=== PATIENT | male | born 1930 | race African-American/Black ===

== ENCOUNTER 2018-12-23 15:18 | Inpatient (IN) | payer OTHER ==
[2018-12-23] VITALS (30 sets, daily range): BP systolic 79–120; BP diastolic 34–59
[~2018-12-23] VITALS: Ht 170.2 cm; Wt 61.4 kg
[~2018-12-23 15:18] MED LIST: ALBUTEROL SULF8.5 GM INH; ATENOLOL100 MG ORAL; NORVASC10 MG ORAL; TAMSULOSIN HCL0.4 MG PO; TRAVATAN Z5 ML OP; TYLENOL EXTRA500 MG ORAL; UNOBMED
[2018-12-23] MEDS ORDERED: Sodium Chloride 1,400 ML IVLG ONE (15:30)
--- NOTE | 2018-12-23 15:30 | Emergency Room Report ---
History of Present Illness General Chief Complaint: Altered Level of Consciousness Source: Medical Record, EMS Present Illness HPI Disclaimer: Please note that this report is being documented using DRAGON technology. This can lead to erroneous entry secondary to incorrect interpretation by the dictating instrument. HPI: 88-year-old male with reported history of hypertension, hyperlipidemia, CHF , COPD and dementia presents for evaluation of hypotension altered mental status. According to EMS, he was in his usual state of health this morning but was more lethargic and less talkative during lunch. He was checked on approximately 2:30 PM found altered and nonresponsive. His reported baseline is alert and oriented x2 and conversant. He was not responding to verbal stimuli. He was also found hypotensive with systolics in the 80s. He was transported for medical evaluation and remained hypotensive en route. He received probably 250 cc bolus en route. Patient cannot provide any significant history. No reported trauma. Slightly tachypneic. PMH: Reported CHF, COPD, dementia, hypertension PSH: Could not obtain Allergies: Lisinopril, atenolol, tiotropium listed in medical chart Social Hx: Could not obtain from patient Allergies: Coded Allergies: DORZOLAMIDE (Unverified Allergy, Unknown, 12/23/18) LISINOPRIL (Unverified Allergy, Unknown, 12/23/18) TIMOLOL (Unverified Allergy, Unknown, 12/23/18) TIOTROPIUM (Unverified Allergy, Unknown, 12/23/18) Nursing Documentation-PMH Hx Cardiac Problems: Yes Hx Hypertension: Yes - HYPERTENSION Hx COPD: Yes - COPD Hx Cancer: No Hx Gastrointestinal Problems: No - GERD, BPH, Hx Neurological Problems: No Review of Systems All Other Systems: limited - Could not obtain from patient due to clinical condition Physical Exam Vital Signs Date Time Temp Pulse Resp B/P (MAP) Pulse Ox O2 Delivery O2 Flow Rate FiO2 12/23/18 15:13 98.1 59 19 89/41 (57) 93 Nasal Cannula 2.0 General: Awake, nonverbal, tachypneic HEENT: NC/AT. Eyes are open. Pupils are 4 mm bilaterally. EOMI. very dry mucous membranes Cardiovascular: RRR. S1 and S2 normal. No murmur appreciated Resp: Mild tachypnea. Slight increase in work of breathing. No cough. Faint crackles heard bilaterally. Expiratory wheezes present as well. Abdomen: Abdomen is soft, nondistended. Nontender Skin: Intact. No abrasions, laceration or rash over the exposed skin MSK: There is a bandage over the left heel for a pressure ulcer. Neuro: Awake. Moaning, purposeful movements to pain. Nonverbal. GCS 10 Procedures Critical Care Time Critical Care Time Total critical care time: Approximately 75 minutes Due to a high probability of clinically significant, life threatening deterioration, the patient required the highest level of preparedness to intervene emergently and I personally spent this critical care time directly and personally managing the patient. This critical care time included obtaining a history, examining the patient, pulse oximetry, ordering and reviewing studies , ordering treatments, evaluating response to treatment and updating management plan as needed, frequent reassessment and discussion with other providers as well as arranging for ultimate disposition. This critical to care time was performed to assess and manage the high probability of life-threatening deterioration that could result in multiorgan failure. This critical care time is separate from the separately billable procedures and treating other patients. Ultrasound Ultrasound : Consent: Emergent Progress No obvious pericardial effusion. Symmetrical squeeze. Central Line Central Line : Consent: Emergent Central Line Lumen: triple Maximal Sterile Barrier Tech: yes cap, yes mask, yes sterile gown, yes sterile gloves, yes large sterile sheet, yes hand hygiene, yes chlorhexidine prep No Max Barrier Tech Because: emergency insertion Central Line Postion: internal jugular (R) Anesthesia: Lidocaine cc's of anesthesia: 5 Complications: none Central Line Post Position: sutured, good blood return, position confirmed w / CXR Attempts: One Patient Tolerated: Well Complications: None Medical Decision Making Diagnostic Impression: Primary Impression: COPD with acute exacerbation Additional Impressions: Hypercapnic respiratory failure Anemia Sepsis UTI (urinary tract infection) Hypothermia ER Course 88-year-old male found hypotensive and altered at his nursing facility today. Different includes was not limited to sepsis, CHF exacerbation, COPD exacerbation, ACS, UTI, dehydration, acidosis, paracardial effusion, pneumothorax, pneumonia. First oral temperature was within normal limits however his core temperature taken by rectal probe is 92 degrees. We will start rewarming. Patient is tachypneic and after a bedside ultrasound has ruled out pericardial effusion emergent blood gas was taken showing significant CO2 retention and acidosis. We will start continuous DuoNeb's, give prednisone , start on BiPAP and if fails or unable to tolerate will intubate. He is full code. Will start on end-tidal CO2 monitor. Patient will require admission to the intensive care unit. Blood cultures have been sent and the patient is receiving sepsis level fluids at 30 cc/kg as he has no evidence of volume overload clinically. Laboratory Tests Test 12/23/18 15:15 12/23/18 15:25 12/23/18 15:45 12/23/18 16:23 Arterial Blood pH 7.207 (7.350-7.450) 7.215 (7.350-7.450) Arterial Blood Partial Pressure CO2 137.4 mmHg (35.0-45.0) *H 118.6 mmHg (35.0-45.0) *H Arterial Blood Partial Pressure O2 63.5 mmHg (75.0-100.0) L 134.8 mmHg (75.0-100.0) H Arterial Blood HCO3 53.5 mmol/L (22.0-26.0) *H 46.9 mmol/L (22.0-26.0) *H Arterial Blood Oxygen Saturation 90.1 % (95-100) L 98.3 % (95-100) Arterial Blood Base Excess 21.2 (-2-2) *H 15.7 (-2-2) *H Samuel Test Positive Positive White Blood Count 10.8 K/UL (4.8-10.8) Red Blood Count 3.02 M/UL (4.70-6.10) L Hemoglobin 9.0 G/DL (14.2-18.0) L Hematocrit 28.5 % (42.0-52.0) L Mean Corpuscular Volume 94 FL (80-99) Mean Corpuscular Hemoglobin 29.7 PG (27.0-31.0) Mean Corpuscular Hemoglobin Concent 31.5 G/DL (32.0-36.0) L Red Cell Distribution Width 13.7 % (11.6-14.8) Platelet Count 215 K/UL (150-450) Mean Platelet Volume 7.1 FL (6.5-10.1) Neutrophils (%) (Auto) 79.8 % (45.0-75.0) H Lymphocytes (%) (Auto) 9.8 % (20.0-45.0) L Monocytes (%) (Auto) 9.1 % (1.0-10.0) Eosinophils (%) (Auto) 0.5 % (0.0-3.0) Basophils (%) (Auto) 0.9 % (0.0-2.0) Sodium Level 148 MMOL/L (136-145) H Potassium Level 4.3 MMOL/L (3.5-5.1) Chloride Level 105 MMOL/L (98-107) Carbon Dioxide Level > 45 MMOL/L (21-32) *H Blood Urea Nitrogen 18 mg/dL (7-18) Creatinine 0.5 MG/DL (0.55-1.30) L Estimate Glomerular Filtration Rate mL/min (>60) Glucose Level 196 MG/DL (74-106) H Lactic Acid Level 0.80 mmol/L (0.4-2.0) Calcium Level 8.7 MG/DL (8.5-10.1) Phosphorus Level 3.9 MG/DL (2.5-4.9) Magnesium Level 1.9 MG/DL (1.8-2.4) Total Bilirubin 0.3 MG/DL (0.2-1.0) Aspartate Amino Transferase (AST) 15 U/L (15-37) Alanine Aminotransferase (ALT) 20 U/L (12-78) Alkaline Phosphatase 95 U/L (46-116) Total Creatine Kinase 19 U/L (26-308) L Creatine Kinase MB 2.3 NG/ML (0.0-3.6) Creatine Kinase MB Relative Index 12.1 Troponin I 0.000 ng/mL (0.000-0.056) Pro-B-Type Natriuretic Peptide 390 pg/mL (0-125) H Total Protein 6.2 G/DL (6.4-8.2) L Albumin 2.1 G/DL (3.4-5.0) L Globulin 4.1 g/dL Albumin/Globulin Ratio 0.5 (1.0-2.7) L Urine Color Pale yellow Urine Appearance Cloudy Urine pH 5 (4.5-8.0) Urine Specific [place] 1.015 (1.005-1.035) Urine Protein 2+ (NEGATIVE) H Urine Glucose (UA) Negative (NEGATIVE) Urine Ketones Negative (NEGATIVE) Urine Blood 5+ (NEGATIVE) H Urine Nitrite Negative (NEGATIVE) Urine Bilirubin Negative (NEGATIVE) Urine Urobilinogen Normal MG/DL (0.0-1.0) Urine Leukocyte Esterase 3+ (NEGATIVE) H Urine RBC Tntc /HPF (0 - 0) H Urine WBC 30-40 /HPF (0 - 0) H Urine Squamous Epithelial Cells Many /LPF (NONE/OCC) H Urine Bacteria Many /HPF (NONE) H Test 12/23/18 17:37 Arterial Blood pH 7.276 (7.350-7.450) Arterial Blood Partial Pressure CO2 93.2 mmHg (35.0-45.0) *H Arterial Blood Partial Pressure O2 53.9 mmHg (75.0-100.0) L Arterial Blood HCO3 42.4 mmol/L (22.0-26.0) *H Arterial Blood Oxygen Saturation 87.5 % (95-100) *L Arterial Blood Base Excess 13.0 (-2-2) *H Samuel Test Positive EKG Diagnostic Results EKG Time: 15:22 Rate: normal Rhythm: NSR ST Segments: no acute changes Other Impression Sinus rhythm, normal axis, normal intervals, no acute ST segment changes. Slight J-point elevation in V3, V4, V5. Rhythm Strip Diag. Results Rhythm Strip Time: 15:22 EP Interpretation: yes Rate: 60s Rhythm: NSR Chest X-Ray Diagnostic Results Chest X-Ray Diagnostic Results #1: Chest X-Ray Ordered: Yes # of Views/Limited/Complete: 1 View Indication: Shortness of Breath EP Interpretation: Yes Interpretation: no consolidation, no pneumothorax, other - Effusion in the left lower lobe, no obvious infiltrate, hyperinflation consistent with COPD Impression: Other - Hyperinflation consistent with COPD, small effusion in the left lower lobe, no consolidation Electronically Signed by: Electronically signed by Dr. Bradly Schreiber Chest X-Ray Diagnostic Results #2: Chest X-Ray Ordered: Yes # of Views/Limited/Complete: 1 View Indication: Other EP Interpretation: Yes Interpretation: other - Right internal jugular line in place in the right atrium. No pneumothorax. Bilateral atelectasis remains with a left-sided effusion Impression: Other - Satisfactory line placement of right internal jugular central line Electronically Signed by: Electronically signed by Dr. Bradly Schreiber Reevaluation Time: 15:45 Last Vital Signs Date Time Temp Pulse Resp B/P (MAP) Pulse Ox O2 Delivery O2 Flow Rate FiO2 12/23/18 15:13 98.1 59 19 89/41 (57) 93 Nasal Cannula 2.0 Reevaluation Impression EKG shows sinus rhythm and is nonischemic though there is J-point elevation which would correlate with hypothermia. Patient continues rewarming. Started on BiPAP and is tolerating well at this time. Receiving duo nebs and steroids. Antibiotics given empirically for sepsis given his hypotension and hypothermia 1800; Patient is tolerating BiPAP well his blood gas continues to is improved. We will increase the inspiratory pressure to 18. Labs otherwise show evidence of a urinary tract infection though this may be a contamination as there are many squamous cells. He was treated with Vanco mycin and Zosyn on arrival. His pressures are improving and currently 110/54. Lactate is normal. Given his hypothermia, tachycardia, hypotension and respiratory failure he admitted to the ICU for further management on BiPAP. Admitted to Dr. Pena as he is the hospitalist assigned for his nursing facility. 1930: Shortly after the patient was taken to the ICU was called up for hypotension. Reportedly his pressures were again in the 70s. On my arrival they were greater than 100 mmHg systolic however a right internal jugular line was placed in case hypotension should again occur. He remains on BiPAP in stable condition. There were no complications, appropriate placement in the right atrium, no pneumothorax. Please see separate procedure note section of this note for full details. Further care per ICU team. Disposition: ADMITTED INPATIENT Condition: Critical Bradly Schreiber MD Dec 23, 2018 15:30
[2018-12-23 15:42] LABS: BASOPHILS % (AUTO) 0.9 % (0.0-2.0); EOSINOPHILS % (AUTO) 0.5 % (0.0-3.0); HEMATOCRIT 28.5 % (42.0-52.0); LYMPHOCYTES % (AUTO) 9.8 % (20.0-45.0); MEAN CORPUSCULAR VOLUME 94 FL (80-99); MONOCYTES % (AUTO) 9.1 % (1.0-10.0); NEUTROPHILS % (AUTO) 79.8 % (45.0-75.0); PLATELET COUNT 215 K/UL (150-450); RED BLOOD COUNT 3.02 M/UL (4.70-6.10); RED CELL DISTRIBUTION WIDTH 13.7 % (11.6-14.8); WHITE BLOOD COUNT 10.8 K/UL (4.8-10.8)
[2018-12-23] MEDS ORDERED: Solu-MEDROL 125mg Inj IVP ONE (15:45)
[2018-12-23 15:54] LABS: BLOOD UREA NITROGEN 18 mg/dL (7-18); CALCIUM 8.7 MG/DL (8.5-10.1); CHLORIDE 105 MMOL/L (98-107); CREATININE 0.5 MG/DL (0.55-1.30); POTASSIUM 4.3 MMOL/L (3.5-5.1); SODIUM 148 MMOL/L (136-145)
[2018-12-23 16:08] LABS: ALANINE AMINOTRANSFERASE 20 U/L (12-78); ALBUMIN 2.1 G/DL (3.4-5.0); ALBUMIN/GLOBULIN RATIO 0.5 (1.0-2.7); ALKALINE PHOSPHATASE 95 U/L (46-116); ASPARTATE AMINO TRANSFERASE 15 U/L (15-37); BILIRUBIN,TOTAL 0.3 MG/DL (0.2-1.0); CKMB 2.3 NG/ML (0.0-3.6); CREATINE KINASE 19 U/L (26-308); PHOSPHORUS 3.9 MG/DL (2.5-4.9)
--- NOTE | 2018-12-23 16:10 | Diagnostic Imaging Report ---
Indication: Dyspnea Comparison: 02/26/2013 A single view chest radiograph was obtained. Findings: Lungs are hyperexpanded consistent with COPD. The hilar vessels are prominent. Bones are osteopenic. There is slight blunting of the left costophrenic angle which is likely due to pleural thickening as it is unchanged from 2014. IMPRESSION: COPD
[2018-12-23 16:14] LABS: CARBON DIOXIDE > 45 MMOL/L (21-32)
[2018-12-23] MEDS ORDERED: Piperacillin/Tazobactam 3.375 GM in NS 110 ML IVPB ONE (16:15)
[2018-12-23] MEDS ORDERED: Vancomycin 1 GM in NS 275 ML IVPB ONE (16:15)
[2018-12-23] MEDS: Albuterol/Ipratropium 3ml neb HHN SCH ×7 (16:22→17:15)
[2018-12-23 16:34] LABS: APPEARANCE,URINE CLOUDY; BILIRUBIN, URINE NEGATIVE (NEGATIVE); COLOR,URINE PALE YELLOW; GLUCOSE, URINE (UA) NEGATIVE (NEGATIVE); KETONES,URINE NEGATIVE (NEGATIVE); LEUKOCYTE ESTERASE ,URINE 3+ (NEGATIVE); NITRITE,URINE NEGATIVE (NEGATIVE); PH,URINE 5 (4.5-8.0); PROTEIN,URINE 2+ (NEGATIVE); UROBILINOGEN,URINE NORMAL MG/DL (0.0-1.0)
[2018-12-23] MEDS ORDERED: FUROSEMIDE40 MG ORAL (16:51)
[2018-12-23] MEDS ORDERED: FLOMAX0.4 MG ORAL (16:51)
[2018-12-23] MEDS ORDERED: IPRATROPIU0.2 MG/1 M HHN (16:51)
[2018-12-23] MEDS ORDERED: TRUSOPT10 ML BOTH EYES (16:51)
[2018-12-23] MEDS ORDERED: LOSARTAN-HCTZ1 EACH ORAL (16:51)
[2018-12-23] MEDS ORDERED: Lidocaine 1% 10mg/ml/Epi 0.005mg/ml 30ml vial INJ ONE (19:19)
--- NOTE | 2018-12-23 19:30 | History and Physical Report ---
DATE OF ADMISSION: 12/23/2018 CHIEF COMPLAINT: Lethargy. HISTORY OF PRESENT ILLNESS: The patient was brought from [facility] because he was lethargic. He was found to have respiratory failure with pCO2 of 137. He is known to have severe COPD and was hospitalized recently for exacerbation. He was placed on BiPAP and given fluids and antibiotics and improved. PAST MEDICAL HISTORY: End-stage lung disease with recent exacerbation, hypoxic and hypercapnic respiratory failure, recently treated with steroids until November 05. He is on BiPAP at night. 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 ALLERGIES: Dorzolamide, lisinopril, timolol, tiotropium, Spiriva. MEDICATIONS: Albuterol, amlodipine, atenolol, dorzolamide (reported to be allergic), Lasix, Atrovent, losartan, hydrochlorothiazide, tamsulosin, Travatan. CODE STATUS: Full code. According to POLST signed by him two months ago. REVIEW OF SYSTEMS: Cannot be obtained. PHYSICAL EXAMINATION: GENERAL: The patient appears cachectic and lethargic, mumbling. VITAL SIGNS: Bradycardic down to 52, but now up to 62. His temperature was very low at 92.5. Blood pressure was 89/41, but improved. Respirations 17 to 30. Saturation is satisfactory on BiPAP. SKIN: Warm and dry. HEENT: Temporal muscle wasting. NECK: No jugular venous distention. CHEST: Decreased air entry and hyper-resonance. CARDIAC: Regular on the monitor. Heart tones are distant. Difficult to hear. ABDOMEN: Soft. It is soft with mild accessory muscle use. No liver or spleen enlargement. No ascites. EXTREMITIES: Muscle wasting is noted. There is no clubbing, cyanosis, or edema. DIAGNOSTIC DATA: Chest x-ray shows hyperinflation. Blood gas shows initial pH is 7.21, pCO2 137, pO2 63, bicarbonate 53, base excess 21. Subsequent blood gas repeated several times, most recent one shows pH 7.27, pCO2 93, pO2 54, and base excess 13. Saturation was most recently 87.5. IMPRESSION: 1. Acute on chronic respiratory failure. 2. 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 3. Cachexia and malnutrition. 4. Atherosclerotic aortic and cardiac disease. 5. History of hypertension, now hypotensive. 6. Urinary tract infection. 7. Diastolic heart failure. 8. Glaucoma. 9. Prostate hypertrophy. 10. Anemia. PLAN: The patient will be admitted to intensive care unit on BiPAP over night. We will give steroids, antibiotics and respiratory treatments as well as intravenous fluids. His prognosis is guarded. I will contact the family. Eliseo Pena M.D. DR: Garrett JOB#: [id number] CC: Eliseo Pena M.D.; Fax#: [phone]
[2018-12-23] MEDS ORDERED: Lidocaine 1% Plain 30 ml INJ ONE (20:00)
--- NOTE | 2018-12-23 20:23 | Diagnostic Imaging Report ---
EXAM: XR Chest, 1 View CLINICAL HISTORY: LINE TECHNIQUE: Frontal view of the chest. COMPARISON: 12 23 18 at 1551 hrs. FINDINGS: Lungs: No change in appearance the lungs. Interval placement of a right-sided jugular vein catheter with the distal tip in appropriate position at the junction superior vena cava and the right atrium Pleural space: Unremarkable. No pneumothorax. Heart: Unremarkable. No cardiomegaly. Mediastinum: Unremarkable. Bones joints: Unremarkable. IMPRESSION: Right-sided central venous catheter in good position. No change in appearance the lungs compared to prior study. No evidence of pneumothorax.
[2018-12-23] MEDS ORDERED: Lidocaine 1% MPF 10mg/ml 5ml INJ ONE (20:30)
--- NOTE | 2018-12-23 20:51 | Diagnostic Imaging Report ---
EXAM: US Duplex Bilateral Lower Extremities Veins CLINICAL HISTORY: DVT TECHNIQUE: Real-time duplex ultrasound scan of the bilateral lower extremity veins integrating B-mode two-dimensional vascular structure, Doppler spectral analysis, color flow Doppler imaging and compression. COMPARISON: No relevant prior studies available. FINDINGS: Right deep veins: Unremarkable. No DVT in the right common femoral, femoral, proximal deep femoral or popliteal veins. The veins demonstrate normal color flow, are normally compressible, with normal phasic flow and or augmentation response. Right superficial veins: Unremarkable. No thrombus in the visualized right great saphenous vein. Left deep veins: Unremarkable. No DVT in the left common femoral, femoral, proximal deep femoral or popliteal veins. The veins demonstrate normal color flow, are normally compressible, with normal phasic flow and or augmentation response. Left superficial veins: Unremarkable. No thrombus in the visualized left great saphenous vein. Soft tissues: No acute findings. No popliteal cyst. IMPRESSION: Normal bilateral lower extremity duplex venous ultrasound.
[2018-12-23] MEDS ORDERED: D5 1/2NS w/KCl 20mEq 1,000 ML IV SCH (21:00)
[2018-12-23] MEDS: cefTRIAXone 1gm/D5W 55ml IVPB SCH ×2 (21:50)
[2018-12-23] MEDS: Azithromycin 500 MG in D5W 275 ML IV SCH (21:50)
[2018-12-23] MEDS: Solu-MEDROL 40mg Inj IV SCH (22:30)
--- NOTE | 2018-12-23 23:00 | Consultation ---
DATE OF CONSULTATION: 12/23/2018 CARDIOLOGY CONSULTATION CONSULTING PHYSICIAN: Cody Melendez M.D. REQUESTING PHYSICIAN: Eliseo Pena M.D. REASON FOR CONSULTATION: Shock. HISTORY OF PRESENT ILLNESS: The patient is an 88-year-old male, who resides at a [facility] and was noted to be increasingly lethargic today. He was transported to the emergency room and was noted to have acute respiratory failure and respiratory acidosis. He required BiPAP support and became hypotensive despite fluid resuscitation. He is now on IV intravenous pressors. PAST MEDICAL HISTORY: Includes COPD with hypercapnia and hypoxia, chronic diastolic congestive heart failure, hypertension, coronary artery disease, glaucoma, gastroesophageal reflux disease, osteoarthritis, prostatic hypertrophy, decubitus, anemia of chronic disease, and chronic hematuria. ALLERGIES: Include dorzolamide, lisinopril, timolol, tiotropium Spiriva. MEDICATIONS: Prior to admission, reviewed and reconciled and include atenolol, Lasix, amlodipine, dorzolamide despite noted allergy, losartan, hydrochlorothiazide, tamsulosin, Travatan, Atrovent. SOCIAL HISTORY: Not obtainable. FAMILY HISTORY: None known. REVIEW OF SYSTEMS: Otherwise not obtainable. PHYSICAL EXAMINATION: GENERAL: Thin, frail, cachectic. VITAL SIGNS: Temperature 92.5, blood pressure 89/41 initially, now 100/50 on pressors, respiratory rate 18 to 30. SKIN: With decubitus as noted. HEENT: Temporal wasting. LUNGS: On BiPAP support. Diminished breath sounds. No wheezing. HEART: Regular rhythm and rate. Normal S1, S2. ABDOMEN: Soft. No ascites. EXTREMITIES: With no edema. LABORATORY AND DIAGNOSTIC DATA: Chest x-ray with hyperinflation. ABG 7.21, 137, 63. Sodium 148, potassium 4.3, bicarbonate 45, BUN 18, and creatinine 0.5, glucose 196. Pro-natriuretic peptide 390, troponin 0, albumin 2.1. White count is 10.8, hemoglobin 9. IMPRESSION: 1. Acute respiratory failure. 2. Acute on chronic respiratory acidosis. 3. metabolic alkalosis. 4. Hypoxia. 5. Shock. 6. Hypothermia. 7. Hypovolemia. 8. Probable sepsis. 9. Hypernatremia and dehydration. 10. Anemia of chronic disease. 11. Severe protein-calorie malnutrition. 12. COPD. 13. Chronic diastolic congestive heart failure. 14. Relative bradycardia due to beta-yesika therapy. CONDITION: Critical. PROGNOSIS: Guarded. PLAN: 1. Pressor support, taper as able. 2. BiPAP support. 3. Monitor acid-base parameters. 4. Once blood pressure parameters have stabilized, transition from isotonic to hypotonic IV fluids. 5. Hold all cardiac medications. 6. DVT and stress ulcer prophylaxis. 7. Steroids and bronchodilators per patent litigation associate. 8. Empiric antimicrobials. 9. Warming measures with Radha Hugger. 10. Hold the beta-yesika. Cody Melendez M.D. DR: PARVIN JOB#: [id number] CC:
[2018-12-24] VITALS (35 sets, daily range): BP systolic 92–160; BP diastolic 41–98
[2018-12-24] MEDS: Albuterol/Ipratropium 3ml neb HHN SCH ×6 (02:56→23:11)
[2018-12-24 06:20] LABS: HEMATOCRIT 27.4 % (42.0-52.0); HEMOGLOBIN 8.1 G/DL (14.2-18.0); MEAN CORPUSCULAR VOLUME 99 FL (80-99); PLATELET COUNT 206 K/UL (150-450); RED BLOOD COUNT 2.78 M/UL (4.70-6.10); WHITE BLOOD COUNT 11.4 K/UL (4.8-10.8)
[2018-12-24] MEDS: Solu-MEDROL 40mg Inj IV SCH ×3 (06:21→22:01)
[2018-12-24 07:32] LABS: ANION GAP 2 mmol/L (5-15); BLOOD UREA NITROGEN 14 mg/dL (7-18); CALCIUM 7.7 MG/DL (8.5-10.1); CARBON DIOXIDE 36 MMOL/L (21-32); CHLORIDE 108 MMOL/L (98-107); CREATININE 0.5 MG/DL (0.55-1.30); POTASSIUM 4.3 MMOL/L (3.5-5.1); SODIUM 146 MMOL/L (136-145)
--- NOTE | 2018-12-24 09:32 | Pulmonolgy Critical Care Note ---
Critical Care - Asmt/Plan Assessment/Plan: 1. Acute on chronic respiratory failure. 2. 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 3. Cachexia and malnutrition. 4. Atherosclerotic aortic and cardiac disease. 5. History of hypertension, now hypotensive. 6. Urinary tract infection. 7. Diastolic heart failure. 8. Glaucoma. 9. Prostate hypertrophy. 10. Anemia. continue bipap for now no wean nebs and suctrino NPO IVf abx steroids at current dose wound care cxr and labs in am Respiratory: CXR, ABG Cardiac: continue to monitor HR/BP Infectious Disease: check cultures, continue antibiotics Gastrointestinal: hold feedings Neurologic: PRN Morphine Disposition: keep in ICU Time Spent (Minutes): 40 Notes Reviewed: cardio Discussed with: nurses Critical Care - Objective Last 24 Hour Vital Signs Date Time Temp Pulse Resp B/P (MAP) Pulse Ox O2 Delivery O2 Flow Rate FiO2 12/24/18 08:00 97.5 62 15 126/58 (80) 100 12/24/18 08:00 30 12/24/18 08:00 Bi-pap 12/24/18 07:13 74 17 100 Facial 30 70 24 100 Bi-Pap 30 12/24/18 07:00 66 16 144/78 (100) 98 12/24/18 06:00 96.4 73 34 140/71 (94) 96 12/24/18 05:10 66 16 115/58 (77) 98 12/24/18 05:00 61 19 107/64 (78) 99 12/24/18 04:57 67 33 95 Facial 30 12/24/18 04:30 69 20 112/64 (80) 97 12/24/18 04:00 40 12/24/18 04:00 Bi-pap 12/24/18 04:00 77 31 124/74 (91) 94 12/24/18 04:00 72 12/24/18 03:30 69 20 118/59 (78) 99 12/24/18 03:06 72 26 95 Bi-Pap 30 30 12/24/18 03:00 69 20 125/58 (80) 100 12/24/18 02:56 74 25 100 Facial 40 Bi-Pap 40 12/24/18 02:30 74 18 133/63 (86) 96 12/24/18 02:15 72 27 131/61 (84) 98 12/24/18 02:00 72 21 132/65 (87) 97 12/24/18 01:45 73 21 132/63 (86) 97 12/24/18 01:30 72 19 124/61 (82) 98 12/24/18 01:15 72 20 119/52 (74) 100 12/24/18 01:00 96.8 70 19 115/50 (71) 99 12/24/18 00:48 73 20 94 Facial 40 12/24/18 00:46 72 19 111/59 (76) 99 12/24/18 00:30 72 16 113/57 (75) 99 12/24/18 00:15 72 18 111/56 (74) 99 12/24/18 00:00 73 12/24/18 00:00 73 20 107/72 (84) 98 12/24/18 00:00 40 12/24/18 00:00 Bi-pap 12/23/18 23:45 73 17 104/53 (70) 97 12/23/18 23:30 72 23 98/53 (68) 95 12/23/18 23:30 104/53 12/23/18 23:15 75 27 96/48 (64) 95 12/23/18 23:00 81 24 100/50 (67) 90 12/23/18 23:00 96/48 12/23/18 22:47 78 32 96 Facial 30 12/23/18 22:30 92/43 12/23/18 22:30 72 19 82/50 (61) 100 12/23/18 22:25 70 18 88/49 (62) 100 12/23/18 22:15 70 15 89/57 (68) 100 12/23/18 22:15 70 15 89/57 (68) 100 12/23/18 22:00 67 17 95/49 (64) 100 12/23/18 22:00 67 17 95/49 (64) 100 12/23/18 21:45 64 22 98/57 (71) 99 12/23/18 21:45 64 22 98/57 (71) 99 12/23/18 21:30 98/57 12/23/18 21:30 63 25 100 12/23/18 21:30 64 27 107/49 (68) 99 12/23/18 21:15 64 27 107/49 (68) 99 12/23/18 21:00 60 23 120/59 (79) 98 12/23/18 21:00 60 23 120/59 (79) 98 12/23/18 20:47 61 25 99/57 (71) 98 12/23/18 20:45 61 25 99/57 (71) 98 12/23/18 20:45 59 26 99 Facial 40 12/23/18 20:35 87/53 12/23/18 20:30 57 29 103/53 (70) 98 12/23/18 20:30 57 29 103/53 (70) 98 12/23/18 20:23 60 24 101/43 (62) 99 12/23/18 20:23 60 24 101/43 (62) 99 12/23/18 20:15 58 24 87/48 (61) 98 12/23/18 20:15 58 24 87/48 (61) 98 12/23/18 20:00 55 24 101/56 (71) 99 12/23/18 20:00 55 24 101/56 (71) 99 12/23/18 19:50 64 28 97/43 (61) 97 12/23/18 19:50 64 28 97/43 (61) 97 12/23/18 19:45 55 24 87/48 (61) 99 12/23/18 19:40 40 12/23/18 19:30 58 17 96/44 (61) 99 12/23/18 19:30 Bi-pap 12/23/18 19:30 58 17 96/44 (61) 99 12/23/18 19:15 58 24 102/44 (63) 95 12/23/18 19:15 58 24 102/44 (63) 95 12/23/18 19:07 57 22 93/41 (58) 95 12/23/18 19:07 57 22 100/40 (60) 95 12/23/18 19:05 58 21 86/35 (52) 94 12/23/18 19:05 58 21 86/35 (52) 94 12/23/18 19:00 58 12/23/18 19:00 60 15 79/34 (49) 98 12/23/18 19:00 95.0 60 15 93/41 (58) 98 12/23/18 18:39 64 32 99 Facial 40 12/23/18 18:30 93.5 62 18 108/52 100 Nasal Cannula 4.0 12/23/18 17:57 61 26 98 Facial 40 12/23/18 17:44 93.5 61 18 110/54 100 Bi-pap 40 12/23/18 17:14 93.5 58 18 98/34 100 Bi-pap 30 12/23/18 16:54 57 24 100 Facial 30 55 23 100 Bi-Pap 30 12/23/18 16:52 2.0 30 12/23/18 16:44 93.5 57 17 105/48 100 Bi-pap 30 12/23/18 16:44 30 12/23/18 16:14 92.5 52 19 112/51 99 Bi-pap 40 12/23/18 15:50 2.0 40 12/23/18 15:45 56 23 99 Facial 40 12/23/18 15:44 58 28 Nasal Cannula 2.0 12/23/18 15:44 92.5 58 28 98/47 94 Nasal Cannula 2.0 12/23/18 15:40 60 30 92 Nasal Cannula 2.0 28 12/23/18 15:13 59 19 89/41 (57) 93 Nasal Cannula 2.0 Status: somnolent Condition: critical Lungs: rhonchi Heart: HR/BP stable Extremities: no C/C/E Micro: Microbiology Date/Time Source Procedure Growth Status 12/23/18 15:45 Urine,Clean Catch Urine Culture - Preliminary NO GROWTH Resulted Critical Care - Subjective ROS Limited/Unobtainable: Yes FI02: 30 Vent Support Mode: BiLevel Sputum Amount: None I&O: Intake and Output 12/23/18 12/24/18 18:59 06:59 Intake Total 1348.750 ml Output Total 50 ml 475 ml Balance -50 ml 873.750 ml Intake IV Total 1348.750 ml Output Urine Total 50 ml 475 ml Subjective: on bipap 26/06 TV around 350-400 somnoelnt npo on ivf abx steroid adn nebs abg better ua positive CXR: pna Labs: Current Medications Medications (Trade) Dose Ordered Sig/Katie Route PRN Reason Start Time Stop Time Status Last Admin Dose Admin Albuterol/ Ipratropium (Albuterol/ Ipratropium) 3 ml Q4HRT HHN 12/24/18 03:00 12/29/18 02:59 11/16/19 07:16 Azithromycin 500 mg/Dextrose 275 ml @ 275 mls/hr Q24H IV 12/23/18 21:00 12/30/18 20:59 12/23/18 21:50 Ceftriaxone Sodium 1 gm/ Dextrose 55 ml @ 110 mls/hr Q24H IVPB 12/23/18 22:00 12/30/18 21:59 12/23/18 21:50 Chlorhexidine Gluconate (Radhika-Hex 2%) 1 applic DAILY@2000 TOPIC 12/24/18 20:00 01/23/19 19:59 Methylprednisolone Sodium Succinate (Solu-MEDROL) 40 mg EVERY 8 HOURS IV 12/23/18 22:00 01/22/19 21:59 12/24/18 06:21 Norepinephrine Bitartrate 4 mg/ Dextrose 250 ml @ 0 mls/hr Q24H IV 12/23/18 20:00 01/22/19 19:59 12/23/18 20:35 Pantoprazole (Protonix) 40 mg DAILY IVP 12/24/18 09:00 01/23/19 08:59 Sodium Chloride 1,000 ml @ 125 mls/hr Q8H IV 12/23/18 21:45 01/22/19 21:44 12/24/18 06:21 Laboratory Tests Test 12/23/18 15:15 12/23/18 15:25 12/23/18 15:45 12/23/18 16:23 Arterial Blood pH 7.207 (7.350-7.450) 7.215 (7.350-7.450) Arterial Blood Partial Pressure CO2 137.4 mmHg (35.0-45.0) *H 118.6 mmHg (35.0-45.0) *H Arterial Blood Partial Pressure O2 63.5 mmHg (75.0-100.0) L 134.8 mmHg (75.0-100.0) H Arterial Blood HCO3 53.5 mmol/L (22.0-26.0) *H 46.9 mmol/L (22.0-26.0) *H Arterial Blood Oxygen Saturation 90.1 % (95-100) L 98.3 % (95-100) Arterial Blood Base Excess 21.2 (-2-2) *H 15.7 (-2-2) *H Samuel Test Positive Positive White Blood Count 10.8 K/UL (4.8-10.8) Red Blood Count 3.02 M/UL (4.70-6.10) L Hemoglobin 9.0 G/DL (14.2-18.0) L Hematocrit 28.5 % (42.0-52.0) L Mean Corpuscular Volume 94 FL (80-99) Mean Corpuscular Hemoglobin 29.7 PG (27.0-31.0) Mean Corpuscular Hemoglobin Concent 31.5 G/DL (32.0-36.0) L Red Cell Distribution Width 13.7 % (11.6-14.8) Platelet Count 215 K/UL (150-450) Mean Platelet Volume 7.1 FL (6.5-10.1) Neutrophils (%) (Auto) 79.8 % (45.0-75.0) H Lymphocytes (%) (Auto) 9.8 % (20.0-45.0) L Monocytes (%) (Auto) 9.1 % (1.0-10.0) Eosinophils (%) (Auto) 0.5 % (0.0-3.0) Basophils (%) (Auto) 0.9 % (0.0-2.0) Sodium Level 148 MMOL/L (136-145) H Potassium Level 4.3 MMOL/L (3.5-5.1) Chloride Level 105 MMOL/L (98-107) Carbon Dioxide Level > 45 MMOL/L (21-32) *H Blood Urea Nitrogen 18 mg/dL (7-18) Creatinine 0.5 MG/DL (0.55-1.30) L Estimat Glomerular Filtration Rate mL/min (>60) Glucose Level 196 MG/DL (74-106) H Lactic Acid Level 0.80 mmol/L (0.4-2.0) Calcium Level 8.7 MG/DL (8.5-10.1) Phosphorus Level 3.9 MG/DL (2.5-4.9) Magnesium Level 1.9 MG/DL (1.8-2.4) Total Bilirubin 0.3 MG/DL (0.2-1.0) Aspartate Amino Transf (AST/SGOT) 15 U/L (15-37) Alanine Aminotransferase (ALT/SGPT) 20 U/L (12-78) Alkaline Phosphatase 95 U/L (46-116) Total Creatine Kinase 19 U/L (26-308) L Creatine Kinase MB 2.3 NG/ML (0.0-3.6) Creatine Kinase MB Relative Index 12.1 Troponin I 0.000 ng/mL (0.000-0.056) Pro-B-Type Natriuretic Peptide 390 pg/mL (0-125) H Total Protein 6.2 G/DL (6.4-8.2) L Albumin 2.1 G/DL (3.4-5.0) L Globulin 4.1 g/dL Albumin/Globulin Ratio 0.5 (1.0-2.7) L Urine Color Pale yellow Urine Appearance Cloudy Urine pH 5 (4.5-8.0) Urine Specific [place] 1.015 (1.005-1.035) Urine Protein 2+ (NEGATIVE) H Urine Glucose (UA) Negative (NEGATIVE) Urine Ketones Negative (NEGATIVE) Urine Blood 5+ (NEGATIVE) H Urine Nitrite Negative (NEGATIVE) Urine Bilirubin Negative (NEGATIVE) Urine Urobilinogen Normal MG/DL (0.0-1.0) Urine Leukocyte Esterase 3+ (NEGATIVE) H Urine RBC Tntc /HPF (0 - 0) H Urine WBC 30-40 /HPF (0 - 0) H Urine Squamous Epithelial Cells Many /LPF (NONE/OCC) H Urine Bacteria Many /HPF (NONE) H Test 12/23/18 17:37 12/24/18 04:00 12/24/18 04:54 Arterial Blood pH 7.276 (7.350-7.450) 7.401 (7.350-7.450) Arterial Blood Partial Pressure CO2 93.2 mmHg (35.0-45.0) *H 58.9 mmHg (35.0-45.0) *H Arterial Blood Partial Pressure O2 53.9 mmHg (75.0-100.0) L 60.8 mmHg (75.0-100.0) L Arterial Blood HCO3 42.4 mmol/L (22.0-26.0) *H 35.7 mmol/L (22.0-26.0) H Arterial Blood Oxygen Saturation 87.5 % (95-100) *L 92.6 % (95-100) L Arterial Blood Base Excess 13.0 (-2-2) *H 9.5 (-2-2) *H Samuel Test Positive Positive White Blood Count 11.4 K/UL (4.8-10.8) H Red Blood Count 2.78 M/UL (4.70-6.10) L Hemoglobin 8.1 G/DL (14.2-18.0) L Hematocrit 27.4 % (42.0-52.0) L Mean Corpuscular Volume 99 FL (80-99) Mean Corpuscular Hemoglobin 29.0 PG (27.0-31.0) Mean Corpuscular Hemoglobin Concent 29.4 G/DL (32.0-36.0) L Red Cell Distribution Width 15.0 % (11.6-14.8) H Platelet Count 206 K/UL (150-450) Mean Platelet Volume 7.4 FL (6.5-10.1) Neutrophils (%) (Auto) % (45.0-75.0) Lymphocytes (%) (Auto) % (20.0-45.0) Monocytes (%) (Auto) % (1.0-10.0) Eosinophils (%) (Auto) % (0.0-3.0) Basophils (%) (Auto) % (0.0-2.0) Neutrophils % (Manual) Pending Lymphocytes % (Manual) Pending Platelet Estimate Pending Platelet Morphology Pending Sodium Level 146 MMOL/L (136-145) H Potassium Level 4.3 MMOL/L (3.5-5.1) Chloride Level 108 MMOL/L (98-107) H Carbon Dioxide Level 36 MMOL/L (21-32) H Anion Gap 2 mmol/L (5-15) L Blood Urea Nitrogen 14 mg/dL (7-18) Creatinine 0.5 MG/DL (0.55-1.30) L Estimat Glomerular Filtration Rate mL/min (>60) Glucose Level 153 MG/DL (74-106) H Calcium Level 7.7 MG/DL (8.5-10.1) L Troponin I 0.005 ng/mL (0.000-0.056) Pro-B-Type Natriuretic Peptide 525 pg/mL (0-125) H Prostate Specific Antigen 0.26 ng/mL (0.13-4.0) Free Prostate Specific Antigen Pending Percent Free Prostate Specific Ag Pending Prostate Specific Antigen Total Pending Thyroid Stimulating Hormone (TSH) 1.936 uiU/mL (0.358-3.740) Cortisol AM Sample Pending Emma Ramesh DO Dec 24, 2018 09:32
[2018-12-24] MEDS: Pantoprazole Inj IVP SCH (09:36)
--- NOTE | 2018-12-24 10:33 | Diagnostic Imaging Report ---
EXAM: XR Chest, 1 View CLINICAL HISTORY: SOB TECHNIQUE: Frontal view of the chest. COMPARISON: Chest radiograph on 12 23 2018 FINDINGS: Hardware: Stable right internal jugular central venous catheter which terminates in the region of the lower SVC. Lungs pleura: Stable. No focal consolidation. Pleural thickening versus small left pleural effusion, stable. Heart mediastinum: Normal. No cardiomegaly. Soft tissues: Unremarkable. Bones: No acute fracture. Degenerative changes of the visualized right acromioclavicular joint. Degenerative changes of the spine. Upper abdomen: Normal. IMPRESSION: 1. Stable small left pleural effusion versus pleural thickening or artifact. No focal consolidation. 2. Stable right internal jugular central venous catheter.
[2018-12-24] MEDS: Acetaminophen 650 MG SUPP RECTAL PRN ×2 (11:05→17:27)
--- NOTE | 2018-12-24 14:22 | Cardiology Report ---
APPROVED REPORT EXAM: Two-dimensional and M-mode echocardiogram with Doppler and color Doppler. INDICATION OTHER M-Mode DIMENSIONS IVSd0.9 (0.7-1.1cm)Left Atrium (MM)3.3 (1.6-4.0cm) LVDd4.8 (3.5-5.6cm)Aortic Root3.5 (2.0-3.7cm) PWd0.8 (0.7-1.1cm)Aortic Cusp Exc.1.6 (1.5-2.0cm) IVSs1.0 cm LVDs3.3 (2.5-4.0cm) PWs0.9 cm Technically difficult study due to pt's resistance . Normal left ventricular chamber size, systolic function and wall motion to extent visualized. Left ventricular ejection fraction estimated to be 60 %. No evidence of left ventricular hypertrophy. No evidence of pericardial effusion. All other cardiac chamber sizes are within normal limits. Focal aortic valve sclerosis with adequate cusp excursion. Thickened mitral valve leaflets with normal excursion. Mitral annulus and aortic root calcification. Normal pulmonic valve structure. Normal tricuspid valve structure. IVC at normal size without physiologic collapse. A color flow and spectral Doppler study was performed and revealed: No aortic insufficiency. Mild mitral regurgitation. Mitral inflow indicates normal left ventricular diastolic function. Trace tricuspid regurgitation. Tricuspid systolic velocities suggests peak right ventricular systolic pressure of 15 mmHg.
--- NOTE | 2018-12-24 14:40 | Consultation ---
History of Present Illness General Date patient seen: Dec 24, 2018 Chief Complaint: Altered Level of Consciousness Present Illness HPI 88-year-old male with reported history of hypertension, hyperlipidemia, CHF, COPD and dementia presents for evaluation of hypotension altered mental status. According to EMS, he was in his usual state of health but was more lethargic and less talkative day of admission. He was checked and noted to have altered nonresponsive. His reported baseline is alert and oriented x2 and conversant. He was not responding to verbal stimuli. He was also found hypotensive with systolics in the 80s. transferred to [facility] [place] for evaluation and admitted to ICU for care and management. afebrile, tachypnic, leukocytosis, abnormal labs, multiple open wounds. surgery called to evaluate and assist with care. patient seen, chart reviewed, patient examined. Allergies: Coded Allergies: DORZOLAMIDE (Unverified Allergy, Unknown, 12/23/18) LISINOPRIL (Unverified Allergy, Unknown, 12/23/18) TIMOLOL (Unverified Allergy, Unknown, 12/23/18) TIOTROPIUM (Unverified Allergy, Unknown, 12/23/18) Medication History Scheduled Albuterol Sulfate* (Albuterol Sulfate Mdi*), 2 PUFF INH Q4H Amlodipine Besylate (Norvasc), 10 MG ORAL DAILY, (Reported) Atenolol* (Tenormin*), 100 MG ORAL DAILY, (Reported) Dorzolamide Hcl* (Trusopt*), 1 DROP BOTH EYES TID, (Reported) Furosemide* (Lasix*), 40 MG ORAL DAILY, (Reported) Losartan/Hydrochlorothiazide (Losartan-Hctz 100-12.5 Mg Tab), 1 TAB ORAL DAILY, (Reported) Tamsulosin HCl (Flomax), 0.4 MG ORAL DAILY, (Reported) Tamsulosin Hcl (Tamsulosin Hcl*), 0.4 MG PO DAILY, (Reported) Travoprost (Travatan Z), 5 ML OP BID, (Reported) Scheduled PRN Acetaminophen* (Tylenol Extra Strength*), 500 MG ORAL Q8H PRN for Prn Headache/ Temp > 101 Ipratropium Samson 0.5MG/2.5ML (Ipratropium Samson 0.5MG/2.5ML), 0.5 MG HHN Q6H PRN for Shortness of Breath, (Reported) Miscellaneous Medications Unable to Obtain Medications (Unable To Obtain Meds), (Reported) Patient History Limited by: medical condition History Provided By: Medical Record, PMD Healthcare decision maker Anika Lopez Resuscitation status Full Code Advanced Directive on File Yes Past Medical/Surgical History Past Medical/Surgical History: (1) shortness of breath (2) Left elbow contusion (3) Respiratory failure (4) Anemia (5) Hypothermia (6) Sepsis (7) UTI (urinary tract infection) (8) COPD with acute exacerbation (9) Hypercapnic respiratory failure Review of Systems ROS Narrative cannot obtain given medical condition Physical Exam General Appearance: mild distress Lines, tubes and drains: other HEENT: atraumatic, other Neck: normal inspection, other Respiratory/Chest: respiratory distress, decreased breath sounds Cardiovascular/Chest: normal peripheral pulses Abdomen: normal bowel sounds, soft, no organomegaly, no mass Extremities: normal inspection, normal capillary refill, other Skin Exam: warm/dry Neurologic: unresponsiveness Last 24 Hour Vital Signs Date Time Temp Pulse Resp B/P (MAP) Pulse Ox O2 Delivery O2 Flow Rate FiO2 12/24/18 14:00 62 18 109/41 (63) 100 12/24/18 13:16 74 31 100 Facial 30 12/24/18 13:00 65 20 103/41 (61) 100 12/24/18 12:00 97.6 76 30 127/68 (87) 100 12/24/18 12:00 75 12/24/18 12:00 30 12/24/18 12:00 Bi-pap 12/24/18 11:00 74 25 145/75 (98) 100 12/24/18 10:54 65 18 99 Facial 30 72 23 99 Bi-Pap 30 12/24/18 10:00 75 29 150/76 (100) 95 12/24/18 09:31 67 35 97 Facial 30 12/24/18 09:00 76 37 160/83 (108) 93 12/24/18 08:00 97.5 62 15 126/58 (80) 100 12/24/18 08:00 30 12/24/18 08:00 Bi-pap 12/24/18 08:00 74 12/24/18 07:13 74 17 100 Facial 30 70 24 100 Bi-Pap 30 12/24/18 07:00 66 16 144/78 (100) 98 12/24/18 06:00 96.4 73 34 140/71 (94) 96 12/24/18 05:10 66 16 115/58 (77) 98 12/24/18 05:00 61 19 107/64 (78) 99 12/24/18 04:57 67 33 95 Facial 30 12/24/18 04:30 69 20 112/64 (80) 97 12/24/18 04:00 40 12/24/18 04:00 Bi-pap 12/24/18 04:00 77 31 124/74 (91) 94 12/24/18 04:00 72 12/24/18 03:30 69 20 118/59 (78) 99 12/24/18 03:06 72 26 95 Bi-Pap 30 30 12/24/18 03:00 69 20 125/58 (80) 100 12/24/18 02:56 74 25 100 Facial 40 Bi-Pap 40 12/24/18 02:30 74 18 133/63 (86) 96 12/24/18 02:15 72 27 131/61 (84) 98 12/24/18 02:00 72 21 132/65 (87) 97 12/24/18 01:45 73 21 132/63 (86) 97 12/24/18 01:30 72 19 124/61 (82) 98 12/24/18 01:15 72 20 119/52 (74) 100 12/24/18 01:00 96.8 70 19 115/50 (71) 99 12/24/18 00:48 73 20 94 Facial 40 12/24/18 00:46 72 19 111/59 (76) 99 12/24/18 00:30 72 16 113/57 (75) 99 12/24/18 00:15 72 18 111/56 (74) 99 12/24/18 00:00 73 12/24/18 00:00 73 20 107/72 (84) 98 12/24/18 00:00 40 12/24/18 00:00 Bi-pap 12/23/18 23:45 73 17 104/53 (70) 97 12/23/18 23:30 72 23 98/53 (68) 95 12/23/18 23:30 104/53 12/23/18 23:15 75 27 96/48 (64) 95 12/23/18 23:00 81 24 100/50 (67) 90 12/23/18 23:00 96/48 12/23/18 22:47 78 32 96 Facial 30 12/23/18 22:30 92/43 12/23/18 22:30 72 19 82/50 (61) 100 12/23/18 22:25 70 18 88/49 (62) 100 12/23/18 22:15 70 15 89/57 (68) 100 12/23/18 22:15 70 15 89/57 (68) 100 12/23/18 22:00 67 17 95/49 (64) 100 12/23/18 22:00 67 17 95/49 (64) 100 12/23/18 21:45 64 22 98/57 (71) 99 12/23/18 21:45 64 22 98/57 (71) 99 12/23/18 21:30 98/57 12/23/18 21:30 63 25 100 12/23/18 21:30 64 27 107/49 (68) 99 12/23/18 21:15 64 27 107/49 (68) 99 12/23/18 21:00 60 23 120/59 (79) 98 12/23/18 21:00 60 23 120/59 (79) 98 12/23/18 20:47 61 25 99/57 (71) 98 12/23/18 20:45 61 25 99/57 (71) 98 12/23/18 20:45 59 26 99 Facial 40 12/23/18 20:35 87/53 12/23/18 20:30 57 29 103/53 (70) 98 12/23/18 20:30 57 29 103/53 (70) 98 12/23/18 20:23 60 24 101/43 (62) 99 12/23/18 20:23 60 24 101/43 (62) 99 12/23/18 20:15 58 24 87/48 (61) 98 12/23/18 20:15 58 24 87/48 (61) 98 12/23/18 20:00 55 24 101/56 (71) 99 12/23/18 20:00 55 24 101/56 (71) 99 12/23/18 19:50 64 28 97/43 (61) 97 12/23/18 19:50 64 28 97/43 (61) 97 12/23/18 19:45 55 24 87/48 (61) 99 12/23/18 19:40 40 12/23/18 19:30 58 17 96/44 (61) 99 12/23/18 19:30 Bi-pap 12/23/18 19:30 58 17 96/44 (61) 99 12/23/18 19:15 58 24 102/44 (63) 95 12/23/18 19:15 58 24 102/44 (63) 95 12/23/18 19:07 57 22 93/41 (58) 95 12/23/18 19:07 57 22 100/40 (60) 95 12/23/18 19:05 58 21 86/35 (52) 94 12/23/18 19:05 58 21 86/35 (52) 94 12/23/18 19:00 58 12/23/18 19:00 60 15 79/34 (49) 98 12/23/18 19:00 95.0 60 15 93/41 (58) 98 12/23/18 18:39 64 32 99 Facial 40 12/23/18 18:30 93.5 62 18 108/52 100 Nasal Cannula 4.0 12/23/18 17:57 61 26 98 Facial 40 12/23/18 17:44 93.5 61 18 110/54 100 Bi-pap 40 12/23/18 17:14 93.5 58 18 98/34 100 Bi-pap 30 12/23/18 16:54 57 24 100 Facial 30 55 23 100 Bi-Pap 30 12/23/18 16:52 2.0 30 12/23/18 16:44 93.5 57 17 105/48 100 Bi-pap 30 12/23/18 16:44 30 12/23/18 16:14 92.5 52 19 112/51 99 Bi-pap 40 12/23/18 15:50 2.0 40 12/23/18 15:45 56 23 99 Facial 40 12/23/18 15:44 58 28 Nasal Cannula 2.0 12/23/18 15:44 92.5 58 28 98/47 94 Nasal Cannula 2.0 12/23/18 15:40 60 30 92 Nasal Cannula 2.0 28 12/23/18 15:13 59 19 89/41 (57) 93 Nasal Cannula 2.0 Intake and Output 12/23/18 12/24/18 19:00 07:00 Intake Total 1473.750 ml Output Total 75 ml 500 ml Balance -75 ml 973.750 ml Intake IV Total 1473.750 ml Output Urine Total 75 ml 500 ml Laboratory Tests Test 12/23/18 15:15 12/23/18 15:25 12/23/18 15:45 12/23/18 16:23 Arterial Blood pH 7.207 (7.350-7.450) 7.215 (7.350-7.450) Arterial Blood Partial Pressure CO2 137.4 mmHg (35.0-45.0) *H 118.6 mmHg (35.0-45.0) *H Arterial Blood Partial Pressure O2 63.5 mmHg (75.0-100.0) L 134.8 mmHg (75.0-100.0) H Arterial Blood HCO3 53.5 mmol/L (22.0-26.0) *H 46.9 mmol/L (22.0-26.0) *H Arterial Blood Oxygen Saturation 90.1 % (95-100) L 98.3 % (95-100) Arterial Blood Base Excess 21.2 (-2-2) *H 15.7 (-2-2) *H Samuel Test Positive Positive White Blood Count 10.8 K/UL (4.8-10.8) Red Blood Count 3.02 M/UL (4.70-6.10) L Hemoglobin 9.0 G/DL (14.2-18.0) L Hematocrit 28.5 % (42.0-52.0) L Mean Corpuscular Volume 94 FL (80-99) Mean Corpuscular Hemoglobin 29.7 PG (27.0-31.0) Mean Corpuscular Hemoglobin Concent 31.5 G/DL (32.0-36.0) L Red Cell Distribution Width 13.7 % (11.6-14.8) Platelet Count 215 K/UL (150-450) Mean Platelet Volume 7.1 FL (6.5-10.1) Neutrophils (%) (Auto) 79.8 % (45.0-75.0) H Lymphocytes (%) (Auto) 9.8 % (20.0-45.0) L Monocytes (%) (Auto) 9.1 % (1.0-10.0) Eosinophils (%) (Auto) 0.5 % (0.0-3.0) Basophils (%) (Auto) 0.9 % (0.0-2.0) Sodium Level 148 MMOL/L (136-145) H Potassium Level 4.3 MMOL/L (3.5-5.1) Chloride Level 105 MMOL/L (98-107) Carbon Dioxide Level > 45 MMOL/L (21-32) *H Blood Urea Nitrogen 18 mg/dL (7-18) Creatinine 0.5 MG/DL (0.55-1.30) L Estimat Glomerular Filtration Rate mL/min (>60) Glucose Level 196 MG/DL (74-106) H Lactic Acid Level 0.80 mmol/L (0.4-2.0) Calcium Level 8.7 MG/DL (8.5-10.1) Phosphorus Level 3.9 MG/DL (2.5-4.9) Magnesium Level 1.9 MG/DL (1.8-2.4) Total Bilirubin 0.3 MG/DL (0.2-1.0) Aspartate Amino Transf (AST/SGOT) 15 U/L (15-37) Alanine Aminotransferase (ALT/SGPT) 20 U/L (12-78) Alkaline Phosphatase 95 U/L (46-116) Total Creatine Kinase 19 U/L (26-308) L Creatine Kinase MB 2.3 NG/ML (0.0-3.6) Creatine Kinase MB Relative Index 12.1 Troponin I 0.000 ng/mL (0.000-0.056) Pro-B-Type Natriuretic Peptide 390 pg/mL (0-125) H Total Protein 6.2 G/DL (6.4-8.2) L Albumin 2.1 G/DL (3.4-5.0) L Globulin 4.1 g/dL Albumin/Globulin Ratio 0.5 (1.0-2.7) L Urine Color Pale yellow Urine Appearance Cloudy Urine pH 5 (4.5-8.0) Urine Specific [place] 1.015 (1.005-1.035) Urine Protein 2+ (NEGATIVE) H Urine Glucose (UA) Negative (NEGATIVE) Urine Ketones Negative (NEGATIVE) Urine Blood 5+ (NEGATIVE) H Urine Nitrite Negative (NEGATIVE) Urine Bilirubin Negative (NEGATIVE) Urine Urobilinogen Normal MG/DL (0.0-1.0) Urine Leukocyte Esterase 3+ (NEGATIVE) H Urine RBC Tntc /HPF (0 - 0) H Urine WBC 30-40 /HPF (0 - 0) H Urine Squamous Epithelial Cells Many /LPF (NONE/OCC) H Urine Bacteria Many /HPF (NONE) H Test 12/23/18 17:37 12/24/18 04:00 12/24/18 04:54 Arterial Blood pH 7.276 (7.350-7.450) 7.401 (7.350-7.450) Arterial Blood Partial Pressure CO2 93.2 mmHg (35.0-45.0) *H 58.9 mmHg (35.0-45.0) *H Arterial Blood Partial Pressure O2 53.9 mmHg (75.0-100.0) L 60.8 mmHg (75.0-100.0) L Arterial Blood HCO3 42.4 mmol/L (22.0-26.0) *H 35.7 mmol/L (22.0-26.0) H Arterial Blood Oxygen Saturation 87.5 % (95-100) *L 92.6 % (95-100) L Arterial Blood Base Excess 13.0 (-2-2) *H 9.5 (-2-2) *H Samuel Test Positive Positive White Blood Count 11.4 K/UL (4.8-10.8) H Red Blood Count 2.78 M/UL (4.70-6.10) L Hemoglobin 8.1 G/DL (14.2-18.0) L Hematocrit 27.4 % (42.0-52.0) L Mean Corpuscular Volume 99 FL (80-99) Mean Corpuscular Hemoglobin 29.0 PG (27.0-31.0) Mean Corpuscular Hemoglobin Concent 29.4 G/DL (32.0-36.0) L Red Cell Distribution Width 15.0 % (11.6-14.8) H Platelet Count 206 K/UL (150-450) Mean Platelet Volume 7.4 FL (6.5-10.1) Neutrophils (%) (Auto) % (45.0-75.0) Lymphocytes (%) (Auto) % (20.0-45.0) Monocytes (%) (Auto) % (1.0-10.0) Eosinophils (%) (Auto) % (0.0-3.0) Basophils (%) (Auto) % (0.0-2.0) Differential Total Cells Counted 100 Neutrophils % (Manual) 94 % (45-75) H Lymphocytes % (Manual) 5 % (20-45) L Monocytes % (Manual) 1 % (1-10) Eosinophils % (Manual) 0 % (0-3) Basophils % (Manual) 0 % (0-2) Band Neutrophils 0 % (0-8) Platelet Estimate Adequate Platelet Morphology Normal Hypochromasia 1+ Anisocytosis 1+ Macrocytosis 1+ Sodium Level 146 MMOL/L (136-145) H Potassium Level 4.3 MMOL/L (3.5-5.1) Chloride Level 108 MMOL/L (98-107) H Carbon Dioxide Level 36 MMOL/L (21-32) H Anion Gap 2 mmol/L (5-15) L Blood Urea Nitrogen 14 mg/dL (7-18) Creatinine 0.5 MG/DL (0.55-1.30) L Estimat Glomerular Filtration Rate mL/min (>60) Glucose Level 153 MG/DL (74-106) H Calcium Level 7.7 MG/DL (8.5-10.1) L Troponin I 0.005 ng/mL (0.000-0.056) Pro-B-Type Natriuretic Peptide 525 pg/mL (0-125) H Prostate Specific Antigen 0.26 ng/mL (0.13-4.0) Free Prostate Specific Antigen Pending Percent Free Prostate Specific Ag Pending Prostate Specific Antigen Total Pending Thyroid Stimulating Hormone (TSH) 1.936 uiU/mL (0.358-3.740) Cortisol AM Sample Pending Microbiology Date/Time Source Procedure Growth Status 12/23/18 15:45 Urine,Clean Catch Urine Culture - Preliminary NO GROWTH Resulted Height (Feet): 5 Height (Inches): 9.00 Weight (Pounds): 114 Medications Current Medications Medications (Trade) Dose Ordered Sig/Katie Route PRN Reason Start Time Stop Time Status Last Admin Dose Admin Acetaminophen (Tylenol) 650 mg Q6HR PRN RECTAL Mild Pain (Pain Scale 1-3) 12/24/18 11:00 01/23/19 10:59 12/24/18 11:05 Albuterol/ Ipratropium (Albuterol/ Ipratropium) 3 ml Q4HRT HHN 12/24/18 03:00 12/29/18 02:59 12/24/18 10:58 Azithromycin 500 mg/Dextrose 275 ml @ 275 mls/hr Q24H IV 12/23/18 21:00 12/30/18 20:59 12/23/18 21:50 Ceftriaxone Sodium 1 gm/ Dextrose 55 ml @ 110 mls/hr Q24H IVPB 12/23/18 22:00 12/30/18 21:59 12/23/18 21:50 Chlorhexidine Gluconate (Radhika-Hex 2%) 1 applic DAILY@2000 TOPIC 12/24/18 20:00 01/23/19 19:59 Methylprednisolone Sodium Succinate (Solu-MEDROL) 40 mg EVERY 8 HOURS IV 12/23/18 22:00 01/22/19 21:59 12/24/18 14:03 Norepinephrine Bitartrate 4 mg/ Dextrose 250 ml @ 0 mls/hr Q24H IV 12/23/18 20:00 01/22/19 19:59 12/23/18 20:35 Pantoprazole (Protonix) 40 mg DAILY IVP 12/24/18 09:00 01/23/19 08:59 12/24/18 09:36 Sodium Chloride 1,000 ml @ 125 mls/hr Q8H IV 12/23/18 21:45 01/22/19 21:44 12/24/18 14:03 Assessment/Plan Problem List: (1) Failure to thrive in adult Assessment & Plan: DAILY ESTIMATED NEEDS: Needs based on Wound healing, Pulmonary, Underweight/ 49.5kg 30-40 kcals/kg 6818-9516 total kcals 1.25-1.8 g protein/kg 62-89 g total protein 25-30 mL/kg 5602-1383 total fluid mLs NUTRITION DIAGNOSIS: Increased kcal/prot needs R/T underweight status, wound healing, severe COPD per MD as evidenced by pt is 73% IBW w/ BMI of 17.0, admitted w/ advanced sacral and rt elbow wounds, unstageable BL heel wounds, pending eval, currently on BIPAP, NPO. CURRENT DIET:NPO PO DIET RECOMMENDATIONS: WHEN SAFE FOR ORAL DIET AND OFF BIPAP -> regular/ texture per CHOCOLATE FINISHER OPERATOR ENTERAL NUTRITION RECOMMENDATIONS: CONSULT RD FOR TF REC IF INDICATED AND PART OF POC ADDITIONAL RECOMMENDATIONS: * Per SNF: HT=67", DK=831fvr (as of 12/21) -> rec calibrated bedscale wt, weekly wt monitoring * CHOCOLATE FINISHER OPERATOR evaluation prior to oral diet * Ensure Enlive TID w/ meals w/ oral diet * Wound healing: when able for oral meds -> add MVI w/ min x 1, Vit C 500mg BID, ZnSO4 220mg QD x 10 days -> Gaetano 1pkt BID ICD Codes: R62.7 - Adult failure to thrive SNOMED: 653757291 (2) Malnutrition ICD Codes: E46 - Unspecified protein-calorie malnutrition SNOMED: 86496486 (3) Decubitus skin ulcer Assessment & Plan: Pt presented on admission with multiple pressure injuries. 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 Base of wound has 95% slough. 5% viable. Bone is palpable. Edges macerated. Non- blanching erythema periwound. No odor noted. Hyperpigmentation with surrounding darker skin tone without induration. Full thickness stage 4 sacral pressure injury with undermining . Base of wound has 60% slough, 40% oscar. Bone is palpable. Small amt brown exudate. Mild odor noted. Periwound darker skin tone noted. (L)7cm x (W)7.3cm x (D)2.5cm, undermining clockwise 8 -3 by 3.8cm @9o'clock. Necrotic area noted to R ischium.Periwound is intact.(L)0.4cm x (W)1.3cm. Stable dry eschar medial/lateral R foot (L)2.2cm x (W)1.5cm. periwound is intact. Black area without induration or fluctuance noted to distal/lateral R foot. (L) 1.5cm x (W)1.8cm. Stable dry eschar dorso/flexor R foot 0.4cm x (W)2.5cm. Unstageable pressure injury R heel. Base of wound is 100% necrotic . Periwound is boggy but no erythema noted (L)6.5cm x (W)7cm. Unstageable pressure injury L heel. Base of wound is 100% necrotic(L)1.5cm x (W) 2.5cm with surrounding pink epithelial bordered by hyperpigmentation(L)4cm x (W) 4.4cm. Tx.Plan: Cleanse Sacral wound with Dakin's 0.125% mike. Loosely pack with Dakin's moistened kerlix. Apply Moisture Barrier Paste periwound. Cover with Optifoam drsg Twice Daily and prn. Cleanse R elbow with Dakin's 0.125% mike. Loosely pack with dakin's moist Kerlix gauze. Apply Moisture Barrier paste periwound.Cover with Optifoam drsg. Twice Daily and prn. Apply Betadine to R and L heels. Cover with Optifoam drsg. Change every 3 days and prn. Apply Betadine to necrotic areas Lateral R foot and dorso /flexor R foot. Cover each wound with Optifoam drsg every 3 days and prn. Apply Moisture Barrier paste to R ischium. Cover with Optifoam drsg. Change every 3 days and prn. Air Fluidized mattress. Reposition at least every 2hours or as tolerated. Off-load heels with pillow. Elevate R and L elbows with pillow. ICD Codes: L89.90 - Pressure ulcer of unspecified site, unspecified stage SNOMED: 554978379 (4) Sepsis Assessment & Plan: leukocytosis tachypnea CXR noted labs noted requiring BIPAP for support cont abx IV fluids feeds and nutritional support will follow with recs ICD Codes: A41.9 - Sepsis, unspecified organism SNOMED: 77120767 (5) Respiratory failure ICD Codes: J96.90 - Respiratory failure, unspecified, unspecified whether with hypoxia or hypercapnia SNOMED: 376246243 (6) Left elbow contusion ICD Codes: S50.02XA - Contusion of left elbow, initial encounter SNOMED: 52760006 Sher Keene Dec 24, 2018 14:40
[2018-12-24] MEDS: Dyna-Hex 2% Top Sol 2oz TOPIC SCH (19:39)
[2018-12-24] MEDS: Azithromycin 500 MG in D5W 275 ML IV SCH (21:02)
[2018-12-24] MEDS: cefTRIAXone 1gm/D5W 55ml IVPB SCH ×2 (22:02)
[2018-12-25] VITALS (24 sets, daily range): BP systolic 118–163; BP diastolic 49–115
[2018-12-25] MEDS: Albuterol/Ipratropium 3ml neb HHN SCH ×6 (03:34→23:05)
[2018-12-25 04:43] LABS: HEMATOCRIT 29.3 % (42.0-52.0); MEAN CORPUSCULAR VOLUME 95 FL (80-99); PLATELET COUNT 265 K/UL (150-450); RED BLOOD COUNT 3.09 M/UL (4.70-6.10); RED CELL DISTRIBUTION WIDTH 14.9 % (11.6-14.8); WHITE BLOOD COUNT 12.9 K/UL (4.8-10.8)
[2018-12-25 05:20] LABS: ANION GAP 5 mmol/L (5-15); BLOOD UREA NITROGEN 16 mg/dL (7-18); CALCIUM 7.9 MG/DL (8.5-10.1); CARBON DIOXIDE 34 MMOL/L (21-32); CHLORIDE 103 MMOL/L (98-107); CREATININE 0.6 MG/DL (0.55-1.30); POTASSIUM 3.6 MMOL/L (3.5-5.1); SODIUM 142 MMOL/L (136-145)
[2018-12-25] MEDS: Solu-MEDROL 40mg Inj IV SCH ×3 (05:49→22:08)
[2018-12-25] MEDS ORDERED: Dakin's 0.125% Soln (Quarter Strength) 16oz TOPIC SCH (09:00)
[2018-12-25] MEDS: Pantoprazole Inj IVP SCH (09:06)
--- NOTE | 2018-12-25 10:33 | Diagnostic Imaging Report ---
EXAM: XR Chest, 1 View CLINICAL HISTORY: CALC TECHNIQUE: Frontal view of the chest. COMPARISON: Chest radiograph on 12 24 2018 FINDINGS: Hardware: Right internal jugular central venous catheter terminates near the junction of the SVC and right atrium. Lungs pleura: Basilar opacities may represent small bilateral pleural effusions with atelectasis. Heart mediastinum: Normal. No cardiomegaly. Soft tissues: Unremarkable. Bones: No acute fracture. Degenerative changes of visualized right acromioclavicular joint Upper abdomen: Normal. IMPRESSION: 1. Basilar opacities may represent small bilateral pleural effusions with atelectasis. 2. Stable right internal jugular central venous catheter.
[2018-12-25] MEDS ORDERED: 1/2 NS 1000ml IV ONE (11:03)
[2018-12-25] MEDS ORDERED: NS 275ml ONE (11:03)
[2018-12-25] MEDS ORDERED: Tubing IV Secondary IV ONE (11:03)
--- NOTE | 2018-12-25 11:12 | Surgery Progress Note ---
Surgery Progress Note Subjective Additional Comments no acute events labs noted exam unchanged drssing changes going well Objective Last 24 Hour Vital Signs Date Time Temp Pulse Resp B/P (MAP) Pulse Ox O2 Delivery O2 Flow Rate FiO2 12/25/18 11:00 87 28 137/94 (108) 100 12/25/18 10:46 85 29 100 Nasal Cannula 1.0 24 91 27 97 12/25/18 10:36 91 27 97 1.0 24 12/25/18 10:00 79 30 118/77 (91) 99 12/25/18 09:10 93 27 97 1.0 24 12/25/18 09:00 87 31 134/63 (86) 97 12/25/18 08:00 94 12/25/18 08:00 97.7 91 32 147/115 (126) 98 12/25/18 08:00 Nasal Cannula 1.0 12/25/18 08:00 1.0 12/25/18 07:00 95 25 143/75 (97) 100 12/25/18 06:54 78 25 100 12/25/18 06:44 93 23 99 1.0 24 12/25/18 06:44 99 Nasal Cannula 1.0 24 12/25/18 06:00 88 32 163/70 (101) 99 12/25/18 05:08 88 26 98 1.0 25 12/25/18 05:00 92 38 135/60 (85) 96 12/25/18 04:00 Nasal Cannula 1.0 12/25/18 04:00 1.0 12/25/18 04:00 97.7 93 31 121/62 (81) 98 12/25/18 03:32 97 Nasal Cannula 1.0 25 12/25/18 03:30 89 12/25/18 03:27 93 26 97 Room Air 95 24 99 12/25/18 03:00 79 26 133/97 (109) 100 12/25/18 02:00 82 33 124/83 (97) 99 12/25/18 01:13 76 23 99 Facial 25 12/25/18 01:00 82 28 150/49 (82) 99 12/25/18 00:00 97.9 82 28 137/78 (97) 98 12/25/18 00:00 30 12/25/18 00:00 Bi-pap 12/24/18 23:22 75 12/24/18 23:06 70 25 99 Facial 30 77 24 100 Bi-Pap 30 12/24/18 23:00 83 25 133/69 (90) 99 12/24/18 22:00 79 21 108/54 (72) 99 12/24/18 21:11 77 24 99 Facial 30 12/24/18 21:00 78 26 124/81 (95) 98 12/24/18 20:00 97.7 72 21 134/98 (110) 100 12/24/18 20:00 Bi-pap 12/24/18 20:00 124/81 12/24/18 20:00 30 12/24/18 19:14 85 29 100 Facial 30 78 21 100 Bi-Pap 30 12/24/18 19:08 67 12/24/18 19:00 81 21 141/70 (93) 100 12/24/18 18:00 82 32 134/77 (96) 97 12/24/18 17:12 67 17 100 Facial 30 12/24/18 17:00 69 20 92/59 (70) 100 12/24/18 16:00 Bi-pap 12/24/18 16:00 30 12/24/18 16:00 97.6 77 29 135/76 (95) 100 12/24/18 16:00 61 12/24/18 15:12 74 28 100 Facial 30 78 28 99 Bi-Pap 30 12/24/18 15:00 68 26 116/73 (87) 100 12/24/18 14:00 62 18 109/41 (63) 100 12/24/18 13:16 74 31 100 Facial 30 12/24/18 13:00 65 20 103/41 (61) 100 12/24/18 12:00 97.6 76 30 127/68 (87) 100 12/24/18 12:00 75 12/24/18 12:00 30 12/24/18 12:00 Bi-pap I&O Intake and Output 12/24/18 12/25/18 18:59 06:59 Intake Total 1500 ml 1830 ml Output Total 555 ml 540 ml Balance 945 ml 1290 ml Intake IV Total 1500 ml 1830 ml Output Urine Total 555 ml 540 ml Dressing: saturated Wound: other Drains: other Cardiovascular: RSR Respiratory: decreased breath sounds Abdomen: soft, decreased bowel sounds Extremities: no cyanosis, other Laboratory Tests Test 12/25/18 04:30 12/25/18 07:35 White Blood Count 12.9 K/UL (4.8-10.8) H Red Blood Count 3.09 M/UL (4.70-6.10) L Hemoglobin 9.0 G/DL (14.2-18.0) L Hematocrit 29.3 % (42.0-52.0) L Mean Corpuscular Volume 95 FL (80-99) Mean Corpuscular Hemoglobin 29.1 PG (27.0-31.0) Mean Corpuscular Hemoglobin Concent 30.6 G/DL (32.0-36.0) L Red Cell Distribution Width 14.9 % (11.6-14.8) H Platelet Count 265 K/UL (150-450) Mean Platelet Volume 7.5 FL (6.5-10.1) Neutrophils (%) (Auto) % (45.0-75.0) Lymphocytes (%) (Auto) % (20.0-45.0) Monocytes (%) (Auto) % (1.0-10.0) Eosinophils (%) (Auto) % (0.0-3.0) Basophils (%) (Auto) % (0.0-2.0) Differential Total Cells Counted 100 Neutrophils % (Manual) 95 % (45-75) H Lymphocytes % (Manual) 2 % (20-45) L Monocytes % (Manual) 2 % (1-10) Eosinophils % (Manual) 0 % (0-3) Basophils % (Manual) 0 % (0-2) Band Neutrophils 1 % (0-8) Platelet Estimate Adequate Platelet Morphology Normal Hypochromasia 1+ Anisocytosis 1+ Sodium Level 142 MMOL/L (136-145) Potassium Level 3.6 MMOL/L (3.5-5.1) Chloride Level 103 MMOL/L (98-107) Carbon Dioxide Level 34 MMOL/L (21-32) H Anion Gap 5 mmol/L (5-15) Blood Urea Nitrogen 16 mg/dL (7-18) Creatinine 0.6 MG/DL (0.55-1.30) Estimat Glomerular Filtration Rate mL/min (>60) Glucose Level 148 MG/DL (74-106) H Calcium Level 7.9 MG/DL (8.5-10.1) L Magnesium Level 1.6 MG/DL (1.8-2.4) L Pro-B-Type Natriuretic Peptide 504 pg/mL (0-125) H Arterial Blood pH 7.401 (7.350-7.450) Arterial Blood Partial Pressure CO2 51.6 mmHg (35.0-45.0) H Arterial Blood Partial Pressure O2 67.8 mmHg (75.0-100.0) L Arterial Blood HCO3 31.3 mmol/L (22.0-26.0) H Arterial Blood Oxygen Saturation 93.2 % (95-100) L Arterial Blood Base Excess 5.7 (-2-2) H Samuel Test Positive Plan Problems: (1) Failure to thrive in adult Assessment & Plan: DAILY ESTIMATED NEEDS: Needs based on Wound healing, Pulmonary, Underweight/ 49.5kg 30-40 kcals/kg 4912-7729 total kcals 1.25-1.8 g protein/kg 62-89 g total protein 25-30 mL/kg 1833-4988 total fluid mLs NUTRITION DIAGNOSIS: Increased kcal/prot needs R/T underweight status, wound healing, severe COPD per MD as evidenced by pt is 73% IBW w/ BMI of 17.0, admitted w/ advanced sacral and rt elbow wounds, unstageable BL heel wounds, pending eval, currently on BIPAP, NPO. CURRENT DIET:NPO PO DIET RECOMMENDATIONS: WHEN SAFE FOR ORAL DIET AND OFF BIPAP -> regular/ texture per POULTRY EVISCERATOR ENTERAL NUTRITION RECOMMENDATIONS: CONSULT RD FOR TF REC IF INDICATED AND PART OF POC ADDITIONAL RECOMMENDATIONS: * Per SNF: HT=67", JK=[id number] (as of 12/21) -> rec calibrated bedscale wt, weekly wt monitoring * POULTRY EVISCERATOR evaluation prior to oral diet * Ensure Enlive TID w/ meals w/ oral diet * Wound healing: when able for oral meds -> add MVI w/ min x 1, Vit C 500mg BID, ZnSO4 220mg QD x 10 days -> Gaetano 1pkt BID (2) Malnutrition (3) Decubitus skin ulcer Assessment & Plan: Pt presented on admission with multiple pressure injuries. 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 Base of wound has 95% slough. 5% viable. Bone is palpable. Edges macerated. Non- blanching erythema periwound. No odor noted. Hyperpigmentation with surrounding darker skin tone without induration. Full thickness stage 4 sacral pressure injury with undermining . Base of wound has 60% slough, 40% oscar. Bone is palpable. Small amt brown exudate. Mild odor noted. Periwound darker skin tone noted. (L)7cm x (W)7.3cm x (D)2.5cm, undermining clockwise 8 -3 by 3.8cm @9o'clock. Necrotic area noted to R ischium.Periwound is intact.(L)0.4cm x (W)1.3cm. Stable dry eschar medial/lateral R foot (L)2.2cm x (W)1.5cm. periwound is intact. Black area without induration or fluctuance noted to distal/lateral R foot. (L) 1.5cm x (W)1.8cm. Stable dry eschar dorso/flexor R foot 0.4cm x (W)2.5cm. Unstageable pressure injury R heel. Base of wound is 100% necrotic . Periwound is boggy but no erythema noted (L)6.5cm x (W)7cm. Unstageable pressure injury L heel. Base of wound is 100% necrotic(L)1.5cm x (W) 2.5cm with surrounding pink epithelial bordered by hyperpigmentation(L)4cm x (W) 4.4cm. Tx.Plan: Cleanse Sacral wound with Dakin's 0.125% mike. Loosely pack with Dakin's moistened kerlix. Apply Moisture Barrier Paste periwound. Cover with Optifoam drsg Twice Daily and prn. Cleanse R elbow with Dakin's 0.125% mike. Loosely pack with dakin's moist Kerlix gauze. Apply Moisture Barrier paste periwound.Cover with Optifoam drsg. Twice Daily and prn. Apply Betadine to R and L heels. Cover with Optifoam drsg. Change every 3 days and prn. Apply Betadine to necrotic areas Lateral R foot and dorso /flexor R foot. Cover each wound with Optifoam drsg every 3 days and prn. Apply Moisture Barrier paste to R ischium. Cover with Optifoam drsg. Change every 3 days and prn. Air Fluidized mattress. Reposition at least every 2hours or as tolerated. Off-load heels with pillow. Elevate R and L elbows with pillow. (4) Sepsis Assessment & Plan: leukocytosis tachypnea CXR noted labs noted requiring BIPAP for support cont abx IV fluids feeds and nutritional support will follow with recs (5) Respiratory failure (6) Left elbow contusion Sher Keene Dec 25, 2018 11:12
[2018-12-25] MEDS: Dakin's 0.125% Soln (Quarter Strength) 16oz TOPIC SCH (13:34)
--- NOTE | 2018-12-25 15:04 | Pulmonolgy Critical Care Note ---
Critical Care - Asmt/Plan Assessment/Plan: 1. Acute on chronic respiratory failure. 2. 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 3. Cachexia and malnutrition. 4. Atherosclerotic aortic and cardiac disease. 5. History of hypertension, now hypotensive. 6. Urinary tract infection. 7. Diastolic heart failure. 8. Glaucoma. 9. Prostate hypertrophy. 10. Anemia. bipap qhs prn distress bedside swallow pressors if map less than65 wound care nebs and suctrino NPO IVf abx reduce steroids in am labs in am Prophylaxis: Protonix Disposition: keep in ICU Time Spent (Minutes): 40 Notes Reviewed: cardio Discussed with: nurses Critical Care - Objective Last 24 Hour Vital Signs Date Time Temp Pulse Resp B/P (MAP) Pulse Ox O2 Delivery O2 Flow Rate FiO2 12/25/18 14:53 97 20 100 Nasal Cannula 1.0 24 86 26 96 12/25/18 14:00 89 32 153/71 (98) 98 12/25/18 13:00 90 36 137/68 (91) 98 12/25/18 12:30 99 22 98 12/25/18 12:00 Nasal Cannula 1.0 12/25/18 12:00 1.0 12/25/18 12:00 97.7 94 32 141/61 (87) 98 12/25/18 11:27 99 12/25/18 11:00 87 28 137/94 (108) 100 12/25/18 10:46 85 29 100 Nasal Cannula 1.0 24 91 27 97 12/25/18 10:36 91 27 97 1.0 24 12/25/18 10:00 79 30 118/77 (91) 99 12/25/18 09:10 93 27 97 1.0 24 12/25/18 09:00 87 31 134/63 (86) 97 12/25/18 08:00 94 12/25/18 08:00 97.7 91 32 147/115 (126) 98 12/25/18 08:00 Nasal Cannula 1.0 12/25/18 08:00 1.0 12/25/18 07:00 95 25 143/75 (97) 100 12/25/18 06:54 78 25 100 12/25/18 06:44 93 23 99 1.0 24 12/25/18 06:44 99 Nasal Cannula 1.0 24 12/25/18 06:00 88 32 163/70 (101) 99 12/25/18 05:08 88 26 98 1.0 25 12/25/18 05:00 92 38 135/60 (85) 96 12/25/18 04:00 Nasal Cannula 1.0 12/25/18 04:00 1.0 12/25/18 04:00 97.7 93 31 121/62 (81) 98 12/25/18 03:32 97 Nasal Cannula 1.0 25 12/25/18 03:30 89 12/25/18 03:27 93 26 97 Room Air 95 24 99 12/25/18 03:00 79 26 133/97 (109) 100 12/25/18 02:00 82 33 124/83 (97) 99 12/25/18 01:13 76 23 99 Facial 25 12/25/18 01:00 82 28 150/49 (82) 99 12/25/18 00:00 97.9 82 28 137/78 (97) 98 12/25/18 00:00 30 12/25/18 00:00 Bi-pap 12/24/18 23:22 75 12/24/18 23:06 70 25 99 Facial 30 77 24 100 Bi-Pap 30 12/24/18 23:00 83 25 133/69 (90) 99 12/24/18 22:00 79 21 108/54 (72) 99 12/24/18 21:11 77 24 99 Facial 30 12/24/18 21:00 78 26 124/81 (95) 98 12/24/18 20:00 97.7 72 21 134/98 (110) 100 12/24/18 20:00 Bi-pap 12/24/18 20:00 124/81 12/24/18 20:00 30 12/24/18 19:14 85 29 100 Facial 30 78 21 100 Bi-Pap 30 12/24/18 19:08 67 12/24/18 19:00 81 21 141/70 (93) 100 12/24/18 18:00 82 32 134/77 (96) 97 12/24/18 17:12 67 17 100 Facial 30 12/24/18 17:00 69 20 92/59 (70) 100 12/24/18 16:00 Bi-pap 12/24/18 16:00 30 12/24/18 16:00 97.6 77 29 135/76 (95) 100 12/24/18 16:00 61 12/24/18 15:12 74 28 100 Facial 30 78 28 99 Bi-Pap 30 Status: awake Lungs: rales Heart: HR/BP stable Abdomen: soft, non-tender Extremities: edema Micro: Microbiology Date/Time Source Procedure Growth Status 12/23/18 13:25 Blood Blood Culture - Preliminary NO GROWTH AFTER 24 HOURS Resulted 12/23/18 13:10 Blood Blood Culture - Preliminary NO GROWTH AFTER 24 HOURS Resulted 12/23/18 15:45 Urine,Clean Catch Urine Culture - Preliminary NO GROWTH AFTER 24 HOURS Resulted 12/25/18 05:00 Rectum Received Critical Care - Subjective ROS Limited/Unobtainable: Yes Condition: improving EKG Rhythm: Sinus Rhythm FI02: 24 Vent Support Mode: BiLevel Sputum Amount: None I&O: Intake and Output 12/24/18 12/25/18 18:59 06:59 Intake Total 1500 ml 1830 ml Output Total 555 ml 540 ml Balance 945 ml 1290 ml Intake IV Total 1500 ml 1830 ml Output Urine Total 555 ml 540 ml Subjective: off bipap since 3 am pressors stopped yesterday awake npo on ivf abx steroid adn nebs abg better ua positive CXR: IMPRESSION: 1. Basilar opacities may represent small bilateral pleural effusions with atelectasis. 2. Stable right internal jugular central venous catheter. Labs: Microbiology Date/Time Source Procedure Growth Status 12/23/18 13:25 Blood Blood Culture - Preliminary NO GROWTH AFTER 24 HOURS Resulted 12/23/18 13:10 Blood Blood Culture - Preliminary NO GROWTH AFTER 24 HOURS Resulted 12/23/18 15:45 Urine,Clean Catch Urine Culture - Preliminary NO GROWTH AFTER 24 HOURS Resulted 12/25/18 05:00 Rectum Received Current Medications Medications (Trade) Dose Ordered Sig/Katie Route PRN Reason Start Time Stop Time Status Last Admin Dose Admin Acetaminophen (Tylenol) 650 mg Q6HR PRN RECTAL Mild Pain (Pain Scale 1-3) 12/24/18 11:00 01/23/19 10:59 12/24/18 17:27 Albuterol/ Ipratropium (Albuterol/ Ipratropium) 3 ml Q4HRT HHN 12/24/18 03:00 12/29/18 02:59 12/25/18 14:43 Azithromycin 500 mg/Dextrose 275 ml @ 275 mls/hr Q24H IV 12/23/18 21:00 12/30/18 20:59 12/24/18 21:02 Ceftriaxone Sodium 1 gm/ Dextrose 55 ml @ 110 mls/hr Q24H IVPB 12/23/18 22:00 12/30/18 21:59 12/24/18 22:02 Chlorhexidine Gluconate (Radhika-Hex 2%) 1 applic DAILY@2000 TOPIC 12/24/18 20:00 01/23/19 19:59 12/24/18 19:39 Methylprednisolone Sodium Succinate (Solu-MEDROL) 40 mg EVERY 8 HOURS IV 12/23/18 22:00 01/22/19 21:59 12/25/18 14:48 Norepinephrine Bitartrate 4 mg/ Dextrose 250 ml @ 0 mls/hr Q24H IV 12/23/18 20:00 01/22/19 19:59 12/23/18 20:35 Pantoprazole (Protonix) 40 mg DAILY IVP 12/24/18 09:00 01/23/19 08:59 12/25/18 09:06 Sodium Hypochlorite (Dakin's Quarter Strength) 1 applic DAILY TOPIC 12/25/18 11:15 01/24/19 11:14 12/25/18 13:34 Sodium Chloride 1,000 ml @ 125 mls/hr Q8H IV 12/23/18 21:45 01/22/19 21:44 12/25/18 13:34 Laboratory Tests Test 12/25/18 04:30 12/25/18 07:35 White Blood Count 12.9 K/UL (4.8-10.8) H Red Blood Count 3.09 M/UL (4.70-6.10) L Hemoglobin 9.0 G/DL (14.2-18.0) L Hematocrit 29.3 % (42.0-52.0) L Mean Corpuscular Volume 95 FL (80-99) Mean Corpuscular Hemoglobin 29.1 PG (27.0-31.0) Mean Corpuscular Hemoglobin Concent 30.6 G/DL (32.0-36.0) L Red Cell Distribution Width 14.9 % (11.6-14.8) H Platelet Count 265 K/UL (150-450) Mean Platelet Volume 7.5 FL (6.5-10.1) Neutrophils (%) (Auto) % (45.0-75.0) Lymphocytes (%) (Auto) % (20.0-45.0) Monocytes (%) (Auto) % (1.0-10.0) Eosinophils (%) (Auto) % (0.0-3.0) Basophils (%) (Auto) % (0.0-2.0) Differential Total Cells Counted 100 Neutrophils % (Manual) 95 % (45-75) H Lymphocytes % (Manual) 2 % (20-45) L Monocytes % (Manual) 2 % (1-10) Eosinophils % (Manual) 0 % (0-3) Basophils % (Manual) 0 % (0-2) Band Neutrophils 1 % (0-8) Platelet Estimate Adequate Platelet Morphology Normal Hypochromasia 1+ Anisocytosis 1+ Sodium Level 142 MMOL/L (136-145) Potassium Level 3.6 MMOL/L (3.5-5.1) Chloride Level 103 MMOL/L (98-107) Carbon Dioxide Level 34 MMOL/L (21-32) H Anion Gap 5 mmol/L (5-15) Blood Urea Nitrogen 16 mg/dL (7-18) Creatinine 0.6 MG/DL (0.55-1.30) Estimat Glomerular Filtration Rate mL/min (>60) Glucose Level 148 MG/DL (74-106) H Calcium Level 7.9 MG/DL (8.5-10.1) L Magnesium Level 1.6 MG/DL (1.8-2.4) L Pro-B-Type Natriuretic Peptide 504 pg/mL (0-125) H Arterial Blood pH 7.401 (7.350-7.450) Arterial Blood Partial Pressure CO2 51.6 mmHg (35.0-45.0) H Arterial Blood Partial Pressure O2 67.8 mmHg (75.0-100.0) L Arterial Blood HCO3 31.3 mmol/L (22.0-26.0) H Arterial Blood Oxygen Saturation 93.2 % (95-100) L Arterial Blood Base Excess 5.7 (-2-2) H Samuel Test Positive Emma Ramesh DO Dec 25, 2018 15:04
[2018-12-25] MEDS ORDERED: FUROSEMIDE20 M1 ORAL (18:24)
[2018-12-25] MEDS ORDERED: ADVAIR HFA 115-12 GM INH (18:24)
[2018-12-25] MEDS ORDERED: FERROUS SULFAT325 MG ORAL (18:24)
[2018-12-25] MEDS ORDERED: DOCUSATE SODIU100 MG ORAL (18:24)
[2018-12-25] MEDS ORDERED: CATAPRES0.1 MG ORAL (18:24)
[2018-12-25] MEDS ORDERED: AMLODIPINE BESYL5 MG ORAL (18:24)
[2018-12-25] MEDS ORDERED: ACETAMINOPHEN325 M1 ORAL ×2 (18:24)
[2018-12-25] MEDS ORDERED: GUAIFENESIN-DM 15 ML PO (18:24)
[2018-12-25] MEDS ORDERED: ACETAMINOPHEN500 M5 ORAL (18:24)
[2018-12-25] MEDS ORDERED: LOSARTAN POTAS100 MG ORAL (18:24)
[2018-12-25] MEDS ORDERED: FLEET ENEMA133 ML RECTAL (18:24)
[2018-12-25] MEDS ORDERED: MIRTAZAPINE15 M3 ORAL (18:24)
[2018-12-25] MEDS ORDERED: NORCO 5-325 TA1 EACH ORAL (18:24)
[2018-12-25] MEDS ORDERED: DUONEB 0.5-3(2.53 ML HHN (18:24)
[2018-12-25] MEDS ORDERED: MULTIVITAMINS1 EAC2 ORAL (18:24)
[2018-12-25] MEDS: Dyna-Hex 2% Top Sol 2oz TOPIC SCH (20:16)
[2018-12-25] MEDS: Azithromycin 500 MG in D5W 275 ML IV SCH (20:47)
[2018-12-25] MEDS: cefTRIAXone 1gm/D5W 55ml IVPB SCH ×2 (22:09)
[2018-12-26] VITALS (20 sets, daily range): BP systolic 109–164; BP diastolic 41–85
--- NOTE | 2018-12-26 02:15 | Progress Note ---
DATE: 12/24/2018 CARDIOLOGY PROGRESS NOTE SUBJECTIVE: The patient remains on BiPAP support. Monitored rhythm sinus and sinus tachycardia. OBJECTIVE: VITAL SIGNS: Blood pressure 126/58, pulse 62, respiratory rate 15, and afebrile. LUNGS: Some accessory muscle use. Bilateral rhonchi. CARDIAC: Regular rhythm and rate. Normal S1 and S2. ABDOMEN: Soft. EXTREMITIES: Trace edema. LABORATORY DATA: White count 12.9 and hemoglobin 9. Sodium 142, potassium 3.6, bicarb 34, BUN 16, and creatinine 0.6. Magnesium 1.6. Glucose 148. Pro-natriuretic peptide 504. IMPRESSION: 1. Acute on chronic respiratory failure. 2. Chronic obstructive pulmonary disease exacerbation. 3. Hypomagnesemia. 4. Hypertension. 5. Recovered shock. 6. Atherosclerotic aortic and cardiovascular disease. 7. Anemia of chronic disease. PLAN: 1. BiPAP support. 2. Bronchodilators steroids. 3. Monitor volume status and cardiorenal parameters. 4. Diuresis based on clinical parameters. 5. IV magnesium replacement. 6. Consider NG-tube feedings and tapering off IV fluids. 7. Tapering off pressors. Cody Melendez M.D. DR: VERO JOB#: [id number] CC:
--- NOTE | 2018-12-26 02:45 | Progress Note ---
DATE: 12/25/2018 CARDIOLOGY PROGRESS NOTE SUBJECTIVE: The patient remains on BiPAP support at night. Pressors have been tapered off. He remains on steroids and bronchodilators. OBJECTIVE: VITAL SIGNS: Blood pressure 137/68, heart rate , respiratory rate 22 to 36, and afebrile. LUNGS: Diminished breath sounds. Few rhonchi. HEART: Regular rhythm and rate. Normal S1 and S2 with a fourth heart sound. ABDOMEN: Soft. EXTREMITIES: No edema. LABORATORY DATA: Reviewed. IMPRESSION: 1. Acute on chronic respiratory failure. 2. Chronic obstructive pulmonary disease exacerbation. 3. Recovered shock. 4. Rehydrated aspiration risk. 5. Chronic diastolic congestive heart failure. 6. Acute myocardial ischemia. PLAN: 1. Respiratory hygiene. 2. Bronchodilator. 3. Tapered steroids. 4. Empiric antimicrobials. 5. Nutrition by feeding tube. Pending swallow evaluation. 6. Vent taper off IV fluids. 7. Presently off pressors. Cody Melendez M.D. DR: STAN JOB#: [id number] CC:
[2018-12-26] MEDS: Albuterol/Ipratropium 3ml neb HHN SCH ×6 (03:46→23:47)
[2018-12-26 05:14] LABS: HEMATOCRIT 27.6 % (42.0-52.0); HEMOGLOBIN 8.9 G/DL (14.2-18.0); MEAN CORPUSCULAR VOLUME 91 FL (80-99); PLATELET COUNT 211 K/UL (150-450); RED BLOOD COUNT 3.03 M/UL (4.70-6.10); RED CELL DISTRIBUTION WIDTH 13.3 % (11.6-14.8); WHITE BLOOD COUNT 8.9 K/UL (4.8-10.8)
[2018-12-26] MEDS: Solu-MEDROL 40mg Inj IV SCH ×2 (06:04→18:15)
[2018-12-26] MEDS: Dakin's 0.125% Soln (Quarter Strength) 16oz TOPIC SCH (08:48)
[2018-12-26] MEDS: Pantoprazole Inj IVP SCH (08:48)
[2018-12-26 10:09] LABS: ALANINE AMINOTRANSFERASE 22 U/L (12-78); ALBUMIN 2.4 G/DL (3.4-5.0); ALBUMIN/GLOBULIN RATIO 0.6 (1.0-2.7); ALKALINE PHOSPHATASE 80 U/L (46-116); ANION GAP 3 mmol/L (5-15); ASPARTATE AMINO TRANSFERASE 22 U/L (15-37); BILIRUBIN,TOTAL 0.3 MG/DL (0.2-1.0); BLOOD UREA NITROGEN 14 mg/dL (7-18); CALCIUM 8.3 MG/DL (8.5-10.1); CARBON DIOXIDE 36 MMOL/L (21-32); CHLORIDE 103 MMOL/L (98-107); CREATININE 0.5 MG/DL (0.55-1.30); POTASSIUM 3.5 MMOL/L (3.5-5.1); SODIUM 142 MMOL/L (136-145)
--- NOTE | 2018-12-26 10:37 | Surgery Progress Note ---
Surgery Progress Note Subjective Additional Comments no acute events labs improved comfortable left inguinal hernia reducible on NC comfortable Objective Last 24 Hour Vital Signs Date Time Temp Pulse Resp B/P (MAP) Pulse Ox O2 Delivery O2 Flow Rate FiO2 12/26/18 10:00 90 27 148/78 (101) 98 12/26/18 09:00 94 30 163/74 (103) 99 12/26/18 08:00 97 12/26/18 08:00 Nasal Cannula 1.0 12/26/18 08:00 1.0 12/26/18 08:00 97.8 97 30 146/63 (90) 98 12/26/18 07:17 89 24 100 Nasal Cannula 1.0 24 90 28 100 12/26/18 07:17 100 Nasal Cannula 1.0 24 12/26/18 07:00 89 22 162/67 (98) 99 12/26/18 06:00 90 22 154/82 (106) 99 12/26/18 05:00 89 24 153/82 (105) 99 12/26/18 04:00 90 12/26/18 04:00 30 12/26/18 04:00 Nasal Cannula 1.0 12/26/18 04:00 30 12/26/18 04:00 97.8 90 24 153/82 (105) 99 12/26/18 03:46 92 20 100 88 20 98 12/26/18 03:30 90 33 99 Facial 25 12/26/18 03:00 90 23 138/82 (100) 99 12/26/18 02:00 87 23 130/85 (100) 99 12/26/18 01:30 89 32 99 Facial 25 12/26/18 01:00 89 22 140/85 (103) 99 12/26/18 00:00 30 12/26/18 00:00 98.0 93 22 149/85 (106) 99 12/26/18 00:00 Nasal Cannula 1.0 12/25/18 23:05 89 20 100 86 20 99 12/25/18 23:00 93 22 149/85 (106) 99 12/25/18 22:30 84 30 100 Facial 25 12/25/18 22:00 92 27 134/66 (88) 99 12/25/18 21:00 88 28 137/68 (91) 99 12/25/18 20:00 98.0 91 28 148/82 (104) 99 12/25/18 20:00 Nasal Cannula 1.0 12/25/18 20:00 91 12/25/18 20:00 148/82 12/25/18 20:00 30 12/25/18 19:56 97 Nasal Cannula 1.0 24 12/25/18 19:45 98 25 100 Nasal Cannula 1.0 24 102 27 99 12/25/18 19:00 98 30 145/64 (91) 96 12/25/18 18:00 97.5 94 31 156/67 (96) 95 12/25/18 17:00 95 34 141/67 (91) 96 12/25/18 16:00 Nasal Cannula 1.0 12/25/18 16:00 97.9 94 38 137/92 (107) 97 12/25/18 16:00 1.0 12/25/18 16:00 95 12/25/18 15:00 93 24 143/74 (97) 99 12/25/18 14:53 97 20 100 Nasal Cannula 1.0 24 86 26 96 12/25/18 14:00 89 32 153/71 (98) 98 12/25/18 13:00 90 36 137/68 (91) 98 12/25/18 12:30 99 22 98 12/25/18 12:00 Nasal Cannula 1.0 12/25/18 12:00 1.0 12/25/18 12:00 97.7 94 32 141/61 (87) 98 12/25/18 11:27 99 12/25/18 11:00 87 28 137/94 (108) 100 12/25/18 10:46 85 29 100 Nasal Cannula 1.0 24 91 27 97 I&O Intake and Output 12/25/18 12/26/18 19:00 07:00 Intake Total 922.91 ml 1230 ml Output Total 1000 ml 350 ml Balance -77.09 ml 880 ml Intake IV Total 922.91 ml 1230 ml Output Urine Total 1000 ml 350 ml Dressing: other Wound: other Cardiovascular: RSR Respiratory: clear Abdomen: soft, non-tender, present bowel sounds Extremities: no tenderness, no cyanosis, other Laboratory Tests Test 12/26/18 04:30 White Blood Count 8.9 K/UL (4.8-10.8) Red Blood Count 3.03 M/UL (4.70-6.10) L Hemoglobin 8.9 G/DL (14.2-18.0) L Hematocrit 27.6 % (42.0-52.0) L Mean Corpuscular Volume 91 FL (80-99) Mean Corpuscular Hemoglobin 29.5 PG (27.0-31.0) Mean Corpuscular Hemoglobin Concent 32.3 G/DL (32.0-36.0) Red Cell Distribution Width 13.3 % (11.6-14.8) Platelet Count 211 K/UL (150-450) Mean Platelet Volume 7.2 FL (6.5-10.1) Neutrophils (%) (Auto) % (45.0-75.0) Lymphocytes (%) (Auto) % (20.0-45.0) Monocytes (%) (Auto) % (1.0-10.0) Eosinophils (%) (Auto) % (0.0-3.0) Basophils (%) (Auto) % (0.0-2.0) Sodium Level Pending Potassium Level Pending Chloride Level Pending Carbon Dioxide Level Pending Blood Urea Nitrogen Pending Creatinine Pending Estimat Glomerular Filtration Rate Pending Glucose Level Pending Calcium Level Pending Total Bilirubin Pending Aspartate Amino Transf (AST/SGOT) Pending Alanine Aminotransferase (ALT/SGPT) Pending Alkaline Phosphatase Pending Pro-B-Type Natriuretic Peptide 1331 pg/mL (0-125) H Total Protein Pending Albumin Pending Globulin Pending Plan Problems: (1) Failure to thrive in adult Assessment & Plan: DAILY ESTIMATED NEEDS: Needs based on Wound healing, Pulmonary, Underweight/ 49.5kg 30-40 kcals/kg 0333-8043 total kcals 1.25-1.8 g protein/kg 62-89 g total protein 25-30 mL/kg 3830-7263 total fluid mLs NUTRITION DIAGNOSIS: Increased kcal/prot needs R/T underweight status, wound healing, severe COPD per MD as evidenced by pt is 73% IBW w/ BMI of 17.0, admitted w/ advanced sacral and rt elbow wounds, unstageable BL heel wounds, pending eval, currently on BIPAP, NPO. CURRENT DIET:NPO PO DIET RECOMMENDATIONS: WHEN SAFE FOR ORAL DIET AND OFF BIPAP -> regular/ texture per MANAGER SPECIALTY ENTERAL NUTRITION RECOMMENDATIONS: CONSULT RD FOR TF REC IF INDICATED AND PART OF POC ADDITIONAL RECOMMENDATIONS: * Per SNF: HT=67", GX=360taj (as of 12/21) -> rec calibrated bedscale wt, weekly wt monitoring * MANAGER SPECIALTY evaluation prior to oral diet * Ensure Enlive TID w/ meals w/ oral diet * Wound healing: when able for oral meds -> add MVI w/ min x 1, Vit C 500mg BID, ZnSO4 220mg QD x 10 days -> Gaetano 1pkt BID (2) Malnutrition (3) Decubitus skin ulcer Assessment & Plan: Pt presented on admission with multiple pressure injuries. 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 Base of wound has 95% slough. 5% viable. Bone is palpable. Edges macerated. Non- blanching erythema periwound. No odor noted. Hyperpigmentation with surrounding darker skin tone without induration. Full thickness stage 4 sacral pressure injury with undermining . Base of wound has 60% slough, 40% oscar. Bone is palpable. Small amt brown exudate. Mild odor noted. Periwound darker skin tone noted. (L)7cm x (W)7.3cm x (D)2.5cm, undermining clockwise 8 -3 by 3.8cm @9o'clock. Necrotic area noted to R ischium.Periwound is intact.(L)0.4cm x (W)1.3cm. Stable dry eschar medial/lateral R foot (L)2.2cm x (W)1.5cm. periwound is intact. Black area without induration or fluctuance noted to distal/lateral R foot. (L) 1.5cm x (W)1.8cm. Stable dry eschar dorso/flexor R foot 0.4cm x (W)2.5cm. Unstageable pressure injury R heel. Base of wound is 100% necrotic . Periwound is boggy but no erythema noted (L)6.5cm x (W)7cm. Unstageable pressure injury L heel. Base of wound is 100% necrotic(L)1.5cm x (W) 2.5cm with surrounding pink epithelial bordered by hyperpigmentation(L)4cm x (W) 4.4cm. Reducible LIH Tx.Plan: Cleanse Sacral wound with Dakin's 0.125% mike. Loosely pack with Dakin's moistened kerlix. Apply Moisture Barrier Paste periwound. Cover with Optifoam drsg Twice Daily and prn. Cleanse R elbow with Dakin's 0.125% mike. Loosely pack with dakin's moist Kerlix gauze. Apply Moisture Barrier paste periwound.Cover with Optifoam drsg. Twice Daily and prn. Apply Betadine to R and L heels. Cover with Optifoam drsg. Change every 3 days and prn. Apply Betadine to necrotic areas Lateral R foot and dorso /flexor R foot. Cover each wound with Optifoam drsg every 3 days and prn. Apply Moisture Barrier paste to R ischium. Cover with Optifoam drsg. Change every 3 days and prn. Air Fluidized mattress. Reposition at least every 2hours or as tolerated. Off-load heels with pillow. Elevate R and L elbows with pillow. (4) Sepsis Assessment & Plan: leukocytosis resolved tachypnea improved CXR noted labs noted on NS cont abx IV fluids feeds and nutritional support Downgrade will monitor LIH will follow with recs (5) Respiratory failure (6) Left elbow contusion Sher Keene Dec 26, 2018 10:37
--- NOTE | 2018-12-26 12:35 | Pulmonology Progress Note ---
Assessment/Plan Assessment/Plan 1. Acute on chronic respiratory failure. 2. 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 3. Cachexia and malnutrition. 4. Atherosclerotic aortic and cardiac disease. 5. History of hypertension, now hypotensive. 6. Urinary tract infection. 7. Diastolic heart failure. 8. Glaucoma. 9. Prostate hypertrophy. 10. Anemia. much improved ABG baseline start POs taper steroids out of ICU dc plan 2 d Subjective ROS Limited/Unobtainable: Yes Constitutional: Reports: no symptoms Allergies: Coded Allergies: DORZOLAMIDE (Unverified Allergy, Unknown, 12/23/18) LISINOPRIL (Unverified Allergy, Unknown, 12/23/18) TIMOLOL (Unverified Allergy, Unknown, 12/23/18) TIOTROPIUM (Unverified Allergy, Unknown, 12/23/18) Objective Last 24 Hour Vital Signs Date Time Temp Pulse Resp B/P (MAP) Pulse Ox O2 Delivery O2 Flow Rate FiO2 12/26/18 12:00 1.0 12/26/18 12:00 Nasal Cannula 1.0 12/26/18 12:00 93.8 95 28 164/83 (110) 100 12/26/18 11:16 84 21 100 Nasal Cannula 1.0 24 90 28 100 12/26/18 11:00 84 25 146/64 (91) 100 12/26/18 10:00 90 27 148/78 (101) 98 12/26/18 09:00 94 30 163/74 (103) 99 12/26/18 08:00 97 12/26/18 08:00 Nasal Cannula 1.0 12/26/18 08:00 1.0 12/26/18 08:00 97.8 97 30 146/63 (90) 98 12/26/18 07:17 89 24 100 Nasal Cannula 1.0 24 90 28 100 12/26/18 07:17 100 Nasal Cannula 1.0 24 12/26/18 07:00 89 22 162/67 (98) 99 12/26/18 06:00 90 22 154/82 (106) 99 12/26/18 05:00 89 24 153/82 (105) 99 12/26/18 04:00 90 12/26/18 04:00 30 12/26/18 04:00 Nasal Cannula 1.0 12/26/18 04:00 30 12/26/18 04:00 97.8 90 24 153/82 (105) 99 12/26/18 03:46 92 20 100 88 20 98 12/26/18 03:30 90 33 99 Facial 25 12/26/18 03:00 90 23 138/82 (100) 99 12/26/18 02:00 87 23 130/85 (100) 99 12/26/18 01:30 89 32 99 Facial 25 12/26/18 01:00 89 22 140/85 (103) 99 12/26/18 00:00 30 12/26/18 00:00 98.0 93 22 149/85 (106) 99 12/26/18 00:00 Nasal Cannula 1.0 12/25/18 23:05 89 20 100 86 20 99 12/25/18 23:00 93 22 149/85 (106) 99 12/25/18 22:30 84 30 100 Facial 25 12/25/18 22:00 92 27 134/66 (88) 99 12/25/18 21:00 88 28 137/68 (91) 99 12/25/18 20:00 98.0 91 28 148/82 (104) 99 12/25/18 20:00 Nasal Cannula 1.0 12/25/18 20:00 91 12/25/18 20:00 148/82 12/25/18 20:00 30 12/25/18 19:56 97 Nasal Cannula 1.0 24 12/25/18 19:45 98 25 100 Nasal Cannula 1.0 24 102 27 99 12/25/18 19:00 98 30 145/64 (91) 96 12/25/18 18:00 97.5 94 31 156/67 (96) 95 12/25/18 17:00 95 34 141/67 (91) 96 12/25/18 16:00 Nasal Cannula 1.0 12/25/18 16:00 97.9 94 38 137/92 (107) 97 12/25/18 16:00 1.0 12/25/18 16:00 95 12/25/18 15:00 93 24 143/74 (97) 99 12/25/18 14:53 97 20 100 Nasal Cannula 1.0 24 86 26 96 12/25/18 14:00 89 32 153/71 (98) 98 12/25/18 13:00 90 36 137/68 (91) 98 Intake and Output 12/25/18 12/26/18 19:00 07:00 Intake Total 922.91 ml 1230 ml Output Total 1000 ml 350 ml Balance -77.09 ml 880 ml Intake IV Total 922.91 ml 1230 ml Output Urine Total 1000 ml 350 ml General Appearance: no acute distress HEENT: normocephalic Respiratory/Chest: decreased breath sounds Cardiovascular: normal rate Abdomen: soft, non tender Microbiology Date/Time Source Procedure Growth Status 12/23/18 13:25 Blood Blood Culture - Preliminary NO GROWTH AFTER 48 HOURS Resulted 12/23/18 13:10 Blood Blood Culture - Preliminary NO GROWTH AFTER 48 HOURS Resulted 12/23/18 15:45 Urine,Clean Catch Urine Culture - Final NO GROWTH AFTER 48 HOURS Complete 12/25/18 05:00 Rectum Received Laboratory Tests 12/26/18 04:30: White Blood Count 8.9, Red Blood Count 3.03L, Hemoglobin 8.9L, Hematocrit 27.6L , Mean Corpuscular Volume 91, Mean Corpuscular Hemoglobin 29.5, Mean Corpuscular Hemoglobin Concent 32.3, Red Cell Distribution Width 13.3, Platelet Count 211, Mean Platelet Volume 7.2, Neutrophils (%) (Auto) , Lymphocytes (%) ( Auto) , Monocytes (%) (Auto) , Eosinophils (%) (Auto) , Basophils (%) (Auto) , Sodium Level 142, Potassium Level 3.5, Chloride Level 103, Carbon Dioxide Level 36H, Anion Gap 3L, Blood Urea Nitrogen 14, Creatinine 0.5L, Estimat Glomerular Filtration Rate , Glucose Level 131H, Calcium Level 8.3L, Total Bilirubin 0.3, Aspartate Amino Transf (AST/SGOT) 22, Alanine Aminotransferase (ALT/SGPT) 22, Alkaline Phosphatase 80, Pro-B-Type Natriuretic Peptide 1331H, Total Protein 6.5 , Albumin 2.4L, Globulin 4.1, Albumin/Globulin Ratio 0.6L Current Medications Medications (Trade) Dose Ordered Sig/Katie Route PRN Reason Start Time Stop Time Status Last Admin Dose Admin Acetaminophen (Tylenol) 650 mg Q6HR PRN RECTAL Mild Pain (Pain Scale 1-3) 12/24/18 11:00 01/23/19 10:59 12/24/18 17:27 Albuterol/ Ipratropium (Albuterol/ Ipratropium) 3 ml Q4HRT HHN 12/24/18 03:00 12/29/18 02:59 12/26/18 11:16 Azithromycin 500 mg/Dextrose 275 ml @ 275 mls/hr Q24H IV 12/23/18 21:00 12/30/18 20:59 12/25/18 20:47 Ceftriaxone Sodium 1 gm/ Dextrose 55 ml @ 110 mls/hr Q24H IVPB 12/23/18 22:00 12/30/18 21:59 12/25/18 22:09 Chlorhexidine Gluconate (Radhika-Hex 2%) 1 applic DAILY@2000 TOPIC 12/24/18 20:00 01/23/19 19:59 12/25/18 20:16 Methylprednisolone Sodium Succinate (Solu-MEDROL) 40 mg EVERY 8 HOURS IV 12/23/18 22:00 01/22/19 21:59 12/26/18 06:04 Pantoprazole (Protonix) 40 mg DAILY IVP 12/24/18 09:00 01/23/19 08:59 12/26/18 08:48 Potassium Chloride 20 meq/ Sodium Chloride 1,010 ml @ 50 mls/hr [id number] IV 12/26/18 13:00 01/25/19 12:59 Sodium Hypochlorite (Dakin's Quarter Strength) 1 applic DAILY TOPIC 12/25/18 11:15 01/24/19 11:14 12/26/18 08:48 Eliseo Pena MD Dec 26, 2018 12:35
[2018-12-26] MEDS ORDERED: Potassium Chloride 20 MEQ in 1/2 NS 1000ml 1,000 ML IV SCH (13:00)
--- NOTE | 2018-12-26 15:15 | Progress Note ---
DATE: 12/26/2018 CARDIOLOGY PROGRESS NOTE SUBJECTIVE: The patient was evaluated with nursing staff at bedside. The patient is off BiPAP and very confused but in no respiratory distress. Monitored rhythm remained sinus arrhythmia. The patient's swallow function is poor on liquids and puree due to his level of alertness. PHYSICAL EXAMINATION: VITAL SIGNS: Blood pressure 148/78, pulse 90, respiratory rate 27, afebrile. LUNGS: Coarse breath sounds. Few rhonchi. HEART: Regular rate and rhythm. Normal S1 and S2. A 1/6 systolic murmur at base. ABDOMEN: Soft and nontender. EXTREMITIES: No edema. IMPRESSION: 1. Sepsis with shock, recovered. 2. Hypertensive heart disease. 3. Degenerative mitral valve disease with regurgitation. 4. Toxic and metabolic encephalopathy, resolving. 5. Inguinal hernia, reduced. 6. Aspiration risk. 7. Anemia of chronic disease. 8. Hypokalemia and hypomagnesemia. 9. COPD exacerbation. 10. Acute diastolic congestive heart failure. PLAN: 1. Aspiration precautions. 2. Decrease intravenous fluids. 3. Respiratory hygiene. 4. DVT and stress ulcer prophylaxis. 5. Antihypertensives will be added in the near future. 6. Steroid taper per primary care physician. Cody Melendez M.D. DR: Olamide JOB#: [id number] CC:
[2018-12-26] MEDS ORDERED: Acetaminophen 650 MG SUPP RECTAL PRN (18:00)
[2018-12-26] MEDS ORDERED: Solu-MEDROL 40mg Inj IV SCH (18:00)
[2018-12-26] MEDS: Potassium Chloride 20 MEQ in 1/2 NS 1000ml 1,000 ML IV SCH (18:26)
[2018-12-26] MEDS: Dyna-Hex 2% Top Sol 2oz TOPIC SCH (20:05)
[2018-12-26] MEDS: Azithromycin 500 MG in D5W 275 ML IV SCH (20:06)
[2018-12-26] MEDS: cefTRIAXone 1 GM in D5W 55 ML IVPB SCH (22:22)
[2018-12-27] VITALS: BP 148/75
[2018-12-27] MEDS: Albuterol/Ipratropium 3ml neb HHN SCH ×2 (03:05→08:16)
[2018-12-27 04:00] VITALS: BP 159/93
[2018-12-27 04:39] LABS: HEMATOCRIT 27.8 % (42.0-52.0); MEAN CORPUSCULAR VOLUME 92 FL (80-99); PLATELET COUNT 181 K/UL (150-450); RED BLOOD COUNT 3.02 M/UL (4.70-6.10); RED CELL DISTRIBUTION WIDTH 13.3 % (11.6-14.8); WHITE BLOOD COUNT 8.9 K/UL (4.8-10.8)
[2018-12-27] MEDS: Solu-MEDROL 40mg Inj IV SCH ×3 (05:10→17:51)
[2018-12-27 05:18] LABS: ALANINE AMINOTRANSFERASE 23 U/L (12-78); ALBUMIN 2.4 G/DL (3.4-5.0); ALBUMIN/GLOBULIN RATIO 0.6 (1.0-2.7); ALKALINE PHOSPHATASE 85 U/L (46-116); ANION GAP 7 mmol/L (5-15); ASPARTATE AMINO TRANSFERASE 21 U/L (15-37); BILIRUBIN,TOTAL 0.3 MG/DL (0.2-1.0); BLOOD UREA NITROGEN 12 mg/dL (7-18); CALCIUM 8.2 MG/DL (8.5-10.1); CARBON DIOXIDE 31 MMOL/L (21-32); CHLORIDE 106 MMOL/L (98-107); CREATININE 0.5 MG/DL (0.55-1.30); POTASSIUM 3.7 MMOL/L (3.5-5.1); SODIUM 144 MMOL/L (136-145)
[2018-12-27 08:00] VITALS: BP 106/62
[2018-12-27] MEDS: Pantoprazole Inj IVP SCH (08:41)
[2018-12-27] MEDS ORDERED: Dakin's 0.125% Soln (Quarter Strength) 16oz TOPIC SCH (09:00)
[2018-12-27] MEDS: Levalbuterol Inh UD 1.25mg/0.5ml HHN SCH ×4 (11:14→22:47)
[2018-12-27 12:00] VITALS: BP 169/87
--- NOTE | 2018-12-27 12:26 | Surgery Progress Note ---
Surgery Progress Note Subjective Additional Comments respiratory insufficiency back on bipap no n/v/f/c comfortable otherwise labsnoted Objective Last 24 Hour Vital Signs Date Time Temp Pulse Resp B/P (MAP) Pulse Ox O2 Delivery O2 Flow Rate FiO2 12/27/18 11:51 50 12/27/18 11:12 107 40 100 Facial 30 104 38 100 Bi-Pap 30 12/27/18 09:41 97 22 97 Facial 30 12/27/18 08:00 98.5 93 25 106/62 (77) 91 12/27/18 08:00 Bi-pap 12/27/18 08:00 30 12/27/18 07:59 106 12/27/18 07:41 95 Bi-Pap 12/27/18 07:41 30 12/27/18 07:37 98 33 95 Facial 30 99 30 96 Bi-Pap 30 12/27/18 06:00 2.0 12/27/18 04:00 97.4 94 24 159/93 (115) 95 12/27/18 04:00 Bi-pap 12/27/18 04:00 30 12/27/18 03:48 102 12/27/18 03:07 103 39 93 Facial 25 12/27/18 03:05 102 31 100 Bi-Pap 30 104 35 95 12/27/18 01:27 105 35 95 Facial 30 12/27/18 00:00 Nasal Cannula 2.0 12/27/18 00:00 97.9 115 32 148/75 (99) 100 12/26/18 23:48 108 28 95 Facial 30 12/26/18 23:47 101 25 100 Bi-Pap 30 104 28 97 12/26/18 23:24 101 12/26/18 21:47 78 16 94 Facial 30 12/26/18 20:14 96 Bi-Pap 25 12/26/18 20:11 103 21 100 Bi-Pap 25 100 18 95 12/26/18 20:06 30 12/26/18 20:00 Nasal Cannula 2.0 12/26/18 20:00 98.0 97 17 131/67 (88) 94 12/26/18 20:00 2.0 12/26/18 19:37 96 35 96 Facial 30 12/26/18 19:07 107 12/26/18 17:30 97.7 110 30 137/68 (91) 100 12/26/18 17:00 107 30 124/79 (94) 100 12/26/18 16:00 1.0 12/26/18 16:00 Nasal Cannula 1.0 12/26/18 16:00 100 12/26/18 16:00 96.7 100 30 122/41 (68) 100 12/26/18 15:33 110 34 100 Nasal Cannula 1.0 24 112 31 100 12/26/18 15:00 84 29 132/72 (92) 100 12/26/18 14:00 84 20 123/46 (71) 100 12/26/18 13:00 58 19 109/77 (88) 100 I&O Intake and Output 12/26/18 12/27/18 19:00 07:00 Intake Total 429.996 ml 930 ml Output Total 580 ml 350 ml Balance -150.004 ml 580 ml Intake IV Total 429.996 ml 930 ml Output Urine Total 580 ml 350 ml Dressing: other Wound: other Drains: other Cardiovascular: RSR Respiratory: decreased breath sounds, other Abdomen: non-tender, present bowel sounds Extremities: no cyanosis Laboratory Tests Test 12/27/18 03:45 12/27/18 09:00 White Blood Count 8.9 K/UL (4.8-10.8) Red Blood Count 3.02 M/UL (4.70-6.10) L Hemoglobin 9.0 G/DL (14.2-18.0) L Hematocrit 27.8 % (42.0-52.0) L Mean Corpuscular Volume 92 FL (80-99) Mean Corpuscular Hemoglobin 29.8 PG (27.0-31.0) Mean Corpuscular Hemoglobin Concent 32.4 G/DL (32.0-36.0) Red Cell Distribution Width 13.3 % (11.6-14.8) Platelet Count 181 K/UL (150-450) Mean Platelet Volume 7.3 FL (6.5-10.1) Neutrophils (%) (Auto) % (45.0-75.0) Lymphocytes (%) (Auto) % (20.0-45.0) Monocytes (%) (Auto) % (1.0-10.0) Eosinophils (%) (Auto) % (0.0-3.0) Basophils (%) (Auto) % (0.0-2.0) Sodium Level 144 MMOL/L (136-145) Potassium Level 3.7 MMOL/L (3.5-5.1) Chloride Level 106 MMOL/L (98-107) Carbon Dioxide Level 31 MMOL/L (21-32) Anion Gap 7 mmol/L (5-15) Blood Urea Nitrogen 12 mg/dL (7-18) Creatinine 0.5 MG/DL (0.55-1.30) L Estimat Glomerular Filtration Rate mL/min (>60) Glucose Level 121 MG/DL (74-106) H Calcium Level 8.2 MG/DL (8.5-10.1) L Magnesium Level 1.9 MG/DL (1.8-2.4) Total Bilirubin 0.3 MG/DL (0.2-1.0) Aspartate Amino Transf (AST/SGOT) 21 U/L (15-37) Alanine Aminotransferase (ALT/SGPT) 23 U/L (12-78) Alkaline Phosphatase 85 U/L (46-116) Pro-B-Type Natriuretic Peptide 2320 pg/mL (0-125) H Total Protein 6.4 G/DL (6.4-8.2) Albumin 2.4 G/DL (3.4-5.0) L Globulin 4.0 g/dL Albumin/Globulin Ratio 0.6 (1.0-2.7) L Arterial Blood pH 7.374 (7.350-7.450) Arterial Blood Partial Pressure CO2 51.8 mmHg (35.0-45.0) H Arterial Blood Partial Pressure O2 62.3 mmHg (75.0-100.0) L Arterial Blood HCO3 29.5 mmol/L (22.0-26.0) H Arterial Blood Oxygen Saturation 91.3 % (95-100) L Arterial Blood Base Excess 3.6 (-2-2) H Samuel Test Positive Plan Problems: (1) Failure to thrive in adult Assessment & Plan: DAILY ESTIMATED NEEDS: Needs based on Wound healing, Pulmonary, Underweight/ 49.5kg 30-40 kcals/kg 2386-5834 total kcals 1.25-1.8 g protein/kg 62-89 g total protein 25-30 mL/kg 2588-0865 total fluid mLs NUTRITION DIAGNOSIS: Increased kcal/prot needs R/T underweight status, wound healing, severe COPD per MD as evidenced by pt is 73% IBW w/ BMI of 17.0, admitted w/ advanced sacral and rt elbow wounds, unstageable BL heel wounds, pending eval, currently on BIPAP, NPO. CURRENT DIET:NPO PO DIET RECOMMENDATIONS: WHEN SAFE FOR ORAL DIET AND OFF BIPAP -> regular/ texture per BASE MANAGER ENTERAL NUTRITION RECOMMENDATIONS: CONSULT RD FOR TF REC IF INDICATED AND PART OF POC ADDITIONAL RECOMMENDATIONS: * Per SNF: HT=67", DC=363uha (as of 12/21) -> rec calibrated bedscale wt, weekly wt monitoring * BASE MANAGER evaluation prior to oral diet * Ensure Enlive TID w/ meals w/ oral diet * Wound healing: when able for oral meds -> add MVI w/ min x 1, Vit C 500mg BID, ZnSO4 220mg QD x 10 days -> Gaetano 1pkt BID (2) Malnutrition (3) Decubitus skin ulcer Assessment & Plan: Pt presented on admission with multiple pressure injuries. 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 Base of wound has 95% slough. 5% viable. Bone is palpable. Edges macerated. Non- blanching erythema periwound. No odor noted. Hyperpigmentation with surrounding darker skin tone without induration. Full thickness stage 4 sacral pressure injury with undermining . Base of wound has 60% slough, 40% oscar. Bone is palpable. Small amt brown exudate. Mild odor noted. Periwound darker skin tone noted. (L)7cm x (W)7.3cm x (D)2.5cm, undermining clockwise 8 -3 by 3.8cm @9o'clock. Necrotic area noted to R ischium.Periwound is intact.(L)0.4cm x (W)1.3cm. Stable dry eschar medial/lateral R foot (L)2.2cm x (W)1.5cm. periwound is intact. Black area without induration or fluctuance noted to distal/lateral R foot. (L) 1.5cm x (W)1.8cm. Stable dry eschar dorso/flexor R foot 0.4cm x (W)2.5cm. Unstageable pressure injury R heel. Base of wound is 100% necrotic . Periwound is boggy but no erythema noted (L)6.5cm x (W)7cm. Unstageable pressure injury L heel. Base of wound is 100% necrotic(L)1.5cm x (W) 2.5cm with surrounding pink epithelial bordered by hyperpigmentation(L)4cm x (W) 4.4cm. Reducible LIH Tx.Plan: Cleanse Sacral wound with Dakin's 0.125% mike. Loosely pack with Dakin's moistened kerlix. Apply Moisture Barrier Paste periwound. Cover with Optifoam drsg Twice Daily and prn. Cleanse R elbow with Dakin's 0.125% mike. Loosely pack with dakin's moist Kerlix gauze. Apply Moisture Barrier paste periwound.Cover with Optifoam drsg. Twice Daily and prn. Apply Betadine to R and L heels. Cover with Optifoam drsg. Change every 3 days and prn. Apply Betadine to necrotic areas Lateral R foot and dorso /flexor R foot. Cover each wound with Optifoam drsg every 3 days and prn. Apply Moisture Barrier paste to R ischium. Cover with Optifoam drsg. Change every 3 days and prn. Air Fluidized mattress. Reposition at least every 2hours or as tolerated. Off-load heels with pillow. Elevate R and L elbows with pillow. (4) Sepsis Assessment & Plan: leukocytosis resolved tachypnea improved CXR noted labs noted on NS cont abx IV fluids feeds and nutritional support Downgrade will monitor LIH will follow with recs (5) Respiratory failure (6) Left elbow contusion Sher Keene Dec 27, 2018 12:26
--- NOTE | 2018-12-27 12:35 | Pulmonology Progress Note ---
Assessment/Plan Assessment/Plan 1. Acute on chronic respiratory failure. 2. 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 3. Cachexia and malnutrition. 4. Atherosclerotic aortic and cardiac disease. 5. History of hypertension, now hypotensive. 6. Urinary tract infection. 7. Diastolic heart failure. 8. Glaucoma. 9. Prostate hypertrophy. 10. Anemia. worse with resp distress and sat in 70s placed back on BiPAP and better ABG baseline today continue steroids cont EM dc plan deferred full code Subjective ROS Limited/Unobtainable: Yes Respiratory: Reports: shortness of breath Allergies: Coded Allergies: DORZOLAMIDE (Unverified Allergy, Unknown, 12/23/18) LISINOPRIL (Unverified Allergy, Unknown, 12/23/18) TIMOLOL (Unverified Allergy, Unknown, 12/23/18) TIOTROPIUM (Unverified Allergy, Unknown, 12/23/18) Objective Last 24 Hour Vital Signs Date Time Temp Pulse Resp B/P (MAP) Pulse Ox O2 Delivery O2 Flow Rate FiO2 12/27/18 11:51 50 12/27/18 11:12 107 40 100 Facial 30 104 38 100 Bi-Pap 30 12/27/18 09:41 97 22 97 Facial 30 12/27/18 08:00 98.5 93 25 106/62 (77) 91 12/27/18 08:00 Bi-pap 12/27/18 08:00 30 12/27/18 07:59 106 12/27/18 07:41 95 Bi-Pap 12/27/18 07:41 30 12/27/18 07:37 98 33 95 Facial 30 99 30 96 Bi-Pap 30 12/27/18 06:00 2.0 12/27/18 04:00 97.4 94 24 159/93 (115) 95 12/27/18 04:00 Bi-pap 12/27/18 04:00 30 12/27/18 03:48 102 12/27/18 03:07 103 39 93 Facial 25 12/27/18 03:05 102 31 100 Bi-Pap 30 104 35 95 12/27/18 01:27 105 35 95 Facial 30 12/27/18 00:00 Nasal Cannula 2.0 12/27/18 00:00 97.9 115 32 148/75 (99) 100 12/26/18 23:48 108 28 95 Facial 30 12/26/18 23:47 101 25 100 Bi-Pap 30 104 28 97 12/26/18 23:24 101 12/26/18 21:47 78 16 94 Facial 30 12/26/18 20:14 96 Bi-Pap 25 12/26/18 20:11 103 21 100 Bi-Pap 25 100 18 95 12/26/18 20:06 30 12/26/18 20:00 Nasal Cannula 2.0 12/26/18 20:00 98.0 97 17 131/67 (88) 94 12/26/18 20:00 2.0 12/26/18 19:37 96 35 96 Facial 30 12/26/18 19:07 107 12/26/18 17:30 97.7 110 30 137/68 (91) 100 12/26/18 17:00 107 30 124/79 (94) 100 12/26/18 16:00 1.0 12/26/18 16:00 Nasal Cannula 1.0 12/26/18 16:00 100 12/26/18 16:00 96.7 100 30 122/41 (68) 100 12/26/18 15:33 110 34 100 Nasal Cannula 1.0 24 112 31 100 12/26/18 15:00 84 29 132/72 (92) 100 12/26/18 14:00 84 20 123/46 (71) 100 12/26/18 13:00 58 19 109/77 (88) 100 Intake and Output 12/26/18 12/27/18 19:00 07:00 Intake Total 429.996 ml 930 ml Output Total 580 ml 350 ml Balance -150.004 ml 580 ml Intake IV Total 429.996 ml 930 ml Output Urine Total 580 ml 350 ml General Appearance: no acute distress, cachetic HEENT: atraumatic Respiratory/Chest: decreased breath sounds Cardiovascular: normal rate Abdomen: soft, non tender Microbiology Date/Time Source Procedure Growth Status 12/25/18 05:00 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 Complete 12/25/18 05:00 Rectum - Final NO CARBAPENEM-RESISTANT ENTEROBACTERI... Complete Laboratory Tests 12/27/18 03:45: White Blood Count 8.9, Red Blood Count 3.02L, Hemoglobin 9.0L, Hematocrit 27.8L , Mean Corpuscular Volume 92, Mean Corpuscular Hemoglobin 29.8, Mean Corpuscular Hemoglobin Concent 32.4, Red Cell Distribution Width 13.3, Platelet Count 181, Mean Platelet Volume 7.3, Neutrophils (%) (Auto) , Lymphocytes (%) ( Auto) , Monocytes (%) (Auto) , Eosinophils (%) (Auto) , Basophils (%) (Auto) , Sodium Level 144, Potassium Level 3.7, Chloride Level 106, Carbon Dioxide Level 31, Anion Gap 7, Blood Urea Nitrogen 12, Creatinine 0.5L, Estimat Glomerular Filtration Rate , Glucose Level 121H, Calcium Level 8.2L, Magnesium Level 1.9, Total Bilirubin 0.3, Aspartate Amino Transf (AST/SGOT) 21, Alanine Aminotransferase (ALT/SGPT) 23, Alkaline Phosphatase 85, Pro-B-Type Natriuretic Peptide 2320H, Total Protein 6.4, Albumin 2.4L, Globulin 4.0, Albumin/Globulin Ratio 0.6L 12/27/18 09:00: Arterial Blood pH 7.374, Arterial Blood Partial Pressure CO2 51.8H, Arterial Blood Partial Pressure O2 62.3L, Arterial Blood HCO3 29.5H, Arterial Blood Oxygen Saturation 91.3L, Arterial Blood Base Excess 3.6H, Samuel Test Positive Current Medications Medications (Trade) Dose Ordered Sig/Katie Route PRN Reason Start Time Stop Time Status Last Admin Dose Admin Acetaminophen (Tylenol) 650 mg Q6H PRN RECTAL Mild Pain (Pain Scale 1-3) 12/26/18 18:00 01/25/19 17:59 Azithromycin 500 mg/Dextrose 275 ml @ 275 mls/hr Q24H IV 12/26/18 21:00 12/30/18 20:59 12/26/18 20:06 Ceftriaxone Sodium 1 gm/ Dextrose 55 ml @ 110 mls/hr Q24H IVPB 12/26/18 22:00 12/30/18 21:59 12/26/18 22:22 Chlorhexidine Gluconate (Radhika-Hex 2%) 1 applic DAILY@2000 TOPIC 12/26/18 20:00 01/23/19 19:59 12/26/18 20:05 Levalbuterol HCl (Xopenex) 1.25 mg Q4HRT HHN 12/27/18 11:00 01/01/19 10:59 12/27/18 11:14 Methylprednisolone Sodium Succinate (Solu-MEDROL) 20 mg Q12H IV 12/26/18 18:00 01/22/19 21:59 12/27/18 05:10 Pantoprazole (Protonix) 40 mg DAILY IVP 12/27/18 09:00 01/23/19 08:59 12/27/18 08:41 Potassium Chloride 20 meq/ Sodium Chloride 1,010 ml @ 50 mls/hr [id number] IV 12/26/18 17:45 01/25/19 12:59 12/26/18 18:26 Sodium Hypochlorite (Dakin's Quarter Strength) 1 applic EVERY 12 HOURS TOPIC 12/27/18 21:00 01/24/19 11:14 Eliseo Pena MD Dec 27, 2018 12:35
[2018-12-27] MEDS: Potassium Chloride 20 MEQ in 1/2 NS 1000ml 1,000 ML IV SCH (13:49)
[2018-12-27 16:00] VITALS: BP 110/80
[2018-12-27 20:00] VITALS: BP 127/79
[2018-12-27] MEDS: Dakin's 0.125% Soln (Quarter Strength) 16oz TOPIC SCH (21:32)
[2018-12-27] MEDS: Azithromycin 500 MG in D5W 275 ML IV SCH (21:32)
[2018-12-27] MEDS: Dyna-Hex 2% Top Sol 2oz TOPIC SCH (21:33)
--- NOTE | 2018-12-27 22:15 | Progress Note ---
DATE: 12/27/2018 CARDIOLOGY PROGRESS NOTE SUBJECTIVE: The patient remains in the intensive care unit. He remains on BiPAP support, still with respiratory distress and episodes of hypoxia. Remains on IV steroids, inhaled bronchodilators. OBJECTIVE: VITAL SIGNS: Blood pressure 106/62, pulse 93, respirations 25, monitor sinus and sinus tachycardia. LUNGS: Diminished breath sounds. Scattered rhonchi. CHEST: Right chest wall central venous catheter in place. HEART: Regular rhythm and rate. Normal S1, S2. ABDOMEN: Soft, nontender. EXTREMITIES: No edema. LABORATORY DATA: White count 8.9, hemoglobin 9.0. ABG 7.37, 51, 62. Sodium 144, potassium 3.7, bicarbonate 31, BUN 12, creatinine 0.5. Pro-natriuretic peptide increased to 2300. IMPRESSION: 1. Respiratory failure. 2. Sepsis with shock. 3. Degenerative mitral valve disease with regurgitation. 4. Acute on chronic diastolic congestive heart failure. 5. History of hypertension with hypertensive heart disease. 6. COPD exacerbation. PLAN: 1. Respiratory hygiene. 2. Now off pressors. 3. Replace magnesium and potassium. 4. Empiric antimicrobials. 5. Reassess for diuresis. Cody Melendez M.D. DR: PARVIN JOB#: [id number] CC:
[2018-12-27] MEDS: cefTRIAXone 1 GM in D5W 55 ML IVPB SCH (22:57)
[2018-12-28] VITALS: BP 101/56
[2018-12-28] MEDS: Levalbuterol Inh UD 1.25mg/0.5ml HHN SCH ×6 (02:43→23:20)
[2018-12-28 04:00] VITALS: BP 105/59
[2018-12-28 05:34] LABS: HEMATOCRIT 29.6 % (42.0-52.0); HEMOGLOBIN 8.7 G/DL (14.2-18.0); MEAN CORPUSCULAR VOLUME 98 FL (80-99); PLATELET COUNT 146 K/UL (150-450); RED BLOOD COUNT 3.03 M/UL (4.70-6.10); RED CELL DISTRIBUTION WIDTH 14.8 % (11.6-14.8); WHITE BLOOD COUNT 8.4 K/UL (4.8-10.8)
[2018-12-28 05:42] LABS: ALANINE AMINOTRANSFERASE 18 U/L (12-78); ALBUMIN 2.1 G/DL (3.4-5.0); ALBUMIN/GLOBULIN RATIO 0.6 (1.0-2.7); ALKALINE PHOSPHATASE 71 U/L (46-116); ANION GAP -3 mmol/L (5-15); ASPARTATE AMINO TRANSFERASE 23 U/L (15-37); BILIRUBIN,TOTAL 0.3 MG/DL (0.2-1.0); BLOOD UREA NITROGEN 12 mg/dL (7-18); CALCIUM 7.9 MG/DL (8.5-10.1); CARBON DIOXIDE 39 MMOL/L (21-32); CHLORIDE 106 MMOL/L (98-107); CREATININE 0.4 MG/DL (0.55-1.30); POTASSIUM 3.9 MMOL/L (3.5-5.1); SODIUM 142 MMOL/L (136-145)
[2018-12-28] MEDS: Solu-MEDROL 40mg Inj IV SCH ×2 (05:58→17:38)
[2018-12-28 08:00] VITALS: BP 100/59
[2018-12-28] MEDS: Dakin's 0.125% Soln (Quarter Strength) 16oz TOPIC SCH ×2 (09:19→20:44)
[2018-12-28] MEDS: Pantoprazole Inj IVP SCH (09:19)
[2018-12-28 12:00] VITALS: BP 127/49
--- NOTE | 2018-12-28 14:43 | Pulmonology Progress Note ---
Assessment/Plan Assessment/Plan 1. Acute on chronic respiratory failure. 2. 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 3. Cachexia and malnutrition. 4. Atherosclerotic aortic and cardiac disease. 5. History of hypertension, now hypotensive. 6. Urinary tract infection. 7. Diastolic heart failure. 8. Glaucoma. 9. Prostate hypertrophy. 10. Anemia. better, off BiPAP lethargic sat 100%; O2 decreased continue steroids cont EM full code; called DPOA and left msg Subjective ROS Limited/Unobtainable: Yes Allergies: Coded Allergies: DORZOLAMIDE (Unverified Allergy, Unknown, 12/23/18) LISINOPRIL (Unverified Allergy, Unknown, 12/23/18) TIMOLOL (Unverified Allergy, Unknown, 12/23/18) TIOTROPIUM (Unverified Allergy, Unknown, 12/23/18) Objective Last 24 Hour Vital Signs Date Time Temp Pulse Resp B/P (MAP) Pulse Ox O2 Delivery O2 Flow Rate FiO2 12/28/18 12:00 2.0 12/28/18 11:43 75 20 100 3.0 32 72 22 100 12/28/18 11:43 58 12/28/18 08:00 97.2 67 15 100/59 (73) 99 12/28/18 08:00 Bi-pap 12/28/18 08:00 30 12/28/18 07:36 71 12/28/18 07:02 61 12 100 Facial 30 61 12 100 Bi-Pap 30 12/28/18 07:01 100 Bi-Pap 35 12/28/18 05:01 62 14 100 Facial 30 12/28/18 04:00 Bi-pap 12/28/18 04:00 97.9 69 21 105/59 (74) 99 12/28/18 04:00 53 12/28/18 04:00 50 12/28/18 02:43 51 12 100 Facial 30 51 12 100 Bi-Pap 30 12/28/18 00:43 59 12 100 Facial 30 12/28/18 00:00 50 12/28/18 00:00 97.8 67 19 101/56 (71) 99 12/28/18 00:00 57 12/28/18 00:00 Bi-pap 12/27/18 22:47 54 13 100 Facial 30 60 14 100 Bi-Pap 30 12/27/18 21:05 56 14 100 Facial 30 12/27/18 20:04 100 Bi-Pap 12/27/18 20:02 72 12 100 Facial 30 73 12 100 Bi-Pap 30 12/27/18 20:00 73 12/27/18 20:00 Bi-pap 12/27/18 20:00 50 12/27/18 20:00 97.6 85 20 127/79 (95) 99 12/27/18 17:24 84 13 100 Facial 30 12/27/18 16:00 Bi-pap 12/27/18 16:00 98.2 59 17 110/80 (90) 100 12/27/18 16:00 50 12/27/18 15:36 62 12/27/18 14:59 64 12 100 Facial 30 68 12 100 Bi-Pap 30 Intake and Output 12/27/18 12/28/18 19:00 07:00 Intake Total 509.2 ml 930 ml Output Total 400 ml 400 ml Balance 109.2 ml 530 ml Intake Oral 0 ml IV Total 509.2 ml 930 ml Output Urine Total 400 ml 400 ml General Appearance: no acute distress HEENT: atraumatic Respiratory/Chest: decreased breath sounds Cardiovascular: normal rate Laboratory Tests 12/28/18 04:00: White Blood Count 8.4, Red Blood Count 3.03L, Hemoglobin 8.7L, Hematocrit 29.6L , Mean Corpuscular Volume 98, Mean Corpuscular Hemoglobin 28.9, Mean Corpuscular Hemoglobin Concent 29.6L, Red Cell Distribution Width 14.8, Platelet Count 146L, Mean Platelet Volume 7.3, Neutrophils (%) (Auto) , Lymphocytes (%) (Auto) , Monocytes (%) (Auto) , Eosinophils (%) (Auto) , Basophils (%) (Auto) , Sodium Level 142, Potassium Level 3.9, Chloride Level 106 , Carbon Dioxide Level 39H, Anion Gap -3L, Blood Urea Nitrogen 12, Creatinine 0.4L, Estimat Glomerular Filtration Rate , Glucose Level 86, Calcium Level 7.9L , Total Bilirubin 0.3, Aspartate Amino Transf (AST/SGOT) 23, Alanine Aminotransferase (ALT/SGPT) 18, Alkaline Phosphatase 71, Total Protein 5.6L, Albumin 2.1L, Globulin 3.5, Albumin/Globulin Ratio 0.6L Current Medications Medications (Trade) Dose Ordered Sig/Katie Route PRN Reason Start Time Stop Time Status Last Admin Dose Admin Acetaminophen (Tylenol) 650 mg Q6H PRN RECTAL Mild Pain (Pain Scale 1-3) 12/26/18 18:00 01/25/19 17:59 Azithromycin 500 mg/Dextrose 275 ml @ 275 mls/hr Q24H IV 12/26/18 21:00 12/30/18 20:59 12/27/18 21:32 Ceftriaxone Sodium 1 gm/ Dextrose 55 ml @ 110 mls/hr Q24H IVPB 12/26/18 22:00 12/30/18 21:59 12/27/18 22:57 Chlorhexidine Gluconate (Radhika-Hex 2%) 1 applic DAILY@1999 TOPIC 12/26/18 20:00 01/23/19 19:59 12/27/18 21:33 Levalbuterol HCl (Xopenex) 1.25 mg Q4HRT HHN 12/27/18 11:00 01/01/19 10:59 12/28/18 11:42 Methylprednisolone Sodium Succinate (Solu-MEDROL) 20 mg Q12H IV 12/26/18 18:00 01/22/19 21:59 12/28/18 05:58 Pantoprazole (Protonix) 40 mg DAILY IVP 12/27/18 09:00 01/23/19 08:59 12/28/18 09:19 Sodium Hypochlorite (Dakin's Quarter Strength) 1 applic EVERY 12 HOURS TOPIC 12/27/18 21:00 01/24/19 11:14 12/28/18 09:19 Eliseo Pena MD Dec 28, 2018 14:43
[2018-12-28 16:00] VITALS: BP 126/50
--- NOTE | 2018-12-28 17:02 | Surgery Progress Note ---
Surgery Progress Note Subjective Additional Comments on bipap labs stable awake and states comfortable moving around no n/v/f/c Objective Last 24 Hour Vital Signs Date Time Temp Pulse Resp B/P (MAP) Pulse Ox O2 Delivery O2 Flow Rate FiO2 12/28/18 16:33 50 22 100 12/28/18 16:18 61 12 100 Facial 30 61 12 100 Bi-Pap 30 12/28/18 16:00 97.9 83 17 126/50 (75) 100 12/28/18 16:00 Room Air 12/28/18 16:00 77 12/28/18 12:00 97.4 80 17 127/49 (75) 100 12/28/18 12:00 Nasal Cannula 2.0 12/28/18 12:00 2.0 12/28/18 11:43 75 20 100 3.0 32 72 22 100 12/28/18 11:43 58 12/28/18 08:00 97.2 67 15 100/59 (73) 99 12/28/18 08:00 Bi-pap 12/28/18 08:00 30 12/28/18 07:36 71 12/28/18 07:02 61 12 100 Facial 30 61 12 100 Bi-Pap 30 12/28/18 07:01 100 Bi-Pap 35 12/28/18 05:01 62 14 100 Facial 30 12/28/18 04:00 Bi-pap 12/28/18 04:00 97.9 69 21 105/59 (74) 99 12/28/18 04:00 53 12/28/18 04:00 50 12/28/18 02:43 51 12 100 Facial 30 51 12 100 Bi-Pap 30 12/28/18 00:43 59 12 100 Facial 30 12/28/18 00:00 50 12/28/18 00:00 97.8 67 19 101/56 (71) 99 12/28/18 00:00 57 12/28/18 00:00 Bi-pap 12/27/18 22:47 54 13 100 Facial 30 60 14 100 Bi-Pap 30 12/27/18 21:05 56 14 100 Facial 30 12/27/18 20:04 100 Bi-Pap 12/27/18 20:02 72 12 100 Facial 30 73 12 100 Bi-Pap 30 12/27/18 20:00 73 12/27/18 20:00 Bi-pap 12/27/18 20:00 50 12/27/18 20:00 97.6 85 20 127/79 (95) 99 12/27/18 17:24 84 13 100 Facial 30 I&O Intake and Output 12/27/18 12/28/18 19:00 07:00 Intake Total 509.2 ml 930 ml Output Total 400 ml 400 ml Balance 109.2 ml 530 ml Intake Oral 0 ml IV Total 509.2 ml 930 ml Output Urine Total 400 ml 400 ml Dressing: saturated Wound: clean Cardiovascular: RSR Respiratory: decreased breath sounds Abdomen: soft, present bowel sounds Extremities: no cyanosis, other Laboratory Tests Test 12/28/18 04:00 White Blood Count 8.4 K/UL (4.8-10.8) Red Blood Count 3.03 M/UL (4.70-6.10) L Hemoglobin 8.7 G/DL (14.2-18.0) L Hematocrit 29.6 % (42.0-52.0) L Mean Corpuscular Volume 98 FL (80-99) Mean Corpuscular Hemoglobin 28.9 PG (27.0-31.0) Mean Corpuscular Hemoglobin Concent 29.6 G/DL (32.0-36.0) L Red Cell Distribution Width 14.8 % (11.6-14.8) Platelet Count 146 K/UL (150-450) L Mean Platelet Volume 7.3 FL (6.5-10.1) Neutrophils (%) (Auto) % (45.0-75.0) Lymphocytes (%) (Auto) % (20.0-45.0) Monocytes (%) (Auto) % (1.0-10.0) Eosinophils (%) (Auto) % (0.0-3.0) Basophils (%) (Auto) % (0.0-2.0) Sodium Level 142 MMOL/L (136-145) Potassium Level 3.9 MMOL/L (3.5-5.1) Chloride Level 106 MMOL/L (98-107) Carbon Dioxide Level 39 MMOL/L (21-32) H Anion Gap -3 mmol/L (5-15) L Blood Urea Nitrogen 12 mg/dL (7-18) Creatinine 0.4 MG/DL (0.55-1.30) L Estimat Glomerular Filtration Rate mL/min (>60) Glucose Level 86 MG/DL (74-106) Calcium Level 7.9 MG/DL (8.5-10.1) L Total Bilirubin 0.3 MG/DL (0.2-1.0) Aspartate Amino Transf (AST/SGOT) 23 U/L (15-37) Alanine Aminotransferase (ALT/SGPT) 18 U/L (12-78) Alkaline Phosphatase 71 U/L (46-116) Total Protein 5.6 G/DL (6.4-8.2) L Albumin 2.1 G/DL (3.4-5.0) L Globulin 3.5 g/dL Albumin/Globulin Ratio 0.6 (1.0-2.7) L Plan Problems: (1) Failure to thrive in adult Assessment & Plan: DAILY ESTIMATED NEEDS: Needs based on Wound healing, Pulmonary, Underweight/ 49.5kg 30-40 kcals/kg 2966-3236 total kcals 1.25-1.8 g protein/kg 62-89 g total protein 25-30 mL/kg 4973-8658 total fluid mLs NUTRITION DIAGNOSIS: Increased kcal/prot needs R/T underweight status, wound healing, severe COPD per MD as evidenced by pt is 73% IBW w/ BMI of 17.0, admitted w/ advanced sacral and rt elbow wounds, unstageable BL heel wounds, pending eval, currently on BIPAP, NPO. CURRENT DIET:NPO PO DIET RECOMMENDATIONS: WHEN SAFE FOR ORAL DIET AND OFF BIPAP -> regular/ texture per [employer] ENTERAL NUTRITION RECOMMENDATIONS: CONSULT RD FOR TF REC IF INDICATED AND PART OF POC ADDITIONAL RECOMMENDATIONS: * Per SNF: HT=67", AH=248odf (as of 12/21) -> rec calibrated bedscale wt, weekly wt monitoring * [employer] evaluation prior to oral diet * Ensure Enlive TID w/ meals w/ oral diet * Wound healing: when able for oral meds -> add MVI w/ min x 1, Vit C 500mg BID, ZnSO4 220mg QD x 10 days -> Gaetano 1pkt BID (2) Malnutrition (3) Decubitus skin ulcer Assessment & Plan: Pt presented on admission with multiple pressure injuries. 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 Base of wound has 95% slough. 5% viable. Bone is palpable. Edges macerated. Non- blanching erythema periwound. No odor noted. Hyperpigmentation with surrounding darker skin tone without induration. Full thickness stage 4 sacral pressure injury with undermining . Base of wound has 60% slough, 40% oscar. Bone is palpable. Small amt brown exudate. Mild odor noted. Periwound darker skin tone noted. (L)7cm x (W)7.3cm x (D)2.5cm, undermining clockwise 8 -3 by 3.8cm @9o'clock. Necrotic area noted to R ischium.Periwound is intact.(L)0.4cm x (W)1.3cm. Stable dry eschar medial/lateral R foot (L)2.2cm x (W)1.5cm. periwound is intact. Black area without induration or fluctuance noted to distal/lateral R foot. (L) 1.5cm x (W)1.8cm. Stable dry eschar dorso/flexor R foot 0.4cm x (W)2.5cm. Unstageable pressure injury R heel. Base of wound is 100% necrotic . Periwound is boggy but no erythema noted (L)6.5cm x (W)7cm. Unstageable pressure injury L heel. Base of wound is 100% necrotic(L)1.5cm x (W) 2.5cm with surrounding pink epithelial bordered by hyperpigmentation(L)4cm x (W) 4.4cm. Reducible LIH Tx.Plan: Cleanse Sacral wound with Dakin's 0.125% mike. Loosely pack with Dakin's moistened kerlix. Apply Moisture Barrier Paste periwound. Cover with Optifoam drsg Twice Daily and prn. Cleanse R elbow with Dakin's 0.125% mike. Loosely pack with dakin's moist Kerlix gauze. Apply Moisture Barrier paste periwound.Cover with Optifoam drsg. Twice Daily and prn. Apply Betadine to R and L heels. Cover with Optifoam drsg. Change every 3 days and prn. Apply Betadine to necrotic areas Lateral R foot and dorso /flexor R foot. Cover each wound with Optifoam drsg every 3 days and prn. Apply Moisture Barrier paste to R ischium. Cover with Optifoam drsg. Change every 3 days and prn. Air Fluidized mattress. Reposition at least every 2hours or as tolerated. Off-load heels with pillow. Elevate R and L elbows with pillow. (4) Sepsis Assessment & Plan: leukocytosis resolved tachypnea improved CXR noted labs noted on NS cont abx IV fluids feeds and nutritional support Downgrade will monitor LIH will follow with recs (5) Respiratory failure (6) Left elbow contusion Sher Keene Dec 28, 2018 17:02
[2018-12-28 20:00] VITALS: BP 147/59
[2018-12-28] MEDS: Dyna-Hex 2% Top Sol 2oz TOPIC SCH (20:41)
[2018-12-28] MEDS: Azithromycin 500 MG in D5W 275 ML IV SCH (20:41)
[2018-12-28] MEDS: Heparin 5000 units/ml inj SUBQ SCH (20:43)
[2018-12-28] MEDS: cefTRIAXone 1 GM in D5W 55 ML IVPB SCH (21:51)
[2018-12-29] VITALS: BP 136/56
--- NOTE | 2018-12-29 00:15 | Progress Note ---
CARDIOLOGY PROGRESS NOTE SUBJECTIVE: The patient has less congestion and shortness of breath. He is off BiPAP support. Monitored rhythm, sinus. He remains off pressors. He continues with steroid tapering and bronchodilators. OBJECTIVE: VITAL SIGNS: Blood pressure 126/50, pulse 77, respirations 17, and afebrile. LUNGS: Coarse breath sounds bilaterally. No wheezes. HEART: Regular rhythm and rate. Normal S1, S2. ABDOMEN: Soft. EXTREMITIES: No edema. LABORATORY DATA: White count 8.4 and hemoglobin 8.7. Potassium 3.9, BUN 12, and creatinine 0.4. Albumin 2.1. IMPRESSION: 1. Respiratory failure. 2. Sepsis with shock. 3. Acute on chronic diastolic congestive heart failure. 4. Healthcare-acquired pneumonia. PLAN: 1. Antimicrobials. 2. Respiratory hygiene. 3. Diuresis added. 4. Off IV fluids. 5. Inhaled bronchodilators. 6. DVT and stress ulcer prophylaxis. Cody Melendez M.D. DR: STACI JOB#: [id number] CC:
[2018-12-29] MEDS: Levalbuterol Inh UD 1.25mg/0.5ml HHN SCH ×5 (03:37→22:27)
[2018-12-29 04:00] VITALS: BP 149/68
[2018-12-29] MEDS: Solu-MEDROL 40mg Inj IV SCH ×2 (06:08→17:32)
[2018-12-29 08:00] VITALS: BP 166/77
[2018-12-29] MEDS: Pantoprazole Inj IVP SCH (08:56)
[2018-12-29] MEDS: Heparin 5000 units/ml inj SUBQ SCH ×2 (09:00→20:40)
[2018-12-29] MEDS: Dakin's 0.125% Soln (Quarter Strength) 16oz TOPIC SCH ×2 (09:18→20:40)
[2018-12-29 12:00] VITALS: BP 160/76
[2018-12-29] MEDS ORDERED: Azithromycin 250mg tab ORAL SCH (15:00)
--- NOTE | 2018-12-29 15:51 | Pulmonology Progress Note ---
Assessment/Plan Assessment/Plan 1. Acute on chronic respiratory failure. 2. 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 3. Cachexia and malnutrition. 4. Atherosclerotic aortic and cardiac disease. 5. History of hypertension, now hypotensive. 6. Urinary tract infection. 7. Diastolic heart failure with edema 8. Glaucoma. 9. Prostate hypertrophy. 10. Anemia. off BiPAP awake, weak refuses all POs continue steroids cont EM spoke to DPOA; advised DNR she will poll family cardiology added lasix Subjective ROS Limited/Unobtainable: Yes Allergies: Coded Allergies: DORZOLAMIDE (Unverified Allergy, Unknown, 12/23/18) LISINOPRIL (Unverified Allergy, Unknown, 12/23/18) TIMOLOL (Unverified Allergy, Unknown, 12/23/18) TIOTROPIUM (Unverified Allergy, Unknown, 12/23/18) Objective Last 24 Hour Vital Signs Date Time Temp Pulse Resp B/P (MAP) Pulse Ox O2 Delivery O2 Flow Rate FiO2 12/29/18 15:10 83 20 90 83 20 91 12/29/18 14:43 84 160/76 12/29/18 12:00 Nasal Cannula 2.0 12/29/18 12:00 98.7 78 18 160/76 (104) 93 12/29/18 12:00 84 12/29/18 11:00 82 20 98 79 20 96 12/29/18 08:00 Room Air 12/29/18 08:00 97.0 78 20 166/77 (106) 100 12/29/18 08:00 81 12/29/18 07:47 78 20 98 80 20 96 12/29/18 07:45 96 Nasal Cannula 2.0 28 12/29/18 06:00 63 12/29/18 05:23 71 30 93 Full Face 25 12/29/18 04:00 Room Air 12/29/18 04:00 97.8 70 19 149/68 (95) 98 12/29/18 04:00 63 12/29/18 03:37 70 20 95 67 20 93 12/29/18 03:00 69 24 94 Full Face 25 12/29/18 01:30 50 12 98 Full Face 25 12/29/18 00:00 97.6 66 19 136/56 (82) 100 12/29/18 00:00 Room Air 12/29/18 00:00 60 12/28/18 23:20 55 13 98 Facial 25 58 14 99 Bi-Pap 25 12/28/18 21:30 54 12 98 Facial 25 12/28/18 20:00 Room Air 12/28/18 20:00 46 12/28/18 20:00 97.9 49 18 147/59 (88) 100 12/28/18 20:00 100 Bi-Pap 25 12/28/18 19:30 46 12 100 Facial 25 56 12 100 Bi-Pap 25 12/28/18 16:33 50 22 100 12/28/18 16:18 61 12 100 Facial 30 61 12 100 Bi-Pap 30 12/28/18 16:00 97.9 83 17 126/50 (75) 100 12/28/18 16:00 Room Air 12/28/18 16:00 77 Intake and Output 12/28/18 12/29/18 19:00 07:00 Intake Total 390.8 ml 330 ml Output Total 625 ml Balance -234.2 ml 330 ml Intake Oral 240 ml IV Total 150.8 ml 330 ml Output Urine Total 625 ml General Appearance: cachetic, other - mild SOB HEENT: atraumatic Respiratory/Chest: decreased breath sounds Cardiovascular: normal rate Abdomen: soft, non tender Extremities: other - 2+ edema Current Medications Medications (Trade) Dose Ordered Sig/Katie Route PRN Reason Start Time Stop Time Status Last Admin Dose Admin Acetaminophen (Tylenol) 650 mg Q6H PRN RECTAL Mild Pain (Pain Scale 1-3) 12/26/18 18:00 01/25/19 17:59 Amlodipine Besylate (Norvasc) 5 mg DAILY ORAL 12/29/18 14:00 01/28/19 13:59 12/29/18 14:43 Azithromycin (Zithromax) 500 mg DAILY ORAL 12/29/18 15:00 01/01/19 09:01 Ceftriaxone Sodium 1 gm/ Dextrose 55 ml @ 110 mls/hr Q24H IVPB 12/26/18 22:00 01/01/19 23:59 12/28/18 21:51 Chlorhexidine Gluconate (Radhika-Hex 2%) 1 applic DAILY@2000 TOPIC 12/26/18 20:00 01/23/19 19:59 12/28/18 20:41 Heparin Sodium (Porcine) (Heparin 5000 units/ml) 5,000 units EVERY 12 HOURS SUBQ 12/28/18 21:00 01/27/19 20:59 12/28/18 20:43 Levalbuterol HCl (Xopenex) 1.25 mg Q4HRT HHN 12/27/18 11:00 01/01/19 10:59 12/29/18 15:12 Methylprednisolone Sodium Succinate (Solu-MEDROL) 20 mg Q12H IV 12/26/18 18:00 01/22/19 21:59 12/29/18 06:08 Pantoprazole (Protonix) 40 mg DAILY IVP 12/27/18 09:00 01/23/19 08:59 12/29/18 08:56 Sodium Hypochlorite (Dakin's Quarter Strength) 1 applic EVERY 12 HOURS TOPIC 12/27/18 21:00 01/24/19 11:14 12/29/18 09:18 Tamsulosin HCl (Flomax) 0.4 mg BEDTIME ORAL 12/29/18 21:00 01/28/19 20:59 Eliseo Pena MD Dec 29, 2018 15:51
[2018-12-29 16:00] VITALS: BP 154/56
--- NOTE | 2018-12-29 16:56 | Cardiology Report ---
APPROVED REPORT EKG Measurement Heart [id number] Sinus rhythm with premature supraventricular complexes Otherwise normal ECG
--- NOTE | 2018-12-29 17:21 | Cardiology Report ---
APPROVED REPORT EKG Measurement Heart [id number] [id number] Sinus tachycardia with premature atrial complexes Otherwise normal ECG
--- NOTE | 2018-12-29 17:31 | Surgery Progress Note ---
Surgery Progress Note Subjective Additional Comments no acute events comfortable no complaints Objective Last 24 Hour Vital Signs Date Time Temp Pulse Resp B/P (MAP) Pulse Ox O2 Delivery O2 Flow Rate FiO2 12/29/18 16:00 Nasal Cannula 2.0 12/29/18 16:00 90 12/29/18 16:00 2.0 12/29/18 16:00 97.4 88 20 154/56 (88) 100 12/29/18 15:10 83 20 90 83 20 91 12/29/18 14:43 84 160/76 12/29/18 12:00 Nasal Cannula 2.0 12/29/18 12:00 2.0 12/29/18 12:00 98.7 78 18 160/76 (104) 93 12/29/18 12:00 84 12/29/18 11:00 82 20 98 79 20 96 12/29/18 08:00 Room Air 12/29/18 08:00 97.0 78 20 166/77 (106) 100 12/29/18 08:00 81 12/29/18 07:47 78 20 98 80 20 96 12/29/18 07:45 96 Nasal Cannula 2.0 28 12/29/18 06:00 63 12/29/18 05:23 71 30 93 Full Face 25 12/29/18 04:00 Room Air 12/29/18 04:00 97.8 70 19 149/68 (95) 98 12/29/18 04:00 63 12/29/18 03:37 70 20 95 67 20 93 12/29/18 03:00 69 24 94 Full Face 25 12/29/18 01:30 50 12 98 Full Face 25 12/29/18 00:00 97.6 66 19 136/56 (82) 100 12/29/18 00:00 Room Air 12/29/18 00:00 60 12/28/18 23:20 55 13 98 Facial 25 58 14 99 Bi-Pap 25 12/28/18 21:30 54 12 98 Facial 25 12/28/18 20:00 Room Air 12/28/18 20:00 46 12/28/18 20:00 97.9 49 18 147/59 (88) 100 12/28/18 20:00 100 Bi-Pap 25 12/28/18 19:30 46 12 100 Facial 25 56 12 100 Bi-Pap 25 I&O Intake and Output 12/28/18 12/29/18 19:00 07:00 Intake Total 390.8 ml 330 ml Output Total 625 ml Balance -234.2 ml 330 ml Intake Oral 240 ml IV Total 150.8 ml 330 ml Output Urine Total 625 ml Dressing: other Wound: other Drains: other Cardiovascular: RSR Respiratory: decreased breath sounds Abdomen: soft, present bowel sounds, non-distended Extremities: no cyanosis, other Plan Problems: (1) Failure to thrive in adult Assessment & Plan: DAILY ESTIMATED NEEDS: Needs based on Wound healing, Pulmonary, Underweight/ 49.5kg 30-40 kcals/kg 3986-2309 total kcals 1.25-1.8 g protein/kg 62-89 g total protein 25-30 mL/kg 5614-0973 total fluid mLs NUTRITION DIAGNOSIS: Increased kcal/prot needs R/T underweight status, wound healing, severe COPD per MD as evidenced by pt is 73% IBW w/ BMI of 17.0, admitted w/ advanced sacral and rt elbow wounds, unstageable BL heel wounds, pending eval, currently on BIPAP, NPO. 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 Base of wound has 95% slough. 5% viable. Bone is palpable. Edges macerated. Non- blanching erythema periwound. No odor noted. Hyperpigmentation with surrounding darker skin tone without induration. Full thickness stage 4 sacral pressure injury with undermining . Base of wound has 60% slough, 40% oscar. Bone is palpable. Small amt brown exudate. Mild odor noted. Periwound darker skin tone noted. (L)7cm x (W)7.3cm x (D)2.5cm, undermining clockwise 8 -3 by 3.8cm @9o'clock. Necrotic area noted to R ischium.Periwound is intact.(L)0.4cm x (W)1.3cm. Stable dry eschar medial/lateral R foot (L)2.2cm x (W)1.5cm. periwound is intact. Black area without induration or fluctuance noted to distal/lateral R foot. (L) 1.5cm x (W)1.8cm. Stable dry eschar dorso/flexor R foot 0.4cm x (W)2.5cm. Unstageable pressure injury R heel. Base of wound is 100% necrotic . Periwound is boggy but no erythema noted (L)6.5cm x (W)7cm. Unstageable pressure injury L heel. Base of wound is 100% necrotic(L)1.5cm x (W) 2.5cm with surrounding pink epithelial bordered by hyperpigmentation(L)4cm x (W) 4.4cm. Reducible LIH Tx.Plan: Cleanse Sacral wound with Dakin's 0.125% mike. Loosely pack with Dakin's moistened kerlix. Apply Moisture Barrier Paste periwound. Cover with Optifoam drsg Twice Daily and prn. Cleanse R elbow with Dakin's 0.125% mike. Loosely pack with dakin's moist Kerlix gauze. Apply Moisture Barrier paste periwound.Cover with Optifoam drsg. Twice Daily and prn. Apply Betadine to R and L heels. Cover with Optifoam drsg. Change every 3 days and prn. Apply Betadine to necrotic areas Lateral R foot and dorso /flexor R foot. Cover each wound with Optifoam drsg every 3 days and prn. Apply Moisture Barrier paste to R ischium. Cover with Optifoam drsg. Change every 3 days and prn. Air Fluidized mattress. Reposition at least every 2hours or as tolerated. Off-load heels with pillow. Elevate R and L elbows with pillow. (4) Sepsis Assessment & Plan: leukocytosis resolved tachypnea improved CXR noted labs noted on NS cont abx IV fluids feeds and nutritional support Downgrade will monitor LIH will follow with recs (5) Respiratory failure (6) Left elbow contusion Sher Keene Dec 29, 2018 17:31
[2018-12-29 20:00] VITALS: BP 134/62
[2018-12-29] MEDS: Dyna-Hex 2% Top Sol 2oz TOPIC SCH (20:38)
[2018-12-29] MEDS: Tamsulosin 0.4mg cap ORAL SCH (20:38)
[2018-12-29] MEDS: Azithromycin 500 MG in D5W 275 ML IV SCH (20:39)
[2018-12-29] MEDS: cefTRIAXone 1 GM in D5W 55 ML IVPB SCH (21:48)
[2018-12-30] VITALS: BP 107/55
[2018-12-30] MEDS: Levalbuterol Inh UD 1.25mg/0.5ml HHN SCH ×7 (03:05→22:40)
[2018-12-30 04:00] VITALS: BP 118/64
[2018-12-30 05:00] LABS: HEMATOCRIT 29.9 % (42.0-52.0); HEMOGLOBIN 9.2 G/DL (14.2-18.0); MEAN CORPUSCULAR VOLUME 95 FL (80-99); PLATELET COUNT 134 K/UL (150-450); RED BLOOD COUNT 3.15 M/UL (4.70-6.10); RED CELL DISTRIBUTION WIDTH 14.6 % (11.6-14.8); WHITE BLOOD COUNT 11.6 K/UL (4.8-10.8)
--- NOTE | 2018-12-30 05:00 | Progress Note ---
DATE: 12/29/2018 CARDIOLOGY PROGRESS NOTE SUBJECTIVE: The patient's blood pressure parameters have increased. He is not eating well. He has been on IV fluids. He continues to have signs of increasing pulmonary venous congestion and edema. OBJECTIVE: VITAL SIGNS: Blood pressure 160/76, heart rate 78, respirations 18, diminished breath sounds. LUNGS: Few rales. HEART: Regular rhythm and rate. Normal S1, S2 with a fourth heart sound. ABDOMEN: Soft. EXTREMITIES: Trace edema. IMPRESSION: 1. Hypertensive heart disease. Rising blood pressure trend. 2. Acute on chronic diastolic congestive heart failure. 3. Sepsis with shock, recovered. 4. Degenerative valve disease with regurgitation. 5. Toxic and metabolic encephalopathies, improving. 6. Failure to thrive with anorexia. 7. Electrolyte abnormalities, corrected. PLAN: 1. Diuresis x1. 2. Reassess on a daily basis. 3. Advance and titrate antihypertensive regimen. 4. Antimicrobials. 5. Respiratory hygiene. 6. Off IV fluids. 7. DVT and stress ulcer prophylaxis. 8. Steroid taper. Cody Melendez M.D. DR: KUSHAL JOB#: [id number] CC:
[2018-12-30] MEDS ORDERED: dilTIAZem HCl 25mg/5ml Inj IVP SCH (05:30)
[2018-12-30 05:53] LABS: ALANINE AMINOTRANSFERASE 25 U/L (12-78); ALBUMIN 2.2 G/DL (3.4-5.0); ALBUMIN/GLOBULIN RATIO 0.7 (1.0-2.7); ALKALINE PHOSPHATASE 72 U/L (46-116); ANION GAP -1 mmol/L (5-15); ASPARTATE AMINO TRANSFERASE 26 U/L (15-37); BILIRUBIN,TOTAL 0.4 MG/DL (0.2-1.0); BLOOD UREA NITROGEN 15 mg/dL (7-18); CALCIUM 7.3 MG/DL (8.5-10.1); CARBON DIOXIDE 39 MMOL/L (21-32); CHLORIDE 104 MMOL/L (98-107); CREATININE 0.5 MG/DL (0.55-1.30); POTASSIUM 3.5 MMOL/L (3.5-5.1); SODIUM 144 MMOL/L (136-145)
[2018-12-30] MEDS: Solu-MEDROL 40mg Inj IV SCH ×2 (06:01→17:45)
[2018-12-30 08:00] VITALS: BP 125/55
[2018-12-30] MEDS: Pantoprazole Inj IVP SCH (08:19)
[2018-12-30] MEDS: Heparin 5000 units/ml inj SUBQ SCH ×2 (08:20→20:39)
[2018-12-30] MEDS: Dakin's 0.125% Soln (Quarter Strength) 16oz TOPIC SCH ×2 (08:24→20:39)
--- NOTE | 2018-12-30 09:43 | Diagnostic Imaging Report ---
Indication: Shortness of Technique: One view of the chest Comparison: 12/25/2018 Findings: Again demonstrated is a right jugular central venous catheter. The lungs remain hyperinflated. There is increased hazy opacity at the right lung base. Again demonstrated is bilateral costophrenic angle blunting. The upper lungs are clear. The heart size is normal. There is central pulmonary arterial prominence Impression: Increased hazy opacity at the right lung base, may reflect new or increasing infiltrate Bilateral costophrenic angle blunting. This may be on the basis of scarring/COPD changes, versus small bilateral pleural effusions. This is unchanged Central pulmonary arterial prominence, may indicate pulmonary hypertension
--- NOTE | 2018-12-30 10:41 | Cardiology Report ---
APPROVED REPORT EKG Measurement Heart [id number] Atrial fibrillation with rapid ventricular response with premature ventricular or aberrantly conducted complexes Abnormal ECG
[2018-12-30 12:00] VITALS: BP 164/73
--- NOTE | 2018-12-30 15:23 | Surgery Progress Note ---
Surgery Progress Note Subjective Symptoms: other Objective Last 24 Hour Vital Signs Date Time Temp Pulse Resp B/P (MAP) Pulse Ox O2 Delivery O2 Flow Rate FiO2 12/30/18 14:39 71 24 93 Full Face 30 69 Bi-Pap 30 12/30/18 12:43 83 33 100 Full Face 30 12/30/18 12:00 2.0 12/30/18 12:00 Bi-pap 12/30/18 12:00 73 12/30/18 12:00 95.9 75 20 164/73 (103) 96 12/30/18 11:19 85 30 97 Bi-Pap 45 88 22 90 12/30/18 11:08 85 30 97 Full Face 45 12/30/18 08:15 96 Nasal Cannula 2.0 28 12/30/18 08:00 Bi-pap 12/30/18 08:00 78 12/30/18 08:00 2.0 12/30/18 08:00 97.7 75 22 125/55 (78) 100 12/30/18 07:38 104 22 100 101 20 97 12/30/18 05:30 99 116/60 12/30/18 04:00 Bi-pap 12/30/18 04:00 2.0 12/30/18 04:00 122 12/30/18 04:00 97.5 130 20 118/64 (82) 98 12/30/18 03:09 116 20 98 118 22 96 12/30/18 00:36 87 17 100 Full Face 30 12/30/18 00:00 Bi-pap 12/30/18 00:00 97.5 95 20 107/55 (72) 98 12/30/18 00:00 100 12/30/18 00:00 30 12/29/18 22:42 40 12/29/18 22:28 96 23 96 Full Face 40 97 25 99 Bi-Pap 40 12/29/18 21:30 50 12/29/18 21:15 90 29 91 Full Face 40 12/29/18 20:00 2.0 12/29/18 20:00 96.2 95 20 134/62 (86) 95 12/29/18 20:00 94 12/29/18 20:00 Nasal Cannula 2.0 12/29/18 19:24 97 20 93 94 22 91 12/29/18 19:23 94 Nasal Cannula 2.0 28 12/29/18 16:00 Nasal Cannula 2.0 12/29/18 16:00 90 12/29/18 16:00 2.0 12/29/18 16:00 95.1 88 20 154/56 (88) 100 I&O Intake and Output 12/29/18 12/30/18 19:00 07:00 Intake Total 330 ml Output Total 1100 ml 750 ml Balance -1100 ml -420 ml IV Total 330 ml Output Urine Total 1100 ml 750 ml Cardiovascular: RSR Respiratory: decreased breath sounds Abdomen: soft, present bowel sounds Extremities: no cyanosis, other Laboratory Tests Test 12/30/18 04:30 White Blood Count 11.6 K/UL (4.8-10.8) H Red Blood Count 3.15 M/UL (4.70-6.10) L Hemoglobin 9.2 G/DL (14.2-18.0) L Hematocrit 29.9 % (42.0-52.0) L Mean Corpuscular Volume 95 FL (80-99) Mean Corpuscular Hemoglobin 29.2 PG (27.0-31.0) Mean Corpuscular Hemoglobin Concent 30.8 G/DL (32.0-36.0) L Red Cell Distribution Width 14.6 % (11.6-14.8) Platelet Count 134 K/UL (150-450) L Mean Platelet Volume 8.6 FL (6.5-10.1) Neutrophils (%) (Auto) % (45.0-75.0) Lymphocytes (%) (Auto) % (20.0-45.0) Monocytes (%) (Auto) % (1.0-10.0) Eosinophils (%) (Auto) % (0.0-3.0) Basophils (%) (Auto) % (0.0-2.0) Sodium Level 144 MMOL/L (136-145) Potassium Level 3.5 MMOL/L (3.5-5.1) Chloride Level 104 MMOL/L (98-107) Carbon Dioxide Level 39 MMOL/L (21-32) H Anion Gap -1 mmol/L (5-15) L Blood Urea Nitrogen 15 mg/dL (7-18) Creatinine 0.5 MG/DL (0.55-1.30) L Estimat Glomerular Filtration Rate mL/min (>60) Glucose Level 78 MG/DL (74-106) Calcium Level 7.3 MG/DL (8.5-10.1) L Total Bilirubin 0.4 MG/DL (0.2-1.0) Aspartate Amino Transf (AST/SGOT) 26 U/L (15-37) Alanine Aminotransferase (ALT/SGPT) 25 U/L (12-78) Alkaline Phosphatase 72 U/L (46-116) Total Protein 5.5 G/DL (6.4-8.2) L Albumin 2.2 G/DL (3.4-5.0) L Globulin 3.3 g/dL Albumin/Globulin Ratio 0.7 (1.0-2.7) L Plan Problems: (1) Failure to thrive in adult Assessment & Plan: DAILY ESTIMATED NEEDS: Needs based on Wound healing, Pulmonary, Underweight/ 49.5kg 30-40 kcals/kg 5017-0082 total kcals 1.25-1.8 g protein/kg 62-89 g total protein 25-30 mL/kg 5978-4404 total fluid mLs NUTRITION DIAGNOSIS: Increased kcal/prot needs R/T underweight status, wound healing, severe COPD per MD as evidenced by pt is 73% IBW w/ BMI of 17.0, admitted w/ advanced sacral and rt elbow wounds, unstageable BL heel wounds, pending eval, currently on BIPAP, NPO. 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 Base of wound has 95% slough. 5% viable. Bone is palpable. Edges macerated. Non- blanching erythema periwound. No odor noted. Hyperpigmentation with surrounding darker skin tone without induration. Full thickness stage 4 sacral pressure injury with undermining . Base of wound has 60% slough, 40% oscar. Bone is palpable. Small amt brown exudate. Mild odor noted. Periwound darker skin tone noted. (L)7cm x (W)7.3cm x (D)2.5cm, undermining clockwise 8 -3 by 3.8cm @9o'clock. Necrotic area noted to R ischium.Periwound is intact.(L)0.4cm x (W)1.3cm. Stable dry eschar medial/lateral R foot (L)2.2cm x (W)1.5cm. periwound is intact. Black area without induration or fluctuance noted to distal/lateral R foot. (L) 1.5cm x (W)1.8cm. Stable dry eschar dorso/flexor R foot 0.4cm x (W)2.5cm. Unstageable pressure injury R heel. Base of wound is 100% necrotic . Periwound is boggy but no erythema noted (L)6.5cm x (W)7cm. Unstageable pressure injury L heel. Base of wound is 100% necrotic(L)1.5cm x (W) 2.5cm with surrounding pink epithelial bordered by hyperpigmentation(L)4cm x (W) 4.4cm. Reducible LIH Tx.Plan: Cleanse Sacral wound with Dakin's 0.125% mike. Loosely pack with Dakin's moistened kerlix. Apply Moisture Barrier Paste periwound. Cover with Optifoam drsg Twice Daily and prn. Cleanse R elbow with Dakin's 0.125% mike. Loosely pack with dakin's moist Kerlix gauze. Apply Moisture Barrier paste periwound.Cover with Optifoam drsg. Twice Daily and prn. Apply Betadine to R and L heels. Cover with Optifoam drsg. Change every 3 days and prn. Apply Betadine to necrotic areas Lateral R foot and dorso /flexor R foot. Cover each wound with Optifoam drsg every 3 days and prn. Apply Moisture Barrier paste to R ischium. Cover with Optifoam drsg. Change every 3 days and prn. Air Fluidized mattress. Reposition at least every 2hours or as tolerated. Off-load heels with pillow. Elevate R and L elbows with pillow. (4) Sepsis Assessment & Plan: leukocytosis resolved tachypnea improved CXR noted labs noted on NS cont abx IV fluids feeds and nutritional support Downgrade will monitor LIH will follow with recs (5) Respiratory failure (6) Left elbow contusion Sher Keene Dec 30, 2018 15:23
--- NOTE | 2018-12-30 15:45 | Pulmonology Progress Note ---
Assessment/Plan Assessment/Plan 1. Acute on chronic respiratory failure. 2. 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 3. Cachexia and malnutrition. 4. Atherosclerotic aortic and cardiac disease. 5. History of hypertension, now hypotensive. 6. Urinary tract infection. 7. Diastolic heart failure with edema 8. Glaucoma. 9. Prostate hypertrophy. 10. Anemia. on/off BiPAP awake, weak refuses all POs; no intake continue steroids cont EM await DPOA response re code status may need GT place NGT for now Subjective ROS Limited/Unobtainable: Yes Allergies: Coded Allergies: DORZOLAMIDE (Unverified Allergy, Unknown, 12/23/18) LISINOPRIL (Unverified Allergy, Unknown, 12/23/18) TIMOLOL (Unverified Allergy, Unknown, 12/23/18) TIOTROPIUM (Unverified Allergy, Unknown, 12/23/18) Objective Last 24 Hour Vital Signs Date Time Temp Pulse Resp B/P (MAP) Pulse Ox O2 Delivery O2 Flow Rate FiO2 12/30/18 14:39 71 24 93 Full Face 30 69 Bi-Pap 30 12/30/18 12:43 83 33 100 Full Face 30 12/30/18 12:00 2.0 12/30/18 12:00 Bi-pap 12/30/18 12:00 73 12/30/18 12:00 95.9 75 20 164/73 (103) 96 12/30/18 11:19 85 30 97 Bi-Pap 45 88 22 90 12/30/18 11:08 85 30 97 Full Face 45 12/30/18 08:15 96 Nasal Cannula 2.0 28 12/30/18 08:00 Bi-pap 12/30/18 08:00 78 12/30/18 08:00 2.0 12/30/18 08:00 97.7 75 22 125/55 (78) 100 12/30/18 07:38 104 22 100 101 20 97 12/30/18 05:30 99 116/60 12/30/18 04:00 Bi-pap 12/30/18 04:00 2.0 12/30/18 04:00 122 12/30/18 04:00 97.5 130 20 118/64 (82) 98 12/30/18 03:09 116 20 98 118 22 96 12/30/18 00:36 87 17 100 Full Face 30 12/30/18 00:00 Bi-pap 12/30/18 00:00 97.5 95 20 107/55 (72) 98 12/30/18 00:00 100 12/30/18 00:00 30 12/29/18 22:42 40 12/29/18 22:28 96 23 96 Full Face 40 97 25 99 Bi-Pap 40 12/29/18 21:30 50 12/29/18 21:15 90 29 91 Full Face 40 12/29/18 20:00 2.0 12/29/18 20:00 96.2 95 20 134/62 (86) 95 12/29/18 20:00 94 12/29/18 20:00 Nasal Cannula 2.0 12/29/18 19:24 97 20 93 94 22 91 12/29/18 19:23 94 Nasal Cannula 2.0 28 12/29/18 16:00 Nasal Cannula 2.0 12/29/18 16:00 90 12/29/18 16:00 2.0 12/29/18 16:00 95.1 88 20 154/56 (88) 100 Intake and Output 12/29/18 12/30/18 19:00 07:00 Intake Total 330 ml Output Total 1100 ml 750 ml Balance -1100 ml -420 ml IV Total 330 ml Output Urine Total 1100 ml 750 ml General Appearance: cachetic Respiratory/Chest: decreased breath sounds Cardiovascular: normal rate Abdomen: soft, non tender Laboratory Tests 12/30/18 04:30: White Blood Count 11.6H, Red Blood Count 3.15L, Hemoglobin 9.2L, Hematocrit 29.9L, Mean Corpuscular Volume 95, Mean Corpuscular Hemoglobin 29.2, Mean Corpuscular Hemoglobin Concent 30.8L, Red Cell Distribution Width 14.6, Platelet Count 134L, Mean Platelet Volume 8.6, Neutrophils (%) (Auto) , Lymphocytes (%) (Auto) , Monocytes (%) (Auto) , Eosinophils (%) (Auto) , Basophils (%) (Auto) , Sodium Level 144, Potassium Level 3.5, Chloride Level 104 , Carbon Dioxide Level 39H, Anion Gap -1L, Blood Urea Nitrogen 15, Creatinine 0.5L, Estimat Glomerular Filtration Rate , Glucose Level 78, Calcium Level 7.3L , Total Bilirubin 0.4, Aspartate Amino Transf (AST/SGOT) 26, Alanine Aminotransferase (ALT/SGPT) 25, Alkaline Phosphatase 72, Total Protein 5.5L, Albumin 2.2L, Globulin 3.3, Albumin/Globulin Ratio 0.7L Current Medications Medications (Trade) Dose Ordered Sig/Katie Route PRN Reason Start Time Stop Time Status Last Admin Dose Admin Acetaminophen (Tylenol) 650 mg Q6H PRN RECTAL Mild Pain (Pain Scale 1-3) 12/26/18 18:00 01/25/19 17:59 Amlodipine Besylate (Norvasc) 5 mg DAILY ORAL 12/29/18 14:00 01/28/19 13:59 12/29/18 14:43 Azithromycin 500 mg/Dextrose 275 ml @ 275 mls/hr Q24HRS IV 12/29/18 21:00 01/01/19 21:59 12/29/18 20:39 Bisacodyl (Dulcolax) 10 mg DAILYPRN PRN RECTAL Constipation 12/29/18 16:00 01/28/19 15:59 Ceftriaxone Sodium 1 gm/ Dextrose 55 ml @ 110 mls/hr Q24H IVPB 12/26/18 22:00 01/01/19 23:59 12/29/18 21:48 Chlorhexidine Gluconate (Radhika-Hex 2%) 1 applic DAILY@2000 TOPIC 12/26/18 20:00 01/23/19 19:59 12/29/18 20:38 Heparin Sodium (Porcine) (Heparin 5000 units/ml) 5,000 units EVERY 12 HOURS SUBQ 12/28/18 21:00 01/27/19 20:59 12/30/18 08:20 Levalbuterol HCl (Xopenex) 1.25 mg Q4HRT HHN 12/27/18 11:00 01/01/19 10:59 12/30/18 14:38 Methylprednisolone Sodium Succinate (Solu-MEDROL) 20 mg Q12H IV 12/26/18 18:00 01/22/19 21:59 12/30/18 06:01 Pantoprazole (Protonix) 40 mg DAILY IVP 12/27/18 09:00 01/23/19 08:59 12/30/18 08:19 Sodium Hypochlorite (Dakin's Quarter Strength) 1 applic EVERY 12 HOURS TOPIC 12/27/18 21:00 01/24/19 11:14 12/30/18 08:24 Tamsulosin HCl (Flomax) 0.4 mg BEDTIME ORAL 12/29/18 21:00 01/28/19 20:59 12/29/18 20:38 Eliseo Pena MD Dec 30, 2018 15:45
[2018-12-30 16:00] VITALS: BP 134/64
--- NOTE | 2018-12-30 17:24 | Diagnostic Imaging Report ---
EXAM: XR Abdomen, 2 Views CLINICAL HISTORY: NGT TECHNIQUE: Frontal view of the abdomen/pelvis with upright view of the abdomen. COMPARISON: 07/21/2006 FINDINGS: Lower thorax: Hyperinflation, otherwise unremarkable limited views of the lungs. Intraperitoneal space: No free air. Gastrointestinal tract: Unremarkable. No dilation. Bones/joints: Mild degenerative age related spine findings. Soft tissues: Right abdominal surgical clips. Tubes, lines and devices: NG tube tip and proximal side port below the gastroesophageal junction in the gastric body. Other findings: Incompletely visualized abdominal structures. If there is concern for abdominal pathology, consider additional imaging. IMPRESSION: 1. NG tube tip and proximal side port below the gastroesophageal junction in the gastric body. 2. Hyperinflation, otherwise unremarkable limited views of the lungs. 3. Incompletely visualized abdominal structures. If there is concern for abdominal pathology, consider additional imaging.
[2018-12-30 20:00] VITALS: BP 136/64
[2018-12-30] MEDS: Tamsulosin 0.4mg cap ORAL SCH (20:39)
[2018-12-30] MEDS: Dyna-Hex 2% Top Sol 2oz TOPIC SCH (20:39)
[2018-12-30] MEDS: Azithromycin 500 MG in D5W 275 ML IV SCH (20:41)
[2018-12-30] MEDS: cefTRIAXone 1 GM in D5W 55 ML IVPB SCH (22:32)
[2018-12-30] MEDS: dilTIAZem HCl 60mg tab GT SCH (23:26)
[2018-12-31] VITALS: BP 120/62
--- NOTE | 2018-12-31 00:01 | Progress Note ---
DATE: 12/30/2018 CARDIOLOGY PROGRESS NOTE SUBJECTIVE: The patient developed rapid atrial fibrillation this morning. Subsequently, he converted to sinus rhythm. OBJECTIVE: VITAL SIGNS: Blood pressure 125/55 to 164/73, heart rate 75, respiratory rate 20, and afebrile. Periodically on BiPAP. LUNGS: Diminished breath sounds. HEART: Regular rhythm and rate. Normal S1 and S2. A 1/6 systolic murmur at apex. ABDOMEN: Soft. EXTREMITIES: No edema. LABORATORY DATA: White count 11.6 and hemoglobin 9.2. Potassium 3.5, BUN 15, and creatinine 0.5. IMPRESSION: 1. Paroxysmal atrial fibrillation. 2. Recovered shock due to sepsis. 3. Acute on chronic diastolic congestive heart failure. 4. Dysphagia. 5. Respiratory failure. PLAN: 1. Cardiac monitoring. 2. Additional diltiazem. 3. Should recurring atrial fibrillation be noted and rapid ventricular rate seen, replace amlodipine with diltiazem for suppression of atrial arrhythmias and continued blood pressure control. 4. Additional potassium replacement. 5. Antibiotics. 6. Respiratory hygiene. 7. Cautious use of beta agonist. Cody Melendez M.D. DR: Dee JOB#: [id number] CC:
[2018-12-31] MEDS: Levalbuterol Inh UD 1.25mg/0.5ml HHN SCH ×6 (02:45→23:17)
[2018-12-31 04:00] VITALS: BP 140/56
[2018-12-31] MEDS: dilTIAZem HCl 60mg tab GT SCH ×3 (05:17→17:02)
[2018-12-31] MEDS: Solu-MEDROL 40mg Inj IV SCH ×2 (05:17→17:03)
[2018-12-31 05:52] LABS: HEMATOCRIT 42.9 % (42.0-52.0); HEMOGLOBIN 13.2 G/DL (14.2-18.0); MEAN CORPUSCULAR VOLUME 95 FL (80-99); PLATELET COUNT 78 K/UL (150-450); RED BLOOD COUNT 4.51 M/UL (4.70-6.10); RED CELL DISTRIBUTION WIDTH 15.2 % (11.6-14.8); WHITE BLOOD COUNT 5.8 K/UL (4.8-10.8)
[2018-12-31 06:20] LABS: ALANINE AMINOTRANSFERASE 26 U/L (12-78); ALBUMIN 2.1 G/DL (3.4-5.0); ALBUMIN/GLOBULIN RATIO 0.7 (1.0-2.7); ALKALINE PHOSPHATASE 72 U/L (46-116); ANION GAP 1 mmol/L (5-15); ASPARTATE AMINO TRANSFERASE 24 U/L (15-37); BILIRUBIN,TOTAL 0.4 MG/DL (0.2-1.0); BLOOD UREA NITROGEN 13 mg/dL (7-18); CALCIUM 7.6 MG/DL (8.5-10.1); CHLORIDE 102 MMOL/L (98-107); CREATININE 0.5 MG/DL (0.55-1.30); POTASSIUM 3.7 MMOL/L (3.5-5.1); SODIUM 145 MMOL/L (136-145)
[2018-12-31 06:37] LABS: CARBON DIOXIDE 42 MMOL/L (21-32)
[2018-12-31 08:00] VITALS: BP 135/54
[2018-12-31] MEDS: Pantoprazole Inj IVP SCH (08:35)
[2018-12-31] MEDS: Dakin's 0.125% Soln (Quarter Strength) 16oz TOPIC SCH ×2 (08:35→21:17)
[2018-12-31] MEDS: Heparin 5000 units/ml inj SUBQ SCH ×2 (08:35→21:00)
[2018-12-31] MEDS ORDERED: NS 275ml ONE (10:07)
[2018-12-31] MEDS ORDERED: Tubing IV Secondary IV ONE (10:07)
[2018-12-31 12:00] VITALS: BP 121/88
--- NOTE | 2018-12-31 12:40 | Surgery Progress Note ---
Surgery Progress Note Subjective Additional Comments labs noted. ng tube in place. respiratory not doing so well. awaiting family for code status ill appearing and prognosis guarded Objective Last 24 Hour Vital Signs Date Time Temp Pulse Resp B/P (MAP) Pulse Ox O2 Delivery O2 Flow Rate FiO2 12/31/18 11:03 72 18 100 Nasal Cannula 3.0 32 70 16 98 12/31/18 08:00 97.8 70 16 135/54 (81) 100 12/31/18 08:00 2.0 12/31/18 08:00 64 12/31/18 08:00 Bi-pap 12/31/18 07:51 69 18 100 Nasal Cannula 3.0 32 66 20 98 12/31/18 07:50 100 Nasal Cannula 2.0 28 12/31/18 05:17 73 137/57 12/31/18 04:00 65 12/31/18 04:00 2.0 12/31/18 04:00 97.8 67 16 140/56 (84) 97 12/31/18 04:00 Bi-pap 12/31/18 02:46 70 16 100 Bi-Pap 30 65 16 96 12/31/18 02:45 65 16 96 Facial 30 12/31/18 00:34 59 13 95 Facial 30 12/31/18 00:00 Bi-pap 12/31/18 00:00 35 12/31/18 00:00 72 12/31/18 00:00 97.4 68 15 120/62 (81) 95 12/30/18 23:26 70 128/63 12/30/18 22:41 69 12 100 Bi-Pap 30 75 12 100 12/30/18 22:40 72 12 99 Facial 30 12/30/18 21:11 70 22 96 Facial 30 12/30/18 21:00 40 12/30/18 20:00 76 12/30/18 20:00 2.0 12/30/18 20:00 Bi-pap 12/30/18 20:00 96.3 81 22 136/64 (88) 100 12/30/18 19:08 80 22 100 Nasal Cannula 3.0 32 77 22 100 12/30/18 19:01 100 Nasal Cannula 2.0 28 12/30/18 16:13 68 12/30/18 16:00 Bi-pap 12/30/18 16:00 95.5 76 24 134/64 (87) 100 12/30/18 16:00 2.0 12/30/18 14:39 71 24 93 Full Face 30 69 Bi-Pap 30 12/30/18 12:43 83 33 100 Full Face 30 I&O Intake and Output 12/30/18 12/31/18 19:00 07:00 Intake Total 530 ml Output Total 420 ml 200 ml Balance -420 ml 330 ml Free Water 180 ml IV Total 330 ml Tube Feeding 20 ml Output Urine Total 420 ml 200 ml Dressing: other Wound: other Drains: other Cardiovascular: RSR Respiratory: decreased breath sounds Abdomen: soft, present bowel sounds, non-distended Extremities: no cyanosis, other Laboratory Tests Test 12/31/18 04:00 White Blood Count 5.8 K/UL (4.8-10.8) Red Blood Count 4.51 M/UL (4.70-6.10) L Hemoglobin 13.2 G/DL (14.2-18.0) #L Hematocrit 42.9 % (42.0-52.0) # Mean Corpuscular Volume 95 FL (80-99) Mean Corpuscular Hemoglobin 29.4 PG (27.0-31.0) Mean Corpuscular Hemoglobin Concent 30.9 G/DL (32.0-36.0) L Red Cell Distribution Width 15.2 % (11.6-14.8) H Platelet Count 78 K/UL (150-450) L Mean Platelet Volume 8.0 FL (6.5-10.1) Neutrophils (%) (Auto) % (45.0-75.0) Lymphocytes (%) (Auto) % (20.0-45.0) Monocytes (%) (Auto) % (1.0-10.0) Eosinophils (%) (Auto) % (0.0-3.0) Basophils (%) (Auto) % (0.0-2.0) Differential Total Cells Counted 100 Neutrophils % (Manual) 92 % (45-75) H Lymphocytes % (Manual) 4 % (20-45) L Monocytes % (Manual) 4 % (1-10) Eosinophils % (Manual) 0 % (0-3) Basophils % (Manual) 0 % (0-2) Band Neutrophils 0 % (0-8) Platelet Estimate Decreased L Platelet Morphology Normal Red Blood Cell Morphology Normal Sodium Level 145 MMOL/L (136-145) Potassium Level 3.7 MMOL/L (3.5-5.1) Chloride Level 102 MMOL/L (98-107) Carbon Dioxide Level 42 MMOL/L (21-32) *H Anion Gap 1 mmol/L (5-15) L Blood Urea Nitrogen 13 mg/dL (7-18) Creatinine 0.5 MG/DL (0.55-1.30) L Estimat Glomerular Filtration Rate mL/min (>60) Glucose Level 75 MG/DL (74-106) Calcium Level 7.6 MG/DL (8.5-10.1) L Magnesium Level 1.9 MG/DL (1.8-2.4) Total Bilirubin 0.4 MG/DL (0.2-1.0) Aspartate Amino Transf (AST/SGOT) 24 U/L (15-37) Alanine Aminotransferase (ALT/SGPT) 26 U/L (12-78) Alkaline Phosphatase 72 U/L (46-116) Pro-B-Type Natriuretic Peptide 1112 pg/mL (0-125) H Total Protein 5.3 G/DL (6.4-8.2) L Albumin 2.1 G/DL (3.4-5.0) L Globulin 3.2 g/dL Albumin/Globulin Ratio 0.7 (1.0-2.7) L Plan Problems: (1) Failure to thrive in adult Assessment & Plan: DAILY ESTIMATED NEEDS: Needs based on Wound healing, Pulmonary, Underweight/ 49.5kg 30-40 kcals/kg 3590-3538 total kcals 1.25-1.8 g protein/kg 62-89 g total protein 25-30 mL/kg 5301-7034 total fluid mLs NUTRITION DIAGNOSIS: Increased kcal/prot needs R/T underweight status, wound healing, severe COPD per MD as evidenced by pt is 73% IBW w/ BMI of 17.0, admitted w/ advanced sacral and rt elbow wounds, unstageable BL heel wounds, pending eval, currently on BIPAP, NPO. CURRENT DIET:NPO PO DIET RECOMMENDATIONS: WHEN SAFE FOR ORAL DIET AND OFF BIPAP -> regular/ texture per WILDLIFE BIOLOGY TECHNICIAN ENTERAL NUTRITION RECOMMENDATIONS: CONSULT RD FOR TF REC IF INDICATED AND PART OF POC ADDITIONAL RECOMMENDATIONS: * Per SNF: HT=67", SF=964ppy (as of 12/21) -> rec calibrated bedscale wt, weekly wt monitoring * WILDLIFE BIOLOGY TECHNICIAN evaluation prior to oral diet * Ensure Enlive TID w/ meals w/ oral diet * Wound healing: when able for oral meds -> add MVI w/ min x 1, Vit C 500mg BID, ZnSO4 220mg QD x 10 days -> Gaetano 1pkt BID (2) Malnutrition (3) Decubitus skin ulcer Assessment & Plan: Pt presented on admission with multiple pressure injuries. 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 Base of wound has 95% slough. 5% viable. Bone is palpable. Edges macerated. Non- blanching erythema periwound. No odor noted. Hyperpigmentation with surrounding darker skin tone without induration. Full thickness stage 4 sacral pressure injury with undermining . Base of wound has 60% slough, 40% oscar. Bone is palpable. Small amt brown exudate. Mild odor noted. Periwound darker skin tone noted. (L)7cm x (W)7.3cm x (D)2.5cm, undermining clockwise 8 -3 by 3.8cm @9o'clock. Necrotic area noted to R ischium.Periwound is intact.(L)0.4cm x (W)1.3cm. Stable dry eschar medial/lateral R foot (L)2.2cm x (W)1.5cm. periwound is intact. Black area without induration or fluctuance noted to distal/lateral R foot. (L) 1.5cm x (W)1.8cm. Stable dry eschar dorso/flexor R foot 0.4cm x (W)2.5cm. Unstageable pressure injury R heel. Base of wound is 100% necrotic . Periwound is boggy but no erythema noted (L)6.5cm x (W)7cm. Unstageable pressure injury L heel. Base of wound is 100% necrotic(L)1.5cm x (W) 2.5cm with surrounding pink epithelial bordered by hyperpigmentation(L)4cm x (W) 4.4cm. Reducible LIH Tx.Plan: Cleanse Sacral wound with Dakin's 0.125% mike. Loosely pack with Dakin's moistened kerlix. Apply Moisture Barrier Paste periwound. Cover with Optifoam drsg Twice Daily and prn. Cleanse R elbow with Dakin's 0.125% mike. Loosely pack with dakin's moist Kerlix gauze. Apply Moisture Barrier paste periwound.Cover with Optifoam drsg. Twice Daily and prn. Apply Betadine to R and L heels. Cover with Optifoam drsg. Change every 3 days and prn. Apply Betadine to necrotic areas Lateral R foot and dorso /flexor R foot. Cover each wound with Optifoam drsg every 3 days and prn. Apply Moisture Barrier paste to R ischium. Cover with Optifoam drsg. Change every 3 days and prn. Air Fluidized mattress. Reposition at least every 2hours or as tolerated. Off-load heels with pillow. Elevate R and L elbows with pillow. (4) Sepsis Assessment & Plan: leukocytosis resolved tachypnea improved CXR noted labs noted respiratory may not do well cont abx IV fluids feeds and nutritional support will monitor LIH will follow with recs (5) Respiratory failure (6) Left elbow contusion Sher Keene Dec 31, 2018 12:40
[2018-12-31 15:53] VITALS: BP_SYST 127; BP_SYST 169; BP_DIAS 64; BP_DIAS 66
--- NOTE | 2018-12-31 19:28 | Pulmonology Progress Note ---
Assessment/Plan Assessment/Plan 1. Acute on chronic respiratory failure. 2. 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 3. Cachexia and malnutrition. 4. Atherosclerotic aortic and cardiac disease. 5. History of hypertension, now hypotensive. 6. Urinary tract infection. 7. Diastolic heart failure with edema 8. Glaucoma. 9. Prostate hypertrophy. 10. Anemia. on/off BiPAP more confused refuses all POs; tolerating NGT feeds, may need GT continue steroids cont EM await DPOA response re code status Subjective ROS Limited/Unobtainable: Yes Allergies: Coded Allergies: DORZOLAMIDE (Unverified Allergy, Unknown, 12/23/18) LISINOPRIL (Unverified Allergy, Unknown, 12/23/18) TIMOLOL (Unverified Allergy, Unknown, 12/23/18) TIOTROPIUM (Unverified Allergy, Unknown, 12/23/18) Subjective obtunded on o2 toelrating ngt feeds no fmaily at bedside no reports of cp nv or bleeding Objective Last 24 Hour Vital Signs Date Time Temp Pulse Resp B/P (MAP) Pulse Ox O2 Delivery O2 Flow Rate FiO2 12/31/18 17:02 76 127/64 12/31/18 16:00 Bi-pap 12/31/18 16:00 76 12/31/18 16:00 2.0 12/31/18 15:53 97.3 98 22 127/64 (85) 100 12/31/18 15:28 94 22 95 Nasal Cannula 3.0 32 69 20 97 12/31/18 13:05 72 135/54 12/31/18 12:00 Bi-pap 12/31/18 12:00 60 12/31/18 12:00 2.0 12/31/18 12:00 97.9 77 16 121/88 (99) 100 12/31/18 11:03 72 18 100 Nasal Cannula 3.0 32 70 16 98 12/31/18 08:00 97.8 70 16 135/54 (81) 100 12/31/18 08:00 2.0 12/31/18 08:00 64 12/31/18 08:00 Bi-pap 12/31/18 07:51 69 18 100 Nasal Cannula 3.0 32 66 20 98 12/31/18 07:50 100 Nasal Cannula 2.0 28 12/31/18 05:17 73 137/57 12/31/18 04:00 65 12/31/18 04:00 2.0 12/31/18 04:00 97.8 67 16 140/56 (84) 97 12/31/18 04:00 Bi-pap 12/31/18 02:46 70 16 100 Bi-Pap 30 65 16 96 12/31/18 02:45 65 16 96 Facial 30 12/31/18 00:34 59 13 95 Facial 30 12/31/18 00:00 Bi-pap 12/31/18 00:00 35 12/31/18 00:00 72 12/31/18 00:00 97.4 68 15 120/62 (81) 95 12/30/18 23:26 70 128/63 12/30/18 22:41 69 12 100 Bi-Pap 30 75 12 100 12/30/18 22:40 72 12 99 Facial 30 12/30/18 21:11 70 22 96 Facial 30 12/30/18 21:00 40 12/30/18 20:00 76 12/30/18 20:00 2.0 12/30/18 20:00 Bi-pap 12/30/18 20:00 96.3 81 22 136/64 (88) 100 Intake and Output 12/30/18 12/31/18 19:00 07:00 Intake Total 530 ml Output Total 420 ml 200 ml Balance -420 ml 330 ml Free Water 180 ml IV Total 330 ml Tube Feeding 20 ml Output Urine Total 420 ml 200 ml General Appearance: cachetic Respiratory/Chest: rhonchi Cardiovascular: normal rate, regular rhythm, murmur systolic Abdomen: soft, non tender, no organomegaly Neurologic/Psychiatric: disoriented Laboratory Tests 12/31/18 04:00: White Blood Count 5.8, Red Blood Count 4.51L, Hemoglobin 13.2#L, Hematocrit 42.9 #, Mean Corpuscular Volume 95, Mean Corpuscular Hemoglobin 29.4, Mean Corpuscular Hemoglobin Concent 30.9L, Red Cell Distribution Width 15.2H, Platelet Count 78L, Mean Platelet Volume 8.0, Neutrophils (%) (Auto) , Lymphocytes (%) (Auto) , Monocytes (%) (Auto) , Eosinophils (%) (Auto) , Basophils (%) (Auto) , Differential Total Cells Counted 100, Neutrophils % ( Manual) 92H, Lymphocytes % (Manual) 4L, Monocytes % (Manual) 4, Eosinophils % ( Manual) 0, Basophils % (Manual) 0, Band Neutrophils 0, Platelet Estimate DecreasedL, Platelet Morphology Normal, Red Blood Cell Morphology Normal, Sodium Level 145, Potassium Level 3.7, Chloride Level 102, Carbon Dioxide Level 42*H, Anion Gap 1L, Blood Urea Nitrogen 13, Creatinine 0.5L, Estimat Glomerular Filtration Rate , Glucose Level 75, Calcium Level 7.6L, Magnesium Level 1.9, Total Bilirubin 0.4, Aspartate Amino Transf (AST/SGOT) 24, Alanine Aminotransferase (ALT/SGPT) 26, Alkaline Phosphatase 72, Pro-B-Type Natriuretic Peptide 1112H, Total Protein 5.3L, Albumin 2.1L, Globulin 3.2, Albumin/Globulin Ratio 0.7L Current Medications Medications (Trade) Dose Ordered Sig/Katie Route PRN Reason Start Time Stop Time Status Last Admin Dose Admin Acetaminophen (Tylenol) 650 mg Q6H PRN RECTAL Mild Pain (Pain Scale 1-3) 12/26/18 18:00 01/25/19 17:59 Azithromycin 500 mg/Dextrose 275 ml @ 275 mls/hr Q24HRS IV 12/29/18 21:00 01/01/19 21:59 12/30/18 20:41 Bisacodyl (Dulcolax) 10 mg DAILYPRN PRN RECTAL Constipation 12/29/18 16:00 01/28/19 15:59 Ceftriaxone Sodium 1 gm/ Dextrose 55 ml @ 110 mls/hr Q24H IVPB 12/26/18 22:00 01/01/19 23:59 12/30/18 22:32 Chlorhexidine Gluconate (Radhika-Hex 2%) 1 applic DAILY@2000 TOPIC 12/26/18 20:00 01/23/19 19:59 12/30/18 20:39 Diltiazem HCl (Cardizem) 60 mg EVERY 6 HOURS GT 12/31/18 00:00 01/30/19 00:00 12/31/18 17:02 Heparin Sodium (Porcine) (Heparin 5000 units/ml) 5,000 units EVERY 12 HOURS SUBQ 12/28/18 21:00 01/27/19 20:59 12/30/18 08:20 Levalbuterol HCl (Xopenex) 1.25 mg Q4HRT HHN 12/27/18 11:00 01/01/19 10:59 12/31/18 19:23 Methylprednisolone Sodium Succinate (Solu-MEDROL) 20 mg Q12H IV 12/26/18 18:00 01/22/19 21:59 12/31/18 17:03 Pantoprazole (Protonix) 40 mg DAILY IVP 12/27/18 09:00 01/23/19 08:59 12/31/18 08:35 Sodium Hypochlorite (Dakin's Quarter Strength) 1 applic EVERY 12 HOURS TOPIC 12/27/18 21:00 01/24/19 11:14 12/31/18 08:35 Tamsulosin HCl (Flomax) 0.4 mg BEDTIME ORAL 12/29/18 21:00 01/28/19 20:59 12/30/18 20:39 Emma Ramesh DO Dec 31, 2018 19:28
[2018-12-31 20:00] VITALS: BP 124/43
[2018-12-31] MEDS: Dyna-Hex 2% Top Sol 2oz TOPIC SCH (20:00)
[2018-12-31] MEDS: Azithromycin 500 MG in D5W 275 ML IV SCH (21:13)
[2018-12-31] MEDS: Tamsulosin 0.4mg cap ORAL SCH (21:14)
[2018-12-31] MEDS: cefTRIAXone 1 GM in D5W 55 ML IVPB SCH (22:50)
[2019-01-01] VITALS (15 sets, daily range): BP systolic 84–134; BP diastolic 43–69
[2019-01-01] MEDS: Levalbuterol Inh UD 1.25mg/0.5ml HHN SCH ×2 (03:16→07:03)
[2019-01-01] MEDS: dilTIAZem HCl 60mg tab GT SCH ×4 (06:00→22:00)
[2019-01-01] MEDS: Solu-MEDROL 40mg Inj IV SCH ×2 (06:36→17:54)
--- NOTE | 2019-01-01 07:55 | Pulmonology Progress Note ---
Assessment/Plan Assessment/Plan 1. Acute on chronic respiratory failure. 2. 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 3. Cachexia and malnutrition. 4. Atherosclerotic aortic and cardiac disease. 5. History of hypertension, now hypotensive. 6. Urinary tract infection. 7. Diastolic heart failure with edema 8. Glaucoma. 9. Prostate hypertrophy. 10. Anemia. 11. ? RLL PNA Plan More agonal this am stat abg and cxr orders along with labs TF on hold will attempt to reach family again refuses all POs; tolerating NGT feeds, may need GT continue steroids continue abx no new cultures to report last cxr 12/30 reviewed may need intubation today Subjective ROS Limited/Unobtainable: Yes Allergies: Coded Allergies: DORZOLAMIDE (Unverified Allergy, Unknown, 12/23/18) LISINOPRIL (Unverified Allergy, Unknown, 12/23/18) TIMOLOL (Unverified Allergy, Unknown, 12/23/18) TIOTROPIUM (Unverified Allergy, Unknown, 12/23/18) Subjective obtunded onbipap over night now on NC somewhat agonal abg cxr ordered on o2 tf on hold no fmaily at bedside no reports of cp nv or bleeding family called back last night and states pt is full code Objective Last 24 Hour Vital Signs Date Time Temp Pulse Resp B/P (MAP) Pulse Ox O2 Delivery O2 Flow Rate FiO2 01/01/19 07:07 100 Nasal Cannula 3.0 32 01/01/19 07:07 65 18 100 Nasal Cannula 3.0 32 61 16 100 01/01/19 06:00 56 113/44 01/01/19 05:00 53 12 98 Facial 100 01/01/19 04:00 40 01/01/19 04:00 Bi-pap 01/01/19 04:00 98.0 76 12 113/44 (67) 100 01/01/19 03:50 63 01/01/19 03:16 56 16 100 Facial 30 67 18 100 Bi-Pap 30 01/01/19 01:03 55 12 98 Facial 30 01/01/19 00:00 53 117/43 01/01/19 00:00 97.0 53 18 117/45 (69) 99 01/01/19 00:00 Bi-pap 12/31/18 23:42 85 12/31/18 23:30 89 16 98 Facial 30 12/31/18 23:18 81 18 100 Nasal Cannula 3.0 32 79 18 99 12/31/18 20:06 59 12/31/18 20:00 98.9 75 20 124/43 (70) 99 12/31/18 20:00 2.0 12/31/18 20:00 Bi-pap 12/31/18 19:27 100 Nasal Cannula 3.0 32 12/31/18 19:23 75 22 100 Nasal Cannula 3.0 32 75 29 100 12/31/18 17:02 76 127/64 12/31/18 16:00 Bi-pap 12/31/18 16:00 76 12/31/18 16:00 2.0 12/31/18 15:53 97.3 98 22 127/64 (85) 100 12/31/18 15:28 94 22 95 Nasal Cannula 3.0 32 69 20 97 12/31/18 13:05 72 135/54 12/31/18 12:00 Bi-pap 12/31/18 12:00 60 12/31/18 12:00 2.0 12/31/18 12:00 97.9 77 16 121/88 (99) 100 12/31/18 11:03 72 18 100 Nasal Cannula 3.0 32 70 16 98 12/31/18 08:00 97.8 70 16 135/54 (81) 100 12/31/18 08:00 2.0 12/31/18 08:00 64 12/31/18 08:00 Bi-pap 12/31/18 07:51 69 18 100 Nasal Cannula 3.0 32 66 20 98 12/31/18 07:50 100 Nasal Cannula 2.0 28 Intake and Output 12/31/18 01/01/19 18:59 06:59 Intake Total 285 ml 530 ml Output Total 420 ml 200 ml Balance -135 ml 330 ml Free Water 75 ml IV Total 330 ml Tube Feeding 210 ml 200 ml Output Urine Total 420 ml 200 ml General Appearance: cachetic Respiratory/Chest: rhonchi Cardiovascular: normal rate Abdomen: non distended Neurologic/Psychiatric: disoriented Technically difficult study due to pt's resistance . Normal left ventricular chamber size, systolic function and wall motion to extent visualized. Left ventricular ejection fraction estimated to be 60 %. No evidence of left ventricular hypertrophy. No evidence of pericardial effusion. All other cardiac chamber sizes are within normal limits. Focal aortic valve sclerosis with adequate cusp excursion. Thickened mitral valve leaflets with normal excursion. Mitral annulus and aortic root calcification. Normal pulmonic valve structure. Normal tricuspid valve structure. IVC at normal size without physiologic collapse. Current Medications Medications (Trade) Dose Ordered Sig/Katie Route PRN Reason Start Time Stop Time Status Last Admin Dose Admin Acetaminophen (Tylenol) 650 mg Q6H PRN RECTAL Mild Pain (Pain Scale 1-3) 12/26/18 18:00 01/25/19 17:59 Azithromycin 500 mg/Dextrose 275 ml @ 275 mls/hr Q24HRS IV 12/29/18 21:00 01/01/19 21:59 12/31/18 21:13 Bisacodyl (Dulcolax) 10 mg DAILYPRN PRN RECTAL Constipation 12/29/18 16:00 01/28/19 15:59 Ceftriaxone Sodium 1 gm/ Dextrose 55 ml @ 110 mls/hr Q24H IVPB 12/26/18 22:00 01/01/19 23:59 12/31/18 22:50 Chlorhexidine Gluconate (Radhika-Hex 2%) 1 applic DAILY@2000 TOPIC 12/26/18 20:00 01/23/19 19:59 12/31/18 20:00 Diltiazem HCl (Cardizem) 60 mg EVERY 6 HOURS GT 12/31/18 00:00 01/30/19 00:00 12/31/18 17:02 Heparin Sodium (Porcine) (Heparin 5000 units/ml) 5,000 units EVERY 12 HOURS SUBQ 12/28/18 21:00 01/27/19 20:59 12/30/18 08:20 Levalbuterol HCl (Xopenex) 1.25 mg Q4HRT HHN 12/27/18 11:00 01/01/19 10:59 01/01/19 07:03 Methylprednisolone Sodium Succinate (Solu-MEDROL) 20 mg Q12H IV 12/26/18 18:00 01/22/19 21:59 01/01/19 06:36 Pantoprazole (Protonix) 40 mg DAILY IVP 12/27/18 09:00 01/23/19 08:59 12/31/18 08:35 Sodium Hypochlorite (Dakin's Quarter Strength) 1 applic EVERY 12 HOURS TOPIC 12/27/18 21:00 01/24/19 11:14 12/31/18 21:17 Tamsulosin HCl (Flomax) 0.4 mg BEDTIME ORAL 12/29/18 21:00 01/28/19 20:59 12/31/18 21:14 Emma Ramesh DO Jan 01, 2019 07:55
--- NOTE | 2019-01-01 09:03 | Diagnostic Imaging Report ---
EXAM: XR Chest, 1 View CLINICAL HISTORY: Shortness of breath TECHNIQUE: Frontal view of the chest. COMPARISON: Chest x-rays dated 12/30/18, 12/25/18 FINDINGS: Lungs: Subsegmental atelectasis versus infiltrates in bilateral lung bases. No new consolidation seen. Pleural space: Persistent mild blunting of bilateral costophrenic angles, suggesting small bilateral effusions versus pleural thickening. Heart: Unremarkable. No cardiomegaly. Mediastinum: Unremarkable. Bones/joints: Unremarkable. Vasculature: Atherosclerotic calcifications are noted within the aortic arch. Tubes, lines and devices: Stable appearance of a right IJ-approach central venous catheter with the tip at the SVC/right atrial junction. Telemetry leads overlie the thorax. IMPRESSION: No send thickening or change from the prior exam. Persistent atelectasis versus infiltrate in the right lung base, and possible small bilateral pleural effusions.
[2019-01-01 09:12] LABS: HEMOGLOBIN 9.4 G/DL (14.2-18.0); MEAN CORPUSCULAR VOLUME 98 FL (80-99); PLATELET COUNT 113 K/UL (150-450); RED BLOOD COUNT 3.26 M/UL (4.70-6.10); WHITE BLOOD COUNT 17.4 K/UL (4.8-10.8)
[2019-01-01] MEDS: Pantoprazole Inj IVP SCH (09:38)
[2019-01-01] MEDS: Dakin's 0.125% Soln (Quarter Strength) 16oz TOPIC SCH ×2 (09:39→20:55)
[2019-01-01] MEDS: Heparin 5000 units/ml inj SUBQ SCH ×2 (09:42→21:00)
[2019-01-01 09:53] LABS: ALANINE AMINOTRANSFERASE 25 U/L (12-78); ALBUMIN 2.2 G/DL (3.4-5.0); ALBUMIN/GLOBULIN RATIO 0.7 (1.0-2.7); ALKALINE PHOSPHATASE 78 U/L (46-116); ASPARTATE AMINO TRANSFERASE 16 U/L (15-37); BILIRUBIN,TOTAL 0.3 MG/DL (0.2-1.0); BLOOD UREA NITROGEN 13 mg/dL (7-18); CALCIUM 7.9 MG/DL (8.5-10.1); CHLORIDE 103 MMOL/L (98-107); CREATININE 0.5 MG/DL (0.55-1.30); POTASSIUM 4.2 MMOL/L (3.5-5.1); SODIUM 147 MMOL/L (136-145)
[2019-01-01 09:58] LABS: CARBON DIOXIDE > 45 MMOL/L (21-32)
--- NOTE | 2019-01-01 11:46 | Surgery Progress Note ---
Surgery Progress Note Subjective Additional Comments respiratory declining acidosis leukocytosis cxr noted on bipap per report family wants full code and intubation if necessary likely will need intubation soon TF on hold Objective Last 24 Hour Vital Signs Date Time Temp Pulse Resp B/P (MAP) Pulse Ox O2 Delivery O2 Flow Rate FiO2 01/01/19 11:03 46 12 100 Facial 50 01/01/19 08:52 55 12 100 Facial 50 01/01/19 08:13 57 13 98 Facial 70 01/01/19 08:00 96.3 75 24 134/45 (74) 100 01/01/19 08:00 50 01/01/19 08:00 64 01/01/19 07:07 100 Nasal Cannula 3.0 32 01/01/19 07:07 65 18 100 Nasal Cannula 3.0 32 61 16 100 01/01/19 06:00 56 113/44 01/01/19 05:00 53 12 98 Facial 100 01/01/19 04:00 40 01/01/19 04:00 Bi-pap 01/01/19 04:00 98.0 76 12 113/44 (67) 100 01/01/19 03:50 63 01/01/19 03:16 56 16 100 Facial 30 67 18 100 Bi-Pap 30 01/01/19 01:03 55 12 98 Facial 30 01/01/19 00:00 53 117/43 01/01/19 00:00 97.0 53 18 117/45 (69) 99 01/01/19 00:00 Bi-pap 12/31/18 23:42 85 12/31/18 23:30 89 16 98 Facial 30 12/31/18 23:18 81 18 100 Nasal Cannula 3.0 32 79 18 99 12/31/18 20:06 59 12/31/18 20:00 98.9 75 20 124/43 (70) 99 12/31/18 20:00 2.0 12/31/18 20:00 Bi-pap 12/31/18 19:27 100 Nasal Cannula 3.0 32 12/31/18 19:23 75 22 100 Nasal Cannula 3.0 32 75 29 100 12/31/18 17:02 76 127/64 12/31/18 16:00 Bi-pap 12/31/18 16:00 76 12/31/18 16:00 2.0 12/31/18 15:53 97.3 98 22 127/64 (85) 100 12/31/18 15:28 94 22 95 Nasal Cannula 3.0 32 69 20 97 12/31/18 13:05 72 135/54 12/31/18 12:00 Bi-pap 12/31/18 12:00 60 12/31/18 12:00 2.0 12/31/18 12:00 97.9 77 16 121/88 (99) 100 I&O Intake and Output 12/31/18 01/01/19 18:59 06:59 Intake Total 285 ml 530 ml Output Total 420 ml 200 ml Balance -135 ml 330 ml Free Water 75 ml IV Total 330 ml Tube Feeding 210 ml 200 ml Output Urine Total 420 ml 200 ml Dressing: other Wound: other Drains: other Cardiovascular: RSR Respiratory: decreased breath sounds Abdomen: soft, present bowel sounds, non-distended Extremities: no cyanosis, other Laboratory Tests Test 01/01/19 07:55 01/01/19 08:50 01/01/19 10:35 Arterial Blood pH 7.282 (7.350-7.450) 7.304 (7.350-7.450) Arterial Blood Partial Pressure CO2 96.8 mmHg (35.0-45.0) *H 99.1 mmHg (35.0-45.0) *H Arterial Blood Partial Pressure O2 < 45.3 mmHg (75.0-100.0) 84.7 mmHg (75.0-100.0) Arterial Blood HCO3 44.7 mmol/L (22.0-26.0) *H 48.1 mmol/L (22.0-26.0) *H Arterial Blood Oxygen Saturation 76.8 % (95-100) *L 96.0 % (95-100) Arterial Blood Base Excess 14.5 (-2-2) *H 18.3 (-2-2) *H Samuel Test Positive Positive White Blood Count 17.4 K/UL (4.8-10.8) #H Red Blood Count 3.26 M/UL (4.70-6.10) L Hemoglobin 9.4 G/DL (14.2-18.0) L Hematocrit 32.0 % (42.0-52.0) L Mean Corpuscular Volume 98 FL (80-99) Mean Corpuscular Hemoglobin 29.0 PG (27.0-31.0) Mean Corpuscular Hemoglobin Concent 29.5 G/DL (32.0-36.0) L Red Cell Distribution Width 15.0 % (11.6-14.8) H Platelet Count 113 K/UL (150-450) L Mean Platelet Volume 8.6 FL (6.5-10.1) Neutrophils (%) (Auto) % (45.0-75.0) Lymphocytes (%) (Auto) % (20.0-45.0) Monocytes (%) (Auto) % (1.0-10.0) Eosinophils (%) (Auto) % (0.0-3.0) Basophils (%) (Auto) % (0.0-2.0) Differential Total Cells Counted 100 Neutrophils % (Manual) 92 % (45-75) H Lymphocytes % (Manual) 3 % (20-45) L Monocytes % (Manual) 5 % (1-10) Eosinophils % (Manual) 0 % (0-3) Basophils % (Manual) 0 % (0-2) Band Neutrophils 0 % (0-8) Platelet Estimate Decreased L Platelet Morphology Normal Anisocytosis 1+ Sodium Level 147 MMOL/L (136-145) H Potassium Level 4.2 MMOL/L (3.5-5.1) Chloride Level 103 MMOL/L (98-107) Carbon Dioxide Level > 45 MMOL/L (21-32) *H Blood Urea Nitrogen 13 mg/dL (7-18) Creatinine 0.5 MG/DL (0.55-1.30) L Estimat Glomerular Filtration Rate mL/min (>60) Glucose Level 223 MG/DL (74-106) #H Calcium Level 7.9 MG/DL (8.5-10.1) L Total Bilirubin 0.3 MG/DL (0.2-1.0) Aspartate Amino Transf (AST/SGOT) 16 U/L (15-37) Alanine Aminotransferase (ALT/SGPT) 25 U/L (12-78) Alkaline Phosphatase 78 U/L (46-116) Total Protein 5.5 G/DL (6.4-8.2) L Albumin 2.2 G/DL (3.4-5.0) L Globulin 3.3 g/dL Albumin/Globulin Ratio 0.7 (1.0-2.7) L Plan Problems: (1) Failure to thrive in adult Assessment & Plan: DAILY ESTIMATED NEEDS: Needs based on Wound healing, Pulmonary, Underweight/ 49.5kg 30-40 kcals/kg [id number] total kcals 1.25-1.8 g protein/kg 62-89 g total protein 25-30 mL/kg 1511-7202 total fluid mLs NUTRITION DIAGNOSIS: Increased kcal/prot needs R/T underweight status, wound healing, severe COPD per MD as evidenced by pt is 73% IBW w/ BMI of 17.0, admitted w/ advanced sacral and rt elbow wounds, unstageable BL heel wounds, pending eval, currently on BIPAP, NPO. CURRENT DIET:NPO PO DIET RECOMMENDATIONS: WHEN SAFE FOR ORAL DIET AND OFF BIPAP -> regular/ texture per [employer] ENTERAL NUTRITION RECOMMENDATIONS: CONSULT RD FOR TF REC IF INDICATED AND PART OF POC ADDITIONAL RECOMMENDATIONS: * Per SNF: HT=67", RR=627wyd (as of 12/21) -> rec calibrated bedscale wt, weekly wt monitoring * [employer] evaluation prior to oral diet * Ensure Enlive TID w/ meals w/ oral diet * Wound healing: when able for oral meds -> add MVI w/ min x 1, Vit C 500mg BID, ZnSO4 220mg QD x 10 days -> Gaetano 1pkt BID (2) Malnutrition (3) Decubitus skin ulcer Assessment & Plan: Pt presented on admission with multiple pressure injuries. 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 Base of wound has 95% slough. 5% viable. Bone is palpable. Edges macerated. Non- blanching erythema periwound. No odor noted. Hyperpigmentation with surrounding darker skin tone without induration. Full thickness stage 4 sacral pressure injury with undermining . Base of wound has 60% slough, 40% oscar. Bone is palpable. Small amt brown exudate. Mild odor noted. Periwound darker skin tone noted. (L)7cm x (W)7.3cm x (D)2.5cm, undermining clockwise 8 -3 by 3.8cm @9o'clock. Necrotic area noted to R ischium.Periwound is intact.(L)0.4cm x (W)1.3cm. Stable dry eschar medial/lateral R foot (L)2.2cm x (W)1.5cm. periwound is intact. Black area without induration or fluctuance noted to distal/lateral R foot. (L) 1.5cm x (W)1.8cm. Stable dry eschar dorso/flexor R foot 0.4cm x (W)2.5cm. Unstageable pressure injury R heel. Base of wound is 100% necrotic . Periwound is boggy but no erythema noted (L)6.5cm x (W)7cm. Unstageable pressure injury L heel. Base of wound is 100% necrotic(L)1.5cm x (W) 2.5cm with surrounding pink epithelial bordered by hyperpigmentation(L)4cm x (W) 4.4cm. Reducible LIH Tx.Plan: Cleanse Sacral wound with Dakin's 0.125% mike. Loosely pack with Dakin's moistened kerlix. Apply Moisture Barrier Paste periwound. Cover with Optifoam drsg Twice Daily and prn. Cleanse R elbow with Dakin's 0.125% mike. Loosely pack with dakin's moist Kerlix gauze. Apply Moisture Barrier paste periwound.Cover with Optifoam drsg. Twice Daily and prn. Apply Betadine to R and L heels. Cover with Optifoam drsg. Change every 3 days and prn. Apply Betadine to necrotic areas Lateral R foot and dorso /flexor R foot. Cover each wound with Optifoam drsg every 3 days and prn. Apply Moisture Barrier paste to R ischium. Cover with Optifoam drsg. Change every 3 days and prn. Air Fluidized mattress. Reposition at least every 2hours or as tolerated. Off-load heels with pillow. Elevate R and L elbows with pillow. (4) Sepsis Assessment & Plan: leukocytosis tachypnea improved CXR noted labs noted respiratory decline intubate? candidate for early trach cont abx IV fluids feeds and nutritional support will monitor LIH will follow with recs (5) Respiratory failure (6) Left elbow contusion Sher Keene Jan 01, 2019 11:46
[2019-01-01] MEDS ORDERED: Acetaminophen 650 MG SUPP RECTAL PRN (13:51)
[2019-01-01] MEDS ORDERED: dilTIAZem HCl 60mg tab GT SCH (18:00)
[2019-01-01] MEDS: Dyna-Hex 2% Top Sol 2oz TOPIC SCH (20:07)
[2019-01-01] MEDS ORDERED: Azithromycin 500 MG in D5W 275 ML IV SCH (21:00)
[2019-01-01] MEDS: Tamsulosin 0.4mg cap ORAL SCH (21:00)
--- NOTE | 2019-01-01 21:03 | Progress Note ---
DATE: 01/01/2019 CARDIOLOGY PROGRESS NOTE SUBJECTIVE: The patient has not had any recurring atrial fibrillation. There were some episodes of sinus bradycardia. Continues to require BiPAP intermittently and has had episodes of agonal breathing. OBJECTIVE: VITAL SIGNS: Blood pressure 113/44, pulse 56, respirations 18. CHEST: Diminished breath sounds. CARDIAC: Regular rhythm and rate. Normal S1, S2. ABDOMEN: Soft. EXTREMITIES: Trace edema. LABORATORY DATA: Sodium 147, potassium 4.2, bicarb 45, BUN 13, creatinine 0.5. Albumin 3.2. ABG 7.36, 77, 104. White count 17, hemoglobin 9.4. IMPRESSION: 1. Respiratory failure. 2. Acute on chronic respiratory acidosis. 3. Anemia. 4. Sepsis. 5. Paroxysmal atrial fibrillation. 6. Contraction and compensatory alkalosis. 7. Dehydration. 8. Hypernatremia. 9. Metabolic encephalopathy. PLAN: 1. Decrease diltiazem dose. 2. Hypotonic IV fluid hydration. 3. Antimicrobials. 4. Respiratory hygiene. 5. BiPAP support. 6. Very high risk for decompensation. 7. Monitor metabolic parameters closely. Cody Melendez M.D. DR: TONJA JOB#: [id number] CC:
[2019-01-01] MEDS ORDERED: cefTRIAXone 1 GM in D5W 55 ML IVPB SCH (22:00)
--- NOTE | 2019-01-01 22:00 | Progress Note ---
DATE: 12/31/2018 CARDIOLOGY PROGRESS NOTE SUBJECTIVE: The patient has no distress. No complaints. He is somewhat obtunded. He has not had any recurring atrial fibrillation, remaining now in sinus rhythm. PHYSICAL EXAMINATION: VITAL SIGNS: Blood pressure 127/64, pulse 98, respirations 22. There were some episodes of sinus bradycardia. LUNGS: Diminished breath sounds. Scattered rhonchi. HEART: Regular rhythm and rate. Normal S1, S2. ABDOMEN: Soft. EXTREMITIES: No edema. IMPRESSION: 1. Metabolic and toxic encephalopathies. 2. Respiratory failure. 3. Acute on chronic respiratory acidosis. 4. Paroxysmal atrial fibrillation. 5. COPD. 6. Acute cardiovascular disease. 7. Sepsis. 8. Metabolic alkalosis due to compensation. PLAN: 1. Respiratory support. 2. Bronchodilators. 3. Antimicrobials. 4. NG-tube feedings. 5. Hold diuresis. 6. Volume support. 7. DVT prophylaxis. 8. Dose adjusted diltiazem. Cody Melendez M.D. DR: TONJA JOB#: [id number] CC:
[2019-01-02] VITALS (24 sets, daily range): BP systolic 110–148; BP diastolic 43–78
[2019-01-02 04:55] LABS: HEMATOCRIT 30.5 % (42.0-52.0); HEMOGLOBIN 9.4 G/DL (14.2-18.0); MEAN CORPUSCULAR VOLUME 95 FL (80-99); PLATELET COUNT 115 K/UL (150-450); RED BLOOD COUNT 3.21 M/UL (4.70-6.10); RED CELL DISTRIBUTION WIDTH 14.5 % (11.6-14.8); WHITE BLOOD COUNT 16.7 K/UL (4.8-10.8)
[2019-01-02 05:18] LABS: ALANINE AMINOTRANSFERASE 22 U/L (12-78); ALBUMIN 2.2 G/DL (3.4-5.0); ALBUMIN/GLOBULIN RATIO 0.7 (1.0-2.7); ALKALINE PHOSPHATASE 71 U/L (46-116); ANION GAP -2 mmol/L (5-15); ASPARTATE AMINO TRANSFERASE 16 U/L (15-37); BILIRUBIN,TOTAL 0.4 MG/DL (0.2-1.0); BLOOD UREA NITROGEN 13 mg/dL (7-18); CALCIUM 8.2 MG/DL (8.5-10.1); CHLORIDE 103 MMOL/L (98-107); CREATININE 0.4 MG/DL (0.55-1.30); POTASSIUM 4.2 MMOL/L (3.5-5.1); SODIUM 146 MMOL/L (136-145)
[2019-01-02 05:19] LABS: INR 1.2 (0.9-1.1)
[2019-01-02 05:22] LABS: CARBON DIOXIDE 45 MMOL/L (21-32)
[2019-01-02] MEDS: dilTIAZem HCl 60mg tab GT SCH ×3 (06:00→22:00)
[2019-01-02] MEDS: Solu-MEDROL 40mg Inj IV SCH ×2 (06:06→18:17)
[2019-01-02] MEDS: Heparin 5000 units/ml inj SUBQ SCH ×2 (08:23→21:00)
[2019-01-02] MEDS: Pantoprazole Inj IVP SCH (08:24)
[2019-01-02] MEDS: Dakin's 0.125% Soln (Quarter Strength) 16oz TOPIC SCH ×2 (08:24→21:12)
--- NOTE | 2019-01-02 11:19 | Diagnostic Imaging Report ---
Indication: Dyspnea Comparison: 01/01/2019 A single view chest radiograph was obtained. Findings: Lungs are hyperexpanded. There is no pleural thickening or small effusions bilaterally obscuring portions of the diaphragm. Heart size is normal. There is a right jugular line in good position. IMPRESSION: No significant change from the prior day
--- NOTE | 2019-01-02 16:52 | Pulmonology Progress Note ---
Assessment/Plan Assessment/Plan 1. Acute on chronic respiratory failure. 2. 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 3. Cachexia and malnutrition. 4. Atherosclerotic aortic and cardiac disease. 5. History of hypertension, now hypotensive. 6. Urinary tract infection. 7. Diastolic heart failure with edema 8. Glaucoma. 9. Prostate hypertrophy. 10. Anemia. He cannot survive without ventilatory support PCO2 >90 before resuming BiPAP; now 75 on BiPAP awake, weak called DPOA to clarify code status and paln will need intubation and trach or comfort measures NGT Subjective ROS Limited/Unobtainable: Yes Allergies: Coded Allergies: DORZOLAMIDE (Unverified Allergy, Unknown, 12/23/18) LISINOPRIL (Unverified Allergy, Unknown, 12/23/18) TIMOLOL (Unverified Allergy, Unknown, 12/23/18) TIOTROPIUM (Unverified Allergy, Unknown, 12/23/18) Objective Last 24 Hour Vital Signs Date Time Temp Pulse Resp B/P (MAP) Pulse Ox O2 Delivery O2 Flow Rate FiO2 01/02/19 16:47 70 28 96 Full Face 40 01/02/19 16:46 69 24 97 Bi-Pap 40 01/02/19 16:00 55 01/02/19 16:00 Bi-pap 01/02/19 16:00 97.6 66 18 114/61 (78) 87 01/02/19 15:30 78 25 99 Full Face 50 01/02/19 15:00 68 17 126/49 (74) 100 01/02/19 14:00 59 34 119/48 (71) 100 01/02/19 14:00 56 119/48 01/02/19 13:02 50 01/02/19 13:01 75 13 93 Facial 50 01/02/19 13:00 57 23 141/55 (83) 95 01/02/19 12:00 61 23 119/50 (73) 98 01/02/19 12:00 40 01/02/19 12:00 Bi-pap 01/02/19 11:48 59 01/02/19 11:09 78 19 98 Facial 40 01/02/19 11:00 67 27 148/78 (101) 98 01/02/19 10:00 58 25 124/55 (78) 100 01/02/19 09:05 60 14 100 Facial 40 01/02/19 09:00 66 21 110/49 (69) 100 01/02/19 08:00 Bi-pap 01/02/19 08:00 40 01/02/19 08:00 96.9 67 15 128/49 (75) 100 01/02/19 08:00 73 01/02/19 07:20 72 15 96 Facial 40 01/02/19 07:19 96 Bi-Pap 40 01/02/19 07:00 57 14 121/47 (71) 100 01/02/19 06:00 58 27 117/52 (73) 100 01/02/19 06:00 62 117/52 01/02/19 05:07 60 13 100 Facial 40 01/02/19 05:00 56 17 111/54 (73) 100 01/02/19 05:00 40 01/02/19 04:00 71 01/02/19 04:00 97.8 60 18 120/50 (73) 99 01/02/19 04:00 Bi-pap 01/02/19 04:00 50 01/02/19 03:00 59 21 133/60 (84) 98 01/02/19 02:50 63 12 100 Facial 40 01/02/19 02:00 61 18 124/50 (74) 100 01/02/19 01:00 65 29 112/53 (72) 100 01/02/19 00:57 61 12 99 Facial 45 01/02/19 00:00 50 01/02/19 00:00 71 01/02/19 00:00 Bi-pap 01/02/19 00:00 98.3 64 25 112/53 (72) 100 01/01/19 23:00 60 23 94/43 (60) 100 01/01/19 22:58 63 12 100 Facial 45 01/01/19 22:00 62 20 96/43 (60) 100 01/01/19 22:00 57 96/43 01/01/19 21:00 63 18 95/45 (62) 100 01/01/19 20:40 60 12 100 Facial 50 01/01/19 20:00 57 01/01/19 20:00 97.8 58 26 91/56 (68) 100 01/01/19 20:00 Bi-pap 01/01/19 20:00 50 01/01/19 19:00 100 Bi-Pap 50 01/01/19 19:00 59 12 100 Facial 50 01/01/19 19:00 97.8 59 21 110/50 (70) 100 01/01/19 18:00 57 19 112/65 (81) 100 01/01/19 17:44 57 102/68 01/01/19 17:00 65 25 102/68 (79) 100 Intake and Output 01/01/19 01/02/19 19:00 07:00 Intake Total 133.75 ml 1222 ml Output Total 20 ml 300 ml Balance 113.75 ml 922 ml IV Total 133.75 ml 1222 ml Output Urine Total 20 ml 300 ml # Bowel Movements 2 Objective BiPAP General Appearance: no acute distress, cachetic Respiratory/Chest: lungs clear, decreased breath sounds Cardiovascular: normal rate Abdomen: soft, non tender Laboratory Tests 01/02/19 04:00: White Blood Count 16.7H, Red Blood Count 3.21L, Hemoglobin 9.4L, Hematocrit 30.5L, Mean Corpuscular Volume 95, Mean Corpuscular Hemoglobin 29.2, Mean Corpuscular Hemoglobin Concent 30.6L, Red Cell Distribution Width 14.5, Platelet Count 115L, Mean Platelet Volume 9.3, Neutrophils (%) (Auto) , Lymphocytes (%) (Auto) , Monocytes (%) (Auto) , Eosinophils (%) (Auto) , Basophils (%) (Auto) , Differential Total Cells Counted 100, Neutrophils % ( Manual) 95H, Lymphocytes % (Manual) 2L, Monocytes % (Manual) 3, Eosinophils % ( Manual) 0, Basophils % (Manual) 0, Band Neutrophils 0, Platelet Estimate DecreasedL, Platelet Morphology Normal, Anisocytosis 1+, Prothrombin Time 12.4H , Prothromb Time International Ratio 1.2H, Activated Partial Thromboplast Time 27, Sodium Level 146H, Potassium Level 4.2, Chloride Level 103, Carbon Dioxide Level 45*H, Anion Gap -2L, Blood Urea Nitrogen 13, Creatinine 0.4L, Estimat Glomerular Filtration Rate , Glucose Level 146H, Calcium Level 8.2L, Total Bilirubin 0.4, Aspartate Amino Transf (AST/SGOT) 16, Alanine Aminotransferase ( ALT/SGPT) 22, Alkaline Phosphatase 71, Pro-B-Type Natriuretic Peptide 525H, Total Protein 5.2L, Albumin 2.2L, Globulin 3.0, Albumin/Globulin Ratio 0.7L 01/02/19 08:00: Arterial Blood pH 7.374, Arterial Blood Partial Pressure CO2 74.0*H, Arterial Blood Partial Pressure O2 62.7L, Arterial Blood HCO3 42.2*H, Arterial Blood Oxygen Saturation 91.4L, Arterial Blood Base Excess 14.4*H, Samuel Test Positive Current Medications Medications (Trade) Dose Ordered Sig/Katie Route PRN Reason Start Time Stop Time Status Last Admin Dose Admin Acetaminophen (Tylenol) 650 mg Q6H PRN RECTAL Mild Pain (Pain Scale 1-3) 01/01/19 13:51 01/31/19 13:50 Bisacodyl (Dulcolax) 10 mg DAILYPRN PRN RECTAL Constipation 01/01/19 13:51 01/31/19 13:50 Chlorhexidine Gluconate (Radhika-Hex 2%) 1 applic DAILY@2000 TOPIC 01/01/19 20:00 01/23/19 19:59 01/01/19 20:07 Diltiazem HCl (Cardizem) 60 mg EVERY 8 HOURS GT 01/01/19 22:00 01/31/19 21:59 Heparin Sodium (Porcine) (Heparin 5000 units/ml) 5,000 units EVERY 12 HOURS SUBQ 01/01/19 21:00 01/27/19 20:59 Methylprednisolone Sodium Succinate (Solu-MEDROL) 20 mg Q12H IV 01/01/19 18:00 01/22/19 21:59 01/02/19 06:06 Pantoprazole (Protonix) 40 mg DAILY IVP 01/02/19 09:00 01/23/19 08:59 01/02/19 08:24 Sodium Hypochlorite (Dakin's Quarter Strength) 1 applic EVERY 12 HOURS TOPIC 01/01/19 21:00 01/24/19 11:14 01/02/19 08:24 Sodium Chloride 1,000 ml @ 75 mls/hr [id number] IV 01/01/19 17:15 01/31/19 17:14 01/02/19 06:06 Tamsulosin HCl (Flomax) 0.4 mg BEDTIME ORAL 01/01/19 21:00 01/28/19 20:59 Eliseo Pena MD Jan 02, 2019 16:52
--- NOTE | 2019-01-02 17:00 | Progress Note ---
DATE: 01/02/2019 CARDIOLOGY PROGRESS NOTE SUBJECTIVE: No recurring atrial fibrillation. Remaining in sinus rhythm and sinus bradycardia. Chest x-ray today revealed hyperinflation with no acute process. OBJECTIVE: VITAL SIGNS: Blood pressure 148/78, pulse 67, and respirations 27. NECK: Supple. Right IJ line site clean and dry. LUNGS: With few rhonchi. CARDIAC: Regular rhythm and rate. Normal S1, S2 with no new murmur. ABDOMEN: Soft and nontender. EXTREMITIES: No edema. LABORATORY DATA: White count 16.7 and hemoglobin 9.4. Sodium 146, potassium 4.2, bicarb 45, BUN 18, and creatinine 0.4. Albumin 2.2. ABG, pH 7.37, pCO2 74, and pO2 62. IMPRESSION: 1. Acute on chronic respiratory acidosis. 2. Respiratory failure. 3. Compensatory metabolic alkalosis. 4. Leukocytosis. 5. Anemia. 6. Dehydration. 7. Hypernatremia. 8. Severe protein-calorie malnutrition. 9. Acute on chronic diastolic congestive heart failure, improved. PLAN: 1. No additional diuresis at this time. 2. Free water replacement. 3. Respiratory hygiene. 4. Antimicrobials. 5. Nutrition by feeding tube. 6. DVT prophylaxis. 7. Continue diltiazem for suppression of atrial tachyarrhythmias. Cody Melendez M.D. DR: STACI JOB#: [id number] CC:
--- NOTE | 2019-01-02 18:52 | Surgery Progress Note ---
Surgery Progress Note Subjective Additional Comments ill appearing labs noted abg noted plan intubate, improve, optimize, trach Objective Last 24 Hour Vital Signs Date Time Temp Pulse Resp B/P (MAP) Pulse Ox O2 Delivery O2 Flow Rate FiO2 01/02/19 18:00 65 18 116/43 (67) 98 01/02/19 17:00 57 17 116/49 (71) 98 01/02/19 16:47 70 28 96 Full Face 40 01/02/19 16:46 69 24 97 Bi-Pap 40 01/02/19 16:00 55 01/02/19 16:00 Bi-pap 01/02/19 16:00 97.6 66 18 114/61 (78) 87 01/02/19 15:30 78 25 99 Full Face 50 01/02/19 15:00 68 17 126/49 (74) 100 01/02/19 14:00 59 34 119/48 (71) 100 01/02/19 14:00 56 119/48 01/02/19 13:02 50 01/02/19 13:01 75 13 93 Facial 50 01/02/19 13:00 57 23 141/55 (83) 95 01/02/19 12:00 61 23 119/50 (73) 98 01/02/19 12:00 40 01/02/19 12:00 Bi-pap 01/02/19 11:48 59 01/02/19 11:09 78 19 98 Facial 40 01/02/19 11:00 67 27 148/78 (101) 98 01/02/19 10:00 58 25 124/55 (78) 100 01/02/19 09:05 60 14 100 Facial 40 01/02/19 09:00 66 21 110/49 (69) 100 01/02/19 08:00 Bi-pap 01/02/19 08:00 40 01/02/19 08:00 96.9 67 15 128/49 (75) 100 01/02/19 08:00 73 01/02/19 07:20 72 15 96 Facial 40 01/02/19 07:19 96 Bi-Pap 40 01/02/19 07:00 57 14 121/47 (71) 100 01/02/19 06:00 58 27 117/52 (73) 100 01/02/19 06:00 62 117/52 01/02/19 05:07 60 13 100 Facial 40 01/02/19 05:00 56 17 111/54 (73) 100 01/02/19 05:00 40 01/02/19 04:00 71 01/02/19 04:00 97.8 60 18 120/50 (73) 99 01/02/19 04:00 Bi-pap 01/02/19 04:00 50 01/02/19 03:00 59 21 133/60 (84) 98 01/02/19 02:50 63 12 100 Facial 40 01/02/19 02:00 61 18 124/50 (74) 100 01/02/19 01:00 65 29 112/53 (72) 100 01/02/19 00:57 61 12 99 Facial 45 01/02/19 00:00 50 01/02/19 00:00 71 01/02/19 00:00 Bi-pap 01/02/19 00:00 98.3 64 25 112/53 (72) 100 01/01/19 23:00 60 23 94/43 (60) 100 01/01/19 22:58 63 12 100 Facial 45 01/01/19 22:00 62 20 96/43 (60) 100 01/01/19 22:00 57 96/43 01/01/19 21:00 63 18 95/45 (62) 100 01/01/19 20:40 60 12 100 Facial 50 01/01/19 20:00 57 01/01/19 20:00 97.8 58 26 91/56 (68) 100 01/01/19 20:00 Bi-pap 01/01/19 20:00 50 01/01/19 19:00 100 Bi-Pap 50 01/01/19 19:00 59 12 100 Facial 50 01/01/19 19:00 97.8 59 21 110/50 (70) 100 I&O Intake and Output 01/01/19 01/02/19 19:00 07:00 Intake Total 133.75 ml 1222 ml Output Total 20 ml 300 ml Balance 113.75 ml 922 ml IV Total 133.75 ml 1222 ml Output Urine Total 20 ml 300 ml # Bowel Movements 2 Dressing: other Wound: other Drains: other Cardiovascular: RSR Respiratory: decreased breath sounds Abdomen: soft, present bowel sounds Extremities: no cyanosis Laboratory Tests Test 01/02/19 04:00 01/02/19 08:00 White Blood Count 16.7 K/UL (4.8-10.8) H Red Blood Count 3.21 M/UL (4.70-6.10) L Hemoglobin 9.4 G/DL (14.2-18.0) L Hematocrit 30.5 % (42.0-52.0) L Mean Corpuscular Volume 95 FL (80-99) Mean Corpuscular Hemoglobin 29.2 PG (27.0-31.0) Mean Corpuscular Hemoglobin Concent 30.6 G/DL (32.0-36.0) L Red Cell Distribution Width 14.5 % (11.6-14.8) Platelet Count 115 K/UL (150-450) L Mean Platelet Volume 9.3 FL (6.5-10.1) Neutrophils (%) (Auto) % (45.0-75.0) Lymphocytes (%) (Auto) % (20.0-45.0) Monocytes (%) (Auto) % (1.0-10.0) Eosinophils (%) (Auto) % (0.0-3.0) Basophils (%) (Auto) % (0.0-2.0) Differential Total Cells Counted 100 Neutrophils % (Manual) 95 % (45-75) H Lymphocytes % (Manual) 2 % (20-45) L Monocytes % (Manual) 3 % (1-10) Eosinophils % (Manual) 0 % (0-3) Basophils % (Manual) 0 % (0-2) Band Neutrophils 0 % (0-8) Platelet Estimate Decreased L Platelet Morphology Normal Anisocytosis 1+ Prothrombin Time 12.4 SEC (9.30-11.50) H Prothromb Time International Ratio 1.2 (0.9-1.1) H Activated Partial Thromboplast Time 27 SEC (23-33) Sodium Level 146 MMOL/L (136-145) H Potassium Level 4.2 MMOL/L (3.5-5.1) Chloride Level 103 MMOL/L (98-107) Carbon Dioxide Level 45 MMOL/L (21-32) *H Anion Gap -2 mmol/L (5-15) L Blood Urea Nitrogen 13 mg/dL (7-18) Creatinine 0.4 MG/DL (0.55-1.30) L Estimat Glomerular Filtration Rate mL/min (>60) Glucose Level 146 MG/DL (74-106) H Calcium Level 8.2 MG/DL (8.5-10.1) L Total Bilirubin 0.4 MG/DL (0.2-1.0) Aspartate Amino Transf (AST/SGOT) 16 U/L (15-37) Alanine Aminotransferase (ALT/SGPT) 22 U/L (12-78) Alkaline Phosphatase 71 U/L (46-116) Pro-B-Type Natriuretic Peptide 525 pg/mL (0-125) H Total Protein 5.2 G/DL (6.4-8.2) L Albumin 2.2 G/DL (3.4-5.0) L Globulin 3.0 g/dL Albumin/Globulin Ratio 0.7 (1.0-2.7) L Arterial Blood pH 7.374 (7.350-7.450) Arterial Blood Partial Pressure CO2 74.0 mmHg (35.0-45.0) *H Arterial Blood Partial Pressure O2 62.7 mmHg (75.0-100.0) L Arterial Blood HCO3 42.2 mmol/L (22.0-26.0) *H Arterial Blood Oxygen Saturation 91.4 % (95-100) L Arterial Blood Base Excess 14.4 (-2-2) *H Samuel Test Positive Plan Problems: (1) Failure to thrive in adult Assessment & Plan: DAILY ESTIMATED NEEDS: Needs based on Wound healing, Pulmonary, Underweight/ 49.5kg 30-40 kcals/kg 6442-0531 total kcals 1.25-1.8 g protein/kg 62-89 g total protein 25-30 mL/kg 2532-8037 total fluid mLs NUTRITION DIAGNOSIS: Increased kcal/prot needs R/T underweight status, wound healing, severe COPD per MD as evidenced by pt is 73% IBW w/ BMI of 17.0, admitted w/ advanced sacral and rt elbow wounds, unstageable BL heel wounds, pending eval, currently on BIPAP, NPO. CURRENT DIET:NPO PO DIET RECOMMENDATIONS: WHEN SAFE FOR ORAL DIET AND OFF BIPAP -> regular/ texture per BARGE WORKER ENTERAL NUTRITION RECOMMENDATIONS: CONSULT RD FOR TF REC IF INDICATED AND PART OF POC ADDITIONAL RECOMMENDATIONS: * Per SNF: HT=67", GE=397mvv (as of 12/21) -> rec calibrated bedscale wt, weekly wt monitoring * BARGE WORKER evaluation prior to oral diet * Ensure Enlive TID w/ meals w/ oral diet * Wound healing: when able for oral meds -> add MVI w/ min x 1, Vit C 500mg BID, ZnSO4 220mg QD x 10 days -> Gaetano 1pkt BID (2) Malnutrition (3) Decubitus skin ulcer Assessment & Plan: Pt presented on admission with multiple pressure injuries. 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 Base of wound has 95% slough. 5% viable. Bone is palpable. Edges macerated. Non- blanching erythema periwound. No odor noted. Hyperpigmentation with surrounding darker skin tone without induration. Full thickness stage 4 sacral pressure injury with undermining . Base of wound has 60% slough, 40% oscar. Bone is palpable. Small amt brown exudate. Mild odor noted. Periwound darker skin tone noted. (L)7cm x (W)7.3cm x (D)2.5cm, undermining clockwise 8 -3 by 3.8cm @9o'clock. Necrotic area noted to R ischium.Periwound is intact.(L)0.4cm x (W)1.3cm. Stable dry eschar medial/lateral R foot (L)2.2cm x (W)1.5cm. periwound is intact. Black area without induration or fluctuance noted to distal/lateral R foot. (L) 1.5cm x (W)1.8cm. Stable dry eschar dorso/flexor R foot 0.4cm x (W)2.5cm. Unstageable pressure injury R heel. Base of wound is 100% necrotic . Periwound is boggy but no erythema noted (L)6.5cm x (W)7cm. Unstageable pressure injury L heel. Base of wound is 100% necrotic(L)1.5cm x (W) 2.5cm with surrounding pink epithelial bordered by hyperpigmentation(L)4cm x (W) 4.4cm. Reducible LIH Tx.Plan: Cleanse Sacral wound with Dakin's 0.125% mike. Loosely pack with Dakin's moistened kerlix. Apply Moisture Barrier Paste periwound. Cover with Optifoam drsg Twice Daily and prn. Cleanse R elbow with Dakin's 0.125% mike. Loosely pack with dakin's moist Kerlix gauze. Apply Moisture Barrier paste periwound.Cover with Optifoam drsg. Twice Daily and prn. Apply Betadine to R and L heels. Cover with Optifoam drsg. Change every 3 days and prn. Apply Betadine to necrotic areas Lateral R foot and dorso /flexor R foot. Cover each wound with Optifoam drsg every 3 days and prn. Apply Moisture Barrier paste to R ischium. Cover with Optifoam drsg. Change every 3 days and prn. Air Fluidized mattress. Reposition at least every 2hours or as tolerated. Off-load heels with pillow. Elevate R and L elbows with pillow. (4) Sepsis Assessment & Plan: leukocytosis tachypnea improved CXR noted labs noted respiratory decline intubate? candidate for early trach cont abx IV fluids feeds and nutritional support will monitor LI[facility] will follow with recs (5) Respiratory failure (6) Left elbow contusion Sher Keene Jan 02, 2019 18:52
[2019-01-02] MEDS: Dyna-Hex 2% Top Sol 2oz TOPIC SCH (20:11)
[2019-01-02] MEDS: Tamsulosin 0.4mg cap ORAL SCH (21:00)
--- NOTE | 2019-01-02 23:15 | Consultation ---
DATE OF CONSULTATION: 01/02/2019 CONSULTING PHYSICIAN: Bubba Felix M.D. REFERRING PHYSICIAN: Eliseo Pena M.D. REASON FOR CONSULTATION: For evaluation of enlarged scrotum. HISTORY OF PRESENT ILLNESS: This is an 88-year-old gentleman. He was originally admitted to the hospital because of lethargy. He has had a long hospital course. He has respiratory failure. He is in the intensive care unit. He is on BiPAP. He has a Mcpherson catheter indwelling. He has a history of BPH, urinary retention. There was low urine output noted. The nursing staff noticed that his scrotum was enlarging. Urology evaluation was requested. Most of the history was obtained from the chart. PAST MEDICAL HISTORY: Significant for end-stage lung disease, history of edema, depression, coronary artery disease, hypertension, acid reflux, BPH, osteoarthritis. PAST SURGICAL HISTORY: Unknown. MEDICATIONS: Current medication list was reviewed. ALLERGIES: Per chart. REVIEW OF SYSTEMS: Unable to obtain. PHYSICAL EXAMINATION: GENERAL: An elderly male, nonverbal. VITAL SIGNS: Temperature is 97.6. He is on BiPAP. ABDOMEN: Soft. Mcpherson is in place, 16-Yi. There is enlarged scrotum mostly on the left side. Urine is grossly yellow. LABORATORY DATA: BUN is 15, creatinine 0.4. White count 16.7, hemoglobin 9.4. UA on admit showed 2+ protein, too numerous to count rbc's, 30 to 40 wbc's, many bacteria. Urine culture was negative. DIAGNOSTIC IMAGING STUDIES: Reviewed. There is no renal imaging. IMPRESSION: 1. Urinary retention. 2. Benign prostatic hypertrophy. 3. Rule out neurogenic bladder. 4. Scrotal enlargement, probable inguinal hernia versus hydrocele. 5. Hematuria. 6. Pyuria. 7. Proteinuria. PLAN AND DISCUSSION: Again the patient has enlarged scrotum. There is no erythema or redness. There is no acute process, although it appears that he may have either hydrocele or an inguinal hernia that is protruding into the scrotum. The Mcpherson catheter is indwelling. I did hand irrigate the Mcpherson and it is in good position. The patient will be monitored clinically. We will consider renal imaging study. Bubba Felix M.D. DR: Prince JOB#: [id number] CC:
[2019-01-03] VITALS (23 sets, daily range): BP systolic 93–193; BP diastolic 39–75
[2019-01-03 04:52] LABS: HEMATOCRIT 30.1 % (42.0-52.0); HEMOGLOBIN 9.1 G/DL (14.2-18.0); MEAN CORPUSCULAR VOLUME 96 FL (80-99); PLATELET COUNT 129 K/UL (150-450); RED BLOOD COUNT 3.15 M/UL (4.70-6.10); RED CELL DISTRIBUTION WIDTH 14.6 % (11.6-14.8); WHITE BLOOD COUNT 14.7 K/UL (4.8-10.8)
[2019-01-03 05:06] LABS: ALANINE AMINOTRANSFERASE 22 U/L (12-78); ALBUMIN 2.1 G/DL (3.4-5.0); ALBUMIN/GLOBULIN RATIO 0.7 (1.0-2.7); ALKALINE PHOSPHATASE 70 U/L (46-116); ANION GAP -1 mmol/L (5-15); ASPARTATE AMINO TRANSFERASE 17 U/L (15-37); BILIRUBIN,TOTAL 0.5 MG/DL (0.2-1.0); BLOOD UREA NITROGEN 13 mg/dL (7-18); CHLORIDE 103 MMOL/L (98-107); CREATININE 0.3 MG/DL (0.55-1.30); POTASSIUM 4.1 MMOL/L (3.5-5.1); SODIUM 145 MMOL/L (136-145)
[2019-01-03 05:08] LABS: CARBON DIOXIDE 42 MMOL/L (21-32)
[2019-01-03 05:14] LABS: BILIRUBIN, URINE NEGATIVE (NEGATIVE); GLUCOSE, URINE (UA) NEGATIVE (NEGATIVE); KETONES,URINE 3+ (NEGATIVE); LEUKOCYTE ESTERASE ,URINE 2+ (NEGATIVE); NITRITE,URINE NEGATIVE (NEGATIVE); PH,URINE 6 (4.5-8.0); PROTEIN,URINE 3+ (NEGATIVE); UROBILINOGEN,URINE 1 MG/DL (0.0-1.0)
[2019-01-03] MEDS: dilTIAZem HCl 60mg tab GT SCH ×3 (06:00→21:46)
[2019-01-03 06:04] LABS: APPEARANCE,URINE SLIGHTLY CLOUDY; COLOR,URINE YELLOW
[2019-01-03] MEDS: Solu-MEDROL 40mg Inj IV SCH ×2 (06:10→18:06)
[2019-01-03] MEDS: Dakin's 0.125% Soln (Quarter Strength) 16oz TOPIC SCH (08:15)
[2019-01-03] MEDS: Pantoprazole Inj IVP SCH (08:15)
[2019-01-03] MEDS: Heparin 5000 units/ml inj SUBQ SCH ×2 (08:16→21:00)
--- NOTE | 2019-01-03 11:37 | Surgery Progress Note ---
Surgery Progress Note Subjective Additional Comments Patient seen and examined bedside. He looks very uncomfortable. He is still on BiPAP. I spoke to the patient's power of ip technology transactions attorney Ms. Lopez today on the phone and I explained to her his current condition and goals for care plan. I explained to her the indications of intubation and tracheostomy given his respiratory insufficiency at this time. I explained to her the potential for possible feeding tube I explained to her the potential for considerations of changing CODE STATUS and goals of care plans. Ms. Lopez states that she is currently undecided but will come later this afternoon to evaluate him and give update on goals of care given the above information she was given in detail today. Objective Last 24 Hour Vital Signs Date Time Temp Pulse Resp B/P (MAP) Pulse Ox O2 Delivery O2 Flow Rate FiO2 01/03/19 11:00 61 18 123/57 (79) 100 01/03/19 10:36 64 12 100 Facial 40 01/03/19 10:00 60 17 93/39 (57) 100 01/03/19 09:00 79 23 147/66 (93) 100 01/03/19 08:45 62 12 100 Facial 40 01/03/19 08:00 99.3 82 15 132/59 (83) 98 01/03/19 08:00 Bi-pap 01/03/19 07:52 80 01/03/19 07:05 83 16 94 Facial 40 01/03/19 07:05 94 Bi-Pap 40 01/03/19 07:00 71 20 122/47 (72) 98 01/03/19 06:00 70 120/47 01/03/19 06:00 71 27 120/47 (71) 100 01/03/19 05:30 40 01/03/19 05:20 67 12 100 Full Face 40 01/03/19 05:00 77 23 128/52 (77) 100 01/03/19 04:17 50 01/03/19 04:00 98.0 66 24 137/74 (95) 100 01/03/19 04:00 70 01/03/19 04:00 40 01/03/19 04:00 Bi-pap 01/03/19 03:16 64 14 100 Full Face 40 01/03/19 03:00 68 20 121/49 (73) 100 01/03/19 02:00 69 19 129/55 (79) 99 01/03/19 01:46 66 30 99 Full Face 40 01/03/19 01:00 65 23 109/46 (67) 99 01/03/19 00:00 40 01/03/19 00:00 97.7 78 22 126/49 (74) 99 01/03/19 00:00 66 01/03/19 00:00 Bi-pap 01/02/19 23:00 73 23 126/48 (74) 98 01/02/19 22:51 64 26 100 Full Face 40 01/02/19 22:00 40 01/02/19 22:00 69 20 115/50 (71) 97 01/02/19 22:00 67 115/50 01/02/19 21:28 81 18 94 Full Face 40 01/02/19 21:00 64 19 143/50 (81) 100 01/02/19 20:00 Bi-pap 01/02/19 20:00 65 01/02/19 20:00 98.0 67 22 123/50 (74) 100 01/02/19 20:00 50 01/02/19 19:24 66 14 100 Full Face 40 01/02/19 19:23 100 Bi-Pap 40 01/02/19 19:00 68 19 119/46 (70) 100 01/02/19 18:00 65 18 116/43 (67) 98 01/02/19 17:00 57 17 116/49 (71) 98 01/02/19 16:47 70 28 96 Full Face 40 01/02/19 16:46 69 24 97 Bi-Pap 40 01/02/19 16:00 55 01/02/19 16:00 Bi-pap 01/02/19 16:00 97.6 66 18 114/61 (78) 87 01/02/19 15:30 78 25 99 Full Face 50 01/02/19 15:00 68 17 126/49 (74) 100 01/02/19 14:00 59 34 119/48 (71) 100 01/02/19 14:00 56 119/48 01/02/19 13:02 50 01/02/19 13:01 75 13 93 Facial 50 01/02/19 13:00 57 23 141/55 (83) 95 01/02/19 12:00 61 23 119/50 (73) 98 01/02/19 12:00 40 01/02/19 12:00 Bi-pap 01/02/19 11:48 59 I&O Intake and Output 01/02/19 01/03/19 18:59 06:59 Intake Total 517 ml 837 ml Output Total 98 ml 255 ml Balance 419 ml 582 ml IV Total 517 ml 837 ml Output Urine Total 98 ml 255 ml Dressing: other Wound: other Drains: other Cardiovascular: RSR Respiratory: decreased breath sounds Abdomen: soft, present bowel sounds, non-distended Extremities: no cyanosis, other Laboratory Tests Test 01/03/19 03:30 White Blood Count 14.7 K/UL (4.8-10.8) H Red Blood Count 3.15 M/UL (4.70-6.10) L Hemoglobin 9.1 G/DL (14.2-18.0) L Hematocrit 30.1 % (42.0-52.0) L Mean Corpuscular Volume 96 FL (80-99) Mean Corpuscular Hemoglobin 28.8 PG (27.0-31.0) Mean Corpuscular Hemoglobin Concent 30.1 G/DL (32.0-36.0) L Red Cell Distribution Width 14.6 % (11.6-14.8) Platelet Count 129 K/UL (150-450) L Mean Platelet Volume 8.8 FL (6.5-10.1) Neutrophils (%) (Auto) % (45.0-75.0) Lymphocytes (%) (Auto) % (20.0-45.0) Monocytes (%) (Auto) % (1.0-10.0) Eosinophils (%) (Auto) % (0.0-3.0) Basophils (%) (Auto) % (0.0-2.0) Differential Total Cells Counted 100 Neutrophils % (Manual) 90 % (45-75) H Lymphocytes % (Manual) 2 % (20-45) L Monocytes % (Manual) 8 % (1-10) Eosinophils % (Manual) 0 % (0-3) Basophils % (Manual) 0 % (0-2) Band Neutrophils 0 % (0-8) Platelet Estimate Decreased L Platelet Morphology Normal Urine Color Yellow Urine Appearance Slightly cloudy Urine pH 6 (4.5-8.0) Urine Specific [place] 1.015 (1.005-1.035) Urine Protein 3+ (NEGATIVE) H Urine Glucose (UA) Negative (NEGATIVE) Urine Ketones 3+ (NEGATIVE) H Urine Blood 5+ (NEGATIVE) H Urine Nitrite Negative (NEGATIVE) Urine Bilirubin Negative (NEGATIVE) Urine Urobilinogen 1 MG/DL (0.0-1.0) H Urine Leukocyte Esterase 2+ (NEGATIVE) H Urine RBC Tntc /HPF (0 - 0) H Urine WBC 10-15 /HPF (0 - 0) H Urine Squamous Epithelial Cells None /LPF (NONE/OCC) Urine Bacteria Few /HPF (NONE) Sodium Level 145 MMOL/L (136-145) Potassium Level 4.1 MMOL/L (3.5-5.1) Chloride Level 103 MMOL/L (98-107) Carbon Dioxide Level 42 MMOL/L (21-32) *H Anion Gap -1 mmol/L (5-15) L Blood Urea Nitrogen 13 mg/dL (7-18) Creatinine 0.3 MG/DL (0.55-1.30) L Estimat Glomerular Filtration Rate mL/min (>60) Glucose Level 72 MG/DL (74-106) L Calcium Level 8.0 MG/DL (8.5-10.1) L Total Bilirubin 0.5 MG/DL (0.2-1.0) Aspartate Amino Transf (AST/SGOT) 17 U/L (15-37) Alanine Aminotransferase (ALT/SGPT) 22 U/L (12-78) Alkaline Phosphatase 70 U/L (46-116) Total Protein 5.2 G/DL (6.4-8.2) L Albumin 2.1 G/DL (3.4-5.0) L Globulin 3.1 g/dL Albumin/Globulin Ratio 0.7 (1.0-2.7) L Plan Problems: (1) Failure to thrive in adult Assessment & Plan: DAILY ESTIMATED NEEDS: Needs based on Wound healing, Pulmonary, Underweight/ 49.5kg 30-40 kcals/kg 7402-3799 total kcals 1.25-1.8 g protein/kg 62-89 g total protein 25-30 mL/kg 2162-9483 total fluid mLs NUTRITION DIAGNOSIS: Increased kcal/prot needs R/T underweight status, wound healing, severe COPD per MD as evidenced by pt is 73% IBW w/ BMI of 17.0, admitted w/ advanced sacral and rt elbow wounds, unstageable BL heel wounds, pending eval, currently on BIPAP, NPO. CURRENT DIET:NPO PO DIET RECOMMENDATIONS: WHEN SAFE FOR ORAL DIET AND OFF BIPAP -> regular/ texture per ORIENTATION & MOBILITY SPECIALIST ENTERAL NUTRITION RECOMMENDATIONS: CONSULT RD FOR TF REC IF INDICATED AND PART OF POC ADDITIONAL RECOMMENDATIONS: * Per SNF: HT=67", NN=281poa (as of 12/21) -> rec calibrated bedscale wt, weekly wt monitoring * ORIENTATION & MOBILITY SPECIALIST evaluation prior to oral diet * Ensure Enlive TID w/ meals w/ oral diet * Wound healing: when able for oral meds -> add MVI w/ min x 1, Vit C 500mg BID, ZnSO4 220mg QD x 10 days -> Gaetano 1pkt BID (2) Malnutrition (3) Decubitus skin ulcer Assessment & Plan: Pt presented on admission with multiple pressure injuries. 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 Base of wound has 95% slough. 5% viable. Bone is palpable. Edges macerated. Non- blanching erythema periwound. No odor noted. Hyperpigmentation with surrounding darker skin tone without induration. Full thickness stage 4 sacral pressure injury with undermining . Base of wound has 60% slough, 40% oscar. Bone is palpable. Small amt brown exudate. Mild odor noted. Periwound darker skin tone noted. (L)7cm x (W)7.3cm x (D)2.5cm, undermining clockwise 8 -3 by 3.8cm @9o'clock. Necrotic area noted to R ischium.Periwound is intact.(L)0.4cm x (W)1.3cm. Stable dry eschar medial/lateral R foot (L)2.2cm x (W)1.5cm. periwound is intact. Black area without induration or fluctuance noted to distal/lateral R foot. (L) 1.5cm x (W)1.8cm. Stable dry eschar dorso/flexor R foot 0.4cm x (W)2.5cm. Unstageable pressure injury R heel. Base of wound is 100% necrotic . Periwound is boggy but no erythema noted (L)6.5cm x (W)7cm. Unstageable pressure injury L heel. Base of wound is 100% necrotic(L)1.5cm x (W) 2.5cm with surrounding pink epithelial bordered by hyperpigmentation(L)4cm x (W) 4.4cm. Reducible LIH Tx.Plan: Cleanse Sacral wound with Dakin's 0.125% mike. Loosely pack with Dakin's moistened kerlix. Apply Moisture Barrier Paste periwound. Cover with Optifoam drsg Twice Daily and prn. Cleanse R elbow with Dakin's 0.125% mike. Loosely pack with dakin's moist Kerlix gauze. Apply Moisture Barrier paste periwound.Cover with Optifoam drsg. Twice Daily and prn. Apply Betadine to R and L heels. Cover with Optifoam drsg. Change every 3 days and prn. Apply Betadine to necrotic areas Lateral R foot and dorso /flexor R foot. Cover each wound with Optifoam drsg every 3 days and prn. Apply Moisture Barrier paste to R ischium. Cover with Optifoam drsg. Change every 3 days and prn. Air Fluidized mattress. Reposition at least every 2hours or as tolerated. Off-load heels with pillow. Elevate R and L elbows with pillow. (4) Sepsis Assessment & Plan: leukocytosis tachypnea improved CXR noted labs noted respiratory decline intubate? candidate for early trach awaiting decision from POA for care plan trach and peg or comfort care? needs nutrition cont abx IV fluids feeds and nutritional support will monitor LI[facility] will follow with recs (5) Respiratory failure (6) Left elbow contusion Sher Keene Jan 03, 2019 11:37
--- NOTE | 2019-01-03 11:39 | Pulmonology Progress Note ---
Assessment/Plan Assessment/Plan 1. Acute on chronic respiratory failure. 2. 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 3. Cachexia and malnutrition. 4. Atherosclerotic aortic and cardiac disease. 5. History of hypertension, now hypotensive. 6. Urinary tract infection. 7. Diastolic heart failure with edema 8. Glaucoma. 9. Prostate hypertrophy. 10. Anemia. low u/o; bladder scan 20 cc scrotum with hernia add lasix He cannot survive without ventilatory support on BiPAP awake, weak spoke w BITA to clarify code status and plan she is speaking w and will call me after will need intubation and trach vs comfort measures (advised) disc w surgeon Subjective ROS Limited/Unobtainable: Yes Allergies: Coded Allergies: DORZOLAMIDE (Unverified Allergy, Unknown, 12/23/18) LISINOPRIL (Unverified Allergy, Unknown, 12/23/18) TIMOLOL (Unverified Allergy, Unknown, 12/23/18) TIOTROPIUM (Unverified Allergy, Unknown, 12/23/18) Objective Last 24 Hour Vital Signs Date Time Temp Pulse Resp B/P (MAP) Pulse Ox O2 Delivery O2 Flow Rate FiO2 01/03/19 11:00 61 18 123/57 (79) 100 01/03/19 10:36 64 12 100 Facial 40 01/03/19 10:00 60 17 93/39 (57) 100 01/03/19 09:00 79 23 147/66 (93) 100 01/03/19 08:45 62 12 100 Facial 40 01/03/19 08:00 99.3 82 15 132/59 (83) 98 01/03/19 08:00 Bi-pap 01/03/19 07:52 80 01/03/19 07:05 83 16 94 Facial 40 01/03/19 07:05 94 Bi-Pap 40 01/03/19 07:00 71 20 122/47 (72) 98 01/03/19 06:00 70 120/47 01/03/19 06:00 71 27 120/47 (71) 100 01/03/19 05:30 40 01/03/19 05:20 67 12 100 Full Face 40 01/03/19 05:00 77 23 128/52 (77) 100 01/03/19 04:17 50 01/03/19 04:00 98.0 66 24 137/74 (95) 100 01/03/19 04:00 70 01/03/19 04:00 40 01/03/19 04:00 Bi-pap 01/03/19 03:16 64 14 100 Full Face 40 01/03/19 03:00 68 20 121/49 (73) 100 01/03/19 02:00 69 19 129/55 (79) 99 01/03/19 01:46 66 30 99 Full Face 40 01/03/19 01:00 65 23 109/46 (67) 99 01/03/19 00:00 40 01/03/19 00:00 97.7 78 22 126/49 (74) 99 01/03/19 00:00 66 01/03/19 00:00 Bi-pap 01/02/19 23:00 73 23 126/48 (74) 98 01/02/19 22:51 64 26 100 Full Face 40 01/02/19 22:00 40 01/02/19 22:00 69 20 115/50 (71) 97 01/02/19 22:00 67 115/50 01/02/19 21:28 81 18 94 Full Face 40 01/02/19 21:00 64 19 143/50 (81) 100 01/02/19 20:00 Bi-pap 01/02/19 20:00 65 01/02/19 20:00 98.0 67 22 123/50 (74) 100 01/02/19 20:00 50 01/02/19 19:24 66 14 100 Full Face 40 01/02/19 19:23 100 Bi-Pap 40 01/02/19 19:00 68 19 119/46 (70) 100 01/02/19 18:00 65 18 116/43 (67) 98 01/02/19 17:00 57 17 116/49 (71) 98 01/02/19 16:47 70 28 96 Full Face 40 01/02/19 16:46 69 24 97 Bi-Pap 40 01/02/19 16:00 55 01/02/19 16:00 Bi-pap 01/02/19 16:00 97.6 66 18 114/61 (78) 87 01/02/19 15:30 78 25 99 Full Face 50 01/02/19 15:00 68 17 126/49 (74) 100 01/02/19 14:00 59 34 119/48 (71) 100 01/02/19 14:00 56 119/48 01/02/19 13:02 50 01/02/19 13:01 75 13 93 Facial 50 01/02/19 13:00 57 23 141/55 (83) 95 01/02/19 12:00 61 23 119/50 (73) 98 01/02/19 12:00 40 01/02/19 12:00 Bi-pap 01/02/19 11:48 59 Intake and Output 01/02/19 01/03/19 19:00 07:00 Intake Total 525 ml 837 ml Output Total 88 ml 260 ml Balance 437 ml 577 ml IV Total 525 ml 837 ml Output Urine Total 88 ml 260 ml Objective BiPAP General Appearance: no acute distress, cachetic HEENT: atraumatic Respiratory/Chest: lungs clear, decreased breath sounds Cardiovascular: normal rate Abdomen: soft, non tender, hernia Extremities: other - 2+ UE edema Laboratory Tests 01/03/19 03:30: White Blood Count 14.7H, Red Blood Count 3.15L, Hemoglobin 9.1L, Hematocrit 30.1L, Mean Corpuscular Volume 96, Mean Corpuscular Hemoglobin 28.8, Mean Corpuscular Hemoglobin Concent 30.1L, Red Cell Distribution Width 14.6, Platelet Count 129L, Mean Platelet Volume 8.8, Neutrophils (%) (Auto) , Lymphocytes (%) (Auto) , Monocytes (%) (Auto) , Eosinophils (%) (Auto) , Basophils (%) (Auto) , Differential Total Cells Counted 100, Neutrophils % ( Manual) 90H, Lymphocytes % (Manual) 2L, Monocytes % (Manual) 8, Eosinophils % ( Manual) 0, Basophils % (Manual) 0, Band Neutrophils 0, Platelet Estimate DecreasedL, Platelet Morphology Normal, Urine Color Yellow, Urine Appearance Slightly cloudy, Urine pH 6, Urine Specific [place] 1.015, Urine Protein 3+H, Urine Glucose (UA) Negative, Urine Ketones 3+H, Urine Blood 5+H, Urine Nitrite Negative, Urine Bilirubin Negative, Urine Urobilinogen 1H, Urine Leukocyte Esterase 2+H, Urine RBC TntcH, Urine WBC 10-15H, Urine Squamous Epithelial Cells None, Urine Bacteria Few, Sodium Level 145, Potassium Level 4.1, Chloride Level 103, Carbon Dioxide Level 42*H, Anion Gap -1L, Blood Urea Nitrogen 13, Creatinine 0.3L, Estimat Glomerular Filtration Rate , Glucose Level 72L, Calcium Level 8.0L, Total Bilirubin 0.5, Aspartate Amino Transf (AST/SGOT) 17, Alanine Aminotransferase (ALT/SGPT) 22, Alkaline Phosphatase 70, Total Protein 5.2L, Albumin 2.1L, Globulin 3.1, Albumin/Globulin Ratio 0.7L Current Medications Medications (Trade) Dose Ordered Sig/Katie Route PRN Reason Start Time Stop Time Status Last Admin Dose Admin Acetaminophen (Tylenol) 650 mg Q6H PRN RECTAL Mild Pain (Pain Scale 1-3) 01/01/19 13:51 01/31/19 13:50 Bisacodyl (Dulcolax) 10 mg DAILYPRN PRN RECTAL Constipation 01/01/19 13:51 01/31/19 13:50 Chlorhexidine Gluconate (Radhika-Hex 2%) 1 applic DAILY@2000 TOPIC 01/01/19 20:00 01/23/19 19:59 01/02/19 20:11 Diltiazem HCl (Cardizem) 60 mg EVERY 8 HOURS GT 01/01/19 22:00 01/31/19 21:59 Furosemide (Lasix) 20 mg DAILY IV 01/03/19 11:45 02/02/19 11:44 Heparin Sodium (Porcine) (Heparin 5000 units/ml) 5,000 units EVERY 12 HOURS SUBQ 01/01/19 21:00 01/27/19 20:59 01/03/19 08:16 Methylprednisolone Sodium Succinate (Solu-MEDROL) 20 mg Q12H IV 01/01/19 18:00 01/22/19 21:59 01/03/19 06:10 Pantoprazole (Protonix) 40 mg DAILY IVP 01/02/19 09:00 01/23/19 08:59 01/03/19 08:15 Sodium Hypochlorite (Dakin's Quarter Strength) 1 applic EVERY 12 HOURS TOPIC 01/01/19 21:00 01/24/19 11:14 01/03/19 08:15 Sodium Chloride 1,000 ml @ 75 mls/hr [id number] IV 01/01/19 17:15 01/31/19 17:14 01/03/19 08:15 Tamsulosin HCl (Flomax) 0.4 mg BEDTIME ORAL 01/01/19 21:00 01/28/19 20:59 Eliseo Pena MD Jan 03, 2019 11:39
[2019-01-03] MEDS ORDERED: Lidocaine 1% 10mg/ml/EPI 0.01mg/ml 50ml INJ ONE (13:48)
[2019-01-03] MEDS ORDERED: fentaNYL 100 mcg/2 mL IV ONE (14:10)
[2019-01-03] MEDS ORDERED: Rocuronium Bromide 50mg/5ml Inj IV ONE (14:17)
--- NOTE | 2019-01-03 14:29 | Pre-Procedure Note/Attestation ---
Pre-Procedure Note/Attestation Complete Prior to Procedure Procedure Narrative: tracheostomy Indications for Procedure Pre-Operative Diagnosis: respiratory insufficiency Attestation I attest that I discussed the nature of the procedure; its benefits; risks and complications; and alternatives (and the risks and benefits of such alternatives ), prior to the procedure, with the patient (or the patient's legal sales utility representative). I attest that, if there was a reasonable possibility of needing a blood transfusion, the patient (or the patient's legal sales utility representative) was given the [facility] standardized written summary, pursuant to the Jaspreet Sher Blood Safety Act ([place] Health and Safety Code # 1645, as amended). I attest that I re-evaluated the patient just prior to the surgery and that there has been no change in the patient's H&P, except as documented below: Sher Keene Jan 03, 2019 14:29
--- NOTE | 2019-01-03 15:31 | Brief Operative Note ---
Immediate Post Operative Note Operative Note Pre-op Diagnosis: respiratory insufficiency Procedure: Tracheostomy Post-op Diagnosis: same as pre-op Surgeon: Sher Keene MD Anesthesiologist: Eliseo Whitfield MD Anesthesia: general, local Specimen: none Complications: none Condition: stable Fluids: see notes Estimated Blood Loss: minimal Drains: none Implant(s) used?: Sher Ortiz Jan 03, 2019 15:31
--- NOTE | 2019-01-03 15:34 | Operative Note - PDOC ---
Operative Note Operative Note Pre-op Diagnosis: respiratory insufficiency Procedure: Tracheostomy Post-op Diagnosis: same as pre-op Surgeon: Sher Keene MD Anesthesiologist: Eliseo Whitfield MD Anesthesia: general, local Specimen: none Complications: none Condition: stable Fluids: see notes Estimated Blood Loss: minimal Drains: none Implant(s) used?: No Indications for Procedure This is a pleasant 88-year-old male with multi-medical comorbidities currently admitted to [facility] for care and management identified to have respiratory insufficiency prior placed on positive pressure mask improved to nasal cannula stabilized began to have deterioration and worsening respiratory sufficiency. Worsening ABG and requiring positive pressure and will require ventilator support for significant period of time. He is fairly deconditioned and decompensated. Patient on positive pressure ventilation through mask currently very uncomfortable and will require vent support. Tracheostomy was indicated and recommended early given these findings. Discussed with pulmonology horseback riding instructor medical team. Long discussion had with the patient and family at bedside including his power of staff attorney Mrs. Lopez. Risk-benefit alternatives discussed in detail and consent was obtained. Care plan and goals clearly identified giving patient's wishes. Description of Procedure The patient was taken to the operating room and placed on the operating table in the supine position. Prior to entering the operating patient ready had positive pressure ventilation and is on antibiotics. General anesthesia was induced patient was intubated and patient was intubated. shoulder roll was placed. Neck was extended.. The neck and anterior chest were prepped and draped in the standard surgical fashion. Preoperative time-out was taken identifying the patient, procedure and operative staff. The patient was already on preoperative antibiotics, and given as scheduled. The patient already had a Mcpherson in place prior to coming to the operating room. The thyroid and cricoid cartilage were palpated and the skin and subcutaneous tissue in this area was anesthetized with 1% lidocaine with epinephrine. An incision was made 2 fingerbreadths above the sternal notch. Subcu tissue and platysma were divided using with cautery. A hemostat was used to bluntly dissect down to the cricoid membrane. Electrocautery was used where necessary to obtain hemostasis. The strap muscles were identified and the median raphae was incised and the muscles were retracted laterally, and the thyroid isthmus was retracted superiorly. The first and second tracheal rings were clearly identified and exposure adequate. A tracheostomy hook was placed trachea was retracted superiorly. With the assistance of anesthesiologist, the endotracheal tube was withdrawn to the level of the cords. The second tracheal ring was identified. A transverse incision was made between the second and third rings with a fresh #11 scalpel blade. Under direct visualization A #8 Shiley tracheostomy tube was inserted and advanced. The tracheal hook was removed and the balloon was insufflated. Patient was placed to ventilatory support from the newly placed tracheostomy. The position was confirmed by end tidal CO2. Hemostasis was achieved in the incision with electrocautery as necessary. The tracheostomy tube was sutured in place and tracheostomy ties were placed and tied around the neck. The patient tolerated the procedure well, was taken back to the Surgical Intensive Care Unit in stable condition. Sher Keene Jan 03, 2019 15:34
--- NOTE | 2019-01-03 15:40 | Immediate Post-Op Evaluation ---
Immediate Post-Op Evalulation Immediate Post-Op Evalulation Procedure: Tracheostomy Date of Evaluation: Jan 03, 2019 Time of Evaluation: 15:39 IV Fluids: 200 Blood Products: none Estimated Blood Loss: min Urinary Output: none Blood Pressure Systolic: 102 Blood Pressure Diastolic: 56 Pulse Rate: 78 Respiratory Rate: 16 O2 Sat by Pulse Oximetry: 98 Temperature (Fahrenheit): 97.6 Pain Score (1-10): 1 Nausea: No Vomiting: No Complications none Patient Status: no response, ventilated, none Hydration Status: adequate Eliseo Kerr MD Jan 03, 2019 15:40
--- NOTE | 2019-01-03 15:40 | Urology Progress Note ---
Assessment/Plan Assessment/Plan: 1. Urinary retention. 2. Benign prostatic hypertrophy. 3. Rule out neurogenic bladder. 4. Scrotal enlargement, probable inguinal hernia versus hydrocele. 5. Hematuria. 6. Pyuria. 7. Proteinuria. maintain kline hand irrigated and do PRN on flomax voiding trial later Subjective Allergies: Coded Allergies: DORZOLAMIDE (Unverified Allergy, Unknown, 12/23/18) LISINOPRIL (Unverified Allergy, Unknown, 12/23/18) TIMOLOL (Unverified Allergy, Unknown, 12/23/18) TIOTROPIUM (Unverified Allergy, Unknown, 12/23/18) Subjective all noted, non-verbal, for trach Objective Last 24 Hour Vital Signs Date Time Temp Pulse Resp B/P (MAP) Pulse Ox O2 Delivery O2 Flow Rate FiO2 01/03/19 14:00 78 21 151/62 (91) 98 01/03/19 13:00 82 21 193/74 (113) 98 01/03/19 12:41 72 29 100 Facial 40 01/03/19 12:00 40 01/03/19 12:00 99.5 65 15 145/51 (82) 99 01/03/19 12:00 Bi-pap 01/03/19 11:31 67 01/03/19 11:00 61 18 123/57 (79) 100 01/03/19 10:36 64 12 100 Facial 40 01/03/19 10:00 60 17 93/39 (57) 100 01/03/19 09:00 79 23 147/66 (93) 100 01/03/19 08:45 62 12 100 Facial 40 01/03/19 08:00 99.3 82 15 132/59 (83) 98 01/03/19 08:00 40 01/03/19 08:00 Bi-pap 01/03/19 07:52 80 01/03/19 07:05 83 16 94 Facial 40 01/03/19 07:05 94 Bi-Pap 40 01/03/19 07:00 71 20 122/47 (72) 98 01/03/19 06:00 70 120/47 01/03/19 06:00 71 27 120/47 (71) 100 01/03/19 05:30 40 01/03/19 05:20 67 12 100 Full Face 40 01/03/19 05:00 77 23 128/52 (77) 100 01/03/19 04:17 50 01/03/19 04:00 98.0 66 24 137/74 (95) 100 01/03/19 04:00 70 01/03/19 04:00 40 01/03/19 04:00 Bi-pap 01/03/19 03:16 64 14 100 Full Face 40 01/03/19 03:00 68 20 121/49 (73) 100 01/03/19 02:00 69 19 129/55 (79) 99 01/03/19 01:46 66 30 99 Full Face 40 01/03/19 01:00 65 23 109/46 (67) 99 01/03/19 00:00 40 01/03/19 00:00 97.7 78 22 126/49 (74) 99 01/03/19 00:00 66 01/03/19 00:00 Bi-pap 01/02/19 23:00 73 23 126/48 (74) 98 01/02/19 22:51 64 26 100 Full Face 40 01/02/19 22:00 40 01/02/19 22:00 69 20 115/50 (71) 97 01/02/19 22:00 67 115/50 01/02/19 21:28 81 18 94 Full Face 40 01/02/19 21:00 64 19 143/50 (81) 100 01/02/19 20:00 Bi-pap 01/02/19 20:00 65 01/02/19 20:00 98.0 67 22 123/50 (74) 100 01/02/19 20:00 50 01/02/19 19:24 66 14 100 Full Face 40 01/02/19 19:23 100 Bi-Pap 40 01/02/19 19:00 68 19 119/46 (70) 100 01/02/19 18:00 65 18 116/43 (67) 98 01/02/19 17:00 57 17 116/49 (71) 98 01/02/19 16:47 70 28 96 Full Face 40 01/02/19 16:46 69 24 97 Bi-Pap 40 01/02/19 16:00 55 01/02/19 16:00 Bi-pap 01/02/19 16:00 97.6 66 18 114/61 (78) 87 Intake and Output 01/02/19 01/03/19 18:59 06:59 Intake Total 517 ml 837 ml Output Total 98 ml 255 ml Balance 419 ml 582 ml IV Total 517 ml 837 ml Output Urine Total 98 ml 255 ml Microbiology Date/Time Source Procedure Growth Status 12/23/18 13:25 Blood Blood Culture - Final NO GROWTH AFTER 5 DAYS Complete 12/23/18 15:45 Urine,Clean Catch Urine Culture - Final NO GROWTH AFTER 48 HOURS Complete 12/25/18 05:00 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 Complete Current Medications Medications (Trade) Dose Ordered Sig/Katie Route PRN Reason Start Time Stop Time Status Last Admin Dose Admin Acetaminophen (Tylenol) 650 mg Q6H PRN RECTAL Mild Pain (Pain Scale 1-3) 01/01/19 13:51 01/31/19 13:50 Bisacodyl (Dulcolax) 10 mg DAILYPRN PRN RECTAL Constipation 01/01/19 13:51 01/31/19 13:50 Chlorhexidine Gluconate (Radhika-Hex 2%) 1 applic DAILY@2000 TOPIC 01/01/19 20:00 01/23/19 19:59 01/02/19 20:11 Diltiazem HCl (Cardizem) 60 mg EVERY 8 HOURS GT 01/01/19 22:00 01/31/19 21:59 Furosemide (Lasix) 20 mg DAILY IV 01/03/19 11:45 02/02/19 11:44 01/03/19 12:00 Heparin Sodium (Porcine) (Heparin 5000 units/ml) 5,000 units EVERY 12 HOURS SUBQ 01/01/19 21:00 01/27/19 20:59 01/03/19 08:16 Methylprednisolone Sodium Succinate (Solu-MEDROL) 20 mg Q12H IV 01/01/19 18:00 01/22/19 21:59 01/03/19 06:10 Pantoprazole (Protonix) 40 mg DAILY IVP 01/02/19 09:00 01/23/19 08:59 01/03/19 08:15 Sodium Hypochlorite (Dakin's Quarter Strength) 1 applic DAILY TOPIC 01/04/19 09:00 02/03/19 08:59 Sodium Chloride 1,000 ml @ 75 mls/hr [id number] IV 01/01/19 17:15 01/31/19 17:14 01/03/19 08:15 Tamsulosin HCl (Flomax) 0.4 mg BEDTIME ORAL 01/01/19 21:00 01/28/19 20:59 Laboratory Tests 01/03/19 03:30: White Blood Count 14.7H, Red Blood Count 3.15L, Hemoglobin 9.1L, Hematocrit 30.1L, Mean Corpuscular Volume 96, Mean Corpuscular Hemoglobin 28.8, Mean Corpuscular Hemoglobin Concent 30.1L, Red Cell Distribution Width 14.6, Platelet Count 129L, Mean Platelet Volume 8.8, Neutrophils (%) (Auto) , Lymphocytes (%) (Auto) , Monocytes (%) (Auto) , Eosinophils (%) (Auto) , Basophils (%) (Auto) , Differential Total Cells Counted 100, Neutrophils % ( Manual) 90H, Lymphocytes % (Manual) 2L, Monocytes % (Manual) 8, Eosinophils % ( Manual) 0, Basophils % (Manual) 0, Band Neutrophils 0, Platelet Estimate DecreasedL, Platelet Morphology Normal, Urine Color Yellow, Urine Appearance Slightly cloudy, Urine pH 6, Urine Specific [place] 1.015, Urine Protein 3+H, Urine Glucose (UA) Negative, Urine Ketones 3+H, Urine Blood 5+H, Urine Nitrite Negative, Urine Bilirubin Negative, Urine Urobilinogen 1H, Urine Leukocyte Esterase 2+H, Urine RBC TntcH, Urine WBC 10-15H, Urine Squamous Epithelial Cells None, Urine Bacteria Few, Sodium Level 145, Potassium Level 4.1, Chloride Level 103, Carbon Dioxide Level 42*H, Anion Gap -1L, Blood Urea Nitrogen 13, Creatinine 0.3L, Estimat Glomerular Filtration Rate , Glucose Level 72L, Calcium Level 8.0L, Total Bilirubin 0.5, Aspartate Amino Transf (AST/SGOT) 17, Alanine Aminotransferase (ALT/SGPT) 22, Alkaline Phosphatase 70, Total Protein 5.2L, Albumin 2.1L, Globulin 3.1, Albumin/Globulin Ratio 0.7L Height (Feet): 5 Height (Inches): 7.00 Weight (Pounds): 119 Objective exam stable scrotum appears smaller Bubba Felix MD Jan 03, 2019 15:40
--- NOTE | 2019-01-03 16:18 | Anethesia Preoperative Eval ---
Anesthesia Pre-op PMH/ROS General Date of Evaluation: Jan 03, 2019 Time of Evaluation: 14:25 Anesthesiologist: Cirilo ASA Score: ASA 4 Mallampati Score Class I : Soft palate, uvula, fauces, pillars visible Class II: Soft palate, uvula, fauces visible Class III: Soft palate, base of uvula visible Class IV: Only hard plate visible Mallampati Classification: Class III Surgeon: Jayson Diagnosis: Respiratory failure Surgical Procedure: Tracheostomy Anesthesia History: none Social History: smoking - h/o Family History: no anesthesia problems Allergies: Coded Allergies: DORZOLAMIDE (Unverified Allergy, Unknown, 12/23/18) LISINOPRIL (Unverified Allergy, Unknown, 12/23/18) TIMOLOL (Unverified Allergy, Unknown, 12/23/18) TIOTROPIUM (Unverified Allergy, Unknown, 12/23/18) Medications: see eMAR Patient NPO?: Yes NPO Date: Dec 23, 2018 NPO Time: 0000 Past Medical History Cardiovascular: Reports: HTN; Denies: CAD, [place], valve dz, arrhythmia, other Pulmonary: Reports: COPD; Denies: asthma, KIP, other Gastrointestinal/Genitourinary: Reports: GERD; Denies: CRI, ESRD, other Neurologic/Psychiatric: Reports: dementia - mild; Denies: CVA, depression/anxiety, TIA, other Endocrine: Reports: hypothyroidism; Denies: DM, steroids, other HEENT: Reports: cataract (L), cataract (R) Hematology/Immune: Reports: anemia; Denies: DVT, bleeding disorder, other Musculoskeletal/Integumentary: Reports: DJD; Denies: OA, RA, DDD, edema, other Other: other - malnourished PMH Narrative: as above PSxH Narrative: see H&P Anesthesia Pre-op Phys. Exam Physician Exam Last Vital Signs Date Time Temp Pulse Resp B/P (MAP) Pulse Ox O2 Delivery O2 Flow Rate FiO2 01/03/19 15:40 78 16 98 01/03/19 15:35 50 01/03/19 14:00 151/62 (91) 01/03/19 12:41 Facial 01/03/19 12:00 99.5 01/01/19 07:07 3.0 Constitutional: NAD Neurologic: other - unable to obtaine Cardiovascular: RRR Respiratory: other - diffuse wheezing Airway Exam Mallampati Score: Class III MO: limited Neck: stiff ROM: limited Teeth: missing Dentures: no upper, no lower Anesthesia Pre-op A/P Labs Hematology Test 01/03/19 03:30 White Blood Count 14.7 K/UL (4.8-10.8) H Red Blood Count 3.15 M/UL (4.70-6.10) L Hemoglobin 9.1 G/DL (14.2-18.0) L Hematocrit 30.1 % (42.0-52.0) L Mean Corpuscular Volume 96 FL (80-99) Mean Corpuscular Hemoglobin 28.8 PG (27.0-31.0) Mean Corpuscular Hemoglobin Concent 30.1 G/DL (32.0-36.0) L Red Cell Distribution Width 14.6 % (11.6-14.8) Platelet Count 129 K/UL (150-450) L Mean Platelet Volume 8.8 FL (6.5-10.1) Neutrophils (%) (Auto) % (45.0-75.0) Lymphocytes (%) (Auto) % (20.0-45.0) Monocytes (%) (Auto) % (1.0-10.0) Eosinophils (%) (Auto) % (0.0-3.0) Basophils (%) (Auto) % (0.0-2.0) Differential Total Cells Counted 100 Neutrophils % (Manual) 90 % (45-75) H Lymphocytes % (Manual) 2 % (20-45) L Monocytes % (Manual) 8 % (1-10) Eosinophils % (Manual) 0 % (0-3) Basophils % (Manual) 0 % (0-2) Band Neutrophils 0 % (0-8) Platelet Estimate Decreased L Platelet Morphology Normal Chemistry Test 01/03/19 03:30 Sodium Level 145 MMOL/L (136-145) Potassium Level 4.1 MMOL/L (3.5-5.1) Chloride Level 103 MMOL/L (98-107) Carbon Dioxide Level 42 MMOL/L (21-32) *H Anion Gap -1 mmol/L (5-15) L Blood Urea Nitrogen 13 mg/dL (7-18) Creatinine 0.3 MG/DL (0.55-1.30) L Estimat Glomerular Filtration Rate mL/min (>60) Glucose Level 72 MG/DL (74-106) L Calcium Level 8.0 MG/DL (8.5-10.1) L Total Bilirubin 0.5 MG/DL (0.2-1.0) Aspartate Amino Transf (AST/SGOT) 17 U/L (15-37) Alanine Aminotransferase (ALT/SGPT) 22 U/L (12-78) Alkaline Phosphatase 70 U/L (46-116) Total Protein 5.2 G/DL (6.4-8.2) L Albumin 2.1 G/DL (3.4-5.0) L Globulin 3.1 g/dL Albumin/Globulin Ratio 0.7 (1.0-2.7) L Risk Assessment & Plan Assessment: ASA 4 Plan: GA Status Change Before Surgery: No Pre-Antibiotics Drug: Ancef 1gr. Given Within 1 Hr of Incision: Yes Time Given: 15:13 Eliseo Kerr MD Jan 03, 2019 16:18
[2019-01-03] MEDS: Dyna-Hex 2% Top Sol 2oz TOPIC SCH (19:55)
[2019-01-03] MEDS: Tamsulosin 0.4mg cap ORAL SCH (21:35)
[2019-01-03] MEDS: D5 1/2NS 1,000 ML IV SCH (22:43)
[2019-01-04] VITALS (25 sets, daily range): BP systolic 106–154; BP diastolic 42–106
--- NOTE | 2019-01-04 04:30 | Progress Note ---
DATE: 01/03/2019 CARDIOLOGY PROGRESS NOTE SUBJECTIVE: The patient is status post tracheostomy today. No complications noted perioperatively. The patient remains on ventilator support. OBJECTIVE: VITAL SIGNS: Blood pressure 123/57, pulse 61, respirations 18. LUNGS: Bilateral breath sounds. No bleeding at trach site. Scattered rhonchi. HEART: Regular rhythm and rate. Normal S1, S2. ABDOMEN: Soft. EXTREMITIES: Trace edema. LABORATORY DATA: White count 14.7, hemoglobin 9.1. Potassium 4.1, bicarb 42, BUN 13, and creatinine 0.3. IMPRESSION: 1. Respiratory failure, status post trach. 2. Sepsis with shock, recovered. 3. Secondary sinus tachycardia. 4. Insulin requiring diabetes mellitus. 5. Chronic obstructive pulmonary disease. 6. Pulmonary hypertension. PLAN: 1. Ventilator support. 2. Respiratory hygiene. 3. Antimicrobials. 4. DVT and stress ulcer prophylaxes. 5. Nutritional support by feeding tube. Cody Melendez M.D. DR: BRYSON JOB#: [id number] CC:
[2019-01-04 04:31] LABS: HEMATOCRIT 29.6 % (42.0-52.0); HEMOGLOBIN 9.2 G/DL (14.2-18.0); MEAN CORPUSCULAR VOLUME 94 FL (80-99); PLATELET COUNT 148 K/UL (150-450); RED BLOOD COUNT 3.16 M/UL (4.70-6.10); RED CELL DISTRIBUTION WIDTH 14.4 % (11.6-14.8); WHITE BLOOD COUNT 14.9 K/UL (4.8-10.8)
[2019-01-04 04:55] LABS: INR 1.3 (0.9-1.1)
[2019-01-04] MEDS: dilTIAZem HCl 60mg tab GT SCH ×3 (06:00→22:00)
[2019-01-04] MEDS: Solu-MEDROL 40mg Inj IV SCH ×2 (06:07→17:44)
[2019-01-04] MEDS: NovoLOG Insulin Flexpen SUBQ SCH ×4 (06:07→21:14)
[2019-01-04 06:33] LABS: ALANINE AMINOTRANSFERASE 22 U/L (12-78); ALBUMIN 2.1 G/DL (3.4-5.0); ALBUMIN/GLOBULIN RATIO 0.7 (1.0-2.7); ALKALINE PHOSPHATASE 68 U/L (46-116); ANION GAP 5 mmol/L (5-15); ASPARTATE AMINO TRANSFERASE 25 U/L (15-37); BILIRUBIN,TOTAL 0.7 MG/DL (0.2-1.0); BLOOD UREA NITROGEN 13 mg/dL (7-18); CALCIUM 7.7 MG/DL (8.5-10.1); CARBON DIOXIDE 38 MMOL/L (21-32); CHLORIDE 99 MMOL/L (98-107); CREATININE 0.4 MG/DL (0.55-1.30); POTASSIUM 3.9 MMOL/L (3.5-5.1); SODIUM 142 MMOL/L (136-145)
--- NOTE | 2019-01-04 07:42 | 48 Hour Post Anesthesia Eval ---
Post Anesthesia Evaluation Procedure: Tracheostomy Date of Evaluation: Jan 04, 2019 Time of Evaluation: 06:34 Blood Pressure Systolic: 125 0: 56 Pulse Rate: 87 Respiratory Rate: 10 Temperature (Fahrenheit): 97.9 O2 Sat by Pulse Oximetry: 100 Airway: patent Nausea: No Vomiting: No Pain Intensity: 0 Hydration Status: adequate Cardiopulmonary Status: 0 Mental Status/LOC: other - ICU Follow-up Care/Observations: 0 Post-Anesthesia Complications: 0 Follow-up care needed: N/A Demetrio Grewal MD Jan 04, 2019 07:42
[2019-01-04] MEDS: Pantoprazole Inj IVP SCH (08:40)
[2019-01-04] MEDS: Heparin 5000 units/ml inj SUBQ SCH ×2 (08:42→21:15)
[2019-01-04] MEDS: Dakin's 0.125% Soln (Quarter Strength) 16oz TOPIC SCH (08:43)
--- NOTE | 2019-01-04 10:20 | Diagnostic Imaging Report ---
Indication: Post nasogastric tube placement Technique: Supine view of the upper abdomen Comparison: 12/30/2018 Findings: There is a nasogastric tube in place, tip of which projects at the level gastric fundus, proximal port projecting above the expected level of the gastroesophageal junction Surgical clips are seen in the right upper quadrant and right pelvis. The bowel gas is grossly unremarkable Impression: Somewhat high position of nasogastric tube, further advancement recommended. Other findings as noted Findings discussed by phone with nurse Ross in the ICU at the time of interpretation
--- NOTE | 2019-01-04 11:51 | Diagnostic Imaging Report ---
Indication: Status post nasogastric tube repositioning Technique: Supine view of the abdomen Comparison: One hour earlier Findings: Interim advancement of nasogastric tube, tip of which now projects in good position at the level gastric antrum, proximal sidehole beyond the gastroesophageal junction. Bowel gas pattern is unchanged Impression: Improved and now satisfactory position of nasogastric tube. ICU nurse notified
[2019-01-04] MEDS: D5 1/2NS 1,000 ML IV SCH (11:52)
--- NOTE | 2019-01-04 14:23 | Urology Progress Note ---
Assessment/Plan Assessment/Plan: 1. Urinary retention. 2. Benign prostatic hypertrophy. 3. Rule out neurogenic bladder. 4. Scrotal enlargement, probable inguinal hernia versus hydrocele. 5. Hematuria. 6. Pyuria. 7. Proteinuria. maintain kline hand irrigated and do PRN on flomax voiding trial later f/u on urine cx abx PRN Subjective Allergies: Coded Allergies: DORZOLAMIDE (Unverified Allergy, Unknown, 12/23/18) LISINOPRIL (Unverified Allergy, Unknown, 12/23/18) TIMOLOL (Unverified Allergy, Unknown, 12/23/18) TIOTROPIUM (Unverified Allergy, Unknown, 12/23/18) Subjective all noted, non-verbal, for trach Objective Last 24 Hour Vital Signs Date Time Temp Pulse Resp B/P (MAP) Pulse Ox O2 Delivery O2 Flow Rate FiO2 01/04/19 13:12 65 10 35 01/04/19 13:00 58 9 125/55 (78) 100 01/04/19 12:00 Mechanical Ventilator 01/04/19 12:00 35 01/04/19 12:00 57 01/04/19 12:00 97.7 59 9 137/56 (83) 100 01/04/19 11:00 83 12 35 01/04/19 11:00 79 16 154/65 (94) 100 01/04/19 10:00 60 7 123/58 (79) 100 01/04/19 09:00 35 01/04/19 09:00 57 0 137/53 (81) 100 01/04/19 08:45 57 10 35 01/04/19 08:00 64 01/04/19 08:00 98.1 55 12 125/56 (79) 100 01/04/19 08:00 Mechanical Ventilator 01/04/19 08:00 50 01/04/19 07:42 87 10 100 01/04/19 07:08 87 10 50 01/04/19 07:00 55 10 125/56 (79) 100 01/04/19 06:00 60 137/56 01/04/19 06:00 61 10 137/56 (83) 100 01/04/19 05:00 60 10 119/55 (76) 100 01/04/19 04:00 97.9 69 11 148/66 (93) 100 01/04/19 04:00 Mechanical Ventilator 01/04/19 04:00 50 01/04/19 04:00 57 01/04/19 03:50 55 10 50 01/04/19 03:00 62 10 141/79 (99) 100 01/04/19 02:00 62 11 130/53 (78) 100 01/04/19 01:11 65 10 50 01/04/19 01:00 62 8 113/56 (75) 100 01/04/19 00:00 Mechanical Ventilator 01/04/19 00:00 63 01/04/19 00:00 97.8 63 6 112/51 (71) 100 01/04/19 00:00 50 01/03/19 23:00 65 10 128/52 (77) 100 01/03/19 22:52 66 10 50 01/03/19 22:00 64 0 135/59 (84) 100 01/03/19 21:46 64 105/50 01/03/19 21:11 65 10 50 01/03/19 21:00 66 4 105/50 (68) 100 01/03/19 20:00 50 01/03/19 20:00 63 01/03/19 20:00 Mechanical Ventilator 01/03/19 20:00 98.1 85 12 129/48 (75) 100 01/03/19 19:27 62 10 50 01/03/19 19:00 65 10 111/52 (71) 100 01/03/19 18:00 71 14 156/73 (100) 100 01/03/19 17:00 66 12 138/75 (96) 100 01/03/19 16:40 71 10 50 01/03/19 16:07 74 01/03/19 16:00 50 01/03/19 16:00 97.9 75 13 129/68 (88) 100 01/03/19 16:00 Mechanical Ventilator 01/03/19 15:40 78 16 98 01/03/19 15:35 79 10 50 Intake and Output 01/03/19 01/04/19 19:00 07:00 Intake Total 825 ml 750 ml Output Total 1160 ml 505 ml Balance -335 ml 245 ml IV Total 825 ml 750 ml Output Urine Total 1160 ml 505 ml # Bowel Movements 1 Microbiology Date/Time Source Procedure Growth Status 12/23/18 13:25 Blood Blood Culture - Final NO GROWTH AFTER 5 DAYS Complete 01/03/19 03:30 Indwelling Cath Urine Culture - Preliminary NO GROWTH AFTER 24 HOURS Resulted 12/25/18 05:00 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 Complete Current Medications Medications (Trade) Dose Ordered Sig/Katie Route PRN Reason Start Time Stop Time Status Last Admin Dose Admin Acetaminophen (Tylenol) 650 mg Q6H PRN RECTAL Mild Pain (Pain Scale 1-3) 01/01/19 13:51 01/31/19 13:50 Bisacodyl (Dulcolax) 10 mg DAILYPRN PRN RECTAL Constipation 01/01/19 13:51 01/31/19 13:50 Chlorhexidine Gluconate (Radhika-Hex 2%) 1 applic DAILY@2000 TOPIC 01/01/19 20:00 01/23/19 19:59 01/03/19 19:55 Dextrose (Dextrose 50%) 25 ml Q30M PRN IV Hypoglycemia 01/03/19 23:00 02/02/19 22:59 Dextrose (Dextrose 50%) 50 ml Q30M PRN IV Hypoglycemia 01/03/19 23:00 02/02/19 22:59 01/03/19 23:02 Dextrose/Sodium Chloride 1,000 ml @ 75 mls/hr [id number] IV 01/03/19 22:45 02/02/19 22:44 01/04/19 11:52 Diltiazem HCl (Cardizem) 60 mg EVERY 8 HOURS GT 01/01/19 22:00 01/31/19 21:59 Furosemide (Lasix) 20 mg DAILY IV 01/03/19 11:45 02/02/19 11:44 01/04/19 08:40 Heparin Sodium (Porcine) (Heparin 5000 units/ml) 5,000 units EVERY 12 HOURS SUBQ 01/01/19 21:00 01/27/19 20:59 01/04/19 08:42 Insulin Aspart (NovoLOG) BEFORE MEALS AND HS SUBQ 01/04/19 06:30 02/03/19 06:29 Methylprednisolone Sodium Succinate (Solu-MEDROL) 20 mg Q12H IV 01/01/19 18:00 01/22/19 21:59 01/04/19 06:07 Pantoprazole (Protonix) 40 mg DAILY IVP 01/02/19 09:00 01/23/19 08:59 01/04/19 08:40 Sodium Hypochlorite (Dakin's Quarter Strength) 1 applic DAILY TOPIC 01/04/19 09:00 02/03/19 08:59 01/04/19 08:43 Tamsulosin HCl (Flomax) 0.4 mg BEDTIME ORAL 01/01/19 21:00 01/28/19 20:59 Laboratory Tests 01/04/19 03:40: White Blood Count 14.9H, Red Blood Count 3.16L, Hemoglobin 9.2L, Hematocrit 29.6L, Mean Corpuscular Volume 94, Mean Corpuscular Hemoglobin 29.1, Mean Corpuscular Hemoglobin Concent 31.0L, Red Cell Distribution Width 14.4, Platelet Count 148L, Mean Platelet Volume 9.4, Neutrophils (%) (Auto) , Lymphocytes (%) (Auto) , Monocytes (%) (Auto) , Eosinophils (%) (Auto) , Basophils (%) (Auto) , Differential Total Cells Counted 100, Neutrophils % ( Manual) 87H, Lymphocytes % (Manual) 5L, Monocytes % (Manual) 8, Eosinophils % ( Manual) 0, Basophils % (Manual) 0, Band Neutrophils 0, Platelet Estimate DecreasedL, Platelet Morphology Normal, Hypochromasia 2+, Anisocytosis 1+, Prothrombin Time 13.2H, Prothromb Time International Ratio 1.3H, Activated Partial Thromboplast Time 28, Sodium Level 142, Potassium Level 3.9, Chloride Level 99, Carbon Dioxide Level 38H, Anion Gap 5, Blood Urea Nitrogen 13, Creatinine 0.4L, Estimat Glomerular Filtration Rate , Glucose Level 101, Calcium Level 7.7L, Total Bilirubin 0.7, Aspartate Amino Transf (AST/SGOT) 25, Alanine Aminotransferase (ALT/SGPT) 22, Alkaline Phosphatase 68, Total Protein 5.0L, Albumin 2.1L, Globulin 2.9, Albumin/Globulin Ratio 0.7L Height (Feet): 5 Height (Inches): 7.00 Weight (Pounds): 124 Objective exam stable scrotum appears smaller Bubba Felix MD Jan 04, 2019 14:23
--- NOTE | 2019-01-04 16:49 | Pulmonology Progress Note ---
Assessment/Plan Assessment/Plan 1. Acute on chronic respiratory failure. 2. 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 3. Cachexia and malnutrition. 4. Atherosclerotic aortic and cardiac disease. 5. History of hypertension, now hypotensive. 6. Urinary tract infection. 7. Diastolic heart failure with edema 8. Glaucoma. 9. Prostate hypertrophy. 10. Anemia. family agreed to trach - done last night on vent, awake, weak will need PEG NGT for feeds adjust vent disc w surgeon Subjective ROS Limited/Unobtainable: Yes Allergies: Coded Allergies: DORZOLAMIDE (Unverified Allergy, Unknown, 12/23/18) LISINOPRIL (Unverified Allergy, Unknown, 12/23/18) TIMOLOL (Unverified Allergy, Unknown, 12/23/18) TIOTROPIUM (Unverified Allergy, Unknown, 12/23/18) Objective Last 24 Hour Vital Signs Date Time Temp Pulse Resp B/P (MAP) Pulse Ox O2 Delivery O2 Flow Rate FiO2 01/04/19 16:00 Mechanical Ventilator 01/04/19 16:00 35 01/04/19 16:00 58 01/04/19 15:47 55 10 134/53 (80) 100 01/04/19 15:04 77 10 35 01/04/19 15:00 75 16 141/106 (118) 100 01/04/19 14:00 54 124/52 01/04/19 14:00 60 12 124/52 (76) 100 01/04/19 13:12 65 10 35 01/04/19 13:00 58 10 125/55 (78) 100 01/04/19 12:00 Mechanical Ventilator 01/04/19 12:00 35 01/04/19 12:00 57 01/04/19 12:00 97.7 59 10 137/56 (83) 100 01/04/19 11:00 83 12 35 01/04/19 11:00 79 16 154/65 (94) 100 01/04/19 10:00 60 10 123/58 (79) 100 01/04/19 09:00 35 01/04/19 09:00 57 10 137/53 (81) 100 01/04/19 08:45 57 10 35 01/04/19 08:00 64 01/04/19 08:00 98.1 55 12 125/56 (79) 100 01/04/19 08:00 Mechanical Ventilator 01/04/19 08:00 50 01/04/19 07:42 87 10 100 01/04/19 07:08 87 10 50 01/04/19 07:00 55 10 125/56 (79) 100 01/04/19 06:00 60 137/56 01/04/19 06:00 61 10 137/56 (83) 100 01/04/19 05:00 60 10 119/55 (76) 100 01/04/19 04:00 97.9 69 11 148/66 (93) 100 01/04/19 04:00 Mechanical Ventilator 01/04/19 04:00 50 01/04/19 04:00 57 01/04/19 03:50 55 10 50 01/04/19 03:00 62 10 141/79 (99) 100 01/04/19 02:00 62 11 130/53 (78) 100 01/04/19 01:11 65 10 50 01/04/19 01:00 62 8 113/56 (75) 100 01/04/19 00:00 Mechanical Ventilator 01/04/19 00:00 63 01/04/19 00:00 97.8 63 6 112/51 (71) 100 01/04/19 00:00 50 01/03/19 23:00 65 10 128/52 (77) 100 01/03/19 22:52 66 10 50 01/03/19 22:00 64 0 135/59 (84) 100 01/03/19 21:46 64 105/50 01/03/19 21:11 65 10 50 01/03/19 21:00 66 4 105/50 (68) 100 01/03/19 20:00 50 01/03/19 20:00 63 01/03/19 20:00 Mechanical Ventilator 01/03/19 20:00 98.1 85 12 129/48 (75) 100 01/03/19 19:27 62 10 50 01/03/19 19:00 65 10 111/52 (71) 100 01/03/19 18:00 71 14 156/73 (100) 100 01/03/19 17:00 66 12 138/75 (96) 100 Intake and Output 01/03/19 01/04/19 18:59 06:59 Intake Total 825 ml 750 ml Output Total 1055 ml 590 ml Balance -230 ml 160 ml IV Total 825 ml 750 ml Output Urine Total 1055 ml 590 ml # Bowel Movements 1 Objective trach/vent General Appearance: no acute distress, cachetic HEENT: atraumatic Respiratory/Chest: lungs clear, decreased breath sounds Cardiovascular: normal rate Abdomen: soft, non tender, hernia - scrotal Extremities: other - ++ edema Microbiology Date/Time Source Procedure Growth Status 01/03/19 03:30 Indwelling Cath Urine Culture - Preliminary NO GROWTH AFTER 24 HOURS Resulted Laboratory Tests 01/04/19 03:40: White Blood Count 14.9H, Red Blood Count 3.16L, Hemoglobin 9.2L, Hematocrit 29.6L, Mean Corpuscular Volume 94, Mean Corpuscular Hemoglobin 29.1, Mean Corpuscular Hemoglobin Concent 31.0L, Red Cell Distribution Width 14.4, Platelet Count 148L, Mean Platelet Volume 9.4, Neutrophils (%) (Auto) , Lymphocytes (%) (Auto) , Monocytes (%) (Auto) , Eosinophils (%) (Auto) , Basophils (%) (Auto) , Differential Total Cells Counted 100, Neutrophils % ( Manual) 87H, Lymphocytes % (Manual) 5L, Monocytes % (Manual) 8, Eosinophils % ( Manual) 0, Basophils % (Manual) 0, Band Neutrophils 0, Platelet Estimate DecreasedL, Platelet Morphology Normal, Hypochromasia 2+, Anisocytosis 1+, Prothrombin Time 13.2H, Prothromb Time International Ratio 1.3H, Activated Partial Thromboplast Time 28, Sodium Level 142, Potassium Level 3.9, Chloride Level 99, Carbon Dioxide Level 38H, Anion Gap 5, Blood Urea Nitrogen 13, Creatinine 0.4L, Estimat Glomerular Filtration Rate , Glucose Level 101, Calcium Level 7.7L, Total Bilirubin 0.7, Aspartate Amino Transf (AST/SGOT) 25, Alanine Aminotransferase (ALT/SGPT) 22, Alkaline Phosphatase 68, Total Protein 5.0L, Albumin 2.1L, Globulin 2.9, Albumin/Globulin Ratio 0.7L Current Medications Medications (Trade) Dose Ordered Sig/Katie Route PRN Reason Start Time Stop Time Status Last Admin Dose Admin Acetaminophen (Tylenol) 650 mg Q6H PRN RECTAL Mild Pain (Pain Scale 1-3) 01/01/19 13:51 01/31/19 13:50 Bisacodyl (Dulcolax) 10 mg DAILYPRN PRN RECTAL Constipation 01/01/19 13:51 01/31/19 13:50 Chlorhexidine Gluconate (Radhika-Hex 2%) 1 applic DAILY@2000 TOPIC 01/01/19 20:00 01/23/19 19:59 01/03/19 19:55 Dextrose (Dextrose 50%) 25 ml Q30M PRN IV Hypoglycemia 01/03/19 23:00 02/02/19 22:59 Dextrose (Dextrose 50%) 50 ml Q30M PRN IV Hypoglycemia 01/03/19 23:00 02/02/19 22:59 01/03/19 23:02 Dextrose/Sodium Chloride 1,000 ml @ 75 mls/hr [id number] IV 01/03/19 22:45 02/02/19 22:44 01/04/19 11:52 Diltiazem HCl (Cardizem) 60 mg EVERY 8 HOURS GT 01/01/19 22:00 01/31/19 21:59 Furosemide (Lasix) 20 mg DAILY IV 01/03/19 11:45 02/02/19 11:44 01/04/19 08:40 Heparin Sodium (Porcine) (Heparin 5000 units/ml) 5,000 units EVERY 12 HOURS SUBQ 01/01/19 21:00 01/27/19 20:59 01/04/19 08:42 Insulin Aspart (NovoLOG) BEFORE MEALS AND HS SUBQ 01/04/19 06:30 02/03/19 06:29 01/04/19 16:35 Methylprednisolone Sodium Succinate (Solu-MEDROL) 20 mg Q12H IV 01/01/19 18:00 01/22/19 21:59 01/04/19 06:07 Pantoprazole (Protonix) 40 mg DAILY IVP 01/02/19 09:00 01/23/19 08:59 01/04/19 08:40 Sodium Hypochlorite (Dakin's Quarter Strength) 1 applic DAILY TOPIC 01/04/19 09:00 02/03/19 08:59 01/04/19 08:43 Tamsulosin HCl (Flomax) 0.4 mg BEDTIME ORAL 01/01/19 21:00 01/28/19 20:59 Eliseo Pena MD Jan 04, 2019 16:49
--- NOTE | 2019-01-04 19:21 | Surgery Progress Note ---
Surgery Progress Note Subjective Procedure Performed Tracheostomy Additional Comments Status post trach. Comfortable appearing. Dressing clean dry intact Continue with current care Wean as tolerated Objective Last 24 Hour Vital Signs Date Time Temp Pulse Resp B/P (MAP) Pulse Ox O2 Delivery O2 Flow Rate FiO2 01/04/19 19:00 58 11 120/47 (71) 100 01/04/19 18:44 60 10 35 01/04/19 18:00 57 11 120/47 (71) 100 01/04/19 17:03 54 10 35 01/04/19 17:00 55 10 125/47 (73) 100 01/04/19 16:00 98.1 52 14 138/51 (80) 100 01/04/19 16:00 Mechanical Ventilator 01/04/19 16:00 35 01/04/19 16:00 58 01/04/19 15:47 55 10 134/53 (80) 100 01/04/19 15:04 77 10 35 01/04/19 15:00 75 16 141/106 (118) 100 01/04/19 14:00 54 124/52 01/04/19 14:00 60 12 124/52 (76) 100 01/04/19 13:12 65 10 35 01/04/19 13:00 58 10 125/55 (78) 100 01/04/19 12:00 Mechanical Ventilator 01/04/19 12:00 35 01/04/19 12:00 57 01/04/19 12:00 97.7 59 10 137/56 (83) 100 01/04/19 11:00 83 12 35 01/04/19 11:00 79 16 154/65 (94) 100 01/04/19 10:00 60 10 123/58 (79) 100 01/04/19 09:00 35 01/04/19 09:00 57 10 137/53 (81) 100 01/04/19 08:45 57 10 35 01/04/19 08:00 64 01/04/19 08:00 98.1 55 12 125/56 (79) 100 01/04/19 08:00 Mechanical Ventilator 01/04/19 08:00 50 01/04/19 07:42 87 10 100 01/04/19 07:08 87 10 50 01/04/19 07:00 55 10 125/56 (79) 100 01/04/19 06:00 60 137/56 01/04/19 06:00 61 10 137/56 (83) 100 01/04/19 05:00 60 10 119/55 (76) 100 01/04/19 04:00 97.9 69 11 148/66 (93) 100 01/04/19 04:00 Mechanical Ventilator 01/04/19 04:00 50 01/04/19 04:00 57 01/04/19 03:50 55 10 50 01/04/19 03:00 62 10 141/79 (99) 100 01/04/19 02:00 62 11 130/53 (78) 100 01/04/19 01:11 65 10 50 01/04/19 01:00 62 8 113/56 (75) 100 01/04/19 00:00 Mechanical Ventilator 01/04/19 00:00 63 01/04/19 00:00 97.8 63 6 112/51 (71) 100 01/04/19 00:00 50 01/03/19 23:00 65 10 128/52 (77) 100 01/03/19 22:52 66 10 50 01/03/19 22:00 64 0 135/59 (84) 100 01/03/19 21:46 64 105/50 01/03/19 21:11 65 10 50 01/03/19 21:00 66 4 105/50 (68) 100 01/03/19 20:00 50 01/03/19 20:00 63 01/03/19 20:00 Mechanical Ventilator 01/03/19 20:00 98.1 85 12 129/48 (75) 100 01/03/19 19:27 62 10 50 I&O Intake and Output 01/03/19 01/04/19 18:59 06:59 Intake Total 825 ml 750 ml Output Total 1055 ml 590 ml Balance -230 ml 160 ml IV Total 825 ml 750 ml Output Urine Total 1055 ml 590 ml # Bowel Movements 1 Laboratory Tests Test 01/04/19 03:40 White Blood Count 14.9 K/UL (4.8-10.8) H Red Blood Count 3.16 M/UL (4.70-6.10) L Hemoglobin 9.2 G/DL (14.2-18.0) L Hematocrit 29.6 % (42.0-52.0) L Mean Corpuscular Volume 94 FL (80-99) Mean Corpuscular Hemoglobin 29.1 PG (27.0-31.0) Mean Corpuscular Hemoglobin Concent 31.0 G/DL (32.0-36.0) L Red Cell Distribution Width 14.4 % (11.6-14.8) Platelet Count 148 K/UL (150-450) L Mean Platelet Volume 9.4 FL (6.5-10.1) Neutrophils (%) (Auto) % (45.0-75.0) Lymphocytes (%) (Auto) % (20.0-45.0) Monocytes (%) (Auto) % (1.0-10.0) Eosinophils (%) (Auto) % (0.0-3.0) Basophils (%) (Auto) % (0.0-2.0) Differential Total Cells Counted 100 Neutrophils % (Manual) 87 % (45-75) H Lymphocytes % (Manual) 5 % (20-45) L Monocytes % (Manual) 8 % (1-10) Eosinophils % (Manual) 0 % (0-3) Basophils % (Manual) 0 % (0-2) Band Neutrophils 0 % (0-8) Platelet Estimate Decreased L Platelet Morphology Normal Hypochromasia 2+ Anisocytosis 1+ Prothrombin Time 13.2 SEC (9.30-11.50) H Prothromb Time International Ratio 1.3 (0.9-1.1) H Activated Partial Thromboplast Time 28 SEC (23-33) Sodium Level 142 MMOL/L (136-145) Potassium Level 3.9 MMOL/L (3.5-5.1) Chloride Level 99 MMOL/L (98-107) Carbon Dioxide Level 38 MMOL/L (21-32) H Anion Gap 5 mmol/L (5-15) Blood Urea Nitrogen 13 mg/dL (7-18) Creatinine 0.4 MG/DL (0.55-1.30) L Estimat Glomerular Filtration Rate mL/min (>60) Glucose Level 101 MG/DL (74-106) Calcium Level 7.7 MG/DL (8.5-10.1) L Total Bilirubin 0.7 MG/DL (0.2-1.0) Aspartate Amino Transf (AST/SGOT) 25 U/L (15-37) Alanine Aminotransferase (ALT/SGPT) 22 U/L (12-78) Alkaline Phosphatase 68 U/L (46-116) Total Protein 5.0 G/DL (6.4-8.2) L Albumin 2.1 G/DL (3.4-5.0) L Globulin 2.9 g/dL Albumin/Globulin Ratio 0.7 (1.0-2.7) L Plan Problems: (1) Failure to thrive in adult Assessment & Plan: DAILY ESTIMATED NEEDS: Needs based on Wound healing, Pulmonary, Underweight/ 49.5kg 30-40 kcals/kg 0134-0347 total kcals 1.25-1.8 g protein/kg 62-89 g total protein 25-30 mL/kg 7338-3090 total fluid mLs NUTRITION DIAGNOSIS: Increased kcal/prot needs R/T underweight status, wound healing, severe COPD per MD as evidenced by pt is 73% IBW w/ BMI of 17.0, admitted w/ advanced sacral and rt elbow wounds, unstageable BL heel wounds, pending eval, currently on BIPAP, NPO. CURRENT DIET:NPO PO DIET RECOMMENDATIONS: WHEN SAFE FOR ORAL DIET AND OFF BIPAP -> regular/ texture per VIAL GAUGER ENTERAL NUTRITION RECOMMENDATIONS: CONSULT RD FOR TF REC IF INDICATED AND PART OF POC ADDITIONAL RECOMMENDATIONS: * Per SNF: HT=67", TM=[id number] (as of 12/21) -> rec calibrated bedscale wt, weekly wt monitoring * VIAL GAUGER evaluation prior to oral diet * Ensure Enlive TID w/ meals w/ oral diet * Wound healing: when able for oral meds -> add MVI w/ min x 1, Vit C 500mg BID, ZnSO4 220mg QD x 10 days -> Gaetano 1pkt BID (2) Malnutrition (3) Decubitus skin ulcer Assessment & Plan: Pt presented on admission with multiple pressure injuries. 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 Base of wound has 95% slough. 5% viable. Bone is palpable. Edges macerated. Non- blanching erythema periwound. No odor noted. Hyperpigmentation with surrounding darker skin tone without induration. Full thickness stage 4 sacral pressure injury with undermining . Base of wound has 60% slough, 40% oscar. Bone is palpable. Small amt brown exudate. Mild odor noted. Periwound darker skin tone noted. (L)7cm x (W)7.3cm x (D)2.5cm, undermining clockwise 8 -3 by 3.8cm @9o'clock. Necrotic area noted to R ischium.Periwound is intact.(L)0.4cm x (W)1.3cm. Stable dry eschar medial/lateral R foot (L)2.2cm x (W)1.5cm. periwound is intact. Black area without induration or fluctuance noted to distal/lateral R foot. (L) 1.5cm x (W)1.8cm. Stable dry eschar dorso/flexor R foot 0.4cm x (W)2.5cm. Unstageable pressure injury R heel. Base of wound is 100% necrotic . Periwound is boggy but no erythema noted (L)6.5cm x (W)7cm. Unstageable pressure injury L heel. Base of wound is 100% necrotic(L)1.5cm x (W) 2.5cm with surrounding pink epithelial bordered by hyperpigmentation(L)4cm x (W) 4.4cm. Reducible LIH Tx.Plan: Cleanse Sacral wound with Dakin's 0.125% mike. Loosely pack with Dakin's moistened kerlix. Apply Moisture Barrier Paste periwound. Cover with Optifoam drsg Twice Daily and prn. Cleanse R elbow with Dakin's 0.125% mike. Loosely pack with dakin's moist Kerlix gauze. Apply Moisture Barrier paste periwound.Cover with Optifoam drsg. Twice Daily and prn. Apply Betadine to R and L heels. Cover with Optifoam drsg. Change every 3 days and prn. Apply Betadine to necrotic areas Lateral R foot and dorso /flexor R foot. Cover each wound with Optifoam drsg every 3 days and prn. Apply Moisture Barrier paste to R ischium. Cover with Optifoam drsg. Change every 3 days and prn. Air Fluidized mattress. Reposition at least every 2hours or as tolerated. Off-load heels with pillow. Elevate R and L elbows with pillow. (4) Sepsis Assessment & Plan: leukocytosis tachypnea improved CXR noted labs noted respiratory decline intubate? candidate for early trach awaiting decision from POA for care plan trach and peg or comfort care? needs nutrition cont abx IV fluids feeds and nutritional support will monitor LIH will follow with recs (5) Respiratory failure (6) Left elbow contusion Sher Keene Jan 04, 2019 19:21
[2019-01-04] MEDS: Dyna-Hex 2% Top Sol 2oz TOPIC SCH (20:08)
[2019-01-04] MEDS: Tamsulosin 0.4mg cap ORAL SCH (21:11)
[2019-01-05] VITALS (24 sets, daily range): BP systolic 89–146; BP diastolic 39–76
--- NOTE | 2019-01-05 03:45 | Progress Note ---
DATE: 01/04/2019 CARDIOLOGY PROGRESS NOTE SUBJECTIVE: The patient is status post tracheostomy without complications. He remains on ventilator support. He has NG tube for nutrition, but a G-tube is planned. OBJECTIVE: VITAL SIGNS: Blood pressure 134/53, pulse 55, and respiratory rate 10. Monitor sinus and sinus bradycardia. LUNGS: Coarse breath sounds. Few rhonchi. HEART: Regular rhythm and rate. Normal S1 and S2. ABDOMEN: Soft. EXTREMITIES: No edema. LABORATORY DATA: White count 14.9 and hemoglobin 9.2. BUN 13, creatinine 0.4, bicarb 38, sodium 142, and potassium 3.9. IMPRESSION: 1. Acute on chronic respiratory acidosis. 2. Contraction alkalosis. 3. Compensatory metabolic alkalosis. 4. Severe protein-calorie malnutrition. 5. Anemia. 6. History of sepsis with recovered shock. 7. Sinus bradycardia. 8. Chronic diastolic congestive heart failure. PLAN: 1. Await G-tube. 2. Continue respiratory therapy and ventilator support. 3. Hold diuresis. 4. Monitor acid-base parameters. 5. We will follow. Cody Melendez M.D. DR: MARITO JOB#: [id number] CC:
[2019-01-05 05:15] LABS: HEMATOCRIT 29.6 % (42.0-52.0); HEMOGLOBIN 9.2 G/DL (14.2-18.0); MEAN CORPUSCULAR VOLUME 93 FL (80-99); PLATELET COUNT 160 K/UL (150-450); RED BLOOD COUNT 3.16 M/UL (4.70-6.10); RED CELL DISTRIBUTION WIDTH 14.9 % (11.6-14.8); WHITE BLOOD COUNT 18.4 K/UL (4.8-10.8)
[2019-01-05 05:30] LABS: ALANINE AMINOTRANSFERASE 19 U/L (12-78); ALBUMIN/GLOBULIN RATIO 0.7 (1.0-2.7); ALKALINE PHOSPHATASE 98 U/L (46-116); ANION GAP 1 mmol/L (5-15); ASPARTATE AMINO TRANSFERASE 20 U/L (15-37); BILIRUBIN,TOTAL 0.6 MG/DL (0.2-1.0); BLOOD UREA NITROGEN 15 mg/dL (7-18); CALCIUM 7.5 MG/DL (8.5-10.1); CARBON DIOXIDE 40 MMOL/L (21-32); CHLORIDE 96 MMOL/L (98-107); CREATININE 0.4 MG/DL (0.55-1.30); POTASSIUM 3.9 MMOL/L (3.5-5.1); SODIUM 138 MMOL/L (136-145)
[2019-01-05] MEDS: Solu-MEDROL 40mg Inj IV SCH ×2 (06:25→17:45)
[2019-01-05] MEDS: dilTIAZem HCl 60mg tab GT SCH ×3 (06:28→22:45)
[2019-01-05] MEDS: NovoLOG Insulin Flexpen SUBQ SCH ×4 (06:31→23:49)
--- NOTE | 2019-01-05 08:46 | Diagnostic Imaging Report ---
EXAM: XR Chest, 1 View CLINICAL HISTORY: SOB TECHNIQUE: Frontal view of the chest. COMPARISON: Chest x-ray 01/02/19 FINDINGS: Lungs: Hyperinflated lungs of COPD. Worsening right lower lobe airspace disease. Pleural space: Worsening small right pleural effusion. Query tiny left pleural effusion. No pneumothorax. Heart: Unremarkable. No cardiomegaly. Mediastinum: Unremarkable. Bones/joints: Unremarkable. Tubes, lines and devices: Interval placement of tracheostomy tube, tip 4.5 cm above the jostin. Interval placement of NG tube traverses diaphragm to the stomach, tip is not seen. Right IJ catheter to the cavoatrial junction in good position, stable. IMPRESSION: 1. Hyperinflated lungs of COPD. 2. Worsening right lower lobe airspace disease. 3. Worsening small right pleural effusion. Query tiny left pleural effusion. 4. Interval placement of tracheostomy tube and NG tube traverses diaphragm in good position. Right IJ catheter in good position, stable.
--- NOTE | 2019-01-05 08:52 | Urology Progress Note ---
Assessment/Plan Assessment/Plan: 1. Urinary retention. 2. Benign prostatic hypertrophy. 3. Rule out neurogenic bladder. 4. Scrotal enlargement, probable inguinal hernia versus hydrocele. 5. Hematuria. 6. Pyuria. 7. Proteinuria. maintain kline hand irrigated and do PRN on flomax voiding trial later abx PRN Subjective Allergies: Coded Allergies: DORZOLAMIDE (Unverified Allergy, Unknown, 12/23/18) LISINOPRIL (Unverified Allergy, Unknown, 12/23/18) TIMOLOL (Unverified Allergy, Unknown, 12/23/18) TIOTROPIUM (Unverified Allergy, Unknown, 12/23/18) Subjective all noted, non-verbal, for trach Objective Last 24 Hour Vital Signs Date Time Temp Pulse Resp B/P (MAP) Pulse Ox O2 Delivery O2 Flow Rate FiO2 01/05/19 08:00 Mechanical Ventilator 01/05/19 08:00 98.2 67 20 103/45 (64) 100 01/05/19 08:00 21 01/05/19 07:11 99 15 21 01/05/19 07:00 94 15 110/41 (64) 97 01/05/19 06:28 91 115/59 01/05/19 06:00 96 18 115/59 (77) 100 01/05/19 05:15 83 10 35 01/05/19 05:00 95 20 120/49 (72) 97 01/05/19 04:00 73 01/05/19 04:00 Mechanical Ventilator 01/05/19 04:00 21 01/05/19 04:00 98.2 73 20 109/51 (70) 97 01/05/19 03:00 72 20 116/51 (72) 99 01/05/19 03:00 67 10 35 01/05/19 02:00 70 16 89/47 (61) 100 01/05/19 01:16 61 10 35 01/05/19 01:00 62 9 91/39 (56) 100 01/05/19 00:00 98.0 59 10 107/68 (81) 100 01/05/19 00:00 21 01/05/19 00:00 Mechanical Ventilator 01/05/19 00:00 54 01/04/19 23:10 59 10 35 01/04/19 23:00 57 11 106/45 (65) 100 01/04/19 22:00 57 120/47 01/04/19 22:00 64 16 129/42 (71) 99 01/04/19 21:25 57 10 35 01/04/19 21:00 59 12 141/44 (76) 100 01/04/19 20:00 98.0 57 11 113/42 (65) 100 01/04/19 20:00 Mechanical Ventilator 01/04/19 20:00 35 01/04/19 20:00 58 01/04/19 19:00 58 11 120/47 (71) 100 01/04/19 18:44 60 10 35 01/04/19 18:00 57 11 120/47 (71) 100 01/04/19 17:03 54 10 35 01/04/19 17:00 55 10 125/47 (73) 100 01/04/19 16:00 98.1 52 14 138/51 (80) 100 01/04/19 16:00 Mechanical Ventilator 01/04/19 16:00 35 01/04/19 16:00 58 01/04/19 15:47 55 10 134/53 (80) 100 01/04/19 15:04 77 10 35 01/04/19 15:00 75 16 141/106 (118) 100 01/04/19 14:00 54 124/52 01/04/19 14:00 60 12 124/52 (76) 100 01/04/19 13:12 65 10 35 01/04/19 13:00 58 10 125/55 (78) 100 01/04/19 12:00 Mechanical Ventilator 01/04/19 12:00 35 01/04/19 12:00 57 01/04/19 12:00 97.7 59 10 137/56 (83) 100 01/04/19 11:00 83 12 35 01/04/19 11:00 79 16 154/65 (94) 100 01/04/19 10:00 60 10 123/58 (79) 100 01/04/19 09:00 35 01/04/19 09:00 57 10 137/53 (81) 100 Intake and Output 01/04/19 01/05/19 19:00 07:00 Intake Total 1060.00 ml 878.75 ml Output Total 1180 ml 400 ml Balance -120.00 ml 478.75 ml IV Total 900.00 ml 323.75 ml Tube Feeding 160 ml 555 ml Output Urine Total 1180 ml 400 ml # Bowel Movements 1 2 Microbiology Date/Time Source Procedure Growth Status 12/23/18 13:25 Blood Blood Culture - Final NO GROWTH AFTER 5 DAYS Complete 01/03/19 16:22 Sputum Expectorated Gram Stain - Final Resulted 01/03/19 16:22 Sputum Expectorated Sputum Culture Pending Resulted 01/03/19 03:30 Indwelling Cath Urine Culture - Final NO GROWTH AFTER 48 HOURS Complete 12/25/18 05:00 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 Complete Current Medications Medications (Trade) Dose Ordered Sig/Katie Route PRN Reason Start Time Stop Time Status Last Admin Dose Admin Acetaminophen (Tylenol) 650 mg Q6H PRN RECTAL Mild Pain (Pain Scale 1-3) 01/01/19 13:51 01/31/19 13:50 Bisacodyl (Dulcolax) 10 mg DAILYPRN PRN RECTAL Constipation 01/01/19 13:51 01/31/19 13:50 Chlorhexidine Gluconate (Radhika-Hex 2%) 1 applic DAILY@1999 TOPIC 01/01/19 20:00 01/23/19 19:59 01/04/19 20:08 Dextrose (Dextrose 50%) 25 ml Q30M PRN IV Hypoglycemia 01/03/19 23:00 02/02/19 22:59 Dextrose (Dextrose 50%) 50 ml Q30M PRN IV Hypoglycemia 01/03/19 23:00 02/02/19 22:59 01/03/19 23:02 Diltiazem HCl (Cardizem) 60 mg EVERY 8 HOURS GT 01/01/19 22:00 01/31/19 21:59 01/05/19 06:28 Furosemide (Lasix) 20 mg DAILY IV 01/03/19 11:45 02/02/19 11:44 01/04/19 08:40 Heparin Sodium (Porcine) (Heparin 5000 units/ml) 5,000 units EVERY 12 HOURS SUBQ 01/01/19 21:00 01/27/19 20:59 01/04/19 21:15 Insulin Aspart (NovoLOG) BEFORE MEALS AND HS SUBQ 01/04/19 06:30 02/03/19 06:29 01/05/19 06:31 Methylprednisolone Sodium Succinate (Solu-MEDROL) 20 mg Q12H IV 01/01/19 18:00 01/22/19 21:59 01/05/19 06:25 Pantoprazole (Protonix) 40 mg DAILY IVP 01/02/19 09:00 01/23/19 08:59 01/04/19 08:40 Sodium Hypochlorite (Dakin's Quarter Strength) 1 applic DAILY TOPIC 01/04/19 09:00 02/03/19 08:59 01/04/19 08:43 Tamsulosin HCl (Flomax) 0.4 mg BEDTIME ORAL 01/01/19 21:00 01/28/19 20:59 01/04/19 21:11 Laboratory Tests 01/05/19 04:00: White Blood Count 18.4H, Red Blood Count 3.16L, Hemoglobin 9.2L, Hematocrit 29.6L, Mean Corpuscular Volume 93, Mean Corpuscular Hemoglobin 29.2, Mean Corpuscular Hemoglobin Concent 31.2L, Red Cell Distribution Width 14.9H, Platelet Count 160, Mean Platelet Volume 8.7, Neutrophils (%) (Auto) , Lymphocytes (%) (Auto) , Monocytes (%) (Auto) , Eosinophils (%) (Auto) , Basophils (%) (Auto) , Differential Total Cells Counted 100, Neutrophils % ( Manual) 88H, Lymphocytes % (Manual) 4L, Monocytes % (Manual) 8, Eosinophils % ( Manual) 0, Basophils % (Manual) 0, Band Neutrophils 0, Platelet Estimate Adequate, Platelet Morphology Normal, Hypochromasia 2+, Sodium Level 138, Potassium Level 3.9, Chloride Level 96L, Carbon Dioxide Level 40H, Anion Gap 1L , Blood Urea Nitrogen 15, Creatinine 0.4L, Estimat Glomerular Filtration Rate , Glucose Level 192H, Calcium Level 7.5L, Total Bilirubin 0.6, Aspartate Amino Transf (AST/SGOT) 20, Alanine Aminotransferase (ALT/SGPT) 19, Alkaline Phosphatase 98, Total Protein 5.0L, Albumin 2.0L, Globulin 3.0, Albumin/ Globulin Ratio 0.7L Height (Feet): 5 Height (Inches): 7.00 Weight (Pounds): 116 Objective exam stable scrotum appears smaller Bubba Felix MD Jan 05, 2019 08:52
[2019-01-05] MEDS: Dakin's 0.125% Soln (Quarter Strength) 16oz TOPIC SCH ×2 (09:00→09:27)
--- NOTE | 2019-01-05 09:15 | Pulmonology Progress Note ---
Assessment/Plan Assessment/Plan 1. Acute on chronic respiratory failure. 2. 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 3. Cachexia and malnutrition. 4. Atherosclerotic aortic and cardiac disease. 5. History of hypertension, now hypotensive. 6. Urinary tract infection. 7. Diastolic heart failure with edema 8. Glaucoma. 9. Prostate hypertrophy. 10. Anemia. sat 98% on 21% FiO2 will need PEG NGT for feeds ABG disc w GI Subjective ROS Limited/Unobtainable: Yes Allergies: Coded Allergies: DORZOLAMIDE (Unverified Allergy, Unknown, 12/23/18) LISINOPRIL (Unverified Allergy, Unknown, 12/23/18) TIMOLOL (Unverified Allergy, Unknown, 12/23/18) TIOTROPIUM (Unverified Allergy, Unknown, 12/23/18) Objective Last 24 Hour Vital Signs Date Time Temp Pulse Resp B/P (MAP) Pulse Ox O2 Delivery O2 Flow Rate FiO2 01/05/19 08:00 Mechanical Ventilator 01/05/19 08:00 98.2 67 20 103/45 (64) 100 01/05/19 08:00 21 01/05/19 07:11 99 15 21 01/05/19 07:00 94 15 110/41 (64) 97 01/05/19 06:28 91 115/59 01/05/19 06:00 96 18 115/59 (77) 100 01/05/19 05:15 83 10 35 01/05/19 05:00 95 20 120/49 (72) 97 01/05/19 04:00 73 01/05/19 04:00 Mechanical Ventilator 01/05/19 04:00 21 01/05/19 04:00 98.2 73 20 109/51 (70) 97 01/05/19 03:00 72 20 116/51 (72) 99 01/05/19 03:00 67 10 35 01/05/19 02:00 70 16 89/47 (61) 100 01/05/19 01:16 61 10 35 01/05/19 01:00 62 9 91/39 (56) 100 01/05/19 00:00 98.0 59 10 107/68 (81) 100 01/05/19 00:00 21 01/05/19 00:00 Mechanical Ventilator 01/05/19 00:00 54 01/04/19 23:10 59 10 35 01/04/19 23:00 57 11 106/45 (65) 100 01/04/19 22:00 57 120/47 01/04/19 22:00 64 16 129/42 (71) 99 01/04/19 21:25 57 10 35 01/04/19 21:00 59 12 141/44 (76) 100 01/04/19 20:00 98.0 57 11 113/42 (65) 100 01/04/19 20:00 Mechanical Ventilator 01/04/19 20:00 35 01/04/19 20:00 58 01/04/19 19:00 58 11 120/47 (71) 100 01/04/19 18:44 60 10 35 01/04/19 18:00 57 11 120/47 (71) 100 01/04/19 17:03 54 10 35 01/04/19 17:00 55 10 125/47 (73) 100 01/04/19 16:00 98.1 52 14 138/51 (80) 100 01/04/19 16:00 Mechanical Ventilator 01/04/19 16:00 35 01/04/19 16:00 58 01/04/19 15:47 55 10 134/53 (80) 100 01/04/19 15:04 77 10 35 01/04/19 15:00 75 16 141/106 (118) 100 01/04/19 14:00 54 124/52 01/04/19 14:00 60 12 124/52 (76) 100 01/04/19 13:12 65 10 35 01/04/19 13:00 58 10 125/55 (78) 100 01/04/19 12:00 Mechanical Ventilator 01/04/19 12:00 35 01/04/19 12:00 57 01/04/19 12:00 97.7 59 10 137/56 (83) 100 01/04/19 11:00 83 12 35 01/04/19 11:00 79 16 154/65 (94) 100 01/04/19 10:00 60 10 123/58 (79) 100 Intake and Output 01/04/19 01/05/19 19:00 07:00 Intake Total 1060.00 ml 878.75 ml Output Total 1180 ml 400 ml Balance -120.00 ml 478.75 ml IV Total 900.00 ml 323.75 ml Tube Feeding 160 ml 555 ml Output Urine Total 1180 ml 400 ml # Bowel Movements 1 2 Objective trach/vent General Appearance: no acute distress, cachetic HEENT: atraumatic Respiratory/Chest: lungs clear, decreased breath sounds Cardiovascular: normal rate Microbiology Date/Time Source Procedure Growth Status 01/03/19 16:22 Sputum Expectorated Gram Stain - Final Resulted 01/03/19 16:22 Sputum Expectorated Sputum Culture Pending Resulted 01/03/19 03:30 Indwelling Cath Urine Culture - Final NO GROWTH AFTER 48 HOURS Complete Laboratory Tests 01/05/19 04:00: White Blood Count 18.4H, Red Blood Count 3.16L, Hemoglobin 9.2L, Hematocrit 29.6L, Mean Corpuscular Volume 93, Mean Corpuscular Hemoglobin 29.2, Mean Corpuscular Hemoglobin Concent 31.2L, Red Cell Distribution Width 14.9H, Platelet Count 160, Mean Platelet Volume 8.7, Neutrophils (%) (Auto) , Lymphocytes (%) (Auto) , Monocytes (%) (Auto) , Eosinophils (%) (Auto) , Basophils (%) (Auto) , Differential Total Cells Counted 100, Neutrophils % ( Manual) 88H, Lymphocytes % (Manual) 4L, Monocytes % (Manual) 8, Eosinophils % ( Manual) 0, Basophils % (Manual) 0, Band Neutrophils 0, Platelet Estimate Adequate, Platelet Morphology Normal, Hypochromasia 2+, Sodium Level 138, Potassium Level 3.9, Chloride Level 96L, Carbon Dioxide Level 40H, Anion Gap 1L , Blood Urea Nitrogen 15, Creatinine 0.4L, Estimat Glomerular Filtration Rate , Glucose Level 192H, Calcium Level 7.5L, Total Bilirubin 0.6, Aspartate Amino Transf (AST/SGOT) 20, Alanine Aminotransferase (ALT/SGPT) 19, Alkaline Phosphatase 98, Total Protein 5.0L, Albumin 2.0L, Globulin 3.0, Albumin/ Globulin Ratio 0.7L Current Medications Medications (Trade) Dose Ordered Sig/Katie Route PRN Reason Start Time Stop Time Status Last Admin Dose Admin Acetaminophen (Tylenol) 650 mg Q6H PRN RECTAL Mild Pain (Pain Scale 1-3) 01/01/19 13:51 01/31/19 13:50 Bisacodyl (Dulcolax) 10 mg DAILYPRN PRN RECTAL Constipation 01/01/19 13:51 01/31/19 13:50 Chlorhexidine Gluconate (Radhika-Hex 2%) 1 applic DAILY@2000 TOPIC 01/01/19 20:00 01/23/19 19:59 01/04/19 20:08 Dextrose (Dextrose 50%) 25 ml Q30M PRN IV Hypoglycemia 01/03/19 23:00 02/02/19 22:59 Dextrose (Dextrose 50%) 50 ml Q30M PRN IV Hypoglycemia 01/03/19 23:00 02/02/19 22:59 01/03/19 23:02 Diltiazem HCl (Cardizem) 60 mg EVERY 8 HOURS GT 01/01/19 22:00 01/31/19 21:59 01/05/19 06:28 Furosemide (Lasix) 20 mg DAILY IV 01/03/19 11:45 02/02/19 11:44 01/04/19 08:40 Heparin Sodium (Porcine) (Heparin 5000 units/ml) 5,000 units EVERY 12 HOURS SUBQ 01/01/19 21:00 01/27/19 20:59 01/04/19 21:15 Insulin Aspart (NovoLOG) BEFORE MEALS AND HS SUBQ 01/04/19 06:30 02/03/19 06:29 01/05/19 06:31 Methylprednisolone Sodium Succinate (Solu-MEDROL) 20 mg Q12H IV 01/01/19 18:00 01/22/19 21:59 01/05/19 06:25 Pantoprazole (Protonix) 40 mg DAILY IVP 01/02/19 09:00 01/23/19 08:59 01/04/19 08:40 Sodium Hypochlorite (Dakin's Quarter Strength) 1 applic DAILY TOPIC 01/04/19 09:00 02/03/19 08:59 01/04/19 08:43 Tamsulosin HCl (Flomax) 0.4 mg BEDTIME ORAL 01/01/19 21:00 01/28/19 20:59 01/04/19 21:11 Eliseo Pena MD Jan 05, 2019 09:15
[2019-01-05] MEDS: Pantoprazole Inj IVP SCH (09:27)
[2019-01-05] MEDS: Heparin 5000 units/ml inj SUBQ SCH ×2 (09:28→21:00)
[2019-01-05] MEDS: Levalbuterol Inh UD 1.25mg/0.5ml HHN SCH ×3 (11:49→19:30)
--- NOTE | 2019-01-05 13:15 | General Progress Note ---
Assessment/Plan Assessment/Plan: GI CONSULT D/W family Will place PEG in am Thank you Barry Bermeo MD Subjective Allergies: Coded Allergies: DORZOLAMIDE (Unverified Allergy, Unknown, 12/23/18) LISINOPRIL (Unverified Allergy, Unknown, 12/23/18) TIMOLOL (Unverified Allergy, Unknown, 12/23/18) TIOTROPIUM (Unverified Allergy, Unknown, 12/23/18) Objective Last 24 Hour Vital Signs Date Time Temp Pulse Resp B/P (MAP) Pulse Ox O2 Delivery O2 Flow Rate FiO2 01/05/19 13:00 96 21 109/60 (76) 99 01/05/19 12:16 90 01/05/19 12:00 21 01/05/19 12:00 Mechanical Ventilator 01/05/19 12:00 98.0 79 20 96/55 (69) 100 01/05/19 11:29 83 13 100 Mechanical Ventilator 21 90 10 21 01/05/19 11:00 86 21 105/51 (69) 96 01/05/19 10:00 100 21 112/58 (76) 97 01/05/19 09:22 88 12 21 01/05/19 09:00 99 26 141/51 (81) 99 01/05/19 08:00 Mechanical Ventilator 01/05/19 08:00 98.2 67 20 103/45 (64) 100 01/05/19 08:00 21 01/05/19 07:59 84 01/05/19 07:11 99 15 21 01/05/19 07:00 94 15 110/41 (64) 97 01/05/19 06:28 91 115/59 01/05/19 06:00 96 18 115/59 (77) 100 01/05/19 05:15 83 10 35 01/05/19 05:00 95 20 120/49 (72) 97 01/05/19 04:00 73 01/05/19 04:00 Mechanical Ventilator 01/05/19 04:00 21 01/05/19 04:00 98.2 73 20 109/51 (70) 97 01/05/19 03:00 72 20 116/51 (72) 99 01/05/19 03:00 67 10 35 01/05/19 02:00 70 16 89/47 (61) 100 01/05/19 01:16 61 10 35 11/28/19 01:00 62 9 91/39 (56) 100 01/05/19 00:00 98.0 59 10 107/68 (81) 100 01/05/19 00:00 21 01/05/19 00:00 Mechanical Ventilator 01/05/19 00:00 54 01/04/19 23:10 59 10 35 01/04/19 23:00 57 11 106/45 (65) 100 01/04/19 22:00 57 120/47 01/04/19 22:00 64 16 129/42 (71) 99 01/04/19 21:25 57 10 35 01/04/19 21:00 59 12 141/44 (76) 100 01/04/19 20:00 98.0 57 11 113/42 (65) 100 01/04/19 20:00 Mechanical Ventilator 01/04/19 20:00 35 01/04/19 20:00 58 01/04/19 19:00 58 11 120/47 (71) 100 01/04/19 18:44 60 10 35 01/04/19 18:00 57 11 120/47 (71) 100 01/04/19 17:03 54 10 35 01/04/19 17:00 55 10 125/47 (73) 100 01/04/19 16:00 98.1 52 14 138/51 (80) 100 01/04/19 16:00 Mechanical Ventilator 01/04/19 16:00 35 01/04/19 16:00 58 01/04/19 15:47 55 10 134/53 (80) 100 01/04/19 15:04 77 10 35 01/04/19 15:00 75 16 141/106 (118) 100 01/04/19 14:00 54 124/52 01/04/19 14:00 60 12 124/52 (76) 100 Intake and Output 01/04/19 01/05/19 19:00 07:00 Intake Total 1060.00 ml 878.75 ml Output Total 1180 ml 400 ml Balance -120.00 ml 478.75 ml IV Total 900.00 ml 323.75 ml Tube Feeding 160 ml 555 ml Output Urine Total 1180 ml 400 ml # Bowel Movements 1 2 Laboratory Tests 01/05/19 04:00: White Blood Count 18.4H, Red Blood Count 3.16L, Hemoglobin 9.2L, Hematocrit 29.6L, Mean Corpuscular Volume 93, Mean Corpuscular Hemoglobin 29.2, Mean Corpuscular Hemoglobin Concent 31.2L, Red Cell Distribution Width 14.9H, Platelet Count 160, Mean Platelet Volume 8.7, Neutrophils (%) (Auto) , Lymphocytes (%) (Auto) , Monocytes (%) (Auto) , Eosinophils (%) (Auto) , Basophils (%) (Auto) , Differential Total Cells Counted 100, Neutrophils % ( Manual) 88H, Lymphocytes % (Manual) 4L, Monocytes % (Manual) 8, Eosinophils % ( Manual) 0, Basophils % (Manual) 0, Band Neutrophils 0, Platelet Estimate Adequate, Platelet Morphology Normal, Hypochromasia 2+, Sodium Level 138, Potassium Level 3.9, Chloride Level 96L, Carbon Dioxide Level 40H, Anion Gap 1L , Blood Urea Nitrogen 15, Creatinine 0.4L, Estimat Glomerular Filtration Rate , Glucose Level 192H, Calcium Level 7.5L, Total Bilirubin 0.6, Aspartate Amino Transf (AST/SGOT) 20, Alanine Aminotransferase (ALT/SGPT) 19, Alkaline Phosphatase 98, Total Protein 5.0L, Albumin 2.0L, Globulin 3.0, Albumin/ Globulin Ratio 0.7L Height (Feet): 5 Height (Inches): 7.00 Weight (Pounds): 116 Barry Bermeo MD Jan 05, 2019 13:15
--- NOTE | 2019-01-05 13:20 | Surgery Progress Note ---
Surgery Progress Note Subjective Procedure Performed Tracheostomy Symptoms: improved Objective Last 24 Hour Vital Signs Date Time Temp Pulse Resp B/P (MAP) Pulse Ox O2 Delivery O2 Flow Rate FiO2 01/05/19 13:00 96 21 109/60 (76) 99 01/05/19 12:16 90 01/05/19 12:00 21 01/05/19 12:00 Mechanical Ventilator 01/05/19 12:00 98.0 79 20 96/55 (69) 100 01/05/19 11:29 83 13 100 Mechanical Ventilator 21 90 10 21 01/05/19 11:00 86 21 105/51 (69) 96 01/05/19 10:00 100 21 112/58 (76) 97 01/05/19 09:22 88 12 21 01/05/19 09:00 99 26 141/51 (81) 99 01/05/19 08:00 Mechanical Ventilator 01/05/19 08:00 98.2 67 20 103/45 (64) 100 01/05/19 08:00 21 01/05/19 07:59 84 01/05/19 07:11 99 15 21 01/05/19 07:00 94 15 110/41 (64) 97 01/05/19 06:28 91 115/59 01/05/19 06:00 96 18 115/59 (77) 100 01/05/19 05:15 83 10 35 01/05/19 05:00 95 20 120/49 (72) 97 01/05/19 04:00 73 01/05/19 04:00 Mechanical Ventilator 01/05/19 04:00 21 01/05/19 04:00 98.2 73 20 109/51 (70) 97 01/05/19 03:00 72 20 116/51 (72) 99 01/05/19 03:00 67 10 35 01/05/19 02:00 70 16 89/47 (61) 100 01/05/19 01:16 61 10 35 01/05/19 01:00 62 9 91/39 (56) 100 01/05/19 00:00 98.0 59 10 107/68 (81) 100 01/05/19 00:00 21 01/05/19 00:00 Mechanical Ventilator 01/05/19 00:00 54 01/04/19 23:10 59 10 35 01/04/19 23:00 57 11 106/45 (65) 100 01/04/19 22:00 57 120/47 01/04/19 22:00 64 16 129/42 (71) 99 01/04/19 21:25 57 10 35 01/04/19 21:00 59 12 141/44 (76) 100 01/04/19 20:00 98.0 57 11 113/42 (65) 100 01/04/19 20:00 Mechanical Ventilator 01/04/19 20:00 35 01/04/19 20:00 58 01/04/19 19:00 58 11 120/47 (71) 100 01/04/19 18:44 60 10 35 01/04/19 18:00 57 11 120/47 (71) 100 01/04/19 17:03 54 10 35 01/04/19 17:00 55 10 125/47 (73) 100 01/04/19 16:00 98.1 52 14 138/51 (80) 100 01/04/19 16:00 Mechanical Ventilator 01/04/19 16:00 35 01/04/19 16:00 58 01/04/19 15:47 55 10 134/53 (80) 100 01/04/19 15:04 77 10 35 01/04/19 15:00 75 16 141/106 (118) 100 01/04/19 14:00 54 124/52 01/04/19 14:00 60 12 124/52 (76) 100 I&O Intake and Output 01/04/19 01/05/19 19:00 07:00 Intake Total 1060.00 ml 878.75 ml Output Total 1180 ml 400 ml Balance -120.00 ml 478.75 ml IV Total 900.00 ml 323.75 ml Tube Feeding 160 ml 555 ml Output Urine Total 1180 ml 400 ml # Bowel Movements 1 2 Dressing: other Wound: other Drains: other Cardiovascular: RSR Respiratory: decreased breath sounds Abdomen: soft, present bowel sounds Extremities: no cyanosis Laboratory Tests Test 01/05/19 04:00 White Blood Count 18.4 K/UL (4.8-10.8) H Red Blood Count 3.16 M/UL (4.70-6.10) L Hemoglobin 9.2 G/DL (14.2-18.0) L Hematocrit 29.6 % (42.0-52.0) L Mean Corpuscular Volume 93 FL (80-99) Mean Corpuscular Hemoglobin 29.2 PG (27.0-31.0) Mean Corpuscular Hemoglobin Concent 31.2 G/DL (32.0-36.0) L Red Cell Distribution Width 14.9 % (11.6-14.8) H Platelet Count 160 K/UL (150-450) Mean Platelet Volume 8.7 FL (6.5-10.1) Neutrophils (%) (Auto) % (45.0-75.0) Lymphocytes (%) (Auto) % (20.0-45.0) Monocytes (%) (Auto) % (1.0-10.0) Eosinophils (%) (Auto) % (0.0-3.0) Basophils (%) (Auto) % (0.0-2.0) Differential Total Cells Counted 100 Neutrophils % (Manual) 88 % (45-75) H Lymphocytes % (Manual) 4 % (20-45) L Monocytes % (Manual) 8 % (1-10) Eosinophils % (Manual) 0 % (0-3) Basophils % (Manual) 0 % (0-2) Band Neutrophils 0 % (0-8) Platelet Estimate Adequate Platelet Morphology Normal Hypochromasia 2+ Sodium Level 138 MMOL/L (136-145) Potassium Level 3.9 MMOL/L (3.5-5.1) Chloride Level 96 MMOL/L (98-107) L Carbon Dioxide Level 40 MMOL/L (21-32) H Anion Gap 1 mmol/L (5-15) L Blood Urea Nitrogen 15 mg/dL (7-18) Creatinine 0.4 MG/DL (0.55-1.30) L Estimat Glomerular Filtration Rate mL/min (>60) Glucose Level 192 MG/DL (74-106) H Calcium Level 7.5 MG/DL (8.5-10.1) L Total Bilirubin 0.6 MG/DL (0.2-1.0) Aspartate Amino Transf (AST/SGOT) 20 U/L (15-37) Alanine Aminotransferase (ALT/SGPT) 19 U/L (12-78) Alkaline Phosphatase 98 U/L (46-116) Total Protein 5.0 G/DL (6.4-8.2) L Albumin 2.0 G/DL (3.4-5.0) L Globulin 3.0 g/dL Albumin/Globulin Ratio 0.7 (1.0-2.7) L Plan Problems: (1) Failure to thrive in adult Assessment & Plan: DAILY ESTIMATED NEEDS: Needs based on Wound healing, Pulmonary, Underweight/ 49.5kg 30-40 kcals/kg 3244-0751 total kcals 1.25-1.8 g protein/kg 62-89 g total protein 25-30 mL/kg [id number] total fluid mLs NUTRITION DIAGNOSIS: Increased kcal/prot needs R/T underweight status, wound healing, severe COPD per MD as evidenced by pt is 73% IBW w/ BMI of 17.0, admitted w/ advanced sacral and rt elbow wounds, unstageable BL heel wounds, pending eval, currently on BIPAP, NPO. CURRENT DIET:NPO PO DIET RECOMMENDATIONS: WHEN SAFE FOR ORAL DIET AND OFF BIPAP -> regular/ texture per [employer] ENTERAL NUTRITION RECOMMENDATIONS: CONSULT RD FOR TF REC IF INDICATED AND PART OF POC ADDITIONAL RECOMMENDATIONS: * Per SNF: HT=67", GH=855ujy (as of 12/21) -> rec calibrated bedscale wt, weekly wt monitoring * H[employer] evaluation prior to oral diet * Ensure Enlive TID w/ meals w/ oral diet * Wound healing: when able for oral meds -> add MVI w/ min x 1, Vit C 500mg BID, ZnSO4 220mg QD x 10 days -> Gaetano 1pkt BID (2) Malnutrition (3) Decubitus skin ulcer Assessment & Plan: Pt presented on admission with multiple pressure injuries. 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 Base of wound has 95% slough. 5% viable. Bone is palpable. Edges macerated. Non- blanching erythema periwound. No odor noted. Hyperpigmentation with surrounding darker skin tone without induration. Full thickness stage 4 sacral pressure injury with undermining . Base of wound has 60% slough, 40% oscar. Bone is palpable. Small amt brown exudate. Mild odor noted. Periwound darker skin tone noted. (L)7cm x (W)7.3cm x (D)2.5cm, undermining clockwise 8 -3 by 3.8cm @9o'clock. Necrotic area noted to R ischium.Periwound is intact.(L)0.4cm x (W)1.3cm. Stable dry eschar medial/lateral R foot (L)2.2cm x (W)1.5cm. periwound is intact. Black area without induration or fluctuance noted to distal/lateral R foot. (L) 1.5cm x (W)1.8cm. Stable dry eschar dorso/flexor R foot 0.4cm x (W)2.5cm. Unstageable pressure injury R heel. Base of wound is 100% necrotic . Periwound is boggy but no erythema noted (L)6.5cm x (W)7cm. Unstageable pressure injury L heel. Base of wound is 100% necrotic(L)1.5cm x (W) 2.5cm with surrounding pink epithelial bordered by hyperpigmentation(L)4cm x (W) 4.4cm. Reducible LIH Tx.Plan: Cleanse Sacral wound with Dakin's 0.125% mike. Loosely pack with Dakin's moistened kerlix. Apply Moisture Barrier Paste periwound. Cover with Optifoam drsg Twice Daily and prn. Cleanse R elbow with Dakin's 0.125% mike. Loosely pack with dakin's moist Kerlix gauze. Apply Moisture Barrier paste periwound.Cover with Optifoam drsg. Twice Daily and prn. Apply Betadine to R and L heels. Cover with Optifoam drsg. Change every 3 days and prn. Apply Betadine to necrotic areas Lateral R foot and dorso /flexor R foot. Cover each wound with Optifoam drsg every 3 days and prn. Apply Moisture Barrier paste to R ischium. Cover with Optifoam drsg. Change every 3 days and prn. Air Fluidized mattress. Reposition at least every 2hours or as tolerated. Off-load heels with pillow. Elevate R and L elbows with pillow. (4) Sepsis Assessment & Plan: leukocytosis tachypnea improved CXR noted labs noted respiratory decline intubate? candidate for early trach awaiting decision from POA for care plan trach and peg or comfort care? needs nutrition cont abx IV fluids feeds and nutritional support will monitor LIH will follow with recs (5) Respiratory failure (6) Left elbow contusion Sher Keene Jan 05, 2019 13:20
[2019-01-05] MEDS ORDERED: D5 1/2NS 1000ml IV ONE (13:27)
[2019-01-05] MEDS: Dyna-Hex 2% Top Sol 2oz TOPIC SCH (20:03)
--- NOTE | 2019-01-05 20:45 | Consultation ---
DATE OF CONSULTATION: 01/05/2019 GASTROENTEROLOGY CONSULTATION CONSULTING PHYSICIAN: Barry Bermeo M.D. REFERRING PHYSICIAN: Eliseo Pena M.D. CHIEF COMPLAINT: I was asked to see this patient by Dr. Eliseo Pena for evaluation of gastrostomy tube placement. HISTORY OF PRESENT ILLNESS: The patient is a debilitated unfortunate 88-year-old man with multiple medical problems who was admitted to the emergency room with a state of shock. He has had respiratory failure, which has now required tracheostomy, which was placed two days ago. This consultation was obtained for placement of gastrostomy tube. The patient himself was unable to provide any history and most of the information is only available from the chart. PAST MEDICAL HISTORY: History of COPD, respiratory failure, congestive heart failure, hypertension, coronary artery disease, glaucoma, gastroesophageal reflux disease, osteoarthritis, prostatic hypertrophy, anemia of chronic disease, hematuria. PAST SURGICAL HISTORY: The patient had abdominal scar ALLERGIES: Dorzolamide, lisinopril, timolol, tiotropium, Spiriva. MEDICATIONS: See chart list for details. FAMILY HISTORY: Noncontributory. SOCIAL HISTORY: The patient is from a retirement. The indications and risks of the procedure were explained the patient's niece and daughter, who manages the patient's affairs, and informed consent was obtained. PHYSICAL EXAMINATION: GENERAL: A debilitated, thin, man, seen in the ICU. HEENT: Normocephalic and atraumatic. NECK: Showed a tracheostomy. CHEST: Showed coarse breath sounds. CARDIOVASCULAR: Revealed regular rate. ABDOMEN: Soft and flat. EXTREMITIES: Revealed no edema. LABORATORY DATA: Noted. ASSESSMENT: This patient has undergone tracheostomy tube placement and therefore required a gastrostomy tube placement for long-term enteral access and feeding. The indications, risks, alternatives, and possible complications of procedure were explained to the patient's durable power of prosecuting attorney and therefore consent was obtained. RECOMMENDATIONS: 1. Keep the patient NPO after midnight. 2. Endoscopy with gastrostomy tube placement tomorrow. Thank you for asking me to participate in the care of this patient. Barry Bermeo M.D. DR: EVON JOB#: [id number] CC: KRYSTLE
[2019-01-05] MEDS: Tamsulosin 0.4mg cap ORAL SCH (20:48)
[2019-01-06] VITALS (24 sets, daily range): BP systolic 89–132; BP diastolic 19–84
[2019-01-06] MEDS: Levalbuterol Inh UD 1.25mg/0.5ml HHN SCH ×7 (00:22→23:04)
[2019-01-06] MEDS: Solu-MEDROL 40mg Inj IV SCH ×2 (05:22→17:25)
[2019-01-06] MEDS: dilTIAZem HCl 60mg tab GT SCH ×3 (05:23→22:00)
[2019-01-06 05:28] LABS: HEMATOCRIT 25.3 % (42.0-52.0); HEMOGLOBIN 8.1 G/DL (14.2-18.0); MEAN CORPUSCULAR VOLUME 93 FL (80-99); PLATELET COUNT 156 K/UL (150-450); RED BLOOD COUNT 2.72 M/UL (4.70-6.10); RED CELL DISTRIBUTION WIDTH 14.6 % (11.6-14.8); WHITE BLOOD COUNT 18.5 K/UL (4.8-10.8)
[2019-01-06] MEDS: NovoLOG Insulin Flexpen SUBQ SCH ×3 (06:00→17:28)
[2019-01-06 06:05] LABS: ALANINE AMINOTRANSFERASE 20 U/L (12-78); ALBUMIN 1.9 G/DL (3.4-5.0); ALBUMIN/GLOBULIN RATIO 0.7 (1.0-2.7); ALKALINE PHOSPHATASE 104 U/L (46-116); ANION GAP 1 mmol/L (5-15); ASPARTATE AMINO TRANSFERASE 17 U/L (15-37); BILIRUBIN,TOTAL 0.5 MG/DL (0.2-1.0); BLOOD UREA NITROGEN 17 mg/dL (7-18); CALCIUM 7.7 MG/DL (8.5-10.1); CHLORIDE 101 MMOL/L (98-107); CREATININE 0.4 MG/DL (0.55-1.30); POTASSIUM 3.8 MMOL/L (3.5-5.1); SODIUM 143 MMOL/L (136-145)
[2019-01-06 06:07] LABS: CARBON DIOXIDE 40 MMOL/L (21-32)
[2019-01-06] MEDS: Heparin 5000 units/ml inj SUBQ SCH ×2 (07:51→21:03)
[2019-01-06] MEDS: Pantoprazole Inj IVP SCH (08:08)
[2019-01-06] MEDS: Dakin's 0.125% Soln (Quarter Strength) 16oz TOPIC SCH (08:09)
[2019-01-06] MEDS ORDERED: ceFAZolin sod 1 GM in D5W 55 ML IVPB SCH (08:30)
[2019-01-06] MEDS ORDERED: Propofol 200mg/20ml IV ONE (10:00)
[2019-01-06] MEDS ORDERED: fentaNYL 100 mcg/2 mL IV ONE (10:00)
--- NOTE | 2019-01-06 10:15 | Urology Progress Note ---
Assessment/Plan Assessment/Plan: 1. Urinary retention. 2. Benign prostatic hypertrophy. 3. Rule out neurogenic bladder. 4. Scrotal enlargement, probable inguinal hernia versus hydrocele. 5. Hematuria. 6. Pyuria. 7. Proteinuria. maintain kline hand irrigated and do PRN on flomax voiding trial later abx PRN Subjective Allergies: Coded Allergies: DORZOLAMIDE (Unverified Allergy, Unknown, 12/23/18) LISINOPRIL (Unverified Allergy, Unknown, 12/23/18) TIMOLOL (Unverified Allergy, Unknown, 12/23/18) TIOTROPIUM (Unverified Allergy, Unknown, 12/23/18) Subjective all noted, non-verbal, for trach Objective Last 24 Hour Vital Signs Date Time Temp Pulse Resp B/P (MAP) Pulse Ox O2 Delivery O2 Flow Rate FiO2 01/06/19 10:00 63 13 110/40 (63) 100 01/06/19 09:00 65 11 92/36 (54) 97 01/06/19 08:50 85 12 21 01/06/19 08:00 21 01/06/19 08:00 Mechanical Ventilator 01/06/19 08:00 98.1 80 26 116/46 (69) 95 01/06/19 07:40 76 10 100 Mechanical Ventilator 21 90 11 21 01/06/19 07:00 79 15 107/34 (58) 94 01/06/19 06:00 83 26 103/38 (59) 94 01/06/19 05:30 90 14 21 01/06/19 05:23 98 122/51 01/06/19 05:00 78 13 122/51 (74) 100 01/06/19 04:00 21 01/06/19 04:00 77 01/06/19 04:00 Mechanical Ventilator 01/06/19 04:00 98.2 79 18 102/58 (73) 96 01/06/19 03:30 89 11 100 Mechanical Ventilator 21 90 11 21 01/06/19 03:00 85 17 89/61 (70) 95 01/06/19 02:00 91 24 128/37 (67) 95 01/06/19 01:00 93 18 106/56 (73) 100 01/06/19 00:22 84 14 99 Mechanical Ventilator 21 86 10 21 01/06/19 00:00 21 01/06/19 00:00 Mechanical Ventilator 01/06/19 00:00 98.0 76 8 110/50 (70) 97 01/06/19 00:00 87 01/05/19 23:00 91 15 146/49 (81) 95 01/05/19 22:45 87 127/57 01/05/19 22:00 85 16 112/44 (66) 99 01/05/19 21:32 85 15 21 01/05/19 21:15 88 11 21 01/05/19 21:00 82 16 90/39 (56) 100 01/05/19 20:00 104 01/05/19 20:00 Mechanical Ventilator 01/05/19 20:00 21 01/05/19 20:00 97.8 91 16 112/76 (88) 100 01/05/19 19:30 86 10 100 Mechanical Ventilator 21 86 10 21 01/05/19 19:00 100 21 125/52 (76) 99 01/05/19 18:00 99 22 125/47 (73) 99 01/05/19 17:29 81 13 21 01/05/19 17:00 85 22 117/47 (70) 96 01/05/19 16:08 101 01/05/19 16:00 Mechanical Ventilator 01/05/19 16:00 21 01/05/19 16:00 98.4 76 20 95/47 (63) 100 01/05/19 15:25 78 11 100 Mechanical Ventilator 21 90 10 21 01/05/19 15:00 85 22 114/52 (72) 99 01/05/19 14:09 100 112/59 01/05/19 14:00 100 22 112/59 (76) 98 01/05/19 13:29 95 16 21 01/05/19 13:00 96 21 109/60 (76) 99 01/05/19 12:16 90 01/05/19 12:00 21 01/05/19 12:00 Mechanical Ventilator 01/05/19 12:00 98.0 79 20 96/55 (69) 100 01/05/19 11:29 83 13 100 Mechanical Ventilator 21 90 10 21 01/05/19 11:00 86 21 105/51 (69) 96 Intake and Output 01/05/19 01/06/19 19:00 07:00 Intake Total 1010 ml 410 ml Output Total 570 ml 760 ml Balance 440 ml -350 ml Free Water 300 ml 150 ml Tube Feeding 650 ml 200 ml Other 60 ml 60 ml Output Urine Total 570 ml 760 ml # Bowel Movements 1 1 Microbiology Date/Time Source Procedure Growth Status 12/23/18 13:25 Blood Blood Culture - Final NO GROWTH AFTER 5 DAYS Complete 01/03/19 16:22 Sputum Expectorated Gram Stain - Final Resulted 01/03/19 16:22 Sputum Culture - Preliminary YEAST Usual Respiratory Jeniffer Resulted 01/03/19 03:30 Indwelling Cath Urine Culture - Final NO GROWTH AFTER 48 HOURS Complete 12/25/18 05:00 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 Complete Current Medications Medications (Trade) Dose Ordered Sig/Katie Route PRN Reason Start Time Stop Time Status Last Admin Dose Admin Acetaminophen (Tylenol) 650 mg Q6H PRN RECTAL Mild Pain (Pain Scale 1-3) 01/01/19 13:51 01/31/19 13:50 Bisacodyl (Dulcolax) 10 mg DAILYPRN PRN RECTAL Constipation 01/01/19 13:51 01/31/19 13:50 Chlorhexidine Gluconate (Radhika-Hex 2%) 1 applic DAILY@1999 TOPIC 01/01/19 20:00 01/23/19 19:59 01/05/19 20:03 Dextrose (Dextrose 50%) 25 ml Q30M PRN IV Hypoglycemia 01/03/19 23:00 02/02/19 22:59 Dextrose (Dextrose 50%) 50 ml Q30M PRN IV Hypoglycemia 01/03/19 23:00 02/02/19 22:59 01/03/19 23:02 Diltiazem HCl (Cardizem) 60 mg EVERY 8 HOURS GT 01/01/19 22:00 01/31/19 21:59 01/06/19 05:23 Furosemide (Lasix) 20 mg DAILY IV 01/03/19 11:45 02/02/19 11:44 01/06/19 08:09 Heparin Sodium (Porcine) (Heparin 5000 units/ml) 5,000 units EVERY 12 HOURS SUBQ 01/01/19 21:00 01/27/19 20:59 01/05/19 09:28 Insulin Aspart (NovoLOG) EVERY 6 HOURS SUBQ 01/05/19 18:00 02/03/19 06:29 11/28/19 23:49 Levalbuterol HCl (Xopenex) 1.25 mg Q4HRT HHN 01/05/19 11:00 01/10/19 10:59 01/06/19 07:40 Methylprednisolone Sodium Succinate (Solu-MEDROL) 20 mg Q12H IV 01/01/19 18:00 01/22/19 21:59 01/06/19 05:22 Pantoprazole (Protonix) 40 mg DAILY IVP 01/02/19 09:00 01/23/19 08:59 01/06/19 08:08 Sodium Hypochlorite (Dakin's Quarter Strength) 1 applic DAILY TOPIC 01/04/19 09:00 02/03/19 08:59 01/06/19 08:09 Tamsulosin HCl (Flomax) 0.4 mg BEDTIME ORAL 01/01/19 21:00 01/28/19 20:59 01/05/19 20:48 Laboratory Tests 01/06/19 03:45: White Blood Count 18.5H, Red Blood Count 2.72L, Hemoglobin 8.1L, Hematocrit 25.3L, Mean Corpuscular Volume 93, Mean Corpuscular Hemoglobin 29.9, Mean Corpuscular Hemoglobin Concent 32.1, Red Cell Distribution Width 14.6, Platelet Count 156, Mean Platelet Volume 9.5, Neutrophils (%) (Auto) , Lymphocytes (%) ( Auto) , Monocytes (%) (Auto) , Eosinophils (%) (Auto) , Basophils (%) (Auto) , Differential Total Cells Counted 100, Neutrophils % (Manual) 93H, Lymphocytes % (Manual) 4L, Monocytes % (Manual) 3, Eosinophils % (Manual) 0, Basophils % ( Manual) 0, Band Neutrophils 0, Platelet Estimate Adequate, Platelet Morphology Normal, Anisocytosis 1+, Sodium Level 143, Potassium Level 3.8, Chloride Level 101, Carbon Dioxide Level 40H, Anion Gap 1L, Blood Urea Nitrogen 17, Creatinine 0.4L, Estimat Glomerular Filtration Rate , Glucose Level 128H, Calcium Level 7.7L, Total Bilirubin 0.5, Aspartate Amino Transf (AST/SGOT) 17, Alanine Aminotransferase (ALT/SGPT) 20, Alkaline Phosphatase 104, Total Protein 4.7L, Albumin 1.9L, Globulin 2.8, Albumin/Globulin Ratio 0.7L Height (Feet): 5 Height (Inches): 7.00 Weight (Pounds): 110 Objective exam stable scrotum appears smaller Bubba Felix MD Jan 06, 2019 10:15
--- NOTE | 2019-01-06 10:29 | Anethesia Preoperative Eval ---
Anesthesia Pre-op PMH/ROS General Date of Evaluation: Jan 06, 2019 Time of Evaluation: 10:24 Anesthesiologist: Cirilo ASA Score: ASA 4 Mallampati Score Class I : Soft palate, uvula, fauces, pillars visible Class II: Soft palate, uvula, fauces visible Class III: Soft palate, base of uvula visible Class IV: Only hard plate visible Mallampati Classification: Class III Surgeon: Glory Diagnosis: Dysphagia Surgical Procedure: EGD Peg tube placement Anesthesia History: none Social History: smoking - h/o Family History: no anesthesia problems Allergies: Coded Allergies: DORZOLAMIDE (Unverified Allergy, Unknown, 12/23/18) LISINOPRIL (Unverified Allergy, Unknown, 12/23/18) TIMOLOL (Unverified Allergy, Unknown, 12/23/18) TIOTROPIUM (Unverified Allergy, Unknown, 12/23/18) Medications: see eMAR Patient NPO?: Yes NPO Date: Dec 23, 2018 NPO Time: 0000 Past Medical History Cardiovascular: Reports: HTN; Denies: CAD, ME, valve dz, arrhythmia, other Pulmonary: Reports: COPD; Denies: asthma, KIP, other Gastrointestinal/Genitourinary: 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 Exam Physician Exam Last Vital Signs Date Time Temp Pulse Resp B/P (MAP) Pulse Ox O2 Delivery O2 Flow Rate FiO2 01/06/19 10:00 63 13 110/40 (63) 100 01/06/19 08:50 21 01/06/19 08:00 Mechanical Ventilator 01/06/19 08:00 98.1 01/01/19 07:07 3.0 Constitutional: NAD Neurologic: other - unable Cardiovascular: RRR Respiratory: other - diffuse wheezing Gastrointestinal: S/NT/ND Airway Exam Mallampati Score: Class III - tracheostomy in place MO: limited Neck: stiff ROM: limited Teeth: missing Dentures: no upper, no lower Anesthesia Pre-op A/P Labs Hematology Test 01/06/19 03:45 White Blood Count 18.5 K/UL (4.8-10.8) H Red Blood Count 2.72 M/UL (4.70-6.10) L Hemoglobin 8.1 G/DL (14.2-18.0) L Hematocrit 25.3 % (42.0-52.0) L Mean Corpuscular Volume 93 FL (80-99) Mean Corpuscular Hemoglobin 29.9 PG (27.0-31.0) Mean Corpuscular Hemoglobin Concent 32.1 G/DL (32.0-36.0) Red Cell Distribution Width 14.6 % (11.6-14.8) Platelet Count 156 K/UL (150-450) Mean Platelet Volume 9.5 FL (6.5-10.1) Neutrophils (%) (Auto) % (45.0-75.0) Lymphocytes (%) (Auto) % (20.0-45.0) Monocytes (%) (Auto) % (1.0-10.0) Eosinophils (%) (Auto) % (0.0-3.0) Basophils (%) (Auto) % (0.0-2.0) Differential Total Cells Counted 100 Neutrophils % (Manual) 93 % (45-75) H Lymphocytes % (Manual) 4 % (20-45) L Monocytes % (Manual) 3 % (1-10) Eosinophils % (Manual) 0 % (0-3) Basophils % (Manual) 0 % (0-2) Band Neutrophils 0 % (0-8) Platelet Estimate Adequate Platelet Morphology Normal Anisocytosis 1+ Chemistry Test 01/06/19 03:45 Sodium Level 143 MMOL/L (136-145) Potassium Level 3.8 MMOL/L (3.5-5.1) Chloride Level 101 MMOL/L (98-107) Carbon Dioxide Level 40 MMOL/L (21-32) H Anion Gap 1 mmol/L (5-15) L Blood Urea Nitrogen 17 mg/dL (7-18) Creatinine 0.4 MG/DL (0.55-1.30) L Estimat Glomerular Filtration Rate mL/min (>60) Glucose Level 128 MG/DL (74-106) H Calcium Level 7.7 MG/DL (8.5-10.1) L Total Bilirubin 0.5 MG/DL (0.2-1.0) Aspartate Amino Transf (AST/SGOT) 17 U/L (15-37) Alanine Aminotransferase (ALT/SGPT) 20 U/L (12-78) Alkaline Phosphatase 104 U/L (46-116) Total Protein 4.7 G/DL (6.4-8.2) L Albumin 1.9 G/DL (3.4-5.0) L Globulin 2.8 g/dL Albumin/Globulin Ratio 0.7 (1.0-2.7) L Risk Assessment & Plan Assessment: ASA 4 Plan: MAC Status Change Before Surgery: Eliseo Oseguera MD Jan 06, 2019 10:29
--- NOTE | 2019-01-06 10:36 | General Progress Note ---
Assessment/Plan Assessment/Plan: Assessment - Resp failure, s/p trach - dysphagia - COPD - CHF - CAD - GERD - BPH - Anemia - multifactorial Recommendations - pulmonary toilet - NPO - EGD with GT placement today - follow CBC - check Fe panel - replace if low Subjective Allergies: Coded Allergies: DORZOLAMIDE (Unverified Allergy, Unknown, 12/23/18) LISINOPRIL (Unverified Allergy, Unknown, 12/23/18) TIMOLOL (Unverified Allergy, Unknown, 12/23/18) TIOTROPIUM (Unverified Allergy, Unknown, 12/23/18) Subjective above noted no events overnight NPO for PEG placement Objective Last 24 Hour Vital Signs Date Time Temp Pulse Resp B/P (MAP) Pulse Ox O2 Delivery O2 Flow Rate FiO2 01/06/19 10:00 63 13 110/40 (63) 100 01/06/19 09:00 65 11 92/36 (54) 97 01/06/19 08:50 85 12 21 01/06/19 08:00 21 01/06/19 08:00 65 01/06/19 08:00 Mechanical Ventilator 01/06/19 08:00 98.1 80 26 116/46 (69) 95 01/06/19 07:40 76 10 100 Mechanical Ventilator 21 90 11 21 01/06/19 07:00 79 15 107/34 (58) 94 01/06/19 06:00 83 26 103/38 (59) 94 01/06/19 05:30 90 14 21 01/06/19 05:23 98 122/51 01/06/19 05:00 78 13 122/51 (74) 100 01/06/19 04:00 21 01/06/19 04:00 77 01/06/19 04:00 Mechanical Ventilator 01/06/19 04:00 98.2 79 18 102/58 (73) 96 01/06/19 03:30 89 11 100 Mechanical Ventilator 21 90 11 21 01/06/19 03:00 85 17 89/61 (70) 95 01/06/19 02:00 91 24 128/37 (67) 95 01/06/19 01:00 93 18 106/56 (73) 100 01/06/19 00:22 84 14 99 Mechanical Ventilator 21 86 10 21 01/06/19 00:00 21 01/06/19 00:00 Mechanical Ventilator 01/06/19 00:00 98.0 76 8 110/50 (70) 97 01/06/19 00:00 87 01/05/19 23:00 91 15 146/49 (81) 95 01/05/19 22:45 87 127/57 01/05/19 22:00 85 16 112/44 (66) 99 01/05/19 21:32 85 15 21 01/05/19 21:15 88 11 21 01/05/19 21:00 82 16 90/39 (56) 100 01/05/19 20:00 104 01/05/19 20:00 Mechanical Ventilator 01/05/19 20:00 21 01/05/19 20:00 97.8 91 16 112/76 (88) 100 01/05/19 19:30 86 10 100 Mechanical Ventilator 21 86 10 21 01/05/19 19:00 100 21 125/52 (76) 99 01/05/19 18:00 99 22 125/47 (73) 99 01/05/19 17:29 81 13 21 01/05/19 17:00 85 22 117/47 (70) 96 01/05/19 16:08 101 01/05/19 16:00 Mechanical Ventilator 01/05/19 16:00 21 01/05/19 16:00 98.4 76 20 95/47 (63) 100 01/05/19 15:25 78 11 100 Mechanical Ventilator 21 90 10 21 01/05/19 15:00 85 22 114/52 (72) 99 01/05/19 14:09 100 112/59 01/05/19 14:00 100 22 112/59 (76) 98 01/05/19 13:29 95 16 21 01/05/19 13:00 96 21 109/60 (76) 99 01/05/19 12:16 90 01/05/19 12:00 21 01/05/19 12:00 Mechanical Ventilator 01/05/19 12:00 98.0 79 20 96/55 (69) 100 01/05/19 11:29 83 13 100 Mechanical Ventilator 21 90 10 21 01/05/19 11:00 86 21 105/51 (69) 96 Intake and Output 01/05/19 01/06/19 19:00 07:00 Intake Total 1010 ml 410 ml Output Total 570 ml 760 ml Balance 440 ml -350 ml Free Water 300 ml 150 ml Tube Feeding 650 ml 200 ml Other 60 ml 60 ml Output Urine Total 570 ml 760 ml # Bowel Movements 1 1 Laboratory Tests 01/06/19 03:45: White Blood Count 18.5H, Red Blood Count 2.72L, Hemoglobin 8.1L, Hematocrit 25.3L, Mean Corpuscular Volume 93, Mean Corpuscular Hemoglobin 29.9, Mean Corpuscular Hemoglobin Concent 32.1, Red Cell Distribution Width 14.6, Platelet Count 156, Mean Platelet Volume 9.5, Neutrophils (%) (Auto) , Lymphocytes (%) ( Auto) , Monocytes (%) (Auto) , Eosinophils (%) (Auto) , Basophils (%) (Auto) , Differential Total Cells Counted 100, Neutrophils % (Manual) 93H, Lymphocytes % (Manual) 4L, Monocytes % (Manual) 3, Eosinophils % (Manual) 0, Basophils % ( Manual) 0, Band Neutrophils 0, Platelet Estimate Adequate, Platelet Morphology Normal, Anisocytosis 1+, Sodium Level 143, Potassium Level 3.8, Chloride Level 101, Carbon Dioxide Level 40H, Anion Gap 1L, Blood Urea Nitrogen 17, Creatinine 0.4L, Estimat Glomerular Filtration Rate , Glucose Level 128H, Calcium Level 7.7L, Total Bilirubin 0.5, Aspartate Amino Transf (AST/SGOT) 17, Alanine Aminotransferase (ALT/SGPT) 20, Alkaline Phosphatase 104, Total Protein 4.7L, Albumin 1.9L, Globulin 2.8, Albumin/Globulin Ratio 0.7L Height (Feet): 5 Height (Inches): 7.00 Weight (Pounds): 110 Objective Thin AA man NCAT Neck (+) trach Chest: Coarse BS CV: RR abd: Soft no edema Barry Bermeo MD Jan 06, 2019 10:36
--- NOTE | 2019-01-06 10:37 | Pre-Procedure Note/Attestation ---
Pre-Procedure Note/Attestation Complete Prior to Procedure Planned Procedure: not applicable Procedure Narrative: EGD PEG Indications for Procedure Pre-Operative Diagnosis: dysphagia Attestation I attest that I discussed the nature of the procedure; its benefits; risks and complications; and alternatives (and the risks and benefits of such alternatives ), prior to the procedure, with the patient (or the patient's legal group sales representative). I attest that, if there was a reasonable possibility of needing a blood transfusion, the patient (or the patient's legal group sales representative) was given the [facility] standardized written summary, pursuant to the Jaspreet Sher Blood Safety Act ([place] Health and Safety Code # 1645, as amended). I attest that I re-evaluated the patient just prior to the surgery and that there has been no change in the patient's H&P, except as documented below: Barry Bermeo MD Jan 06, 2019 10:37
[2019-01-06] MEDS ORDERED: NS 275ml ONE (10:47)
[2019-01-06] MEDS ORDERED: Tubing IV Secondary IV ONE (10:47)
--- NOTE | 2019-01-06 10:58 | Pulmonology Progress Note ---
Assessment/Plan Assessment/Plan 1. Acute on chronic respiratory failure. 2. 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 3. Cachexia and malnutrition. 4. Atherosclerotic aortic and cardiac disease. 5. History of hypertension, now hypotensive. 6. Urinary tract infection. 7. Diastolic heart failure with edema 8. Glaucoma. 9. Prostate hypertrophy. 10. Anemia. sat 98% on 21% FiO2 placed PEG start feeds per GI disc w GI dc plan Wednesday to Subjective ROS Limited/Unobtainable: Yes Allergies: Coded Allergies: DORZOLAMIDE (Unverified Allergy, Unknown, 12/23/18) LISINOPRIL (Unverified Allergy, Unknown, 12/23/18) TIMOLOL (Unverified Allergy, Unknown, 12/23/18) TIOTROPIUM (Unverified Allergy, Unknown, 12/23/18) Objective Last 24 Hour Vital Signs Date Time Temp Pulse Resp B/P (MAP) Pulse Ox O2 Delivery O2 Flow Rate FiO2 01/06/19 10:31 89 11 Mechanical Ventilator 21 01/06/19 10:00 63 13 110/40 (63) 100 01/06/19 09:00 65 11 92/36 (54) 97 01/06/19 08:50 85 12 21 01/06/19 08:00 21 01/06/19 08:00 65 01/06/19 08:00 Mechanical Ventilator 01/06/19 08:00 98.1 80 26 116/46 (69) 95 01/06/19 07:40 76 10 100 Mechanical Ventilator 21 90 11 21 01/06/19 07:00 79 15 107/34 (58) 94 01/06/19 06:00 83 26 103/38 (59) 94 01/06/19 05:30 90 14 21 01/06/19 05:23 98 122/51 01/06/19 05:00 78 13 122/51 (74) 100 01/06/19 04:00 21 01/06/19 04:00 77 01/06/19 04:00 Mechanical Ventilator 01/06/19 04:00 98.2 79 18 102/58 (73) 96 01/06/19 03:30 89 11 100 Mechanical Ventilator 21 90 11 21 01/06/19 03:00 85 17 89/61 (70) 95 01/06/19 02:00 91 24 128/37 (67) 95 01/06/19 01:00 93 18 106/56 (73) 100 01/06/19 00:22 84 14 99 Mechanical Ventilator 21 86 10 21 01/06/19 00:00 21 01/06/19 00:00 Mechanical Ventilator 01/06/19 00:00 98.0 76 8 110/50 (70) 97 01/06/19 00:00 87 01/05/19 23:00 91 15 146/49 (81) 95 01/05/19 22:45 87 127/57 01/05/19 22:00 85 16 112/44 (66) 99 01/05/19 21:32 85 15 21 01/05/19 21:15 88 11 21 01/05/19 21:00 82 16 90/39 (56) 100 01/05/19 20:00 104 01/05/19 20:00 Mechanical Ventilator 01/05/19 20:00 21 01/05/19 20:00 97.8 91 16 112/76 (88) 100 01/05/19 19:30 86 10 100 Mechanical Ventilator 21 86 10 21 01/05/19 19:00 100 21 125/52 (76) 99 01/05/19 18:00 99 22 125/47 (73) 99 01/05/19 17:29 81 13 21 01/05/19 17:00 85 22 117/47 (70) 96 01/05/19 16:08 101 01/05/19 16:00 Mechanical Ventilator 01/05/19 16:00 21 01/05/19 16:00 98.4 76 20 95/47 (63) 100 01/05/19 15:25 78 11 100 Mechanical Ventilator 21 90 10 21 01/05/19 15:00 85 22 114/52 (72) 99 01/05/19 14:09 100 112/59 01/05/19 14:00 100 22 112/59 (76) 98 01/05/19 13:29 95 16 21 01/05/19 13:00 96 21 109/60 (76) 99 01/05/19 12:16 90 01/05/19 12:00 21 01/05/19 12:00 Mechanical Ventilator 01/05/19 12:00 98.0 79 20 96/55 (69) 100 01/05/19 11:29 83 13 100 Mechanical Ventilator 21 90 10 21 01/05/19 11:00 86 21 105/51 (69) 96 Intake and Output 01/05/19 01/06/19 19:00 07:00 Intake Total 1010 ml 410 ml Output Total 570 ml 760 ml Balance 440 ml -350 ml Free Water 300 ml 150 ml Tube Feeding 650 ml 200 ml Other 60 ml 60 ml Output Urine Total 570 ml 760 ml # Bowel Movements 1 1 Objective trach/vent General Appearance: no acute distress Respiratory/Chest: lungs clear, decreased breath sounds Cardiovascular: normal rate, regular rhythm Microbiology Date/Time Source Procedure Growth Status 01/03/19 16:22 Sputum Expectorated Gram Stain - Final Resulted 01/03/19 16:22 Sputum Culture - Preliminary YEAST Usual Respiratory Jeniffer Resulted Laboratory Tests 01/06/19 03:45: White Blood Count 18.5H, Red Blood Count 2.72L, Hemoglobin 8.1L, Hematocrit 25.3L, Mean Corpuscular Volume 93, Mean Corpuscular Hemoglobin 29.9, Mean Corpuscular Hemoglobin Concent 32.1, Red Cell Distribution Width 14.6, Platelet Count 156, Mean Platelet Volume 9.5, Neutrophils (%) (Auto) , Lymphocytes (%) ( Auto) , Monocytes (%) (Auto) , Eosinophils (%) (Auto) , Basophils (%) (Auto) , Differential Total Cells Counted 100, Neutrophils % (Manual) 93H, Lymphocytes % (Manual) 4L, Monocytes % (Manual) 3, Eosinophils % (Manual) 0, Basophils % ( Manual) 0, Band Neutrophils 0, Platelet Estimate Adequate, Platelet Morphology Normal, Anisocytosis 1+, Sodium Level 143, Potassium Level 3.8, Chloride Level 101, Carbon Dioxide Level 40H, Anion Gap 1L, Blood Urea Nitrogen 17, Creatinine 0.4L, Estimat Glomerular Filtration Rate , Glucose Level 128H, Calcium Level 7.7L, Total Bilirubin 0.5, Aspartate Amino Transf (AST/SGOT) 17, Alanine Aminotransferase (ALT/SGPT) 20, Alkaline Phosphatase 104, Total Protein 4.7L, Albumin 1.9L, Globulin 2.8, Albumin/Globulin Ratio 0.7L Current Medications Medications (Trade) Dose Ordered Sig/Katie Route PRN Reason Start Time Stop Time Status Last Admin Dose Admin Acetaminophen (Tylenol) 650 mg Q6H PRN RECTAL Mild Pain (Pain Scale 1-3) 01/01/19 13:51 01/31/19 13:50 Bisacodyl (Dulcolax) 10 mg DAILYPRN PRN RECTAL Constipation 01/01/19 13:51 01/31/19 13:50 Chlorhexidine Gluconate (Radhika-Hex 2%) 1 applic DAILY@2000 TOPIC 01/01/19 20:00 01/23/19 19:59 01/05/19 20:03 Dextrose (Dextrose 50%) 25 ml Q30M PRN IV Hypoglycemia 01/03/19 23:00 02/02/19 22:59 Dextrose (Dextrose 50%) 50 ml Q30M PRN IV Hypoglycemia 01/03/19 23:00 02/02/19 22:59 01/03/19 23:02 Diltiazem HCl (Cardizem) 60 mg EVERY 8 HOURS GT 01/01/19 22:00 01/31/19 21:59 01/06/19 05:23 Furosemide (Lasix) 20 mg DAILY IV 01/03/19 11:45 02/02/19 11:44 01/06/19 08:09 Heparin Sodium (Porcine) (Heparin 5000 units/ml) 5,000 units EVERY 12 HOURS SUBQ 01/01/19 21:00 01/27/19 20:59 01/05/19 09:28 Insulin Aspart (NovoLOG) EVERY 6 HOURS SUBQ 01/05/19 18:00 02/03/19 06:29 01/05/19 23:49 Levalbuterol HCl (Xopenex) 1.25 mg Q4HRT HHN 01/05/19 11:00 01/10/19 10:59 01/06/19 07:40 Methylprednisolone Sodium Succinate (Solu-MEDROL) 20 mg Q12H IV 01/01/19 18:00 01/22/19 21:59 01/06/19 05:22 Pantoprazole (Protonix) 40 mg DAILY IVP 01/02/19 09:00 01/23/19 08:59 01/06/19 08:08 Sodium Hypochlorite (Dakin's Quarter Strength) 1 applic DAILY TOPIC 01/04/19 09:00 02/03/19 08:59 01/06/19 08:09 Tamsulosin HCl (Flomax) 0.4 mg BEDTIME ORAL 01/01/19 21:00 01/28/19 20:59 01/05/19 20:48 Eliseo Pena MD Jan 06, 2019 10:58
[2019-01-06] MEDS: D5 1/2NS 1,000 ML IV SCH (11:29)
--- NOTE | 2019-01-06 15:33 | Immediate Post-Op Evaluation ---
Immediate Post-Op Evalulation Immediate Post-Op Evalulation Procedure: EGD PEG tube placement Date of Evaluation: Jan 06, 2019 Time of Evaluation: 11:10 IV Fluids: 100 Blood Products: none Estimated Blood Loss: min Urinary Output: none Blood Pressure Systolic: 104 Blood Pressure Diastolic: 56 Pulse Rate: 86 Respiratory Rate: 20 O2 Sat by Pulse Oximetry: 99 Temperature (Fahrenheit): 97.6 Pain Score (1-10): 1 Nausea: No Vomiting: No Complications none Patient Status: reacts, ventilated, none Hydration Status: adequate Eliseo Kerr MD Jan 06, 2019 15:33
--- NOTE | 2019-01-06 17:17 | Surgery Progress Note ---
Surgery Progress Note Subjective Procedure Performed Tracheostomy Additional Comments wbc 18k exam stable on support Objective Last 24 Hour Vital Signs Date Time Temp Pulse Resp B/P (MAP) Pulse Ox O2 Delivery O2 Flow Rate FiO2 01/06/19 17:00 66 11 119/44 (69) 100 01/06/19 16:51 85 12 21 01/06/19 16:00 98.0 64 10 115/38 (63) 100 01/06/19 16:00 21 01/06/19 16:00 67 01/06/19 16:00 Mechanical Ventilator 01/06/19 15:33 86 20 99 01/06/19 15:00 81 18 132/47 (75) 100 01/06/19 14:52 82 10 100 Mechanical Ventilator 21 90 11 21 01/06/19 14:00 62 10 118/52 (74) 100 01/06/19 14:00 73 115/66 01/06/19 13:00 63 10 98/40 (59) 100 01/06/19 12:54 87 13 21 01/06/19 12:00 21 01/06/19 12:00 98.2 68 11 122/50 (74) 100 01/06/19 12:00 Mechanical Ventilator 01/06/19 12:00 65 01/06/19 11:00 60 10 106/19 (48) 100 01/06/19 10:31 89 11 Mechanical Ventilator 21 01/06/19 10:00 63 13 110/40 (63) 100 01/06/19 09:00 65 11 92/36 (54) 97 01/06/19 08:50 85 12 21 01/06/19 08:00 21 01/06/19 08:00 65 01/06/19 08:00 Mechanical Ventilator 01/06/19 08:00 98.1 80 26 116/46 (69) 95 01/06/19 07:40 76 10 100 Mechanical Ventilator 21 90 11 21 01/06/19 07:00 79 15 107/34 (58) 94 01/06/19 06:00 83 26 103/38 (59) 94 01/06/19 05:30 90 14 21 01/06/19 05:23 98 122/51 01/06/19 05:00 78 13 122/51 (74) 100 01/06/19 04:00 21 01/06/19 04:00 77 01/06/19 04:00 Mechanical Ventilator 01/06/19 04:00 98.2 79 18 102/58 (73) 96 01/06/19 03:30 89 11 100 Mechanical Ventilator 21 90 11 21 01/06/19 03:00 85 17 89/61 (70) 95 01/06/19 02:00 91 24 128/37 (67) 95 01/06/19 01:00 93 18 106/56 (73) 100 01/06/19 00:22 84 14 99 Mechanical Ventilator 21 86 10 21 01/06/19 00:00 21 01/06/19 00:00 Mechanical Ventilator 01/06/19 00:00 98.0 76 8 110/50 (70) 97 01/06/19 00:00 87 01/05/19 23:00 91 15 146/49 (81) 95 01/05/19 22:45 87 127/57 01/05/19 22:00 85 16 112/44 (66) 99 01/05/19 21:32 85 15 21 01/05/19 21:15 88 11 21 01/05/19 21:00 82 16 90/39 (56) 100 01/05/19 20:00 104 01/05/19 20:00 Mechanical Ventilator 01/05/19 20:00 21 01/05/19 20:00 97.8 91 16 112/76 (88) 100 01/05/19 19:30 86 10 100 Mechanical Ventilator 21 86 10 21 01/05/19 19:00 100 21 125/52 (76) 99 01/05/19 18:00 99 22 125/47 (73) 99 01/05/19 17:29 81 13 21 I&O Intake and Output 01/05/19 01/06/19 19:00 07:00 Intake Total 1010 ml 410 ml Output Total 570 ml 760 ml Balance 440 ml -350 ml Free Water 300 ml 150 ml Tube Feeding 650 ml 200 ml Other 60 ml 60 ml Output Urine Total 570 ml 760 ml # Bowel Movements 1 1 Dressing: other Wound: other Drains: other Cardiovascular: RSR Respiratory: decreased breath sounds Abdomen: soft, present bowel sounds Extremities: no cyanosis, other Laboratory Tests Test 01/06/19 03:45 White Blood Count 18.5 K/UL (4.8-10.8) H Red Blood Count 2.72 M/UL (4.70-6.10) L Hemoglobin 8.1 G/DL (14.2-18.0) L Hematocrit 25.3 % (42.0-52.0) L Mean Corpuscular Volume 93 FL (80-99) Mean Corpuscular Hemoglobin 29.9 PG (27.0-31.0) Mean Corpuscular Hemoglobin Concent 32.1 G/DL (32.0-36.0) Red Cell Distribution Width 14.6 % (11.6-14.8) Platelet Count 156 K/UL (150-450) Mean Platelet Volume 9.5 FL (6.5-10.1) Neutrophils (%) (Auto) % (45.0-75.0) Lymphocytes (%) (Auto) % (20.0-45.0) Monocytes (%) (Auto) % (1.0-10.0) Eosinophils (%) (Auto) % (0.0-3.0) Basophils (%) (Auto) % (0.0-2.0) Differential Total Cells Counted 100 Neutrophils % (Manual) 93 % (45-75) H Lymphocytes % (Manual) 4 % (20-45) L Monocytes % (Manual) 3 % (1-10) Eosinophils % (Manual) 0 % (0-3) Basophils % (Manual) 0 % (0-2) Band Neutrophils 0 % (0-8) Platelet Estimate Adequate Platelet Morphology Normal Anisocytosis 1+ Sodium Level 143 MMOL/L (136-145) Potassium Level 3.8 MMOL/L (3.5-5.1) Chloride Level 101 MMOL/L (98-107) Carbon Dioxide Level 40 MMOL/L (21-32) H Anion Gap 1 mmol/L (5-15) L Blood Urea Nitrogen 17 mg/dL (7-18) Creatinine 0.4 MG/DL (0.55-1.30) L Estimat Glomerular Filtration Rate mL/min (>60) Glucose Level 128 MG/DL (74-106) H Calcium Level 7.7 MG/DL (8.5-10.1) L Total Bilirubin 0.5 MG/DL (0.2-1.0) Aspartate Amino Transf (AST/SGOT) 17 U/L (15-37) Alanine Aminotransferase (ALT/SGPT) 20 U/L (12-78) Alkaline Phosphatase 104 U/L (46-116) Total Protein 4.7 G/DL (6.4-8.2) L Albumin 1.9 G/DL (3.4-5.0) L Globulin 2.8 g/dL Albumin/Globulin Ratio 0.7 (1.0-2.7) L Plan Problems: (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 CURRENT DIET:NPO PO DIET RECOMMENDATIONS: WHEN SAFE FOR ORAL DIET AND OFF BIPAP -> regular/ texture per GRANTS AND CONTRACTS ASSISTANT ENTERAL NUTRITION RECOMMENDATIONS: CONSULT RD FOR TF REC IF INDICATED AND PART OF POC ADDITIONAL RECOMMENDATIONS: * Per SNF: HT=67", RF=326pzl (as of 12/21) -> rec calibrated bedscale wt, weekly wt monitoring * [employer] AND [employer]S ASSISTANT evaluation prior to oral diet * Ensure Enlive TID w/ meals w/ oral diet * Wound healing: when able for oral meds -> add MVI w/ min x 1, Vit C 500mg BID, ZnSO4 220mg QD x 10 days -> Gaetano 1pkt BID (2) Malnutrition (3) Decubitus skin ulcer Assessment & Plan: Pt presented on admission with multiple pressure injuries. 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 Base of wound has 95% slough. 5% viable. Bone is palpable. Edges macerated. Non- blanching erythema periwound. No odor noted. Hyperpigmentation with surrounding darker skin tone without induration. Full thickness stage 4 sacral pressure injury with undermining . Base of wound has 60% slough, 40% oscar. Bone is palpable. Small amt brown exudate. Mild odor noted. Periwound darker skin tone noted. (L)7cm x (W)7.3cm x (D)2.5cm, undermining clockwise 8 -3 by 3.8cm @9o'clock. Necrotic area noted to R ischium.Periwound is intact.(L)0.4cm x (W)1.3cm. Stable dry eschar medial/lateral R foot (L)2.2cm x (W)1.5cm. periwound is intact. Black area without induration or fluctuance noted to distal/lateral R foot. (L) 1.5cm x (W)1.8cm. Stable dry eschar dorso/flexor R foot 0.4cm x (W)2.5cm. Unstageable pressure injury R heel. Base of wound is 100% necrotic . Periwound is boggy but no erythema noted (L)6.5cm x (W)7cm. Unstageable pressure injury L heel. Base of wound is 100% necrotic(L)1.5cm x (W) 2.5cm with surrounding pink epithelial bordered by hyperpigmentation(L)4cm x (W) 4.4cm. Reducible LIH Tx.Plan: Cleanse Sacral wound with Dakin's 0.125% mike. Loosely pack with Dakin's moistened kerlix. Apply Moisture Barrier Paste periwound. Cover with Optifoam drsg Twice Daily and prn. Cleanse R elbow with Dakin's 0.125% mike. Loosely pack with dakin's moist Kerlix gauze. Apply Moisture Barrier paste periwound.Cover with Optifoam drsg. Twice Daily and prn. Apply Betadine to R and L heels. Cover with Optifoam drsg. Change every 3 days and prn. Apply Betadine to necrotic areas Lateral R foot and dorso /flexor R foot. Cover each wound with Optifoam drsg every 3 days and prn. Apply Moisture Barrier paste to R ischium. Cover with Optifoam drsg. Change every 3 days and prn. Air Fluidized mattress. Reposition at least every 2hours or as tolerated. Off-load heels with pillow. Elevate R and L elbows with pillow. (4) Sepsis Assessment & Plan: leukocytosis tachypnea improved CXR noted labs noted respiratory decline trach needs nutrition LIH reducible cont abx IV fluids feeds and nutritional support will monitor LIH will follow with recs (5) Respiratory failure (6) Left elbow contusion Sher Keene Jan 06, 2019 17:17
--- NOTE | 2019-01-06 20:45 | Operative Note - Dictated ---
DATE OF OPERATION: 01/06/2019 GASTROENTEROLOGY PROCEDURE REPORT PROCEDURE: Upper gastrointestinal endoscopy with biopsy as well as gastrostomy tube placement. SURGEON: Barry Bermeo M.D. ANESTHESIA: Please see the separate anesthesiologist notes for details. PRE-ENDOSCOPIC DIAGNOSIS: Dysphagia. POST-ENDOSCOPIC DIAGNOSIS: Status post gastrostomy tube placement. DESCRIPTION OF PROCEDURE: The procedure, its risks, indications, alternatives, and possible complications were explained to the patient's family and informed consent was obtained. The patient was then sedated in the supine position. A diagnostic upper endoscope was introduced through the oropharynx and advanced to the duodenum. The endoscope was then gradually withdrawn and the mucosa examined carefully. Examination of the upper gastrointestinal mucosa did not reveal any abnormalities. The location for placement of the gastrostomy tube was identified by palpation and transillumination techniques. The outside skin was sterilely prepared, anesthetized, incised, and the trocar needle was placed using the standard pull technique. The patient tolerated the procedure well. RECOMMENDATIONS: 1. Observe overnight. 2. Begin tube feedings tomorrow. 3. Gastrostomy tube care. Barry Bermeo M.D. DR: Osman JOB#: [id number] CC:
[2019-01-06] MEDS: Dyna-Hex 2% Top Sol 2oz TOPIC SCH (20:59)
[2019-01-06] MEDS: Tamsulosin 0.4mg cap ORAL SCH (21:00)
[2019-01-07] VITALS (24 sets, daily range): BP systolic 92–138; BP diastolic 28–56
[2019-01-07] MEDS: NovoLOG Insulin Flexpen SUBQ SCH ×4 (00:10→17:31)
[2019-01-07] MEDS: Levalbuterol Inh UD 1.25mg/0.5ml HHN SCH ×5 (02:41→23:00)
[2019-01-07 05:58] LABS: HEMATOCRIT 26.3 % (42.0-52.0); HEMOGLOBIN 8.4 G/DL (14.2-18.0); MEAN CORPUSCULAR VOLUME 92 FL (80-99); PLATELET COUNT 169 K/UL (150-450); RED BLOOD COUNT 2.85 M/UL (4.70-6.10); RED CELL DISTRIBUTION WIDTH 14.7 % (11.6-14.8); WHITE BLOOD COUNT 14.6 K/UL (4.8-10.8)
[2019-01-07 06:14] LABS: ANION GAP 0 mmol/L (5-15); BLOOD UREA NITROGEN 14 mg/dL (7-18); CALCIUM 7.5 MG/DL (8.5-10.1); CARBON DIOXIDE 40 MMOL/L (21-32); CHLORIDE 101 MMOL/L (98-107); CREATININE 0.4 MG/DL (0.55-1.30); POTASSIUM 3.2 MMOL/L (3.5-5.1); SODIUM 141 MMOL/L (136-145)
[2019-01-07 06:23] LABS: % IRON SATURATION 31 % (15-50); IRON 33 ug/dL (50-175); TOTAL IRON BINDING CAPACITY 107 ug/dL (250-450)
[2019-01-07 06:31] LABS: FERRITIN 1875 NG/ML (8-388)
[2019-01-07] MEDS: dilTIAZem HCl 60mg tab GT SCH ×3 (06:34→22:00)
[2019-01-07] MEDS: Solu-MEDROL 40mg Inj IV SCH ×2 (06:34→17:30)
[2019-01-07] MEDS: D5 1/2NS 1,000 ML IV SCH (07:00)
[2019-01-07] MEDS: Pantoprazole Inj IVP SCH (08:24)
[2019-01-07] MEDS: Heparin 5000 units/ml inj SUBQ SCH ×2 (08:25→21:24)
[2019-01-07] MEDS: Dakin's 0.125% Soln (Quarter Strength) 16oz TOPIC SCH (09:05)
--- NOTE | 2019-01-07 09:32 | Urology Progress Note ---
Assessment/Plan Assessment/Plan: 1. Urinary retention. 2. Benign prostatic hypertrophy. 3. Rule out neurogenic bladder. 4. Scrotal enlargement, probable inguinal hernia versus hydrocele. 5. Hematuria. 6. Pyuria. 7. Proteinuria. maintain kline hand irrigated and do PRN on flomax voiding trial later abx PRN Subjective Allergies: Coded Allergies: DORZOLAMIDE (Unverified Allergy, Unknown, 12/23/18) LISINOPRIL (Unverified Allergy, Unknown, 12/23/18) TIMOLOL (Unverified Allergy, Unknown, 12/23/18) TIOTROPIUM (Unverified Allergy, Unknown, 12/23/18) Subjective all noted, non-verbal, for trach Objective Last 24 Hour Vital Signs Date Time Temp Pulse Resp B/P (MAP) Pulse Ox O2 Delivery O2 Flow Rate FiO2 01/07/19 08:53 57 10 21 01/07/19 08:00 21 01/07/19 08:00 Mechanical Ventilator 01/07/19 07:11 54 10 100 Mechanical Ventilator 21 46 10 21 01/07/19 07:00 54 10 106/42 (63) 100 01/07/19 06:34 60 112/37 01/07/19 06:00 54 12 112/37 (62) 100 01/07/19 05:29 66 10 21 01/07/19 05:00 98.4 56 11 115/42 (66) 100 01/07/19 04:00 60 01/07/19 04:00 Mechanical Ventilator 01/07/19 04:00 62 11 108/40 (62) 100 01/07/19 04:00 21 01/07/19 03:00 63 10 103/37 (59) 100 01/07/19 02:41 65 10 100 Mechanical Ventilator 21 65 10 21 01/07/19 02:00 65 12 107/34 (58) 100 01/07/19 01:00 59 10 95/36 (55) 100 01/07/19 00:47 58 10 21 01/07/19 00:00 Mechanical Ventilator 01/07/19 00:00 98.2 56 10 92/28 (49) 100 01/06/19 23:04 66 10 100 Mechanical Ventilator 21 66 10 21 01/06/19 23:00 58 10 108/38 (61) 95 01/06/19 22:00 66 94/36 01/06/19 22:00 56 10 108/37 (60) 95 01/06/19 21:02 56 10 21 01/06/19 21:00 65 10 94/36 (55) 95 01/06/19 20:00 21 01/06/19 20:00 71 01/06/19 20:00 62 10 104/33 (56) 100 01/06/19 20:00 Mechanical Ventilator 01/06/19 19:00 58 10 111/84 (93) 100 01/06/19 18:45 65 10 100 Mechanical Ventilator 21 65 10 21 01/06/19 18:00 67 12 103/44 (63) 100 01/06/19 17:00 66 11 119/44 (69) 100 01/06/19 16:51 85 12 21 01/06/19 16:00 98.0 64 10 115/38 (63) 100 01/06/19 16:00 21 01/06/19 16:00 67 01/06/19 16:00 Mechanical Ventilator 01/06/19 15:33 86 20 99 01/06/19 15:00 81 18 132/47 (75) 100 01/06/19 14:52 82 10 100 Mechanical Ventilator 21 90 11 21 01/06/19 14:00 62 10 118/52 (74) 100 01/06/19 14:00 73 115/66 01/06/19 13:00 63 10 98/40 (59) 100 01/06/19 12:54 87 13 21 01/06/19 12:00 21 01/06/19 12:00 98.2 68 11 122/50 (74) 100 01/06/19 12:00 Mechanical Ventilator 01/06/19 12:00 65 01/06/19 11:00 60 10 106/19 (48) 100 01/06/19 10:31 89 11 Mechanical Ventilator 21 01/06/19 10:00 63 13 110/40 (63) 100 Intake and Output 01/06/19 01/07/19 19:00 07:00 Intake Total 430 ml 600 ml Output Total 1248 ml 555 ml Balance -818 ml 45 ml IV Total 430 ml 600 ml Output Urine Total 1248 ml 555 ml Microbiology Date/Time Source Procedure Growth Status 12/23/18 13:25 Blood Blood Culture - Final NO GROWTH AFTER 5 DAYS Complete 01/03/19 16:22 Sputum Expectorated Gram Stain - Final Complete 01/03/19 16:22 Sputum Culture - Final Aruna Tropicalis Usual Respiratory Jeniffer Complete 01/03/19 03:30 Indwelling Cath Urine Culture - Final NO GROWTH AFTER 48 HOURS Complete 12/25/18 05:00 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 Complete Current Medications Medications (Trade) Dose Ordered Sig/Katie Route PRN Reason Start Time Stop Time Status Last Admin Dose Admin Acetaminophen (Tylenol) 650 mg Q6H PRN RECTAL Mild Pain (Pain Scale 1-3) 01/01/19 13:51 01/31/19 13:50 Bisacodyl (Dulcolax) 10 mg DAILYPRN PRN RECTAL Constipation 01/01/19 13:51 01/31/19 13:50 Chlorhexidine Gluconate (Radhika-Hex 2%) 1 applic DAILY@2000 TOPIC 01/01/19 20:00 01/23/19 19:59 01/06/19 20:59 Dextrose (Dextrose 50%) 25 ml Q30M PRN IV Hypoglycemia 01/03/19 23:00 02/02/19 22:59 Dextrose (Dextrose 50%) 50 ml Q30M PRN IV Hypoglycemia 01/03/19 23:00 02/02/19 22:59 01/03/19 23:02 Dextrose/Sodium Chloride 1,000 ml @ 50 mls/hr Q20H IV 01/06/19 11:00 01/07/19 11:00 01/06/19 11:29 Diltiazem HCl (Cardizem) 60 mg EVERY 8 HOURS GT 01/01/19 22:00 01/31/19 21:59 01/07/19 06:34 Furosemide (Lasix) 20 mg DAILY IV 01/03/19 11:45 02/02/19 11:44 01/06/19 08:09 Heparin Sodium (Porcine) (Heparin 5000 units/ml) 5,000 units EVERY 12 HOURS SUBQ 01/01/19 21:00 01/27/19 20:59 01/07/19 08:25 Insulin Aspart (NovoLOG) EVERY 6 HOURS SUBQ 01/05/19 18:00 02/03/19 06:29 01/07/19 06:35 Levalbuterol HCl (Xopenex) 1.25 mg Q4HRT HHN 01/05/19 11:00 01/10/19 10:59 01/07/19 07:11 Methylprednisolone Sodium Succinate (Solu-MEDROL) 20 mg Q12H IV 01/01/19 18:00 01/22/19 21:59 01/07/19 06:34 Pantoprazole (Protonix) 40 mg DAILY IVP 01/02/19 09:00 01/23/19 08:59 01/07/19 08:24 Sodium Hypochlorite (Dakin's Quarter Strength) 1 applic DAILY TOPIC 01/04/19 09:00 02/03/19 08:59 01/07/19 09:05 Tamsulosin HCl (Flomax) 0.4 mg BEDTIME ORAL 01/01/19 21:00 01/28/19 20:59 01/06/19 21:00 Laboratory Tests 01/07/19 04:40: White Blood Count 14.6H, Red Blood Count 2.85L, Hemoglobin 8.4L, Hematocrit 26.3L, Mean Corpuscular Volume 92, Mean Corpuscular Hemoglobin 29.3, Mean Corpuscular Hemoglobin Concent 31.8L, Red Cell Distribution Width 14.7, Platelet Count 169, Mean Platelet Volume 9.2, Neutrophils (%) (Auto) , Lymphocytes (%) (Auto) , Monocytes (%) (Auto) , Eosinophils (%) (Auto) , Basophils (%) (Auto) , Differential Total Cells Counted 100, Neutrophils % ( Manual) 94H, Lymphocytes % (Manual) 1L, Monocytes % (Manual) 5, Eosinophils % ( Manual) 0, Basophils % (Manual) 0, Band Neutrophils 0, Platelet Estimate Adequate, Platelet Morphology Normal, Anisocytosis 1+, Sodium Level 141, Potassium Level 3.2L, Chloride Level 101, Carbon Dioxide Level 40H, Anion Gap 0L , Blood Urea Nitrogen 14, Creatinine 0.4L, Estimat Glomerular Filtration Rate , Glucose Level 153H, Calcium Level 7.5L, Iron Level 33L, Total Iron Binding Capacity 107L, Percent Iron Saturation 31, Unsaturated Iron Binding 74L, Ferritin 1875H Height (Feet): 5 Height (Inches): 7.00 Weight (Pounds): 111 Objective exam stable scrotum appears smaller Bubba Felix MD Jan 07, 2019 09:32
[2019-01-07] MEDS ORDERED: D5 1/2NS 1000ml IV ONE (09:38)
--- NOTE | 2019-01-07 14:45 | Surgery Progress Note ---
Surgery Progress Note Subjective Procedure Performed Tracheostomy Additional Comments peg placed comfortable appearing exam stable labs noted trach okay Objective Last 24 Hour Vital Signs Date Time Temp Pulse Resp B/P (MAP) Pulse Ox O2 Delivery O2 Flow Rate FiO2 01/07/19 14:00 55 10 110/43 (65) 100 01/07/19 13:33 55 117/41 01/07/19 13:00 55 10 117/41 (66) 100 01/07/19 12:45 49 10 21 01/07/19 12:00 48 01/07/19 12:00 96.5 53 10 103/40 (61) 100 01/07/19 12:00 21 01/07/19 12:00 Mechanical Ventilator 01/07/19 11:02 47 10 100 Mechanical Ventilator 21 52 10 21 01/07/19 11:00 50 10 99/39 (59) 100 01/07/19 10:00 56 10 101/39 (59) 100 01/07/19 09:00 59 10 109/38 (61) 100 01/07/19 08:53 57 10 21 01/07/19 08:00 56 01/07/19 08:00 21 01/07/19 08:00 97.3 55 10 99/36 (57) 100 01/07/19 08:00 Mechanical Ventilator 01/07/19 07:11 54 10 100 Mechanical Ventilator 21 46 10 21 01/07/19 07:00 54 10 106/42 (63) 100 01/07/19 06:34 60 112/37 01/07/19 06:00 54 12 112/37 (62) 100 01/07/19 05:29 66 10 21 01/07/19 05:00 98.4 56 11 115/42 (66) 100 01/07/19 04:00 60 01/07/19 04:00 Mechanical Ventilator 01/07/19 04:00 62 11 108/40 (62) 100 01/07/19 04:00 21 01/07/19 03:00 63 10 103/37 (59) 100 01/07/19 02:41 65 10 100 Mechanical Ventilator 21 65 10 21 01/07/19 02:00 65 12 107/34 (58) 100 01/07/19 01:00 59 10 95/36 (55) 100 01/07/19 00:47 58 10 21 01/07/19 00:00 Mechanical Ventilator 01/07/19 00:00 98.2 56 10 92/28 (49) 100 01/06/19 23:04 66 10 100 Mechanical Ventilator 21 66 10 21 01/06/19 23:00 58 10 108/38 (61) 95 01/06/19 22:00 66 94/36 01/06/19 22:00 56 10 108/37 (60) 95 01/06/19 21:02 56 10 21 01/06/19 21:00 65 10 94/36 (55) 95 01/06/19 20:00 21 01/06/19 20:00 71 01/06/19 20:00 62 10 104/33 (56) 100 01/06/19 20:00 Mechanical Ventilator 01/06/19 19:00 58 10 111/84 (93) 100 01/06/19 18:45 65 10 100 Mechanical Ventilator 21 65 10 21 01/06/19 18:00 67 12 103/44 (63) 100 01/06/19 17:00 66 11 119/44 (69) 100 01/06/19 16:51 85 12 21 01/06/19 16:00 98.0 64 10 115/38 (63) 100 01/06/19 16:00 21 01/06/19 16:00 67 01/06/19 16:00 Mechanical Ventilator 01/06/19 15:33 86 20 99 01/06/19 15:00 81 18 132/47 (75) 100 01/06/19 14:52 82 10 100 Mechanical Ventilator 21 90 11 21 I&O Intake and Output 01/06/19 01/07/19 19:00 07:00 Intake Total 430 ml 600 ml Output Total 1248 ml 555 ml Balance -818 ml 45 ml IV Total 430 ml 600 ml Output Urine Total 1248 ml 555 ml Dressing: other Wound: other Drains: other Cardiovascular: RSR Respiratory: decreased breath sounds Abdomen: soft, present bowel sounds, non-distended Extremities: no cyanosis, other Laboratory Tests Test 01/07/19 04:40 01/07/19 09:35 White Blood Count 14.6 K/UL (4.8-10.8) H Red Blood Count 2.85 M/UL (4.70-6.10) L Hemoglobin 8.4 G/DL (14.2-18.0) L Hematocrit 26.3 % (42.0-52.0) L Mean Corpuscular Volume 92 FL (80-99) Mean Corpuscular Hemoglobin 29.3 PG (27.0-31.0) Mean Corpuscular Hemoglobin Concent 31.8 G/DL (32.0-36.0) L Red Cell Distribution Width 14.7 % (11.6-14.8) Platelet Count 169 K/UL (150-450) Mean Platelet Volume 9.2 FL (6.5-10.1) Neutrophils (%) (Auto) % (45.0-75.0) Lymphocytes (%) (Auto) % (20.0-45.0) Monocytes (%) (Auto) % (1.0-10.0) Eosinophils (%) (Auto) % (0.0-3.0) Basophils (%) (Auto) % (0.0-2.0) Differential Total Cells Counted 100 Neutrophils % (Manual) 94 % (45-75) H Lymphocytes % (Manual) 1 % (20-45) L Monocytes % (Manual) 5 % (1-10) Eosinophils % (Manual) 0 % (0-3) Basophils % (Manual) 0 % (0-2) Band Neutrophils 0 % (0-8) Platelet Estimate Adequate Platelet Morphology Normal Anisocytosis 1+ Sodium Level 141 MMOL/L (136-145) Potassium Level 3.2 MMOL/L (3.5-5.1) L Chloride Level 101 MMOL/L (98-107) Carbon Dioxide Level 40 MMOL/L (21-32) H Anion Gap 0 mmol/L (5-15) L Blood Urea Nitrogen 14 mg/dL (7-18) Creatinine 0.4 MG/DL (0.55-1.30) L Estimat Glomerular Filtration Rate mL/min (>60) Glucose Level 153 MG/DL (74-106) H Calcium Level 7.5 MG/DL (8.5-10.1) L Iron Level 33 ug/dL (50-175) L Total Iron Binding Capacity 107 ug/dL (250-450) L Percent Iron Saturation 31 % (15-50) Unsaturated Iron Binding 74 ug/dL (112-346) L Ferritin 1875 NG/ML (8-388) H Arterial Blood pH 7.518 (7.350-7.450) Arterial Blood Partial Pressure CO2 47.3 mmHg (35.0-45.0) H Arterial Blood Partial Pressure O2 65.9 mmHg (75.0-100.0) L Arterial Blood HCO3 37.6 mmol/L (22.0-26.0) H Arterial Blood Oxygen Saturation 93.0 % (95-100) L Arterial Blood Base Excess 13.3 (-2-2) *H Samuel Test Positive Plan Problems: (1) Failure to thrive in adult Assessment & Plan: DAILY ESTIMATED NEEDS: Needs based on Wound healing, Pulmonary, Underweight/ 49.5kg 30-40 kcals/kg 2592-3348 total kcals 1.25-1.8 g protein/kg 62-89 g total protein 25-30 mL/kg 3782-2431 total fluid mLs NUTRITION DIAGNOSIS: Increased kcal/prot needs R/T underweight status, wound healing, severe COPD per MD as evidenced by pt is 73% IBW w/ BMI of 17.0, admitted w/ advanced sacral and rt elbow wounds, unstageable BL heel wounds, pending eval, currently on BIPAP, NPO. CURRENT DIET:NPO PO DIET RECOMMENDATIONS: WHEN SAFE FOR ORAL DIET AND OFF BIPAP -> regular/ texture per ADULT LIVE IN CAREGIVER ENTERAL NUTRITION RECOMMENDATIONS: CONSULT RD FOR TF REC IF INDICATED AND PART OF POC ADDITIONAL RECOMMENDATIONS: * Per SNF: HT=67", MQ=448hay (as of 12/21) -> rec calibrated bedscale wt, weekly wt monitoring * ADULT LIVE IN CAREGIVER evaluation prior to oral diet * Ensure Enlive TID w/ meals w/ oral diet * Wound healing: when able for oral meds -> add MVI w/ min x 1, Vit C 500mg BID, ZnSO4 220mg QD x 10 days -> Gaetano 1pkt BID (2) Malnutrition (3) Decubitus skin ulcer Assessment & Plan: Pt presented on admission with multiple pressure injuries. 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 Base of wound has 95% slough. 5% viable. Bone is palpable. Edges macerated. Non- blanching erythema periwound. No odor noted. Hyperpigmentation with surrounding darker skin tone without induration. Full thickness stage 4 sacral pressure injury with undermining . Base of wound has 60% slough, 40% oscar. Bone is palpable. Small amt brown exudate. Mild odor noted. Periwound darker skin tone noted. (L)7cm x (W)7.3cm x (D)2.5cm, undermining clockwise 8 -3 by 3.8cm @9o'clock. Necrotic area noted to R ischium.Periwound is intact.(L)0.4cm x (W)1.3cm. Stable dry eschar medial/lateral R foot (L)2.2cm x (W)1.5cm. periwound is intact. Black area without induration or fluctuance noted to distal/lateral R foot. (L) 1.5cm x (W)1.8cm. Stable dry eschar dorso/flexor R foot 0.4cm x (W)2.5cm. Unstageable pressure injury R heel. Base of wound is 100% necrotic . Periwound is boggy but no erythema noted (L)6.5cm x (W)7cm. Unstageable pressure injury L heel. Base of wound is 100% necrotic(L)1.5cm x (W) 2.5cm with surrounding pink epithelial bordered by hyperpigmentation(L)4cm x (W) 4.4cm. Reducible LIH Tx.Plan: Cleanse Sacral wound with Dakin's 0.125% mike. Loosely pack with Dakin's moistened kerlix. Apply Moisture Barrier Paste periwound. Cover with Optifoam drsg Twice Daily and prn. Cleanse R elbow with Dakin's 0.125% mike. Loosely pack with dakin's moist Kerlix gauze. Apply Moisture Barrier paste periwound.Cover with Optifoam drsg. Twice Daily and prn. Apply Betadine to R and L heels. Cover with Optifoam drsg. Change every 3 days and prn. Apply Betadine to necrotic areas Lateral R foot and dorso /flexor R foot. Cover each wound with Optifoam drsg every 3 days and prn. Apply Moisture Barrier paste to R ischium. Cover with Optifoam drsg. Change every 3 days and prn. Air Fluidized mattress. Reposition at least every 2hours or as tolerated. Off-load heels with pillow. Elevate R and L elbows with pillow. (4) Sepsis Assessment & Plan: leukocytosis tachypnea improved CXR noted labs noted respiratory decline trach needs nutrition LIH reducible cont abx IV fluids feeds and nutritional support will monitor LIH will follow with recs (5) Respiratory failure (6) Left elbow contusion Sher Keene Jan 07, 2019 14:45
--- NOTE | 2019-01-07 17:16 | General Progress Note ---
Assessment/Plan Assessment/Plan: Assessment - Resp failure, s/p trach - dysphagia, s/p PEG - COPD - CHF - CAD - GERD - BPH - Anemia - multifactorial Recommendations - pulmonary toilet - Begin TF - follow CBC - elevate HOB Subjective Allergies: Coded Allergies: DORZOLAMIDE (Unverified Allergy, Unknown, 12/23/18) LISINOPRIL (Unverified Allergy, Unknown, 12/23/18) TIMOLOL (Unverified Allergy, Unknown, 12/23/18) TIOTROPIUM (Unverified Allergy, Unknown, 12/23/18) Subjective above noted no events overnight s/p PEG placement Objective Last 24 Hour Vital Signs Date Time Temp Pulse Resp B/P (MAP) Pulse Ox O2 Delivery O2 Flow Rate FiO2 01/07/19 17:00 65 13 119/50 (73) 100 01/07/19 16:59 68 12 21 01/07/19 16:00 Mechanical Ventilator 01/07/19 16:00 97.8 58 11 114/37 (62) 100 01/07/19 16:00 21 01/07/19 15:52 64 10 100 Mechanical Ventilator 21 01/07/19 15:00 80 21 138/56 (83) 100 01/07/19 14:50 57 16 100 Mechanical Ventilator 21 56 17 21 01/07/19 14:00 55 10 110/43 (65) 100 01/07/19 13:33 55 117/41 01/07/19 13:00 55 10 117/41 (66) 100 01/07/19 12:45 49 10 21 01/07/19 12:00 48 01/07/19 12:00 96.5 53 10 103/40 (61) 100 01/07/19 12:00 21 01/07/19 12:00 Mechanical Ventilator 01/07/19 11:02 47 10 100 Mechanical Ventilator 21 52 10 21 01/07/19 11:00 50 10 99/39 (59) 100 01/07/19 10:00 56 10 101/39 (59) 100 01/07/19 09:00 59 10 109/38 (61) 100 01/07/19 08:53 57 10 21 01/07/19 08:00 56 01/07/19 08:00 21 01/07/19 08:00 97.3 55 10 99/36 (57) 100 01/07/19 08:00 Mechanical Ventilator 01/07/19 07:11 54 10 100 Mechanical Ventilator 21 46 10 21 01/07/19 07:00 54 10 106/42 (63) 100 01/07/19 06:34 60 112/37 01/07/19 06:00 54 12 112/37 (62) 100 01/07/19 05:29 66 10 21 01/07/19 05:00 98.4 56 11 115/42 (66) 100 01/07/19 04:00 60 01/07/19 04:00 Mechanical Ventilator 01/07/19 04:00 62 11 108/40 (62) 100 01/07/19 04:00 21 01/07/19 03:00 63 10 103/37 (59) 100 01/07/19 02:41 65 10 100 Mechanical Ventilator 21 65 10 21 01/07/19 02:00 65 12 107/34 (58) 100 01/07/19 01:00 59 10 95/36 (55) 100 01/07/19 00:47 58 10 21 01/07/19 00:00 Mechanical Ventilator 01/07/19 00:00 98.2 56 10 92/28 (49) 100 01/06/19 23:04 66 10 100 Mechanical Ventilator 21 66 10 21 01/06/19 23:00 58 10 108/38 (61) 95 01/06/19 22:00 66 94/36 01/06/19 22:00 56 10 108/37 (60) 95 01/06/19 21:02 56 10 21 01/06/19 21:00 65 10 94/36 (55) 95 01/06/19 20:00 21 01/06/19 20:00 71 01/06/19 20:00 62 10 104/33 (56) 100 01/06/19 20:00 Mechanical Ventilator 01/06/19 19:00 58 10 111/84 (93) 100 01/06/19 18:45 65 10 100 Mechanical Ventilator 21 65 10 21 01/06/19 18:00 67 12 103/44 (63) 100 Intake and Output 01/06/19 01/07/19 19:00 07:00 Intake Total 430 ml 600 ml Output Total 1248 ml 555 ml Balance -818 ml 45 ml IV Total 430 ml 600 ml Output Urine Total 1248 ml 555 ml Laboratory Tests 01/07/19 04:40: White Blood Count 14.6H, Red Blood Count 2.85L, Hemoglobin 8.4L, Hematocrit 26.3L, Mean Corpuscular Volume 92, Mean Corpuscular Hemoglobin 29.3, Mean Corpuscular Hemoglobin Concent 31.8L, Red Cell Distribution Width 14.7, Platelet Count 169, Mean Platelet Volume 9.2, Neutrophils (%) (Auto) , Lymphocytes (%) (Auto) , Monocytes (%) (Auto) , Eosinophils (%) (Auto) , Basophils (%) (Auto) , Differential Total Cells Counted 100, Neutrophils % ( Manual) 94H, Lymphocytes % (Manual) 1L, Monocytes % (Manual) 5, Eosinophils % ( Manual) 0, Basophils % (Manual) 0, Band Neutrophils 0, Platelet Estimate Adequate, Platelet Morphology Normal, Anisocytosis 1+, Sodium Level 141, Potassium Level 3.2L, Chloride Level 101, Carbon Dioxide Level 40H, Anion Gap 0L , Blood Urea Nitrogen 14, Creatinine 0.4L, Estimat Glomerular Filtration Rate , Glucose Level 153H, Calcium Level 7.5L, Iron Level 33L, Total Iron Binding Capacity 107L, Percent Iron Saturation 31, Unsaturated Iron Binding 74L, Ferritin 1875H 01/07/19 09:35: Arterial Blood pH 7.518H, Arterial Blood Partial Pressure CO2 47.3H, Arterial Blood Partial Pressure O2 65.9L, Arterial Blood HCO3 37.6H, Arterial Blood Oxygen Saturation 93.0L, Arterial Blood Base Excess 13.3*H, Samuel Test Positive Height (Feet): 5 Height (Inches): 7.00 Weight (Pounds): 111 Objective Thin AA man NCAT Neck (+) trach Chest: Coarse BS CV: RR abd: Soft, (+) PEG no edema Barry Bermeo MD Jan 07, 2019 17:16
--- NOTE | 2019-01-07 19:42 | Pulmonolgy Critical Care Note ---
Critical Care - Asmt/Plan Assessment/Plan: 1. Acute on chronic respiratory failure. 2. 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 3. Cachexia and malnutrition. 4. Atherosclerotic aortic and cardiac disease. 5. History of hypertension, now hypotensive. 6. Urinary tract infection. 7. Diastolic heart failure with edema 8. Glaucoma. 9. Prostate hypertrophy. 10. Anemia. weaning as toelrated nebs adn suction wound care monitor uop abx start feeds per GI disc w GI dc plan Wednesday to Respiratory: CXR, ABG, weaning trial Cardiac: continue to monitor HR/BP Infectious Disease: continue antibiotics Prophylaxis: Protonix Disposition: keep in ICU Time Spent (Minutes): 50 Critical Care - Objective Last 24 Hour Vital Signs Date Time Temp Pulse Resp B/P (MAP) Pulse Ox O2 Delivery O2 Flow Rate FiO2 01/07/19 19:00 69 10 119/53 (75) 100 01/07/19 18:47 63 12 100 Mechanical Ventilator 21 68 10 21 21 01/07/19 18:00 63 9 116/47 (70) 100 01/07/19 17:00 65 13 119/50 (73) 100 01/07/19 16:59 68 12 21 01/07/19 16:00 61 01/07/19 16:00 Mechanical Ventilator 01/07/19 16:00 97.8 58 11 114/37 (62) 100 01/07/19 16:00 21 01/07/19 15:52 64 10 100 Mechanical Ventilator 21 01/07/19 15:00 80 21 138/56 (83) 100 01/07/19 14:50 57 16 100 Mechanical Ventilator 21 56 17 21 01/07/19 14:00 55 10 110/43 (65) 100 01/07/19 13:33 55 117/41 01/07/19 13:00 55 10 117/41 (66) 100 01/07/19 12:45 49 10 21 01/07/19 12:00 48 01/07/19 12:00 96.5 53 10 103/40 (61) 100 01/07/19 12:00 21 01/07/19 12:00 Mechanical Ventilator 01/07/19 11:02 47 10 100 Mechanical Ventilator 21 52 10 21 01/07/19 11:00 50 10 99/39 (59) 100 01/07/19 10:00 56 10 101/39 (59) 100 01/07/19 09:00 59 10 109/38 (61) 100 01/07/19 08:53 57 10 21 01/07/19 08:00 56 01/07/19 08:00 21 01/07/19 08:00 97.3 55 10 99/36 (57) 100 01/07/19 08:00 Mechanical Ventilator 01/07/19 07:11 54 10 100 Mechanical Ventilator 21 46 10 21 01/07/19 07:00 54 10 106/42 (63) 100 01/07/19 06:34 60 112/37 01/07/19 06:00 54 12 112/37 (62) 100 01/07/19 05:29 66 10 21 01/07/19 05:00 98.4 56 11 115/42 (66) 100 01/07/19 04:00 60 01/07/19 04:00 Mechanical Ventilator 01/07/19 04:00 62 11 108/40 (62) 100 01/07/19 04:00 21 01/07/19 03:00 63 10 103/37 (59) 100 01/07/19 02:41 65 10 100 Mechanical Ventilator 21 65 10 21 01/07/19 02:00 65 12 107/34 (58) 100 01/07/19 01:00 59 10 95/36 (55) 100 01/07/19 00:47 58 10 21 01/07/19 00:00 Mechanical Ventilator 01/07/19 00:00 98.2 56 10 92/28 (49) 100 01/06/19 23:04 66 10 100 Mechanical Ventilator 21 66 10 21 01/06/19 23:00 58 10 108/38 (61) 95 01/06/19 22:00 66 94/36 01/06/19 22:00 56 10 108/37 (60) 95 01/06/19 21:02 56 10 21 01/06/19 21:00 65 10 94/36 (55) 95 01/06/19 20:00 21 01/06/19 20:00 71 01/06/19 20:00 62 10 104/33 (56) 100 01/06/19 20:00 Mechanical Ventilator Status: awake Neck: trach Lungs: rhonchi Heart: HR/BP stable Abdomen: soft, non-tender Extremities: edema Accucheck: 152 Critical Care - Subjective ROS Limited/Unobtainable: Yes Condition: improving FI02: 21 Vent Support Breath Rate: 10 Vent Support Mode: AC Vent Tidal Volume: 500 Sputum Amount: Small PEEP: 0.0 PIP: 15 Tube Feeding Amount: 25 I&O: Intake and Output 01/06/19 01/07/19 19:00 07:00 Intake Total 430 ml 600 ml Output Total 1248 ml 555 ml Balance -818 ml 45 ml IV Total 430 ml 600 ml Output Urine Total 1248 ml 555 ml Subjective: emains on the vent sp trach adn peg awak on ivf no cp nv or bleeding positive uop CXR: reviewed 01/05 Labs: Current Medications Medications (Trade) Dose Ordered Sig/Katie Route PRN Reason Start Time Stop Time Status Last Admin Dose Admin Acetaminophen (Tylenol) 650 mg Q6H PRN RECTAL Mild Pain (Pain Scale 1-3) 01/01/19 13:51 01/31/19 13:50 Bisacodyl (Dulcolax) 10 mg DAILYPRN PRN RECTAL Constipation 01/01/19 13:51 01/31/19 13:50 Chlorhexidine Gluconate (Radhika-Hex 2%) 1 applic DAILY@2000 TOPIC 01/01/19 20:00 01/23/19 19:59 01/06/19 20:59 Dextrose (Dextrose 50%) 25 ml Q30M PRN IV Hypoglycemia 01/03/19 23:00 02/02/19 22:59 Dextrose (Dextrose 50%) 50 ml Q30M PRN IV Hypoglycemia 01/03/19 23:00 02/02/19 22:59 01/03/19 23:02 Diltiazem HCl (Cardizem) 60 mg EVERY 8 HOURS GT 01/01/19 22:00 01/31/19 21:59 01/07/19 06:34 Furosemide (Lasix) 20 mg DAILY IV 01/03/19 11:45 02/02/19 11:44 01/06/19 08:09 Heparin Sodium (Porcine) (Heparin 5000 units/ml) 5,000 units EVERY 12 HOURS SUBQ 01/01/19 21:00 01/27/19 20:59 01/07/19 08:25 Insulin Aspart (NovoLOG) EVERY 6 HOURS SUBQ 01/05/19 18:00 02/03/19 06:29 01/07/19 17:31 Levalbuterol HCl (Xopenex) 1.25 mg Q4HRT HHN 01/05/19 11:00 01/10/19 10:59 01/07/19 18:49 Methylprednisolone Sodium Succinate (Solu-MEDROL) 20 mg Q12H IV 01/01/19 18:00 01/22/19 21:59 01/07/19 17:30 Pantoprazole (Protonix) 40 mg DAILY IVP 01/02/19 09:00 01/23/19 08:59 01/07/19 08:24 Sodium Hypochlorite (Dakin's Quarter Strength) 1 applic DAILY TOPIC 01/04/19 09:00 02/03/19 08:59 01/07/19 09:05 Tamsulosin HCl (Flomax) 0.4 mg BEDTIME ORAL 01/01/19 21:00 01/28/19 20:59 01/06/19 21:00 Laboratory Tests Test 01/07/19 04:40 01/07/19 09:35 White Blood Count 14.6 K/UL (4.8-10.8) H Red Blood Count 2.85 M/UL (4.70-6.10) L Hemoglobin 8.4 G/DL (14.2-18.0) L Hematocrit 26.3 % (42.0-52.0) L Mean Corpuscular Volume 92 FL (80-99) Mean Corpuscular Hemoglobin 29.3 PG (27.0-31.0) Mean Corpuscular Hemoglobin Concent 31.8 G/DL (32.0-36.0) L Red Cell Distribution Width 14.7 % (11.6-14.8) Platelet Count 169 K/UL (150-450) Mean Platelet Volume 9.2 FL (6.5-10.1) Neutrophils (%) (Auto) % (45.0-75.0) Lymphocytes (%) (Auto) % (20.0-45.0) Monocytes (%) (Auto) % (1.0-10.0) Eosinophils (%) (Auto) % (0.0-3.0) Basophils (%) (Auto) % (0.0-2.0) Differential Total Cells Counted 100 Neutrophils % (Manual) 94 % (45-75) H Lymphocytes % (Manual) 1 % (20-45) L Monocytes % (Manual) 5 % (1-10) Eosinophils % (Manual) 0 % (0-3) Basophils % (Manual) 0 % (0-2) Band Neutrophils 0 % (0-8) Platelet Estimate Adequate Platelet Morphology Normal Anisocytosis 1+ Sodium Level 141 MMOL/L (136-145) Potassium Level 3.2 MMOL/L (3.5-5.1) L Chloride Level 101 MMOL/L (98-107) Carbon Dioxide Level 40 MMOL/L (21-32) H Anion Gap 0 mmol/L (5-15) L Blood Urea Nitrogen 14 mg/dL (7-18) Creatinine 0.4 MG/DL (0.55-1.30) L Estimat Glomerular Filtration Rate mL/min (>60) Glucose Level 153 MG/DL (74-106) H Calcium Level 7.5 MG/DL (8.5-10.1) L Iron Level 33 ug/dL (50-175) L Total Iron Binding Capacity 107 ug/dL (250-450) L Percent Iron Saturation 31 % (15-50) Unsaturated Iron Binding 74 ug/dL (112-346) L Ferritin 1875 NG/ML (8-388) H Arterial Blood pH 7.518 (7.350-7.450) Arterial Blood Partial Pressure CO2 47.3 mmHg (35.0-45.0) H Arterial Blood Partial Pressure O2 65.9 mmHg (75.0-100.0) L Arterial Blood HCO3 37.6 mmol/L (22.0-26.0) H Arterial Blood Oxygen Saturation 93.0 % (95-100) L Arterial Blood Base Excess 13.3 (-2-2) *H Samuel Test Positive Emma Ramesh DO Jan 07, 2019 19:42
[2019-01-07] MEDS: Dyna-Hex 2% Top Sol 2oz TOPIC SCH (21:23)
[2019-01-07] MEDS: Tamsulosin 0.4mg cap ORAL SCH (21:23)
[2019-01-08] VITALS (18 sets, daily range): BP systolic 93–143; BP diastolic 38–64
[2019-01-08] MEDS: NovoLOG Insulin Flexpen SUBQ SCH ×4 (00:52→17:56)
[2019-01-08] MEDS: Levalbuterol Inh UD 1.25mg/0.5ml HHN SCH ×6 (03:15→23:41)
[2019-01-08] MEDS: dilTIAZem HCl 60mg tab GT SCH ×3 (06:00→21:52)
[2019-01-08] MEDS: Solu-MEDROL 40mg Inj IV SCH ×2 (06:55→17:52)
[2019-01-08] MEDS: Heparin 5000 units/ml inj SUBQ SCH ×2 (09:00→20:20)
[2019-01-08] MEDS: Pantoprazole Inj IVP SCH (09:03)
[2019-01-08] MEDS: Dakin's 0.125% Soln (Quarter Strength) 16oz TOPIC SCH (09:05)
--- NOTE | 2019-01-08 09:19 | General Progress Note ---
Assessment/Plan Assessment/Plan: Assessment - Resp failure, s/p trach - dysphagia, s/p PEG - COPD - CHF - CAD - GERD - BPH - Anemia - multifactorial Recommendations - pulmonary toilet - Continue TF - follow CBC - elevate HOB Subjective Allergies: Coded Allergies: DORZOLAMIDE (Unverified Allergy, Unknown, 12/23/18) LISINOPRIL (Unverified Allergy, Unknown, 12/23/18) TIMOLOL (Unverified Allergy, Unknown, 12/23/18) TIOTROPIUM (Unverified Allergy, Unknown, 12/23/18) Subjective above noted no events overnight s/p PEG placement started on TF Objective Last 24 Hour Vital Signs Date Time Temp Pulse Resp B/P (MAP) Pulse Ox O2 Delivery O2 Flow Rate FiO2 01/08/19 07:20 63 13 100 Mechanical Ventilator 21 63 13 21 21 01/08/19 07:00 98.8 67 13 108/42 (64) 100 01/08/19 06:00 59 116/48 01/08/19 06:00 67 13 116/48 (70) 100 01/08/19 05:00 61 0 104/64 (77) 100 01/08/19 04:43 62 11 21 21 01/08/19 04:00 65 01/08/19 04:00 Mechanical Ventilator 01/08/19 04:00 21 01/08/19 04:00 74 15 107/47 (67) 100 01/08/19 03:12 66 12 100 Mechanical Ventilator 21 64 10 21 21 01/08/19 03:00 61 0 104/64 (77) 100 01/08/19 02:00 70 10 98/42 (60) 100 01/08/19 01:22 63 11 21 21 01/08/19 01:00 71 10 115/45 (68) 100 01/08/19 00:00 Mechanical Ventilator 01/08/19 00:00 97.9 64 11 118/55 (76) 100 01/07/19 23:00 69 11 128/54 (78) 100 01/07/19 22:42 67 12 100 Mechanical Ventilator 21 62 10 21 21 01/07/19 22:00 64 11 117/47 (70) 100 01/07/19 22:00 56 117/47 01/07/19 21:00 66 12 126/46 (72) 100 01/07/19 20:58 62 11 21 21 01/07/19 20:00 66 10 113/47 (69) 100 01/07/19 20:00 Mechanical Ventilator 01/07/19 20:00 63 01/07/19 20:00 21 01/07/19 19:00 69 10 119/53 (75) 100 01/07/19 18:47 63 12 100 Mechanical Ventilator 21 68 10 21 21 01/07/19 18:00 63 9 116/47 (70) 100 01/07/19 17:00 65 13 119/50 (73) 100 01/07/19 16:59 68 12 21 01/07/19 16:00 61 01/07/19 16:00 Mechanical Ventilator 01/07/19 16:00 97.8 58 11 114/37 (62) 100 01/07/19 16:00 21 01/07/19 15:52 64 10 100 Mechanical Ventilator 21 01/07/19 15:00 80 21 138/56 (83) 100 01/07/19 14:50 57 16 100 Mechanical Ventilator 21 56 17 21 01/07/19 14:00 55 10 110/43 (65) 100 01/07/19 13:33 55 117/41 01/07/19 13:00 55 10 117/41 (66) 100 01/07/19 12:45 49 10 21 01/07/19 12:00 48 01/07/19 12:00 96.5 53 10 103/40 (61) 100 01/07/19 12:00 21 01/07/19 12:00 Mechanical Ventilator 01/07/19 11:02 47 10 100 Mechanical Ventilator 21 52 10 21 01/07/19 11:00 50 10 99/39 (59) 100 01/07/19 10:00 56 10 101/39 (59) 100 Intake and Output 01/07/19 01/08/19 19:00 07:00 Intake Total 265 ml 350 ml Output Total 280 ml 140 ml Balance -15 ml 210 ml Free Water 100 ml Tube Feeding 165 ml 350 ml Output Urine Total 280 ml 140 ml Laboratory Tests 01/07/19 09:35: Arterial Blood pH 7.518H, Arterial Blood Partial Pressure CO2 47.3H, Arterial Blood Partial Pressure O2 65.9L, Arterial Blood HCO3 37.6H, Arterial Blood Oxygen Saturation 93.0L, Arterial Blood Base Excess 13.3*H, Samuel Test Positive Height (Feet): 5 Height (Inches): 7.00 Weight (Pounds): 115 Objective Thin AA man NCAT Neck (+) trach Chest: Coarse BS CV: RR abd: Soft, (+) PEG no edema Barry Bermeo MD Jan 08, 2019 09:19
--- NOTE | 2019-01-08 11:15 | Urology Progress Note ---
Assessment/Plan Assessment/Plan: 1. Urinary retention. 2. Benign prostatic hypertrophy. 3. Rule out neurogenic bladder. 4. Scrotal enlargement, probable inguinal hernia versus hydrocele. 5. Hematuria. 6. Pyuria. 7. Proteinuria. maintain kline hand irrigated and do PRN on flomax voiding trial later abx PRN Subjective Allergies: Coded Allergies: DORZOLAMIDE (Unverified Allergy, Unknown, 12/23/18) LISINOPRIL (Unverified Allergy, Unknown, 12/23/18) TIMOLOL (Unverified Allergy, Unknown, 12/23/18) TIOTROPIUM (Unverified Allergy, Unknown, 12/23/18) Subjective all noted, non-verbal, for trach Objective Last 24 Hour Vital Signs Date Time Temp Pulse Resp B/P (MAP) Pulse Ox O2 Delivery O2 Flow Rate FiO2 01/08/19 11:11 87 12 100 Mechanical Ventilator 21 86 15 21 01/08/19 09:41 89 15 21 01/08/19 09:00 85 15 109/40 (63) 100 01/08/19 08:00 21 01/08/19 08:00 78 17 93/38 (56) 100 01/08/19 07:20 63 13 100 Mechanical Ventilator 21 63 13 21 21 01/08/19 07:00 98.8 67 13 108/42 (64) 100 01/08/19 06:00 59 116/48 01/08/19 06:00 67 13 116/48 (70) 100 01/08/19 05:00 61 0 104/64 (77) 100 01/08/19 04:43 62 11 21 21 01/08/19 04:00 65 01/08/19 04:00 Mechanical Ventilator 01/08/19 04:00 21 01/08/19 04:00 74 15 107/47 (67) 100 01/08/19 03:12 66 12 100 Mechanical Ventilator 21 64 10 21 21 01/08/19 03:00 61 0 104/64 (77) 100 01/08/19 02:00 70 10 98/42 (60) 100 01/08/19 01:22 63 11 21 21 01/08/19 01:00 71 10 115/45 (68) 100 01/08/19 00:00 Mechanical Ventilator 01/08/19 00:00 97.9 64 11 118/55 (76) 100 01/07/19 23:00 69 11 128/54 (78) 100 01/07/19 22:42 67 12 100 Mechanical Ventilator 21 62 10 21 21 01/07/19 22:00 64 11 117/47 (70) 100 01/07/19 22:00 56 117/47 01/07/19 21:00 66 12 126/46 (72) 100 01/07/19 20:58 62 11 21 21 01/07/19 20:00 66 10 113/47 (69) 100 01/07/19 20:00 Mechanical Ventilator 01/07/19 20:00 63 01/07/19 20:00 21 01/07/19 19:00 69 10 119/53 (75) 100 01/07/19 18:47 63 12 100 Mechanical Ventilator 21 68 10 21 21 01/07/19 18:00 63 9 116/47 (70) 100 01/07/19 17:00 65 13 119/50 (73) 100 01/07/19 16:59 68 12 21 01/07/19 16:00 61 01/07/19 16:00 Mechanical Ventilator 01/07/19 16:00 97.8 58 11 114/37 (62) 100 01/07/19 16:00 21 01/07/19 15:52 64 10 100 Mechanical Ventilator 21 01/07/19 15:00 80 21 138/56 (83) 100 01/07/19 14:50 57 16 100 Mechanical Ventilator 21 56 17 21 01/07/19 14:00 55 10 110/43 (65) 100 01/07/19 13:33 55 117/41 01/07/19 13:00 55 10 117/41 (66) 100 01/07/19 12:45 49 10 21 01/07/19 12:00 48 01/07/19 12:00 96.5 53 10 103/40 (61) 100 01/07/19 12:00 21 01/07/19 12:00 Mechanical Ventilator Intake and Output 01/07/19 01/08/19 19:00 07:00 Intake Total 265 ml 350 ml Output Total 280 ml 140 ml Balance -15 ml 210 ml Free Water 100 ml Tube Feeding 165 ml 350 ml Output Urine Total 280 ml 140 ml Microbiology Date/Time Source Procedure Growth Status 12/23/18 13:25 Blood Blood Culture - Final NO GROWTH AFTER 5 DAYS Complete 01/03/19 16:22 Sputum Expectorated Gram Stain - Final Complete 01/03/19 16:22 Sputum Culture - Final Aruna Tropicalis Usual Respiratory Jeniffer Complete 01/03/19 03:30 Indwelling Cath Urine Culture - Final NO GROWTH AFTER 48 HOURS Complete 12/25/18 05:00 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 Complete Current Medications Medications (Trade) Dose Ordered Sig/Katie Route PRN Reason Start Time Stop Time Status Last Admin Dose Admin Acetaminophen (Tylenol) 650 mg Q6H PRN RECTAL Mild Pain (Pain Scale 1-3) 01/01/19 13:51 01/31/19 13:50 Bisacodyl (Dulcolax) 10 mg DAILYPRN PRN RECTAL Constipation 01/01/19 13:51 01/31/19 13:50 Chlorhexidine Gluconate (Radhika-Hex 2%) 1 applic DAILY@2000 TOPIC 01/01/19 20:00 01/23/19 19:59 01/07/19 21:23 Dextrose (Dextrose 50%) 25 ml Q30M PRN IV Hypoglycemia 01/03/19 23:00 02/02/19 22:59 Dextrose (Dextrose 50%) 50 ml Q30M PRN IV Hypoglycemia 01/03/19 23:00 02/02/19 22:59 01/03/19 23:02 Diltiazem HCl (Cardizem) 60 mg EVERY 8 HOURS GT 01/01/19 22:00 01/31/19 21:59 01/07/19 06:34 Furosemide (Lasix) 20 mg DAILY IV 01/03/19 11:45 02/02/19 11:44 01/06/19 08:09 Heparin Sodium (Porcine) (Heparin 5000 units/ml) 5,000 units EVERY 12 HOURS SUBQ 01/01/19 21:00 01/27/19 20:59 01/07/19 21:24 Insulin Aspart (NovoLOG) EVERY 6 HOURS SUBQ 01/05/19 18:00 02/03/19 06:29 01/08/19 06:55 Levalbuterol HCl (Xopenex) 1.25 mg Q4HRT HHN 01/05/19 11:00 01/10/19 10:59 01/08/19 11:14 Methylprednisolone Sodium Succinate (Solu-MEDROL) 20 mg Q12H IV 01/01/19 18:00 01/22/19 21:59 01/08/19 06:55 Pantoprazole (Protonix) 40 mg DAILY IVP 01/02/19 09:00 01/23/19 08:59 01/08/19 09:03 Sodium Hypochlorite (Dakin's Quarter Strength) 1 applic DAILY TOPIC 01/04/19 09:00 02/03/19 08:59 01/08/19 09:05 Tamsulosin HCl (Flomax) 0.4 mg BEDTIME ORAL 01/01/19 21:00 01/28/19 20:59 01/07/19 21:23 Height (Feet): 5 Height (Inches): 7.00 Weight (Pounds): 115 Objective exam stable scrotum appears smaller Bubba Felix MD Jan 08, 2019 11:15
--- NOTE | 2019-01-08 13:51 | Surgery Progress Note ---
Surgery Progress Note Subjective Procedure Performed Tracheostomy Additional Comments Comfortable appearing. Labs noted. Exam stable. Tolerating feeds with PEG. Objective Last 24 Hour Vital Signs Date Time Temp Pulse Resp B/P (MAP) Pulse Ox O2 Delivery O2 Flow Rate FiO2 01/08/19 13:24 96 24 21 21 01/08/19 13:00 83 12 120/44 (69) 100 01/08/19 12:00 Mechanical Ventilator 01/08/19 12:00 98.8 97 14 125/55 (78) 100 01/08/19 12:00 21 01/08/19 11:11 87 12 100 Mechanical Ventilator 21 86 15 21 01/08/19 11:00 83 14 120/53 (75) 100 01/08/19 10:00 77 0 115/47 (69) 100 01/08/19 09:41 89 15 21 01/08/19 09:00 85 15 109/40 (63) 100 01/08/19 08:00 84 01/08/19 08:00 21 01/08/19 08:00 Mechanical Ventilator 01/08/19 08:00 78 17 93/38 (56) 100 01/08/19 07:20 63 13 100 Mechanical Ventilator 21 63 13 21 21 01/08/19 07:00 98.8 67 13 108/42 (64) 100 01/08/19 06:00 59 116/48 01/08/19 06:00 67 13 116/48 (70) 100 01/08/19 05:00 61 0 104/64 (77) 100 01/08/19 04:43 62 11 21 21 01/08/19 04:00 65 01/08/19 04:00 Mechanical Ventilator 01/08/19 04:00 21 01/08/19 04:00 74 15 107/47 (67) 100 01/08/19 03:12 66 12 100 Mechanical Ventilator 21 64 10 21 21 01/08/19 03:00 61 0 104/64 (77) 100 01/08/19 02:00 70 10 98/42 (60) 100 01/08/19 01:22 63 11 21 21 01/08/19 01:00 71 10 115/45 (68) 100 01/08/19 00:00 Mechanical Ventilator 01/08/19 00:00 97.9 64 11 118/55 (76) 100 01/07/19 23:00 69 11 128/54 (78) 100 01/07/19 22:42 67 12 100 Mechanical Ventilator 21 62 10 21 21 01/07/19 22:00 64 11 117/47 (70) 100 01/07/19 22:00 56 117/47 01/07/19 21:00 66 12 126/46 (72) 100 01/07/19 20:58 62 11 21 21 01/07/19 20:00 66 10 113/47 (69) 100 01/07/19 20:00 Mechanical Ventilator 01/07/19 20:00 63 01/07/19 20:00 21 01/07/19 19:00 69 10 119/53 (75) 100 01/07/19 18:47 63 12 100 Mechanical Ventilator 21 68 10 21 21 01/07/19 18:00 63 9 116/47 (70) 100 01/07/19 17:00 65 13 119/50 (73) 100 01/07/19 16:59 68 12 21 01/07/19 16:00 61 01/07/19 16:00 Mechanical Ventilator 01/07/19 16:00 97.8 58 11 114/37 (62) 100 01/07/19 16:00 21 01/07/19 15:52 64 10 100 Mechanical Ventilator 21 01/07/19 15:00 80 21 138/56 (83) 100 01/07/19 14:50 57 16 100 Mechanical Ventilator 21 56 17 21 01/07/19 14:00 55 10 110/43 (65) 100 I&O Intake and Output 01/07/19 01/08/19 19:00 07:00 Intake Total 265 ml 350 ml Output Total 280 ml 140 ml Balance -15 ml 210 ml Free Water 100 ml Tube Feeding 165 ml 350 ml Output Urine Total 280 ml 140 ml Dressing: other Wound: other Drains: other Cardiovascular: RSR Respiratory: decreased breath sounds Abdomen: soft, present bowel sounds Extremities: no cyanosis, other Plan Problems: (1) Failure to thrive in adult Assessment & Plan: DAILY ESTIMATED NEEDS: Needs based on Wound healing, Pulmonary, Underweight/ 49.5kg 30-40 kcals/kg 2595-7323 total kcals 1.25-1.8 g protein/kg 62-89 g total protein 25-30 mL/kg 7954-1595 total fluid mLs NUTRITION DIAGNOSIS: Increased kcal/prot needs R/T underweight status, wound healing, severe COPD per MD as evidenced by pt is 73% IBW w/ BMI of 17.0, admitted w/ advanced sacral and rt elbow wounds, unstageable BL heel wounds, pending eval, currently on BIPAP, NPO. 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 Base of wound has 95% slough. 5% viable. Bone is palpable. Edges macerated. Non- blanching erythema periwound. No odor noted. Hyperpigmentation with surrounding darker skin tone without induration. Full thickness stage 4 sacral pressure injury with undermining . Base of wound has 60% slough, 40% oscar. Bone is palpable. Small amt brown exudate. Mild odor noted. Periwound darker skin tone noted. (L)7cm x (W)7.3cm x (D)2.5cm, undermining clockwise 8 -3 by 3.8cm @9o'clock. Necrotic area noted to R ischium.Periwound is intact.(L)0.4cm x (W)1.3cm. Stable dry eschar medial/lateral R foot (L)2.2cm x (W)1.5cm. periwound is intact. Black area without induration or fluctuance noted to distal/lateral R foot. (L) 1.5cm x (W)1.8cm. Stable dry eschar dorso/flexor R foot 0.4cm x (W)2.5cm. Unstageable pressure injury R heel. Base of wound is 100% necrotic . Periwound is boggy but no erythema noted (L)6.5cm x (W)7cm. Unstageable pressure injury L heel. Base of wound is 100% necrotic(L)1.5cm x (W) 2.5cm with surrounding pink epithelial bordered by hyperpigmentation(L)4cm x (W) 4.4cm. Reducible LIH Tx.Plan: Cleanse Sacral wound with Dakin's 0.125% mike. Loosely pack with Dakin's moistened kerlix. Apply Moisture Barrier Paste periwound. Cover with Optifoam drsg Twice Daily and prn. Cleanse R elbow with Dakin's 0.125% mike. Loosely pack with dakin's moist Kerlix gauze. Apply Moisture Barrier paste periwound.Cover with Optifoam drsg. Twice Daily and prn. Apply Betadine to R and L heels. Cover with Optifoam drsg. Change every 3 days and prn. Apply Betadine to necrotic areas Lateral R foot and dorso /flexor R foot. Cover each wound with Optifoam drsg every 3 days and prn. Apply Moisture Barrier paste to R ischium. Cover with Optifoam drsg. Change every 3 days and prn. Air Fluidized mattress. Reposition at least every 2hours or as tolerated. Off-load heels with pillow. Elevate R and L elbows with pillow. (4) Sepsis Assessment & Plan: leukocytosis tachypnea improved CXR noted labs noted respiratory decline trach needs nutrition LIH reducible cont abx IV fluids feeds and nutritional support will monitor LIH will follow with recs (5) Respiratory failure (6) Left elbow contusion Sher Keene Jan 08, 2019 13:51
[2019-01-08] MEDS ORDERED: Acetaminophen 650 MG SUPP RECTAL PRN (16:30)
--- NOTE | 2019-01-08 20:12 | Pulmonolgy Critical Care Note ---
Critical Care - Asmt/Plan Assessment/Plan: 1. Acute on chronic respiratory failure. 2. 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 3. Cachexia and malnutrition. 4. Atherosclerotic aortic and cardiac disease. 5. History of hypertension, now hypotensive. 6. Urinary tract infection. 7. Diastolic heart failure with edema 8. Glaucoma. 9. Prostate hypertrophy. 10. Anemia. weaning as toelrated nebs adn suction wound care monitor uop abx start feeds per GI disc w GI dc plan Wednesday to Respiratory: weaning trial Cardiac: stop pressors Infectious Disease: continue antibiotics Gastrointestinal: continue feedings/current rate Endocrine: monitor blood sugar Neurologic: PRN Ativan Time Spent (Minutes): 40 Notes Reviewed: front tender, cardio, renal Discussed with: consultants Critical Care - Objective Last 24 Hour Vital Signs Date Time Temp Pulse Resp B/P (MAP) Pulse Ox O2 Delivery O2 Flow Rate FiO2 01/08/19 19:51 88 15 100 Mechanical Ventilator 21 91 15 21 01/08/19 17:15 91 15 21 01/08/19 16:13 92 11 99 Mechanical Ventilator 21 92 11 21 01/08/19 16:00 97.9 76 16 103/54 (70) 100 01/08/19 16:00 111 01/08/19 16:00 100 01/08/19 16:00 21 01/08/19 16:00 Mechanical Ventilator 01/08/19 15:00 106 16 129/58 (81) 100 01/08/19 14:58 119 143/51 01/08/19 14:00 95 17 143/51 (81) 100 01/08/19 13:24 96 24 21 21 01/08/19 13:00 83 12 120/44 (69) 100 01/08/19 12:00 Mechanical Ventilator 01/08/19 12:00 99 01/08/19 12:00 98.8 97 14 125/55 (78) 100 01/08/19 12:00 21 01/08/19 11:11 87 12 100 Mechanical Ventilator 21 86 15 21 01/08/19 11:00 83 14 120/53 (75) 100 01/08/19 10:00 77 0 115/47 (69) 100 01/08/19 09:41 89 15 21 01/08/19 09:00 85 15 109/40 (63) 100 01/08/19 08:00 84 01/08/19 08:00 21 01/08/19 08:00 Mechanical Ventilator 01/08/19 08:00 78 17 93/38 (56) 100 01/08/19 07:20 63 13 100 Mechanical Ventilator 21 63 13 21 21 01/08/19 07:00 98.8 67 13 108/42 (64) 100 01/08/19 06:00 59 116/48 01/08/19 06:00 67 13 116/48 (70) 100 01/08/19 05:00 61 0 104/64 (77) 100 01/08/19 04:43 62 11 21 21 01/08/19 04:00 65 01/08/19 04:00 Mechanical Ventilator 01/08/19 04:00 21 01/08/19 04:00 74 15 107/47 (67) 100 01/08/19 03:12 66 12 100 Mechanical Ventilator 21 64 10 21 21 01/08/19 03:00 61 0 104/64 (77) 100 01/08/19 02:00 70 10 98/42 (60) 100 01/08/19 01:22 63 11 21 21 01/08/19 01:00 71 10 115/45 (68) 100 01/08/19 00:00 Mechanical Ventilator 01/08/19 00:00 97.9 64 11 118/55 (76) 100 01/07/19 23:00 69 11 128/54 (78) 100 01/07/19 22:42 67 12 100 Mechanical Ventilator 21 62 10 21 21 01/07/19 22:00 64 11 117/47 (70) 100 01/07/19 22:00 56 117/47 01/07/19 21:00 66 12 126/46 (72) 100 01/07/19 20:58 62 11 21 21 Status: awake Condition: improving Lungs: rhonchi Heart: HR/BP stable Abdomen: soft, non-tender Extremities: edema Accucheck: 272 Critical Care - Subjective ROS Limited/Unobtainable: Yes FI02: 21 Vent Support Breath Rate: 10 Vent Support Mode: AC Vent Tidal Volume: 500 Sputum Amount: Small PEEP: 0.0 PIP: 17 Tube Feeding Amount: 45 I&O: Intake and Output 01/07/19 01/08/19 19:00 07:00 Intake Total 265 ml 350 ml Output Total 280 ml 140 ml Balance -15 ml 210 ml Free Water 100 ml Tube Feeding 165 ml 350 ml Output Urine Total 280 ml 140 ml Subjective: remains on the vent sp trach adn peg awake no weaning today on ivf no cp nv or bleeding positive uop CXR: no new cxr Labs: Current Medications Medications (Trade) Dose Ordered Sig/Katie Route PRN Reason Start Time Stop Time Status Last Admin Dose Admin Acetaminophen (Tylenol) 650 mg Q6H PRN RECTAL Mild Pain (Pain Scale 1-3) 01/08/19 16:30 01/31/19 16:29 Bisacodyl (Dulcolax) 10 mg DAILYPRN PRN RECTAL Constipation 01/08/19 16:30 02/07/19 16:29 Chlorhexidine Gluconate (Radhika-Hex 2%) 1 applic DAILY@1999 TOPIC 01/08/19 20:00 01/23/19 19:59 Dextrose (Dextrose 50%) 25 ml Q30M PRN IV Hypoglycemia 01/08/19 16:30 02/02/19 22:59 Dextrose (Dextrose 50%) 50 ml Q30M PRN IV Hypoglycemia 01/08/19 16:30 02/02/19 22:59 Diltiazem HCl (Cardizem) 60 mg EVERY 8 HOURS GT 01/08/19 22:00 01/31/19 21:59 Furosemide (Lasix) 20 mg DAILY IV 01/09/19 09:00 02/02/19 11:44 Heparin Sodium (Porcine) (Heparin 5000 units/ml) 5,000 units EVERY 12 HOURS SUBQ 01/08/19 21:00 01/27/19 20:59 Insulin Aspart (NovoLOG) EVERY 6 HOURS SUBQ 01/08/19 18:00 02/03/19 06:29 01/08/19 17:56 Levalbuterol HCl (Xopenex) 1.25 mg Q4HRT HHN 01/08/19 19:00 01/10/19 10:59 01/08/19 19:50 Methylprednisolone Sodium Succinate (Solu-MEDROL) 20 mg Q12H IV 01/08/19 18:00 01/22/19 21:59 01/08/19 17:52 Pantoprazole (Protonix) 40 mg DAILY IVP 01/09/19 09:00 01/23/19 08:59 Sodium Hypochlorite (Dakin's Quarter Strength) 1 applic DAILY TOPIC 01/09/19 09:00 02/03/19 08:59 Tamsulosin HCl (Flomax) 0.4 mg BEDTIME ORAL 01/08/19 21:00 01/28/19 20:59 Emma Ramesh DO Jan 08, 2019 20:12
[2019-01-08] MEDS: Dyna-Hex 2% Top Sol 2oz TOPIC SCH (20:17)
[2019-01-08] MEDS: Tamsulosin 0.4mg cap ORAL SCH (20:17)
[2019-01-09] VITALS: BP 111/47
--- NOTE | 2019-01-09 | Diagnostic Imaging Report ---
APPROVED REPORT CPT Code: 35892 Present Symptoms Right Comments: RIGHT ARM PAIN AND EDEMA. RIGHT UPPER EXTREMITY: Venous imaging reveals patency of the subclavian, axillary and brachial veins. The cephalic and basilic veins are also patent. Doppler indicates normal spontaneous flow within these venous segments. The right internal jugular vein was not imaged, due to a central line.
[2019-01-09] MEDS: NovoLOG Insulin Flexpen SUBQ SCH ×5 (00:22→23:46)
[2019-01-09] MEDS: Levalbuterol Inh UD 1.25mg/0.5ml HHN SCH ×6 (02:49→23:36)
[2019-01-09 04:00] VITALS: BP 147/66
[2019-01-09] MEDS: dilTIAZem HCl 60mg tab GT SCH ×3 (05:24→22:00)
[2019-01-09] MEDS: Solu-MEDROL 40mg Inj IV SCH (06:07)
[2019-01-09 06:24] LABS: HEMATOCRIT 25.6 % (42.0-52.0); MEAN CORPUSCULAR VOLUME 93 FL (80-99); PLATELET COUNT 205 K/UL (150-450); RED BLOOD COUNT 2.75 M/UL (4.70-6.10); RED CELL DISTRIBUTION WIDTH 14.8 % (11.6-14.8); WHITE BLOOD COUNT 20.1 K/UL (4.8-10.8)
[2019-01-09 06:29] LABS: ANION GAP -1 mmol/L (5-15); BLOOD UREA NITROGEN 23 mg/dL (7-18); CALCIUM 7.6 MG/DL (8.5-10.1); CARBON DIOXIDE 37 MMOL/L (21-32); CHLORIDE 104 MMOL/L (98-107); CREATININE 0.4 MG/DL (0.55-1.30); POTASSIUM 3.9 MMOL/L (3.5-5.1); SODIUM 140 MMOL/L (136-145)
[2019-01-09 08:00] VITALS: BP 125/54
--- NOTE | 2019-01-09 08:49 | Urology Progress Note ---
Assessment/Plan Assessment/Plan: 1. Urinary retention. 2. Benign prostatic hypertrophy. 3. Rule out neurogenic bladder. 4. Scrotal enlargement, probable inguinal hernia versus hydrocele. 5. Hematuria. 6. Pyuria. 7. Proteinuria. maintain kline hand irrigate PRN on flomax voiding trial later abx PRN Subjective Allergies: Coded Allergies: DORZOLAMIDE (Unverified Allergy, Unknown, 12/23/18) LISINOPRIL (Unverified Allergy, Unknown, 12/23/18) TIMOLOL (Unverified Allergy, Unknown, 12/23/18) TIOTROPIUM (Unverified Allergy, Unknown, 12/23/18) Subjective all noted, non-verbal Objective Last 24 Hour Vital Signs Date Time Temp Pulse Resp B/P (MAP) Pulse Ox O2 Delivery O2 Flow Rate FiO2 01/09/19 08:00 Mechanical Ventilator 01/09/19 08:00 21 01/09/19 07:28 57 11 96 Mechanical Ventilator 40.0 21 62 12 21 01/09/19 05:24 79 104/51 01/09/19 05:19 62 11 21 01/09/19 04:00 21 01/09/19 04:00 97.8 74 25 147/66 (93) 98 01/09/19 04:00 93 01/09/19 04:00 Mechanical Ventilator 01/09/19 02:47 102 12 100 Mechanical Ventilator 21 99 12 21 01/09/19 01:03 98 14 21 01/09/19 00:00 Mechanical Ventilator 01/09/19 00:00 99 01/09/19 00:00 97.5 95 22 111/47 (68) 100 01/08/19 23:41 92 13 100 Mechanical Ventilator 21 92 11 21 01/08/19 21:52 93 113/47 01/08/19 21:42 104 10 21 01/08/19 20:00 97.7 93 20 113/47 (69) 100 01/08/19 20:00 21 01/08/19 20:00 Mechanical Ventilator 01/08/19 20:00 104 01/08/19 19:51 88 15 100 Mechanical Ventilator 21 91 15 21 01/08/19 17:15 91 15 21 01/08/19 16:13 92 11 99 Mechanical Ventilator 21 92 11 21 01/08/19 16:00 97.9 76 16 103/54 (70) 100 01/08/19 16:00 111 01/08/19 16:00 100 01/08/19 16:00 21 01/08/19 16:00 Mechanical Ventilator 01/08/19 15:00 106 16 129/58 (81) 100 01/08/19 14:58 119 143/51 01/08/19 14:00 95 17 143/51 (81) 100 01/08/19 13:24 96 24 21 21 01/08/19 13:00 83 12 120/44 (69) 100 01/08/19 12:00 Mechanical Ventilator 01/08/19 12:00 99 01/08/19 12:00 98.8 97 14 125/55 (78) 100 01/08/19 12:00 21 01/08/19 11:11 87 12 100 Mechanical Ventilator 21 86 15 21 01/08/19 11:00 83 14 120/53 (75) 100 01/08/19 10:00 77 0 115/47 (69) 100 01/08/19 09:41 89 15 21 01/08/19 09:00 85 15 109/40 (63) 100 Intake and Output 01/08/19 01/09/19 18:59 06:59 Intake Total 540 ml 640 ml Output Total 215 ml Balance 325 ml 640 ml Free Water 100 ml Tube Feeding 540 ml 540 ml Output Urine Total 215 ml Microbiology Date/Time Source Procedure Growth Status 12/23/18 13:25 Blood Blood Culture - Final NO GROWTH AFTER 5 DAYS Complete 01/03/19 16:22 Sputum Expectorated Gram Stain - Final Complete 01/03/19 16:22 Sputum Culture - Final Aruna Tropicalis Usual Respiratory Jeniffer Complete 01/03/19 03:30 Indwelling Cath Urine Culture - Final NO GROWTH AFTER 48 HOURS Complete 12/25/18 05:00 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 Complete Current Medications Medications (Trade) Dose Ordered Sig/Katie Route PRN Reason Start Time Stop Time Status Last Admin Dose Admin Acetaminophen (Tylenol) 650 mg Q6H PRN RECTAL Mild Pain (Pain Scale 1-3) 01/08/19 16:30 01/31/19 16:29 Bisacodyl (Dulcolax) 10 mg DAILYPRN PRN RECTAL Constipation 01/08/19 16:30 02/07/19 16:29 Chlorhexidine Gluconate (Radhika-Hex 2%) 1 applic DAILY@1999 TOPIC 01/08/19 20:00 01/23/19 19:59 01/08/19 20:17 Dextrose (Dextrose 50%) 25 ml Q30M PRN IV Hypoglycemia 01/08/19 16:30 02/02/19 22:59 Dextrose (Dextrose 50%) 50 ml Q30M PRN IV Hypoglycemia 01/08/19 16:30 02/02/19 22:59 Diltiazem HCl (Cardizem) 60 mg EVERY 8 HOURS GT 01/08/19 22:00 01/31/19 21:59 01/09/19 05:24 Furosemide (Lasix) 20 mg DAILY IV 01/09/19 09:00 02/02/19 11:44 Heparin Sodium (Porcine) (Heparin 5000 units/ml) 5,000 units EVERY 12 HOURS SUBQ 01/08/19 21:00 01/27/19 20:59 01/08/19 20:20 Insulin Aspart (NovoLOG) EVERY 6 HOURS SUBQ 01/08/19 18:00 02/03/19 06:29 01/09/19 05:27 Levalbuterol HCl (Xopenex) 1.25 mg Q4HRT HHN 01/08/19 19:00 01/10/19 10:59 01/09/19 07:22 Methylprednisolone Sodium Succinate (Solu-MEDROL) 20 mg Q12H IV 01/08/19 18:00 01/22/19 21:59 01/09/19 06:07 Pantoprazole (Protonix) 40 mg DAILY IVP 01/09/19 09:00 01/23/19 08:59 Sodium Hypochlorite (Dakin's Quarter Strength) 1 applic DAILY TOPIC 01/09/19 09:00 02/03/19 08:59 Tamsulosin HCl (Flomax) 0.4 mg BEDTIME ORAL 01/08/19 21:00 01/28/19 20:59 01/08/19 20:17 Laboratory Tests 01/09/19 05:45: White Blood Count 20.1H, Red Blood Count 2.75L, Hemoglobin 8.0L, Hematocrit 25.6L, Mean Corpuscular Volume 93, Mean Corpuscular Hemoglobin 29.1, Mean Corpuscular Hemoglobin Concent 31.3L, Red Cell Distribution Width 14.8, Platelet Count 205, Mean Platelet Volume 8.9, Neutrophils (%) (Auto) , Lymphocytes (%) (Auto) , Monocytes (%) (Auto) , Eosinophils (%) (Auto) , Basophils (%) (Auto) , Differential Total Cells Counted 100, Neutrophils % ( Manual) 96H, Lymphocytes % (Manual) 1L, Monocytes % (Manual) 3, Eosinophils % ( Manual) 0, Basophils % (Manual) 0, Band Neutrophils 0, Platelet Estimate Adequate, Platelet Morphology Normal, Hypochromasia 2+, Anisocytosis 1+, Sodium Level 140, Potassium Level 3.9, Chloride Level 104, Carbon Dioxide Level 37H, Anion Gap -1L, Blood Urea Nitrogen 23H, Creatinine 0.4L, Estimat Glomerular Filtration Rate , Glucose Level 159H, Calcium Level 7.6L Height (Feet): 5 Height (Inches): 7.00 Weight (Pounds): 135 Objective exam stable scrotum appears smaller Bubba Felix MD Jan 09, 2019 08:49
[2019-01-09] MEDS ORDERED: Pantoprazole Inj IVP SCH (09:00)
--- NOTE | 2019-01-09 09:05 | General Progress Note ---
Assessment/Plan Assessment/Plan: Assessment - Resp failure, s/p trach - dysphagia, s/p PEG - COPD - CHF - CAD - GERD - BPH - Anemia - multifactorial Recommendations - pulmonary toilet - Continue TF - follow CBC - elevate HOB Subjective Allergies: Coded Allergies: DORZOLAMIDE (Unverified Allergy, Unknown, 12/23/18) LISINOPRIL (Unverified Allergy, Unknown, 12/23/18) TIMOLOL (Unverified Allergy, Unknown, 12/23/18) TIOTROPIUM (Unverified Allergy, Unknown, 12/23/18) Subjective above noted tolerating TF Objective Last 24 Hour Vital Signs Date Time Temp Pulse Resp B/P (MAP) Pulse Ox O2 Delivery O2 Flow Rate FiO2 01/09/19 08:00 Mechanical Ventilator 01/09/19 08:00 21 01/09/19 07:28 57 11 96 Mechanical Ventilator 40.0 21 62 12 21 01/09/19 05:24 79 104/51 01/09/19 05:19 62 11 21 01/09/19 04:00 21 01/09/19 04:00 97.8 74 25 147/66 (93) 98 01/09/19 04:00 93 01/09/19 04:00 Mechanical Ventilator 01/09/19 02:47 102 12 100 Mechanical Ventilator 21 99 12 21 01/09/19 01:03 98 14 21 01/09/19 00:00 Mechanical Ventilator 01/09/19 00:00 99 01/09/19 00:00 97.5 95 22 111/47 (68) 100 01/08/19 23:41 92 13 100 Mechanical Ventilator 21 92 11 21 01/08/19 21:52 93 113/47 01/08/19 21:42 104 10 21 01/08/19 20:00 97.7 93 20 113/47 (69) 100 01/08/19 20:00 21 01/08/19 20:00 Mechanical Ventilator 01/08/19 20:00 104 01/08/19 19:51 88 15 100 Mechanical Ventilator 21 91 15 21 01/08/19 17:15 91 15 21 01/08/19 16:13 92 11 99 Mechanical Ventilator 21 92 11 21 01/08/19 16:00 97.9 76 16 103/54 (70) 100 01/08/19 16:00 111 01/08/19 16:00 100 01/08/19 16:00 21 01/08/19 16:00 Mechanical Ventilator 01/08/19 15:00 106 16 129/58 (81) 100 01/08/19 14:58 119 143/51 01/08/19 14:00 95 17 143/51 (81) 100 01/08/19 13:24 96 24 21 21 01/08/19 13:00 83 12 120/44 (69) 100 01/08/19 12:00 Mechanical Ventilator 01/08/19 12:00 99 01/08/19 12:00 98.8 97 14 125/55 (78) 100 01/08/19 12:00 21 01/08/19 11:11 87 12 100 Mechanical Ventilator 21 86 15 21 01/08/19 11:00 83 14 120/53 (75) 100 01/08/19 10:00 77 0 115/47 (69) 100 01/08/19 09:41 89 15 21 Intake and Output 01/08/19 01/09/19 18:59 06:59 Intake Total 540 ml 640 ml Output Total 215 ml Balance 325 ml 640 ml Free Water 100 ml Tube Feeding 540 ml 540 ml Output Urine Total 215 ml Laboratory Tests 01/09/19 05:45: White Blood Count 20.1H, Red Blood Count 2.75L, Hemoglobin 8.0L, Hematocrit 25.6L, Mean Corpuscular Volume 93, Mean Corpuscular Hemoglobin 29.1, Mean Corpuscular Hemoglobin Concent 31.3L, Red Cell Distribution Width 14.8, Platelet Count 205, Mean Platelet Volume 8.9, Neutrophils (%) (Auto) , Lymphocytes (%) (Auto) , Monocytes (%) (Auto) , Eosinophils (%) (Auto) , Basophils (%) (Auto) , Differential Total Cells Counted 100, Neutrophils % ( Manual) 96H, Lymphocytes % (Manual) 1L, Monocytes % (Manual) 3, Eosinophils % ( Manual) 0, Basophils % (Manual) 0, Band Neutrophils 0, Platelet Estimate Adequate, Platelet Morphology Normal, Hypochromasia 2+, Anisocytosis 1+, Sodium Level 140, Potassium Level 3.9, Chloride Level 104, Carbon Dioxide Level 37H, Anion Gap -1L, Blood Urea Nitrogen 23H, Creatinine 0.4L, Estimat Glomerular Filtration Rate , Glucose Level 159H, Calcium Level 7.6L Height (Feet): 5 Height (Inches): 7.00 Weight (Pounds): 135 Objective Thin AA man NCAT Neck (+) trach Chest: Coarse BS CV: RR abd: Soft, (+) PEG no edema Barry Bermeo MD Jan 09, 2019 09:05
[2019-01-09] MEDS: Dakin's 0.125% Soln (Quarter Strength) 16oz TOPIC SCH (09:39)
[2019-01-09] MEDS: Heparin 5000 units/ml inj SUBQ SCH ×2 (09:49→20:38)
[2019-01-09 12:00] VITALS: BP 117/49
--- NOTE | 2019-01-09 12:40 | Pulmonology Progress Note ---
Assessment/Plan Assessment/Plan 1. Acute on chronic respiratory failure. 2. 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 3. Cachexia and malnutrition. 4. Atherosclerotic aortic and cardiac disease. 5. History of hypertension, now hypotensive. 6. Urinary tract infection. 7. Diastolic heart failure with edema 8. Glaucoma. 9. Prostate hypertrophy. 10. Anemia. sat ok on 21% FiO2 change IV meds to PEG disc w RN dc plan to subacute when bed available Subjective ROS Limited/Unobtainable: Yes Allergies: Coded Allergies: DORZOLAMIDE (Unverified Allergy, Unknown, 12/23/18) LISINOPRIL (Unverified Allergy, Unknown, 12/23/18) TIMOLOL (Unverified Allergy, Unknown, 12/23/18) TIOTROPIUM (Unverified Allergy, Unknown, 12/23/18) Objective Last 24 Hour Vital Signs Date Time Temp Pulse Resp B/P (MAP) Pulse Ox O2 Delivery O2 Flow Rate FiO2 01/09/19 10:51 62 01/09/19 10:41 64 10 21 01/09/19 09:27 60 10 21 01/09/19 08:00 Mechanical Ventilator 01/09/19 08:00 21 01/09/19 08:00 98.2 74 14 125/54 (77) 95 01/09/19 07:28 57 11 96 Mechanical Ventilator 40.0 21 62 12 21 01/09/19 05:24 79 104/51 01/09/19 05:19 62 11 21 01/09/19 04:00 21 01/09/19 04:00 97.8 74 25 147/66 (93) 98 01/09/19 04:00 93 01/09/19 04:00 Mechanical Ventilator 01/09/19 02:47 102 12 100 Mechanical Ventilator 21 99 12 21 01/09/19 01:03 98 14 21 01/09/19 00:00 Mechanical Ventilator 01/09/19 00:00 99 01/09/19 00:00 97.5 95 22 111/47 (68) 100 01/08/19 23:41 92 13 100 Mechanical Ventilator 21 92 11 21 01/08/19 21:52 93 113/47 01/08/19 21:42 104 10 21 01/08/19 20:00 97.7 93 20 113/47 (69) 100 01/08/19 20:00 21 01/08/19 20:00 Mechanical Ventilator 01/08/19 20:00 104 01/08/19 19:51 88 15 100 Mechanical Ventilator 21 91 15 21 01/08/19 17:15 91 15 21 01/08/19 16:13 92 11 99 Mechanical Ventilator 21 92 11 21 01/08/19 16:00 97.9 76 16 103/54 (70) 100 01/08/19 16:00 111 01/08/19 16:00 100 01/08/19 16:00 21 01/08/19 16:00 Mechanical Ventilator 01/08/19 15:00 106 16 129/58 (81) 100 01/08/19 14:58 119 143/51 01/08/19 14:00 95 17 143/51 (81) 100 01/08/19 13:24 96 24 21 21 01/08/19 13:00 83 12 120/44 (69) 100 Intake and Output 01/08/19 01/09/19 19:00 07:00 Intake Total 540 ml 740 ml Output Total 205 ml 600 ml Balance 335 ml 140 ml Free Water 200 ml Tube Feeding 540 ml 540 ml Output Urine Total 205 ml 600 ml Objective trach/vent General Appearance: WD/WN, cachetic HEENT: atraumatic Respiratory/Chest: lungs clear, decreased breath sounds Cardiovascular: normal rate Laboratory Tests 01/09/19 05:45: White Blood Count 20.1H, Red Blood Count 2.75L, Hemoglobin 8.0L, Hematocrit 25.6L, Mean Corpuscular Volume 93, Mean Corpuscular Hemoglobin 29.1, Mean Corpuscular Hemoglobin Concent 31.3L, Red Cell Distribution Width 14.8, Platelet Count 205, Mean Platelet Volume 8.9, Neutrophils (%) (Auto) , Lymphocytes (%) (Auto) , Monocytes (%) (Auto) , Eosinophils (%) (Auto) , Basophils (%) (Auto) , Differential Total Cells Counted 100, Neutrophils % ( Manual) 96H, Lymphocytes % (Manual) 1L, Monocytes % (Manual) 3, Eosinophils % ( Manual) 0, Basophils % (Manual) 0, Band Neutrophils 0, Platelet Estimate Adequate, Platelet Morphology Normal, Hypochromasia 2+, Anisocytosis 1+, Sodium Level 140, Potassium Level 3.9, Chloride Level 104, Carbon Dioxide Level 37H, Anion Gap -1L, Blood Urea Nitrogen 23H, Creatinine 0.4L, Estimat Glomerular Filtration Rate , Glucose Level 159H, Calcium Level 7.6L Current Medications Medications (Trade) Dose Ordered Sig/Katie Route PRN Reason Start Time Stop Time Status Last Admin Dose Admin Acetaminophen (Tylenol) 650 mg Q6H PRN RECTAL Mild Pain (Pain Scale 1-3) 01/08/19 16:30 01/31/19 16:29 Bisacodyl (Dulcolax) 10 mg DAILYPRN PRN RECTAL Constipation 01/08/19 16:30 02/07/19 16:29 Chlorhexidine Gluconate (Radhika-Hex 2%) 1 applic DAILY@1999 TOPIC 01/08/19 20:00 01/23/19 19:59 01/08/19 20:17 Dextrose (Dextrose 50%) 25 ml Q30M PRN IV Hypoglycemia 01/08/19 16:30 02/02/19 22:59 Dextrose (Dextrose 50%) 50 ml Q30M PRN IV Hypoglycemia 01/08/19 16:30 02/02/19 22:59 Diltiazem HCl (Cardizem) 60 mg EVERY 8 HOURS GT 01/08/19 22:00 01/31/19 21:59 01/09/19 05:24 Furosemide (Lasix) 20 mg DAILY GT 01/10/19 09:00 02/09/19 08:59 Heparin Sodium (Porcine) (Heparin 5000 units/ml) 5,000 units EVERY 12 HOURS SUBQ 01/08/19 21:00 01/27/19 20:59 01/09/19 09:49 Insulin Aspart (NovoLOG) EVERY 6 HOURS SUBQ 01/08/19 18:00 02/03/19 06:29 01/09/19 05:27 Lansoprazole (Prevacid) 30 mg DAILY GT 01/10/19 09:00 02/09/19 08:59 Levalbuterol HCl (Xopenex) 1.25 mg Q4HRT HHN 01/08/19 19:00 01/10/19 10:59 01/09/19 07:22 Prednisone (predniSONE) 20 mg Q24H GT 01/09/19 18:00 02/08/19 17:59 Sodium Hypochlorite (Dakin's Quarter Strength) 1 applic DAILY TOPIC 01/09/19 09:00 02/03/19 08:59 01/09/19 09:39 Tamsulosin HCl (Flomax) 0.4 mg BEDTIME ORAL 01/08/19 21:00 01/28/19 20:59 01/08/19 20:17 Eliseo Pena MD Jan 09, 2019 12:40
[2019-01-09 16:00] VITALS: BP 122/48
--- NOTE | 2019-01-09 18:13 | Surgery Progress Note ---
Surgery Progress Note Subjective Procedure Performed Tracheostomy Symptoms: improved, pain absent Objective Last 24 Hour Vital Signs Date Time Temp Pulse Resp B/P (MAP) Pulse Ox O2 Delivery O2 Flow Rate FiO2 01/09/19 17:20 64 10 21 01/09/19 16:00 Mechanical Ventilator 01/09/19 16:00 59 01/09/19 16:00 98.8 67 14 122/48 (72) 100 01/09/19 16:00 21 01/09/19 15:12 62 10 100 Mechanical Ventilator 40.0 21 64 10 21 01/09/19 13:24 59 10 21 01/09/19 12:00 98.0 61 12 117/49 (71) 95 01/09/19 12:00 21 01/09/19 12:00 Mechanical Ventilator 01/09/19 12:00 59 01/09/19 10:51 62 01/09/19 10:41 64 10 21 01/09/19 09:27 60 10 21 01/09/19 08:00 Mechanical Ventilator 01/09/19 08:00 21 01/09/19 08:00 98.2 74 14 125/54 (77) 95 01/09/19 07:28 57 11 96 Mechanical Ventilator 40.0 21 62 12 21 01/09/19 05:24 79 104/51 01/09/19 05:19 62 11 21 01/09/19 04:00 21 01/09/19 04:00 97.8 74 25 147/66 (93) 98 01/09/19 04:00 93 01/09/19 04:00 Mechanical Ventilator 01/09/19 02:47 102 12 100 Mechanical Ventilator 21 99 12 21 01/09/19 01:03 98 14 21 01/09/19 00:00 Mechanical Ventilator 01/09/19 00:00 99 01/09/19 00:00 97.5 95 22 111/47 (68) 100 01/08/19 23:41 92 13 100 Mechanical Ventilator 21 92 11 21 01/08/19 21:52 93 113/47 01/08/19 21:42 104 10 21 01/08/19 20:00 97.7 93 20 113/47 (69) 100 01/08/19 20:00 21 01/08/19 20:00 Mechanical Ventilator 01/08/19 20:00 104 01/08/19 19:51 88 15 100 Mechanical Ventilator 21 91 15 21 I&O Intake and Output 01/08/19 01/09/19 19:00 07:00 Intake Total 540 ml 740 ml Output Total 205 ml 600 ml Balance 335 ml 140 ml Free Water 200 ml Tube Feeding 540 ml 540 ml Output Urine Total 205 ml 600 ml Dressing: other Wound: other Drains: other Cardiovascular: RSR Respiratory: decreased breath sounds Abdomen: soft, present bowel sounds Extremities: no cyanosis, other Laboratory Tests Test 01/09/19 05:45 White Blood Count 20.1 K/UL (4.8-10.8) H Red Blood Count 2.75 M/UL (4.70-6.10) L Hemoglobin 8.0 G/DL (14.2-18.0) L Hematocrit 25.6 % (42.0-52.0) L Mean Corpuscular Volume 93 FL (80-99) Mean Corpuscular Hemoglobin 29.1 PG (27.0-31.0) Mean Corpuscular Hemoglobin Concent 31.3 G/DL (32.0-36.0) L Red Cell Distribution Width 14.8 % (11.6-14.8) Platelet Count 205 K/UL (150-450) Mean Platelet Volume 8.9 FL (6.5-10.1) Neutrophils (%) (Auto) % (45.0-75.0) Lymphocytes (%) (Auto) % (20.0-45.0) Monocytes (%) (Auto) % (1.0-10.0) Eosinophils (%) (Auto) % (0.0-3.0) Basophils (%) (Auto) % (0.0-2.0) Differential Total Cells Counted 100 Neutrophils % (Manual) 96 % (45-75) H Lymphocytes % (Manual) 1 % (20-45) L Monocytes % (Manual) 3 % (1-10) Eosinophils % (Manual) 0 % (0-3) Basophils % (Manual) 0 % (0-2) Band Neutrophils 0 % (0-8) Platelet Estimate Adequate Platelet Morphology Normal Hypochromasia 2+ Anisocytosis 1+ Sodium Level 140 MMOL/L (136-145) Potassium Level 3.9 MMOL/L (3.5-5.1) Chloride Level 104 MMOL/L (98-107) Carbon Dioxide Level 37 MMOL/L (21-32) H Anion Gap -1 mmol/L (5-15) L Blood Urea Nitrogen 23 mg/dL (7-18) H Creatinine 0.4 MG/DL (0.55-1.30) L Estimat Glomerular Filtration Rate mL/min (>60) Glucose Level 159 MG/DL (74-106) H Calcium Level 7.6 MG/DL (8.5-10.1) L Plan Problems: (1) Failure to thrive in adult Assessment & Plan: DAILY ESTIMATED NEEDS: Needs based on Wound healing, Pulmonary, Underweight/ 49.5kg 30-40 kcals/kg 9553-1764 total kcals 1.25-1.8 g protein/kg 62-89 g total protein 25-30 mL/kg 8125-7061 total fluid mLs NUTRITION DIAGNOSIS: Increased kcal/prot needs R/T underweight status, wound healing, severe COPD per MD as evidenced by pt is 73% IBW w/ BMI of 17.0, admitted w/ advanced sacral and rt elbow wounds, unstageable BL heel wounds, pending eval, currently on BIPAP, NPO. CURRENT DIET:NPO PO DIET RECOMMENDATIONS: WHEN SAFE FOR ORAL DIET AND OFF BIPAP -> regular/ texture per ROAD EQUIPMENT OPERATOR ENTERAL NUTRITION RECOMMENDATIONS: CONSULT RD FOR TF REC IF INDICATED AND PART OF POC ADDITIONAL RECOMMENDATIONS: * Per SNF: HT=67", CP=141swn (as of 12/21) -> rec calibrated bedscale wt, weekly wt monitoring * ROAD EQUIPMENT OPERATOR evaluation prior to oral diet * Ensure Enlive TID w/ meals w/ oral diet * Wound healing: when able for oral meds -> add MVI w/ min x 1, Vit C 500mg BID, ZnSO4 220mg QD x 10 days -> Gaetano 1pkt BID (2) Malnutrition (3) Decubitus skin ulcer Assessment & Plan: Pt presented on admission with multiple pressure injuries. 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 Base of wound has 95% slough. 5% viable. Bone is palpable. Edges macerated. Non- blanching erythema periwound. No odor noted. Hyperpigmentation with surrounding darker skin tone without induration. Full thickness stage 4 sacral pressure injury with undermining . Base of wound has 60% slough, 40% oscar. Bone is palpable. Small amt brown exudate. Mild odor noted. Periwound darker skin tone noted. (L)7cm x (W)7.3cm x (D)2.5cm, undermining clockwise 8 -3 by 3.8cm @9o'clock. Necrotic area noted to R ischium.Periwound is intact.(L)0.4cm x (W)1.3cm. Stable dry eschar medial/lateral R foot (L)2.2cm x (W)1.5cm. periwound is intact. Black area without induration or fluctuance noted to distal/lateral R foot. (L) 1.5cm x (W)1.8cm. Stable dry eschar dorso/flexor R foot 0.4cm x (W)2.5cm. Unstageable pressure injury R heel. Base of wound is 100% necrotic . Periwound is boggy but no erythema noted (L)6.5cm x (W)7cm. Unstageable pressure injury L heel. Base of wound is 100% necrotic(L)1.5cm x (W) 2.5cm with surrounding pink epithelial bordered by hyperpigmentation(L)4cm x (W) 4.4cm. Reducible LIH Tx.Plan: Cleanse Sacral wound with Dakin's 0.125% mike. Loosely pack with Dakin's moistened kerlix. Apply Moisture Barrier Paste periwound. Cover with Optifoam drsg Twice Daily and prn. Cleanse R elbow with Dakin's 0.125% mike. Loosely pack with dakin's moist Kerlix gauze. Apply Moisture Barrier paste periwound.Cover with Optifoam drsg. Twice Daily and prn. Apply Betadine to R and L heels. Cover with Optifoam drsg. Change every 3 days and prn. Apply Betadine to necrotic areas Lateral R foot and dorso /flexor R foot. Cover each wound with Optifoam drsg every 3 days and prn. Apply Moisture Barrier paste to R ischium. Cover with Optifoam drsg. Change every 3 days and prn. Air Fluidized mattress. Reposition at least every 2hours or as tolerated. Off-load heels with pillow. Elevate R and L elbows with pillow. (4) Sepsis Assessment & Plan: leukocytosis tachypnea improved CXR noted labs noted respiratory decline trach needs nutrition LIH reducible cont abx IV fluids feeds and nutritional support will monitor LIH will follow with recs (5) Respiratory failure (6) Left elbow contusion Additional Comments d/c planning okay to d/c from surgical standpoint Sher Keene Jan 09, 2019 18:13
[2019-01-09 20:00] VITALS: BP 110/47
[2019-01-09] MEDS: Dyna-Hex 2% Top Sol 2oz TOPIC SCH (20:36)
[2019-01-09] MEDS: Tamsulosin 0.4mg cap ORAL SCH (20:36)
[2019-01-10] VITALS: BP 108/51
--- NOTE | 2019-01-10 02:00 | Progress Note ---
DATE: 01/08/2019 CARDIOLOGY PROGRESS NOTE SUBJECTIVE: The patient is status post PEG, uncomplicated. OBJECTIVE: VITAL SIGNS: Blood pressure 108/42, pulse 67, respirations 16. Monitored sinus. NECK: Thin secretions. Trach site clean. Right IJ line without bleeding. LUNGS: Few rhonchi. CARDIAC: Regular rhythm and rate. Normal S1, S2 with no new murmur. ABDOMEN: Slightly distended, but soft. EXTREMITIES: Trace edema. IMPRESSION: 1. Healthcare-acquired pneumonia. 2. Pleural effusion. 3. Respiratory failure, status post trach. 4. Chronic diastolic congestive heart failure. 5. Recovered shock due to sepsis. 6. Acute on chronic respiratory acidosis. 7. Compensatory metabolic alkalosis. PLAN: 1. No diuresis. 2. Respiratory hygiene. 3. Ventilator support. 4. No plans for weaning. 5. Nutrition by feeding tube. 6. Trend natriuretic peptide assay. Cody Melendez M.D. DR: CARISA JOB#: [id number] CC:
--- NOTE | 2019-01-10 02:00 | Progress Note ---
DATE: 01/05/2019 CARDIOLOGY PROGRESS NOTE Late entry, 01/05/2019 SUBJECTIVE: The patient is seen and evaluated. Status post trach, on ventilator support. Right IJ catheter without signs of bleeding at the entry site. OBJECTIVE: VITAL SIGNS: Blood pressure 103/45, pulse 67, respirations 20. Sinus rhythm. LUNGS: Thin secretions. Bilateral breath sounds. NG tube. CARDIAC: Regular rhythm and rate. Normal S1, S2. EXTREMITIES: Trace dependent edema. LABORATORY DATA: White count 18, hemoglobin 9.2. Sodium 138, potassium 3.9, bicarb 40, BUN 15, creatinine 0.4. Albumin 2. IMPRESSION: 1. Acute on chronic respiratory acidosis. 2. Compensatory metabolic alkalosis. 3. Status post sepsis with shock. 4. Respiratory failure. 5. Severe protein-calorie malnutrition. PLAN: 1. Chest x-ray. 2. G-tube planned. 3. Weaning as able. 4. status for diuresis based on clinical parameters. Cody Melendez M.D. DR: CARISA JOB#: [id number] CC:
--- NOTE | 2019-01-10 02:15 | Progress Note ---
DATE: 01/09/2019 CARDIOLOGY PROGRESS NOTE SUBJECTIVE: Status post trach and G-tube. Remains on ventilator support. Awaiting transfer to subacute facility on low-dose oxygen. OBJECTIVE: VITAL SIGNS: Blood pressure 125/54, pulse 74, and respirations 14. LUNGS: Diminished breath sounds. Few rhonchi. HEART: Regular rhythm and rate. Normal S1, S2. No third heart sound. ABDOMEN: Soft. G-tube intact. EXTREMITIES: No edema. Right IJ line clean and dry. IMPRESSION: 1. Chronic obstructive pulmonary disease. 2. Diastolic dysfunction with chronic congestive heart failure. 3. Respiratory failure with trach. 4. Sepsis with shock, recovered. 5. Healthcare acquired pneumonia with pleural effusion. 6. Long-term prognosis is poor. PLAN: 1. Cardiovascular regimen reviewed. 2. Trend natriuretic peptide assay. 3. No current role for diuresis. 4. Follow up arterial blood gases and adjust vent accordingly. Cody Melendez M.D. DR: CARISA JOB#: [id number] CC:
[2019-01-10] MEDS: Levalbuterol Inh UD 1.25mg/0.5ml HHN SCH ×2 (03:22→07:26)
[2019-01-10 04:00] VITALS: BP 111/62
[2019-01-10] MEDS: NovoLOG Insulin Flexpen SUBQ SCH ×4 (05:33→23:13)
[2019-01-10] MEDS: dilTIAZem HCl 60mg tab GT SCH ×3 (05:34→22:00)
[2019-01-10 08:00] VITALS: BP 114/53
[2019-01-10 09:40] LABS: HEMATOCRIT 26.5 % (42.0-52.0); HEMOGLOBIN 8.3 G/DL (14.2-18.0); MEAN CORPUSCULAR VOLUME 93 FL (80-99); PLATELET COUNT 194 K/UL (150-450); RED BLOOD COUNT 2.83 M/UL (4.70-6.10); RED CELL DISTRIBUTION WIDTH 15.1 % (11.6-14.8); WHITE BLOOD COUNT 17.4 K/UL (4.8-10.8)
[2019-01-10] MEDS: Heparin 5000 units/ml inj SUBQ SCH ×2 (09:48→20:32)
[2019-01-10] MEDS: Dakin's 0.125% Soln (Quarter Strength) 16oz TOPIC SCH (09:49)
--- NOTE | 2019-01-10 11:22 | Urology Progress Note ---
Assessment/Plan Assessment/Plan: 1. Urinary retention. 2. Benign prostatic hypertrophy. 3. Rule out neurogenic bladder. 4. Scrotal enlargement, probable inguinal hernia versus hydrocele. 5. Hematuria. 6. Pyuria. 7. Proteinuria. maintain kline hand irrigate PRN on flomax voiding trial later abx PRN Subjective Allergies: Coded Allergies: DORZOLAMIDE (Unverified Allergy, Unknown, 12/23/18) LISINOPRIL (Unverified Allergy, Unknown, 12/23/18) TIMOLOL (Unverified Allergy, Unknown, 12/23/18) TIOTROPIUM (Unverified Allergy, Unknown, 12/23/18) Subjective all noted, non-verbal Objective Last 24 Hour Vital Signs Date Time Temp Pulse Resp B/P (MAP) Pulse Ox O2 Delivery O2 Flow Rate FiO2 01/10/19 09:30 71 11 21 01/10/19 08:00 98.0 68 16 114/53 (73) 98 01/10/19 08:00 21 01/10/19 08:00 Mechanical Ventilator 01/10/19 08:00 69 01/10/19 07:26 71 11 100 Mechanical Ventilator 21 85 10 21 01/10/19 05:27 72 11 21 01/10/19 04:00 98.4 73 13 111/62 (78) 95 01/10/19 04:00 21 01/10/19 04:00 Mechanical Ventilator 01/10/19 03:25 66 01/10/19 03:22 71 10 100 Mechanical Ventilator 21 72 10 21 01/10/19 01:04 64 10 21 01/10/19 00:00 Mechanical Ventilator 01/10/19 00:00 21 01/10/19 00:00 98.5 59 10 108/51 (70) 96 01/09/19 23:36 68 10 100 Mechanical Ventilator 21 68 10 21 01/09/19 23:32 62 01/09/19 20:49 62 10 21 01/09/19 20:00 Mechanical Ventilator 01/09/19 20:00 21 01/09/19 20:00 98.4 62 12 110/47 (68) 98 01/09/19 19:04 61 01/09/19 19:01 65 10 100 Mechanical Ventilator 21 62 10 21 01/09/19 17:20 64 10 21 01/09/19 16:00 Mechanical Ventilator 01/09/19 16:00 59 01/09/19 16:00 98.8 67 14 122/48 (72) 100 01/09/19 16:00 21 01/09/19 15:12 62 10 100 Mechanical Ventilator 40.0 21 64 10 21 01/09/19 13:24 59 10 21 01/09/19 12:00 98.0 61 12 117/49 (71) 95 01/09/19 12:00 21 01/09/19 12:00 Mechanical Ventilator 01/09/19 12:00 59 Intake and Output 01/09/19 01/10/19 18:59 06:59 Intake Total 940 ml 690 ml Output Total 1300 ml 400 ml Balance -360 ml 290 ml Free Water 400 ml 150 ml Tube Feeding 540 ml 540 ml Output Urine Total 1300 ml 400 ml # Bowel Movements 1 Microbiology Date/Time Source Procedure Growth Status 12/23/18 13:25 Blood Blood Culture - Final NO GROWTH AFTER 5 DAYS Complete 01/03/19 16:22 Sputum Expectorated Gram Stain - Final Complete 01/03/19 16:22 Sputum Culture - Final Aruna Tropicalis Usual Respiratory Jeniffer Complete 01/03/19 03:30 Indwelling Cath Urine Culture - Final NO GROWTH AFTER 48 HOURS Complete 12/25/18 05:00 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 Complete Current Medications Medications (Trade) Dose Ordered Sig/Katie Route PRN Reason Start Time Stop Time Status Last Admin Dose Admin Acetaminophen (Tylenol) 650 mg Q6H PRN RECTAL Mild Pain (Pain Scale 1-3) 01/08/19 16:30 01/31/19 16:29 Bisacodyl (Dulcolax) 10 mg DAILYPRN PRN RECTAL Constipation 01/08/19 16:30 02/07/19 16:29 Dextrose (Dextrose 50%) 25 ml Q30M PRN IV Hypoglycemia 01/08/19 16:30 02/02/19 22:59 Dextrose (Dextrose 50%) 50 ml Q30M PRN IV Hypoglycemia 01/08/19 16:30 02/02/19 22:59 Diltiazem HCl (Cardizem) 60 mg EVERY 8 HOURS GT 01/08/19 22:00 01/31/19 21:59 01/09/19 05:24 Furosemide (Lasix) 20 mg DAILY GT 01/10/19 09:00 02/09/19 08:59 12/3/19 09:46 Heparin Sodium (Porcine) (Heparin 5000 units/ml) 5,000 units EVERY 12 HOURS SUBQ 01/08/19 21:00 01/27/19 20:59 01/10/19 09:48 Insulin Aspart (NovoLOG) EVERY 6 HOURS SUBQ 01/08/19 18:00 02/03/19 06:29 01/10/19 05:33 Lansoprazole (Prevacid) 30 mg DAILY GT 01/10/19 09:00 02/09/19 08:59 01/10/19 09:46 Prednisone (predniSONE) 20 mg Q24H GT 01/09/19 18:00 02/08/19 17:59 01/09/19 17:42 Sodium Hypochlorite (Dakin's Quarter Strength) 1 applic DAILY TOPIC 01/09/19 09:00 02/03/19 08:59 01/10/19 09:49 Tamsulosin HCl (Flomax) 0.4 mg BEDTIME ORAL 01/08/19 21:00 01/28/19 20:59 01/09/19 20:36 Laboratory Tests 01/10/19 09:15: White Blood Count 17.4H, Red Blood Count 2.83L, Hemoglobin 8.3L, Hematocrit 26.5L, Mean Corpuscular Volume 93, Mean Corpuscular Hemoglobin 29.2, Mean Corpuscular Hemoglobin Concent 31.2L, Red Cell Distribution Width 15.1H, Platelet Count 194, Mean Platelet Volume 8.8, Neutrophils (%) (Auto) , Lymphocytes (%) (Auto) , Monocytes (%) (Auto) , Eosinophils (%) (Auto) , Basophils (%) (Auto) , Differential Total Cells Counted 100, Neutrophils % ( Manual) 88H, Lymphocytes % (Manual) 6L, Monocytes % (Manual) 6, Eosinophils % ( Manual) 0, Basophils % (Manual) 0, Band Neutrophils 0, Platelet Estimate Adequate, Platelet Morphology Normal, Anisocytosis 1+ Height (Feet): 5 Height (Inches): 7.00 Weight (Pounds): 137 Objective exam stable scrotum appears smaller Bubba Felix MD Jan 10, 2019 11:22
[2019-01-10 12:00] VITALS: BP 115/75
--- NOTE | 2019-01-10 14:26 | Surgery Progress Note ---
Surgery Progress Note Subjective Procedure Performed Tracheostomy Symptoms: improved Objective Last 24 Hour Vital Signs Date Time Temp Pulse Resp B/P (MAP) Pulse Ox O2 Delivery O2 Flow Rate FiO2 01/10/19 14:15 65 115/75 01/10/19 12:00 98.8 73 16 115/75 (88) 97 01/10/19 12:00 21 01/10/19 12:00 Mechanical Ventilator 01/10/19 12:00 65 01/10/19 09:30 71 11 21 01/10/19 08:00 98.0 68 16 114/53 (73) 98 01/10/19 08:00 21 01/10/19 08:00 Mechanical Ventilator 01/10/19 08:00 69 01/10/19 07:26 71 11 100 Mechanical Ventilator 21 85 10 21 01/10/19 05:27 72 11 21 01/10/19 04:00 98.4 73 13 111/62 (78) 95 01/10/19 04:00 21 01/10/19 04:00 Mechanical Ventilator 01/10/19 03:25 66 01/10/19 03:22 71 10 100 Mechanical Ventilator 21 72 10 21 01/10/19 01:04 64 10 21 01/10/19 00:00 Mechanical Ventilator 01/10/19 00:00 21 01/10/19 00:00 98.5 59 10 108/51 (70) 96 01/09/19 23:36 68 10 100 Mechanical Ventilator 21 68 10 21 01/09/19 23:32 62 01/09/19 20:49 62 10 21 01/09/19 20:00 Mechanical Ventilator 01/09/19 20:00 21 01/09/19 20:00 98.4 62 12 110/47 (68) 98 01/09/19 19:04 61 01/09/19 19:01 65 10 100 Mechanical Ventilator 21 62 10 21 01/09/19 17:20 64 10 21 01/09/19 16:00 Mechanical Ventilator 01/09/19 16:00 59 01/09/19 16:00 98.8 67 14 122/48 (72) 100 01/09/19 16:00 21 01/09/19 15:12 62 10 100 Mechanical Ventilator 40.0 21 64 10 21 I&O Intake and Output 01/09/19 01/10/19 18:59 06:59 Intake Total 940 ml 690 ml Output Total 1300 ml 400 ml Balance -360 ml 290 ml Free Water 400 ml 150 ml Tube Feeding 540 ml 540 ml Output Urine Total 1300 ml 400 ml # Bowel Movements 1 Dressing: other Wound: other Drains: other Cardiovascular: RSR Respiratory: decreased breath sounds Abdomen: soft, present bowel sounds Extremities: no cyanosis Laboratory Tests Test 01/10/19 09:15 White Blood Count 17.4 K/UL (4.8-10.8) H Red Blood Count 2.83 M/UL (4.70-6.10) L Hemoglobin 8.3 G/DL (14.2-18.0) L Hematocrit 26.5 % (42.0-52.0) L Mean Corpuscular Volume 93 FL (80-99) Mean Corpuscular Hemoglobin 29.2 PG (27.0-31.0) Mean Corpuscular Hemoglobin Concent 31.2 G/DL (32.0-36.0) L Red Cell Distribution Width 15.1 % (11.6-14.8) H Platelet Count 194 K/UL (150-450) Mean Platelet Volume 8.8 FL (6.5-10.1) Neutrophils (%) (Auto) % (45.0-75.0) Lymphocytes (%) (Auto) % (20.0-45.0) Monocytes (%) (Auto) % (1.0-10.0) Eosinophils (%) (Auto) % (0.0-3.0) Basophils (%) (Auto) % (0.0-2.0) Differential Total Cells Counted 100 Neutrophils % (Manual) 88 % (45-75) H Lymphocytes % (Manual) 6 % (20-45) L Monocytes % (Manual) 6 % (1-10) Eosinophils % (Manual) 0 % (0-3) Basophils % (Manual) 0 % (0-2) Band Neutrophils 0 % (0-8) Platelet Estimate Adequate Platelet Morphology Normal Anisocytosis 1+ Plan Problems: (1) Failure to thrive in adult Assessment & Plan: DAILY ESTIMATED NEEDS: Needs based on Wound healing, Pulmonary, Underweight/ 49.5kg 30-40 kcals/kg 6271-4581 total kcals 1.25-1.8 g protein/kg 62-89 g total protein 25-30 mL/kg 8555-5003 total fluid mLs NUTRITION DIAGNOSIS: Increased kcal/prot needs R/T underweight status, wound healing, severe COPD per MD as evidenced by pt is 73% IBW w/ BMI of 17.0, admitted w/ advanced sacral and rt elbow wounds, unstageable BL heel wounds, pending eval, currently on BIPAP, NPO. CURRENT DIET:NPO PO DIET RECOMMENDATIONS: WHEN SAFE FOR ORAL DIET AND OFF BIPAP -> regular/ texture per WEIGHT REDUCING TECHNICIAN ENTERAL NUTRITION RECOMMENDATIONS: CONSULT RD FOR TF REC IF INDICATED AND PART OF POC ADDITIONAL RECOMMENDATIONS: * Per SNF: HT=67", XA=987sho (as of 12/21) -> rec calibrated bedscale wt, weekly wt monitoring * WEIGHT REDUCING TECHNICIAN evaluation prior to oral diet * Ensure Enlive TID w/ meals w/ oral diet * Wound healing: when able for oral meds -> add MVI w/ min x 1, Vit C 500mg BID, ZnSO4 220mg QD x 10 days -> Gaetano 1pkt BID (2) Malnutrition (3) Decubitus skin ulcer Assessment & Plan: Pt presented on admission with multiple pressure injuries. 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 Base of wound has 95% slough. 5% viable. Bone is palpable. Edges macerated. Non- blanching erythema periwound. No odor noted. Hyperpigmentation with surrounding darker skin tone without induration. Full thickness stage 4 sacral pressure injury with undermining . Base of wound has 60% slough, 40% oscar. Bone is palpable. Small amt brown exudate. Mild odor noted. Periwound darker skin tone noted. (L)7cm x (W)7.3cm x (D)2.5cm, undermining clockwise 8 -3 by 3.8cm @9o'clock. Necrotic area noted to R ischium.Periwound is intact.(L)0.4cm x (W)1.3cm. Stable dry eschar medial/lateral R foot (L)2.2cm x (W)1.5cm. periwound is intact. Black area without induration or fluctuance noted to distal/lateral R foot. (L) 1.5cm x (W)1.8cm. Stable dry eschar dorso/flexor R foot 0.4cm x (W)2.5cm. Unstageable pressure injury R heel. Base of wound is 100% necrotic . Periwound is boggy but no erythema noted (L)6.5cm x (W)7cm. Unstageable pressure injury L heel. Base of wound is 100% necrotic(L)1.5cm x (W) 2.5cm with surrounding pink epithelial bordered by hyperpigmentation(L)4cm x (W) 4.4cm. Reducible LIH Tx.Plan: Cleanse Sacral wound with Dakin's 0.125% mike. Loosely pack with Dakin's moistened kerlix. Apply Moisture Barrier Paste periwound. Cover with Optifoam drsg Twice Daily and prn. Cleanse R elbow with Dakin's 0.125% mike. Loosely pack with dakin's moist Kerlix gauze. Apply Moisture Barrier paste periwound.Cover with Optifoam drsg. Twice Daily and prn. Apply Betadine to R and L heels. Cover with Optifoam drsg. Change every 3 days and prn. Apply Betadine to necrotic areas Lateral R foot and dorso /flexor R foot. Cover each wound with Optifoam drsg every 3 days and prn. Apply Moisture Barrier paste to R ischium. Cover with Optifoam drsg. Change every 3 days and prn. Air Fluidized mattress. Reposition at least every 2hours or as tolerated. Off-load heels with pillow. Elevate R and L elbows with pillow. (4) Sepsis Assessment & Plan: leukocytosis tachypnea improved CXR noted labs noted respiratory decline trach needs nutrition LIH reducible cont abx IV fluids feeds and nutritional support will monitor LIH will follow with recs (5) Respiratory failure (6) Left elbow contusion Sher Keene Jan 10, 2019 14:26
--- NOTE | 2019-01-10 15:05 | Pulmonology Progress Note ---
Assessment/Plan Assessment/Plan 1. Acute on chronic respiratory failure. 2. 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 3. Cachexia and malnutrition. 4. Atherosclerotic aortic and cardiac disease. 5. History of hypertension, now hypotensive. 6. Urinary tract infection. 7. Diastolic heart failure with edema 8. Glaucoma. 9. Prostate hypertrophy. 10. Anemia. sat ok disc w RN WBC 17k; no signs of infection dc plan to subacute when bed available Subjective ROS Limited/Unobtainable: Yes Allergies: Coded Allergies: DORZOLAMIDE (Unverified Allergy, Unknown, 12/23/18) LISINOPRIL (Unverified Allergy, Unknown, 12/23/18) TIMOLOL (Unverified Allergy, Unknown, 12/23/18) TIOTROPIUM (Unverified Allergy, Unknown, 12/23/18) Objective Last 24 Hour Vital Signs Date Time Temp Pulse Resp B/P (MAP) Pulse Ox O2 Delivery O2 Flow Rate FiO2 01/10/19 14:15 65 115/75 01/10/19 13:22 72 12 21 01/10/19 12:00 98.8 73 16 115/75 (88) 97 01/10/19 12:00 21 01/10/19 12:00 Mechanical Ventilator 01/10/19 12:00 65 01/10/19 09:30 71 11 21 01/10/19 08:00 98.0 68 16 114/53 (73) 98 01/10/19 08:00 21 01/10/19 08:00 Mechanical Ventilator 01/10/19 08:00 69 01/10/19 07:26 71 11 100 Mechanical Ventilator 21 85 10 21 01/10/19 05:27 72 11 21 01/10/19 04:00 98.4 73 13 111/62 (78) 95 01/10/19 04:00 21 01/10/19 04:00 Mechanical Ventilator 01/10/19 03:25 66 01/10/19 03:22 71 10 100 Mechanical Ventilator 21 72 10 21 01/10/19 01:04 64 10 21 01/10/19 00:00 Mechanical Ventilator 01/10/19 00:00 21 01/10/19 00:00 98.5 59 10 108/51 (70) 96 01/09/19 23:36 68 10 100 Mechanical Ventilator 21 68 10 21 01/09/19 23:32 62 01/09/19 20:49 62 10 21 01/09/19 20:00 Mechanical Ventilator 01/09/19 20:00 21 01/09/19 20:00 98.4 62 12 110/47 (68) 98 01/09/19 19:04 61 01/09/19 19:01 65 10 100 Mechanical Ventilator 21 62 10 21 01/09/19 17:20 64 10 21 01/09/19 16:00 Mechanical Ventilator 01/09/19 16:00 59 01/09/19 16:00 98.8 67 14 122/48 (72) 100 01/09/19 16:00 21 01/09/19 15:12 62 10 100 Mechanical Ventilator 40.0 21 64 10 21 Intake and Output 01/09/19 01/10/19 18:59 06:59 Intake Total 940 ml 690 ml Output Total 1300 ml 400 ml Balance -360 ml 290 ml Free Water 400 ml 150 ml Tube Feeding 540 ml 540 ml Output Urine Total 1300 ml 400 ml # Bowel Movements 1 Objective trach/vent General Appearance: no acute distress HEENT: atraumatic Respiratory/Chest: lungs clear, decreased breath sounds Cardiovascular: normal rate Laboratory Tests 01/10/19 09:15: White Blood Count 17.4H, Red Blood Count 2.83L, Hemoglobin 8.3L, Hematocrit 26.5L, Mean Corpuscular Volume 93, Mean Corpuscular Hemoglobin 29.2, Mean Corpuscular Hemoglobin Concent 31.2L, Red Cell Distribution Width 15.1H, Platelet Count 194, Mean Platelet Volume 8.8, Neutrophils (%) (Auto) , Lymphocytes (%) (Auto) , Monocytes (%) (Auto) , Eosinophils (%) (Auto) , Basophils (%) (Auto) , Differential Total Cells Counted 100, Neutrophils % ( Manual) 88H, Lymphocytes % (Manual) 6L, Monocytes % (Manual) 6, Eosinophils % ( Manual) 0, Basophils % (Manual) 0, Band Neutrophils 0, Platelet Estimate Adequate, Platelet Morphology Normal, Anisocytosis 1+ Current Medications Medications (Trade) Dose Ordered Sig/Aktie Route PRN Reason Start Time Stop Time Status Last Admin Dose Admin Acetaminophen (Tylenol) 650 mg Q6H PRN RECTAL Mild Pain (Pain Scale 1-3) 01/08/19 16:30 01/31/19 16:29 Bisacodyl (Dulcolax) 10 mg DAILYPRN PRN RECTAL Constipation 01/08/19 16:30 02/07/19 16:29 Dextrose (Dextrose 50%) 25 ml Q30M PRN IV Hypoglycemia 01/08/19 16:30 02/02/19 22:59 Dextrose (Dextrose 50%) 50 ml Q30M PRN IV Hypoglycemia 01/08/19 16:30 02/02/19 22:59 Diltiazem HCl (Cardizem) 60 mg EVERY 8 HOURS GT 01/08/19 22:00 01/31/19 21:59 01/10/19 14:15 Furosemide (Lasix) 20 mg DAILY GT 01/10/19 09:00 02/09/19 08:59 01/10/19 09:46 Heparin Sodium (Porcine) (Heparin 5000 units/ml) 5,000 units EVERY 12 HOURS SUBQ 01/08/19 21:00 01/27/19 20:59 01/10/19 09:48 Insulin Aspart (NovoLOG) EVERY 6 HOURS SUBQ 01/08/19 18:00 02/03/19 06:29 01/10/19 12:08 Lansoprazole (Prevacid) 30 mg DAILY GT 01/10/19 09:00 02/09/19 08:59 01/10/19 09:46 Prednisone (predniSONE) 20 mg Q24H GT 01/09/19 18:00 02/08/19 17:59 01/09/19 17:42 Sodium Hypochlorite (Dakin's Quarter Strength) 1 applic DAILY TOPIC 01/09/19 09:00 02/03/19 08:59 01/10/19 09:49 Tamsulosin HCl (Flomax) 0.4 mg BEDTIME ORAL 01/08/19 21:00 01/28/19 20:59 01/09/19 20:36 Eliseo Pena MD Jan 10, 2019 15:05
[2019-01-10 16:00] VITALS: BP 119/58
[2019-01-10 20:00] VITALS: BP 131/58
[2019-01-10] MEDS: Tamsulosin 0.4mg cap ORAL SCH (20:31)
--- NOTE | 2019-01-10 23:10 | General Progress Note ---
Assessment/Plan Assessment/Plan: Assessment - Resp failure, s/p trach - dysphagia, s/p PEG - COPD - CHF - CAD - GERD - BPH - Anemia - multifactorial Recommendations - pulmonary toilet - Continue TF - follow CBC - elevate HOB Subjective Allergies: Coded Allergies: DORZOLAMIDE (Unverified Allergy, Unknown, 12/23/18) LISINOPRIL (Unverified Allergy, Unknown, 12/23/18) TIMOLOL (Unverified Allergy, Unknown, 12/23/18) TIOTROPIUM (Unverified Allergy, Unknown, 12/23/18) Subjective above noted tolerating TF Objective Last 24 Hour Vital Signs Date Time Temp Pulse Resp B/P (MAP) Pulse Ox O2 Delivery O2 Flow Rate FiO2 01/10/19 21:14 72 10 21 01/10/19 20:02 63 01/10/19 20:00 Mechanical Ventilator 01/10/19 20:00 97.9 73 12 131/58 (82) 96 01/10/19 20:00 21 01/10/19 18:58 69 11 21 01/10/19 17:51 75 10 21 01/10/19 17:02 75 10 21 01/10/19 16:00 98.3 73 12 119/58 (78) 99 01/10/19 16:00 21 01/10/19 16:00 69 01/10/19 16:00 Mechanical Ventilator 01/10/19 15:00 75 12 21 01/10/19 14:15 65 115/75 01/10/19 13:22 72 12 21 01/10/19 12:00 98.8 73 16 115/75 (88) 97 01/10/19 12:00 21 01/10/19 12:00 Mechanical Ventilator 01/10/19 12:00 65 01/10/19 09:30 71 11 21 01/10/19 08:00 98.0 68 16 114/53 (73) 98 01/10/19 08:00 21 01/10/19 08:00 Mechanical Ventilator 01/10/19 08:00 69 01/10/19 07:26 71 11 100 Mechanical Ventilator 21 85 10 21 01/10/19 05:27 72 11 21 01/10/19 04:00 98.4 73 13 111/62 (78) 95 01/10/19 04:00 21 01/10/19 04:00 Mechanical Ventilator 01/10/19 03:25 66 01/10/19 03:22 71 10 100 Mechanical Ventilator 21 72 10 21 01/10/19 01:04 64 10 21 01/10/19 00:00 Mechanical Ventilator 01/10/19 00:00 21 01/10/19 00:00 98.5 59 10 108/51 (70) 96 01/09/19 23:36 68 10 100 Mechanical Ventilator 21 68 10 21 01/09/19 23:32 62 Intake and Output 01/09/19 01/10/19 19:00 07:00 Intake Total 840 ml 690 ml Output Total 700 ml 400 ml Balance 140 ml 290 ml Free Water 300 ml 150 ml Tube Feeding 540 ml 540 ml Output Urine Total 700 ml 400 ml # Bowel Movements 1 Laboratory Tests 01/10/19 09:15: White Blood Count 17.4H, Red Blood Count 2.83L, Hemoglobin 8.3L, Hematocrit 26.5L, Mean Corpuscular Volume 93, Mean Corpuscular Hemoglobin 29.2, Mean Corpuscular Hemoglobin Concent 31.2L, Red Cell Distribution Width 15.1H, Platelet Count 194, Mean Platelet Volume 8.8, Neutrophils (%) (Auto) , Lymphocytes (%) (Auto) , Monocytes (%) (Auto) , Eosinophils (%) (Auto) , Basophils (%) (Auto) , Differential Total Cells Counted 100, Neutrophils % ( Manual) 88H, Lymphocytes % (Manual) 6L, Monocytes % (Manual) 6, Eosinophils % ( Manual) 0, Basophils % (Manual) 0, Band Neutrophils 0, Platelet Estimate Adequate, Platelet Morphology Normal, Anisocytosis 1+ Height (Feet): 5 Height (Inches): 7.00 Weight (Pounds): 137 Objective Thin AA man NCAT Neck (+) trach Chest: Coarse BS CV: RR abd: Soft, (+) PEG no edema Barry Bermeo MD Jan 10, 2019 23:10
[2019-01-11] VITALS: BP 125/58
--- NOTE | 2019-01-11 00:30 | Progress Note ---
DATE: 01/10/2019 CARDIOLOGY PROGRESS NOTE SUBJECTIVE: The patient remains on ventilator support via trach. OBJECTIVE: VITAL SIGNS: Blood pressure 115/75, heart rate 73, respirations 16. Monitor sinus. LUNGS: Bilateral breath sounds. Few rhonchi. HEART: Regular rhythm and rate. Normal S1, S2 with no new murmur. ABDOMEN: Soft. EXTREMITIES: Trace edema. LABORATORY DATA: White count 17, hemoglobin 8.3. IMPRESSION: 1. Recovered shock. 2. Respiratory failure, status post trach. 3. Moderate protein-calorie malnutrition. 4. Acute on chronic respiratory acidosis. 5. Secondary metabolic alkalosis. 6. Chronic diastolic congestive heart failure. PLAN: 1. Maintain current cardiovascular regimen. 2. Monitor volume status and cardiorenal parameters. 3. Diuresis as needed. 4. DVT prophylaxis. Cody Melendez M.D. DR: KUSHAL JOB#: [id number] CC:
[2019-01-11 04:00] VITALS: BP 107/52
[2019-01-11] MEDS: dilTIAZem HCl 60mg tab GT SCH (05:34)
[2019-01-11] MEDS: NovoLOG Insulin Flexpen SUBQ SCH ×2 (05:35→12:09)
[2019-01-11 08:00] VITALS: BP 146/53
[2019-01-11] MEDS: Heparin 5000 units/ml inj SUBQ SCH (08:30)
[2019-01-11] MEDS: Dakin's 0.125% Soln (Quarter Strength) 16oz TOPIC SCH (08:30)
[2019-01-11 12:00] VITALS: BP 117/64
--- NOTE | 2019-01-11 12:49 | Pulmonology Progress Note ---
Assessment/Plan Assessment/Plan 1. Acute on chronic respiratory failure. 2. 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 3. Cachexia and malnutrition. 4. Atherosclerotic aortic and cardiac disease. 5. History of hypertension, now hypotensive. 6. Urinary tract infection. 7. Diastolic heart failure with edema 8. Glaucoma. 9. Prostate hypertrophy. 10. Anemia. DC to [facility] today disc w RN Subjective ROS Limited/Unobtainable: Yes Allergies: Coded Allergies: DORZOLAMIDE (Unverified Allergy, Unknown, 12/23/18) LISINOPRIL (Unverified Allergy, Unknown, 12/23/18) TIMOLOL (Unverified Allergy, Unknown, 12/23/18) TIOTROPIUM (Unverified Allergy, Unknown, 12/23/18) Objective Last 24 Hour Vital Signs Date Time Temp Pulse Resp B/P (MAP) Pulse Ox O2 Delivery O2 Flow Rate FiO2 01/11/19 12:00 97.6 69 15 117/64 (81) 98 01/11/19 12:00 21 01/11/19 12:00 Mechanical Ventilator 01/11/19 11:26 75 01/11/19 11:20 78 16 21 01/11/19 11:08 78 21 21 21 01/11/19 09:11 58 10 21 01/11/19 08:00 97.9 65 14 146/53 (84) 100 01/11/19 08:00 Mechanical Ventilator 01/11/19 08:00 21 01/11/19 07:48 67 01/11/19 07:41 58 10 21 01/11/19 05:34 74 114/62 01/11/19 04:35 56 10 21 01/11/19 04:00 21 01/11/19 04:00 97.2 83 12 107/52 (70) 99 01/11/19 04:00 Mechanical Ventilator 01/11/19 03:24 69 01/11/19 03:10 55 10 21 01/11/19 01:15 87 11 21 01/11/19 00:00 21 01/11/19 00:00 Mechanical Ventilator 01/11/19 00:00 98.8 60 10 125/58 (80) 100 01/10/19 23:45 57 01/10/19 23:05 81 11 21 01/10/19 21:14 72 10 21 01/10/19 20:02 63 01/10/19 20:00 Mechanical Ventilator 01/10/19 20:00 97.9 73 12 131/58 (82) 96 01/10/19 20:00 21 01/10/19 18:58 69 11 21 01/10/19 17:51 75 10 21 01/10/19 17:02 75 10 21 01/10/19 16:00 98.3 73 12 119/58 (78) 99 01/10/19 16:00 21 01/10/19 16:00 69 01/10/19 16:00 Mechanical Ventilator 01/10/19 15:00 75 12 21 01/10/19 14:15 65 115/75 01/10/19 13:22 72 12 21 Intake and Output 01/10/19 01/11/19 18:59 06:59 Intake Total 840 ml 740 ml Output Total 500 ml 500 ml Balance 340 ml 240 ml Free Water 300 ml 200 ml Tube Feeding 540 ml 540 ml Output Urine Total 500 ml 500 ml # Bowel Movements 1 2 Objective trach/vent General Appearance: no acute distress HEENT: atraumatic Respiratory/Chest: lungs clear, decreased breath sounds Cardiovascular: normal rate Current Medications Medications (Trade) Dose Ordered Sig/Katie Route PRN Reason Start Time Stop Time Status Last Admin Dose Admin Acetaminophen (Tylenol) 650 mg Q6H PRN RECTAL Mild Pain (Pain Scale 1-3) 01/08/19 16:30 01/31/19 16:29 Bisacodyl (Dulcolax) 10 mg DAILYPRN PRN RECTAL Constipation 01/08/19 16:30 02/07/19 16:29 Dextrose (Dextrose 50%) 25 ml Q30M PRN IV Hypoglycemia 01/08/19 16:30 02/02/19 22:59 Dextrose (Dextrose 50%) 50 ml Q30M PRN IV Hypoglycemia 01/08/19 16:30 02/02/19 22:59 Diltiazem HCl (Cardizem) 60 mg EVERY 8 HOURS GT 01/08/19 22:00 01/31/19 21:59 01/11/19 05:34 Furosemide (Lasix) 20 mg DAILY GT 01/10/19 09:00 02/09/19 08:59 01/11/19 08:30 Heparin Sodium (Porcine) (Heparin 5000 units/ml) 5,000 units EVERY 12 HOURS SUBQ 12/1/19 21:00 01/27/19 20:59 01/11/19 08:30 Insulin Aspart (NovoLOG) EVERY 6 HOURS SUBQ 01/08/19 18:00 02/03/19 06:29 01/11/19 12:09 Lansoprazole (Prevacid) 30 mg DAILY GT 01/10/19 09:00 02/09/19 08:59 01/11/19 08:30 Prednisone (predniSONE) 20 mg Q24H GT 01/09/19 18:00 02/08/19 17:59 01/10/19 17:28 Sodium Hypochlorite (Dakin's Quarter Strength) 1 applic DAILY TOPIC 01/09/19 09:00 02/03/19 08:59 01/11/19 08:30 Tamsulosin HCl (Flomax) 0.4 mg BEDTIME ORAL 01/08/19 21:00 01/28/19 20:59 01/10/19 20:31 Eliseo Pena MD Jan 11, 2019 12:49
[2019-01-11] MEDS ORDERED: NS 275ml ONE (13:43)
--- NOTE | 2019-01-11 15:23 | Urology Progress Note ---
Assessment/Plan Assessment/Plan: 1. Urinary retention. 2. Benign prostatic hypertrophy. 3. Rule out neurogenic bladder. 4. Scrotal enlargement, probable inguinal hernia versus hydrocele. 5. Hematuria. 6. Pyuria. 7. Proteinuria. maintain kline hand irrigate PRN on flomax voiding trial later abx PRN cysto at some point, likely as outpt Subjective Allergies: Coded Allergies: DORZOLAMIDE (Unverified Allergy, Unknown, 12/23/18) LISINOPRIL (Unverified Allergy, Unknown, 12/23/18) TIMOLOL (Unverified Allergy, Unknown, 12/23/18) TIOTROPIUM (Unverified Allergy, Unknown, 12/23/18) Subjective all noted, non-verbal, seen earlier, going to SNF Objective Last 24 Hour Vital Signs Date Time Temp Pulse Resp B/P (MAP) Pulse Ox O2 Delivery O2 Flow Rate FiO2 01/11/19 13:16 75 10 21 01/11/19 12:00 97.6 69 15 117/64 (81) 98 01/11/19 12:00 21 01/11/19 12:00 Mechanical Ventilator 01/11/19 11:26 75 01/11/19 11:20 78 16 21 01/11/19 11:08 78 21 21 21 01/11/19 09:11 58 10 21 01/11/19 08:00 97.9 65 14 146/53 (84) 100 01/11/19 08:00 Mechanical Ventilator 01/11/19 08:00 21 01/11/19 07:48 67 01/11/19 07:41 58 10 21 01/11/19 05:34 74 114/62 01/11/19 04:35 56 10 21 01/11/19 04:00 21 01/11/19 04:00 97.2 83 12 107/52 (70) 99 01/11/19 04:00 Mechanical Ventilator 01/11/19 03:24 69 01/11/19 03:10 55 10 21 01/11/19 01:15 87 11 21 01/11/19 00:00 21 01/11/19 00:00 Mechanical Ventilator 01/11/19 00:00 98.8 60 10 125/58 (80) 100 01/10/19 23:45 57 01/10/19 23:05 81 11 21 01/10/19 21:14 72 10 21 12/3/19 20:02 63 01/10/19 20:00 Mechanical Ventilator 01/10/19 20:00 97.9 73 12 131/58 (82) 96 01/10/19 20:00 21 01/10/19 18:58 69 11 21 01/10/19 17:51 75 10 21 01/10/19 17:02 75 10 21 01/10/19 16:00 98.3 73 12 119/58 (78) 99 01/10/19 16:00 21 01/10/19 16:00 69 01/10/19 16:00 Mechanical Ventilator Intake and Output 01/10/19 01/11/19 18:59 06:59 Intake Total 840 ml 740 ml Output Total 500 ml 500 ml Balance 340 ml 240 ml Free Water 300 ml 200 ml Tube Feeding 540 ml 540 ml Output Urine Total 500 ml 500 ml # Bowel Movements 1 2 Microbiology Date/Time Source Procedure Growth Status 12/23/18 13:25 Blood Blood Culture - Final NO GROWTH AFTER 5 DAYS Complete 01/03/19 16:22 Sputum Expectorated Gram Stain - Final Complete 01/03/19 16:22 Sputum Culture - Final Aruna Tropicalis Usual Respiratory Jeniffer Complete 01/03/19 03:30 Indwelling Cath Urine Culture - Final NO GROWTH AFTER 48 HOURS Complete 12/25/18 05:00 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 Complete Height (Feet): 5 Height (Inches): 7.00 Weight (Pounds): 135 Objective exam stable scrotum appears smaller Bubba Felix MD Jan 11, 2019 15:23
--- NOTE | 2019-01-11 18:17 | Surgery Progress Note ---
Surgery Progress Note Subjective Procedure Performed Tracheostomy Additional Comments late entry as patient seen earlier doing well comfortable d/c planning for today okay to d/c Objective Last 24 Hour Vital Signs Date Time Temp Pulse Resp B/P (MAP) Pulse Ox O2 Delivery O2 Flow Rate FiO2 01/11/19 13:16 75 10 21 01/11/19 12:00 97.6 69 15 117/64 (81) 98 01/11/19 12:00 21 01/11/19 12:00 Mechanical Ventilator 01/11/19 11:26 75 01/11/19 11:20 78 16 21 01/11/19 11:08 78 21 21 21 01/11/19 09:11 58 10 21 01/11/19 08:00 97.9 65 14 146/53 (84) 100 01/11/19 08:00 Mechanical Ventilator 01/11/19 08:00 21 01/11/19 07:48 67 01/11/19 07:41 58 10 21 01/11/19 05:34 74 114/62 01/11/19 04:35 56 10 21 01/11/19 04:00 21 01/11/19 04:00 97.2 83 12 107/52 (70) 99 01/11/19 04:00 Mechanical Ventilator 01/11/19 03:24 69 01/11/19 03:10 55 10 21 01/11/19 01:15 87 11 21 01/11/19 00:00 21 01/11/19 00:00 Mechanical Ventilator 01/11/19 00:00 98.8 60 10 125/58 (80) 100 01/10/19 23:45 57 01/10/19 23:05 81 11 21 01/10/19 21:14 72 10 21 01/10/19 20:02 63 01/10/19 20:00 Mechanical Ventilator 01/10/19 20:00 97.9 73 12 131/58 (82) 96 01/10/19 20:00 21 01/10/19 18:58 69 11 21 I&O Intake and Output 01/10/19 01/11/19 18:59 06:59 Intake Total 840 ml 740 ml Output Total 500 ml 500 ml Balance 340 ml 240 ml Free Water 300 ml 200 ml Tube Feeding 540 ml 540 ml Output Urine Total 500 ml 500 ml # Bowel Movements 1 2 Plan Problems: (1) Failure to thrive in adult Assessment & Plan: DAILY ESTIMATED NEEDS: Needs based on Wound healing, Pulmonary, Underweight/ 49.5kg 30-40 kcals/kg 0328-9933 total kcals 1.25-1.8 g protein/kg 62-89 g total protein 25-30 mL/kg 7261-5464 total fluid mLs NUTRITION DIAGNOSIS: Increased kcal/prot needs R/T underweight status, wound healing, severe COPD per MD as evidenced by pt is 73% IBW w/ BMI of 17.0, admitted w/ advanced sacral and rt elbow wounds, unstageable BL heel wounds, pending eval, currently on BIPAP, NPO. CURRENT DIET:NPO PO DIET RECOMMENDATIONS: WHEN SAFE FOR ORAL DIET AND OFF BIPAP -> regular/ texture per LEGISLATIVE ASSISTANT ENTERAL NUTRITION RECOMMENDATIONS: CONSULT RD FOR TF REC IF INDICATED AND PART OF POC ADDITIONAL RECOMMENDATIONS: * Per SNF: HT=67", UI=760ipn (as of 12/21) -> rec calibrated bedscale wt, weekly wt monitoring * LEGISLATIVE ASSISTANT evaluation prior to oral diet * Ensure Enlive TID w/ meals w/ oral diet * Wound healing: when able for oral meds -> add MVI w/ min x 1, Vit C 500mg BID, ZnSO4 220mg QD x 10 days -> Gaetano 1pkt BID (2) Malnutrition (3) Decubitus skin ulcer Assessment & Plan: Pt presented on admission with multiple pressure injuries. 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 Base of wound has 95% slough. 5% viable. Bone is palpable. Edges macerated. Non- blanching erythema periwound. No odor noted. Hyperpigmentation with surrounding darker skin tone without induration. Full thickness stage 4 sacral pressure injury with undermining . Base of wound has 60% slough, 40% oscar. Bone is palpable. Small amt brown exudate. Mild odor noted. Periwound darker skin tone noted. (L)7cm x (W)7.3cm x (D)2.5cm, undermining clockwise 8 -3 by 3.8cm @9o'clock. Necrotic area noted to R ischium.Periwound is intact.(L)0.4cm x (W)1.3cm. Stable dry eschar medial/lateral R foot (L)2.2cm x (W)1.5cm. periwound is intact. Black area without induration or fluctuance noted to distal/lateral R foot. (L) 1.5cm x (W)1.8cm. Stable dry eschar dorso/flexor R foot 0.4cm x (W)2.5cm. Unstageable pressure injury R heel. Base of wound is 100% necrotic . Periwound is boggy but no erythema noted (L)6.5cm x (W)7cm. Unstageable pressure injury L heel. Base of wound is 100% necrotic(L)1.5cm x (W) 2.5cm with surrounding pink epithelial bordered by hyperpigmentation(L)4cm x (W) 4.4cm. Reducible LIH Tx.Plan: Cleanse Sacral wound with Dakin's 0.125% mike. Loosely pack with Dakin's moistened kerlix. Apply Moisture Barrier Paste periwound. Cover with Optifoam drsg Twice Daily and prn. Cleanse R elbow with Dakin's 0.125% mike. Loosely pack with dakin's moist Kerlix gauze. Apply Moisture Barrier paste periwound.Cover with Optifoam drsg. Twice Daily and prn. Apply Betadine to R and L heels. Cover with Optifoam drsg. Change every 3 days and prn. Apply Betadine to necrotic areas Lateral R foot and dorso /flexor R foot. Cover each wound with Optifoam drsg every 3 days and prn. Apply Moisture Barrier paste to R ischium. Cover with Optifoam drsg. Change every 3 days and prn. Air Fluidized mattress. Reposition at least every 2hours or as tolerated. Off-load heels with pillow. Elevate R and L elbows with pillow. (4) Sepsis Assessment & Plan: leukocytosis tachypnea improved CXR noted labs noted respiratory decline trach needs nutrition LIH reducible cont abx IV fluids feeds and nutritional support will monitor LIH will follow with recs (5) Respiratory failure (6) Left elbow contusion Sher Keene Jan 11, 2019 18:17
--- NOTE | 2019-01-11 23:10 | General Progress Note ---
Assessment/Plan Assessment/Plan: Assessment - Resp failure, s/p trach - dysphagia, s/p PEG - COPD - CHF - CAD - GERD - BPH - Anemia - multifactorial Recommendations - pulmonary toilet - Continue TF - follow CBC - elevate HOB - d/c planning Subjective Allergies: Coded Allergies: DORZOLAMIDE (Unverified Allergy, Unknown, 12/23/18) LISINOPRIL (Unverified Allergy, Unknown, 12/23/18) TIMOLOL (Unverified Allergy, Unknown, 12/23/18) TIOTROPIUM (Unverified Allergy, Unknown, 12/23/18) Subjective above noted tolerating TF no events overnight Objective Last 24 Hour Vital Signs Date Time Temp Pulse Resp B/P (MAP) Pulse Ox O2 Delivery O2 Flow Rate FiO2 01/11/19 13:16 75 10 21 01/11/19 12:00 97.6 69 15 117/64 (81) 98 01/11/19 12:00 21 01/11/19 12:00 Mechanical Ventilator 01/11/19 11:26 75 01/11/19 11:20 78 16 21 01/11/19 11:08 78 21 21 21 01/11/19 09:11 58 10 21 01/11/19 08:00 97.9 65 14 146/53 (84) 100 01/11/19 08:00 Mechanical Ventilator 01/11/19 08:00 21 01/11/19 07:48 67 01/11/19 07:41 58 10 21 01/11/19 05:34 74 114/62 01/11/19 04:35 56 10 21 01/11/19 04:00 21 01/11/19 04:00 97.2 83 12 107/52 (70) 99 01/11/19 04:00 Mechanical Ventilator 01/11/19 03:24 69 01/11/19 03:10 55 10 21 01/11/19 01:15 87 11 21 01/11/19 00:00 21 01/11/19 00:00 Mechanical Ventilator 01/11/19 00:00 98.8 60 10 125/58 (80) 100 01/10/19 23:45 57 Intake and Output 01/10/19 01/11/19 19:00 07:00 Intake Total 840 ml 740 ml Output Total 500 ml 500 ml Balance 340 ml 240 ml Free Water 300 ml 200 ml Tube Feeding 540 ml 540 ml Output Urine Total 500 ml 500 ml # Bowel Movements 1 2 Height (Feet): 5 Height (Inches): 7.00 Weight (Pounds): 135 Objective Thin AA man NCAT Neck (+) trach Chest: Coarse BS CV: RR abd: Soft, (+) PEG no edema Barry Bermeo MD Jan 11, 2019 23:10
--- NOTE | 2019-01-12 02:15 | Progress Note ---
DATE: 01/11/2019 CARDIOLOGY PROGRESS NOTE SUBJECTIVE: Status post trach. No respiratory distress. OBJECTIVE: VITAL SIGNS: Blood pressure 117/64, pulse 69, and respirations 15. Sinus rhythm. Decreased secretions. LUNGS: Bilateral breath sounds. Few rhonchi. No wheezing. HEART: Regular rhythm and rate. Normal S1, S2. No new murmur. ABDOMEN: Soft. EXTREMITIES: No edema. LABORATORY DATA: Labs from 01/10/2019 reviewed. IMPRESSION AND PLAN: 1. Stable cardiovascular parameters at subacute facility. 2. Discharge cardiovascular regimen reviewed and reconciled for discharge. 3. On low-dose diuretic and will likely need adjustment of that in the future based on clinical parameters. Cody Melendez M.D. DR: STACI JOB#: [id number] CC:
--- NOTE | 2019-01-12 02:31 | Progress Note ---
DATE: 01/06/2019 CARDIOLOGY PROGRESS NOTE Late entry for 01/06/2019. SUBJECTIVE: The patient is scheduled for PEG today. His trach was placed several days ago with no complications. OBJECTIVE: VITAL SIGNS: Blood pressure parameters off pressors 92 to 110 systolic. Monitor, sinus rhythm. HEENT: Thin secretions. LUNGS: Bilateral breath sounds. HEART: Regular rhythm and rate. Normal S1, S2. ABDOMEN: Soft. EXTREMITIES: No edema. LABORATORY DATA: White count 18 and hemoglobin 8.1. Albumin 1.9. Potassium 3.8, bicarb 40, BUN 17, and creatinine 0.4. IMPRESSION: 1. Respiratory failure with trach. 2. Recovering shock due to sepsis and hypovolemia. 3. Dysphagia requiring G-tube. 4. Anemia, multifactorial. 5. Severe protein-calorie malnutrition. PLAN: 1. Proceed with percutaneous endoscopic gastrostomy. 2. Minimally increased perioperative cardiovascular risk. 3. Monitor hemoglobin and transfuse for further drop. 4. Continue iron replacement. 5. Volume support as needed. 6. Avoid pressors. 7. Respiratory hygiene. Cody Melendez M.D. DR: STACI JOB#: [id number] CC:
--- NOTE | 2019-01-12 02:32 | Progress Note ---
DATE: 01/07/2019 Late entry for 01/07/2019. SUBJECTIVE: The patient is status post endoscopy and gastrostomy tube placement yesterday. No complications noted. The patient remains on ventilator support via trach. Blood pressure parameters have improved. OBJECTIVE: VITAL SIGNS: Blood pressure now 114/37, pulse 58, and respirations 11. Monitored rhythm sinus. LUNGS: Clear with few rhonchi. Trach site, no bleeding. CARDIAC: Regular. No new murmur. ABDOMEN: Soft. G-tube site intact. Slight distention. EXTREMITIES: No edema. LABORATORY DATA: White count 14.6 and hemoglobin 8.4. Potassium 3.2, BUN 14, and creatinine 0.4 . IMPRESSION: Improved and stabilizing to subacute transfer. PLAN: 1. Replace potassium. 2. Initiate feedings per gastrointestinal attending. 3. Maintain adequate volume support. 4. Respiratory hygiene. 5. DVT prophylaxis. 6. No additional cardiovascular intervention planned. 7. Need to monitor acid-base parameters closely and adjust ventilator accordingly in view of the respiratory acidosis and metabolic alkalosis. Cody Melendez M.D. DR: STACI JOB#: [id number] CC:
--- NOTE | 2019-01-12 09:24 | Discharge Summary ---
Discharge Summary Discharge Summary _ DATE OF ADMISSION: 2018 DATE OF DISCHARGE: 01/11/2019 DISCHARGED BY: Dr. Pena REASON FOR ADMISSION: 88 years old male, resident of correction facility, with past medical history of end-stage lung disease with recent exacerbation, hypoxic and hypercapnic respiratory failure, recently treated with steroids, on BiPAP at night, diastolic heart failure, coronary artery disease, hypertension, lower GI bleeding, osteoarthritis, benign prostatic hypertrophy, GERD, depression, malnutrition, stage IV sacral decubitus ulcer, chronic anemia, was transferred for evaluation due to altered mental status. Patient was hypoxic, hypothermic, and hypotensive, with systolic blood pressure being in the 80s. ABG revealed PCO2 of 137. No leukocytosis : WBC 10.8 , hemoglobin 9 ,hematocrit 28.5 ,stable platelet count . CO2 more than 45 . BUN 18 , creatinine 0.5, stable electrolytes. Lactic acid 0.8. Glucose 196. Troponin negative. pro BNP 390. EKG revealed sinus rhythm , no acute ischemic changes. Albumin 2.1. Urinalysis revealed +3 leukocyte esterase , pyuria and many bacteria , +2 protein. Chest x-ray demonstrated evidence of COPD In emergency department patient was placed on the BiPAP . ABG was repeated and showed minimal improvement. Central line was placed in anticipation for pressors. Patient started on warming measures. Patient received steroid and nebulizing treatment with bronchodilator. Septic work-up initiated . Patient received a fluid bolus , pancultured and started on empiric antibiotics Patient subsequently was admitted to ICU for further management. CONSULTANTS: restaurant management internship GI specialist Dr. Elvie Keene urologist [facility] COURSE: Patient admitted to ICU on the BiPAP. Patient was continued on warming measures with Radha Hugger. Patient started on pressor to keep mean arterial blood pressure above 65. Patient started on the IV fluids, steroids and empiric antibiotics. Respiratory treatment with bronchodilator provided via N. Patient was able shortly to be weaned from pressor. Overall prognosis remained guarded. DVT and GI prophylaxis provided. Echocardiogram revealed preserved ejection fraction of 60% with no evidence of left ventricular hypertrophy. No evidence of pericardial effusion. No evidence of wall motion abnormality. Right ventricular systolic pressure of 15. Right upper extremity venous duplex revealed no evidence of DVT. Patient was followed-up with chest x-ray. Steroids were gradually tapered. Patient initially was on a BiPAP . Hop Grower followed . Hemodynamic status was closely monitored, and as patient clinically improved, blood pressure stabilized. Acid-base parameters were closely monitored. All cardiac medications initially were on hold. Blood cultures were negative. Urine culture, initial and repeated, were negative, despite positive urinalysis. Sputum culture revealed Aruna. Patient had leukocytosis, likely due to steroids . No fevers. Patient with end-stage COPD and was unable to be weaned from the BiPAP. DPOA was contacted regarding further goals of care; patient required intubation or tracheostomy versus comfort measures .. Family decided to go ahead with G-tube and tracheostomy placement. Patient subsequently undergone tracheostomy placement on 01/03. Tracheostomy care provided. Bronchodilator therapy with Xopenex continued. Patient tolerated e tracheostomy tube well . Pulse oximetry remained stable. Patient failed bedside swallow evaluation . Speech therapist recommended to keep patient n.p.o. and initiate nonoral feeding. NG tube was inserted and patient started on the tube feeding with aspiration precautions. Per nutritional assessment, patient was at high risk for malnutrition. Patient subsequently undergone EGD with biopsy and gastrostomy tube placement on . Patient tolerated procedure well. Patient started on tube feeding with feeding formula , goal rate and protein supplements as recommended by registered dental assistant rda. Strict aspiration/reflux precaution maintained. Gastrostomy tube site care provided. GI prophylaxis provided. Magnesium was replaced. Patient had episodes of atrial fibrillation. Heart rate was controlled with diltiazem and low dose of beta yesika. Hemodynamic status was closely monitored . Blood pressure remained stable. Patient started on maintenance dose of Lasix. Volumes and cardiorenal paramerts were closely monitored. Flomax continued. Blood sugar was managed with sliding scale of insulin. Bowel regimen instituted. Supportive care provided. Hemoglobin and hematocrit were closely monitored with goal to keep hemoglobin above 7. Hemoglobin and hematocrit remained at the baseline . Prior to discharge hemoglobin 8.3 , hematocrit 26.5. Patient presented with multiply pressure injuries on admission, including sacral stage IV pressure ulcer. Wound care provided per surgeon recommendation . Continue wound care at the facility. FINAL DIAGNOSES: Sepsis with shock-resolved Possible UTI Acute on chronic hypercapnic hypoxemic respiratory failure Severe COPD with end-stage lung disease exacerbation Status post tracheostomy placement 01/03 Anemia of chronic disease, multifactorial Hypothermia Metabolic and toxic encephalopathy Acute on chronic diastolic heart failure Paroxysmal atrial fibrillation Degenerated mitral valve disease with regurgitation Acute myocardial ischemia Atherosclerotic aortic and cardiac disease Dysphagia Status post PEG placement 01/06 History of hypertension , currently hypotensive. Shock -recovered Failure to thrive Protein calorie malnutrition Cachexia Sacral decubitus ulcer stage IV , present on admission BPH Glaucoma DISCHARGE MEDICATIONS: List of medication was sent to accepting facility DISCHARGE INSTRUCTIONS: Patient was discharged to the correction facility. Follow up with medical doctor at the facility. I have been assigned to dictate discharge summary for this account. I was not involved in the patient's management. Simi Mcneal NP Jan 12, 2019 09:24
== END 2019-01-11 13:44 | DRG 4 ==
LOC: EDBD 15:18 → EMR 15:39 → EDBEDREQ 15:50 → ICU 16:50 → EDBEDREQ 18:00 → 2W 12-26 17:50 → ICU 01-01 11:28 → 2W 01-08 16:12
PROC: 05HM33Z Insertion of Infusion Device into Right Internal Jugular Vein, Percutaneous Approach (ICD-10-PCS; principal; 2018-12-23)
PROC: 5A1955Z Respiratory Ventilation, Greater than 96 Consecutive Hours (ICD-10-PCS; 2019-01-03)
PROC: 0B110F4 Bypass Trachea to Cutaneous with Tracheostomy Device, Open Approach (ICD-10-PCS; 2019-01-03)
PROC: 0DH63UZ Insertion of Feeding Device into Stomach, Percutaneous Approach (ICD-10-PCS; 2019-01-06)
PROC: 0DD78ZX Extraction of Stomach, Pylorus, Via Natural or Artificial Opening Endoscopic, Diagnostic (ICD-10-PCS; 2019-01-06)
DX: A41.9 Sepsis, unspecified organism (principal); L89.154 Pressure ulcer of sacral region, stage 4; L89.014 Pressure ulcer of right elbow, stage 4; R65.21 Severe sepsis with septic shock; J96.22 Acute and chronic respiratory failure with hypercapnia; J96.21 Acute and chronic respiratory failure with hypoxia; E43 Unspecified severe protein-calorie malnutrition; G92 Toxic encephalopathy; J18.9 Pneumonia, unspecified organism; J44.1 Chronic obstructive pulmonary disease with (acute) exacerbation; N39.0 Urinary tract infection, site not specified; R64 Cachexia; E87.0 Hyperosmolality and hypernatremia; E87.3 Alkalosis; J44.0 Chronic obstructive pulmonary disease with (acute) lower respiratory infection; F03.90 Unspecified dementia, unspecified severity, without behavioral disturbance, psychotic disturbance, mood disturbance, and anxiety; R68.0 Hypothermia, not associated with low environmental temperature; I25.10 Atherosclerotic heart disease of native coronary artery without angina pectoris; N40.1 Benign prostatic hyperplasia with lower urinary tract symptoms; R33.8 Other retention of urine; Z68.21 Body mass index [BMI] 21.0-21.9, adult; H40.9 Unspecified glaucoma; E86.0 Dehydration; R00.1 Bradycardia, unspecified; R62.7 Adult failure to thrive; R13.10 Dysphagia, unspecified; R31.9 Hematuria, unspecified; K40.90 Unilateral inguinal hernia, without obstruction or gangrene, not specified as recurrent; N43.3 Hydrocele, unspecified; I48.0 Paroxysmal atrial fibrillation; Y95 Nosocomial condition; I34.0 Nonrheumatic mitral (valve) insufficiency; I51.3 Intracardiac thrombosis, not elsewhere classified; L89.620 Pressure ulcer of left heel, unstageable; L89.610 Pressure ulcer of right heel, unstageable
CPT/HCPCS: 36415; 36600; 71045; 74018; 80048; 80053; 81001; 81003; 82533; 82550; 82553; 82728; 82803; 82962; 83540; 83550; 83605; 83735; 83880; 84100; 84153; 84154; 84443; 84484; 85007; 85025; 85610; 85730; 87040; 87070; 87081; 87086; 87205; 93005; 93306; 93931; 93970; 94002; 94003; 94150; 94640; 94660; 94664; 96361; 96365; 96367; 96375; 99291; 99292; J1815; J7030; J7620; J8499

== ENCOUNTER 2019-03-01 02:02 | Inpatient (IN) | payer OTHER ==
[~2019-03-01] VITALS: Ht 170.2 cm; Wt 69.5 kg
[2019-03-01] VITALS (11 sets, daily range): BP systolic 55–100; BP diastolic 25–64
[~2019-03-01 02:02] MED LIST changes: +ACETAMINOPHEN325 M1 ORAL; +ACETAMINOPHEN500 M5 ORAL; +ADVAIR HFA 115-12 GM INH; +AMLODIPINE BESYL5 MG ORAL; +CARDIZEM30 M1 GT; +CATAPRES0.1 MG ORAL; +DOCUSATE SODIU100 MG GT; +DOCUSATE SODIU100 MG ORAL; +DULCOLAX10 MG RC; +DUONEB 0.5-3(2.53 ML HHN; +FERROUS SULFAT325 MG GT; +FERROUS SULFAT325 MG ORAL; +FLEET ENEMA133 ML RECTAL; +FLOMAX0.4 MG GT; +FLOMAX0.4 MG ORAL; +FUROSEMIDE20 M1 ORAL; +FUROSEMIDE40 MG GT; +FUROSEMIDE40 MG ORAL; +GUAIFENESIN-DM 15 ML PO; +IPRATROPIU0.2 MG/1 M HHN; +LANSOPRAZOLE15 MG GT; +LOSARTAN POTAS100 MG ORAL; +LOSARTAN-HCTZ1 EACH ORAL; +MIRTAZAPINE15 M3 ORAL; +MULTIVITAMINS1 EAC2 GT; +NORCO 5-325 TA1 EACH ORAL; +TRUSOPT10 ML BOTH EYES; +VANCOMYCIN750 MG IVPB; +VITAMIN C500 M1 GT; +ZOSYN 3.373.375 GM/1 IVPB
[2019-03-01] MEDS ORDERED: Vancomycin 1 GM in NS 275 ML IV ONE (02:30)
--- NOTE | 2019-03-01 02:30 | NUR ---
ED Nurse Note: Patient brought in by ambulance d/t ALOC per [facility] staff patient is usually AAO x 2. Patient not alert or oriented and unable to response to verbal or painful stimuli. Patient placed on hall monitor, RT at bedside. Mcpherson cath in place prior to arrival 16F patent and draining. Unable to establish intravenous line, ERMD notified and aware.
--- NOTE | 2019-03-01 03:10 | NUR ---
ED Nurse Note: Unable to establish IV line x 3 nurses d/t patient edematous, ERMD aware.
--- NOTE | 2019-03-01 03:36 | Emergency Room Report ---
History of Present Illness General Chief Complaint: Altered Level of Consciousness Present Illness HPI 88-year-old male with history of tracheostomy to vent found to be less alert and weak at [facility]. Patient's history taken from [facility] paperwork and nurse at transfer bedside. Patient has a history of type 2 diabetes acute on chronic respiratory failure COPD, pressure ulcers, PEG tube, neuromuscular dysfunctional bladder, heart failure, hypertension, glaucoma , BPH, localized swelling of right upper limb, anemia, failure to thrive, cachexia. Patient was recently admitted to [facility] and found to have pneumonitis intestinalis and stage IV decubitus ulcer with recent empty MRSA bacteremia where he was treated with IV antibiotics and PICC line. Earlier this afternoon patient became alert oriented x0, less responsive with his eyes. He usually is able to, as per nurse, follow with his eyes and make some purposeful movements.. Allergies: Coded Allergies: DORZOLAMIDE (Unverified Allergy, Unknown, 12/23/18) LISINOPRIL (Unverified Allergy, Unknown, 12/23/18) TIMOLOL (Unverified Allergy, Unknown, 12/23/18) TIOTROPIUM (Unverified Allergy, Unknown, 12/23/18) Nursing Documentation-PMH Hx Cardiac Problems: Yes Hx Hypertension: Yes Hx Asthma: Yes Hx COPD: Yes Hx Diabetes: Yes Hx Cancer: No Hx Gastrointestinal Problems: Yes - PEG Hx Neurological Problems: No Hx Weakness: Yes Review of Systems All Other Systems: limited - Unable to fully assess due to trach to vent, nonverbal status Physical Exam Vital Signs Date Time Temp Pulse Resp B/P (MAP) Pulse Ox O2 Delivery O2 Flow Rate FiO2 03/01/19 02:03 99.0 89 21 100/53 (69) 97 Mechanical Ventilator 03/01/19 02:23 28 Sp02 EP Interpretation: reviewed General Appearance: other - Cachectic however noted gross edema to bilateral upper and lower extremities, and groin Head: normocephalic, atraumatic Eyes: bilateral eye other - Pale conjunctive a ENT: uvula midline, dry mucus membranes Neck: limited range of motion - Likely at baseline Respiratory: no retraction, no wheezing, other - Trach to vent, bilateral rhonchi present Cardiovascular #1: regular rate, rhythm, edema - Bilateral upper extremity 4+ pitting edema, Procedures Critical Care Time Critical Care Time Patient required critical care time of 90 minutes not including procedural time or teachable time. Patient had difficult IV access. Patient care required to be discussed with family members, primary care doctor to make a treatment plan as per family member wishes. Time required to review testing and reevaluate based on testing. Patient reevaluated ER stay Medical Decision Making Diagnostic Impression: Primary Impression: Altered level of consciousness Additional Impressions: Ventilator dependent Weakness Sepsis Laboratory Tests Test 03/01/19 03:45 03/01/19 04:25 03/01/19 05:03 03/01/19 05:38 Urine Color Yellow Urine Appearance Cloudy Urine pH 5 (4.5-8.0) Urine Specific Ransom 1.010 (1.005-1.035) Urine Protein 2+ (NEGATIVE) H Urine Glucose (UA) Negative (NEGATIVE) Urine Ketones Negative (NEGATIVE) Urine Blood 2+ (NEGATIVE) H Urine Nitrite Negative (NEGATIVE) Urine Bilirubin Negative (NEGATIVE) Urine Urobilinogen Normal MG/DL (0.0-1.0) Urine Leukocyte Esterase 3+ (NEGATIVE) H Urine RBC 0-2 /HPF (0 - 0) H Urine WBC Tntc /HPF (0 - 0) H Urine Squamous Epithelial Cells Few /LPF (NONE/OCC) Urine Bacteria Many /HPF (NONE) H White Blood Count 21.3 K/UL (4.8-10.8) H Red Blood Count 3.22 M/UL (4.70-6.10) L Hemoglobin 8.6 G/DL (14.2-18.0) L Hematocrit 27.4 % (42.0-52.0) L Mean Corpuscular Volume 85 FL (80-99) Mean Corpuscular Hemoglobin 26.8 PG (27.0-31.0) L Mean Corpuscular Hemoglobin Concent 31.5 G/DL (32.0-36.0) L Red Cell Distribution Width 17.8 % (11.6-14.8) H Platelet Count 330 K/UL (150-450) Mean Platelet Volume 9.2 FL (6.5-10.1) Neutrophils (%) (Auto) % (45.0-75.0) Lymphocytes (%) (Auto) % (20.0-45.0) Monocytes (%) (Auto) % (1.0-10.0) Eosinophils (%) (Auto) % (0.0-3.0) Basophils (%) (Auto) % (0.0-2.0) Differential Total Cells Counted 100 Neutrophils % (Manual) 85 % (45-75) H Lymphocytes % (Manual) 9 % (20-45) L Monocytes % (Manual) 6 % (1-10) Eosinophils % (Manual) 0 % (0-3) Basophils % (Manual) 0 % (0-2) Band Neutrophils 0 % (0-8) Platelet Estimate Decreased L Platelet Morphology Normal Sodium Level 145 MMOL/L (136-145) Potassium Level 4.7 MMOL/L (3.5-5.1) Chloride Level 111 MMOL/L (98-107) H Carbon Dioxide Level 30 MMOL/L (21-32) Anion Gap 4 mmol/L (5-15) L Blood Urea Nitrogen 35 mg/dL (7-18) H Creatinine 0.5 MG/DL (0.55-1.30) L Estimate Glomerular Filtration Rate mL/min (>60) Glucose Level 84 MG/DL (74-106) Lactic Acid Level 2.90 mmol/L (0.4-2.0) H Pending Calcium Level 8.2 MG/DL (8.5-10.1) L Phosphorus Level 2.3 MG/DL (2.5-4.9) L Magnesium Level 2.6 MG/DL (1.8-2.4) H Total Bilirubin 0.2 MG/DL (0.2-1.0) Aspartate Amino Transferase (AST) 25 U/L (15-37) Alanine Aminotransferase (ALT) 34 U/L (12-78) Alkaline Phosphatase 251 U/L (46-116) H Total Creatine Kinase 42 U/L (26-308) Creatine Kinase MB 4.4 NG/ML (0.0-3.6) H Creatine Kinase MB Relative Index 10.4 Troponin I 0.054 ng/mL (0.000-0.056) Pro-B-Type Natriuretic Peptide Pending Total Protein 4.8 G/DL (6.4-8.2) L Albumin 0.9 G/DL (3.4-5.0) L Globulin 3.9 g/dL Albumin/Globulin Ratio 0.2 (1.0-2.7) L Lipase 85 U/L (73-393) Arterial Blood pH 7.426 (7.350-7.450) Arterial Blood Partial Pressure CO2 42.6 mmHg (35.0-45.0) Arterial Blood Partial Pressure O2 118.1 mmHg (75.0-100.0) H Arterial Blood HCO3 27.4 mmol/L (22.0-26.0) H Arterial Blood Oxygen Saturation 97.8 % (95-100) Arterial Blood Base Excess 2.7 (-2-2) H Samuel Test Positive Microbiology Date/Time Source Procedure Growth Status 03/01/19 03:45 Nasal Nares - Final Complete 03/01/19 03:45 Nasal Nares - Final Complete Lab Results Impression Patient's WBC count noted to be elevated at 21. Patient's hemoglobin decreased at 8.6. Patient's chemistry noted elevated chloride, elevated lactic acid, elevated BUN to creatinine ratio. Also noted elevated alk phos, and decreased protein., Urinalysis noted to have leukocyte esterase, RBCs, WBCs. EKG Diagnostic Results EKG Time: 02:30 EP Interpretation: Normal sinus rhythm, T wave flattening laterally. Rate: normal Rhythm: NSR ST Segments: no acute changes Reevaluation Time: 03:35 Last Vital Signs Date Time Temp Pulse Resp B/P (MAP) Pulse Ox O2 Delivery O2 Flow Rate FiO2 03/01/19 02:23 88 21 28 03/01/19 02:03 99.0 100/53 (69) 97 Mechanical Ventilator Reevaluation Impression Patient with difficult access. Discussed with patient's family Anika Lopez, niece who agreed for patient to have line placed in neck even though patient is comfort focused. She would like patient to have selective treatments such as IV fluids and antibiotics. She does not want invasive treatments if they are not necessary. She still does not want patient to have CPR. 0405 Left EJ was obtained. Patient's lab testing wasDrawn and sent to lab. Patient was started on IV fluids and antibiotics. Patient's care discussed with Dr. Fuornier [id number]. Patient admitted to stepdown unit for further treatment., Family notified. Disposition: ADMITTED INPATIENT Referrals: [facility],REFERRING (PCP) Sepsis Event Note Evaluation Current Stage of Sepsis: Sepsis Focused Exam Allergies: Coded Allergies: DORZOLAMIDE (Unverified Allergy, Unknown, 12/23/18) LISINOPRIL (Unverified Allergy, Unknown, 12/23/18) TIMOLOL (Unverified Allergy, Unknown, 12/23/18) TIOTROPIUM (Unverified Allergy, Unknown, 12/23/18) Date Exam Occurred: Mar 01, 2019 Time Exam Occurred: 05:00 Laboratory Studies Laboratory Tests Test 03/01/19 03:45 03/01/19 04:25 03/01/19 05:03 03/01/19 05:38 Urine Color Yellow Urine Appearance Cloudy Urine pH 5 (4.5-8.0) Urine Specific Ransom 1.010 (1.005-1.035) Urine Protein 2+ (NEGATIVE) H Urine Glucose (UA) Negative (NEGATIVE) Urine Ketones Negative (NEGATIVE) Urine Blood 2+ (NEGATIVE) H Urine Nitrite Negative (NEGATIVE) Urine Bilirubin Negative (NEGATIVE) Urine Urobilinogen Normal MG/DL (0.0-1.0) Urine Leukocyte Esterase 3+ (NEGATIVE) H Urine RBC 0-2 /HPF (0 - 0) H Urine WBC Tntc /HPF (0 - 0) H Urine Squamous Epithelial Cells Few /LPF (NONE/OCC) Urine Bacteria Many /HPF (NONE) H White Blood Count 21.3 K/UL (4.8-10.8) H Red Blood Count 3.22 M/UL (4.70-6.10) L Hemoglobin 8.6 G/DL (14.2-18.0) L Hematocrit 27.4 % (42.0-52.0) L Mean Corpuscular Volume 85 FL (80-99) Mean Corpuscular Hemoglobin 26.8 PG (27.0-31.0) L Mean Corpuscular Hemoglobin Concent 31.5 G/DL (32.0-36.0) L Red Cell Distribution Width 17.8 % (11.6-14.8) H Platelet Count 330 K/UL (150-450) Mean Platelet Volume 9.2 FL (6.5-10.1) Neutrophils (%) (Auto) % (45.0-75.0) Lymphocytes (%) (Auto) % (20.0-45.0) Monocytes (%) (Auto) % (1.0-10.0) Eosinophils (%) (Auto) % (0.0-3.0) Basophils (%) (Auto) % (0.0-2.0) Differential Total Cells Counted 100 Neutrophils % (Manual) 85 % (45-75) H Lymphocytes % (Manual) 9 % (20-45) L Monocytes % (Manual) 6 % (1-10) Eosinophils % (Manual) 0 % (0-3) Basophils % (Manual) 0 % (0-2) Band Neutrophils 0 % (0-8) Platelet Estimate Decreased L Platelet Morphology Normal Sodium Level 145 MMOL/L (136-145) Potassium Level 4.7 MMOL/L (3.5-5.1) Chloride Level 111 MMOL/L (98-107) H Carbon Dioxide Level 30 MMOL/L (21-32) Anion Gap 4 mmol/L (5-15) L Blood Urea Nitrogen 35 mg/dL (7-18) H Creatinine 0.5 MG/DL (0.55-1.30) L Estimat Glomerular Filtration Rate mL/min (>60) Glucose Level 84 MG/DL (74-106) Lactic Acid Level 2.90 mmol/L (0.4-2.0) H Pending Calcium Level 8.2 MG/DL (8.5-10.1) L Phosphorus Level 2.3 MG/DL (2.5-4.9) L Magnesium Level 2.6 MG/DL (1.8-2.4) H Total Bilirubin 0.2 MG/DL (0.2-1.0) Aspartate Amino Transf (AST/SGOT) 25 U/L (15-37) Alanine Aminotransferase (ALT/SGPT) 34 U/L (12-78) Alkaline Phosphatase 251 U/L (46-116) H Total Creatine Kinase 42 U/L (26-308) Creatine Kinase MB 4.4 NG/ML (0.0-3.6) H Creatine Kinase MB Relative Index 10.4 Troponin I 0.054 ng/mL (0.000-0.056) Pro-B-Type Natriuretic Peptide Pending Total Protein 4.8 G/DL (6.4-8.2) L Albumin 0.9 G/DL (3.4-5.0) L Globulin 3.9 g/dL Albumin/Globulin Ratio 0.2 (1.0-2.7) L Lipase 85 U/L (73-393) Arterial Blood pH 7.426 (7.350-7.450) Arterial Blood Partial Pressure CO2 42.6 mmHg (35.0-45.0) Arterial Blood Partial Pressure O2 118.1 mmHg (75.0-100.0) H Arterial Blood HCO3 27.4 mmol/L (22.0-26.0) H Arterial Blood Oxygen Saturation 97.8 % (95-100) Arterial Blood Base Excess 2.7 (-2-2) H Samuel Test Positive Vital Signs Last 24 Hour Vital Signs Date Time Temp Pulse Resp B/P (MAP) Pulse Ox O2 Delivery O2 Flow Rate FiO2 03/01/19 05:56 81 18 28 03/01/19 02:30 99.0 86 21 100/53 100 Mechanical Ventilator 03/01/19 02:30 88 21 Mechanical Ventilator 03/01/19 02:23 88 21 28 03/01/19 02:03 99.0 89 21 100/53 (69) 97 Mechanical Ventilator Respiratory Exam: Rhonchi Cardiovascular Exam: RRR, S1, S2 Capillary Refill: Less Than 2 Seconds Peripheral Pulse: Strong Pulse Location: Radial Skin Exam: Pallor Tulio Duffy M.D. Mar 01, 2019 03:36
[2019-03-01 04:48] LABS: BILIRUBIN, URINE NEGATIVE (NEGATIVE); GLUCOSE, URINE (UA) NEGATIVE (NEGATIVE); KETONES,URINE NEGATIVE (NEGATIVE); LEUKOCYTE ESTERASE ,URINE 3+ (NEGATIVE); NITRITE,URINE NEGATIVE (NEGATIVE); PH,URINE 5 (4.5-8.0); PROTEIN,URINE 2+ (NEGATIVE); UROBILINOGEN,URINE NORMAL MG/DL (0.0-1.0)
[2019-03-01 04:50] LABS: HEMATOCRIT 27.4 % (42.0-52.0); HEMOGLOBIN 8.6 G/DL (14.2-18.0); MEAN CORPUSCULAR VOLUME 85 FL (80-99); PLATELET COUNT 330 K/UL (150-450); RED BLOOD COUNT 3.22 M/UL (4.70-6.10); RED CELL DISTRIBUTION WIDTH 17.8 % (11.6-14.8); WHITE BLOOD COUNT 21.3 K/UL (4.8-10.8)
[2019-03-01 04:59] LABS: APPEARANCE,URINE CLOUDY; COLOR,URINE YELLOW
[2019-03-01 05:01] LABS: ANION GAP 4 mmol/L (5-15); BLOOD UREA NITROGEN 35 mg/dL (7-18); CALCIUM 8.2 MG/DL (8.5-10.1); CARBON DIOXIDE 30 MMOL/L (21-32); CHLORIDE 111 MMOL/L (98-107); CREATININE 0.5 MG/DL (0.55-1.30); POTASSIUM 4.7 MMOL/L (3.5-5.1); SODIUM 145 MMOL/L (136-145)
[2019-03-01 05:18] LABS: ALANINE AMINOTRANSFERASE 34 U/L (12-78); ALBUMIN 0.9 G/DL (3.4-5.0); ALBUMIN/GLOBULIN RATIO 0.2 (1.0-2.7); ALKALINE PHOSPHATASE 251 U/L (46-116); ASPARTATE AMINO TRANSFERASE 25 U/L (15-37); BILIRUBIN,TOTAL 0.2 MG/DL (0.2-1.0); CKMB 4.4 NG/ML (0.0-3.6); CREATINE KINASE 42 U/L (26-308); PHOSPHORUS 2.3 MG/DL (2.5-4.9)
--- NOTE | 2019-03-01 06:17 | NUR ---
ED Nurse Note: Blood pressure at 55/25 ERMD aware.
--- NOTE | 2019-03-01 06:21 | NUR ---
ED Nurse Note: Rechecked blood pressure at 74/47.
--- NOTE | 2019-03-01 06:30 | NUR ---
ED Nurse Note: Rechecked blood pressure 80/44 with 1L NS running.
--- NOTE | 2019-03-01 07:13 | NUR ---
ED Nurse Note: Pt report received; pt resting in bed aao x 0, BP 77/33, HR 72. ERMD aware.
--- NOTE | 2019-03-01 07:13 | NUR ---
HAND-OFF: Report given to NADINE Aguilar.
--- NOTE | 2019-03-01 08:30 | NUR ---
ED Nurse Note: Attempted to give report to Diane STRICKLAND RN. Pending transfer.
--- NOTE | 2019-03-01 09:21 | NUR ---
ED Nurse Note: RT informed of PT transfer. PT being transferred upstairs to SDU, report given to Diane MCCOY. Pt VS RR14 SPO2 95. AROLDO aware. Addendum: 03/01/19 at 0927 by MAURICE ED Nurse Note: RT informed of PT transfer. PT being transferred upstairs to SDU with RN, filler wiper and RT, report given to Diane MCCOY. Pt VS HR 91 RR14 SPO2 95. AROLDO aware.
--- NOTE | 2019-03-01 10:00 | NUR ---
NURSE NOTES: received pt from ER with dx AMS, obtunded, BP low 92/52, multiple decub, picture taken, GT clump, no co pain, no SOB, vent dependent, bed in low position, AFIB, HOB elevated.
--- NOTE | 2019-03-01 11:44 | NUR ---
CASE MANAGEMENT:INITIAL REVIEW 88 YR OLD MALE BIBA FROM [facility] CC;ALOC SI;ALOC. VENT DEPENDENT. SEPSIS. 99.0 91 14 78/49 100% MECH VENT WBC 21.3 RBC 3.22 H/H 8.6/27.4 BUN 35 CREAT 1.5 LAC ACID 2.90 MAG 2.6 IS;VANCOMYCIN IV X1 IVF NS X1 ADMITTED TO STEP DOWN SDU STATUS DCP;FROM [facility]
--- NOTE | 2019-03-01 11:45 | NUR ---
*-* NO INSURANCE INFORMATION IN THE BAR UNABLE TO SEND CLINICALS OR REVIEEWS *-*
[2019-03-01] MEDS ORDERED: ZINC SULFATE220 M1 GT (11:57)
[2019-03-01] MEDS ORDERED: Albuterol/Ipratropium 3ml neb HHN PRN (12:15)
--- NOTE | 2019-03-01 12:15 | Consultation ---
Consult Note Assessment/Plan H&P dictated # [id number] Josemanuel Lopes MD Mar 01, 2019 12:15
[2019-03-01] MEDS ORDERED: Cefepime HCl 1 GM in D5W 55 ML IVPB SCH (13:00)
--- NOTE | 2019-03-01 13:00 | NUR ---
NURSE NOTES: wound nurse saw pt, dressing changed, picture taken, bed bath given, repositioned.
[2019-03-01] MEDS: Albuterol/Ipratropium 3ml neb HHN SCH ×2 (13:10→18:47)
--- NOTE | 2019-03-01 13:24 | Diagnostic Imaging Report ---
Indication: Dyspnea Comparison: 02/13/2019 A single view chest radiograph was obtained. Findings: Pulmonary vascular prominence appears to be present. The lungs are hyperexpanded. There is pleural thickening at both lung bases. Tracheostomy noted. IMPRESSION: Suspected mild pulmonary vascular congestion. COPD
--- NOTE | 2019-03-01 13:30 | History and Physical Report ---
DATE OF ADMISSION: 03/01/2019 REASON FOR ADMISSION: Sepsis. HISTORY OF PRESENT ILLNESS: The patient is an 88-year-old male, trach and G-tube dependent, facility resident, recently admitted with sepsis and sent back to the facility with plan for comfort measures only. His niece recognize his mental status to be altered and requested that the patient to be sent back to the hospital. The patient thus was sent in. Upon arrival in the hospital, his T-max has been 99. He has been stable on the ventilator, but his blood pressure has been low. He had a lactic acidosis, which has since resolved with IV fluids and a marked leukocytosis. No history is obtainable from the patient. He has multiple wounds. PAST MEDICAL HISTORY: 1. G-tube dependence. 2. Tracheostomy and mechanical ventilator dependence. 3. Underlying dementia/CVA. 4. Multiple wounds. 5. Protein-calorie malnutrition and failure to thrive. 6. History of pneumatosis intestinalis. 7. Multiple decubitus ulcer. 8. MRSA bacteremia. 9. Glaucoma. 10. CAD. 11. CHF with diastolic dysfunction. ALLERGIES: Dorzolamide, lisinopril, timolol, and tiotropium. MEDICATIONS: Prior to admission medications reviewed. Current medications reviewed. SOCIAL HISTORY: retirement resident. Prior tobacco. No drug or alcohol. FAMILY HISTORY: Noncontributory. REVIEW OF SYSTEMS: Unobtainable. PHYSICAL EXAMINATION: VITAL SIGNS: Temperature 99, pulse 91, blood pressure 76/38, respiratory rate 14, saturating 100% on a ventilator. GENERAL: He is minimally interactive, status post PEG and trach. HEENT: Normocephalic and atraumatic. NECK: Supple. Trach intact. CHEST: Scattered rhonchi. HEART: Regular rate and rhythm. ABDOMEN: Soft, nontender, and nondistended. EXTREMITIES: No cyanosis, clubbing, or edema. Multiple wounds are noted including a stage IV decubitus ulcer. He has a left EJ catheter. ASSESSMENT: 1. Sepsis. 2. Lactic acidosis. 3. Tracheostomy status. 4. Dysphagia, status post G-tube. 5. Encephalopathy. 6. Multiple decubitus ulcer. 7. Glaucoma. 8. Hypertension, CAD, CHF with diastolic dysfunction. 9. DNAR. TREATMENT PLAN: 1. Ventilatory support, settings reviewed. 2. Titrate O2. 3. DuoNebs. 4. Start cefepime and vancomycin, follow up cultures. 5. Infectious Disease consultation obtained. 6. Follow up chest x-ray. 7. Monitor volumes and renal function, IV fluid hydration. 8. Heparin subcutaneous for DVT prophylaxis. 9. Wound care. 10. DNAR, continue to discuss goals of care, consider transition back to SNF with sepsis. 11. Case discussed extensively with the patient's niece, John. Josemanuel Lopes M.D. DR: FIDEL JOB#: [id number] CC:
--- NOTE | 2019-03-01 15:13 | NUR ---
NURSE NOTES:WOUND CARE NOTES:Pt presented with multiple pressure injuries and generalized edemae. Full thickness pressure injury R elbow with undermined borders(L)2.5cm x (W)2.5cm x (D)0.3cm. Base of wound has 100% blount slough. Periwound fluctuant unable to fully assess undermined borders secondary to edema Full thickness Sacral pressure injury. Base of wound has mixed necrosis and slough,sacral bone is palpable. (L)9.5cm x (W)10.3cm x(D)4cm,undermining clockwise 9-4 by 3.9cm @12o'clock.Mild odor noted. Unstageable pressure injury R ischium. Base of wound 95% soft necrosis with marginal slough/erythema along borders. Periwound skin tone is darker without induration. Second pressure injury noted to outer R ischium (L)1cm x (W)1cm . Base of wound has 90% blount slough. Unstageable pressure injury L ischium(L)5.4cm x (W)5cm. Base of wound 95% necrotic with surround beefy red margins.Periwound has darker skin tone and is fluctuant. Mild odor noted. Unstageable pressure injury medial R tibia. Base of wound is 80% necrotic with scattered slough. Surrounding pink epithelial. No odor or exudate noted.(L)14cm x (W)4cm. Unstageable pressure injury medial L tibia(L)5cm x (W)1.5cm. Base of wound is 90% slough,10% beefy red, with macerated borders. No odor noted. Unstageable Pressure Injury R heel.R heel necrotic and dry (L)6.7cm x (W)7cm. Edges adherent to base of wound. Periwound heel is boggy but pale in colour. Unstageable pressure injury L heel. Base of wound is necrotic and dry .Edges adherent to base of wound .Periwound is boggy but pale in colour.(L)5.5cm x (W)6.2cm. Toes are dusky in colour and cold both feet. Tx.Plan:Cleanse Sacral wound with Saline. Loosely pack wound with Therahoney impregnated Kerlix. Apply Moisture Barrier periwound. Cover with Optifoam drsg every 3 days and prn. Cleanse R and L ischial wound with Saline. Apply Therahoney. Apply MOisture Barrier periwound. Cover each wound with Optifoam drsg.every 3 days and prn. Apply Betadine to R and L tibia and both heel wounds . Cover each wound with ABD pads and wrap with Kerlix every 3 days and prn. APM/MATT Mattress. Reposition at least every 2hours or as tolerated. Off-load heels with pillow.
--- NOTE | 2019-03-01 16:02 | Diagnostic Imaging Report ---
Indication: Dyspnea Comparison: 03/01/2019 at 02:53 A single view chest radiograph was obtained. Findings: 15:20 Lungs are hyperexpanded. 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 This is probably chronic and due to pleural thickening as the configuration has not changed over several days. Heart size appears stable. Tracheostomy is again noted. Pulmonary vascularity appears mildly prominent as it did previously. IMPRESSION: No significant change from the earlier film
[2019-03-01] MEDS: NovoLOG Insulin Flexpen SUBQ SCH ×2 (16:30→21:00)
--- NOTE | 2019-03-01 18:22 | Infectious Diseases Prog Note ---
Assessment/Plan Assessment/Plan ASSESSMENT/PLAN; 1. sepsis, uti, hypothermia, leukocytosis, sirs, wounds - vancomycin, cefepime, flagyl, amikacin - f/u on cultures and labs - wound care per protocol 2. trach, vent and respiratory failure. 3. Dysphagia, G-tube. 4. Wound care protocol. 5. History of decubitus. 6. hypercapnia 7. Blood pressure treatment per primary care team. 8. Depression. 9. Diastolic heart failure. 10. Coronary artery disease. 11. GERD. 12. Glaucoma. 13. GI bleed. 14. Osteoarthritis. 15. BPH. 16. Malnutrition. 17. Allergies to dorzolamide, lisinopril, timolol, tiotropium, Spiriva. 18. Family history is noncontributory. 19. Social history is negative. 20. MAR was noted. 21. Case was discussed with RN. 22. ICU care. 23. Continue treatment per primary consultants. 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 Subjective Constitutional: Reports: other - + trach and vent ; Denies: fever HEENT: Reports: congestion Respiratory: Reports: shortness of breath Cardiovascular: Reports: other - no pressors Gastrointestinal/Abdominal: Denies: nausea, vomiting, diarrhea Genitourinary: Reports: other - + kline Neurologic: Reports: weakness, other - lethargic, opens eyes Psychiatric: Reports: other - NA Skin: Reports: other - + wounds/ulcers; Denies: rash Hematologic: Denies: bleeding Musculoskeletal: Reports: other - NA Allergies: Coded Allergies: DORZOLAMIDE (Unverified Allergy, Unknown, 12/23/18) LISINOPRIL (Unverified Allergy, Unknown, 12/23/18) TIMOLOL (Unverified Allergy, Unknown, 12/23/18) TIOTROPIUM (Unverified Allergy, Unknown, 12/23/18) Objective Vital Signs Last 24 Hour Vital Signs Date Time Temp Pulse Resp B/P (MAP) Pulse Ox O2 Delivery O2 Flow Rate FiO2 03/01/19 16:51 96 22 28 03/01/19 15:10 88 23 28 03/01/19 13:29 81 13 28 03/01/19 13:24 Mechanical Ventilator 03/01/19 12:00 28 03/01/19 12:00 90.5 84 17 97/57 (70) 99 03/01/19 11:15 79 16 28 03/01/19 09:50 91.4 105 20 92/52 (65) 98 03/01/19 09:44 97 03/01/19 09:29 96 13 28 03/01/19 09:21 99.0 91 14 76/38 100 Mechanical Ventilator 28 03/01/19 09:21 99.0 91 14 76/38 100 Mechanical Ventilator 28 03/01/19 08:13 99.0 91 14 78/49 100 Mechanical Ventilator 28 03/01/19 07:13 99.0 72 19 77/33 100 Mechanical Ventilator 28 03/01/19 06:50 94 18 28 03/01/19 06:50 96 13 100 Mechanical Ventilator 28 03/01/19 06:30 78 19 80/44 100 Mechanical Ventilator 28 03/01/19 06:21 76 21 74/47 100 Mechanical Ventilator 28 03/01/19 06:17 79 21 55/25 100 Mechanical Ventilator 28 03/01/19 05:56 81 18 28 03/01/19 02:30 99.0 86 21 100/53 100 Mechanical Ventilator 28 03/01/19 02:30 88 21 Mechanical Ventilator 28 03/01/19 02:23 88 21 28 03/01/19 02:03 99.0 89 21 100/53 (69) 97 Mechanical Ventilator Height (Feet): 5 Height (Inches): 7.00 Weight (Pounds): 154 General Appearance: other - on vent, trach, no pressors HEENT: normocephalic, atraumatic, anicteric, no JVD, status post trach Respiratory/Chest: crackles/rales, rhonchi - bilaterally Cardiovascular: normal rate, regularly irregular, no gallop/murmur, no JVD Abdomen: normal bowel sounds, soft, non tender, no organomegaly, non distended Genitourinary: other - + kline - urine cloudy Extremities: no cyanosis Skin: no rash, ulcers - wounds - reviewed Neurologic/Psychiatric: motor weakness, other - weak, opens eyes Lymphatic: no neck adenopathy Musculoskeletal: no effusion Objective 03/01/19 - chest x-ray - Procedure: XRAY Chest 1v Indication: Dyspnea Comparison: 03/01/2019 at 02:53 A single view chest radiograph was obtained. Findings: 15:20 Lungs are hyperexpanded. 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 This is probably chronic and due to pleural thickening as the configuration has not changed over several days. Heart size appears stable. Tracheostomy is again noted. Pulmonary vascularity appears mildly prominent as it did previously. IMPRESSION: No significant change from the earlier film Microbiology Date/Time Source Procedure Growth Status 03/01/19 03:45 Nasal Nares - Final Complete 03/01/19 03:45 Nasal Nares - Final Complete Laboratory Tests Test 03/01/19 03:45 03/01/19 04:25 03/01/19 05:03 03/01/19 05:38 Urine Color Yellow Urine Appearance Cloudy Urine pH 5 (4.5-8.0) Urine Specific [place] 1.010 (1.005-1.035) Urine Protein 2+ (NEGATIVE) H Urine Glucose (UA) Negative (NEGATIVE) Urine Ketones Negative (NEGATIVE) Urine Blood 2+ (NEGATIVE) H Urine Nitrite Negative (NEGATIVE) Urine Bilirubin Negative (NEGATIVE) Urine Urobilinogen Normal MG/DL (0.0-1.0) Urine Leukocyte Esterase 3+ (NEGATIVE) H Urine RBC 0-2 /HPF (0 - 0) H Urine WBC Tntc /HPF (0 - 0) H Urine Squamous Epithelial Cells Few /LPF (NONE/OCC) Urine Bacteria Many /HPF (NONE) H White Blood Count 21.3 K/UL (4.8-10.8) H Red Blood Count 3.22 M/UL (4.70-6.10) L Hemoglobin 8.6 G/DL (14.2-18.0) L Hematocrit 27.4 % (42.0-52.0) L Mean Corpuscular Volume 85 FL (80-99) Mean Corpuscular Hemoglobin 26.8 PG (27.0-31.0) L Mean Corpuscular Hemoglobin Concent 31.5 G/DL (32.0-36.0) L Red Cell Distribution Width 17.8 % (11.6-14.8) H Platelet Count 330 K/UL (150-450) Mean Platelet Volume 9.2 FL (6.5-10.1) Neutrophils (%) (Auto) % (45.0-75.0) Lymphocytes (%) (Auto) % (20.0-45.0) Monocytes (%) (Auto) % (1.0-10.0) Eosinophils (%) (Auto) % (0.0-3.0) Basophils (%) (Auto) % (0.0-2.0) Differential Total Cells Counted 100 Neutrophils % (Manual) 85 % (45-75) H Lymphocytes % (Manual) 9 % (20-45) L Monocytes % (Manual) 6 % (1-10) Eosinophils % (Manual) 0 % (0-3) Basophils % (Manual) 0 % (0-2) Band Neutrophils 0 % (0-8) Platelet Estimate Decreased L Platelet Morphology Normal Sodium Level 145 MMOL/L (136-145) Potassium Level 4.7 MMOL/L (3.5-5.1) Chloride Level 111 MMOL/L (98-107) H Carbon Dioxide Level 30 MMOL/L (21-32) Anion Gap 4 mmol/L (5-15) L Blood Urea Nitrogen 35 mg/dL (7-18) H Creatinine 0.5 MG/DL (0.55-1.30) L Estimat Glomerular Filtration Rate mL/min (>60) Glucose Level 84 MG/DL (74-106) Lactic Acid Level 2.90 mmol/L (0.4-2.0) H 2.10 mmol/L (0.66-2.22) Calcium Level 8.2 MG/DL (8.5-10.1) L Phosphorus Level 2.3 MG/DL (2.5-4.9) L Magnesium Level 2.6 MG/DL (1.8-2.4) H Total Bilirubin 0.2 MG/DL (0.2-1.0) Aspartate Amino Transf (AST/SGOT) 25 U/L (15-37) Alanine Aminotransferase (ALT/SGPT) 34 U/L (12-78) Alkaline Phosphatase 251 U/L (46-116) H Total Creatine Kinase 42 U/L (26-308) Creatine Kinase MB 4.4 NG/ML (0.0-3.6) H Creatine Kinase MB Relative Index 10.4 Troponin I 0.054 ng/mL (0.000-0.056) Pro-B-Type Natriuretic Peptide Pending Total Protein 4.8 G/DL (6.4-8.2) L Albumin 0.9 G/DL (3.4-5.0) L Globulin 3.9 g/dL Albumin/Globulin Ratio 0.2 (1.0-2.7) L Lipase 85 U/L (73-393) Arterial Blood pH 7.426 (7.350-7.450) Arterial Blood Partial Pressure CO2 42.6 mmHg (35.0-45.0) Arterial Blood Partial Pressure O2 118.1 mmHg (75.0-100.0) H Arterial Blood HCO3 27.4 mmol/L (22.0-26.0) H Arterial Blood Oxygen Saturation 97.8 % (95-100) Arterial Blood Base Excess 2.7 (-2-2) H Samuel Test Positive Current Medications Medications (Trade) Dose Ordered Sig/Katie Route PRN Reason Start Time Stop Time Status Last Admin Dose Admin Albuterol/ Ipratropium (Albuterol/ Ipratropium) 3 ml Q4H PRN HHN Shortness of Breath 03/01/19 12:15 03/06/19 12:14 Albuterol/ Ipratropium (Albuterol/ Ipratropium) 3 ml Q6HRT HHN 03/01/19 13:00 03/06/19 12:59 03/01/19 13:10 Cefepime HCl 1 gm/ Dextrose 50 ml @ 100 mls/hr Q12H IVPB 03/01/19 23:00 03/08/19 22:59 Dextrose (Dextrose 50%) 25 ml Q30M PRN IV Hypoglycemia 03/01/19 12:30 03/31/19 12:29 Dextrose (Dextrose 50%) 50 ml Q30M PRN IV Hypoglycemia 03/01/19 12:30 03/31/19 12:29 Heparin Sodium (Porcine) (Heparin 5000 units/ml) 5,000 units EVERY 12 HOURS SUBQ 03/01/19 21:00 03/31/19 20:59 Insulin Aspart (NovoLOG) BEFORE MEALS AND HS SUBQ 03/01/19 16:30 03/31/19 16:29 Metronidazole 100 ml @ 100 mls/hr Q8HR IVPB 03/01/19 22:00 03/08/19 21:59 Sodium Chloride 1,000 ml @ 75 mls/hr [id number] IV 03/01/19 12:30 03/31/19 12:29 03/01/19 13:41 Vancomycin HCl (Vanco rx to dose) 1 ea DAILY PRN MISC Per rx protocol 03/01/19 12:15 03/31/19 12:14 Vancomycin HCl 1 gm/Sodium Chloride 275 ml @ 183.708 mls/hr Q24H IVPB 03/02/19 05:00 03/07/19 04:59 Randal Pool MD Mar 01, 2019 18:22
[2019-03-01] MEDS ORDERED: Amikacin Rx to dose MISC PRN (18:30)
--- NOTE | 2019-03-01 19:00 | NUR ---
NURSE NOTES: BS was 67, orange juice give, recheck 103.
--- NOTE | 2019-03-01 19:15 | NUR ---
HAND-OFF: Report given to AC MCCOY.
--- NOTE | 2019-03-01 19:20 | NUR ---
NURSE NOTES: Received patient from Nupur Mosley RN. patient is observed in bed, obtunded, nonverbal, unable to make needs known. no s/sx of pain noted at this time. trach to vent settings are as follows: Shiley: 8, AC: 12, TV: 500, FiO2: 28%, PEEP: 5. tolerating well, saturating at 100%, no s/sx of respiratory distress noted at this time. cardiac catheterization technologist shows ST with HR of 108. no acute cardiac distress noted at this time. G-tube site is patent and intact, running Glucerna 1.5 at 50 cc/hr. HOB elevated to 45 degrees, no residual noted. F/C is patent and intact, draining well to gravity. skin alterations noted. LEJ 18 g IV site is patent and intact, running NS at 75 cc/hr. bed in lowest position and locked, siderails up X3, call light within reach. will continue to monitor.
[2019-03-01] MEDS: Amikacin 1,000 MG in NS 110 ML IV SCH (20:17)
[2019-03-01] MEDS: Heparin 5000 units/ml inj SUBQ SCH (21:13)
[2019-03-02] VITALS (7 sets, daily range): BP systolic 88–125; BP diastolic 42–78
[2019-03-02] MEDS: Albuterol/Ipratropium 3ml neb HHN SCH ×4 (01:25→19:15)
[2019-03-02] MEDS: Vancomycin 1 GM in NS 275 ML IVPB SCH (05:12)
[2019-03-02] MEDS: NovoLOG Insulin Flexpen SUBQ SCH ×4 (06:30→21:00)
--- NOTE | 2019-03-02 07:21 | Consultation ---
DATE OF CONSULTATION: 03/01/2019 CONSULTING PHYSICIAN: Estevan Fournier M.D. REFERRING PHYSICIAN: Josemanuel Lopes M.D. REASON FOR CONSULTATION: Electrolyte imbalance. HISTORY OF PRESENT ILLNESS: The patient is an 88-year-old male who has ventilator-dependent respiratory failure. He recently had a long hospitalization, treatment of sepsis, and multiple medical problems. On his last admission, he had hyponatremia, acute kidney injury, and some hypophosphatemia. The patient also had a serum albumin of less than or equal to 1.2 and severe anasarca. He apparently developed increasing lethargy at the [facility] and the family wished him to be sent to the hospital. PAST MEDICAL HISTORY: He has decubitus ulcer with history of CVA, history of glaucoma, coronary artery disease, CHF with diastolic dysfunction. ALLERGIES: Dorzolamide, lisinopril, timolol, and tiotropium. PRIOR TO ADMISSION MEDICATIONS: . SYSTEM REVIEW: The patient is unable. Major problems as above. PHYSICAL EXAMINATION: GENERAL: The patient is seen lying in bed on a ventilator. VITAL SIGNS: Temperature 95.9, pulse 87, respirations 17, and blood pressure 94/64. HEAD, EYES, EARS, NOSE, AND THROAT: He is not following with his eyes. Oral mucosa dry. There is frontal wasting. NECK: Tracheostomy. LUNGS: Few rhonchi. HEART: Regular rhythm. I hear no murmur. ABDOMEN: Soft. There is a gastrostomy. I do not feel liver or spleen. EXTREMITIES: Show 2 to 3+ edema. There are wounds with dressings on both legs. SKIN: Otherwise, decubiti are not reviewed at this time. NEUROLOGIC: The patient is obtunded and not moving. PERTINENT LABORATORY DATA: Sodium 145, potassium 4.7, chloride 111, CO2 of 30, BUN 35, creatinine 0.5, glucose 84, lactic acid 2.9 and 2.10. Phosphorus is 2.3. Troponin 0.054. Albumin is 0.9. IMPRESSION: 1. Failure to thrive. 2. Severe protein-calorie malnutrition with an albumin less than 1. 3. Acute kidney injury, likely prerenal. 4. Anasarca secondary to severe malnutrition. 5. Hypophosphatemia. 6. Pyuria, likely UTI. 7. Obtundation, likely multifactorial due to sepsis, old CVA, and debility. PLAN: At this time, I agree with the provision of comfort measures. His blood pressure is below normal, which is his baseline. I would hydrate him cautiously with known history of CHF and try to minimize labs. We will try to take him to labs for monitoring of fluid administration. Thank you so much. Estevan Fournier M.D. DR: GLADIS JOB#: [id number] CC:
--- NOTE | 2019-03-02 07:44 | NUR ---
HAND-OFF: Report given to Nupur Mosley RN. pt is in stable condition.
--- NOTE | 2019-03-02 08:10 | NUR ---
NURSE NOTES: received pt in the bed, obtunded, vent dependent, vital signs stable, no SOB, multiple wounds, dressing dry and intact, Mcpherson catheter with yellow urine, tolerate GT feeding well, both UE swollen, bed in low position, HOB elevated.
[2019-03-02] MEDS: Phospha 250 Neutral tab GT SCH ×3 (08:26→18:00)
[2019-03-02] MEDS: Heparin 5000 units/ml inj SUBQ SCH ×2 (08:31→21:48)
--- NOTE | 2019-03-02 13:49 | NUR ---
NURSE NOTES: vital signs stable, no SOB, repositioned, tolerate feeding well, continue monitoring.
--- NOTE | 2019-03-02 15:06 | Nephrology Progress Note ---
Assessment/Plan Problem List: (1) Failure to thrive in adult (2) Hyponatremia (3) Hypernatremia (4) Altered level of consciousness (5) Ventilator dependent (6) Malnutrition Plan comfort measures appropriate, mild iv hydration to support bp Subjective ROS Limited/Unobtainable: Yes Objective Objective Last 24 Hour Vital Signs Date Time Temp Pulse Resp B/P (MAP) Pulse Ox O2 Delivery O2 Flow Rate FiO2 03/02/19 12:55 125/78 (94) 03/02/19 12:46 102 19 Mechanical Ventilator 28 28 03/02/19 12:01 Mechanical Ventilator 03/02/19 12:01 28 03/02/19 12:00 95 03/02/19 12:00 97.2 105 16 88/42 (57) 100 03/02/19 11:08 101 20 28 03/02/19 09:09 100 20 28 03/02/19 08:15 109 21 100 Mechanical Ventilator 28 100 20 28 03/02/19 08:00 108 03/02/19 08:00 28 03/02/19 08:00 Mechanical Ventilator 03/02/19 08:00 97.5 108 18 92/50 (64) 100 03/02/19 04:57 103 18 28 03/02/19 04:00 96.8 105 23 104/56 (72) 100 03/02/19 04:00 28 03/02/19 04:00 Mechanical Ventilator 03/02/19 04:00 104 03/02/19 02:45 107 19 28 03/02/19 01:26 105 21 100 Mechanical Ventilator 28 107 12 28 03/02/19 00:00 99 03/02/19 00:00 Mechanical Ventilator 03/02/19 00:00 97.3 102 21 100/73 (82) 99 03/02/19 00:00 28 03/01/19 22:46 98 23 28 03/01/19 21:15 99 21 28 03/01/19 20:00 Mechanical Ventilator 03/01/19 20:00 28 03/01/19 20:00 96.8 103 23 100/50 (67) 100 03/01/19 20:00 108 03/01/19 18:32 102 22 99 Mechanical Ventilator 28 108 12 28 03/01/19 16:51 96 22 28 03/01/19 16:00 87 1/22/20 16:00 28 03/01/19 16:00 Mechanical Ventilator 03/01/19 16:00 95.9 89 17 94/64 (74) 100 03/01/19 15:10 88 23 28 Intake and Output 03/01/19 03/02/19 19:00 07:00 Intake Total 750 ml 1189 ml Output Total 250 ml 200 ml Balance 500 ml 989 ml Free Water 100 ml 100 ml IV Total 300 ml 539 ml Tube Feeding 350 ml 550 ml Output Urine Total 250 ml 200 ml # Bowel Movements 1 Laboratory Tests 03/02/19 08:00: Random Amikacin Level 15.0 Height (Feet): 5 Height (Inches): 7.00 Weight (Pounds): 154 General Appearance: lethargic, cachetic Neck: other - trach Cardiovascular: regular rhythm Respiratory/Chest: rhonchi - bilaterally Abdomen: non tender Extremities: severe edema Neurologic: unresponsive Estevan Fournier MD Mar 02, 2019 15:06
--- NOTE | 2019-03-02 15:08 | Consultation ---
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 Patient has a history of type 2 diabetes acute on chronic respiratory failure COPD, pressure ulcers, PEG tube, neuromuscular dysfunctional bladder, heart failure, hypertension, glaucoma, BPH, localized swelling of right upper limb, anemia, failure to thrive, cachexia. Patient was recently admitted to [facility] and found to have pneumonitis intestinalis and stage IV decubitus ulcer with recent empty MRSA bacteremia where he was treated with IV antibiotics and PICC line. He was improved and discharged in stable condition but overall prognosis guarded. Code states was changed during last admission. on day of admission became less alert as he usually is able to, as per nurse, follow with his eyes and make some purposeful movements. still with large wounds and malnutrition. surgery called to evaluate and assist with care Allergies: Coded Allergies: DORZOLAMIDE (Unverified Allergy, Unknown, 12/23/18) LISINOPRIL (Unverified Allergy, Unknown, 12/23/18) TIMOLOL (Unverified Allergy, Unknown, 12/23/18) TIOTROPIUM (Unverified Allergy, Unknown, 12/23/18) Medication History Scheduled Ascorbic Acid* (Vitamin C*), 500 MG GT DAILY, (Reported) Ferrous Sulfate* (Ferrous Sulfate*), 325 MG GT DAILY, (Reported) Ipratropium/Albuterol Sulfate (DuoNeb 0.5-3(2.5)mg/3ml), 3 ML HHN Q6HR, ( Reported) Lansoprazole* (Lansoprazole*), 15 MG GT DAILY, (Reported) Multivitamins* (Multivitamins*), 1 TAB ORAL DAILY, (Reported) Zinc Sulfate (Zinc Sulfate*), 220 MG GT DAILY, (Reported) Scheduled PRN Acetaminophen* (Acetaminophen 325MG Tablet*), 650 MG ORAL Q6H PRN for PAIN 5-7 OR TEMP>100F, (Reported) Na Phos,M-B/Na Phos,Di-Ba* (Fleet Enema*), 133 ML RECTAL DAILY PRN for Constipation, (Reported) Miscellaneous Medications Bisacodyl (Dulcolax), 10 MG RC, (Reported) Discontinued Medications Acetaminophen (Acetaminophen), 500 MG ORAL Q6HR PRN for PAIN (PAIN SCALE 1 - 4), (Reported) Discontinued Reason: Pt stopped taking med Acetaminophen* (Acetaminophen 325MG Tablet*), 650 MG ORAL DAILY, (Reported) Discontinued Reason: Pt stopped taking med Acetaminophen* (Acetaminophen 325MG Tablet*), 650 MG ORAL Q4H PRN for Pain Scale (3-5), (Reported) Discontinued Reason: MD discontinued med Amlodipine Besylate* (Amlodipine Besylate*), 5 MG ORAL DAILY, (Reported) Discontinued Reason: Pt stopped taking med Atenolol* (Tenormin*), 100 MG ORAL DAILY, (Reported) Discontinued Reason: Pt stopped taking med Clonidine Hcl* (Catapres*), 0.1 MG ORAL EVERY 6 HOURS PRN for SBP>160 OR DBP>90, (Reported) Discontinued Reason: Pt stopped taking med Diltiazem Hcl* (Cardizem*), 60 MG GT QID, (Reported) Discontinued Reason: Pt stopped taking med Docusate Sodium* (Docusate Sodium*), 100 MG ORAL TWICE A DAY PRN for Constipation, (Reported) Discontinued Reason: MD discontinued med Docusate Sodium* (Docusate Sodium*), 100 MG GT DAILY, (Reported) Discontinued Reason: Pt stopped taking med Dorzolamide Hcl* (Trusopt*), 1 DROP BOTH EYES BID, (Reported) Discontinued Reason: Pt stopped taking med Ferrous Sulfate* (Ferrous Sulfate*), 325 MG ORAL QOD, (Reported) Discontinued Reason: MD discontinued med Fluticasone/Salmeterol (Advair Hfa 115-21 Mcg Inhaler), 2 PUFFS INH BID, ( Reported) Discontinued Reason: Pt stopped taking med Furosemide* (Lasix*), 20 MG ORAL DAILY, (Reported) Discontinued Reason: Pt stopped taking med Furosemide* (Lasix*), 40 MG GT DAILY, (Reported) Discontinued Reason: Pt stopped taking med Guaifenesin/Dextromethorphan (Guaifenesin-Dm 100-10 mg/5 ml), 10 ML PO Q4HR PRN for For Cough, (Reported) Discontinued Reason: Pt stopped taking med Hydrocodone Bit/Acetaminophen 5-325* ([place] 5-325*), 1 TAB ORAL Q6H PRN for SEVERE PAIN (PAIN SCALE 8-10), (Reported) Discontinued Reason: Pt stopped taking med Losartan Potassium (Losartan Potassium), 100 MG ORAL DAILY, (Reported) Discontinued Reason: Pt stopped taking med Mirtazapine* (Mirtazapine*), 15 MG ORAL BEDTIME, (Reported) Discontinued Reason: Pt stopped taking med Tfskxekelzwy-Zpnx-Dcrjawgg,Iso (Zosyn 3.375 Gm Pre Mix-Bag), 2.25 GM IVPB EVERY 6 HOURS, (Reported) Discontinued Reason: Pt stopped taking med Tamsulosin HCl (Flomax), 0.4 MG ORAL DAILY, (Reported) Discontinued Reason: Pt stopped taking med Tamsulosin HCl (Flomax), 0.4 MG GT DAILY, (Reported) Discontinued Reason: Pt stopped taking med Vancomycin Hcl (Vancomycin), 750 MG IVPB BID, (Reported) Discontinued Reason: Pt stopped taking med Patient History Limited by: medical condition History Provided By: Medical Record, PMD Healthcare decision maker Resuscitation status Do Not Resuscitate Advanced Directive on File No Past Medical/Surgical History Past Medical/Surgical History: (1) Decubitus skin ulcer (2) Retention of fluid (3) Encounter for PEG (percutaneous endoscopic gastrostomy) (4) Left elbow contusion (5) Hypokalemia (6) Weakness (7) Altered level of consciousness (8) Sepsis (9) Shortness of breath with (10) Hypernatremia (11) Hyponatremia (12) Malnutrition (13) Ventilator dependent (14) Failure to thrive in adult Review of Systems ROS Narrative unable to obtain given medical condition Physical Exam General Appearance: no apparent distress Lines, tubes and drains: PICC HEENT: mucous membranes moist Neck: trach Respiratory/Chest: no respiratory distress, no accessory muscle use, decreased breath sounds, on vent Cardiovascular/Chest: normal rate, other Abdomen: normal bowel sounds, soft, no organomegaly, no mass, feeding tube, other Extremities: slow capillary refill, other Skin Exam: warm/dry Neurologic: unresponsiveness Last 24 Hour Vital Signs Date Time Temp Pulse Resp B/P (MAP) Pulse Ox O2 Delivery O2 Flow Rate FiO2 03/02/19 12:55 125/78 (94) 03/02/19 12:46 102 19 Mechanical Ventilator 28 28 03/02/19 12:01 Mechanical Ventilator 03/02/19 12:01 28 03/02/19 12:00 95 03/02/19 12:00 97.2 105 16 88/42 (57) 100 03/02/19 11:08 101 20 28 03/02/19 09:09 100 20 28 03/02/19 08:15 109 21 100 Mechanical Ventilator 28 100 20 28 03/02/19 08:00 108 03/02/19 08:00 28 03/02/19 08:00 Mechanical Ventilator 03/02/19 08:00 97.5 108 18 92/50 (64) 100 03/02/19 04:57 103 18 28 03/02/19 04:00 96.8 105 23 104/56 (72) 100 03/02/19 04:00 28 03/02/19 04:00 Mechanical Ventilator 03/02/19 04:00 104 03/02/19 02:45 107 19 28 03/02/19 01:26 105 21 100 Mechanical Ventilator 28 107 12 28 03/02/19 00:00 99 03/02/19 00:00 Mechanical Ventilator 03/02/19 00:00 97.3 102 21 100/73 (82) 99 03/02/19 00:00 28 03/01/19 22:46 98 23 28 03/01/19 21:15 99 21 28 03/01/19 20:00 Mechanical Ventilator 03/01/19 20:00 28 03/01/19 20:00 96.8 103 23 100/50 (67) 100 03/01/19 20:00 108 03/01/19 18:32 102 22 99 Mechanical Ventilator 28 108 12 28 03/01/19 16:51 96 22 28 03/01/19 16:00 87 03/01/19 16:00 28 03/01/19 16:00 Mechanical Ventilator 03/01/19 16:00 95.9 89 17 94/64 (74) 100 03/01/19 15:10 88 23 28 Intake and Output 03/01/19 03/02/19 19:00 07:00 Intake Total 750 ml 1189 ml Output Total 250 ml 200 ml Balance 500 ml 989 ml Free Water 100 ml 100 ml IV Total 300 ml 539 ml Tube Feeding 350 ml 550 ml Output Urine Total 250 ml 200 ml # Bowel Movements 1 Laboratory Tests Test 03/02/19 08:00 Random Amikacin Level 15.0 MG/L Height (Feet): 5 Height (Inches): 7.00 Weight (Pounds): 154 Medications Current Medications Medications (Trade) Dose Ordered Sig/Katie Route PRN Reason Start Time Stop Time Status Last Admin Dose Admin Albuterol/ Ipratropium (Albuterol/ Ipratropium) 3 ml Q4H PRN HHN Shortness of Breath 03/01/19 12:15 03/06/19 12:14 Albuterol/ Ipratropium (Albuterol/ Ipratropium) 3 ml Q6HRT HHN 03/01/19 13:00 03/06/19 12:59 03/02/19 12:46 Amikacin Protocol (Amikacin pharmacy to dose) 1 ea DAILY PRN MISC Per rx protocol 03/01/19 18:30 03/31/19 18:29 Amikacin Sulfate 1000 mg/Sodium Chloride 114 ml @ 114 mls/hr Q36H IV 03/01/19 20:00 03/08/19 19:59 03/01/19 20:17 Cefepime HCl 1 gm/ Dextrose 50 ml @ 100 mls/hr Q12H IVPB 03/01/19 23:00 03/08/19 22:59 03/02/19 11:20 Dextrose (Dextrose 50%) 25 ml Q30M PRN IV Hypoglycemia 03/01/19 12:30 03/31/19 12:29 Dextrose (Dextrose 50%) 50 ml Q30M PRN IV Hypoglycemia 03/01/19 12:30 03/31/19 12:29 Heparin Sodium (Porcine) (Heparin 5000 units/ml) 5,000 units EVERY 12 HOURS SUBQ 03/01/19 21:00 03/31/19 20:59 03/02/19 08:31 Insulin Aspart (NovoLOG) BEFORE MEALS AND HS SUBQ 03/01/19 16:30 03/31/19 16:29 Metronidazole 100 ml @ 100 mls/hr Q8HR IVPB 03/01/19 22:00 03/08/19 21:59 03/02/19 13:57 Phosphorus (Phospha 250 Neutral) 250 mg THREE TIMES A DAY GT 03/02/19 09:00 04/01/19 08:59 03/02/19 12:49 Sodium Chloride 1,000 ml @ 30 mls/hr Q24H IV 03/02/19 12:30 04/01/19 12:29 03/02/19 12:50 Vancomycin HCl (Vanco rx to dose) 1 ea DAILY PRN MISC Per rx protocol 03/01/19 12:15 03/31/19 12:14 Vancomycin HCl 1 gm/Sodium Chloride 275 ml @ 183.708 mls/hr Q24H IVPB 03/02/19 05:00 03/07/19 04:59 03/02/19 05:12 Assessment/Plan Problem List: (1) Malnutrition ICD Codes: E46 - Unspecified protein-calorie malnutrition SNOMED: 47457351 (2) Failure to thrive in adult ICD Codes: R62.7 - Adult failure to thrive SNOMED: 162772919 (3) Decubitus skin ulcer ICD Codes: L89.90 - Pressure ulcer of unspecified site, unspecified stage SNOMED: 188013367 (4) Sepsis Assessment & Plan: Patient presents with leukocytosis, lactic acidosis, abnormal labs. Altered mental status Continued malnutrition failure to thrive in adult Decubitus skin ulcers Patient evaluated full physical examination completed wounds unlikely etiology of patient's sepsis Micro noted Chest x-ray reviewed Trach in place on support Care plan initiated Discussed with PCP and consultants Thank you for let me participation's care will continue to follow with recommendations ICD Codes: A41.9 - Sepsis, unspecified organism SNOMED: 54243705 Sher Keene Mar 02, 2019 15:08
--- NOTE | 2019-03-02 15:12 | Pulmonology Progress Note ---
Assessment/Plan Problems: (1) Sepsis (2) Failure to thrive in adult (3) Ventilator dependent (4) Malnutrition (5) Altered level of consciousness (6) Decubitus skin ulcer Assessment/Plan SSESSMENT: 1. SEPSIS: GNB UTI, GNR BSI 2. Lactic acidosis - RESOLVED 3. Tracheostomy status. 4. Dysphagia, status post G-tube. 5. Encephalopathy. 6. Multiple decubitus ulcer. 7. Glaucoma. 8. Hypertension, CAD, CHF with diastolic dysfunction. 9. DNAR. TREATMENT PLAN: 1. Ventilatory support, settings reviewed. 2. Titrate O2. 3. DuoNebs. 4. Abx per ID, follow up cultures. 5. Monitor volumes and renal function, IV fluid hydration. 6. Wound care 7. TF's 8. Heparin subcutaneous for DVT prophylaxis. 9. Computer Security Specialist recs 10. DNAR, continue to discuss goals of care, consider transition back to SNF with hospice Subjective Allergies: Coded Allergies: DORZOLAMIDE (Unverified Allergy, Unknown, 12/23/18) LISINOPRIL (Unverified Allergy, Unknown, 12/23/18) TIMOLOL (Unverified Allergy, Unknown, 12/23/18) TIOTROPIUM (Unverified Allergy, Unknown, 12/23/18) Subjective AFVSS Stable on vent GNB in urine 12 GNR in blood No sig secretions Labs pending Objective Last 24 Hour Vital Signs Date Time Temp Pulse Resp B/P (MAP) Pulse Ox O2 Delivery O2 Flow Rate FiO2 03/02/19 12:55 125/78 (94) 03/02/19 12:46 102 19 Mechanical Ventilator 28 28 03/02/19 12:01 Mechanical Ventilator 03/02/19 12:01 28 03/02/19 12:00 95 03/02/19 12:00 97.2 105 16 88/42 (57) 100 03/02/19 11:08 101 20 28 03/02/19 09:09 100 20 28 03/02/19 08:15 109 21 100 Mechanical Ventilator 28 100 20 28 03/02/19 08:00 108 03/02/19 08:00 28 03/02/19 08:00 Mechanical Ventilator 03/02/19 08:00 97.5 108 18 92/50 (64) 100 03/02/19 04:57 103 18 28 03/02/19 04:00 96.8 105 23 104/56 (72) 100 03/02/19 04:00 28 03/02/19 04:00 Mechanical Ventilator 03/02/19 04:00 104 03/02/19 02:45 107 19 28 03/02/19 01:26 105 21 100 Mechanical Ventilator 28 107 12 28 03/02/19 00:00 99 03/02/19 00:00 Mechanical Ventilator 03/02/19 00:00 97.3 102 21 100/73 (82) 99 03/02/19 00:00 28 03/01/19 22:46 98 23 28 03/01/19 21:15 99 21 28 03/01/19 20:00 Mechanical Ventilator 03/01/19 20:00 28 03/01/19 20:00 96.8 103 23 100/50 (67) 100 03/01/19 20:00 108 03/01/19 18:32 102 22 99 Mechanical Ventilator 28 108 12 28 03/01/19 16:51 96 22 28 03/01/19 16:00 87 03/01/19 16:00 28 03/01/19 16:00 Mechanical Ventilator 03/01/19 16:00 95.9 89 17 94/64 (74) 100 03/01/19 15:10 88 23 28 Intake and Output 03/01/19 03/02/19 19:00 07:00 Intake Total 750 ml 1189 ml Output Total 250 ml 200 ml Balance 500 ml 989 ml Free Water 100 ml 100 ml IV Total 300 ml 539 ml Tube Feeding 350 ml 550 ml Output Urine Total 250 ml 200 ml # Bowel Movements 1 General Appearance: other - non-verbal HEENT: status post trach Respiratory/Chest: rhonchi Cardiovascular: normal peripheral pulses, normal rate, regular rhythm Abdomen: normal bowel sounds, soft, non tender, no organomegaly, non distended , no mass, other - GT CDI Extremities: no cyanosis, no clubbing, no edema Microbiology Date/Time Source Procedure Growth Status 03/01/19 04:10 Blood Blood Culture - Preliminary Resulted 03/01/19 03:55 Blood Blood Culture - Preliminary NO GROWTH AFTER 24 HOURS Resulted 03/01/19 07:33 Sputum Gram Stain - Final Resulted 03/01/19 07:33 Sputum Culture - Preliminary Gram Negative Bacillus 1 Resulted 03/01/19 03:45 Nasal Nares - Final Complete 03/01/19 03:45 Nasal Nares - Final Complete 03/01/19 03:45 Urine,Clean Catch Urine Culture - Preliminary Gram Negative Bacillus 1 Resulted Laboratory Tests 03/02/19 08:00: Random Amikacin Level 15.0 Current Medications Medications (Trade) Dose Ordered Sig/Katie Route PRN Reason Start Time Stop Time Status Last Admin Dose Admin Albuterol/ Ipratropium (Albuterol/ Ipratropium) 3 ml Q4H PRN HHN Shortness of Breath 03/01/19 12:15 03/06/19 12:14 Albuterol/ Ipratropium (Albuterol/ Ipratropium) 3 ml Q6HRT HHN 03/01/19 13:00 03/06/19 12:59 03/02/19 12:46 Amikacin Protocol (Amikacin pharmacy to dose) 1 ea DAILY PRN MISC Per rx protocol 03/01/19 18:30 03/31/19 18:29 Amikacin Sulfate 1000 mg/Sodium Chloride 114 ml @ 114 mls/hr Q36H IV 03/01/19 20:00 03/08/19 19:59 03/01/19 20:17 Cefepime HCl 1 gm/ Dextrose 50 ml @ 100 mls/hr Q12H IVPB 03/01/19 23:00 03/08/19 22:59 03/02/19 11:20 Dextrose (Dextrose 50%) 25 ml Q30M PRN IV Hypoglycemia 03/01/19 12:30 03/31/19 12:29 Dextrose (Dextrose 50%) 50 ml Q30M PRN IV Hypoglycemia 03/01/19 12:30 03/31/19 12:29 Heparin Sodium (Porcine) (Heparin 5000 units/ml) 5,000 units EVERY 12 HOURS SUBQ 03/01/19 21:00 03/31/19 20:59 03/02/19 08:31 Insulin Aspart (NovoLOG) BEFORE MEALS AND HS SUBQ 03/01/19 16:30 03/31/19 16:29 Metronidazole 100 ml @ 100 mls/hr Q8HR IVPB 03/01/19 22:00 03/08/19 21:59 03/02/19 13:57 Phosphorus (Phospha 250 Neutral) 250 mg THREE TIMES A DAY GT 1/23/20 09:00 04/01/19 08:59 03/02/19 12:49 Sodium Chloride 1,000 ml @ 30 mls/hr Q24H IV 03/02/19 12:30 04/01/19 12:29 03/02/19 12:50 Vancomycin HCl (Vanco rx to dose) 1 ea DAILY PRN MISC Per rx protocol 03/01/19 12:15 03/31/19 12:14 Vancomycin HCl 1 gm/Sodium Chloride 275 ml @ 183.708 mls/hr Q24H IVPB 03/02/19 05:00 03/07/19 04:59 03/02/19 05:12 Josemanuel Lopes MD Mar 02, 2019 15:12
[2019-03-02 17:18] LABS: BASOPHILS % (AUTO) 1.4 % (0.0-2.0); EOSINOPHILS % (AUTO) 0.2 % (0.0-3.0); HEMATOCRIT 24.9 % (42.0-52.0); LYMPHOCYTES % (AUTO) 7.8 % (20.0-45.0); MEAN CORPUSCULAR VOLUME 85 FL (80-99); MONOCYTES % (AUTO) 6.9 % (1.0-10.0); NEUTROPHILS % (AUTO) 83.6 % (45.0-75.0); PLATELET COUNT 319 K/UL (150-450); RED BLOOD COUNT 2.93 M/UL (4.70-6.10); RED CELL DISTRIBUTION WIDTH 17.7 % (11.6-14.8); WHITE BLOOD COUNT 17.9 K/UL (4.8-10.8)
[2019-03-02 17:37] LABS: ALANINE AMINOTRANSFERASE 30 U/L (12-78); ALBUMIN 0.7 G/DL (3.4-5.0); ALBUMIN/GLOBULIN RATIO 0.2 (1.0-2.7); ALKALINE PHOSPHATASE 265 U/L (46-116); ANION GAP 6 mmol/L (5-15); ASPARTATE AMINO TRANSFERASE 31 U/L (15-37); BILIRUBIN,TOTAL 0.3 MG/DL (0.2-1.0); BLOOD UREA NITROGEN 35 mg/dL (7-18); CALCIUM 7.3 MG/DL (8.5-10.1); CARBON DIOXIDE 27 MMOL/L (21-32); CHLORIDE 114 MMOL/L (98-107); CREATININE 0.4 MG/DL (0.55-1.30); POTASSIUM 4.9 MMOL/L (3.5-5.1); SODIUM 147 MMOL/L (136-145)
--- NOTE | 2019-03-02 19:26 | NUR ---
HAND-OFF: Report given to NIKI MCCOY, NO DISTRESS NOTED.
--- NOTE | 2019-03-02 19:27 | NUR ---
NURSE NOTES: Received patient from Diane Emmanuel RN . Patient is obtunded, vss, with no acute distress. 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 Skin issues are bilateral arms weep, sacral stage 4, bilateral ischial unstageable, right elbow unstageable, unstageable miranda and bilateral heel DTI. Bed at its lowest position; call light in reach and x3 bed rails are up.
[2019-03-03] VITALS: BP 112/61
[2019-03-03] MEDS: Albuterol/Ipratropium 3ml neb HHN SCH ×4 (00:54→18:52)
[2019-03-03 04:00] VITALS: BP 106/63
[2019-03-03 05:02] LABS: BASOPHILS % (AUTO) 1.2 % (0.0-2.0); EOSINOPHILS % (AUTO) 0.4 % (0.0-3.0); HEMATOCRIT 25.7 % (42.0-52.0); HEMOGLOBIN 8.1 G/DL (14.2-18.0); LYMPHOCYTES % (AUTO) 10.1 % (20.0-45.0); MEAN CORPUSCULAR VOLUME 85 FL (80-99); MONOCYTES % (AUTO) 8.2 % (1.0-10.0); NEUTROPHILS % (AUTO) 80.1 % (45.0-75.0); PLATELET COUNT 307 K/UL (150-450); RED BLOOD COUNT 3.03 M/UL (4.70-6.10); RED CELL DISTRIBUTION WIDTH 17.5 % (11.6-14.8); WHITE BLOOD COUNT 15.2 K/UL (4.8-10.8)
[2019-03-03 05:27] LABS: ALANINE AMINOTRANSFERASE 27 U/L (12-78); ALBUMIN 0.7 G/DL (3.4-5.0); ALBUMIN/GLOBULIN RATIO 0.2 (1.0-2.7); ALKALINE PHOSPHATASE 276 U/L (46-116); ANION GAP 6 mmol/L (5-15); ASPARTATE AMINO TRANSFERASE 27 U/L (15-37); BILIRUBIN,TOTAL 0.3 MG/DL (0.2-1.0); BLOOD UREA NITROGEN 36 mg/dL (7-18); CALCIUM 7.5 MG/DL (8.5-10.1); CARBON DIOXIDE 26 MMOL/L (21-32); CHLORIDE 115 MMOL/L (98-107); CREATININE 0.6 MG/DL (0.55-1.30); POTASSIUM 4.7 MMOL/L (3.5-5.1); SODIUM 147 MMOL/L (136-145)
[2019-03-03] MEDS: Vancomycin 1 GM in NS 275 ML IVPB SCH (05:45)
[2019-03-03] MEDS: NovoLOG Insulin Flexpen SUBQ SCH ×4 (06:30→21:00)
--- NOTE | 2019-03-03 07:15 | NUR ---
NURSE NOTES: Received report from NADINE Gomes. Observed patient in bed, obtunded. Trach-vent with settings AC 12, TV 500, FiO2 28%, PEEP 5. No respiratory distress noted at this time. Left EJ intact and patent with IV fluids infusing at prescribed rate. GT intact and patent, HOB elevated. Mcpherson catheter noted, draining well to gravity. No s/s of pain/discomfort at this time. Will continue to monitor patient.
[2019-03-03 08:00] VITALS: BP 112/62
[2019-03-03] MEDS: Phospha 250 Neutral tab GT SCH ×3 (08:22→17:09)
[2019-03-03] MEDS: Heparin 5000 units/ml inj SUBQ SCH ×2 (08:25→20:30)
[2019-03-03] MEDS: Amikacin 1,000 MG in NS 110 ML IV SCH (09:15)
--- NOTE | 2019-03-03 10:00 | NUR ---
RD ASSESSMENT & RECOMMENDATIONS SEE CARE ACTIVITY FOR COMPLETE ASSESSMENT DAILY ESTIMATED NEEDS: Needs based on Advanced wounds, Underweight, CRITICAL CARE/ 49.5kg 25-35 kcals/kg 0760-0336 total kcals 1.5-2.0 g protein/kg 74-99 g total protein 25-30 mL/kg 8766-8460 total fluid mLs NUTRITION DIAGNOSIS: (1) Increased kcal/prot needs R/T wound healing, sepsis as evidenced by pt w/ advanced wounds, 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 (2) Swallowing difficulty R/T respiratory status as evidenced trach/vent dep and PEG dep (3) Altered GI function R/T pneumatosis, GIB as evidenced by admitted w/ c/o coffee ground emesis, TF initiated at low rate, now @ goal. CURRENT TF:Glucerna 1.5 @50ml/hr x20 hrs ENTERAL NUTRITION RECOMMENDATIONS: Glucerna 1.5 @ 50ml/hr x 20 hrs to provide 1000ml, 1500 kcal, 82.3g pro, 759ml free H2O -> Maintain current TF to meet 100% est needs -> HOB over 30 degrees/ water flush per MD ADDITIONAL RECOMMENDATIONS: * Per SNF: HT=67", [id number] (as of 12/21) Per Dec SNF record -> [id number], pt edematous, wt trending up Rec to RECALIBRATE bed scale for accurate CBW . * Rec to increase water flushes for elev NA (147) * Wound healing: add vit C 500mg BID + Gaetano 1pkt BID
--- NOTE | 2019-03-03 10:09 | Diagnostic Imaging Report ---
Indication: Shortness of breath Technique: One view of the chest Comparison: 03/01/2019 Findings: There is increasing hazy parenchymal consolidation at both lung bases. There are again demonstrated bilateral pleural effusions, appearing stable on the left and likely slightly increased on the right. Tracheostomy remains. The heart size is normal Impression: Increasing bilateral basilar hazy infiltrates and increasing right pleural fluid, over one day. Other stable findings as noted
--- NOTE | 2019-03-03 10:17 | Surgery Progress Note ---
Surgery Progress Note Subjective Additional Comments no acute events wbc improved still very ill appearing labs reviewed Objective Last 24 Hour Vital Signs Date Time Temp Pulse Resp B/P (MAP) Pulse Ox O2 Delivery O2 Flow Rate FiO2 03/03/19 09:00 101 23 28 03/03/19 08:00 28 03/03/19 08:00 Mechanical Ventilator 03/03/19 08:00 97.0 95 20 112/62 (79) 100 03/03/19 07:25 90 12 100 Mechanical Ventilator 28 95 16 28 03/03/19 05:17 105 20 28 03/03/19 04:00 99 03/03/19 04:00 28 03/03/19 04:00 Mechanical Ventilator 03/03/19 04:00 97.1 95 18 106/63 (77) 98 03/03/19 03:10 102 23 28 03/03/19 00:52 105 20 100 Mechanical Ventilator 28 107 20 28 03/03/19 00:00 97.3 106 21 112/61 (78) 98 03/03/19 00:00 Mechanical Ventilator 03/02/19 22:51 107 17 28 03/02/19 21:13 107 19 28 03/02/19 20:00 101 03/02/19 20:00 28 03/02/19 20:00 Mechanical Ventilator 03/02/19 20:00 97.4 108 25 124/57 (79) 100 03/02/19 19:15 104 23 100 Mechanical Ventilator 28 106 23 28 03/02/19 16:41 104 21 Mechanical Ventilator 28 28 03/02/19 16:00 Mechanical Ventilator 03/02/19 16:00 28 03/02/19 16:00 97.0 108 18 110/55 (73) 98 03/02/19 16:00 108 03/02/19 15:30 93 19 Mechanical Ventilator 28 28 03/02/19 12:55 125/78 (94) 03/02/19 12:46 102 19 Mechanical Ventilator 28 28 03/02/19 12:01 Mechanical Ventilator 03/02/19 12:01 28 03/02/19 12:00 95 03/02/19 12:00 97.2 105 16 88/42 (57) 100 03/02/19 11:08 101 20 28 I&O Intake and Output 03/02/19 03/03/19 19:00 07:00 Intake Total 790 ml 100 ml Output Total 280 ml 700 ml Balance 510 ml -600 ml Free Water 150 ml IV Total 240 ml Tube Feeding 400 ml 100 ml Output Urine Total 280 ml 700 ml # Voids 1 # Bowel Movements 2 2 Dressing: saturated Wound: other Drains: other Cardiovascular: RSR Respiratory: decreased breath sounds Abdomen: soft, present bowel sounds, non-distended Extremities: no cyanosis Laboratory Tests Test 03/02/19 16:40 03/03/19 03:05 White Blood Count 17.9 K/UL (4.8-10.8) H 15.2 K/UL (4.8-10.8) H Red Blood Count 2.93 M/UL (4.70-6.10) L 3.03 M/UL (4.70-6.10) L Hemoglobin 8.0 G/DL (14.2-18.0) L 8.1 G/DL (14.2-18.0) L Hematocrit 24.9 % (42.0-52.0) L 25.7 % (42.0-52.0) L Mean Corpuscular Volume 85 FL (80-99) 85 FL (80-99) Mean Corpuscular Hemoglobin 27.4 PG (27.0-31.0) 26.9 PG (27.0-31.0) L Mean Corpuscular Hemoglobin Concent 32.2 G/DL (32.0-36.0) 31.7 G/DL (32.0-36.0) L Red Cell Distribution Width 17.7 % (11.6-14.8) H 17.5 % (11.6-14.8) H Platelet Count 319 K/UL (150-450) 307 K/UL (150-450) Mean Platelet Volume 9.5 FL (6.5-10.1) 10.5 FL (6.5-10.1) H Neutrophils (%) (Auto) 83.6 % (45.0-75.0) H 80.1 % (45.0-75.0) H Lymphocytes (%) (Auto) 7.8 % (20.0-45.0) L 10.1 % (20.0-45.0) L Monocytes (%) (Auto) 6.9 % (1.0-10.0) 8.2 % (1.0-10.0) Eosinophils (%) (Auto) 0.2 % (0.0-3.0) 0.4 % (0.0-3.0) Basophils (%) (Auto) 1.4 % (0.0-2.0) 1.2 % (0.0-2.0) Sodium Level 147 MMOL/L (136-145) H 147 MMOL/L (136-145) H Potassium Level 4.9 MMOL/L (3.5-5.1) 4.7 MMOL/L (3.5-5.1) Chloride Level 114 MMOL/L (98-107) H 115 MMOL/L (98-107) H Carbon Dioxide Level 27 MMOL/L (21-32) 26 MMOL/L (21-32) Anion Gap 6 mmol/L (5-15) 6 mmol/L (5-15) Blood Urea Nitrogen 35 mg/dL (7-18) H 36 mg/dL (7-18) H Creatinine 0.4 MG/DL (0.55-1.30) L 0.6 MG/DL (0.55-1.30) Estimat Glomerular Filtration Rate mL/min (>60) mL/min (>60) Glucose Level 127 MG/DL (74-106) H 154 MG/DL (74-106) H Calcium Level 7.3 MG/DL (8.5-10.1) L 7.5 MG/DL (8.5-10.1) L Total Bilirubin 0.3 MG/DL (0.2-1.0) 0.3 MG/DL (0.2-1.0) Aspartate Amino Transf (AST/SGOT) 31 U/L (15-37) 27 U/L (15-37) Alanine Aminotransferase (ALT/SGPT) 30 U/L (12-78) 27 U/L (12-78) Alkaline Phosphatase 265 U/L (46-116) H 276 U/L (46-116) H Total Protein 3.8 G/DL (6.4-8.2) L 4.6 G/DL (6.4-8.2) L Albumin 0.7 G/DL (3.4-5.0) L 0.7 G/DL (3.4-5.0) L Globulin 3.1 g/dL 3.9 g/dL Albumin/Globulin Ratio 0.2 (1.0-2.7) L 0.2 (1.0-2.7) L Plan Problems: (1) Malnutrition Assessment & Plan: DAILY ESTIMATED NEEDS: Needs based on Advanced wounds, Underweight, CRITICAL CARE/ 49.5kg 25-35 kcals/kg 0678-0374 total kcals 1.5-2.0 g protein/kg 74-99 g total protein 25-30 mL/kg 4147-9882 total fluid mLs NUTRITION DIAGNOSIS: (1) Increased kcal/prot needs R/T wound healing, sepsis as evidenced by pt w/ advanced wounds, 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 (2) Swallowing difficulty R/T respiratory status as evidenced trach/vent dep and PEG dep (3) Altered GI function R/T pneumatosis, GIB as evidenced by admitted w/ c/o coffee ground emesis, TF initiated at low rate, now @ goal. CURRENT TF:Glucerna 1.5 @50ml/hr x20 hrs ENTERAL NUTRITION RECOMMENDATIONS: Glucerna 1.5 @ 50ml/hr x 20 hrs to provide 1000ml, 1500 kcal, 82.3g pro, 759ml free H2O -> Maintain current TF to meet 100% est needs -> HOB over 30 degrees/ water flush per MD ADDITIONAL RECOMMENDATIONS: * Per SNF: HT=67", [id number] (as of 12/21) Per Dec SNF record -> [id number], pt edematous, wt trending up Rec to RECALIBRATE bed scale for accurate CBW . * Rec to increase water flushes for elev NA (147) * Wound healing: add vit C 500mg BID + Gaetano 1pkt BID (2) Failure to thrive in adult (3) Decubitus skin ulcer (4) Sepsis Assessment & Plan: Patient presents with leukocytosis, lactic acidosis, abnormal labs. Altered mental status Continued malnutrition failure to thrive in adult Decubitus skin ulcers Patient evaluated full physical examination completed wounds unlikely etiology of patient's sepsis Micro noted Chest x-ray reviewed Trach in place on support Care plan initiated Discussed with PCP and consultants Thank you for let me participation's care will continue to follow with recommendations Sher Keene Mar 03, 2019 10:17
--- NOTE | 2019-03-03 10:24 | NUR ---
RADIOLOGY DEPT., CHEST X-RAY DONE.-P.DYE
[2019-03-03 12:00] VITALS: BP 101/54
--- NOTE | 2019-03-03 15:01 | NUR ---
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 97.1 HR 94 RR 20 B/P 101/84 AC 12 TV 500 FIO2 28% PEEP 5 WBC 15.2 NA 147 BUN 36 TCK 276 CXR=: Increasing bilateral basilar hazy infiltrates and increasing right pleural fluid,over one day. IS: IVF NS @ 30ML/HR VANCO IV CEFEPIME IV FLAGYL IV AMIKACIN IV ALB HHN HEPARIN SUBC STEP DOWN STATUS
[2019-03-03 16:00] VITALS: BP 117/57
--- NOTE | 2019-03-03 16:30 | NUR ---
NURSE NOTES: Bed bath, linen change, and repositioned patient. Suctioned via trach with scant amount of thin, white sputum noted. No respiratory distress noted. HOB elevated, patient tolerating TF well. Bed locked, alarmed, and in lowest position, side rails up x3, and call light left within reach. Will continue to monitor patient.
[2019-03-03] MEDS: Ascorbic Acid 500mg tab ORAL SCH (17:08)
--- NOTE | 2019-03-03 19:06 | NUR ---
HAND-OFF: Report given to Aditi Weir RN. Endorsed plan of care. Patient in stable condition.
--- NOTE | 2019-03-03 19:08 | NUR ---
NURSE NOTES: Received report from Paula MCCOY. Patient resting in bed. No signs of distress. On vent at prescribed settings, tolerating well. GT feeding running at prescribed rate. Left EJ patent, intact. Safety precautions in place. HOB elevated, bed is locked and lowest position. Call light within reach. Will continue to monitor patient.
--- NOTE | 2019-03-03 19:28 | Pulmonology Progress Note ---
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 SEPSIS: PsA UTI, GNR BSI 2. Lactic acidosis - RESOLVED 3. Tracheostomy status. 4. Dysphagia, status post G-tube. 5. Encephalopathy. 6. Multiple decubitus ulcer. 7. Glaucoma. 8. Hypertension, CAD, CHF with diastolic dysfunction. 9. DNAR. TREATMENT PLAN: 1. Ventilatory support, settings reviewed. 2. Titrate O2. 3. DuoNebs. 4. Abx per ID, follow up cultures. 5. Monitor volumes and renal function, IV fluid hydration. 6. Wound care 7. TF's 8. Heparin subcutaneous for DVT prophylaxis. 9. Benefits Advisor recs 10. DNAR, continue to discuss goals of care, consider transition back to SNF with hospice Subjective Allergies: Coded Allergies: DORZOLAMIDE (Unverified Allergy, Unknown, 12/23/18) LISINOPRIL (Unverified Allergy, Unknown, 12/23/18) TIMOLOL (Unverified Allergy, Unknown, 12/23/18) TIOTROPIUM (Unverified Allergy, Unknown, 12/23/18) Subjective AFVSS PsA in sputum and urine No sig secretions No change in MS Neisha TF WCt better Objective Last 24 Hour Vital Signs Date Time Temp Pulse Resp B/P (MAP) Pulse Ox O2 Delivery O2 Flow Rate FiO2 03/03/19 18:52 88 18 100 Mechanical Ventilator 60.0 28 92 20 28 03/03/19 17:01 93 18 28 03/03/19 16:00 97.0 97 18 117/57 (77) 100 03/03/19 16:00 28 03/03/19 16:00 Mechanical Ventilator 03/03/19 15:30 90 03/03/19 15:28 92 12 28 03/03/19 13:29 84 18 100 Mechanical Ventilator 60.0 28 95 14 28 03/03/19 12:00 97.1 94 20 101/54 (70) 100 03/03/19 12:00 28 03/03/19 12:00 Mechanical Ventilator 03/03/19 11:26 94 03/03/19 11:23 92 21 28 03/03/19 09:00 101 23 28 03/03/19 08:00 28 1/24/20 08:00 Mechanical Ventilator 03/03/19 08:00 97.0 95 20 112/62 (79) 100 03/03/19 07:51 90 03/03/19 07:25 90 12 100 Mechanical Ventilator 28 95 16 28 03/03/19 05:17 105 20 28 03/03/19 04:00 99 03/03/19 04:00 28 03/03/19 04:00 Mechanical Ventilator 03/03/19 04:00 97.1 95 18 106/63 (77) 98 03/03/19 03:10 102 23 28 03/03/19 00:52 105 20 100 Mechanical Ventilator 28 107 20 28 03/03/19 00:00 97.3 106 21 112/61 (78) 98 03/03/19 00:00 Mechanical Ventilator 03/02/19 22:51 107 17 28 03/02/19 21:13 107 19 28 03/02/19 20:00 101 03/02/19 20:00 28 03/02/19 20:00 Mechanical Ventilator 03/02/19 20:00 97.4 108 25 124/57 (79) 100 Intake and Output 03/02/19 03/03/19 19:00 07:00 Intake Total 790 ml 100 ml Output Total 280 ml 700 ml Balance 510 ml -600 ml Free Water 150 ml IV Total 240 ml Tube Feeding 400 ml 100 ml Output Urine Total 280 ml 700 ml # Voids 1 # Bowel Movements 2 2 General Appearance: cachetic HEENT: status post trach Respiratory/Chest: rhonchi Cardiovascular: normal peripheral pulses, normal rate, regular rhythm Abdomen: normal bowel sounds, soft, non tender, no organomegaly, non distended , other - GT Extremities: no cyanosis, no clubbing, no edema, other - wounds Microbiology Date/Time Source Procedure Growth Status 03/01/19 04:10 Blood Blood Culture - Preliminary Gram Negative Bacillus 1 Resulted 03/01/19 03:55 Blood Blood Culture - Preliminary NO GROWTH AFTER 48 HOURS Resulted 03/01/19 07:33 Sputum Gram Stain - Final Resulted 03/01/19 07:33 Sputum Culture - Preliminary Pseudomonas Aeruginosa Resulted 03/01/19 04:17 Nasal Nares MRSA Culture - Final NO METHICILLIN RESISTANT STAPH AUREUS... Complete 03/01/19 03:45 Nasal Nares - Final Complete 03/01/19 03:45 Nasal Nares - Final Complete 03/01/19 03:45 Urine,Clean Catch Urine Culture - Final Pseudomonas Aeruginosa Complete 03/01/19 04:17 Rectum - Final NO CARBAPENEM-RESISTANT ENTEROBACTERI... Complete 03/01/19 04:17 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 Complete Laboratory Tests 03/03/19 03:05: White Blood Count 15.2H, Red Blood Count 3.03L, Hemoglobin 8.1L, Hematocrit 25.7L, Mean Corpuscular Volume 85, Mean Corpuscular Hemoglobin 26.9L, Mean Corpuscular Hemoglobin Concent 31.7L, Red Cell Distribution Width 17.5H, Platelet Count 307, Mean Platelet Volume 10.5H, Neutrophils (%) (Auto) 80.1H, Lymphocytes (%) (Auto) 10.1L, Monocytes (%) (Auto) 8.2, Eosinophils (%) (Auto) 0.4, Basophils (%) (Auto) 1.2, Sodium Level 147H, Potassium Level 4.7, Chloride Level 115H, Carbon Dioxide Level 26, Anion Gap 6, Blood Urea Nitrogen 36H, Creatinine 0.6, Estimat Glomerular Filtration Rate , Glucose Level 154H, Calcium Level 7.5L, Total Bilirubin 0.3, Aspartate Amino Transf (AST/SGOT) 27, Alanine Aminotransferase (ALT/SGPT) 27, Alkaline Phosphatase 276H, Total Protein 4.6L, Albumin 0.7L, Globulin 3.9, Albumin/Globulin Ratio 0.2L Current Medications Medications (Trade) Dose Ordered Sig/Katie Route PRN Reason Start Time Stop Time Status Last Admin Dose Admin Albuterol/ Ipratropium (Albuterol/ Ipratropium) 3 ml Q4H PRN HHN Shortness of Breath 03/01/19 12:15 03/06/19 12:14 Albuterol/ Ipratropium (Albuterol/ Ipratropium) 3 ml Q6HRT HHN 03/01/19 13:00 03/06/19 12:59 03/03/19 18:52 Amikacin Protocol (Amikacin pharmacy to dose) 1 ea DAILY PRN MISC Per rx protocol 03/01/19 18:30 03/31/19 18:29 Amikacin Sulfate 1000 mg/Sodium Chloride 114 ml @ 114 mls/hr Q36H IV 1/22/20 20:00 03/08/19 19:59 03/03/19 09:15 Ascorbic Acid (Vitamin C) 250 mg TWICE A DAY ORAL 03/03/19 18:00 04/02/19 17:59 03/03/19 17:08 Cefepime HCl 1 gm/ Dextrose 50 ml @ 100 mls/hr Q12H IVPB 03/01/19 23:00 03/08/19 22:59 03/03/19 11:20 Dextrose (Dextrose 50%) 25 ml Q30M PRN IV Hypoglycemia 03/01/19 12:30 03/31/19 12:29 Dextrose (Dextrose 50%) 50 ml Q30M PRN IV Hypoglycemia 03/01/19 12:30 03/31/19 12:29 Heparin Sodium (Porcine) (Heparin 5000 units/ml) 5,000 units EVERY 12 HOURS SUBQ 03/01/19 21:00 03/31/19 20:59 03/03/19 08:25 Insulin Aspart (NovoLOG) BEFORE MEALS AND HS SUBQ 03/01/19 16:30 03/31/19 16:29 Metronidazole 100 ml @ 100 mls/hr Q8HR IVPB 03/01/19 22:00 03/08/19 21:59 03/03/19 14:03 Phosphorus (Phospha 250 Neutral) 250 mg THREE TIMES A DAY GT 03/02/19 09:00 04/01/19 08:59 03/03/19 17:09 Sodium Chloride 1,000 ml @ 30 mls/hr Q24H IV 03/02/19 12:30 04/01/19 12:29 03/03/19 11:24 Vancomycin HCl (Vanco rx to dose) 1 ea DAILY PRN MISC Per rx protocol 03/01/19 12:15 03/31/19 12:14 Vancomycin HCl 1 gm/Sodium Chloride 275 ml @ 183.708 mls/hr Q24H IVPB 03/02/19 05:00 03/07/19 04:59 03/03/19 05:45 Zinc Sulfate (Zinc Sulfate) 220 mg DAILY ORAL 03/04/19 09:00 03/14/19 08:59 Josemanuel Lopes MD Mar 03, 2019 19:28
[2019-03-03 20:00] VITALS: BP 124/60
--- NOTE | 2019-03-03 20:58 | Infectious Diseases Prog Note ---
Assessment/Plan Assessment/Plan ASSESSMENT/PLAN; 1. sepsis, gram neg bacteremia, gram neg sepsis, pseudomonas uti/pna, sirs, leukocytosis, multiple wounds - vancomycin, cefepime, amikacin - f/u on cultures and labs, f/u chest x-ray - wound care per surgery and protocol, debridement if indicated, surgery f/u 2. trach, vent and respiratory failure. 3. Dysphagia, G-tube. 4. Wound care protocol. 5. History of decubitus. 6. hypercapnia 7. Blood pressure treatment per primary care team. 8. Depression. 9. Diastolic heart failure. 10. Coronary artery disease. 11. GERD. 12. Glaucoma. 13. GI bleed. 14. Osteoarthritis. 15. BPH. 16. Malnutrition. 17. Allergies to dorzolamide, lisinopril, timolol, tiotropium, Spiriva. 18. Family history is noncontributory. 19. Social history is negative. 20. MAR was noted. 21. Case was discussed with RN. 22. ICU care. 23. Continue treatment per primary consultants. 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 Subjective Constitutional: Reports: fatigue, other - trach and vent ; Denies: fever Respiratory: Reports: shortness of breath Cardiovascular: Denies: chest pain Gastrointestinal/Abdominal: Denies: nausea, vomiting Genitourinary: Reports: other - + kline Neurologic: Reports: weakness Psychiatric: Reports: other - NA Skin: Denies: rash Hematologic: Denies: bleeding Allergies: Coded Allergies: DORZOLAMIDE (Unverified Allergy, Unknown, 12/23/18) LISINOPRIL (Unverified Allergy, Unknown, 12/23/18) TIMOLOL (Unverified Allergy, Unknown, 12/23/18) TIOTROPIUM (Unverified Allergy, Unknown, 12/23/18) Objective Vital Signs Last 24 Hour Vital Signs Date Time Temp Pulse Resp B/P (MAP) Pulse Ox O2 Delivery O2 Flow Rate FiO2 03/03/19 20:00 28 03/03/19 18:52 88 18 100 Mechanical Ventilator 60.0 28 92 20 28 03/03/19 17:01 93 18 28 03/03/19 16:00 97.0 97 18 117/57 (77) 100 03/03/19 16:00 28 03/03/19 16:00 Mechanical Ventilator 03/03/19 15:30 90 1/24/20 15:28 92 12 28 03/03/19 13:29 84 18 100 Mechanical Ventilator 60.0 28 95 14 28 03/03/19 12:00 97.1 94 20 101/54 (70) 100 03/03/19 12:00 28 03/03/19 12:00 Mechanical Ventilator 03/03/19 11:26 94 03/03/19 11:23 92 21 28 03/03/19 09:00 101 23 28 03/03/19 08:00 28 03/03/19 08:00 Mechanical Ventilator 03/03/19 08:00 97.0 95 20 112/62 (79) 100 03/03/19 07:51 90 03/03/19 07:25 90 12 100 Mechanical Ventilator 28 95 16 28 03/03/19 05:17 105 20 28 03/03/19 04:00 99 03/03/19 04:00 28 03/03/19 04:00 Mechanical Ventilator 03/03/19 04:00 97.1 95 18 106/63 (77) 98 03/03/19 03:10 102 23 28 03/03/19 00:52 105 20 100 Mechanical Ventilator 28 107 20 28 03/03/19 00:00 97.3 106 21 112/61 (78) 98 03/03/19 00:00 Mechanical Ventilator 03/02/19 22:51 107 17 28 03/02/19 21:13 107 19 28 Height (Feet): 5 Height (Inches): 7.00 Weight (Pounds): 154 General Appearance: other HEENT: normocephalic, atraumatic, anicteric, no JVD, status post trach Respiratory/Chest: crackles/rales, rhonchi - bilaterally Cardiovascular: normal rate, regular rhythm, no gallop/murmur, no JVD Abdomen: normal bowel sounds, soft, non tender, no organomegaly Genitourinary: other - + kline Extremities: other - no cellulitis Skin: no rash, other - wounds covered Neurologic/Psychiatric: motor weakness, other - opens eyes, lethargic Lymphatic: no neck adenopathy Musculoskeletal: no effusion Objective 03/01/19 - chest x-ray - Procedure: XRAY Chest 1v Indication: Dyspnea Comparison: 03/01/2019 at 02:53 A single view chest radiograph was obtained. Findings: 15:20 Lungs are hyperexpanded. 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 This is probably chronic and due to pleural thickening as the configuration has not changed over several days. Heart size appears stable. Tracheostomy is again noted. Pulmonary vascularity appears mildly prominent as it did previously. IMPRESSION: No significant change from the earlier film 03/03/19 - chest x-ray - Procedure: XRAY Chest 1v Indication: Shortness of breath Technique: One view of the chest Comparison: 03/01/2019 Findings: There is increasing hazy parenchymal consolidation at both lung bases. There are again demonstrated bilateral pleural effusions, appearing stable on the left and likely slightly increased on the right. Tracheostomy remains. The heart size is normal Impression: Increasing bilateral basilar hazy infiltrates and increasing right pleural fluid, over one day. Other stable findings as noted Microbiology Date/Time Source Procedure Growth Status 03/01/19 04:10 Blood Blood Culture - Preliminary Gram Negative Bacillus 1 Resulted 03/01/19 03:55 Blood Blood Culture - Preliminary NO GROWTH AFTER 48 HOURS Resulted 03/01/19 07:33 Sputum Gram Stain - Final Resulted 03/01/19 07:33 Sputum Culture - Preliminary Pseudomonas Aeruginosa Resulted 03/01/19 04:17 Nasal Nares MRSA Culture - Final NO METHICILLIN RESISTANT STAPH AUREUS... Complete 03/01/19 03:45 Nasal Nares - Final Complete 03/01/19 03:45 Nasal Nares - Final Complete 03/01/19 03:45 Urine,Clean Catch Urine Culture - Final Pseudomonas Aeruginosa Complete 03/01/19 04:17 Rectum - Final NO CARBAPENEM-RESISTANT ENTEROBACTERI... Complete 03/01/19 04:17 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 Complete Laboratory Tests Test 03/03/19 03:05 White Blood Count 15.2 K/UL (4.8-10.8) H Red Blood Count 3.03 M/UL (4.70-6.10) L Hemoglobin 8.1 G/DL (14.2-18.0) L Hematocrit 25.7 % (42.0-52.0) L Mean Corpuscular Volume 85 FL (80-99) Mean Corpuscular Hemoglobin 26.9 PG (27.0-31.0) L Mean Corpuscular Hemoglobin Concent 31.7 G/DL (32.0-36.0) L Red Cell Distribution Width 17.5 % (11.6-14.8) H Platelet Count 307 K/UL (150-450) Mean Platelet Volume 10.5 FL (6.5-10.1) H Neutrophils (%) (Auto) 80.1 % (45.0-75.0) H Lymphocytes (%) (Auto) 10.1 % (20.0-45.0) L Monocytes (%) (Auto) 8.2 % (1.0-10.0) Eosinophils (%) (Auto) 0.4 % (0.0-3.0) Basophils (%) (Auto) 1.2 % (0.0-2.0) Sodium Level 147 MMOL/L (136-145) H Potassium Level 4.7 MMOL/L (3.5-5.1) Chloride Level 115 MMOL/L (98-107) H Carbon Dioxide Level 26 MMOL/L (21-32) Anion Gap 6 mmol/L (5-15) Blood Urea Nitrogen 36 mg/dL (7-18) H Creatinine 0.6 MG/DL (0.55-1.30) Estimat Glomerular Filtration Rate mL/min (>60) Glucose Level 154 MG/DL (74-106) H Calcium Level 7.5 MG/DL (8.5-10.1) L Total Bilirubin 0.3 MG/DL (0.2-1.0) Aspartate Amino Transf (AST/SGOT) 27 U/L (15-37) Alanine Aminotransferase (ALT/SGPT) 27 U/L (12-78) Alkaline Phosphatase 276 U/L (46-116) H Total Protein 4.6 G/DL (6.4-8.2) L Albumin 0.7 G/DL (3.4-5.0) L Globulin 3.9 g/dL Albumin/Globulin Ratio 0.2 (1.0-2.7) L Current Medications Medications (Trade) Dose Ordered Sig/Katie Route PRN Reason Start Time Stop Time Status Last Admin Dose Admin Albuterol/ Ipratropium (Albuterol/ Ipratropium) 3 ml Q4H PRN HHN Shortness of Breath 03/01/19 12:15 03/06/19 12:14 Albuterol/ Ipratropium (Albuterol/ Ipratropium) 3 ml Q6HRT HHN 03/01/19 13:00 03/06/19 12:59 03/03/19 18:52 Amikacin Protocol (Amikacin pharmacy to dose) 1 ea DAILY PRN MISC Per rx protocol 03/01/19 18:30 03/31/19 18:29 Amikacin Sulfate 1000 mg/Sodium Chloride 114 ml @ 114 mls/hr Q36H IV 03/01/19 20:00 03/08/19 19:59 03/03/19 09:15 Ascorbic Acid (Vitamin C) 250 mg TWICE A DAY ORAL 03/03/19 18:00 04/02/19 17:59 03/03/19 17:08 Cefepime HCl 1 gm/ Dextrose 50 ml @ 100 mls/hr Q12H IVPB 03/01/19 23:00 03/08/19 22:59 03/03/19 11:20 Dextrose (Dextrose 50%) 25 ml Q30M PRN IV Hypoglycemia 03/01/19 12:30 03/31/19 12:29 Dextrose (Dextrose 50%) 50 ml Q30M PRN IV Hypoglycemia 03/01/19 12:30 03/31/19 12:29 Heparin Sodium (Porcine) (Heparin 5000 units/ml) 5,000 units EVERY 12 HOURS SUBQ 03/01/19 21:00 03/31/19 20:59 03/03/19 20:30 Insulin Aspart (NovoLOG) BEFORE MEALS AND HS SUBQ 03/01/19 16:30 03/31/19 16:29 Metronidazole 100 ml @ 100 mls/hr Q8HR IVPB 03/01/19 22:00 03/08/19 21:59 03/03/19 14:03 Phosphorus (Phospha 250 Neutral) 250 mg THREE TIMES A DAY GT 03/02/19 09:00 04/01/19 08:59 03/03/19 17:09 Sodium Chloride 1,000 ml @ 30 mls/hr Q24H IV 03/02/19 12:30 04/01/19 12:29 03/03/19 11:24 Vancomycin HCl (Vanco rx to dose) 1 ea DAILY PRN MISC Per rx protocol 03/01/19 12:15 03/31/19 12:14 Vancomycin HCl 1 gm/Sodium Chloride 275 ml @ 183.708 mls/hr Q24H IVPB 03/02/19 05:00 03/07/19 04:59 03/03/19 05:45 Zinc Sulfate (Zinc Sulfate) 220 mg DAILY ORAL 03/04/19 09:00 03/14/19 08:59 Randal Pool MD Mar 03, 2019 20:58
[2019-03-03] MEDS: metroNIDAZOLE 500mg tab ORAL SCH (22:19)
[2019-03-04] VITALS: BP 94/54
--- NOTE | 2019-03-04 00:49 | NUR ---
NURSE NOTES: Left message semiconductor lab technician doctor, Dr. Fournier regarding patient's HR fluctuates between 120-130. Waiting for call back. Will continue to monitor patient.
[2019-03-04] MEDS: Albuterol/Ipratropium 3ml neb HHN SCH ×4 (01:00→18:41)
[2019-03-04 04:00] VITALS: BP 111/88
--- NOTE | 2019-03-04 04:29 | NUR ---
NURSE NOTES: Left message to manager provider relations doctor, Dr. Fournier about patient HR fluctuating between 120-150. Patient no signs of distress, asymptomatic. Still waiting for call back. Will continue to monitor patient.
[2019-03-04] MEDS: Vancomycin 1 GM in NS 275 ML IVPB SCH (05:19)
--- NOTE | 2019-03-04 06:19 | NUR ---
NURSE NOTES: Dr. Fournier called back with new orders, noted and carried out. Will continue to monitor
[2019-03-04] MEDS: metroNIDAZOLE 500mg tab ORAL SCH ×3 (06:22→21:48)
[2019-03-04] MEDS: NovoLOG Insulin Flexpen SUBQ SCH ×4 (06:30→23:58)
[2019-03-04 06:59] LABS: BASOPHILS % (AUTO) 2.4 % (0.0-2.0); EOSINOPHILS % (AUTO) 0.4 % (0.0-3.0); HEMATOCRIT 26.3 % (42.0-52.0); HEMOGLOBIN 8.2 G/DL (14.2-18.0); LYMPHOCYTES % (AUTO) 9.5 % (20.0-45.0); MEAN CORPUSCULAR VOLUME 87 FL (80-99); MONOCYTES % (AUTO) 9.6 % (1.0-10.0); NEUTROPHILS % (AUTO) 78.1 % (45.0-75.0); PLATELET COUNT 287 K/UL (150-450); RED BLOOD COUNT 3.03 M/UL (4.70-6.10); RED CELL DISTRIBUTION WIDTH 17.9 % (11.6-14.8); WHITE BLOOD COUNT 12.1 K/UL (4.8-10.8)
--- NOTE | 2019-03-04 07:20 | NUR ---
HAND-OFF: Report given to NADINE Levy. Pt in stable condition.
--- NOTE | 2019-03-04 07:23 | NUR ---
NURSE NOTES: Jasmine from lab reported troponin 0.154. Reported to RN as well.
--- NOTE | 2019-03-04 07:30 | NUR ---
NURSE NOTES: Received report from Jose Solis RN. Patient obtunded, unable to follow commands and make needs known. ST 110s on monitor car operator. Trach to vent with settings of AC 12, TV 500, FiO2 28%, PEEP 5, respirations even and unlabored. GT feeding on hold, no residuals noted, HoB elevated. Mcpherson catheter patent and draining well. Left EJ 18g IV site infusing NS @ 30 cc/hr, asymptomatic. Bed locked in lowest position with side rails up x 3. All needs attended to. Call light within reach. Will continue to monitor.
--- NOTE | 2019-03-04 07:42 | NUR ---
NURSE NOTES: Patient's troponin level of 0.[address] Ford, covering for Dr. Fournier, no new orders received.
[2019-03-04 08:00] VITALS: BP 100/67
[2019-03-04] MEDS: Phospha 250 Neutral tab GT SCH ×3 (09:22→18:59)
[2019-03-04] MEDS: Ascorbic Acid 500mg tab ORAL SCH ×2 (09:22→19:00)
[2019-03-04] MEDS: Zinc Sulfate 220mg cap ORAL SCH (09:22)
[2019-03-04] MEDS: Heparin 5000 units/ml inj SUBQ SCH ×2 (09:23→20:47)
--- NOTE | 2019-03-04 11:31 | Surgery Progress Note ---
Surgery Progress Note Subjective Additional Comments no acute events ill appearing Objective Last 24 Hour Vital Signs Date Time Temp Pulse Resp B/P (MAP) Pulse Ox O2 Delivery O2 Flow Rate FiO2 03/04/19 11:13 118 21 28 03/04/19 09:29 122 22 28 03/04/19 08:00 96.8 113 23 100/67 (78) 100 03/04/19 08:00 Mechanical Ventilator 03/04/19 08:00 28 03/04/19 07:44 117 03/04/19 07:29 119 14 100 Mechanical Ventilator 28 116 22 28 03/04/19 05:01 114 23 28 03/04/19 04:41 119 03/04/19 04:00 Mechanical Ventilator 03/04/19 04:00 97.0 120 20 111/88 (96) 100 03/04/19 04:00 28 03/04/19 03:48 118 24 28 03/04/19 01:00 120 22 100 Mechanical Ventilator 60.0 28 122 20 28 03/04/19 00:00 96.1 114 21 94/54 (67) 100 03/04/19 00:00 Mechanical Ventilator 03/04/19 00:00 117 03/03/19 23:10 106 21 28 03/03/19 21:15 95 18 28 03/03/19 20:00 Mechanical Ventilator 03/03/19 20:00 88 03/03/19 20:00 28 03/03/19 20:00 96.0 100 19 124/60 (81) 100 03/03/19 18:52 88 18 100 Mechanical Ventilator 60.0 28 92 20 28 03/03/19 17:01 93 18 28 03/03/19 16:00 97.0 97 18 117/57 (77) 100 03/03/19 16:00 28 03/03/19 16:00 Mechanical Ventilator 03/03/19 15:30 90 03/03/19 15:28 92 12 28 03/03/19 13:29 84 18 100 Mechanical Ventilator 60.0 28 95 14 28 03/03/19 12:00 97.1 94 20 101/54 (70) 100 03/03/19 12:00 28 03/03/19 12:00 Mechanical Ventilator I&O Intake and Output 03/03/19 03/04/19 19:00 07:00 Intake Total 974 ml 1353.000 ml Output Total 500 ml 300 ml Balance 474 ml 1053.000 ml Free Water 100 ml 50 ml IV Total 474 ml 703.000 ml Tube Feeding 400 ml 600 ml Output Urine Total 500 ml 300 ml # Bowel Movements 2 Dressing: other Wound: other Drains: other Cardiovascular: RSR Respiratory: decreased breath sounds Abdomen: soft, present bowel sounds Extremities: no cyanosis, other Laboratory Tests Test 03/04/19 04:35 03/04/19 06:45 Troponin I 0.154 ng/mL (0.000-0.056) Vancomycin Level Trough 14.7 ug/mL (5.0-12.0) H White Blood Count 12.1 K/UL (4.8-10.8) H Red Blood Count 3.03 M/UL (4.70-6.10) L Hemoglobin 8.2 G/DL (14.2-18.0) L Hematocrit 26.3 % (42.0-52.0) L Mean Corpuscular Volume 87 FL (80-99) Mean Corpuscular Hemoglobin 27.1 PG (27.0-31.0) Mean Corpuscular Hemoglobin Concent 31.3 G/DL (32.0-36.0) L Red Cell Distribution Width 17.9 % (11.6-14.8) H Platelet Count 287 K/UL (150-450) Mean Platelet Volume 9.4 FL (6.5-10.1) Neutrophils (%) (Auto) 78.1 % (45.0-75.0) H Lymphocytes (%) (Auto) 9.5 % (20.0-45.0) L Monocytes (%) (Auto) 9.6 % (1.0-10.0) Eosinophils (%) (Auto) 0.4 % (0.0-3.0) Basophils (%) (Auto) 2.4 % (0.0-2.0) H Plan Problems: (1) Malnutrition Assessment & Plan: DAILY ESTIMATED NEEDS: Needs based on Advanced wounds, Underweight, CRITICAL CARE/ 49.5kg 25-35 kcals/kg 5580-6651 total kcals 1.5-2.0 g protein/kg 74-99 g total protein 25-30 mL/kg 4067-8586 total fluid mLs NUTRITION DIAGNOSIS: (1) Increased kcal/prot needs R/T wound healing, sepsis as evidenced by pt w/ advanced wounds, 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 (2) Swallowing difficulty R/T respiratory status as evidenced trach/vent dep and PEG dep (3) Altered GI function R/T pneumatosis, GIB as evidenced by admitted w/ c/o coffee ground emesis, TF initiated at low rate, now @ goal. CURRENT TF:Glucerna 1.5 @50ml/hr x20 hrs ENTERAL NUTRITION RECOMMENDATIONS: Glucerna 1.5 @ 50ml/hr x 20 hrs to provide 1000ml, 1500 kcal, 82.3g pro, 759ml free H2O -> Maintain current TF to meet 100% est needs -> HOB over 30 degrees/ water flush per MD ADDITIONAL RECOMMENDATIONS: * Per SNF: HT=67", SB=[id number] (as of 12/21) Per Dec SNF record -> [id number], pt edematous, wt trending up Rec to RECALIBRATE bed scale for accurate CBW . * Rec to increase water flushes for elev NA (147) * Wound healing: add vit C 500mg BID + Gaetano 1pkt BID (2) Failure to thrive in adult (3) Decubitus skin ulcer (4) Sepsis Assessment & Plan: Patient presents with leukocytosis, lactic acidosis, abnormal labs. Altered mental status Continued malnutrition failure to thrive in adult Decubitus skin ulcers Patient evaluated full physical examination completed wounds unlikely etiology of patient's sepsis Micro noted Chest x-ray reviewed Trach in place on support Care plan initiated Discussed with PCP and consultants recommend SNF with hospice Thank you for let me participation's care will continue to follow with recommendations Sher Keene Mar 04, 2019 11:31
[2019-03-04 12:00] VITALS: BP 110/63
--- NOTE | 2019-03-04 13:06 | NUR ---
NURSE NOTES: Dr. David called, on-call for Dr. Lopes, d/t patient's heart rate increasing to 150s. Order for NS 1L bolus given, order read back and verified, carried out. Will continue to monitor.
[2019-03-04] MEDS ORDERED: NS 500ML ONE (13:24)
[2019-03-04] MEDS ORDERED: Tubing IV Secondary IV ONE (13:24)
--- NOTE | 2019-03-04 15:37 | NUR ---
NURSE NOTES: Patient's troponin level and heart rhythm reported to Dr. Melendez at bedside. Order for 1/2 NS @ 75 cc/hr initiated
[2019-03-04 16:00] VITALS: BP 104/62
--- NOTE | 2019-03-04 19:18 | NUR ---
NURSE NOTES: Patient's blood glucose noted at 67, tolerating tube feedings, no residuals noted. HoB elevated. PRN D50 given per protocol via peripheral IV site. Patient's blood glucose increased to [address] David notified, no new orders received.
--- NOTE | 2019-03-04 19:30 | NUR ---
HAND-OFF: Report given to Peri Jones RN.
--- NOTE | 2019-03-04 19:50 | NUR ---
NURSE NOTES: LE; PATIENT ASLEEP STATUS, ON TRACH TO VENT, AC 12/TV 500/FIO2 28%/PEEP 5, O2 SATURATION 100% NOTED, G TUBE INTACT AND PATENT, ONGOING GLUCERNA 1.5 AT 50ML/HR, NO RESIDUE NOTED, F/C INTACT AND PATENT DARK YELLOW URINE OUTED, PERIPHERAL LINE TO LEFT EJ, INTACT AND PATEN, ONGOING 0.45% NS AT 75ML/HR, WEEPING FROM BOTH ARM, ON P200 BED, MADE LOWER BED POSITION, ON BED ALARM AND LOCKED, CALL LIGHT WITHIN REACH, WILL CONTINUE TO MONITOR.
[2019-03-04 20:00] VITALS: BP 98/59
[2019-03-04] MEDS: Amikacin 1,000 MG in NS 110 ML IV SCH (20:47)
--- NOTE | 2019-03-04 22:15 | Pulmonology Progress Note ---
Assessment/Plan Assessment/Plan ASSESSMENT: 1. SEPSIS: PsA UTI, GNR BSI 2. Lactic acidosis - RESOLVED 3. Tracheostomy status. 4. Dysphagia, status post G-tube. 5. Encephalopathy. 6. Multiple decubitus ulcer. 7. Glaucoma. 8. Hypertension, CAD, CHF with diastolic dysfunction. 9. DNAR. TREATMENT PLAN: 1. Ventilatory support, settings reviewed. no wean 2. Titrate O2. 3. DuoNebs. 4. Abx per ID, follow up cultures. 5. Monitor volumes and renal function, IV fluid hydration. 6. Wound care 7. TF's 8. Heparin subcutaneous for DVT prophylaxis. 9. Target Man recs 10. DNAR, continue to discuss goals of care, consider transition back to SNF with hospice Subjective ROS Limited/Unobtainable: Yes Allergies: Coded Allergies: DORZOLAMIDE (Unverified Allergy, Unknown, 12/23/18) LISINOPRIL (Unverified Allergy, Unknown, 12/23/18) TIMOLOL (Unverified Allergy, Unknown, 12/23/18) TIOTROPIUM (Unverified Allergy, Unknown, 12/23/18) Subjective obtunded on the vent toelrating tf no bleeding no reports of nv cachetic trach and peg Objective Last 24 Hour Vital Signs Date Time Temp Pulse Resp B/P (MAP) Pulse Ox O2 Delivery O2 Flow Rate FiO2 03/04/19 20:54 104 23 28 03/04/19 18:41 107 22 100 Mechanical Ventilator 28 110 22 28 03/04/19 16:58 115 23 28 03/04/19 16:00 97.7 113 14 104/62 (76) 100 03/04/19 16:00 28 03/04/19 16:00 Mechanical Ventilator 03/04/19 15:32 121 03/04/19 14:58 115 19 28 03/04/19 13:29 113 18 100 Mechanical Ventilator 28 114 20 28 03/04/19 12:00 28 03/04/19 12:00 Mechanical Ventilator 03/04/19 12:00 121 03/04/19 12:00 97.7 118 23 110/63 (79) 100 03/04/19 11:13 118 21 28 03/04/19 09:29 122 22 28 03/04/19 08:00 96.8 113 23 100/67 (78) 100 03/04/19 08:00 Mechanical Ventilator 03/04/19 08:00 28 03/04/19 07:44 117 03/04/19 07:29 119 14 100 Mechanical Ventilator 28 116 22 28 03/04/19 05:01 114 23 28 03/04/19 04:41 119 03/04/19 04:00 Mechanical Ventilator 03/04/19 04:00 97.0 120 20 111/88 (96) 100 03/04/19 04:00 28 03/04/19 03:48 118 24 28 03/04/19 01:00 120 22 100 Mechanical Ventilator 60.0 28 122 20 28 03/04/19 00:00 96.1 114 21 94/54 (67) 100 03/04/19 00:00 Mechanical Ventilator 03/04/19 00:00 117 03/03/19 23:10 106 21 28 Intake and Output 03/03/19 03/04/19 19:00 07:00 Intake Total 974 ml 1353.000 ml Output Total 500 ml 300 ml Balance 474 ml 1053.000 ml Free Water 100 ml 50 ml IV Total 474 ml 703.000 ml Tube Feeding 400 ml 600 ml Output Urine Total 500 ml 300 ml # Bowel Movements 2 General Appearance: cachetic Respiratory/Chest: crackles/rales, rhonchi Cardiovascular: murmur systolic Abdomen: soft, non tender, no organomegaly Neurologic/Psychiatric: disoriented, unresponsiveness Laboratory Tests 03/04/19 04:35: Troponin I 0.154H, Vancomycin Level Trough 14.7H 03/04/19 06:45: White Blood Count 12.1H, Red Blood Count 3.03L, Hemoglobin 8.2L, Hematocrit 26.3L, Mean Corpuscular Volume 87, Mean Corpuscular Hemoglobin 27.1, Mean Corpuscular Hemoglobin Concent 31.3L, Red Cell Distribution Width 17.9H, Platelet Count 287, Mean Platelet Volume 9.4, Neutrophils (%) (Auto) 78.1H, Lymphocytes (%) (Auto) 9.5L, Monocytes (%) (Auto) 9.6, Eosinophils (%) (Auto) 0.4, Basophils (%) (Auto) 2.4H 03/04/19 19:40: Glucose Level 143H Current Medications Medications (Trade) Dose Ordered Sig/Katie Route PRN Reason Start Time Stop Time Status Last Admin Dose Admin Acetaminophen (Tylenol) 650 mg Q4H PRN GT Mild Pain/Temp > 100.5 03/04/19 06:30 04/03/19 06:29 Albuterol/ Ipratropium (Albuterol/ Ipratropium) 3 ml Q4H PRN HHN Shortness of Breath 03/01/19 12:15 03/06/19 12:14 Albuterol/ Ipratropium (Albuterol/ Ipratropium) 3 ml Q6HRT HHN 03/01/19 13:00 03/06/19 12:59 03/04/19 18:41 Amikacin Protocol (Amikacin pharmacy to dose) 1 ea DAILY PRN MISC Per rx protocol 03/01/19 18:30 03/31/19 18:29 Amikacin Sulfate 1000 mg/Sodium Chloride 114 ml @ 114 mls/hr Q36H IV 03/01/19 20:00 03/08/19 19:59 03/04/19 20:47 Ascorbic Acid (Vitamin C) 250 mg TWICE A DAY ORAL 03/03/19 18:00 04/02/19 17:59 03/04/19 19:00 Cefepime HCl 1 gm/ Dextrose 50 ml @ 100 mls/hr Q12H IVPB 03/01/19 23:00 03/08/19 22:59 03/04/19 11:14 Dextrose (Dextrose 50%) 25 ml Q30M PRN IV Hypoglycemia 03/01/19 12:30 03/31/19 12:29 03/04/19 18:50 Dextrose (Dextrose 50%) 50 ml Q30M PRN IV Hypoglycemia 03/01/19 12:30 03/31/19 12:29 Heparin Sodium (Porcine) (Heparin 5000 units/ml) 5,000 units EVERY 12 HOURS SUBQ 03/01/19 21:00 03/31/19 20:59 03/04/19 20:47 Insulin Aspart (NovoLOG) EVERY 6 HOURS SUBQ 03/04/19 18:00 03/31/19 16:29 Metronidazole (Flagyl) 500 mg EVERY 8 HOURS ORAL 03/03/19 22:00 03/10/19 21:59 03/04/19 21:48 Phosphorus (Phospha 250 Neutral) 250 mg THREE TIMES A DAY GT 03/02/19 09:00 04/01/19 08:59 03/04/19 18:59 Sodium Chloride 1,000 ml @ 75 mls/hr [id number] IV 03/04/19 15:30 04/03/19 15:29 03/04/19 15:37 Vancomycin HCl (Vanco rx to dose) 1 ea DAILY PRN MISC Per rx protocol 03/01/19 12:15 03/31/19 12:14 Vancomycin HCl 1 gm/Sodium Chloride 275 ml @ 183.708 mls/hr Q24H IVPB 03/02/19 05:00 03/07/19 04:59 03/04/19 05:19 Zinc Sulfate (Zinc Sulfate) 220 mg DAILY ORAL 03/04/19 09:00 03/14/19 08:59 03/04/19 09:22 Emma Ramesh DO Mar 04, 2019 22:15
[2019-03-05] VITALS: BP_SYST 104; BP_SYST 114; BP_DIAS 54; BP_DIAS 55
--- NOTE | 2019-03-05 00:10 | NUR ---
NURSE NOTES: ORAL CARE AND REPOSITIONED, APPLIED BEAR HUGGER DUE TO TEMP 95.5F BY AXILLARY, WILL CONTINUE TO MONITOR.
[2019-03-05] MEDS: Albuterol/Ipratropium 3ml neb HHN SCH ×4 (00:39→18:37)
[2019-03-05 04:00] VITALS: BP 98/56
--- NOTE | 2019-03-05 04:10 | NUR ---
NURSE NOTES: LE: MORNING CARE WAS DONE.
[2019-03-05] MEDS: Acetaminophen 650mg/20.3ml GT PRN (04:29)
[2019-03-05] MEDS: Vancomycin 1 GM in NS 275 ML IVPB SCH (04:31)
[2019-03-05] MEDS: NovoLOG Insulin Flexpen SUBQ SCH ×3 (05:47→18:00)
[2019-03-05] MEDS: metroNIDAZOLE 500mg tab ORAL SCH ×3 (05:47→21:45)
--- NOTE | 2019-03-05 06:12 | NUR ---
NURSE NOTES: ACCORDING TO THE CHARGE NURSE, PT'S HEART RATE 136/MIN, A-FLUTTER WITH RVR. BP 78/37 MMHG WAS NOTED.
--- NOTE | 2019-03-05 06:40 | NUR ---
NURSE NOTES: CONVERTED ST AND A-FLUTTER THAT CALLED DR. SHER, LEFT MESSAGE BY KIRSTIE/ALFREDA.
--- NOTE | 2019-03-05 07:09 | NUR ---
HAND-OFF: Report given to NADINE CAPONE.
--- NOTE | 2019-03-05 07:10 | NUR ---
NURSE NOTES: Received bedside report from Gwyn MCCOY. Pt. in bed, obtunded. On mech. vent with setting AC 12/VT 500/Fi O2 28%/P 5. No grimacing noted. F/C in placed patent/intact draining yellow colored urine. HOB elevated at all times. On GTF Glucerna 1.5 at 50cc/hr. Off at present with order. Noted bilateral arm edematous weeping. IV site at left AC #18g. in placed patent/intact running 1/2 NS at 75cc/hr. Bed in low position, locked. Call light within reach. Will cont. to monitor.
[2019-03-05 08:00] VITALS: BP 115/98
--- NOTE | 2019-03-05 08:09 | NUR ---
NURSE NOTES: Called and spoke with Dr. Singh regarding Atrial flutter at 172 bpm pt. DNR/DNI and told RN he will text Dr. Melendez regarding this matter. Will cont. to monitor.
[2019-03-05] MEDS ORDERED: dilTIAZem HCl 25mg/5ml Inj IVP SCH (09:45)
--- NOTE | 2019-03-05 09:46 | NUR ---
NURSE NOTES: Received T.O from Dr. Melendez for Cardizem 15mg. IVP x 1 and Cardizem 60mg. q6 hrs. via GT. Order carried out.
[2019-03-05] MEDS: Ascorbic Acid 500mg tab ORAL SCH ×2 (09:58→18:40)
[2019-03-05] MEDS: Phospha 250 Neutral tab GT SCH ×3 (09:58→18:40)
[2019-03-05] MEDS: Zinc Sulfate 220mg cap ORAL SCH (09:58)
[2019-03-05] MEDS: Heparin 5000 units/ml inj SUBQ SCH ×2 (10:00→21:45)
--- NOTE | 2019-03-05 11:33 | Surgery Progress Note ---
Surgery Progress Note Subjective Additional Comments no acute events comfortable stable Objective Last 24 Hour Vital Signs Date Time Temp Pulse Resp B/P (MAP) Pulse Ox O2 Delivery O2 Flow Rate FiO2 03/05/19 10:40 111 20 28 03/05/19 09:58 129 115/98 03/05/19 08:51 129 21 28 03/05/19 08:05 135 03/05/19 08:00 97.0 125 19 115/98 (104) 100 03/05/19 08:00 28 03/05/19 06:45 125 23 100 Mechanical Ventilator 28 122 24 28 03/05/19 04:33 131 24 28 03/05/19 04:00 Mechanical Ventilator 03/05/19 04:00 97.7 128 18 98/56 (70) 100 03/05/19 04:00 142 03/05/19 04:00 28 03/05/19 02:47 125 23 28 03/05/19 01:00 98.1 03/05/19 00:39 111 25 100 Mechanical Ventilator 28 114 22 28 03/05/19 00:00 Mechanical Ventilator 03/05/19 00:00 28 03/05/19 00:00 95.5 117 14 104/55 (71) 100 03/04/19 23:36 116 03/04/19 22:36 110 22 28 03/04/19 20:54 104 23 28 03/04/19 20:00 Mechanical Ventilator 03/04/19 20:00 28 03/04/19 20:00 97.5 119 14 98/59 (72) 100 03/04/19 19:55 119 03/04/19 18:41 107 22 100 Mechanical Ventilator 28 110 22 28 03/04/19 16:58 115 23 28 03/04/19 16:00 97.7 113 14 104/62 (76) 100 03/04/19 16:00 28 03/04/19 16:00 Mechanical Ventilator 03/04/19 15:32 121 03/04/19 14:58 115 19 28 03/04/19 13:29 113 18 100 Mechanical Ventilator 28 114 20 28 03/04/19 12:00 28 03/04/19 12:00 Mechanical Ventilator 03/04/19 12:00 121 03/04/19 12:00 97.7 118 23 110/63 (79) 100 I&O Intake and Output 03/04/19 03/05/19 19:00 07:00 Intake Total 2974.75 ml 1999 ml Output Total 525 ml 400 ml Balance 2449.75 ml 1599 ml Free Water 0 ml IV Total 2274.75 ml 1339 ml Tube Feeding 400 ml 570 ml Other 300 ml 90 ml Output Urine Total 525 ml 400 ml # Bowel Movements 2 2 Dressing: other Wound: other Drains: other Cardiovascular: RSR Respiratory: decreased breath sounds Abdomen: soft, present bowel sounds Extremities: no edema, no cyanosis, other Laboratory Tests Test 03/04/19 19:40 Glucose Level 143 MG/DL (74-106) H Plan Problems: (1) Malnutrition Assessment & Plan: DAILY ESTIMATED NEEDS: Needs based on Advanced wounds, Underweight, CRITICAL CARE/ 49.5kg 25-35 kcals/kg 9450-3805 total kcals 1.5-2.0 g protein/kg 74-99 g total protein 25-30 mL/kg 2821-0511 total fluid mLs NUTRITION DIAGNOSIS: (1) Increased kcal/prot needs R/T wound healing, sepsis as evidenced by pt w/ advanced wounds, 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 (2) Swallowing difficulty R/T respiratory status as evidenced trach/vent dep and PEG dep (3) Altered GI function R/T pneumatosis, GIB as evidenced by admitted w/ c/o coffee ground emesis, TF initiated at low rate, now @ goal. CURRENT TF:Glucerna 1.5 @50ml/hr x20 hrs ENTERAL NUTRITION RECOMMENDATIONS: Glucerna 1.5 @ 50ml/hr x 20 hrs to provide 1000ml, 1500 kcal, 82.3g pro, 759ml free H2O -> Maintain current TF to meet 100% est needs -> HOB over 30 degrees/ water flush per MD ADDITIONAL RECOMMENDATIONS: * Per SNF: HT=67", [id number] (as of 12/21) Per Dec SNF record -> [id number], pt edematous, wt trending up Rec to RECALIBRATE bed scale for accurate CBW . * Rec to increase water flushes for elev NA (147) * Wound healing: add vit C 500mg BID + Gaetano 1pkt BID (2) Failure to thrive in adult (3) Decubitus skin ulcer (4) Sepsis Assessment & Plan: Patient presents with leukocytosis, lactic acidosis, abnormal labs. Altered mental status Continued malnutrition failure to thrive in adult Decubitus skin ulcers Patient evaluated full physical examination completed wounds unlikely etiology of patient's sepsis Micro noted Chest x-ray reviewed Trach in place on support Care plan initiated Discussed with PCP and consultants recommend SNF with hospice Thank you for let me participation's care will continue to follow with recommendations Sher Keene Mar 05, 2019 11:33
[2019-03-05 12:00] VITALS: BP 106/61
[2019-03-05] MEDS: dilTIAZem HCl 60mg tab GT SCH ×2 (12:10→18:00)
[2019-03-05] MEDS ORDERED: Tubing IV Secondary IV ONE (13:27)
[2019-03-05 16:00] VITALS: BP 97/51
[2019-03-05 16:23] LABS: BASOPHILS % (AUTO) 2.5 % (0.0-2.0); EOSINOPHILS % (AUTO) 0.4 % (0.0-3.0); HEMATOCRIT 26.8 % (42.0-52.0); HEMOGLOBIN 8.3 G/DL (14.2-18.0); LYMPHOCYTES % (AUTO) 17.6 % (20.0-45.0); MEAN CORPUSCULAR VOLUME 85 FL (80-99); MONOCYTES % (AUTO) 12.1 % (1.0-10.0); NEUTROPHILS % (AUTO) 67.4 % (45.0-75.0); PLATELET COUNT 269 K/UL (150-450); RED BLOOD COUNT 3.13 M/UL (4.70-6.10); RED CELL DISTRIBUTION WIDTH 18.5 % (11.6-14.8); WHITE BLOOD COUNT 12.2 K/UL (4.8-10.8)
[2019-03-05 16:31] LABS: ALANINE AMINOTRANSFERASE 31 U/L (12-78); ALBUMIN 0.7 G/DL (3.4-5.0); ALBUMIN/GLOBULIN RATIO 0.2 (1.0-2.7); ALKALINE PHOSPHATASE 291 U/L (46-116); ANION GAP 5 mmol/L (5-15); ASPARTATE AMINO TRANSFERASE 35 U/L (15-37); BILIRUBIN,TOTAL 0.4 MG/DL (0.2-1.0); BLOOD UREA NITROGEN 40 mg/dL (7-18); CALCIUM 6.8 MG/DL (8.5-10.1); CARBON DIOXIDE 26 MMOL/L (21-32); CHLORIDE 118 MMOL/L (98-107); CREATININE 0.5 MG/DL (0.55-1.30); SODIUM 149 MMOL/L (136-145)
--- NOTE | 2019-03-05 16:38 | NUR ---
NURSE NOTES: Called Dr. Melendez regarding critical level result of K+ 6.0 and Troponin 0.534 awaiting for response.
--- NOTE | 2019-03-05 16:52 | Infectious Diseases Prog Note ---
Assessment/Plan Assessment/Plan ASSESSMENT/PLAN; 1. sepsis, pseudomonas bacteremia, gram neg sepsis, pseudomonas uti/pna, sirs, leukocytosis, multiple wounds - vancomycin, cefepime, amikacin, flagyl - day # 5 abx - f/u on cultures and labs, f/u chest x-ray - wound care per surgery and protocol, debridement if indicated, surgery f/u 2. trach, vent and respiratory failure. 3. Dysphagia, G-tube. 4. Wound care protocol. 5. History of decubitus. 6. hypercapnia 7. Blood pressure treatment per primary care team. 8. Depression. 9. Diastolic heart failure. 10. Coronary artery disease. 11. GERD. 12. Glaucoma. 13. GI bleed. 14. Osteoarthritis. 15. BPH. 16. Malnutrition. 17. Allergies to dorzolamide, lisinopril, timolol, tiotropium, Spiriva. 18. Family history is noncontributory. 19. Social history is negative. 20. MAR was noted. 21. Case was discussed with RN. 22. ICU care. 23. Continue treatment per primary consultants. 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 Subjective Constitutional: Reports: fatigue, other - trach and vent; Denies: fever HEENT: Reports: congestion Respiratory: Reports: shortness of breath Cardiovascular: Reports: other - no pressors Gastrointestinal/Abdominal: Denies: nausea, vomiting, diarrhea Genitourinary: Reports: other - + kline Psychiatric: Reports: other - na Skin: Denies: rash Hematologic: Denies: bleeding Musculoskeletal: Reports: other - na Allergies: Coded Allergies: DORZOLAMIDE (Unverified Allergy, Unknown, 12/23/18) LISINOPRIL (Unverified Allergy, Unknown, 12/23/18) TIMOLOL (Unverified Allergy, Unknown, 12/23/18) TIOTROPIUM (Unverified Allergy, Unknown, 12/23/18) Objective Vital Signs Last 24 Hour Vital Signs Date Time Temp Pulse Resp B/P (MAP) Pulse Ox O2 Delivery O2 Flow Rate FiO2 03/05/19 15:32 119 26 28 03/05/19 13:37 103 22 100 Mechanical Ventilator 28 106 21 28 03/05/19 12:10 110 106/61 03/05/19 12:00 97.0 110 17 106/61 (76) 100 03/05/19 12:00 114 03/05/19 12:00 Mechanical Ventilator 03/05/19 12:00 28 03/05/19 10:40 111 20 28 03/05/19 09:58 129 115/98 03/05/19 08:51 129 21 28 03/05/19 08:05 135 03/05/19 08:00 Mechanical Ventilator 03/05/19 08:00 97.0 125 19 115/98 (104) 100 03/05/19 08:00 28 03/05/19 06:45 125 23 100 Mechanical Ventilator 28 122 24 28 03/05/19 04:33 131 24 28 03/05/19 04:00 Mechanical Ventilator 03/05/19 04:00 97.7 128 18 98/56 (70) 100 03/05/19 04:00 142 03/05/19 04:00 28 03/05/19 02:47 125 23 28 03/05/19 01:00 98.1 03/05/19 00:39 111 25 100 Mechanical Ventilator 28 114 22 28 03/05/19 00:00 Mechanical Ventilator 03/05/19 00:00 28 03/05/19 00:00 95.5 117 14 104/55 (71) 100 03/04/19 23:36 116 03/04/19 22:36 110 22 28 03/04/19 20:54 104 23 28 03/04/19 20:00 Mechanical Ventilator 03/04/19 20:00 28 03/04/19 20:00 97.5 119 14 98/59 (72) 100 03/04/19 19:55 119 03/04/19 18:41 107 22 100 Mechanical Ventilator 28 110 22 28 03/04/19 16:58 115 23 28 Height (Feet): 5 Height (Inches): 7.00 Weight (Pounds): 154 General Appearance: other - weak, opens eyes, trach and vent HEENT: normocephalic, atraumatic, no JVD, status post trach Respiratory/Chest: crackles/rales, rhonchi - bilaterally Cardiovascular: normal rate, regular rhythm, no gallop/murmur, no JVD Abdomen: normal bowel sounds, soft, non tender, no organomegaly, non distended Genitourinary: other - + kline Extremities: no cyanosis Skin: no rash, ulcers - wounds covered Neurologic/Psychiatric: motor weakness, other - opens eyes but lethargic Lymphatic: no neck adenopathy Musculoskeletal: no effusion Objective 03/01/19 - chest x-ray - Procedure: XRAY Chest 1v Indication: Dyspnea Comparison: 03/01/2019 at 02:53 A single view chest radiograph was obtained. Findings: 15:20 Lungs are hyperexpanded. 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 This is probably chronic and due to pleural thickening as the configuration has not changed over several days. Heart size appears stable. Tracheostomy is again noted. Pulmonary vascularity appears mildly prominent as it did previously. IMPRESSION: No significant change from the earlier film 03/03/19 - chest x-ray - Procedure: XRAY Chest 1v Indication: Shortness of breath Technique: One view of the chest Comparison: 03/01/2019 Findings: There is increasing hazy parenchymal consolidation at both lung bases. There are again demonstrated bilateral pleural effusions, appearing stable on the left and likely slightly increased on the right. Tracheostomy remains. The heart size is normal Impression: Increasing bilateral basilar hazy infiltrates and increasing right pleural fluid, over one day. Other stable findings as noted Laboratory Tests Test 03/04/19 19:40 03/05/19 15:30 Glucose Level 143 MG/DL (74-106) H 92 MG/DL (74-106) White Blood Count 12.2 K/UL (4.8-10.8) H Red Blood Count 3.13 M/UL (4.70-6.10) L Hemoglobin 8.3 G/DL (14.2-18.0) L Hematocrit 26.8 % (42.0-52.0) L Mean Corpuscular Volume 85 FL (80-99) Mean Corpuscular Hemoglobin 26.5 PG (27.0-31.0) L Mean Corpuscular Hemoglobin Concent 31.0 G/DL (32.0-36.0) L Red Cell Distribution Width 18.5 % (11.6-14.8) H Platelet Count 269 K/UL (150-450) Mean Platelet Volume 9.6 FL (6.5-10.1) Neutrophils (%) (Auto) 67.4 % (45.0-75.0) Lymphocytes (%) (Auto) 17.6 % (20.0-45.0) L Monocytes (%) (Auto) 12.1 % (1.0-10.0) H Eosinophils (%) (Auto) 0.4 % (0.0-3.0) Basophils (%) (Auto) 2.5 % (0.0-2.0) H Sodium Level 149 MMOL/L (136-145) H Potassium Level 6.0 MMOL/L (3.5-5.1) *H Chloride Level 118 MMOL/L (98-107) H Carbon Dioxide Level 26 MMOL/L (21-32) Anion Gap 5 mmol/L (5-15) Blood Urea Nitrogen 40 mg/dL (7-18) H Creatinine 0.5 MG/DL (0.55-1.30) L Estimat Glomerular Filtration Rate mL/min (>60) Calcium Level 6.8 MG/DL (8.5-10.1) L Magnesium Level 2.6 MG/DL (1.8-2.4) H Total Bilirubin 0.4 MG/DL (0.2-1.0) Aspartate Amino Transf (AST/SGOT) 35 U/L (15-37) Alanine Aminotransferase (ALT/SGPT) 31 U/L (12-78) Alkaline Phosphatase 291 U/L (46-116) H Troponin I 0.534 ng/mL (0.000-0.056) Pro-B-Type Natriuretic Peptide 95346 pg/mL (0-125) H Total Protein 3.9 G/DL (6.4-8.2) L Albumin 0.7 G/DL (3.4-5.0) L Globulin 3.2 g/dL Albumin/Globulin Ratio 0.2 (1.0-2.7) L Current Medications Medications (Trade) Dose Ordered Sig/Katie Route PRN Reason Start Time Stop Time Status Last Admin Dose Admin Acetaminophen (Tylenol) 650 mg Q4H PRN GT Mild Pain/Temp > 100.5 03/04/19 06:30 04/03/19 06:29 03/05/19 04:29 Albuterol/ Ipratropium (Albuterol/ Ipratropium) 3 ml Q4H PRN HHN Shortness of Breath 03/01/19 12:15 03/06/19 12:14 Albuterol/ Ipratropium (Albuterol/ Ipratropium) 3 ml Q6HRT HHN 03/01/19 13:00 03/06/19 12:59 03/05/19 13:39 Amikacin Protocol (Amikacin pharmacy to dose) 1 ea DAILY PRN MISC Per rx protocol 03/01/19 18:30 03/31/19 18:29 Amikacin Sulfate 1000 mg/Sodium Chloride 114 ml @ 114 mls/hr Q36H IV 03/01/19 20:00 03/08/19 19:59 03/04/19 20:47 Ascorbic Acid (Vitamin C) 250 mg TWICE A DAY ORAL 03/03/19 18:00 04/02/19 17:59 03/05/19 09:58 Cefepime HCl 1 gm/ Dextrose 50 ml @ 100 mls/hr Q12H IVPB 03/01/19 23:00 03/08/19 22:59 03/05/19 12:03 Dextrose (Dextrose 50%) 25 ml Q30M PRN IV Hypoglycemia 03/01/19 12:30 03/31/19 12:29 03/04/19 18:50 Dextrose (Dextrose 50%) 50 ml Q30M PRN IV Hypoglycemia 03/01/19 12:30 03/31/19 12:29 Diltiazem HCl (Cardizem) 60 mg EVERY 6 HOURS GT 03/05/19 12:00 04/04/19 11:59 03/05/19 12:10 Heparin Sodium (Porcine) (Heparin 5000 units/ml) 5,000 units EVERY 12 HOURS SUBQ 03/01/19 21:00 03/31/19 20:59 03/05/19 10:00 Insulin Aspart (NovoLOG) EVERY 6 HOURS SUBQ 03/04/19 18:00 03/31/19 16:29 Metronidazole (Flagyl) 500 mg EVERY 8 HOURS ORAL 03/03/19 22:00 03/10/19 21:59 03/05/19 15:13 Phosphorus (Phospha 250 Neutral) 250 mg THREE TIMES A DAY GT 03/02/19 09:00 04/01/19 08:59 03/05/19 12:06 Sodium Chloride 1,000 ml @ 75 mls/hr [id number] IV 03/04/19 15:30 04/03/19 15:29 03/05/19 04:32 Vancomycin HCl (Vanco rx to dose) 1 ea DAILY PRN MISC Per rx protocol 03/01/19 12:15 03/31/19 12:14 Vancomycin HCl 1 gm/Sodium Chloride 275 ml @ 183.708 mls/hr Q24H IVPB 03/02/19 05:00 03/07/19 04:59 03/05/19 04:31 Zinc Sulfate (Zinc Sulfate) 220 mg DAILY ORAL 03/04/19 09:00 03/14/19 08:59 03/05/19 09:58 Randal Pool MD Mar 05, 2019 16:52
--- NOTE | 2019-03-05 17:39 | NUR ---
NURSE NOTES: Received a call back from Dr. Melendez (regarding K+ 6.0 and Troponin 0.534) and updated him his HR 110 sinus tachy. NNO at present. Pt. DNR CODE status.
--- NOTE | 2019-03-05 19:31 | NUR ---
HAND-OFF: Report given to Artur MCCOY. Pt. remain sinus tachy at 110. Dr. Melendez aware of all critical level with no new order.
--- NOTE | 2019-03-05 19:36 | NUR ---
NURSE NOTES: Report received from NADINE Kong. Observed pt lying in the bed, obtunded. ST on air sampling and monitoring, HR of 110 noted, BP of 98/48. Trach to vent, Shiley 8, AC 12, TV 500, FIO2 28%, PEEP 5, saturating at 99%. GT intact, running Glucerna 1.5 at 50cc/hr, no residual, flushing well. IV on L EJ 18 G, intact, asymptomatic, running 1/2 NS at 75cc/hr. F/C intact, draining light blanca urine, 450cc output noted. Bed in the lowest position. Side rails up x3. Will continue to monitor.
[2019-03-05 20:00] VITALS: BP 102/61
--- NOTE | 2019-03-05 20:12 | Pulmonology Progress Note ---
Assessment/Plan Assessment/Plan ASSESSMENT: 1. SEPSIS: PsA UTI, GNR BSI 2. Lactic acidosis - RESOLVED 3. Tracheostomy status. 4. Dysphagia, status post G-tube. 5. Encephalopathy. 6. Multiple decubitus ulcer. 7. Glaucoma. 8. Hypertension, CAD, CHF with diastolic dysfunction. 9. DNAR. 10.hyperkalemia TREATMENT PLAN: 1. Ventilatory support, settings reviewed. no wean 2. Titrate O2. 3. DuoNebs. suction 4. Abx per ID, follow up cultures. 5. Monitor volumes and renal function, IV fluid hydration. 6. Wound care 7. TF's 8. Heparin subcutaneous for DVT prophylaxis. 9. 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 DNAR, continue to discuss goals of care, consider transition back to SNF with hospice Subjective ROS Limited/Unobtainable: Yes Allergies: Coded Allergies: DORZOLAMIDE (Unverified Allergy, Unknown, 12/23/18) LISINOPRIL (Unverified Allergy, Unknown, 12/23/18) TIMOLOL (Unverified Allergy, Unknown, 12/23/18) TIOTROPIUM (Unverified Allergy, Unknown, 12/23/18) Subjective obtunded on the vent toelrating tf copious purulent secretions from trach no bleeding no reports of nv cachetic trach and peg Objective Last 24 Hour Vital Signs Date Time Temp Pulse Resp B/P (MAP) Pulse Ox O2 Delivery O2 Flow Rate FiO2 03/05/19 18:37 102 23 100 Mechanical Ventilator 28 105 23 28 03/05/19 18:00 102 97/51 03/05/19 16:52 99 23 28 03/05/19 16:00 28 03/05/19 16:00 96.4 103 18 97/51 (66) 99 03/05/19 16:00 Mechanical Ventilator 03/05/19 15:32 119 26 28 03/05/19 15:14 116 03/05/19 13:37 103 22 100 Mechanical Ventilator 28 106 21 28 03/05/19 12:10 110 106/61 03/05/19 12:00 97.0 110 17 106/61 (76) 100 03/05/19 12:00 114 03/05/19 12:00 Mechanical Ventilator 03/05/19 12:00 28 03/05/19 10:40 111 20 28 03/05/19 09:58 129 115/98 03/05/19 08:51 129 21 28 03/05/19 08:05 135 03/05/19 08:00 Mechanical Ventilator 03/05/19 08:00 97.0 125 19 115/98 (104) 100 03/05/19 08:00 28 03/05/19 06:45 125 23 100 Mechanical Ventilator 28 122 24 28 03/05/19 04:33 131 24 28 03/05/19 04:00 Mechanical Ventilator 03/05/19 04:00 97.7 128 18 98/56 (70) 100 03/05/19 04:00 142 03/05/19 04:00 28 03/05/19 02:47 125 23 28 03/05/19 01:00 98.1 03/05/19 00:39 111 25 100 Mechanical Ventilator 28 114 22 28 03/05/19 00:00 Mechanical Ventilator 03/05/19 00:00 28 03/05/19 00:00 95.5 117 14 104/55 (71) 100 03/04/19 23:36 116 03/04/19 22:36 110 22 28 03/04/19 20:54 104 23 28 Intake and Output 03/04/19 03/05/19 19:00 07:00 Intake Total 2974.75 ml 1999 ml Output Total 525 ml 400 ml Balance 2449.75 ml 1599 ml Free Water 0 ml IV Total 2274.75 ml 1339 ml Tube Feeding 400 ml 570 ml Other 300 ml 90 ml Output Urine Total 525 ml 400 ml # Bowel Movements 2 2 General Appearance: cachetic Respiratory/Chest: rhonchi Cardiovascular: normal rate Abdomen: soft, non tender, no organomegaly Extremities: no cyanosis Skin: no rash Neurologic/Psychiatric: disoriented, unresponsiveness Laboratory Tests 03/05/19 15:30: White Blood Count 12.2H, Red Blood Count 3.13L, Hemoglobin 8.3L, Hematocrit 26.8L, Mean Corpuscular Volume 85, Mean Corpuscular Hemoglobin 26.5L, Mean Corpuscular Hemoglobin Concent 31.0L, Red Cell Distribution Width 18.5H, Platelet Count 269, Mean Platelet Volume 9.6, Neutrophils (%) (Auto) 67.4, Lymphocytes (%) (Auto) 17.6L, Monocytes (%) (Auto) 12.1H, Eosinophils (%) (Auto ) 0.4, Basophils (%) (Auto) 2.5H, Sodium Level 149H, Potassium Level 6.0*H, Chloride Level 118H, Carbon Dioxide Level 26, Anion Gap 5, Blood Urea Nitrogen 40H, Creatinine 0.5L, Estimat Glomerular Filtration Rate , Glucose Level 92, Calcium Level 6.8L, Magnesium Level 2.6H, Total Bilirubin 0.4, Aspartate Amino Transf (AST/SGOT) 35, Alanine Aminotransferase (ALT/SGPT) 31, Alkaline Phosphatase 291H, Troponin I 0.534H, Pro-B-Type Natriuretic Peptide 84301V, Total Protein 3.9L, Albumin 0.7L, Globulin 3.2, Albumin/Globulin Ratio 0.2L Current Medications Medications (Trade) Dose Ordered Sig/Katie Route PRN Reason Start Time Stop Time Status Last Admin Dose Admin Acetaminophen (Tylenol) 650 mg Q4H PRN GT Mild Pain/Temp > 100.5 03/04/19 06:30 04/03/19 06:29 03/05/19 04:29 Albuterol/ Ipratropium (Albuterol/ Ipratropium) 3 ml Q4H PRN HHN Shortness of Breath 03/01/19 12:15 03/06/19 12:14 Albuterol/ Ipratropium (Albuterol/ Ipratropium) 3 ml Q6HRT HHN 03/01/19 13:00 03/06/19 12:59 03/05/19 18:37 Amikacin Protocol (Amikacin pharmacy to dose) 1 ea DAILY PRN MISC Per rx protocol 03/01/19 18:30 03/31/19 18:29 Amikacin Sulfate 1000 mg/Sodium Chloride 114 ml @ 114 mls/hr Q36H IV 03/01/19 20:00 03/08/19 19:59 03/04/19 20:47 Ascorbic Acid (Vitamin C) 250 mg TWICE A DAY ORAL 03/03/19 18:00 04/02/19 17:59 03/05/19 18:40 Cefepime HCl 1 gm/ Dextrose 50 ml @ 100 mls/hr Q12H IVPB 03/01/19 23:00 03/08/19 22:59 03/05/19 12:03 Dextrose (Dextrose 50%) 25 ml Q30M PRN IV Hypoglycemia 03/01/19 12:30 03/31/19 12:29 03/04/19 18:50 Dextrose (Dextrose 50%) 50 ml Q30M PRN IV Hypoglycemia 03/01/19 12:30 03/31/19 12:29 Diltiazem HCl (Cardizem) 60 mg EVERY 6 HOURS GT 03/05/19 12:00 04/04/19 11:59 03/05/19 12:10 Heparin Sodium (Porcine) (Heparin 5000 units/ml) 5,000 units EVERY 12 HOURS SUBQ 03/01/19 21:00 03/31/19 20:59 03/05/19 10:00 Insulin Aspart (NovoLOG) EVERY 6 HOURS SUBQ 03/04/19 18:00 03/31/19 16:29 Metronidazole (Flagyl) 500 mg EVERY 8 HOURS ORAL 03/03/19 22:00 03/10/19 21:59 03/05/19 15:13 Phosphorus (Phospha 250 Neutral) 250 mg THREE TIMES A DAY GT 03/02/19 09:00 04/01/19 08:59 03/05/19 18:40 Sodium Chloride 1,000 ml @ 75 mls/hr [id number] IV 03/04/19 15:30 04/03/19 15:29 03/05/19 18:41 Vancomycin HCl (Vanco rx to dose) 1 ea DAILY PRN MISC Per rx protocol 03/01/19 12:15 03/31/19 12:14 Vancomycin HCl 1 gm/Sodium Chloride 275 ml @ 183.708 mls/hr Q24H IVPB 03/02/19 05:00 03/07/19 04:59 03/05/19 04:31 Zinc Sulfate (Zinc Sulfate) 220 mg DAILY ORAL 03/04/19 09:00 03/14/19 08:59 03/05/19 09:58 Emma Ramesh DO Mar 05, 2019 20:12
[2019-03-06] VITALS: BP 118/70
--- NOTE | 2019-03-06 | NUR ---
NURSE NOTES: Pt lying in the bed, sleeping, calm. No acute distress noted at this time. ST on potline monitor with HR of 110s. Tolerating well with current vent setting, no sob, saturating at 99%. BP of 118/70 noted. Will continue to monitor.
[2019-03-06] MEDS: dilTIAZem HCl 60mg tab GT SCH ×5 (00:10→23:16)
[2019-03-06] MEDS: Albuterol/Ipratropium 3ml neb HHN SCH ×2 (00:34→07:19)
--- NOTE | 2019-03-06 01:12 | NUR ---
RESPIRATORY NOTE: PT TRANSFERED FROM 242 TO 238. PT IS TRACH SHILEY 8. VENT PLUGGED INTO RED OUTLET AND BMV AT BEDSIDE. ALARMS ARE ON AND AUDIBLE. PT TACHY, SAT IS 99% ON 28% FIO2. VENT SETTINGS ARE12/ 500/ 28%/ +5. WILL CONTINUE TO MONITOR THROUGHOUT THE NIGHT.
--- NOTE | 2019-03-06 02:15 | Progress Note ---
DATE: 03/05/2019 CARDIOLOGY PROGRESS NOTE SUBJECTIVE: The patient had rapid atrial tachyarrhythmias today. He was given IV Cardizem with good clinical response and started on oral therapy. OBJECTIVE: VITAL SIGNS: Blood pressure 97/51, heart rate 103, respiratory rate 18, and afebrile. LUNGS: Bilateral breath sounds. Rhonchi. Thin trach secretions. CARDIAC: Regular rhythm. Rapid rate. Normal S1 and S2. ABDOMEN: Soft. G-tube intact. EXTREMITIES: Trace dependent edema. LABORATORY DATA: Labs reviewed. IMPRESSION: 1. Sepsis. 2. Paroxysmal supraventricular and atrial tachyarrhythmias. 3. Acute myocardial ischemia and probable non-ST elevation infarction. 4. Acute on chronic diastolic congestive heart failure. 5. Ventilator-dependent respiratory failure. 6. Hyperkalemia. PLAN: 1. Continue diltiazem. 2. GI bleeding. 3. Followup troponin levels. 4. Ventilator support. 5. Antimicrobials. 6. Diuresis. 7. Followup chemistry panel. 8. Kayexalate if persistent hyperkalemia. Cody Melendez M.D. DR: MARITO JOB#: [id number] CC:
--- NOTE | 2019-03-06 02:32 | Consultation ---
DATE OF CONSULTATION: 03/04/2019 CARDIOLOGY CONSULTATION CONSULTING PHYSICIAN: Cody Melendez M.D. REQUESTING PHYSICIAN: Josemanuel Lopes M.D. REASON FOR CONSULTATION: Elevated troponin level and tachyarrhythmia. HISTORY OF PRESENT ILLNESS: This is an 88-year-old male with ventilator-dependent respiratory failure. He has had previous hospitalizations most recently two weeks ago. He has had multiple medical problems including congestive heart failure and myocardial ischemia as well as sepsis with shock. He was transferred to the hospital again because of increasing altered mentation and lethargy according to family members. Today, I have been asked to assist with cardiovascular care addressing his troponin level and rapid heart rate. 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 ALLERGIES: Include timolol, dorzolamide, lisinopril, and tiotropium. MEDICATIONS: Prior to admission, reviewed and reconciled. FAMILY HISTORY: Noncontributory. SOCIAL HISTORY: Prior smoker. No alcohol or substance abuse. Presently resides at a [facility] facility. REVIEW OF SYSTEMS: Unobtainable from the patient. PHYSICAL EXAMINATION: VITAL SIGNS: Blood pressure 110/63, heart rate 118, respiratory rate 23, and afebrile. HEENT: Temporal wasting. Trach site with thin secretions. LUNGS: Bilateral rhonchi. CARDIAC: Regular rhythm. Rapid rate. Normal S1 and S2. ABDOMEN: Soft. G-tube site intact. EXTREMITIES: Trace edema. LABORATORY AND DIAGNOSTIC DATA: White count is 12 and hemoglobin 8.2. Troponin 0.154. ABG - 7.42, 42, and 118 on March 01, 2019. Chest x-ray yesterday revealed bilateral basilar infiltrates and small right pleural effusion. EKG, sinus rhythm with no acute abnormalities. Nonspecific T-wave changes. IMPRESSION: 1. Probable sepsis, resolved. 2. Lactic acidosis. 3. Paroxysmal supraventricular tachyarrhythmias. 4. Ventilator-dependent respiratory failure. 5. Cerebrovascular disease with dementia. 6. Toxic encephalopathy. 7. Hypertensive heart disease. 8. Acute on chronic diastolic congestive heart failure. 9. Acute myocardial ischemia and possible non-ST elevation infarction. PLAN: 1. Ventilator support. 2. Antimicrobials. 3. Respiratory hygiene. 4. Cautious hydration. 5. DVT prophylaxis. 6. Diltiazem for arrhythmia suppression. 7. Antiplatelet therapy to be held in view of low hemoglobin and concerns of GI blood loss. 8. We will follow. Cody Melendez M.D. DR: MARITO JOB#: [id number] CC:
--- NOTE | 2019-03-06 03:18 | NUR ---
NURSE NOTES: Pt sleeping in the bed. No acute distress noted at this time. Bed bath given. Reposition done q 2 hr. Oral care given. Tolerating well current feeding, Glucerna 1.5 at 50cc/hr, no residual noted. Will continue to monitor.
[2019-03-06 04:00] VITALS: BP 113/74
[2019-03-06] MEDS: NovoLOG Insulin Flexpen SUBQ SCH ×4 (05:13→17:22)
[2019-03-06] MEDS: Vancomycin 1 GM in NS 275 ML IVPB SCH (05:24)
[2019-03-06] MEDS: metroNIDAZOLE 500mg tab ORAL SCH ×3 (05:27→21:26)
[2019-03-06 05:34] LABS: ALANINE AMINOTRANSFERASE 16 U/L (12-78); ALBUMIN < 0.6 G/DL (3.4-5.0); ALKALINE PHOSPHATASE 164 U/L (46-116); ANION GAP 4 mmol/L (5-15); ASPARTATE AMINO TRANSFERASE 22 U/L (15-37); BILIRUBIN,TOTAL 0.3 MG/DL (0.2-1.0); BLOOD UREA NITROGEN 41 mg/dL (7-18); CALCIUM 6.2 MG/DL (8.5-10.1); CARBON DIOXIDE 25 MMOL/L (21-32); CHLORIDE 120 MMOL/L (98-107); CREATININE 0.6 MG/DL (0.55-1.30); POTASSIUM 5.3 MMOL/L (3.5-5.1); SODIUM 149 MMOL/L (136-145)
--- NOTE | 2019-03-06 07:29 | NUR ---
HAND-OFF: Report given to NADINE Melendez.
--- NOTE | 2019-03-06 07:30 | NUR ---
NURSE NOTES: Received patient in bed. Vent dependent. No respiratory distress. Obtunded. On continuous GTF as tolerated. Mcpherson cath inplace, with yellow urine noted in drainage bag by gravity. Left EJ noted, with ongoing IVF per order. Contact isolation observed. Will continue plan of care.
[2019-03-06 08:00] VITALS: BP 103/48
[2019-03-06] MEDS: Amikacin 1,000 MG in NS 110 ML IV SCH (09:00)
[2019-03-06 09:39] LABS: BASOPHILS % (AUTO) 1.6 % (0.0-2.0); EOSINOPHILS % (AUTO) 0.2 % (0.0-3.0); HEMOGLOBIN 8.7 G/DL (14.2-18.0); LYMPHOCYTES % (AUTO) 20.5 % (20.0-45.0); MEAN CORPUSCULAR VOLUME 86 FL (80-99); MONOCYTES % (AUTO) 12.9 % (1.0-10.0); NEUTROPHILS % (AUTO) 64.7 % (45.0-75.0); PLATELET COUNT 230 K/UL (150-450); RED BLOOD COUNT 3.26 M/UL (4.70-6.10); RED CELL DISTRIBUTION WIDTH 18.3 % (11.6-14.8); WHITE BLOOD COUNT 11.8 K/UL (4.8-10.8)
[2019-03-06] MEDS: Ascorbic Acid 500mg tab ORAL SCH ×2 (10:01→20:18)
[2019-03-06] MEDS: Phospha 250 Neutral tab GT SCH ×4 (10:01→21:25)
[2019-03-06] MEDS: Zinc Sulfate 220mg cap ORAL SCH (10:01)
[2019-03-06] MEDS: Aspirin Baby 81mg NG SCH (10:01)
[2019-03-06] MEDS: Heparin 5000 units/ml inj SUBQ SCH ×2 (10:03→20:19)
--- NOTE | 2019-03-06 11:05 | NUR ---
RADIOLOGY DEPT., CHEST X-RAY DONE.-P.DYE
[2019-03-06 12:00] VITALS: BP 99/55
--- NOTE | 2019-03-06 13:01 | Diagnostic Imaging Report ---
Indication: Dyspnea Comparison: 03/03/2019 A single view chest radiograph was obtained. Findings: The lungs are hyperexpanded. There is evidence of a pulmonary vascular congestion with hilar prominence and increased vascularity. In addition the lung bases demonstrate hazy groundglass opacification due to pleural effusions likely. There is a tracheostomy again noted. Heart size is stable. IMPRESSION: COPD. CHF with bilateral pleural effusions suspected. No significant change from the last exam
--- NOTE | 2019-03-06 14:02 | Surgery Progress Note ---
Surgery Progress Note Subjective Additional Comments ill appearing resp minimal exam unchanged labs reviewed Objective Last 24 Hour Vital Signs Date Time Temp Pulse Resp B/P (MAP) Pulse Ox O2 Delivery O2 Flow Rate FiO2 03/06/19 13:18 113 21 28 03/06/19 12:22 102 99/55 03/06/19 12:00 28 03/06/19 12:00 98.3 102 21 99/55 (70) 98 03/06/19 12:00 Mechanical Ventilator 03/06/19 11:30 96 03/06/19 10:50 109 18 28 03/06/19 10:50 109 17 100 Mechanical Ventilator 28 03/06/19 08:58 112 17 28 03/06/19 08:00 Mechanical Ventilator 03/06/19 08:00 28 03/06/19 08:00 98.6 107 21 103/48 (66) 100 03/06/19 07:51 105 03/06/19 07:20 106 20 100 Mechanical Ventilator 28 109 14 28 03/06/19 05:27 107 100/49 03/06/19 04:52 106 21 28 03/06/19 04:00 104 03/06/19 04:00 Mechanical Ventilator 03/06/19 04:00 97.3 107 22 113/74 (87) 100 03/06/19 04:00 28 03/06/19 02:53 109 22 100 Mechanical Ventilator 28 109 17 28 03/06/19 00:34 108 22 100 Mechanical Ventilator 28 109 17 28 03/06/19 00:10 113 115/49 03/06/19 00:00 28 03/06/19 00:00 98.2 112 25 118/70 (86) 100 03/06/19 00:00 108 03/06/19 00:00 Mechanical Ventilator 03/05/19 22:52 109 22 28 03/05/19 20:46 102 19 28 03/05/19 20:00 28 03/05/19 20:00 102 03/05/19 20:00 Mechanical Ventilator 03/05/19 20:00 97.7 110 25 102/61 (75) 100 03/05/19 18:37 102 23 100 Mechanical Ventilator 28 105 23 28 03/05/19 18:00 102 97/51 03/05/19 16:52 99 23 28 03/05/19 16:00 28 1/26/20 16:00 96.4 103 18 97/51 (66) 99 03/05/19 16:00 Mechanical Ventilator 03/05/19 15:32 119 26 28 03/05/19 15:14 116 I&O Intake and Output 03/05/19 03/06/19 19:00 07:00 Intake Total 1350 ml 1775 ml Output Total 450 ml 600 ml Balance 900 ml 1175 ml Free Water 150 ml 150 ml IV Total 750 ml 1025 ml Tube Feeding 450 ml 600 ml Output Urine Total 450 ml 600 ml # Bowel Movements 2 1 Dressing: other Wound: other Drains: other Cardiovascular: RSR Respiratory: decreased breath sounds Abdomen: soft, present bowel sounds Extremities: no cyanosis, other Laboratory Tests Test 03/05/19 15:30 03/06/19 03:50 03/06/19 08:30 White Blood Count 12.2 K/UL (4.8-10.8) H 11.8 K/UL (4.8-10.8) H Red Blood Count 3.13 M/UL (4.70-6.10) L 3.26 M/UL (4.70-6.10) L Hemoglobin 8.3 G/DL (14.2-18.0) L 8.7 G/DL (14.2-18.0) L Hematocrit 26.8 % (42.0-52.0) L 28.0 % (42.0-52.0) L Mean Corpuscular Volume 85 FL (80-99) 86 FL (80-99) Mean Corpuscular Hemoglobin 26.5 PG (27.0-31.0) L 26.7 PG (27.0-31.0) L Mean Corpuscular Hemoglobin Concent 31.0 G/DL (32.0-36.0) L 31.1 G/DL (32.0-36.0) L Red Cell Distribution Width 18.5 % (11.6-14.8) H 18.3 % (11.6-14.8) H Platelet Count 269 K/UL (150-450) 230 K/UL (150-450) Mean Platelet Volume 9.6 FL (6.5-10.1) 9.2 FL (6.5-10.1) Neutrophils (%) (Auto) 67.4 % (45.0-75.0) 64.7 % (45.0-75.0) Lymphocytes (%) (Auto) 17.6 % (20.0-45.0) L 20.5 % (20.0-45.0) Monocytes (%) (Auto) 12.1 % (1.0-10.0) H 12.9 % (1.0-10.0) H Eosinophils (%) (Auto) 0.4 % (0.0-3.0) 0.2 % (0.0-3.0) Basophils (%) (Auto) 2.5 % (0.0-2.0) H 1.6 % (0.0-2.0) Sodium Level 149 MMOL/L (136-145) H 149 MMOL/L (136-145) H Potassium Level 6.0 MMOL/L (3.5-5.1) *H 5.3 MMOL/L (3.5-5.1) H Chloride Level 118 MMOL/L (98-107) H 120 MMOL/L (98-107) H Carbon Dioxide Level 26 MMOL/L (21-32) 25 MMOL/L (21-32) Anion Gap 5 mmol/L (5-15) 4 mmol/L (5-15) L Blood Urea Nitrogen 40 mg/dL (7-18) H 41 mg/dL (7-18) H Creatinine 0.5 MG/DL (0.55-1.30) L 0.6 MG/DL (0.55-1.30) Estimat Glomerular Filtration Rate mL/min (>60) mL/min (>60) Glucose Level 92 MG/DL (74-106) 112 MG/DL (74-106) H Calcium Level 6.8 MG/DL (8.5-10.1) L 6.2 MG/DL (8.5-10.1) L Magnesium Level 2.6 MG/DL (1.8-2.4) H 2.3 MG/DL (1.8-2.4) Total Bilirubin 0.4 MG/DL (0.2-1.0) 0.3 MG/DL (0.2-1.0) Aspartate Amino Transf (AST/SGOT) 35 U/L (15-37) 22 U/L (15-37) Alanine Aminotransferase (ALT/SGPT) 31 U/L (12-78) 16 U/L (12-78) Alkaline Phosphatase 291 U/L (46-116) H 164 U/L (46-116) H Troponin I 0.534 ng/mL (0.000-0.056) 0.234 ng/mL (0.000-0.056) Pro-B-Type Natriuretic Peptide 84129 pg/mL (0-125) H 75622 pg/mL (0-125) H Total Protein 3.9 G/DL (6.4-8.2) L 2.5 G/DL (6.4-8.2) #L Albumin 0.7 G/DL (3.4-5.0) L < 0.6 G/DL (3.4-5.0) L Globulin 3.2 g/dL g/dL Albumin/Globulin Ratio 0.2 (1.0-2.7) L Plan Problems: (1) Malnutrition Assessment & Plan: DAILY ESTIMATED NEEDS: Needs based on Advanced wounds, Underweight, CRITICAL CARE/ 49.5kg 25-35 kcals/kg 5394-3947 total kcals 1.5-2.0 g protein/kg 74-99 g total protein 25-30 mL/kg 5177-9202 total fluid mLs NUTRITION DIAGNOSIS: (1) Increased kcal/prot needs R/T wound healing, sepsis as evidenced by pt w/ advanced wounds, 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 (2) Swallowing difficulty R/T respiratory status as evidenced trach/vent dep and PEG dep (3) Altered GI function R/T pneumatosis, GIB as evidenced by admitted w/ c/o coffee ground emesis, TF initiated at low rate, now @ goal. CURRENT TF:Glucerna 1.5 @50ml/hr x20 hrs ENTERAL NUTRITION RECOMMENDATIONS: Glucerna 1.5 @ 50ml/hr x 20 hrs to provide 1000ml, 1500 kcal, 82.3g pro, 759ml free H2O -> Maintain current TF to meet 100% est needs -> HOB over 30 degrees/ water flush per MD ADDITIONAL RECOMMENDATIONS: * Per SNF: HT=67", PV=960qdm (as of 12/21) Per Dec SNF record -> hv=665mes, pt edematous, wt trending up Rec to RECALIBRATE bed scale for accurate CBW . * Rec to increase water flushes for elev NA (147) * Wound healing: add vit C 500mg BID + Gaetano 1pkt BID (2) Failure to thrive in adult (3) Decubitus skin ulcer (4) Sepsis Assessment & Plan: Patient presents with leukocytosis, lactic acidosis, abnormal labs. Altered mental status Continued malnutrition failure to thrive in adult Decubitus skin ulcers Patient evaluated full physical examination completed wounds unlikely etiology of patient's sepsis Micro noted Chest x-ray reviewed Trach in place on support Care plan initiated Discussed with PCP and consultants recommend SNF with hospice Thank you for let me participation's care will continue to follow with recommendations Sher Keene Mar 06, 2019 14:02
--- NOTE | 2019-03-06 14:22 | Pulmonology Progress Note ---
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 SEPSIS: PsA UTI, GNR BSI 2. Lactic acidosis - RESOLVED 3. Tracheostomy status. 4. Dysphagia, status post G-tube. 5. Encephalopathy. 6. Multiple decubitus ulcer. 7. Glaucoma. 8. Hypertension, CAD, CHF with diastolic dysfunction. 9. DNAR. TREATMENT PLAN: 1. Ventilatory support, settings reviewed. 2. Titrate O2. 3. Atrovent HHN's 4. Abx per ID, follow up cultures. 5. Monitor volumes and renal function, IV fluid hydration. 6. Wound care 7. TF's 8. Heparin subcutaneous for DVT prophylaxis. 9. Airline Pilot recs 10. DNAR, continue to discuss goals of care, consider transition back to SNF with hospice Subjective Allergies: Coded Allergies: DORZOLAMIDE (Unverified Allergy, Unknown, 12/23/18) LISINOPRIL (Unverified Allergy, Unknown, 12/23/18) TIMOLOL (Unverified Allergy, Unknown, 12/23/18) TIOTROPIUM (Unverified Allergy, Unknown, 12/23/18) Subjective NAEO stable on vent AFVSS O2 needs stable No sig secretions Tachycardia improved Objective Last 24 Hour Vital Signs Date Time Temp Pulse Resp B/P (MAP) Pulse Ox O2 Delivery O2 Flow Rate FiO2 03/06/19 13:18 113 21 28 03/06/19 12:22 102 99/55 03/06/19 12:00 28 03/06/19 12:00 98.3 102 21 99/55 (70) 98 03/06/19 12:00 Mechanical Ventilator 03/06/19 11:30 96 03/06/19 10:50 109 18 28 03/06/19 10:50 109 17 100 Mechanical Ventilator 28 03/06/19 08:58 112 17 28 03/06/19 08:00 Mechanical Ventilator 03/06/19 08:00 28 03/06/19 08:00 98.6 107 21 103/48 (66) 100 03/06/19 07:51 105 03/06/19 07:20 106 20 100 Mechanical Ventilator 28 109 14 28 03/06/19 05:27 107 100/49 03/06/19 04:52 106 21 28 03/06/19 04:00 104 03/06/19 04:00 Mechanical Ventilator 03/06/19 04:00 97.3 107 22 113/74 (87) 100 03/06/19 04:00 28 03/06/19 02:53 109 22 100 Mechanical Ventilator 28 109 17 28 03/06/19 00:34 108 22 100 Mechanical Ventilator 28 109 17 28 03/06/19 00:10 113 115/49 03/06/19 00:00 28 03/06/19 00:00 98.2 112 25 118/70 (86) 100 03/06/19 00:00 108 03/06/19 00:00 Mechanical Ventilator 03/05/19 22:52 109 22 28 03/05/19 20:46 102 19 28 03/05/19 20:00 28 03/05/19 20:00 102 03/05/19 20:00 Mechanical Ventilator 03/05/19 20:00 97.7 110 25 102/61 (75) 100 03/05/19 18:37 102 23 100 Mechanical Ventilator 28 105 23 28 03/05/19 18:00 102 97/51 03/05/19 16:52 99 23 28 03/05/19 16:00 28 03/05/19 16:00 96.4 103 18 97/51 (66) 99 03/05/19 16:00 Mechanical Ventilator 03/05/19 15:32 119 26 28 03/05/19 15:14 116 Intake and Output 03/05/19 03/06/19 19:00 07:00 Intake Total 1350 ml 1775 ml Output Total 450 ml 600 ml Balance 900 ml 1175 ml Free Water 150 ml 150 ml IV Total 750 ml 1025 ml Tube Feeding 450 ml 600 ml Output Urine Total 450 ml 600 ml # Bowel Movements 2 1 General Appearance: no acute distress, cachetic HEENT: status post trach Respiratory/Chest: crackles/rales, rhonchi Cardiovascular: normal peripheral pulses, normal rate, regular rhythm Abdomen: normal bowel sounds, soft, non tender, no organomegaly, non distended , no mass, other - GT Extremities: no cyanosis, no clubbing, no edema Laboratory Tests 03/05/19 15:30: White Blood Count 12.2H, Red Blood Count 3.13L, Hemoglobin 8.3L, Hematocrit 26.8L, Mean Corpuscular Volume 85, Mean Corpuscular Hemoglobin 26.5L, Mean Corpuscular Hemoglobin Concent 31.0L, Red Cell Distribution Width 18.5H, Platelet Count 269, Mean Platelet Volume 9.6, Neutrophils (%) (Auto) 67.4, Lymphocytes (%) (Auto) 17.6L, Monocytes (%) (Auto) 12.1H, Eosinophils (%) (Auto ) 0.4, Basophils (%) (Auto) 2.5H, Sodium Level 149H, Potassium Level 6.0*H, Chloride Level 118H, Carbon Dioxide Level 26, Anion Gap 5, Blood Urea Nitrogen 40H, Creatinine 0.5L, Estimat Glomerular Filtration Rate , Glucose Level 92, Calcium Level 6.8L, Magnesium Level 2.6H, Total Bilirubin 0.4, Aspartate Amino Transf (AST/SGOT) 35, Alanine Aminotransferase (ALT/SGPT) 31, Alkaline Phosphatase 291H, Troponin I 0.534H, Pro-B-Type Natriuretic Peptide 52720A, Total Protein 3.9L, Albumin 0.7L, Globulin 3.2, Albumin/Globulin Ratio 0.2L 03/06/19 03:50: Sodium Level 149H, Potassium Level 5.3H, Chloride Level 120H, Carbon Dioxide Level 25, Anion Gap 4L, Blood Urea Nitrogen 41H, Creatinine 0.6, Estimat Glomerular Filtration Rate , Glucose Level 112H, Calcium Level 6.2L, Magnesium Level 2.3, Total Bilirubin 0.3, Aspartate Amino Transf (AST/SGOT) 22, Alanine Aminotransferase (ALT/SGPT) 16, Alkaline Phosphatase 164H, Troponin I 0.234H, Pro-B-Type Natriuretic Peptide 83830P, Total Protein 2.5#L, Albumin < 0.6L, Globulin 03/06/19 08:30: White Blood Count 11.8H, Red Blood Count 3.26L, Hemoglobin 8.7L, Hematocrit 28.0L, Mean Corpuscular Volume 86, Mean Corpuscular Hemoglobin 26.7L, Mean Corpuscular Hemoglobin Concent 31.1L, Red Cell Distribution Width 18.3H, Platelet Count 230, Mean Platelet Volume 9.2, Neutrophils (%) (Auto) 64.7, Lymphocytes (%) (Auto) 20.5, Monocytes (%) (Auto) 12.9H, Eosinophils (%) (Auto) 0.2, Basophils (%) (Auto) 1.6 Current Medications Medications (Trade) Dose Ordered Sig/Katie Route PRN Reason Start Time Stop Time Status Last Admin Dose Admin Acetaminophen (Tylenol) 650 mg Q4H PRN GT Mild Pain/Temp > 100.5 03/04/19 06:30 04/03/19 06:29 03/05/19 04:29 Amikacin Protocol (Amikacin pharmacy to dose) 1 ea DAILY PRN MISC Per rx protocol 03/01/19 18:30 03/31/19 18:29 Amikacin Sulfate 1000 mg/Sodium Chloride 114 ml @ 114 mls/hr Q36H IV 03/01/19 20:00 03/08/19 19:59 03/06/19 09:00 Ascorbic Acid (Vitamin C) 250 mg EVERY 12 HOURS ORAL 03/06/19 21:00 04/02/19 17:59 Aspirin (ASA) 81 mg DAILY NG 03/06/19 09:00 04/05/19 08:59 03/06/19 10:01 Cefepime HCl 1 gm/ Dextrose 50 ml @ 100 mls/hr Q12H IVPB 03/01/19 23:00 03/08/19 22:59 03/06/19 12:22 Dextrose (Dextrose 50%) 25 ml Q30M PRN IV Hypoglycemia 03/01/19 12:30 03/31/19 12:29 03/04/19 18:50 Dextrose (Dextrose 50%) 50 ml Q30M PRN IV Hypoglycemia 03/01/19 12:30 03/31/19 12:29 Diltiazem HCl (Cardizem) 60 mg EVERY 6 HOURS GT 03/05/19 12:00 04/04/19 11:59 03/06/19 12:22 Heparin Sodium (Porcine) (Heparin 5000 units/ml) 5,000 units EVERY 12 HOURS SUBQ 03/01/19 21:00 03/31/19 20:59 03/06/19 10:03 Insulin Aspart (NovoLOG) EVERY 6 HOURS SUBQ 03/04/19 18:00 03/31/19 16:29 Metronidazole (Flagyl) 500 mg EVERY 8 HOURS ORAL 03/03/19 22:00 03/10/19 21:59 03/06/19 05:27 Phosphorus (Phospha 250 Neutral) 250 mg EVERY 8 HOURS GT 03/06/19 14:00 04/01/19 08:59 Sodium Chloride 1,000 ml @ 75 mls/hr [id number] IV 03/04/19 15:30 04/03/19 15:29 03/06/19 11:03 Vancomycin HCl (Vanco rx to dose) 1 ea DAILY PRN MISC Per rx protocol 03/01/19 12:15 03/31/19 12:14 Vancomycin HCl 1 gm/Sodium Chloride 275 ml @ 183.708 mls/hr Q24H IVPB 03/02/19 05:00 03/07/19 04:59 03/06/19 05:24 Zinc Sulfate (Zinc Sulfate) 220 mg DAILY ORAL 03/04/19 09:00 03/14/19 08:59 03/06/19 10:01 Josemanuel Lopes MD Mar 06, 2019 14:22
[2019-03-06] MEDS ORDERED: Ipratropium 0.02% Inh Soln 2.5ml UD HHN PRN (14:30)
[2019-03-06 16:00] VITALS: BP 108/49
--- NOTE | 2019-03-06 19:15 | NUR ---
HAND-OFF: Report given to Jack Arias RN.
[2019-03-06] MEDS: Ipratropium 0.02% Inh Soln 2.5ml UD HHN SCH (19:29)
--- NOTE | 2019-03-06 19:30 | NUR ---
NURSE NOTES: Received Pt is sleeping on the bed and obtunded. Trach to Vent dependent setting with AC: 12, T: 500, P:5, FiO2 28% and SaO2 100% noted. Given tracheal and oral suction. Provided oral care. On tele monitor with A-flutter. Iv site intact and no sign of infiltration and running with 1/2NS @ 125cc/hr. Dressing is intact on wound area. Changed position. On G-tube feeding with Glucerna1.5 @ 50cc/hr running and no residual noted. Pt has Mcpherson and in placed and drainage well. Noted bilateral upper and lower extremities swelling. Placed fall precaution. Will continue to care plan.
[2019-03-06 20:00] VITALS: BP 117/56
[2019-03-06] MEDS ORDERED: FERROUS SU300 MG/52 GT (20:11)
[2019-03-06] MEDS ORDERED: MILK OF MA400 MG/51 ORAL (20:11)
[2019-03-06] MEDS ORDERED: ZOFRAN ODT8 MG ORAL (20:11)
[2019-03-06] MEDS ORDERED: METOPROLOL TART50 MG GT (20:11)
[2019-03-06] MEDS ORDERED: VITAMIN C500 MG/11 GT (20:11)
[2019-03-06] MEDS ORDERED: ACETAMINOP160 MG/5 M GT (20:11)
[2019-03-06] MEDS ORDERED: NEXIUM20 M1 GT (20:11)
[2019-03-06] MEDS ORDERED: HUMALOG100 UNIT/1 SUBQ (20:11)
[2019-03-06] MEDS ORDERED: DUONEB 0.5-3(2.53 ML HHN (20:11)
[2019-03-06] MEDS ORDERED: CRANBERRY425 MG GT (20:11)
[2019-03-06] MEDS ORDERED: ZOFRAN ODT8 MG GT (20:11)
--- NOTE | 2019-03-06 20:45 | Progress Note ---
DATE: 03/06/2019 SUBJECTIVE: The patient remains on ventilator support. Poorly responsive. pvc monitor, sinus rhythm with rare episodes of atrial fibrillation. OBJECTIVE: VITAL SIGNS: Blood pressure 99/55, heart rate 102, respiratory rate 20, and afebrile. Thin trach secretions. LUNGS: Bilateral breath sounds with few rhonchi. HEART: Regular rhythm and rate. Normal S1, S2 with no new murmur. ABDOMEN: Soft with G-tube. EXTREMITIES: Trace dependent edema. LABORATORY DATA: White count 11.8, hemoglobin 8.7, and platelet count 230,000. Troponin 0.234. Natriuretic peptide 16,000. Sodium 149, potassium 5.3, chloride 120, BUN 41, and creatinine 0.6. IMPRESSION: 1. Dehydration. 2. Hypernatremia. 3. Paroxysmal atrial fibrillation. 4. Acute myocardial infarction, [id number] type. 5. Ventilator-dependent respiratory failure. 6. Sepsis. 7. Healthcare-acquired pneumonia. 8. Chronic diastolic congestive heart failure. 9. Toxic and metabolic encephalopathies. PLAN: 1. Ventilator support. 2. Antimicrobials. 3. Hypotonic IV fluids. 4. Diltiazem for rate control and suppression of atrial ectopy. 5. Cautious use of anti-platelet therapy. 6. Prognosis remains poor due to comorbidities. Cody Melendez M.D. DR: STACI JOB#: [id number] CC:
[2019-03-06] MEDS: Acetaminophen 650mg/20.3ml GT PRN (23:01)
[2019-03-07] VITALS: BP 100/48
--- NOTE | 2019-03-07 | NUR ---
NURSE NOTES: Pt is sleeping on the bed and no sign of acute distress noted. Tolerated well with current Vent setting. Repositioned. Provided oral care. Given tracheal and oral suction. Tolerated well with current G-tube feeding. No residual noted. Will continue to monitor any change of condition.
[2019-03-07] MEDS: Ipratropium 0.02% Inh Soln 2.5ml UD HHN SCH ×4 (01:29→19:21)
[2019-03-07 04:00] VITALS: BP 109/53
[2019-03-07] MEDS: Vancomycin 1 GM in NS 275 ML IVPB SCH (04:27)
[2019-03-07 05:47] LABS: HEMATOCRIT 22.5 % (42.0-52.0); HEMOGLOBIN 7.1 G/DL (14.2-18.0); MEAN CORPUSCULAR VOLUME 85 FL (80-99); PLATELET COUNT 174 K/UL (150-450); RED BLOOD COUNT 2.65 M/UL (4.70-6.10); RED CELL DISTRIBUTION WIDTH 17.9 % (11.6-14.8); WHITE BLOOD COUNT 17.8 K/UL (4.8-10.8)
[2019-03-07] MEDS: Phospha 250 Neutral tab GT SCH ×3 (05:48→22:27)
[2019-03-07] MEDS: metroNIDAZOLE 500mg tab ORAL SCH ×3 (05:49→21:47)
[2019-03-07] MEDS: dilTIAZem HCl 60mg tab GT SCH ×3 (05:50→18:04)
[2019-03-07] MEDS: NovoLOG Insulin Flexpen SUBQ SCH ×4 (06:00→17:18)
[2019-03-07 06:19] LABS: ALANINE AMINOTRANSFERASE 22 U/L (12-78); ALBUMIN 0.6 G/DL (3.4-5.0); ALBUMIN/GLOBULIN RATIO 0.2 (1.0-2.7); ALKALINE PHOSPHATASE 310 U/L (46-116); ANION GAP 4 mmol/L (5-15); ASPARTATE AMINO TRANSFERASE 23 U/L (15-37); BILIRUBIN,TOTAL 0.4 MG/DL (0.2-1.0); BLOOD UREA NITROGEN 40 mg/dL (7-18); CALCIUM 6.8 MG/DL (8.5-10.1); CARBON DIOXIDE 27 MMOL/L (21-32); CHLORIDE 116 MMOL/L (98-107); CREATININE 0.7 MG/DL (0.55-1.30); POTASSIUM 5.1 MMOL/L (3.5-5.1); SODIUM 146 MMOL/L (136-145)
--- NOTE | 2019-03-07 07:20 | NUR ---
HAND-OFF: Report given to NADINE Martin. Pt is sleeping on the bed and tolerated well with current Vent setting. .
--- NOTE | 2019-03-07 07:21 | NUR ---
NURSE NOTES: Patient received lying in bed, obtunded. On trach to vent, settings of AC-12, TV-500, FiO2-28%, PEEP-5, saturating a t 100%. No signs of pain noted. Left EJ, asymptomatic, running IVF 1/2 NS at 125 ml/hr. G-tube with tube feeding of Glucerna 1.5 at 50 ml/hr, feeding just held per order to run for [address] hours. Mc[address] catheter in place, draining to yellow urine with sediments. Bilateral upper and lower extremities elevated. Sinus Rhythm noted on the monitor. Will continue monitor the patient.
[2019-03-07 07:36] LABS: HEMATOCRIT 22.1 % (42.0-52.0); HEMOGLOBIN 7.1 G/DL (14.2-18.0); MEAN CORPUSCULAR VOLUME 84 FL (80-99); PLATELET COUNT 173 K/UL (150-450); RED BLOOD COUNT 2.62 M/UL (4.70-6.10); RED CELL DISTRIBUTION WIDTH 18.4 % (11.6-14.8); WHITE BLOOD COUNT 18.1 K/UL (4.8-10.8)
[2019-03-07 08:00] VITALS: BP 108/45
[2019-03-07] MEDS: Zinc Sulfate 220mg cap ORAL SCH (08:24)
[2019-03-07] MEDS: Ascorbic Acid 500mg tab ORAL SCH ×2 (08:24→20:47)
[2019-03-07] MEDS: Heparin 5000 units/ml inj SUBQ SCH ×2 (08:26→20:50)
[2019-03-07] MEDS: Aspirin Baby 81mg NG SCH (08:29)
--- NOTE | 2019-03-07 08:43 | Pulmonology Progress Note ---
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 SEPSIS: PsA UTI, GNR BSI 2. Lactic acidosis - RESOLVED 3. Tracheostomy status. 4. Dysphagia, status post G-tube. 5. Encephalopathy. 6. Multiple decubitus ulcer. 7. Glaucoma. 8. Hypertension, CAD, CHF with diastolic dysfunction. 9. DNAR. TREATMENT PLAN: 1. Ventilatory support, settings reviewed. 2. Titrate O2. 3. Atrovent HHN's 4. Abx per ID, follow up cultures. 5. Monitor volumes and renal function, IV fluid hydration. 6. Wound care 7. TF's 8. Heparin subcutaneous for DVT prophylaxis. 9. Tapering Machine Operator recs 10. DNAR, continue to discuss goals of care, consider transition back to SNF with hospice - will d/w niece today Subjective Allergies: Coded Allergies: DORZOLAMIDE (Unverified Allergy, Unknown, 12/23/18) LISINOPRIL (Unverified Allergy, Unknown, 12/23/18) TIMOLOL (Unverified Allergy, Unknown, 12/23/18) TIOTROPIUM (Unverified Allergy, Unknown, 12/23/18) Subjective NAEO stable on vent AFVSS O2 needs stable No sig secretions Objective Last 24 Hour Vital Signs Date Time Temp Pulse Resp B/P (MAP) Pulse Ox O2 Delivery O2 Flow Rate FiO2 03/07/19 07:22 90 19 100 Mechanical Ventilator 28 95 14 28 03/07/19 05:50 102 112/45 03/07/19 05:20 101 18 28 03/07/19 04:00 28 03/07/19 04:00 95 03/07/19 04:00 Mechanical Ventilator 03/07/19 04:00 98.8 107 20 109/53 (71) 100 03/07/19 03:05 101 19 28 03/07/19 01:29 106 19 100 Mechanical Ventilator 28 109 19 28 03/07/19 00:00 Mechanical Ventilator 03/07/19 00:00 118 03/07/19 00:00 99.1 104 20 100/48 (65) 99 03/07/19 00:00 28 03/06/19 23:16 116 115/57 03/06/19 23:00 104 18 28 03/06/19 21:05 105 17 28 03/06/19 20:00 99.0 112 20 117/56 (76) 99 03/06/19 20:00 134 03/06/19 20:00 28 03/06/19 20:00 Mechanical Ventilator 03/06/19 19:29 108 14 100 Mechanical Ventilator 28 111 12 28 03/06/19 17:22 116 108/49 03/06/19 17:05 114 17 28 03/06/19 16:00 28 03/06/19 16:00 Mechanical Ventilator 03/06/19 16:00 99.8 116 20 108/49 (68) 99 03/06/19 15:29 114 03/06/19 15:15 110 18 28 03/06/19 13:18 113 21 28 03/06/19 12:22 102 99/55 03/06/19 12:00 28 03/06/19 12:00 98.3 102 21 99/55 (70) 98 03/06/19 12:00 Mechanical Ventilator 03/06/19 11:30 96 03/06/19 10:50 109 18 28 03/06/19 10:50 109 17 100 Mechanical Ventilator 28 03/06/19 08:58 112 17 28 Intake and Output 03/06/19 03/07/19 19:00 07:00 Intake Total 1159.833 ml 2064 ml Output Total 400 ml Balance 1159.833 ml 1664 ml Free Water 100 ml IV Total 709.833 ml 1464 ml Tube Feeding 350 ml 600 ml Output Urine Total 400 ml # Bowel Movements 2 General Appearance: cachetic HEENT: status post trach Respiratory/Chest: crackles/rales, rhonchi Cardiovascular: normal peripheral pulses, normal rate, regular rhythm Abdomen: normal bowel sounds, soft, non tender, no organomegaly, non distended , no mass, other - GT Extremities: no cyanosis, no clubbing, no edema Microbiology Date/Time Source Procedure Growth Status 03/06/19 03:55 Blood Blood Culture - Preliminary NO GROWTH AFTER 24 HOURS Resulted 03/06/19 03:50 Blood Blood Culture - Preliminary NO GROWTH AFTER 24 HOURS Resulted Laboratory Tests 03/07/19 04:50: White Blood Count 17.8#H, Red Blood Count 2.65L, Hemoglobin 7.1L, Hematocrit 22.5L, Mean Corpuscular Volume 85, Mean Corpuscular Hemoglobin 26.9L, Mean Corpuscular Hemoglobin Concent 31.6L, Red Cell Distribution Width 17.9H, Platelet Count 174, Mean Platelet Volume 9.7, Neutrophils (%) (Auto) , Lymphocytes (%) (Auto) , Monocytes (%) (Auto) , Eosinophils (%) (Auto) , Basophils (%) (Auto) , Neutrophils % (Manual) [Pending], Lymphocytes % (Manual) [Pending], Platelet Estimate [Pending], Platelet Morphology [Pending], Sodium Level 146H, Potassium Level 5.1, Chloride Level 116H, Carbon Dioxide Level 27, Anion Gap 4L, Blood Urea Nitrogen 40H, Creatinine 0.7, Estimat Glomerular Filtration Rate , Glucose Level 130H, Calcium Level 6.8L, Magnesium Level 2.5H, Total Bilirubin 0.4, Aspartate Amino Transf (AST/SGOT) 23, Alanine Aminotransferase (ALT/SGPT) 22, Alkaline Phosphatase 310H, Total Protein 4.5#L, Albumin 0.6L, Globulin 3.9, Albumin/Globulin Ratio 0.2L 03/07/19 07:15: White Blood Count 18.1H, Red Blood Count 2.62L, Hemoglobin 7.1L, Hematocrit 22.1L, Mean Corpuscular Volume 84, Mean Corpuscular Hemoglobin 27.3, Mean Corpuscular Hemoglobin Concent 32.4, Red Cell Distribution Width 18.4H, Platelet Count 173, Mean Platelet Volume 9.9, Neutrophils (%) (Auto) , Lymphocytes (%) (Auto) , Monocytes (%) (Auto) , Eosinophils (%) (Auto) , Basophils (%) (Auto) , Neutrophils % (Manual) 65, Lymphocytes % (Manual) 15L, Platelet Estimate Adequate, Platelet Morphology Normal, Differential Total Cells Counted 100, Monocytes % (Manual) 17H, Eosinophils % (Manual) 1, Basophils % (Manual) 1, Band Neutrophils 1, Nucleated Red Blood Cells 1, Polychromasia 1+, Hypochromasia 3+, Anisocytosis 2+ Current Medications Medications (Trade) Dose Ordered Sig/Katie Route PRN Reason Start Time Stop Time Status Last Admin Dose Admin Acetaminophen (Tylenol) 650 mg Q4H PRN GT Mild Pain/Temp > 100.5 03/04/19 06:30 04/03/19 06:29 03/06/19 23:01 Amikacin Protocol (Amikacin pharmacy to dose) 1 ea DAILY PRN MISC Per rx protocol 03/01/19 18:30 03/31/19 18:29 Amikacin Sulfate 1000 mg/Sodium Chloride 114 ml @ 114 mls/hr Q36H IV 03/01/19 20:00 03/08/19 19:59 03/06/19 09:00 Ascorbic Acid (Vitamin C) 250 mg EVERY 12 HOURS ORAL 03/06/19 21:00 04/02/19 17:59 03/07/19 08:24 Aspirin (ASA) 81 mg DAILY NG 03/06/19 09:00 04/05/19 08:59 03/07/19 08:29 Cefepime HCl 1 gm/ Dextrose 50 ml @ 100 mls/hr Q12H IVPB 03/01/19 23:00 03/08/19 22:59 03/06/19 22:47 Dextrose (Dextrose 50%) 25 ml Q30M PRN IV Hypoglycemia 03/01/19 12:30 03/31/19 12:29 03/04/19 18:50 Dextrose (Dextrose 50%) 50 ml Q30M PRN IV Hypoglycemia 03/01/19 12:30 03/31/19 12:29 Diltiazem HCl (Cardizem) 60 mg EVERY 6 HOURS GT 03/05/19 12:00 04/04/19 11:59 03/07/19 05:50 Heparin Sodium (Porcine) (Heparin 5000 units/ml) 5,000 units EVERY 12 HOURS SUBQ 03/01/19 21:00 03/31/19 20:59 03/07/19 08:26 Insulin Aspart (NovoLOG) EVERY 6 HOURS SUBQ 03/04/19 18:00 03/31/19 16:29 Ipratropium [place] (Atrovent) 500 mcg Q4H PRN HHN Shortness of Breath 03/06/19 14:30 03/11/19 14:29 Ipratropium [place] (Atrovent) 500 mcg Q6HRT HHN 03/06/19 19:00 03/11/19 18:59 03/07/19 07:42 Metronidazole (Flagyl) 500 mg EVERY 8 HOURS ORAL 03/03/19 22:00 03/10/19 21:59 03/07/19 05:49 Phosphorus (Phospha 250 Neutral) 250 mg EVERY 8 HOURS GT 03/06/19 14:00 04/01/19 08:59 03/07/19 05:48 Sodium Chloride 1,000 ml @ 125 mls/hr Q8H IV 03/06/19 18:15 04/05/19 18:14 03/07/19 08:27 Vancomycin HCl (Vanco rx to dose) 1 ea DAILY PRN MISC Per rx protocol 03/01/19 12:15 03/31/19 12:14 Vancomycin HCl 1 gm/Sodium Chloride 275 ml @ 183.708 mls/hr Q24H IVPB 03/02/19 05:00 03/12/19 04:59 03/07/19 04:27 Zinc Sulfate (Zinc Sulfate) 220 mg DAILY ORAL 03/04/19 09:00 03/14/19 08:59 03/07/19 08:24 Josemanuel Lopes MD Mar 07, 2019 08:43
[2019-03-07 12:00] VITALS: BP 100/47
--- NOTE | 2019-03-07 12:00 | NUR ---
NURSE NOTES: Patient remains stable, tolerating tube feeding. No respiratory distress. Will continue to monitor.
--- NOTE | 2019-03-07 13:19 | Surgery Progress Note ---
Surgery Progress Note Subjective Additional Comments Ill-appearing. Worsening leukocytosis. Anemia. Overall condition deteriorating. Objective Last 24 Hour Vital Signs Date Time Temp Pulse Resp B/P (MAP) Pulse Ox O2 Delivery O2 Flow Rate FiO2 03/07/19 13:16 91 19 100 Mechanical Ventilator 28 99 17 28 03/07/19 12:25 90 100/47 03/07/19 12:00 Mechanical Ventilator 03/07/19 12:00 28 03/07/19 12:00 98.1 90 20 100/47 (64) 100 03/07/19 11:02 78 18 28 03/07/19 09:20 87 17 28 03/07/19 08:00 85 03/07/19 08:00 98.2 93 20 108/45 (66) 100 03/07/19 08:00 28 03/07/19 08:00 Mechanical Ventilator 03/07/19 07:22 90 19 100 Mechanical Ventilator 28 95 14 28 03/07/19 05:50 102 112/45 03/07/19 05:20 101 18 28 03/07/19 04:00 28 03/07/19 04:00 95 03/07/19 04:00 Mechanical Ventilator 03/07/19 04:00 98.8 107 20 109/53 (71) 100 03/07/19 03:05 101 19 28 03/07/19 01:29 106 19 100 Mechanical Ventilator 28 109 19 28 03/07/19 00:00 Mechanical Ventilator 03/07/19 00:00 118 03/07/19 00:00 99.1 104 20 100/48 (65) 99 03/07/19 00:00 28 03/06/19 23:16 116 115/57 03/06/19 23:00 104 18 28 03/06/19 21:05 105 17 28 03/06/19 20:00 99.0 112 20 117/56 (76) 99 03/06/19 20:00 134 03/06/19 20:00 28 03/06/19 20:00 Mechanical Ventilator 03/06/19 19:29 108 14 100 Mechanical Ventilator 28 111 12 28 03/06/19 17:22 116 108/49 03/06/19 17:05 114 17 28 03/06/19 16:00 28 03/06/19 16:00 Mechanical Ventilator 03/06/19 16:00 99.8 116 20 108/49 (68) 99 03/06/19 15:29 114 03/06/19 15:15 110 18 28 I&O Intake and Output 03/06/19 03/07/19 19:00 07:00 Intake Total 1159.833 ml 2064 ml Output Total 400 ml Balance 1159.833 ml 1664 ml Free Water 100 ml IV Total 709.833 ml 1464 ml Tube Feeding 350 ml 600 ml Output Urine Total 400 ml # Bowel Movements 2 Dressing: other Wound: other Drains: other Cardiovascular: RSR Respiratory: decreased breath sounds Abdomen: soft, present bowel sounds, non-distended Extremities: no cyanosis, other Laboratory Tests Test 03/07/19 04:50 03/07/19 07:15 White Blood Count 17.8 K/UL (4.8-10.8) #H 18.1 K/UL (4.8-10.8) H Red Blood Count 2.65 M/UL (4.70-6.10) L 2.62 M/UL (4.70-6.10) L Hemoglobin 7.1 G/DL (14.2-18.0) L 7.1 G/DL (14.2-18.0) L Hematocrit 22.5 % (42.0-52.0) L 22.1 % (42.0-52.0) L Mean Corpuscular Volume 85 FL (80-99) 84 FL (80-99) Mean Corpuscular Hemoglobin 26.9 PG (27.0-31.0) L 27.3 PG (27.0-31.0) Mean Corpuscular Hemoglobin Concent 31.6 G/DL (32.0-36.0) L 32.4 G/DL (32.0-36.0) Red Cell Distribution Width 17.9 % (11.6-14.8) H 18.4 % (11.6-14.8) H Platelet Count 174 K/UL (150-450) 173 K/UL (150-450) Mean Platelet Volume 9.7 FL (6.5-10.1) 9.9 FL (6.5-10.1) Neutrophils (%) (Auto) % (45.0-75.0) % (45.0-75.0) Lymphocytes (%) (Auto) % (20.0-45.0) % (20.0-45.0) Monocytes (%) (Auto) % (1.0-10.0) % (1.0-10.0) Eosinophils (%) (Auto) % (0.0-3.0) % (0.0-3.0) Basophils (%) (Auto) % (0.0-2.0) % (0.0-2.0) Differential Total Cells Counted 100 100 Neutrophils % (Manual) 57 % (45-75) 65 % (45-75) Lymphocytes % (Manual) 17 % (20-45) L 15 % (20-45) L Monocytes % (Manual) 20 % (1-10) H 17 % (1-10) H Eosinophils % (Manual) 1 % (0-3) 1 % (0-3) Basophils % (Manual) 1 % (0-2) 1 % (0-2) Metamyelocytes % 2 % (0-0) H Myelocytes % 2 % (0-0) H Band Neutrophils 0 % (0-8) 1 % (0-8) Nucleated Red Blood Cells 1 /100 WBC 1 /100 WBC Platelet Estimate Adequate Adequate Platelet Morphology Normal Normal Hypochromasia 3+ 3+ Anisocytosis 2+ 2+ Sodium Level 146 MMOL/L (136-145) H Potassium Level 5.1 MMOL/L (3.5-5.1) Chloride Level 116 MMOL/L (98-107) H Carbon Dioxide Level 27 MMOL/L (21-32) Anion Gap 4 mmol/L (5-15) L Blood Urea Nitrogen 40 mg/dL (7-18) H Creatinine 0.7 MG/DL (0.55-1.30) Estimat Glomerular Filtration Rate mL/min (>60) Glucose Level 130 MG/DL (74-106) H Calcium Level 6.8 MG/DL (8.5-10.1) L Magnesium Level 2.5 MG/DL (1.8-2.4) H Total Bilirubin 0.4 MG/DL (0.2-1.0) Aspartate Amino Transf (AST/SGOT) 23 U/L (15-37) Alanine Aminotransferase (ALT/SGPT) 22 U/L (12-78) Alkaline Phosphatase 310 U/L (46-116) H Total Protein 4.5 G/DL (6.4-8.2) #L Albumin 0.6 G/DL (3.4-5.0) L Globulin 3.9 g/dL Albumin/Globulin Ratio 0.2 (1.0-2.7) L Polychromasia 1+ Plan Problems: (1) Malnutrition Assessment & Plan: DAILY ESTIMATED NEEDS: Needs based on Advanced wounds, Underweight, CRITICAL CARE/ 49.5kg 25-35 kcals/kg [id number] total kcals 1.5-2.0 g protein/kg 74-99 g total protein 25-30 mL/kg 5329-3796 total fluid mLs NUTRITION DIAGNOSIS: (1) Increased kcal/prot needs R/T wound healing, sepsis as evidenced by pt w/ advanced wounds, 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 (2) Swallowing difficulty R/T respiratory status as evidenced trach/vent dep and PEG dep (3) Altered GI function R/T pneumatosis, GIB as evidenced by admitted w/ c/o coffee ground emesis, TF initiated at low rate, now @ goal. CURRENT TF:Glucerna 1.5 @50ml/hr x20 hrs ENTERAL NUTRITION RECOMMENDATIONS: Glucerna 1.5 @ 50ml/hr x 20 hrs to provide 1000ml, 1500 kcal, 82.3g pro, 759ml free H2O -> Maintain current TF to meet 100% est needs -> HOB over 30 degrees/ water flush per MD ADDITIONAL RECOMMENDATIONS: * Per SNF: HT=67", OH=309aqn (as of 12/21) Per Dec SNF record -> [id number], pt edematous, wt trending up Rec to RECALIBRATE bed scale for accurate CBW . * Rec to increase water flushes for elev NA (147) * Wound healing: add vit C 500mg BID + Gaetano 1pkt BID (2) Failure to thrive in adult (3) Decubitus skin ulcer (4) Sepsis Assessment & Plan: Patient presents with leukocytosis, lactic acidosis, abnormal labs. Altered mental status Continued malnutrition failure to thrive in adult Decubitus skin ulcers Patient evaluated full physical examination completed wounds unlikely etiology of patient's sepsis Micro noted Chest x-ray reviewed Trach in place on support Care plan initiated Discussed with PCP and consultants recommend SNF with hospice Patients condition continue to deteriorate Thank you for let me participation's care will continue to follow with recommendations Sher Keeen Mar 07, 2019 13:19
--- NOTE | 2019-03-07 14:07 | NUR ---
RD ASSESSMENT & RECOMMENDATIONS SEE CARE ACTIVITY FOR COMPLETE ASSESSMENT DAILY ESTIMATED NEEDS: Needs based on Advanced wounds, Underweight, CRITICAL CARE/ 49.5kg 25-35 kcals/kg 7236-7522 total kcals 1.5-2.0 g protein/kg 74-99 g total protein 25-30 mL/kg 1154-7079 total fluid mLs NUTRITION DIAGNOSIS: (1) Increased kcal/prot needs R/T wound healing, sepsis as evidenced by pt w/ advanced wounds, including full thickness wounds @ Rt elbow and sacrum, unstageable wounds @ RL ischium, RL tibia, RL heels. (2) Swallowing difficulty R/T respiratory status as evidenced trach/vent dep and PEG dep CURRENT TF:Glucerna 1.5 @50ml/hr x20 hrs ENTERAL NUTRITION RECOMMENDATIONS: Glucerna 1.5 @ 50ml/hr x 20 hrs to provide 1000ml, 1500 kcal, 82.3g pro, 759ml free H2O -> Maintain current TF to meet 100% est needs -> HOB over 30 degrees/ water flush per MD ADDITIONAL RECOMMENDATIONS: * Per SNF: HT=67", Wt trend per SNF: Dec=108#, Jan=131#, Feb=154# -> wt trending up, pt edematous * TXR pt to bed with bedscale, obtain calibrated bedscale wt * Wound healing: continue Vit C + ZnSO4/ ADD MARIE BID via PEG * Monitor K, need for TF change (episodes of hyperkalemia) .
[2019-03-07 16:00] VITALS: BP 109/64
--- NOTE | 2019-03-07 16:05 | NUR ---
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 98.1 HR 90 RR 20 B/P 100/47 AC 12 TV 500 FIO2 28% PEEP 5 WBC 18.1 H/H 7.1/22.1 NA 146 BUN 40 IS: IVF NS @ 50ML/HR VANCO IV AMIKACIN IV STEP DOWN STATUS
--- NOTE | 2019-03-07 18:58 | NUR ---
NURSE NOTES: Patient noted to be desaturating un the 70s while on the on the venturi mask, patient had his eyes closed, was not moving around in bed like his usual. RT called. Patient had agonal breathing, suctioned patient. Patient started to be bradycardic rate of 50-40s. Charge nurse informed.
--- NOTE | 2019-03-07 19:11 | NUR ---
NURSE NOTES: Patient with no pulse and no breathing. grant administrator Jayna at bedside.
--- NOTE | 2019-03-07 19:15 | NUR ---
NURSE NOTES: Dr. Skinner made aware of patient's passing at 19:11.
--- NOTE | 2019-03-07 19:23 | NUR ---
NURSE NOTES: [facility] called, spoke to Fariha, referral ID [id number].
--- NOTE | 2019-03-07 19:30 | NUR ---
NURSE NOTES: Received patient from NADINE Martin. Patient. Patient is aaox0, nonverbal, eyes not open, pupals sluggish, vss with no acute distress. Currently SR, trach to vent AC 12, TV 500, Fio2 28%, PEEP 5. Patient on g-tube running prescribed feeding at [facility]. Skin issues noted. Patient clean and in bed. Bed at its lowest position, call light in reach and x3 bed rails are up.
[2019-03-07 20:00] VITALS: BP 105/55
[2019-03-07] MEDS: Amikacin 1,000 MG in NS 110 ML IV SCH (20:47)
--- NOTE | 2019-03-07 21:30 | Progress Note ---
DATE: 03/07/2019 CARDIOLOGY PROGRESS NOTE SUBJECTIVE: The patient remains poorly responsive, on ventilator support via tracheostomy. Monitored rhythm sinus and sinus tachycardia with occasional ectopics. OBJECTIVE: VITAL SIGNS: Blood pressure 112/45, pulse 102, respirations 18. LUNGS: Thin secretions. Bilateral breath sounds. HEART: Regular rhythm and rate. Normal S1, S2. ABDOMEN: Soft. G-tube site intact. EXTREMITIES: No trace dependent edema. Right-sided greater than left weakness. LABORATORY DATA: White count 18, hemoglobin 7.1, platelet 173,000. Sodium 146, potassium 5.1, bicarb 27, BUN 40 creatinine 0.7. Albumin 0.6. IMPRESSION: 1. Severe protein-calorie malnutrition. 2. Multiorgan system failure. 3. Dehydration, better. 4. Acute myocardial infarction, likely due to hypoperfusion. 5. Acute on chronic diastolic congestive heart failure. 6. Paroxysmal atrial fibrillation. PLAN: 1. Prognosis is grave. 2. DNR appropriate. 3. Current therapy will include nutritional support by feeding tube. 4. Free water replacement based on clinical parameters and electrolyte assessment. 5. Antimicrobials. 6. Ventilator support. 7. Diltiazem for suppression of atrial arrhythmias and rate control in the event of recurring atrial fibrillation. Cody Melendez M.D. DR: PARVIN JOB#: [id number] CC:
--- NOTE | 2019-03-07 22:11 | Infectious Diseases Prog Note ---
Assessment/Plan Assessment/Plan ASSESSMENT/PLAN; 1. sepsis, pseudomonas bacteremia, gram neg sepsis, pseudomonas uti/pna, sirs, leukocytosis, multiple wounds - vancomycin, cefepime, amikacin, flagyl - day # 7 abx - f/u on cultures and labs, f/u chest x-ray - wound care per surgery and protocol, debridement if indicated, surgery f/u - persistent bacteremia - recheck blood cultures and CT abdomen and pelvis 2. trach, vent and respiratory failure. 3. Dysphagia, G-tube. 4. Wound care protocol. 5. History of decubitus. 6. hypercapnia 7. Blood pressure treatment per primary care team. 8. Depression. 9. Diastolic heart failure. 10. Coronary artery disease. 11. GERD. 12. Glaucoma. 13. GI bleed. 14. Osteoarthritis. 15. BPH. 16. Malnutrition. 17. Allergies to dorzolamide, lisinopril, timolol, tiotropium, Spiriva. 18. Family history is noncontributory. 19. Social history is negative. 20. MAR was noted. 21. Case was discussed with RN. 22. ICU care. 23. Continue treatment per primary consultants. 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 Subjective Constitutional: Reports: fatigue, other - trach and vent ; Denies: fever HEENT: Reports: congestion Respiratory: Reports: shortness of breath Cardiovascular: Reports: other - no pressors Gastrointestinal/Abdominal: Denies: nausea, diarrhea Genitourinary: Reports: other - + kline Neurologic: Reports: weakness Psychiatric: Reports: other - NA Skin: Denies: rash Hematologic: Denies: bleeding Musculoskeletal: Reports: other - NA Allergies: Coded Allergies: DORZOLAMIDE (Unverified Allergy, Unknown, 12/23/18) LISINOPRIL (Unverified Allergy, Unknown, 12/23/18) TIMOLOL (Unverified Allergy, Unknown, 12/23/18) TIOTROPIUM (Unverified Allergy, Unknown, 12/23/18) Objective Vital Signs Last 24 Hour Vital Signs Date Time Temp Pulse Resp B/P (MAP) Pulse Ox O2 Delivery O2 Flow Rate FiO2 03/07/19 20:00 82 03/07/19 20:00 98.4 85 17 105/55 (72) 100 03/07/19 20:00 Mechanical Ventilator 1/28/20 20:00 28 03/07/19 19:21 90 17 99 Mechanical Ventilator 28 90 17 28 03/07/19 18:04 92 109/64 03/07/19 17:20 92 16 28 03/07/19 16:00 85 03/07/19 16:00 Mechanical Ventilator 03/07/19 16:00 28 03/07/19 16:00 98.2 94 20 109/64 (79) 100 03/07/19 15:02 88 17 28 03/07/19 13:16 91 19 100 Mechanical Ventilator 28 99 17 28 03/07/19 12:25 90 100/47 03/07/19 12:00 Mechanical Ventilator 03/07/19 12:00 28 03/07/19 12:00 87 03/07/19 12:00 98.1 90 20 100/47 (64) 100 03/07/19 11:02 78 18 28 03/07/19 09:20 87 17 28 03/07/19 08:00 85 03/07/19 08:00 98.2 93 20 108/45 (66) 100 03/07/19 08:00 28 03/07/19 08:00 Mechanical Ventilator 03/07/19 07:22 90 19 100 Mechanical Ventilator 28 95 14 28 03/07/19 05:50 102 112/45 03/07/19 05:20 101 18 28 03/07/19 04:00 28 03/07/19 04:00 95 03/07/19 04:00 Mechanical Ventilator 03/07/19 04:00 98.8 107 20 109/53 (71) 100 03/07/19 03:05 101 19 28 03/07/19 01:29 106 19 100 Mechanical Ventilator 28 109 19 28 03/07/19 00:00 Mechanical Ventilator 03/07/19 00:00 118 03/07/19 00:00 99.1 104 20 100/48 (65) 99 03/07/19 00:00 28 03/06/19 23:16 116 115/57 03/06/19 23:00 104 18 28 Height (Feet): 5 Height (Inches): 7.00 Weight (Pounds): 154 General Appearance: other - + trach and vent HEENT: normocephalic, atraumatic, no JVD, status post trach Respiratory/Chest: crackles/rales, rhonchi - bilaterally Cardiovascular: normal rate, regular rhythm, no gallop/murmur, no JVD Abdomen: normal bowel sounds, soft, non tender, no organomegaly, non distended Genitourinary: other - + kline - urine slt cloudy Extremities: no cyanosis Skin: no rash, no ulcers, ulcers - wounds covered Neurologic/Psychiatric: motor weakness, other - opens eyes Lymphatic: no neck adenopathy Musculoskeletal: no effusion Objective 03/01/19 - chest x-ray - Procedure: XRAY Chest 1v Indication: Dyspnea Comparison: 03/01/2019 at 02:53 A single view chest radiograph was obtained. Findings: 15:20 Lungs are hyperexpanded. 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 This is probably chronic and due to pleural thickening as the configuration has not changed over several days. Heart size appears stable. Tracheostomy is again noted. Pulmonary vascularity appears mildly prominent as it did previously. IMPRESSION: No significant change from the earlier film 03/03/19 - chest x-ray - Procedure: XRAY Chest 1v Indication: Shortness of breath Technique: One view of the chest Comparison: 03/01/2019 Findings: There is increasing hazy parenchymal consolidation at both lung bases. There are again demonstrated bilateral pleural effusions, appearing stable on the left and likely slightly increased on the right. Tracheostomy remains. The heart size is normal Impression: Increasing bilateral basilar hazy infiltrates and increasing right pleural fluid, over one day. Other stable findings as noted Chest x-ray - 03/06/19 - IMPRESSION: COPD. CHF with bilateral pleural effusions suspected. No significant change from the last exam Microbiology Date/Time Source Procedure Growth Status 03/06/19 03:55 Blood Blood Culture - Preliminary Resulted 03/01/19 07:33 Sputum Gram Stain - Final Complete 03/01/19 07:33 Sputum Culture - Final Pseudomonas Aeruginosa Complete 03/01/19 03:45 Urine,Clean Catch Urine Culture - Final Pseudomonas Aeruginosa Complete 03/01/19 04:17 Rectum - Final NO CARBAPENEM-RESISTANT ENTEROBACTERI... Complete Microbiology Date/Time Source Procedure Growth Status 03/06/19 03:55 Blood Blood Culture - Preliminary Resulted 03/06/19 03:50 Blood Blood Culture - Preliminary NO GROWTH AFTER 24 HOURS Resulted Laboratory Tests Test 03/07/19 04:50 03/07/19 07:15 White Blood Count 17.8 K/UL (4.8-10.8) #H 18.1 K/UL (4.8-10.8) H Red Blood Count 2.65 M/UL (4.70-6.10) L 2.62 M/UL (4.70-6.10) L Hemoglobin 7.1 G/DL (14.2-18.0) L 7.1 G/DL (14.2-18.0) L Hematocrit 22.5 % (42.0-52.0) L 22.1 % (42.0-52.0) L Mean Corpuscular Volume 85 FL (80-99) 84 FL (80-99) Mean Corpuscular Hemoglobin 26.9 PG (27.0-31.0) L 27.3 PG (27.0-31.0) Mean Corpuscular Hemoglobin Concent 31.6 G/DL (32.0-36.0) L 32.4 G/DL (32.0-36.0) Red Cell Distribution Width 17.9 % (11.6-14.8) H 18.4 % (11.6-14.8) H Platelet Count 174 K/UL (150-450) 173 K/UL (150-450) Mean Platelet Volume 9.7 FL (6.5-10.1) 9.9 FL (6.5-10.1) Neutrophils (%) (Auto) % (45.0-75.0) % (45.0-75.0) Lymphocytes (%) (Auto) % (20.0-45.0) % (20.0-45.0) Monocytes (%) (Auto) % (1.0-10.0) % (1.0-10.0) Eosinophils (%) (Auto) % (0.0-3.0) % (0.0-3.0) Basophils (%) (Auto) % (0.0-2.0) % (0.0-2.0) Differential Total Cells Counted 100 100 Neutrophils % (Manual) 57 % (45-75) 65 % (45-75) Lymphocytes % (Manual) 17 % (20-45) L 15 % (20-45) L Monocytes % (Manual) 20 % (1-10) H 17 % (1-10) H Eosinophils % (Manual) 1 % (0-3) 1 % (0-3) Basophils % (Manual) 1 % (0-2) 1 % (0-2) Metamyelocytes % 2 % (0-0) H Myelocytes % 2 % (0-0) H Band Neutrophils 0 % (0-8) 1 % (0-8) Nucleated Red Blood Cells 1 /100 WBC 1 /100 WBC Platelet Estimate Adequate Adequate Platelet Morphology Normal Normal Hypochromasia 3+ 3+ Anisocytosis 2+ 2+ Sodium Level 146 MMOL/L (136-145) H Potassium Level 5.1 MMOL/L (3.5-5.1) Chloride Level 116 MMOL/L (98-107) H Carbon Dioxide Level 27 MMOL/L (21-32) Anion Gap 4 mmol/L (5-15) L Blood Urea Nitrogen 40 mg/dL (7-18) H Creatinine 0.7 MG/DL (0.55-1.30) Estimat Glomerular Filtration Rate mL/min (>60) Glucose Level 130 MG/DL (74-106) H Calcium Level 6.8 MG/DL (8.5-10.1) L Magnesium Level 2.5 MG/DL (1.8-2.4) H Total Bilirubin 0.4 MG/DL (0.2-1.0) Aspartate Amino Transf (AST/SGOT) 23 U/L (15-37) Alanine Aminotransferase (ALT/SGPT) 22 U/L (12-78) Alkaline Phosphatase 310 U/L (46-116) H Total Protein 4.5 G/DL (6.4-8.2) #L Albumin 0.6 G/DL (3.4-5.0) L Globulin 3.9 g/dL Albumin/Globulin Ratio 0.2 (1.0-2.7) L Polychromasia 1+ Current Medications Medications (Trade) Dose Ordered Sig/Katie Route PRN Reason Start Time Stop Time Status Last Admin Dose Admin Acetaminophen (Tylenol) 650 mg Q4H PRN GT Mild Pain/Temp > 100.5 03/04/19 06:30 04/03/19 06:29 03/06/19 23:01 Amikacin Protocol (Amikacin pharmacy to dose) 1 ea DAILY PRN MISC Per rx protocol 03/01/19 18:30 03/31/19 18:29 Amikacin Sulfate 1000 mg/Sodium Chloride 114 ml @ 114 mls/hr Q36H IV 03/01/19 20:00 03/10/19 19:59 03/07/19 20:47 Ascorbic Acid (Vitamin C) 250 mg EVERY 12 HOURS ORAL 03/06/19 21:00 04/02/19 17:59 03/07/19 20:47 Aspirin (ASA) 81 mg DAILY NG 03/06/19 09:00 04/05/19 08:59 03/07/19 08:29 Cefepime HCl 1 gm/ Dextrose 50 ml @ 100 mls/hr Q12H IVPB 03/01/19 23:00 03/08/19 22:59 03/07/19 21:43 Dextrose (Dextrose 50%) 25 ml Q30M PRN IV Hypoglycemia 03/01/19 12:30 03/31/19 12:29 03/04/19 18:50 Dextrose (Dextrose 50%) 50 ml Q30M PRN IV Hypoglycemia 03/01/19 12:30 03/31/19 12:29 Diltiazem HCl (Cardizem) 60 mg EVERY 6 HOURS GT 03/05/19 12:00 04/04/19 11:59 03/07/19 18:04 Heparin Sodium (Porcine) (Heparin 5000 units/ml) 5,000 units EVERY 12 HOURS SUBQ 03/01/19 21:00 03/31/19 20:59 03/07/19 20:50 Insulin Aspart (NovoLOG) EVERY 6 HOURS SUBQ 03/04/19 18:00 03/31/19 16:29 Ipratropium [place] (Atrovent) 500 mcg Q4H PRN HHN Shortness of Breath 03/06/19 14:30 03/11/19 14:29 Ipratropium [place] (Atrovent) 500 mcg Q6HRT HHN 03/06/19 19:00 03/11/19 18:59 03/07/19 19:21 Metronidazole (Flagyl) 500 mg EVERY 8 HOURS ORAL 03/03/19 22:00 03/10/19 21:59 03/07/19 21:47 Phosphorus (Phospha 250 Neutral) 250 mg EVERY 8 HOURS GT 03/06/19 14:00 04/01/19 08:59 03/07/19 14:15 Sodium Chloride 1,000 ml @ 125 mls/hr Q8H IV 03/06/19 18:15 04/05/19 18:14 03/07/19 18:04 Vancomycin HCl (Vanco rx to dose) 1 ea DAILY PRN MISC Per rx protocol 03/01/19 12:15 03/31/19 12:14 Vancomycin HCl 1 gm/Sodium Chloride 275 ml @ 183.708 mls/hr Q24H IVPB 03/02/19 05:00 03/12/19 04:59 03/07/19 04:27 Zinc Sulfate (Zinc Sulfate) 220 mg DAILY ORAL 03/04/19 09:00 03/14/19 08:59 03/07/19 08:24 Randal Pool MD Mar 07, 2019 22:11
[2019-03-07 23:15] LABS: APPEARANCE,URINE SLIGHTLY CLOUDY; BILIRUBIN, URINE NEGATIVE (NEGATIVE); GLUCOSE, URINE (UA) NEGATIVE (NEGATIVE); KETONES,URINE 2+ (NEGATIVE); LEUKOCYTE ESTERASE ,URINE 2+ (NEGATIVE); NITRITE,URINE NEGATIVE (NEGATIVE); PH,URINE 5 (4.5-8.0); PROTEIN,URINE 2+ (NEGATIVE); UROBILINOGEN,URINE NORMAL MG/DL (0.0-1.0)
[2019-03-08] VITALS: BP 107/56
[2019-03-08 00:28] LABS: COLOR,URINE YELLOW
[2019-03-08] MEDS: dilTIAZem HCl 60mg tab GT SCH ×5 (00:52→23:43)
[2019-03-08] MEDS: Ipratropium 0.02% Inh Soln 2.5ml UD HHN SCH ×4 (01:32→19:23)
[2019-03-08 04:00] VITALS: BP 124/60
[2019-03-08] MEDS: Vancomycin 1 GM in NS 275 ML IVPB SCH (05:01)
[2019-03-08] MEDS: NovoLOG Insulin Flexpen SUBQ SCH ×5 (06:00→23:43)
[2019-03-08] MEDS: Phospha 250 Neutral tab GT SCH ×3 (06:15→21:04)
[2019-03-08] MEDS: metroNIDAZOLE 500mg tab ORAL SCH ×3 (06:24→21:04)
[2019-03-08 07:25] LABS: HEMATOCRIT 22.8 % (42.0-52.0); HEMOGLOBIN 7.2 G/DL (14.2-18.0); MEAN CORPUSCULAR VOLUME 85 FL (80-99); PLATELET COUNT 170 K/UL (150-450)
[2019-03-08 07:29] LABS: ALANINE AMINOTRANSFERASE 24 U/L (12-78); ALBUMIN 0.7 G/DL (3.4-5.0); ALBUMIN/GLOBULIN RATIO 0.2 (1.0-2.7); ALKALINE PHOSPHATASE 252 U/L (46-116); ANION GAP 5 mmol/L (5-15); ASPARTATE AMINO TRANSFERASE 24 U/L (15-37); BILIRUBIN,TOTAL 0.5 MG/DL (0.2-1.0); BLOOD UREA NITROGEN 43 mg/dL (7-18); CARBON DIOXIDE 26 MMOL/L (21-32); CHLORIDE 114 MMOL/L (98-107); CREATININE 0.6 MG/DL (0.55-1.30); POTASSIUM 5.1 MMOL/L (3.5-5.1); SODIUM 145 MMOL/L (136-145)
[2019-03-08 07:34] LABS: WHITE BLOOD COUNT 28.2 K/UL (4.8-10.8)
--- NOTE | 2019-03-08 07:38 | NUR ---
HAND-OFF: Report given to NADINE Forman.
[2019-03-08 08:00] VITALS: BP 104/64
[2019-03-08] MEDS: Aspirin Baby 81mg NG SCH (09:50)
[2019-03-08] MEDS: Ascorbic Acid 500mg tab ORAL SCH ×2 (09:50→21:04)
[2019-03-08] MEDS: Zinc Sulfate 220mg cap ORAL SCH (09:50)
[2019-03-08] MEDS: Heparin 5000 units/ml inj SUBQ SCH ×2 (09:56→21:06)
--- NOTE | 2019-03-08 11:24 | Pulmonology Progress Note ---
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 SEPSIS: PsA UTI and sepsis - persistent bacteremia 2. Lactic acidosis - RESOLVED 3. Tracheostomy status. 4. Dysphagia, status post G-tube. 5. Encephalopathy. 6. Multiple decubitus ulcer. 7. Glaucoma. 8. Hypertension, CAD, CHF with diastolic dysfunction. 9. DNAR. TREATMENT PLAN: 1. Ventilatory support, settings reviewed. 2. Titrate O2. 3. Atrovent HHN's 4. Abx per ID, follow up cultures and CT AP given persistent bacteremia 5. Monitor volumes and renal function, IV fluid hydration. 6. Wound care 7. TF's 8. Heparin subcutaneous for DVT prophylaxis. 9. Director Of Market Research recs 10. DNAR, continue to discuss goals of care, consider transition back to SNF with hospice - ongoing discussions with niece Subjective Allergies: Coded Allergies: DORZOLAMIDE (Unverified Allergy, Unknown, 12/23/18) LISINOPRIL (Unverified Allergy, Unknown, 12/23/18) TIMOLOL (Unverified Allergy, Unknown, 12/23/18) TIOTROPIUM (Unverified Allergy, Unknown, 12/23/18) Subjective WCt 28 CT AP pending, still with PsA in the blood AFVSS O2 needs stable on vent No sig secretions Objective Last 24 Hour Vital Signs Date Time Temp Pulse Resp B/P (MAP) Pulse Ox O2 Delivery O2 Flow Rate FiO2 03/08/19 09:03 80 14 28 03/08/19 08:00 97.4 90 18 104/64 (77) 94 03/08/19 08:00 95 03/08/19 08:00 Mechanical Ventilator 03/08/19 08:00 28 03/08/19 07:23 77 15 100 Mechanical Ventilator 28 80 15 28 03/08/19 06:14 87 124/60 03/08/19 05:25 87 16 98 Mechanical Ventilator 28 91 15 28 03/08/19 04:00 83 03/08/19 04:00 97.8 87 15 124/60 (81) 98 03/08/19 04:00 Mechanical Ventilator 03/08/19 04:00 28 03/08/19 02:46 84 16 98 Mechanical Ventilator 28 91 15 28 03/08/19 01:30 81 15 98 Mechanical Ventilator 28 91 15 28 03/08/19 00:52 92 127/65 03/08/19 00:00 91 03/08/19 00:00 98.1 105 15 107/56 (73) 99 03/08/19 00:00 Mechanical Ventilator 03/07/19 23:16 88 17 28 03/07/19 21:08 89 17 28 03/07/19 20:00 82 03/07/19 20:00 98.4 85 17 105/55 (72) 100 03/07/19 20:00 Mechanical Ventilator 03/07/19 20:00 28 03/07/19 19:21 90 17 99 Mechanical Ventilator 28 90 17 28 03/07/19 18:04 92 109/64 03/07/19 17:20 92 16 28 03/07/19 16:00 85 03/07/19 16:00 Mechanical Ventilator 03/07/19 16:00 28 03/07/19 16:00 98.2 94 20 109/64 (79) 100 03/07/19 15:02 88 17 28 03/07/19 13:16 91 19 100 Mechanical Ventilator 28 99 17 28 03/07/19 12:25 90 100/47 03/07/19 12:00 Mechanical Ventilator 03/07/19 12:00 28 03/07/19 12:00 87 03/07/19 12:00 98.1 90 20 100/47 (64) 100 Intake and Output 03/07/19 03/08/19 19:00 07:00 Intake Total 1567.5 ml 152.3333 ml Output Total 450 ml 700 ml Balance 1117.5 ml -547.6667 ml Free Water 180 ml IV Total 987.5 ml 152.3333 ml Tube Feeding 400 ml Output Urine Total 450 ml 700 ml General Appearance: cachetic - on vent HEENT: status post trach Respiratory/Chest: crackles/rales Cardiovascular: normal peripheral pulses, normal rate, regular rhythm Abdomen: normal bowel sounds, soft, non tender, no organomegaly, non distended , no mass, other - GT Extremities: no cyanosis, no clubbing, no edema Microbiology Date/Time Source Procedure Growth Status 03/06/19 03:55 Blood Blood Culture - Final Pseudomonas Aeruginosa Complete 1/27/20 03:50 Blood Blood Culture - Preliminary NO GROWTH AFTER 48 HOURS Resulted Laboratory Tests 03/07/19 22:30: Urine Color Yellow, Urine Appearance Slightly cloudy, Urine pH 5, Urine Specific [place] 1.020, Urine Protein 2+H, Urine Glucose (UA) Negative, Urine Ketones 2+H, Urine Blood 5+H, Urine Nitrite Negative, Urine Bilirubin Negative, Urine Urobilinogen Normal, Urine Leukocyte Esterase 2+H, Urine RBC 20-30H, Urine WBC 15-20H, Urine Squamous Epithelial Cells Few, Urine Amorphous Sediment ManyH, Urine Bacteria ManyH, Urine Coarse Granular Casts 10-15H, Urine Yeast ManyH 03/08/19 06:30: White Blood Count 28.2#*H, Red Blood Count 2.70L, Hemoglobin 7.2L, Hematocrit 22.8L, Mean Corpuscular Volume 85, Mean Corpuscular Hemoglobin 26.8L, Mean Corpuscular Hemoglobin Concent 31.7L, Red Cell Distribution Width 18.0H, Platelet Count 170, Mean Platelet Volume 10.5H, Neutrophils (%) (Auto) , Lymphocytes (%) (Auto) , Monocytes (%) (Auto) , Eosinophils (%) (Auto) , Basophils (%) (Auto) , Differential Total Cells Counted 100, Neutrophils % ( Manual) 61, Lymphocytes % (Manual) 14L, Monocytes % (Manual) 13H, Eosinophils % (Manual) 0, Basophils % (Manual) 0, Band Neutrophils 12H, Platelet Estimate Adequate, Platelet Morphology Normal, Polychromasia 2+, Hypochromasia 1+, Anisocytosis 1+, Sodium Level 145, Potassium Level 5.1, Chloride Level 114H, Carbon Dioxide Level 26, Anion Gap 5, Blood Urea Nitrogen 43H, Creatinine 0.6, Estimat Glomerular Filtration Rate , Glucose Level 112H, Calcium Level 7.0L, Total Bilirubin 0.5, Aspartate Amino Transf (AST/SGOT) 24, Alanine Aminotransferase (ALT/SGPT) 24, Alkaline Phosphatase 252H, Total Protein 4.8L, Albumin 0.7L, Globulin 4.1, Albumin/Globulin Ratio 0.2L Current Medications Medications (Trade) Dose Ordered Sig/Katie Route PRN Reason Start Time Stop Time Status Last Admin Dose Admin Acetaminophen (Tylenol) 650 mg Q4H PRN GT Mild Pain/Temp > 100.5 03/04/19 06:30 2/24/20 06:29 03/06/19 23:01 Amikacin Protocol (Amikacin pharmacy to dose) 1 ea DAILY PRN MISC Per rx protocol 03/01/19 18:30 03/31/19 18:29 Amikacin Sulfate 1000 mg/Sodium Chloride 114 ml @ 114 mls/hr Q36H IV 03/01/19 20:00 03/10/19 19:59 03/07/19 20:47 Ascorbic Acid (Vitamin C) 250 mg EVERY 12 HOURS ORAL 03/06/19 21:00 04/02/19 17:59 03/08/19 09:50 Aspirin (ASA) 81 mg DAILY NG 03/06/19 09:00 04/05/19 08:59 03/08/19 09:50 Cefepime HCl 1 gm/ Dextrose 50 ml @ 100 mls/hr Q12H IVPB 03/07/19 23:00 03/14/19 22:59 03/08/19 10:29 Dextrose (Dextrose 50%) 25 ml Q30M PRN IV Hypoglycemia 03/01/19 12:30 03/31/19 12:29 03/04/19 18:50 Dextrose (Dextrose 50%) 50 ml Q30M PRN IV Hypoglycemia 03/01/19 12:30 03/31/19 12:29 Diltiazem HCl (Cardizem) 60 mg EVERY 6 HOURS GT 03/05/19 12:00 04/04/19 11:59 03/08/19 06:14 Heparin Sodium (Porcine) (Heparin 5000 units/ml) 5,000 units EVERY 12 HOURS SUBQ 03/01/19 21:00 03/31/19 20:59 03/08/19 09:56 Insulin Aspart (NovoLOG) EVERY 6 HOURS SUBQ 03/04/19 18:00 03/31/19 16:29 Ipratropium [place] (Atrovent) 500 mcg Q4H PRN HHN Shortness of Breath 03/06/19 14:30 03/11/19 14:29 Ipratropium [place] (Atrovent) 500 mcg Q6HRT HHN 03/06/19 19:00 03/11/19 18:59 03/08/19 07:02 Metronidazole (Flagyl) 500 mg EVERY 8 HOURS ORAL 03/03/19 22:00 03/10/19 21:59 03/08/19 06:24 Phosphorus (Phospha 250 Neutral) 250 mg EVERY 8 HOURS GT 03/06/19 14:00 04/01/19 08:59 03/08/19 06:15 Sodium Chloride 1,000 ml @ 125 mls/hr Q8H IV 03/06/19 18:15 04/05/19 18:14 03/08/19 09:58 Vancomycin HCl (Vanco rx to dose) 1 ea DAILY PRN MISC Per rx protocol 03/01/19 12:15 03/31/19 12:14 Vancomycin HCl 1 gm/Sodium Chloride 275 ml @ 183.708 mls/hr Q24H IVPB 03/02/19 05:00 03/12/19 04:59 03/08/19 05:01 Zinc Sulfate (Zinc Sulfate) 220 mg DAILY ORAL 03/04/19 09:00 03/14/19 08:59 03/08/19 09:50 Josemanuel Lopes MD Mar 08, 2019 11:24
[2019-03-08 12:00] VITALS: BP 116/64
--- NOTE | 2019-03-08 14:21 | NUR ---
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 97.4 HR 81 RR 18 B/P 116/64 AC 12 TV 500 FIO2 28% PEEP 5 WBC 28.2 ALK PHOS 252 IS: CEFEPIME IV VANCO IV IVF NS@ 125ML/HR AMIKACIN IV FLAGYL STEP DOWN STATUS
--- NOTE | 2019-03-08 14:52 | Surgery Progress Note ---
Surgery Progress Note Subjective Additional Comments no acute events comfortable appearing but ill labs worsening prognosis guarded Objective Last 24 Hour Vital Signs Date Time Temp Pulse Resp B/P (MAP) Pulse Ox O2 Delivery O2 Flow Rate FiO2 03/08/19 14:15 78 116/64 03/08/19 13:21 78 20 100 Mechanical Ventilator 28 82 20 28 03/08/19 12:00 28 03/08/19 12:00 97.4 87 18 116/64 (81) 97 03/08/19 12:00 Mechanical Ventilator 03/08/19 11:20 84 14 28 03/08/19 09:03 80 14 28 03/08/19 08:00 97.4 90 18 104/64 (77) 94 03/08/19 08:00 95 03/08/19 08:00 Mechanical Ventilator 03/08/19 08:00 28 03/08/19 07:23 77 15 100 Mechanical Ventilator 28 80 15 28 03/08/19 06:14 87 124/60 03/08/19 05:25 87 16 98 Mechanical Ventilator 28 91 15 28 03/08/19 04:00 83 03/08/19 04:00 97.8 87 15 124/60 (81) 98 03/08/19 04:00 Mechanical Ventilator 03/08/19 04:00 28 03/08/19 02:46 84 16 98 Mechanical Ventilator 28 91 15 28 03/08/19 01:30 81 15 98 Mechanical Ventilator 28 91 15 28 03/08/19 00:52 92 127/65 03/08/19 00:00 91 03/08/19 00:00 98.1 105 15 107/56 (73) 99 03/08/19 00:00 Mechanical Ventilator 03/07/19 23:16 88 17 28 03/07/19 21:08 89 17 28 03/07/19 20:00 82 03/07/19 20:00 98.4 85 17 105/55 (72) 100 03/07/19 20:00 Mechanical Ventilator 03/07/19 20:00 28 03/07/19 19:21 90 17 99 Mechanical Ventilator 28 90 17 28 03/07/19 18:04 92 109/64 03/07/19 17:20 92 16 28 03/07/19 16:00 85 03/07/19 16:00 Mechanical Ventilator 03/07/19 16:00 28 03/07/19 16:00 98.2 94 20 109/64 (79) 100 03/07/19 15:02 88 17 28 I&O Intake and Output 03/07/19 03/08/19 19:00 07:00 Intake Total 1567.5 ml 152.3333 ml Output Total 450 ml 700 ml Balance 1117.5 ml -547.6667 ml Free Water 180 ml IV Total 987.5 ml 152.3333 ml Tube Feeding 400 ml Output Urine Total 450 ml 700 ml Dressing: other Wound: other Drains: other Cardiovascular: RSR, other Respiratory: decreased breath sounds, other Abdomen: non-tender, other, decreased bowel sounds Extremities: no cyanosis, other Laboratory Tests Test 03/07/19 22:30 03/08/19 06:30 Urine Color Yellow Urine Appearance Slightly cloudy Urine pH 5 (4.5-8.0) Urine Specific [place] 1.020 (1.005-1.035) Urine Protein 2+ (NEGATIVE) H Urine Glucose (UA) Negative (NEGATIVE) Urine Ketones 2+ (NEGATIVE) H Urine Blood 5+ (NEGATIVE) H Urine Nitrite Negative (NEGATIVE) Urine Bilirubin Negative (NEGATIVE) Urine Urobilinogen Normal MG/DL (0.0-1.0) Urine Leukocyte Esterase 2+ (NEGATIVE) H Urine RBC 20-30 /HPF (0 - 0) H Urine WBC 15-20 /HPF (0 - 0) H Urine Squamous Epithelial Cells Few /LPF (NONE/OCC) Urine Amorphous Sediment Many /LPF (NONE) H Urine Bacteria Many /HPF (NONE) H Urine Coarse Granular Casts 10-15 /LPF (NONE) H Urine Yeast Many /HPF (NONE) H White Blood Count 28.2 K/UL (4.8-10.8) #*H Red Blood Count 2.70 M/UL (4.70-6.10) L Hemoglobin 7.2 G/DL (14.2-18.0) L Hematocrit 22.8 % (42.0-52.0) L Mean Corpuscular Volume 85 FL (80-99) Mean Corpuscular Hemoglobin 26.8 PG (27.0-31.0) L Mean Corpuscular Hemoglobin Concent 31.7 G/DL (32.0-36.0) L Red Cell Distribution Width 18.0 % (11.6-14.8) H Platelet Count 170 K/UL (150-450) Mean Platelet Volume 10.5 FL (6.5-10.1) H Neutrophils (%) (Auto) % (45.0-75.0) Lymphocytes (%) (Auto) % (20.0-45.0) Monocytes (%) (Auto) % (1.0-10.0) Eosinophils (%) (Auto) % (0.0-3.0) Basophils (%) (Auto) % (0.0-2.0) Differential Total Cells Counted 100 Neutrophils % (Manual) 61 % (45-75) Lymphocytes % (Manual) 14 % (20-45) L Monocytes % (Manual) 13 % (1-10) H Eosinophils % (Manual) 0 % (0-3) Basophils % (Manual) 0 % (0-2) Band Neutrophils 12 % (0-8) H Platelet Estimate Adequate Platelet Morphology Normal Polychromasia 2+ Hypochromasia 1+ Anisocytosis 1+ Sodium Level 145 MMOL/L (136-145) Potassium Level 5.1 MMOL/L (3.5-5.1) Chloride Level 114 MMOL/L (98-107) H Carbon Dioxide Level 26 MMOL/L (21-32) Anion Gap 5 mmol/L (5-15) Blood Urea Nitrogen 43 mg/dL (7-18) H Creatinine 0.6 MG/DL (0.55-1.30) Estimat Glomerular Filtration Rate mL/min (>60) Glucose Level 112 MG/DL (74-106) H Calcium Level 7.0 MG/DL (8.5-10.1) L Total Bilirubin 0.5 MG/DL (0.2-1.0) Aspartate Amino Transf (AST/SGOT) 24 U/L (15-37) Alanine Aminotransferase (ALT/SGPT) 24 U/L (12-78) Alkaline Phosphatase 252 U/L (46-116) H Total Protein 4.8 G/DL (6.4-8.2) L Albumin 0.7 G/DL (3.4-5.0) L Globulin 4.1 g/dL Albumin/Globulin Ratio 0.2 (1.0-2.7) L Plan Problems: (1) Malnutrition Assessment & Plan: DAILY ESTIMATED NEEDS: Needs based on Advanced wounds, Underweight, CRITICAL CARE/ 49.5kg 25-35 kcals/kg 2562-4455 total kcals 1.5-2.0 g protein/kg 74-99 g total protein 25-30 mL/kg 0268-7052 total fluid mLs NUTRITION DIAGNOSIS: (1) Increased kcal/prot needs R/T wound healing, sepsis as evidenced by pt w/ advanced wounds, 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 (2) Swallowing difficulty R/T respiratory status as evidenced trach/vent dep and PEG dep (3) Altered GI function R/T pneumatosis, GIB as evidenced by admitted w/ c/o coffee ground emesis, TF initiated at low rate, now @ goal. CURRENT TF:Glucerna 1.5 @50ml/hr x20 hrs ENTERAL NUTRITION RECOMMENDATIONS: Glucerna 1.5 @ 50ml/hr x 20 hrs to provide 1000ml, 1500 kcal, 82.3g pro, 759ml free H2O -> Maintain current TF to meet 100% est needs -> HOB over 30 degrees/ water flush per MD ADDITIONAL RECOMMENDATIONS: * Per SNF: HT=67", PE=328cdi (as of 12/21) Per Dec SNF record -> [id number], pt edematous, wt trending up Rec to RECALIBRATE bed scale for accurate CBW . * Rec to increase water flushes for elev NA (147) * Wound healing: add vit C 500mg BID + Gaetano 1pkt BID (2) Failure to thrive in adult (3) Decubitus skin ulcer (4) Sepsis Assessment & Plan: Patient presents with leukocytosis, lactic acidosis, abnormal labs. Altered mental status Continued malnutrition failure to thrive in adult Decubitus skin ulcers Patient evaluated full physical examination completed wounds unlikely etiology of patient's sepsis Micro noted Chest x-ray reviewed Trach in place on support Care plan initiated Discussed with PCP and consultants recommend SNF with hospice Patients condition continue to deteriorate Thank you for let me participation's care will continue to follow with recommendations Sher Keene Mar 08, 2019 14:52
[2019-03-08 16:00] VITALS: BP 124/59
--- NOTE | 2019-03-08 17:00 | NUR ---
NURSE NOTES: PT BS 70, GIVEN D 50 1 AMPULE.PT IS NPO SCHEDULE FO CT OF ABD .WILL REASSESSED BS IN 15 MINUTES. WILL CONT TO MONITOR.
--- NOTE | 2019-03-08 17:30 | NUR ---
NURSE NOTES: RE-ASSESSED BS 136. PT ESCORTED VIA GURNEY TO CT DPT ON STABLE CONDITION ASSISTED WITH RT ,TRANSPORTER STAFF AND SENIOR TECHNICAL SPECIALIST . PT HAD CT OF ABD AND PELVIS PER M.D ORDERS. PT TOLERATED WELL PROCEDURE. PT IS DNR STATUS. NO ACUTE DISTRESS NOTED AT THIS TIME. WILL CONT TO MONITOR.
--- NOTE | 2019-03-08 18:00 | NUR ---
NURSE NOTES:PLACED A TELEPHONE CALL TO DR GALE AND MADE AWARE & NOTIFIED REGARDING PT BS 70 AND GIVEN D50 1 AMPULE ,THEM REASSESSED BS 136. REC,D TO AM LAB,S CBC ,BMP IN AM. WILL CONT TO MONITOR.
--- NOTE | 2019-03-08 19:13 | Cardiology Progress Note ---
Assessment/Plan Problem List: (1) Paroxysmal atrial fibrillation (2) Atrial flutter (3) Ventilator dependent (4) Altered level of consciousness (5) Sepsis Assessment & Plan: + bld, sputum cx for Pseudomonas (6) Leukocytosis Status: not improved, unchanged Status Narrative Pt w/ respiratory failure, vent-dependent, on chronic g tube feeds, encephalopathic, and now w/ pneumonia/sepsis. Worsening leukocytosis noted. Mild troponin elevation - c/w demand ischemia Has hyperkalemia, and hypernatremia - resolving He had AF /AFL over past few days , but is currently in NSR Assessment/Plan REc: continue iv antibiotics, vent support, management as per primary team. Continue diltiazem for rate control if AF/ AFL recur No anticoagulation, as pt anemic and w/ high bleeding risk Subjective ROS Limited/Unobtainable: Yes Subjective Cardiology for Dr Melendez Intubated, no responsive to voice Objective Last 24 Hour Vital Signs Date Time Temp Pulse Resp B/P (MAP) Pulse Ox O2 Delivery O2 Flow Rate FiO2 03/08/19 17:20 77 14 28 03/08/19 16:00 28 03/08/19 16:00 Mechanical Ventilator 03/08/19 16:00 97.3 86 18 124/59 (80) 94 03/08/19 15:21 82 15 28 03/08/19 14:15 78 116/64 03/08/19 13:21 78 20 100 Mechanical Ventilator 28 82 20 28 03/08/19 12:00 28 03/08/19 12:00 97.4 87 18 116/64 (81) 97 03/08/19 12:00 Mechanical Ventilator 03/08/19 12:00 85 03/08/19 11:20 84 14 28 03/08/19 09:03 80 14 28 03/08/19 08:00 97.4 90 18 104/64 (77) 94 03/08/19 08:00 95 03/08/19 08:00 Mechanical Ventilator 03/08/19 08:00 28 03/08/19 07:23 77 15 100 Mechanical Ventilator 28 80 15 28 03/08/19 06:14 87 124/60 03/08/19 05:25 87 16 98 Mechanical Ventilator 28 91 15 28 03/08/19 04:00 83 03/08/19 04:00 97.8 87 15 124/60 (81) 98 03/08/19 04:00 Mechanical Ventilator 03/08/19 04:00 28 03/08/19 02:46 84 16 98 Mechanical Ventilator 28 91 15 28 03/08/19 01:30 81 15 98 Mechanical Ventilator 28 91 15 28 03/08/19 00:52 92 127/65 03/08/19 00:00 91 03/08/19 00:00 98.1 105 15 107/56 (73) 99 03/08/19 00:00 Mechanical Ventilator 03/07/19 23:16 88 17 28 03/07/19 21:08 89 17 28 03/07/19 20:00 82 03/07/19 20:00 98.4 85 17 105/55 (72) 100 03/07/19 20:00 Mechanical Ventilator 03/07/19 20:00 28 03/07/19 19:21 90 17 99 Mechanical Ventilator 28 90 17 28 General Appearance: on vent Neck: other - on vent Rhythm: NSR Cardiovascular: normal rate, regular rhythm Respiratory/Chest: other - bilat rhonchi Abdomen: non tender - + gutbe, mildly distended, soft, other - + g tube, mildly distended Extremities: no swelling Intake and Output 03/07/19 03/08/19 19:00 07:00 Intake Total 1567.5 ml 152.3333 ml Output Total 450 ml 700 ml Balance 1117.5 ml -547.6667 ml Free Water 180 ml IV Total 987.5 ml 152.3333 ml Tube Feeding 400 ml Output Urine Total 450 ml 700 ml Laboratory Tests Test 03/07/19 22:30 03/08/19 06:30 Urine Color Yellow Urine Appearance Slightly cloudy Urine pH 5 (4.5-8.0) Urine Specific [place] 1.020 (1.005-1.035) Urine Protein 2+ (NEGATIVE) H Urine Glucose (UA) Negative (NEGATIVE) Urine Ketones 2+ (NEGATIVE) H Urine Blood 5+ (NEGATIVE) H Urine Nitrite Negative (NEGATIVE) Urine Bilirubin Negative (NEGATIVE) Urine Urobilinogen Normal MG/DL (0.0-1.0) Urine Leukocyte Esterase 2+ (NEGATIVE) H Urine RBC 20-30 /HPF (0 - 0) H Urine WBC 15-20 /HPF (0 - 0) H Urine Squamous Epithelial Cells Few /LPF (NONE/OCC) Urine Amorphous Sediment Many /LPF (NONE) H Urine Bacteria Many /HPF (NONE) H Urine Coarse Granular Casts 10-15 /LPF (NONE) H Urine Yeast Many /HPF (NONE) H White Blood Count 28.2 K/UL (4.8-10.8) #*H Red Blood Count 2.70 M/UL (4.70-6.10) L Hemoglobin 7.2 G/DL (14.2-18.0) L Hematocrit 22.8 % (42.0-52.0) L Mean Corpuscular Volume 85 FL (80-99) Mean Corpuscular Hemoglobin 26.8 PG (27.0-31.0) L Mean Corpuscular Hemoglobin Concent 31.7 G/DL (32.0-36.0) L Red Cell Distribution Width 18.0 % (11.6-14.8) H Platelet Count 170 K/UL (150-450) Mean Platelet Volume 10.5 FL (6.5-10.1) H Neutrophils (%) (Auto) % (45.0-75.0) Lymphocytes (%) (Auto) % (20.0-45.0) Monocytes (%) (Auto) % (1.0-10.0) Eosinophils (%) (Auto) % (0.0-3.0) Basophils (%) (Auto) % (0.0-2.0) Differential Total Cells Counted 100 Neutrophils % (Manual) 61 % (45-75) Lymphocytes % (Manual) 14 % (20-45) L Monocytes % (Manual) 13 % (1-10) H Eosinophils % (Manual) 0 % (0-3) Basophils % (Manual) 0 % (0-2) Band Neutrophils 12 % (0-8) H Platelet Estimate Adequate Platelet Morphology Normal Polychromasia 2+ Hypochromasia 1+ Anisocytosis 1+ Sodium Level 145 MMOL/L (136-145) Potassium Level 5.1 MMOL/L (3.5-5.1) Chloride Level 114 MMOL/L (98-107) H Carbon Dioxide Level 26 MMOL/L (21-32) Anion Gap 5 mmol/L (5-15) Blood Urea Nitrogen 43 mg/dL (7-18) H Creatinine 0.6 MG/DL (0.55-1.30) Estimat Glomerular Filtration Rate mL/min (>60) Glucose Level 112 MG/DL (74-106) H Calcium Level 7.0 MG/DL (8.5-10.1) L Total Bilirubin 0.5 MG/DL (0.2-1.0) Aspartate Amino Transf (AST/SGOT) 24 U/L (15-37) Alanine Aminotransferase (ALT/SGPT) 24 U/L (12-78) Alkaline Phosphatase 252 U/L (46-116) H Total Protein 4.8 G/DL (6.4-8.2) L Albumin 0.7 G/DL (3.4-5.0) L Globulin 4.1 g/dL Albumin/Globulin Ratio 0.2 (1.0-2.7) L Microbiology Date/Time Source Procedure Growth Status 03/06/19 03:55 Blood Blood Culture - Final Pseudomonas Aeruginosa Complete 03/06/19 03:50 Blood Blood Culture - Preliminary NO GROWTH AFTER 48 HOURS Resulted Chinyere Arriaza MD Mar 08, 2019 19:13
--- NOTE | 2019-03-08 19:20 | NUR ---
NURSE NOTES: Patient received from NADINE Morales Lying in bed, unresponsive and obtunded. On trach to vent, settings of AC-12, TV-500, FiO2-28%, PEEP-5, saturating a t 100%. Left EJ, asymptomatic, running IVF 1/2 NS at 125 ml/hr. G-tube with tube feeding of Glucerna 1.5 at 50 ml/hr. Mcpherson catheter in place, draining to yellow urine with sediments. Bilateral upper and lower extremities elevated. Sinus Rhythm noted on the monitor. No distress noted. Will continue POC.
--- NOTE | 2019-03-08 19:25 | NUR ---
HAND-OFF: Report given to .POONAM LITTLE RN.
--- NOTE | 2019-03-08 19:28 | NUR ---
RESPIRATORY NOTE: Received pt on AC 12, 500VT, 28%, PEEP +5. Pt is trach-dependent w/ a cuffed, Shiley 8 tube. Pt obtunded. B/S zunilda. rhonchi, sxn small amounts of thick, granados-yellow secretions. Vent plugged into red outlet, ambubag at bedside. Pt in no apparent distress at this time. Will continue plan of care.
[2019-03-08 20:00] VITALS: BP 111/58
--- NOTE | 2019-03-08 23:00 | NUR ---
NURSE NOTES: Received pt. from Janell Vargas RN, pt. in bed obtunded- no signs or symptoms of acute cardiac or respiratory distress noted, b ed alarm on, side rails up x's 3 and safety brakes engaged, pt. appears to be resting comfortably, pt. appears to be tolerating current vent settings well- AC 12, TV 500, Fio2 28% and peep 5- no distress noted, Glucerna 1.2 at 50cc/hr- no residual noted, Mcpherson intact and draining to gravity, pt. appears to be clean and dry, Lt. IJ 1/2 NS running at 125mls/hr- Intact and patent, safety measure continued, with plan of care. Addendum: 03/08/19 at 0297 by EMMANUEL HATHAWAY RN RN bed in low position and engaged in position, call light w within easy reach, and side rails up x's3,
--- NOTE | 2019-03-08 23:58 | NUR ---
HAND-OFF: Report given to Sam Henao, RN- pt. remains stable and no distress noted.
[2019-03-09] MEDS: Ipratropium 0.02% Inh Soln 2.5ml UD HHN SCH ×4 (01:33→19:30)
[2019-03-09 04:18] LABS: HEMATOCRIT 21.6 % (42.0-52.0); MEAN CORPUSCULAR VOLUME 85 FL (80-99); PLATELET COUNT 177 K/UL (150-450); RED BLOOD COUNT 2.56 M/UL (4.70-6.10); RED CELL DISTRIBUTION WIDTH 18.1 % (11.6-14.8)
[2019-03-09 04:22] LABS: HEMOGLOBIN 6.8 G/DL (14.2-18.0); WHITE BLOOD COUNT 32.5 K/UL (4.8-10.8)
[2019-03-09 04:34] LABS: ANION GAP 7 mmol/L (5-15); BLOOD UREA NITROGEN 42 mg/dL (7-18); CARBON DIOXIDE 26 MMOL/L (21-32); CHLORIDE 111 MMOL/L (98-107); CREATININE 0.7 MG/DL (0.55-1.30); POTASSIUM 5.1 MMOL/L (3.5-5.1); SODIUM 143 MMOL/L (136-145)
[2019-03-09] MEDS ORDERED: Vancomycin 750 MG in NS 275 ML IVPB SCH (05:00)
[2019-03-09] MEDS: NovoLOG Insulin Flexpen SUBQ SCH ×3 (06:00→18:00)
[2019-03-09] MEDS: dilTIAZem HCl 60mg tab GT SCH ×3 (06:00→18:00)
[2019-03-09] MEDS: metroNIDAZOLE 500mg tab ORAL SCH ×3 (06:56→22:29)
[2019-03-09] MEDS: Phospha 250 Neutral tab GT SCH ×3 (06:56→22:28)
--- NOTE | 2019-03-09 07:10 | NUR ---
RESPIRATORY NOTE: received pt on current vent settings with no signs of resp distress. pt is vent dependent and trached with shiley [address] trach is secured via trach tie. no visible redness or skin irritation around stoma/neck area. vent alarms are on and audible. will cont to monitor.
--- NOTE | 2019-03-09 07:15 | NUR ---
HAND-OFF: Report given to Brock Mroales RN.
--- NOTE | 2019-03-09 07:15 | NUR ---
NURSE NOTES: REC,D BED SIDE REPORT FROM POONAM INFORMATION SYSTEMS ANALYST OF NOC SHIFT. PRANEETH,D PT WITH HOB ELEVATED 45 DEGREE TRACH TO VENT DEPENDENT.PT OBTUNDED, DNR STATUS .PT WITH TRACH SHILEY # 8 PATENT AND INTACT WELL SECURED .PT TOLERATING WELL CURRENTS VENT SETTINGS, RENDERED TRACH CARE AND ORAL HYGIENE ,MOD AMT OF YELLOWISH SECRETIONS NOTED. PT WITH F/C DRAINING KARI URINE COLOR.GTF ON HOLD AT THIS TIME ,WILL RESUME GTF AT 1100AM PER M.D ORDERS.IV ON LT IJ PATENT AND WELL SECURE CONNECTED TO IVF.S 1/2 NS @ 75CC/HRS.PT REPOSITIONED IN BED TO PROVIDE COMFORT AND TO PREVENT FURTHER SKIN BREAK DOWN.FULL BODY ASSESSMENT DONE. WILL CONT TO MONITOR.
[2019-03-09] MEDS ORDERED: NS 275ml ONE (07:56)
[2019-03-09] MEDS ORDERED: 1/2 NS 1000ml IV ONE (07:56)
[2019-03-09] MEDS ORDERED: Tubing IV Secondary IV ONE (07:56)
[2019-03-09 08:00] VITALS: BP 117/56
--- NOTE | 2019-03-09 09:06 | Diagnostic Imaging Report ---
Indication: Abdominal pain Technique: Spiral acquisitions obtained through the abdomen and pelvis. Patient given oral contrast. No IV contrast utilized, per referring physician request.. Multiplanar reconstructions were generated. Total dose length product 2690 mGycm. CTDIvol(s) 55 mGy. Dose reduction achieved using automated exposure control Comparison: None Findings: Exam is very limited by lack of IV contrast, anasarca, and image noise. Again demonstrated is a left inguinal hernia. This does not appear to be obstructive, as ingested contrast is seen throughout the entirety of the small and large bowel. The position of the inferior epigastric vessels is not clearly demonstrated, so uncertain as whether this is a direct or indirect hernia. Hernia contains a single sizable loop of small bowel as well as fluid. The appendix is not definitely identified, but no findings to suggest acute appendicitis are evident. Numerous surgical clips are seen adjacent to the ascending colon. There is no evidence of colonic diverticulosis or diverticulitis. No small bowel distention or small bowel wall thickening. No free or loculated intraperitoneal gas or fluid is evident. Again demonstrated is a gastrostomy in good position. In retrospect, previous exam demonstrates gastric wall pneumatosis; this is not evident currently. There is a small to moderate amount of free intraperitoneal fluid. The previously demonstrated rectal tube is no longer present. Previously demonstrated right lobe liver lesion is not evident on this study due to the lack of IV contrast. Previously demonstrated hepatic hypoattenuation is no longer evident. The gallbladder demonstrates a small stone in the region of the neck, also reported previously. The gallbladder is slightly more distended than on the prior study but no gross wall thickening is evident. No biliary ductal dilatation. The pancreas, spleen, adrenals are unremarkable. Previously demonstrated bilateral renal cysts are visible but less clearly evident than on the previous contrast infused exam. No definite retroperitoneal or mesenteric mass or adenopathy. No pelvic mass or adenopathy. The bladder is empty, contains a Mcpherson catheter. Extensive decubitus ulceration is seen in the retrococcygeal region. This is markedly increased since the prior exam. There are destructive changes of the proximal coccyx which are equivocally progressed somewhat since the previous exam. There are large bilateral pleural effusions., Increased considerably in extent from the previous exam. There is compressive atelectasis of much of both lower lobes. There is anasarca, with generalized severe edema of the subcutaneous fat, less severe edema of the retroperitoneal and mesenteric fat. There is fluid within the inguinal canal associated with a hernia. Old left rib fracture deformities are again noted. There are degenerative changes of the lumbar spine Impression: Extensive and progressive decubitus ulceration in the retrococcygeal region, with equivocally progressive destructive changes of the proximal coccyx Evidence of anasarca, with large bilateral pleural effusions, small to moderate ascites, diffuse soft tissue edema, marked scrotal wall edema and likely bilateral hydroceles Left inguinal hernia containing a sizable loop of small bowel. Associated herniation of ascites into the hernia sac. No evidence of obstruction or strangulation Interim resolution of previously demonstrated, in retrospect, gastric wall pneumatosis. Gastrostomy in good position. Cholelithiasis, also previously reported Compressive atelectasis of much of both pulmonary lower lobes due to the pleural fluid Other findings as noted, include old left rib fracture deformities, degenerative lumbar spondylosis, Mcpherson catheter within an empty bladder The CT scanner at [facility] is accredited by the [employer] [place] and the scans are performed using protocols designed to limit radiation exposure to as low as reasonably achievable to attain images of sufficient resolution adequate for diagnostic evaluation.
[2019-03-09] MEDS: Ascorbic Acid 500mg tab ORAL SCH ×2 (09:44→22:29)
[2019-03-09] MEDS: Amikacin 1,000 MG in NS 110 ML IV SCH (09:44)
[2019-03-09] MEDS: Aspirin Baby 81mg NG SCH (09:44)
[2019-03-09] MEDS: Zinc Sulfate 220mg cap ORAL SCH (09:44)
[2019-03-09] MEDS: Heparin 5000 units/ml inj SUBQ SCH (09:46)
--- NOTE | 2019-03-09 11:18 | Diagnostic Imaging Report ---
Indication: Dyspnea Technique: One view of the chest Comparison: 03/06/2019 Findings: There is bilateral interstitial and airspace edema again noted. There are bilateral pleural effusions again noted. There is a tracheostomy in good position. The heart size is normal. There is no significant interim change Impression: Unchanged, over 3 days, findings as above.
[2019-03-09 12:00] VITALS: BP 101/54
--- NOTE | 2019-03-09 12:22 | Surgery Progress Note ---
Surgery Progress Note Subjective Additional Comments no acute events comfortable appearing on support worsening labs comfort measures Objective Last 24 Hour Vital Signs Date Time Temp Pulse Resp B/P (MAP) Pulse Ox O2 Delivery O2 Flow Rate FiO2 03/09/19 10:35 86 16 28 03/09/19 08:38 82 16 28 03/09/19 08:00 Mechanical Ventilator 03/09/19 08:00 28 03/09/19 08:00 93.8 84 20 117/56 (76) 100 03/09/19 07:06 106 18 100 Mechanical Ventilator 28 106 17 28 03/09/19 06:00 85 108/54 03/09/19 05:31 98 17 28 03/09/19 03:03 73 15 28 03/09/19 01:43 77 12 100 Mechanical Ventilator 28 03/09/19 01:33 80 16 Mechanical Ventilator 28 28 03/09/19 00:00 Mechanical Ventilator 03/08/19 23:43 69 103/52 03/08/19 23:00 74 14 28 03/08/19 21:40 71 14 28 03/08/19 20:00 28 03/08/19 20:00 97.0 76 17 111/58 (75) 100 03/08/19 20:00 78 03/08/19 20:00 Mechanical Ventilator 03/08/19 19:33 74 12 100 Mechanical Ventilator 28 03/08/19 19:23 81 18 Mechanical Ventilator 28 28 03/08/19 19:02 84 103/55 03/08/19 17:20 77 14 28 03/08/19 16:00 28 03/08/19 16:00 84 03/08/19 16:00 Mechanical Ventilator 03/08/19 16:00 97.3 86 18 124/59 (80) 94 03/08/19 15:21 82 15 28 03/08/19 14:15 78 116/64 03/08/19 13:21 78 20 100 Mechanical Ventilator 28 82 20 28 I&O Intake and Output 03/08/19 03/09/19 19:00 07:00 Intake Total 775 ml 450 ml Output Total 450 ml Balance 325 ml 450 ml Free Water 600 ml IV Total 125 ml 400 ml Tube Feeding 50 ml 50 ml Output Urine Total 450 ml Dressing: saturated Wound: other Drains: other Cardiovascular: RSR Respiratory: decreased breath sounds Abdomen: soft, present bowel sounds Extremities: no cyanosis, other Laboratory Tests Test 1/30/20 03:50 White Blood Count 32.5 K/UL (4.8-10.8) *H Red Blood Count 2.56 M/UL (4.70-6.10) L Hemoglobin 6.8 G/DL (14.2-18.0) *L Hematocrit 21.6 % (42.0-52.0) L Mean Corpuscular Volume 85 FL (80-99) Mean Corpuscular Hemoglobin 26.4 PG (27.0-31.0) L Mean Corpuscular Hemoglobin Concent 31.2 G/DL (32.0-36.0) L Red Cell Distribution Width 18.1 % (11.6-14.8) H Platelet Count 177 K/UL (150-450) Mean Platelet Volume 9.5 FL (6.5-10.1) Neutrophils (%) (Auto) % (45.0-75.0) Lymphocytes (%) (Auto) % (20.0-45.0) Monocytes (%) (Auto) % (1.0-10.0) Eosinophils (%) (Auto) % (0.0-3.0) Basophils (%) (Auto) % (0.0-2.0) Differential Total Cells Counted 100 Neutrophils % (Manual) 77 % (45-75) H Lymphocytes % (Manual) 9 % (20-45) L Monocytes % (Manual) 14 % (1-10) H Eosinophils % (Manual) 0 % (0-3) Basophils % (Manual) 0 % (0-2) Band Neutrophils 0 % (0-8) Platelet Estimate Adequate Platelet Morphology Normal Hypochromasia 4+ Anisocytosis 2+ Sodium Level 143 MMOL/L (136-145) Potassium Level 5.1 MMOL/L (3.5-5.1) Chloride Level 111 MMOL/L (98-107) H Carbon Dioxide Level 26 MMOL/L (21-32) Anion Gap 7 mmol/L (5-15) Blood Urea Nitrogen 42 mg/dL (7-18) H Creatinine 0.7 MG/DL (0.55-1.30) Estimat Glomerular Filtration Rate mL/min (>60) Glucose Level 182 MG/DL (74-106) H Calcium Level 7.0 MG/DL (8.5-10.1) L Amikacin Level Trough 19.3 ug/mL (4.0-8.0) H Vancomycin Level Trough 22.6 ug/mL (5.0-12.0) H Plan Problems: (1) Malnutrition Assessment & Plan: DAILY ESTIMATED NEEDS: Needs based on Advanced wounds, Underweight, CRITICAL CARE/ 49.5kg 25-35 kcals/kg 7960-9252 total kcals 1.5-2.0 g protein/kg 74-99 g total protein 25-30 mL/kg 5536-7292 total fluid mLs NUTRITION DIAGNOSIS: (1) Increased kcal/prot needs R/T wound healing, sepsis as evidenced by pt w/ advanced wounds, 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 (2) Swallowing difficulty R/T respiratory status as evidenced trach/vent dep and PEG dep (3) Altered GI function R/T pneumatosis, GIB as evidenced by admitted w/ c/o coffee ground emesis, TF initiated at low rate, now @ goal. CURRENT TF:Glucerna 1.5 @50ml/hr x20 hrs ENTERAL NUTRITION RECOMMENDATIONS: Glucerna 1.5 @ 50ml/hr x 20 hrs to provide 1000ml, 1500 kcal, 82.3g pro, 759ml free H2O -> Maintain current TF to meet 100% est needs -> HOB over 30 degrees/ water flush per MD ADDITIONAL RECOMMENDATIONS: * Per SNF: HT=67", LY=171ubm (as of 12/21) Per Dec SNF record -> ok=[id number], pt edematous, wt trending up Rec to RECALIBRATE bed scale for accurate CBW . 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 Altered mental status Continued malnutrition failure to thrive in adult Decubitus skin ulcers Patient evaluated full physical examination completed wounds unlikely etiology of patient's sepsis Micro noted Chest x-ray reviewed Trach in place on support Care plan initiated Discussed with PCP and consultants recommend SNF with hospice Patients condition continue to deteriorate Thank you for let me participation's care will continue to follow with recommendations Sher Keene Mar 09, 2019 12:22
[2019-03-09 12:44] VITALS: BP 101/54
--- NOTE | 2019-03-09 13:31 | NUR ---
[facility] SI: RESP FAILURE TRACH/VENT DEPENDENT,SEPSIS T. 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
--- NOTE | 2019-03-09 13:32 | NUR ---
RADIOLOGY DEPT., CHEST X-RAY DONE.-P.DYE
[2019-03-09 16:00] VITALS: BP 104/50
[2019-03-09] MEDS ORDERED: Amikacin Rx to dose MISC PRN (16:30)
--- NOTE | 2019-03-09 16:30 | Infectious Diseases Prog Note ---
Assessment/Plan Assessment/Plan ASSESSMENT/PLAN; 1. sepsis, pseudomonas bacteremia, gram neg sepsis, pseudomonas uti/pna, sirs, leukocytosis, multiple wounds, ? osteo on CT fungal uti, ? fungemia - vancomycin, cefepime, amikacin, flagyl - day # 9 abx - add diflucan for fungemia and fungal uti coverage - monitor labs and chest x-ray, CT noted and no abscess - wound care per surgery and protocol, debridement if indicated, surgery f/u - persistent bacteremia - f/u on surveillance cultures - poor prognosis 2. trach, vent and respiratory failure. 3. Dysphagia, G-tube. 4. Wound care protocol. 5. History of decubitus. 6. hypercapnia 7. Blood pressure treatment per primary care team. 8. Depression. 9. Diastolic heart failure. 10. Coronary artery disease. 11. GERD. 12. Glaucoma. 13. GI bleed. 14. Osteoarthritis. 15. BPH. 16. Malnutrition. 17. Allergies to dorzolamide, lisinopril, timolol, tiotropium, Spiriva. 18. Family history is noncontributory. 19. Social history is negative. 20. MAR was noted. 21. Case was discussed with RN. 22. ICU care. 23. Continue treatment per primary consultants. 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 Subjective Constitutional: Reports: other - hypothermic ; Denies: fever HEENT: Reports: congestion Respiratory: Reports: shortness of breath, other - + trach and vent Cardiovascular: Reports: other - no pressors Gastrointestinal/Abdominal: Denies: nausea, vomiting, diarrhea Genitourinary: Reports: other - + kline Neurologic: Reports: weakness, other - lethargic Psychiatric: Reports: other - NA Skin: Reports: ulcer - wounds covered Hematologic: Denies: bleeding Musculoskeletal: Reports: other - NA Allergies: Coded Allergies: DORZOLAMIDE (Unverified Allergy, Unknown, 12/23/18) LISINOPRIL (Unverified Allergy, Unknown, 12/23/18) TIMOLOL (Unverified Allergy, Unknown, 12/23/18) TIOTROPIUM (Unverified Allergy, Unknown, 12/23/18) Objective Vital Signs Last 24 Hour Vital Signs Date Time Temp Pulse Resp B/P (MAP) Pulse Ox O2 Delivery O2 Flow Rate FiO2 03/09/19 14:50 100 16 28 03/09/19 13:50 95 121/62 03/09/19 12:44 93 15 100 Mechanical Ventilator 28 92 12 28 03/09/19 12:44 93.6 116 16 101/54 (70) 99 03/09/19 12:00 Mechanical Ventilator 03/09/19 12:00 28 03/09/19 10:35 86 16 28 03/09/19 08:38 82 16 28 03/09/19 08:00 102 03/09/19 08:00 Mechanical Ventilator 03/09/19 08:00 28 03/09/19 08:00 93.8 84 20 117/56 (76) 100 03/09/19 07:06 106 18 100 Mechanical Ventilator 28 106 17 28 03/09/19 06:00 85 108/54 03/09/19 05:31 98 17 28 03/09/19 03:03 73 15 28 03/09/19 01:43 77 12 100 Mechanical Ventilator 28 03/09/19 01:33 80 16 Mechanical Ventilator 28 28 03/09/19 00:00 Mechanical Ventilator 03/08/19 23:43 69 103/52 03/08/19 23:00 74 14 28 03/08/19 21:40 71 14 28 03/08/19 20:00 28 03/08/19 20:00 97.0 76 17 111/58 (75) 100 03/08/19 20:00 78 03/08/19 20:00 Mechanical Ventilator 03/08/19 19:33 74 12 100 Mechanical Ventilator 28 03/08/19 19:23 81 18 Mechanical Ventilator 28 28 03/08/19 19:02 84 103/55 03/08/19 17:20 77 14 28 Height (Feet): 5 Height (Inches): 7.00 Weight (Pounds): 153 General Appearance: other - + trach and vent HEENT: normocephalic, atraumatic, no JVD, status post trach Respiratory/Chest: crackles/rales, rhonchi - bilaterally Cardiovascular: normal rate, regular rhythm, no gallop/murmur Abdomen: normal bowel sounds, soft, non tender, no organomegaly, non distended Genitourinary: other - + kline - urine slt cloudy Extremities: no cyanosis, other Skin: no rash Neurologic/Psychiatric: 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 Findings: 15:20 Lungs are hyperexpanded. 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 This is probably chronic and due to pleural thickening as the configuration has not changed over several days. Heart size appears stable. Tracheostomy is again noted. Pulmonary vascularity appears mildly prominent as it did previously. IMPRESSION: No significant change from the earlier film 03/03/19 - chest x-ray - Procedure: XRAY Chest 1v Indication: Shortness of breath Technique: One view of the chest Comparison: 03/01/2019 Findings: There is increasing hazy parenchymal consolidation at both lung bases. There are again demonstrated bilateral pleural effusions, appearing stable on the left and likely slightly increased on the right. Tracheostomy remains. The heart size is normal Impression: Increasing bilateral basilar hazy infiltrates and increasing right pleural fluid, over one day. Other stable findings as noted Chest x-ray - 03/06/19 - IMPRESSION: COPD. CHF with bilateral pleural effusions suspected. No significant change from the last exam 03/09/19 - chest x-ray - Procedure: XRAY Chest 1v Indication: Dyspnea Technique: One view of the chest Comparison: 03/06/2019 Findings: There is bilateral interstitial and airspace edema again noted. There are bilateral pleural effusions again noted. There is a tracheostomy in good position. The heart size is normal. There is no significant interim change Impression: Unchanged, over 3 days, findings as above. CT abdomen and pelvis: Impression: Extensive and progressive decubitus ulceration in the retrococcygeal region, with equivocally progressive destructive changes of the proximal coccyx Evidence of anasarca, with large bilateral pleural effusions, small to moderate ascites, diffuse soft tissue edema, marked scrotal wall edema and likely bilateral hydroceles Left inguinal hernia containing a sizable loop of small bowel. Associated herniation of ascites into the hernia sac. No evidence of obstruction or strangulation Interim resolution of previously demonstrated, in retrospect, gastric wall pneumatosis. Gastrostomy in good position. Cholelithiasis, also previously reported Compressive atelectasis of much of both pulmonary lower lobes due to the pleural fluid Microbiology Date/Time Source Procedure Growth Status 03/06/19 03:55 Blood Blood Culture - Final Pseudomonas Aeruginosa Complete 03/01/19 07:33 Sputum Gram Stain - Final Complete 03/01/19 07:33 Sputum Culture - Final Pseudomonas Aeruginosa Complete 03/07/19 22:30 External Cath Urine Culture - Preliminary Yeast Species Resulted 03/01/19 04:17 Rectum - Final NO CARBAPENEM-RESISTANT ENTEROBACTERI... Complete Microbiology Date/Time Source Procedure Growth Status 03/07/19 22:30 External Cath Urine Culture - Preliminary Yeast Species Resulted Laboratory Tests Test 03/09/19 03:50 White Blood Count 32.5 K/UL (4.8-10.8) *H Red Blood Count 2.56 M/UL (4.70-6.10) L Hemoglobin 6.8 G/DL (14.2-18.0) *L Hematocrit 21.6 % (42.0-52.0) L Mean Corpuscular Volume 85 FL (80-99) Mean Corpuscular Hemoglobin 26.4 PG (27.0-31.0) L Mean Corpuscular Hemoglobin Concent 31.2 G/DL (32.0-36.0) L Red Cell Distribution Width 18.1 % (11.6-14.8) H Platelet Count 177 K/UL (150-450) Mean Platelet Volume 9.5 FL (6.5-10.1) Neutrophils (%) (Auto) % (45.0-75.0) Lymphocytes (%) (Auto) % (20.0-45.0) Monocytes (%) (Auto) % (1.0-10.0) Eosinophils (%) (Auto) % (0.0-3.0) Basophils (%) (Auto) % (0.0-2.0) Differential Total Cells Counted 100 Neutrophils % (Manual) 77 % (45-75) H Lymphocytes % (Manual) 9 % (20-45) L Monocytes % (Manual) 14 % (1-10) H Eosinophils % (Manual) 0 % (0-3) Basophils % (Manual) 0 % (0-2) Band Neutrophils 0 % (0-8) Platelet Estimate Adequate Platelet Morphology Normal Hypochromasia 4+ Anisocytosis 2+ Sodium Level 143 MMOL/L (136-145) Potassium Level 5.1 MMOL/L (3.5-5.1) Chloride Level 111 MMOL/L (98-107) H Carbon Dioxide Level 26 MMOL/L (21-32) Anion Gap 7 mmol/L (5-15) Blood Urea Nitrogen 42 mg/dL (7-18) H Creatinine 0.7 MG/DL (0.55-1.30) Estimat Glomerular Filtration Rate mL/min (>60) Glucose Level 182 MG/DL (74-106) H Calcium Level 7.0 MG/DL (8.5-10.1) L Amikacin Level Trough 19.3 ug/mL (4.0-8.0) H Vancomycin Level Trough 22.6 ug/mL (5.0-12.0) H Current Medications Medications (Trade) Dose Ordered Sig/Katie Route PRN Reason Start Time Stop Time Status Last Admin Dose Admin Acetaminophen (Tylenol) 650 mg Q4H PRN GT Mild Pain/Temp > 100.5 03/04/19 06:30 04/03/19 06:29 03/06/19 23:01 Amikacin Protocol (Amikacin pharmacy to dose) 1 ea DAILY PRN MISC Per rx protocol 03/01/19 18:30 03/31/19 18:29 Amikacin Sulfate 1000 mg/Sodium Chloride 114 ml @ 114 mls/hr Q36H IV 03/01/19 20:00 03/10/19 19:59 03/09/19 09:44 Ascorbic Acid (Vitamin C) 250 mg EVERY 12 HOURS ORAL 03/06/19 21:00 04/02/19 17:59 03/09/19 09:44 Aspirin (ASA) 81 mg DAILY NG 03/06/19 09:00 04/05/19 08:59 03/09/19 09:44 Cefepime HCl 1 gm/ Dextrose 50 ml @ 100 mls/hr Q12H IVPB 03/07/19 23:00 03/14/19 22:59 03/09/19 13:41 Dextrose (Dextrose 50%) 25 ml Q30M PRN IV Hypoglycemia 03/01/19 12:30 03/31/19 12:29 03/04/19 18:50 Dextrose (Dextrose 50%) 50 ml Q30M PRN IV Hypoglycemia 03/01/19 12:30 03/31/19 12:29 03/08/19 17:07 Diltiazem HCl (Cardizem) 60 mg EVERY 6 HOURS GT 03/05/19 12:00 04/04/19 11:59 03/09/19 13:50 Heparin Sodium (Porcine) (Heparin 5000 units/ml) 5,000 units EVERY 12 HOURS SUBQ 03/01/19 21:00 03/31/19 20:59 03/09/19 09:46 Insulin Aspart (NovoLOG) EVERY 6 HOURS SUBQ 03/04/19 18:00 03/31/19 16:29 03/09/19 06:00 Ipratropium [place] (Atrovent) 500 mcg Q4H PRN HHN Shortness of Breath 03/06/19 14:30 03/11/19 14:29 Ipratropium [place] (Atrovent) 500 mcg Q6HRT HHN 03/06/19 19:00 03/11/19 18:59 03/09/19 12:44 Metronidazole (Flagyl) 500 mg EVERY 8 HOURS ORAL 03/03/19 22:00 03/10/19 21:59 03/09/19 13:51 Phosphorus (Phospha 250 Neutral) 250 mg EVERY 8 HOURS GT 03/06/19 14:00 04/01/19 08:59 03/09/19 13:51 Sodium Chloride 1,000 ml @ 125 mls/hr Q8H IV 03/06/19 18:15 04/05/19 18:14 03/09/19 13:42 Vancomycin HCl (Vanco rx to dose) 1 ea DAILY PRN MISC Per rx protocol 03/01/19 12:15 03/31/19 12:14 Vancomycin HCl 750 mg/Sodium Chloride 275 ml @ 183.333 mls/hr Q24H IVPB 03/09/19 17:00 03/14/19 16:59 Zinc Sulfate (Zinc Sulfate) 220 mg DAILY ORAL 03/04/19 09:00 03/14/19 08:59 03/09/19 09:44 Randal Pool MD Mar 09, 2019 16:30
[2019-03-09] MEDS: Vancomycin 750 MG in NS 275 ML IVPB SCH (18:35)
--- NOTE | 2019-03-09 19:20 | NUR ---
HAND-OFF: Report given to .MARLENY MCCOY.
--- NOTE | 2019-03-09 19:20 | NUR ---
NURSE NOTES: Received pt. from Brock MCCOY. Pt. is observed resting in bed. Pt is obtunded, no signs or symptoms of pain or discomfort noted. Pt is trach to vent with current settings as follows: AC 12 TV 500 FiO2 28% PEEP 5. No s/sx of respiratory distress noted, pt is tolerating current settings well. Pt is on tele monitor and is currently ST with a HR of 102 noted. No signs/sx of cardiac distress noted. GTube noted with remain patent and intact, Glucerna 1.2 infusing at 50mL/hr as ordered, no residual noted. Mcpherson catheter noted with remains patent, intact and draining yellow urine to gravity. Skin alterations noted. Radha hugger currently applied with a temperature of 96.7F noted. Will reassess patient and need for warming measures. Lt. external jug IV catheter noted and currently infusing 1/2 NS at 125mls/hr as ordered. IV catheter remains intact, asymptomatic and patent. Dressing remains dry and intact. Aspiration and safety precautions observed. Pt remains resting in bed; bed remains in lowest position with safety wheels engaged, call light within reach, side rails up x3 and bed alarm activated. Will continue plan of care. Will continue to monitor.
--- NOTE | 2019-03-09 19:39 | Cardiology Progress Note ---
Assessment/Plan Problem List: (1) Paroxysmal atrial fibrillation (2) Atrial flutter (3) Ventilator dependent (4) Altered level of consciousness (5) Sepsis Assessment & Plan: + bld, sputum cx for Pseudomonas + urine yeast (6) Leukocytosis (7) Edema Status: not improved, deteriorating Status Narrative Pt w/ respiratory failure, vent-dependent, on chronic g tube feeds, encephalopathic, and now w/ pneumonia ( pseudomonas) and fungal UTI. WBC continues to increase, He is currently hypothermic, on warming blanket Maintining BP and SR- sinus tach , on telemetry. severe peripheral edema, related to hypoalbuminemia. He has worsening anemia, w/ Hg 6.8 today - no overt bleeding noted Assessment/Plan REc: continue iv antibiotics, vent support, management as per primary team. Transfuse PRBCs and continue to monitor h/h Continue diltiazem for rate control if AF/ AFL recur No anticoagulation, given severe anemia , ? bleed Overall prognosis poor. DNR status noted. Subjective ROS Limited/Unobtainable: Yes Subjective Cardiology for Dr Melendez Intubated, unresponsive Objective Last 24 Hour Vital Signs Date Time Temp Pulse Resp B/P (MAP) Pulse Ox O2 Delivery O2 Flow Rate FiO2 03/09/19 18:00 98 104/50 03/09/19 16:57 98 16 28 03/09/19 16:00 98.5 100 20 104/50 (68) 99 03/09/19 16:00 101 03/09/19 16:00 Mechanical Ventilator 03/09/19 16:00 28 03/09/19 14:50 100 16 28 03/09/19 13:50 95 121/62 03/09/19 12:44 93 15 100 Mechanical Ventilator 28 92 12 28 03/09/19 12:00 Mechanical Ventilator 03/09/19 12:00 93.6 116 16 101/54 (70) 99 03/09/19 12:00 28 03/09/19 12:00 101 03/09/19 10:35 86 16 28 03/09/19 08:38 82 16 28 03/09/19 08:00 102 03/09/19 08:00 Mechanical Ventilator 03/09/19 08:00 28 03/09/19 08:00 93.8 84 20 117/56 (76) 100 03/09/19 07:06 106 18 100 Mechanical Ventilator 28 106 17 28 03/09/19 06:00 85 108/54 03/09/19 05:31 98 17 28 03/09/19 03:03 73 15 28 03/09/19 01:43 77 12 100 Mechanical Ventilator 28 03/09/19 01:33 80 16 Mechanical Ventilator 28 28 03/09/19 00:00 Mechanical Ventilator 03/08/19 23:43 69 103/52 03/08/19 23:00 74 14 28 03/08/19 21:40 71 14 28 03/08/19 20:00 28 03/08/19 20:00 97.0 76 17 111/58 (75) 100 03/08/19 20:00 78 03/08/19 20:00 Mechanical Ventilator 03/08/19 19:33 74 12 100 Mechanical Ventilator 28 General Appearance: lethargic, on vent EENT: other - dry oral mucosa Neck: other - trach Rhythm: NSR Cardiovascular: normal rate, regular rhythm, no gallop/murmur Respiratory/Chest: other - tachypneic, shallow respirations. no rales, rhonchi Abdomen: non tender, soft, other - + g tube Extremities: moderate edema - moderate to severe pitting edema of distal UE, LE bilat Intake and Output 03/08/19 03/09/19 19:00 07:00 Intake Total 775 ml 450 ml Output Total 450 ml Balance 325 ml 450 ml Free Water 600 ml IV Total 125 ml 400 ml Tube Feeding 50 ml 50 ml Output Urine Total 450 ml Laboratory Tests Test 03/09/19 03:50 White Blood Count 32.5 K/UL (4.8-10.8) *H Red Blood Count 2.56 M/UL (4.70-6.10) L Hemoglobin 6.8 G/DL (14.2-18.0) *L Hematocrit 21.6 % (42.0-52.0) L Mean Corpuscular Volume 85 FL (80-99) Mean Corpuscular Hemoglobin 26.4 PG (27.0-31.0) L Mean Corpuscular Hemoglobin Concent 31.2 G/DL (32.0-36.0) L Red Cell Distribution Width 18.1 % (11.6-14.8) H Platelet Count 177 K/UL (150-450) Mean Platelet Volume 9.5 FL (6.5-10.1) Neutrophils (%) (Auto) % (45.0-75.0) Lymphocytes (%) (Auto) % (20.0-45.0) Monocytes (%) (Auto) % (1.0-10.0) Eosinophils (%) (Auto) % (0.0-3.0) Basophils (%) (Auto) % (0.0-2.0) Differential Total Cells Counted 100 Neutrophils % (Manual) 77 % (45-75) H Lymphocytes % (Manual) 9 % (20-45) L Monocytes % (Manual) 14 % (1-10) H Eosinophils % (Manual) 0 % (0-3) Basophils % (Manual) 0 % (0-2) Band Neutrophils 0 % (0-8) Platelet Estimate Adequate Platelet Morphology Normal Hypochromasia 4+ Anisocytosis 2+ Sodium Level 143 MMOL/L (136-145) Potassium Level 5.1 MMOL/L (3.5-5.1) Chloride Level 111 MMOL/L (98-107) H Carbon Dioxide Level 26 MMOL/L (21-32) Anion Gap 7 mmol/L (5-15) Blood Urea Nitrogen 42 mg/dL (7-18) H Creatinine 0.7 MG/DL (0.55-1.30) Estimat Glomerular Filtration Rate mL/min (>60) Glucose Level 182 MG/DL (74-106) H Calcium Level 7.0 MG/DL (8.5-10.1) L Amikacin Level Trough 19.3 ug/mL (4.0-8.0) H Vancomycin Level Trough 22.6 ug/mL (5.0-12.0) H Microbiology Date/Time Source Procedure Growth Status 03/07/19 22:30 External Cath Urine Culture - Preliminary Yeast Species Resulted Chinyere Arriaza MD Mar 09, 2019 19:39
[2019-03-09 20:00] VITALS: BP 110/57
--- NOTE | 2019-03-09 20:09 | Pulmonology Progress Note ---
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 SEPSIS: PsA UTI and sepsis - persistent bacteremia 2. Lactic acidosis - RESOLVED 3. Tracheostomy status. 4. Dysphagia, status post G-tube. 5. Encephalopathy. 6. Multiple decubitus ulcer. 7. Glaucoma. 8. Hypertension, CAD, CHF with diastolic dysfunction. 9. DNAR. TREATMENT PLAN: 1. Ventilatory support, settings reviewed. 2. Titrate O2. 3. Atrovent HHN's 4. Abx per ID 5. Monitor volumes and renal function, D/C IVF 6. Wound care 7. TF's 8. D/C Heparin subcutaneous given worsening anemia. 9. Transfuse PRBC 10. DNAR, continue to discuss goals of care, consider transition back to SNF with hospice - ongoing discussions with niece Subjective Allergies: Coded Allergies: DORZOLAMIDE (Unverified Allergy, Unknown, 12/23/18) LISINOPRIL (Unverified Allergy, Unknown, 12/23/18) TIMOLOL (Unverified Allergy, Unknown, 12/23/18) TIOTROPIUM (Unverified Allergy, Unknown, 12/23/18) Subjective WCt [address] noted AFVSS O2 needs stable on vent No sig secretions Objective Last 24 Hour Vital Signs Date Time Temp Pulse Resp B/P (MAP) Pulse Ox O2 Delivery O2 Flow Rate FiO2 03/09/19 19:30 110 17 100 Mechanical Ventilator 28 105 15 28 03/09/19 18:00 98 104/50 03/09/19 16:57 98 16 28 03/09/19 16:00 98.5 100 20 104/50 (68) 99 03/09/19 16:00 101 03/09/19 16:00 Mechanical Ventilator 03/09/19 16:00 28 03/09/19 14:50 100 16 28 03/09/19 13:50 95 121/62 03/09/19 12:44 93 15 100 Mechanical Ventilator 28 92 12 28 03/09/19 12:00 Mechanical Ventilator 03/09/19 12:00 93.6 116 16 101/54 (70) 99 03/09/19 12:00 28 1/30/20 12:00 101 03/09/19 10:35 86 16 28 03/09/19 08:38 82 16 28 03/09/19 08:00 102 03/09/19 08:00 Mechanical Ventilator 03/09/19 08:00 28 03/09/19 08:00 93.8 84 20 117/56 (76) 100 03/09/19 07:06 106 18 100 Mechanical Ventilator 28 106 17 28 03/09/19 06:00 85 108/54 03/09/19 05:31 98 17 28 03/09/19 03:03 73 15 28 03/09/19 01:43 77 12 100 Mechanical Ventilator 28 03/09/19 01:33 80 16 Mechanical Ventilator 28 28 03/09/19 00:00 Mechanical Ventilator 03/08/19 23:43 69 103/52 03/08/19 23:00 74 14 28 03/08/19 21:40 71 14 28 Intake and Output 03/08/19 03/09/19 19:00 07:00 Intake Total 775 ml 450 ml Output Total 450 ml Balance 325 ml 450 ml Free Water 600 ml IV Total 125 ml 400 ml Tube Feeding 50 ml 50 ml Output Urine Total 450 ml General Appearance: cachetic HEENT: status post trach Respiratory/Chest: crackles/rales, rhonchi Cardiovascular: normal peripheral pulses, normal rate, regular rhythm Abdomen: normal bowel sounds, soft, non tender, no organomegaly, non distended , no mass, other - GT Extremities: no cyanosis, no clubbing, no edema Microbiology Date/Time Source Procedure Growth Status 03/07/19 22:30 External Cath Urine Culture - Preliminary Yeast Species Resulted Laboratory Tests 03/09/19 03:50: White Blood Count 32.5*H, Red Blood Count 2.56L, Hemoglobin 6.8*L, Hematocrit 21.6L, Mean Corpuscular Volume 85, Mean Corpuscular Hemoglobin 26.4L, Mean Corpuscular Hemoglobin Concent 31.2L, Red Cell Distribution Width 18.1H, Platelet Count 177, Mean Platelet Volume 9.5, Neutrophils (%) (Auto) , Lymphocytes (%) (Auto) , Monocytes (%) (Auto) , Eosinophils (%) (Auto) , Basophils (%) (Auto) , Differential Total Cells Counted 100, Neutrophils % ( Manual) 77H, Lymphocytes % (Manual) 9L, Monocytes % (Manual) 14H, Eosinophils % (Manual) 0, Basophils % (Manual) 0, Band Neutrophils 0, Platelet Estimate Adequate, Platelet Morphology Normal, Hypochromasia 4+, Anisocytosis 2+, Sodium Level 143, Potassium Level 5.1, Chloride Level 111H, Carbon Dioxide Level 26, Anion Gap 7, Blood Urea Nitrogen 42H, Creatinine 0.7, Estimat Glomerular Filtration Rate , Glucose Level 182H, Calcium Level 7.0L, Amikacin Level Trough 19.3H, Vancomycin Level Trough 22.6H 03/09/19 19:45: Random Amikacin Level [Pending] Current Medications Medications (Trade) Dose Ordered Sig/Katie Route PRN Reason Start Time Stop Time Status Last Admin Dose Admin Acetaminophen (Tylenol) 650 mg Q4H PRN GT Mild Pain/Temp > 100.5 03/04/19 06:30 04/03/19 06:29 03/06/19 23:01 Amikacin Protocol (Amikacin pharmacy to dose) 1 ea DAILY PRN MISC Per rx protocol 03/09/19 16:30 04/08/19 16:29 Amikacin Sulfate 1000 mg/Sodium Chloride 114 ml @ 114 mls/hr Q36H IV 03/10/19 20:00 03/19/19 19:59 Ascorbic Acid (Vitamin C) 250 mg EVERY 12 HOURS ORAL 03/06/19 21:00 04/02/19 17:59 03/09/19 09:44 Aspirin (ASA) 81 mg DAILY NG 03/06/19 09:00 04/05/19 08:59 03/09/19 09:44 Cefepime HCl 1 gm/ Dextrose 50 ml @ 100 mls/hr Q12H IVPB 03/07/19 23:00 03/14/19 22:59 03/09/19 13:41 Dextrose (Dextrose 50%) 25 ml Q30M PRN IV Hypoglycemia 03/01/19 12:30 03/31/19 12:29 03/04/19 18:50 Dextrose (Dextrose 50%) 50 ml Q30M PRN IV Hypoglycemia 03/01/19 12:30 03/31/19 12:29 03/08/19 17:07 Diltiazem HCl (Cardizem) 60 mg EVERY 6 HOURS GT 03/05/19 12:00 2/25/20 11:59 03/09/19 13:50 Fluconazole/ Sodium Chloride 100 ml @ 100 mls/hr Q24H IV 03/09/19 20:00 03/16/19 19:59 03/09/19 19:37 Heparin Sodium (Porcine) (Heparin 5000 units/ml) 5,000 units EVERY 12 HOURS SUBQ 03/01/19 21:00 03/31/19 20:59 03/09/19 09:46 Insulin Aspart (NovoLOG) EVERY 6 HOURS SUBQ 03/04/19 18:00 03/31/19 16:29 03/09/19 06:00 Ipratropium [place] (Atrovent) 500 mcg Q4H PRN HHN Shortness of Breath 03/06/19 14:30 03/11/19 14:29 Ipratropium [place] (Atrovent) 500 mcg Q6HRT HHN 03/06/19 19:00 03/11/19 18:59 03/09/19 19:30 Metronidazole (Flagyl) 500 mg EVERY 8 HOURS ORAL 03/09/19 22:00 03/16/19 21:59 Phosphorus (Phospha 250 Neutral) 250 mg EVERY 8 HOURS GT 03/06/19 14:00 04/01/19 08:59 03/09/19 13:51 Sodium Chloride 1,000 ml @ 125 mls/hr Q8H IV 03/06/19 18:15 04/05/19 18:14 03/09/19 18:20 Vancomycin HCl (Vanco rx to dose) 1 ea DAILY PRN MISC Per rx protocol 03/09/19 16:30 04/08/19 16:29 Vancomycin HCl 750 mg/Sodium Chloride 275 ml @ 183.333 mls/hr Q24H IVPB 03/09/19 17:00 03/14/19 16:59 03/09/19 18:35 Zinc Sulfate (Zinc Sulfate) 220 mg DAILY ORAL 03/04/19 09:00 03/14/19 08:59 03/09/19 09:44 Josemanuel Lopes MD Mar 09, 2019 20:09
--- NOTE | 2019-03-09 21:53 | NUR ---
NURSE NOTES: VS acquired prior to blood product administration. VS as follows: BP 114/53, HR 107, temperature 98.9 1 unit of PRBCs started to infuse. Will remain with patient for initial administration period per SOC. Will continue to monitor.
--- NOTE | 2019-03-09 22:00 | NUR ---
NURSE NOTES: Vitamin C administered late because GTube was clogged. As soon as GTube was able to be freely flushed medication administered as ordered. Will continue to monitor.
--- NOTE | 2019-03-09 22:18 | NUR ---
NURSE NOTES: VS acquired 15 minutes after initiation of blood product administration. VS as follows: BP 107/52, HR 107, temperature 97.3 1 unit of PRBCs continues to infuse. No adverse events noted at this time. Will continue to monitor.
[2019-03-10] VITALS: BP 117/56
--- NOTE | 2019-03-10 00:32 | NUR ---
NURSE NOTES: VS acquired after blood product transfused . VS as follows: BP 110/55 HR 110, temperature 98.7 No adverse events noted. Will continue to monitor.
--- NOTE | 2019-03-10 00:40 | NUR ---
NURSE NOTES: Maxipime administered at 0040 due to limited IV access. Unable to obtain additional line due to +4 pitting edema. IV catheter in place currently infusing unit of PRBCs. Unable to increase rate of blood product transfusion due to patient tolerance.
[2019-03-10] MEDS: Ipratropium 0.02% Inh Soln 2.5ml UD HHN SCH ×4 (01:20→19:12)
--- NOTE | 2019-03-10 01:58 | NUR ---
NURSE NOTES: VS obtained prior to administration of second unit of PRBCs. Temperature of 100.1 noted. Temperature noted to be WNL after administration of previous unit. Administration of blood products held at this time. Will reassess at a later time. Will continue to monitor.
--- NOTE | 2019-03-10 02:04 | NUR ---
NURSE NOTES: Pt provided with a bed bath, oral care and linen change. Pt tolerated care. Aspiration and safety precautions observed. Pt remains resting in bed; bed remains in lowest position with safety wheels engaged, call light within reach, side rails up x3 and bed alarm activated. Will continue plan of care. Will continue to monitor.
--- NOTE | 2019-03-10 03:01 | NUR ---
NURSE NOTES: Pt noted to be vomiting. Secretions from trach site noted to be the same color and consistency as GT feeding. RT present at bedside. Deep suctioning performed and trach care performed. O2 saturations remain between 97-99%. Aspiration and safety precautions continue to be observed. Pt remains resting in bed; bed remains in lowest position with safety wheels engaged, call light within reach, side rails up x3 and bed alarm activated. Will continue to monitor.
[2019-03-10 04:00] VITALS: BP 108/52
--- NOTE | 2019-03-10 04:17 | NUR ---
NURSE NOTES: Unable to upload wound photo due to IT complication Called for support services, spoke with Yasir. Informed devulcanizer charger. Wound photo remain saved to camera SD card to be uploaded when system available.
[2019-03-10 04:51] LABS: HEMOGLOBIN 7.9 G/DL (14.2-18.0); MEAN CORPUSCULAR VOLUME 85 FL (80-99); PLATELET COUNT 248 K/UL (150-450); RED BLOOD COUNT 2.94 M/UL (4.70-6.10); RED CELL DISTRIBUTION WIDTH 16.9 % (11.6-14.8)
[2019-03-10 05:02] LABS: ALANINE AMINOTRANSFERASE 18 U/L (12-78); ALBUMIN 0.7 G/DL (3.4-5.0); ALBUMIN/GLOBULIN RATIO 0.2 (1.0-2.7); ALKALINE PHOSPHATASE 281 U/L (46-116); ANION GAP 4 mmol/L (5-15); ASPARTATE AMINO TRANSFERASE 24 U/L (15-37); BILIRUBIN,TOTAL 0.5 MG/DL (0.2-1.0); BLOOD UREA NITROGEN 44 mg/dL (7-18); CALCIUM 7.2 MG/DL (8.5-10.1); CARBON DIOXIDE 26 MMOL/L (21-32); CHLORIDE 111 MMOL/L (98-107); CREATININE 0.7 MG/DL (0.55-1.30); POTASSIUM 5.4 MMOL/L (3.5-5.1); SODIUM 141 MMOL/L (136-145)
[2019-03-10 05:05] LABS: WHITE BLOOD COUNT 40.3 K/UL (4.8-10.8)
[2019-03-10] MEDS: metroNIDAZOLE 500mg tab ORAL SCH (05:08)
[2019-03-10] MEDS: Phospha 250 Neutral tab GT SCH ×3 (05:08→21:46)
[2019-03-10] MEDS: dilTIAZem HCl 60mg tab GT SCH ×5 (05:08→23:46)
[2019-03-10] MEDS: NovoLOG Insulin Flexpen SUBQ SCH ×5 (05:43→23:46)
--- NOTE | 2019-03-10 06:44 | NUR ---
NURSE NOTES: Called to notify MD about not transfusing 2unit of PRBC r/t temp, hgb 7.9 this morning. K is at 5.4 and vomiting, request chest rad for possible aspiration. Per ID d/c flagyl 500 GT and order Metronidazole 500mg IV Q 8hr. Will carry out orders and continue to monitor. Will wait for a call back from Dr Lopes in regards to the other aforementioned concerns.
--- NOTE | 2019-03-10 07:01 | NUR ---
RESPIRATORY NOTE: received trach dependent pt on current vent settings with no signs of resp distress at this time. breathing tx are as followed. vent alarms are on and audible. will cont to monitor.
--- NOTE | 2019-03-10 07:24 | NUR ---
HAND-OFF: Report given to NADINE Peralta. Pt remains stable at this time.
--- NOTE | 2019-03-10 07:45 | NUR ---
NURSE NOTES: LATE ENTRY: RECEIVED REPORT FROM THREASA. Wu PT IN BED. OBTUNDED, NO GAG, MINIMAL RESPONSE TO DEEP PAIN. PUPILS UNABLE TO DETERMINE. VS HR 78, RR 16, 123/52, 02 SAT 95%, AX TEMP 97.5. ANASARCA, 4+ PITTING/ WEEPING EDEMA NOTED. ABDOMEN FIRM, DISTENDED, NO BM AT THIS TIME. GT CLAMPED. TUBE FEEDING OFF DUE TO VOMITING EPISODE, . GLUCERNA 1.2 AT 50ML/HR. PT SIMEON, DRAINING DARK KARI URINE. SKIN- SEE ASSESSMENT. CONTACT PRECAUTIONS IN PLACE. BED LOCKED IN LOW POSITION.
[2019-03-10 08:00] VITALS: BP 109/57
[2019-03-10] MEDS: Ascorbic Acid 500mg tab ORAL SCH ×2 (09:00→21:46)
[2019-03-10] MEDS: Aspirin Baby 81mg NG SCH (09:01)
[2019-03-10] MEDS: Zinc Sulfate 220mg cap ORAL SCH (09:01)
--- NOTE | 2019-03-10 10:00 | NUR ---
NURSE NOTES: LATE ENTRY: MD METZ HERE TO SEE PT. INFORMED OF SECRETIONS AND TUBE FEED. NO NEW ORDERS AT THIS TIME.
--- NOTE | 2019-03-10 10:19 | Pulmonology Progress Note ---
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 SEPSIS: PsA UTI and sepsis - persistent bacteremia 2. Lactic acidosis - RESOLVED 3. Tracheostomy status. 4. Dysphagia, status post G-tube. 5. Encephalopathy. 6. Multiple decubitus ulcer. 7. Glaucoma. 8. Hypertension, CAD, CHF with diastolic dysfunction. 9. DNAR. 10. Wound - surgery following TREATMENT PLAN: 1. Ventilatory support, settings reviewed. 2. Titrate O2. 3. Atrovent HHN's 4. Abx per ID 5. Monitor volumes and renal function, D/C IVF 6. Wound care 7. TF's 8. D/C Heparin subcutaneous given worsening anemia. 9. Transfuse PRBC 10. DNAR, continue to discuss goals of care, consider transition back to SNF with hospice - ongoing discussions with niece 11. Surgery followig for wound Subjective Allergies: Coded Allergies: DORZOLAMIDE (Unverified Allergy, Unknown, 12/23/18) LISINOPRIL (Unverified Allergy, Unknown, 12/23/18) TIMOLOL (Unverified Allergy, Unknown, 12/23/18) TIOTROPIUM (Unverified Allergy, Unknown, 12/23/18) Subjective WCt [address] noted AFVSS O2 needs stable on vent No sig secretions Objective Vital Signs Noted General Appearance: cachetic HEENT: status post trach Respiratory/Chest: crackles/rales, rhonchi Cardiovascular: normal peripheral pulses, normal rate, regular rhythm Abdomen: normal bowel sounds, soft, non tender, no organomegaly, non distended , no mass, other - GT Extremities: no cyanosis, no clubbing, no edema Microbiology Date/Time Source Procedure Growth Status 03/07/19 22:30 External Cath Urine Culture - Preliminary Yeast Species Resulted Laboratory Tests 03/09/19 03:50: White Blood Count 32.5*H, Red Blood Count 2.56L, Hemoglobin 6.8*L, Hematocrit 21.6L, Mean Corpuscular Volume 85, Mean Corpuscular Hemoglobin 26.4L, Mean Corpuscular Hemoglobin Concent 31.2L, Red Cell Distribution Width 18.1H, Platelet Count 177, Mean Platelet Volume 9.5, Neutrophils (%) (Auto) , Lymphocytes (%) (Auto) , Monocytes (%) (Auto) , Eosinophils (%) (Auto) , Basophils (%) (Auto) , Differential Total Cells Counted 100, Neutrophils % ( Manual) 77H, Lymphocytes % (Manual) 9L, Monocytes % (Manual) 14H, Eosinophils % (Manual) 0, Basophils % (Manual) 0, Band Neutrophils 0, Platelet Estimate Adequate, Platelet Morphology Normal, Hypochromasia 4+, Anisocytosis 2+, Sodium Level 143, Potassium Level 5.1, Chloride Level 111H, Carbon Dioxide Level 26, Anion Gap 7, Blood Urea Nitrogen 42H, Creatinine 0.7, Estimat Glomerular Filtration Rate , Glucose Level 182H, Calcium Level 7.0L, Amikacin Level Trough 19.3H, Vancomycin Level Trough 22.6H 03/09/19 19:45: Random Amikacin Level [Pending] Current Medications Medications (Trade) Dose Ordered Sig/Katie Route PRN Reason Start Time Stop Time Status Last Admin Dose Admin Acetaminophen (Tylenol) 650 mg Q4H PRN GT Mild Pain/Temp > 100.5 03/04/19 06:30 04/03/19 06:29 03/06/19 23:01 Amikacin Protocol (Amikacin pharmacy to dose) 1 ea DAILY PRN MISC Per rx protocol 03/09/19 16:30 04/08/19 16:29 Amikacin Sulfate 1000 mg/Sodium Chloride 114 ml @ 114 mls/hr Q36H IV 03/10/19 20:00 03/19/19 19:59 Ascorbic Acid (Vitamin C) 250 mg EVERY 12 HOURS ORAL 03/06/19 21:00 04/02/19 17:59 03/09/19 09:44 Aspirin (ASA) 81 mg DAILY NG 03/06/19 09:00 04/05/19 08:59 03/09/19 09:44 Cefepime HCl 1 gm/ Dextrose 50 ml @ 100 mls/hr Q12H IVPB 03/07/19 23:00 03/14/19 22:59 03/09/19 13:41 Dextrose (Dextrose 50%) 25 ml Q30M PRN IV Hypoglycemia 03/01/19 12:30 03/31/19 12:29 03/04/19 18:50 Dextrose (Dextrose 50%) 50 ml Q30M PRN IV Hypoglycemia 03/01/19 12:30 03/31/19 12:29 03/08/19 17:07 Diltiazem HCl (Cardizem) 60 mg EVERY 6 HOURS GT 03/05/19 12:00 04/04/19 11:59 03/09/19 13:50 Fluconazole/ Sodium Chloride 100 ml @ 100 mls/hr Q24H IV 03/09/19 20:00 03/16/19 19:59 03/09/19 19:37 Heparin Sodium (Porcine) (Heparin 5000 units/ml) 5,000 units EVERY 12 HOURS SUBQ 03/01/19 21:00 03/31/19 20:59 03/09/19 09:46 Insulin Aspart (NovoLOG) EVERY 6 HOURS SUBQ 03/04/19 18:00 03/31/19 16:29 03/09/19 06:00 Ipratropium [place] (Atrovent) 500 mcg Q4H PRN HHN Shortness of Breath 03/06/19 14:30 03/11/19 14:29 Ipratropium [place] (Atrovent) 500 mcg Q6HRT HHN 03/06/19 19:00 03/11/19 18:59 03/09/19 19:30 Metronidazole (Flagyl) 500 mg EVERY 8 HOURS ORAL 03/09/19 22:00 03/16/19 21:59 Phosphorus (Phospha 250 Neutral) 250 mg EVERY 8 HOURS GT 03/06/19 14:00 04/01/19 08:59 03/09/19 13:51 Sodium Chloride 1,000 ml @ 125 mls/hr Q8H IV 03/06/19 18:15 04/05/19 18:14 03/09/19 18:20 Vancomycin HCl (Vanco rx to dose) 1 ea DAILY PRN MISC Per rx protocol 03/09/19 16:30 04/08/19 16:29 Vancomycin HCl 750 mg/Sodium Chloride 275 ml @ 183.333 mls/hr Q24H IVPB 03/09/19 17:00 03/14/19 16:59 03/09/19 18:35 Zinc Sulfate (Zinc Sulfate) 220 mg DAILY ORAL 03/04/19 09:00 03/14/19 08:59 03/09/19 09:44 Subjective ROS Limited/Unobtainable: No Allergies: Coded Allergies: DORZOLAMIDE (Unverified Allergy, Unknown, 12/23/18) LISINOPRIL (Unverified Allergy, Unknown, 12/23/18) TIMOLOL (Unverified Allergy, Unknown, 12/23/18) TIOTROPIUM (Unverified Allergy, Unknown, 12/23/18) Objective Last 24 Hour Vital Signs Date Time Temp Pulse Resp B/P (MAP) Pulse Ox O2 Delivery O2 Flow Rate FiO2 03/10/19 08:54 97 12 28 03/10/19 06:57 97 14 100 Mechanical Ventilator 28 101 13 28 03/10/19 05:34 98 12 28 03/10/19 05:08 90 101/58 03/10/19 04:00 28 03/10/19 04:00 Mechanical Ventilator 03/10/19 04:00 97.7 100 14 108/52 (70) 96 03/10/19 03:37 105 03/10/19 03:26 111 18 28 03/10/19 01:20 107 15 100 Mechanical Ventilator 28 109 15 28 03/10/19 00:00 98.4 111 16 117/56 (76) 96 03/10/19 00:00 Mechanical Ventilator 03/09/19 23:56 108 03/09/19 23:10 109 17 28 03/09/19 21:16 109 15 28 03/09/19 20:00 98.8 102 15 110/57 (74) 98 03/09/19 20:00 28 03/09/19 20:00 Mechanical Ventilator 03/09/19 19:43 108 03/09/19 19:30 110 17 100 Mechanical Ventilator 28 105 15 28 03/09/19 18:00 98 104/50 03/09/19 16:57 98 16 28 03/09/19 16:00 98.5 100 20 104/50 (68) 99 03/09/19 16:00 101 03/09/19 16:00 Mechanical Ventilator 03/09/19 16:00 28 03/09/19 14:50 100 16 28 03/09/19 13:50 95 121/62 03/09/19 12:44 93 15 100 Mechanical Ventilator 28 92 12 28 03/09/19 12:00 Mechanical Ventilator 03/09/19 12:00 93.6 116 16 101/54 (70) 99 03/09/19 12:00 28 03/09/19 12:00 101 03/09/19 10:35 86 16 28 Intake and Output 03/09/19 03/10/19 19:00 07:00 Intake Total 3075 ml 1010.000 ml Output Total 250 ml 250 ml Balance 2825 ml 760.000 ml Free Water 200 ml 110 ml IV Total 2425 ml 550.000 ml Tube Feeding 450 ml 350 ml Output Urine Total 250 ml 250 ml # Bowel Movements 1 Microbiology Date/Time Source Procedure Growth Status 03/08/19 06:41 Blood Blood Culture - Preliminary NO GROWTH AFTER 24 HOURS Resulted 03/08/19 06:30 Blood Blood Culture - Preliminary NO GROWTH AFTER 24 HOURS Resulted 03/07/19 22:30 External Cath Urine Culture - Preliminary Yeast Species Resulted Laboratory Tests 03/09/19 19:45: Random Amikacin Level 33.1 03/10/19 04:00: White Blood Count 40.3*H, Red Blood Count 2.94L, Hemoglobin 7.9L, Hematocrit 25.0L, Mean Corpuscular Volume 85, Mean Corpuscular Hemoglobin 27.1, Mean Corpuscular Hemoglobin Concent 31.8L, Red Cell Distribution Width 16.9H, Platelet Count 248, Mean Platelet Volume 9.6, Neutrophils (%) (Auto) , Lymphocytes (%) (Auto) , Monocytes (%) (Auto) , Eosinophils (%) (Auto) , Basophils (%) (Auto) , Differential Total Cells Counted 100, Neutrophils % ( Manual) 71, Lymphocytes % (Manual) 13L, Monocytes % (Manual) 4, Eosinophils % ( Manual) 0, Basophils % (Manual) 0, Myelocytes % 3H, Band Neutrophils 9H, Nucleated Red Blood Cells 2, Platelet Estimate Adequate, Platelet Morphology Normal, Polychromasia 2+, Hypochromasia 1+, Anisocytosis 1+, Sodium Level 141, Potassium Level 5.4H, Chloride Level 111H, Carbon Dioxide Level 26, Anion Gap 4L , Blood Urea Nitrogen 44H, Creatinine 0.7, Estimat Glomerular Filtration Rate , Glucose Level 139H, Calcium Level 7.2L, Total Bilirubin 0.5, Aspartate Amino Transf (AST/SGOT) 24, Alanine Aminotransferase (ALT/SGPT) 18, Alkaline Phosphatase 281H, Total Protein 4.8L, Albumin 0.7L, Globulin 4.1, Albumin/ Globulin Ratio 0.2L Current Medications Medications (Trade) Dose Ordered Sig/Katie Route PRN Reason Start Time Stop Time Status Last Admin Dose Admin Acetaminophen (Tylenol) 650 mg Q4H PRN GT Mild Pain/Temp > 100.5 03/04/19 06:30 04/03/19 06:29 03/06/19 23:01 Amikacin Protocol (Amikacin pharmacy to dose) 1 ea DAILY PRN MISC Per rx protocol 03/09/19 16:30 04/08/19 16:29 Amikacin Sulfate 1000 mg/Sodium Chloride 114 ml @ 114 mls/hr Q36H IV 03/10/19 20:00 03/19/19 19:59 Ascorbic Acid (Vitamin C) 250 mg EVERY 12 HOURS ORAL 03/06/19 21:00 04/02/19 17:59 03/10/19 09:00 Aspirin (ASA) 81 mg DAILY NG 03/06/19 09:00 04/05/19 08:59 03/10/19 09:01 Cefepime HCl 1 gm/ Dextrose 50 ml @ 100 mls/hr Q12H IVPB 03/07/19 23:00 03/14/19 22:59 03/10/19 00:40 Dextrose (Dextrose 50%) 25 ml Q30M PRN IV Hypoglycemia 03/01/19 12:30 03/31/19 12:29 03/04/19 18:50 Dextrose (Dextrose 50%) 50 ml Q30M PRN IV Hypoglycemia 03/01/19 12:30 03/31/19 12:29 03/08/19 17:07 Diltiazem HCl (Cardizem) 60 mg EVERY 6 HOURS GT 03/05/19 12:00 04/04/19 11:59 03/09/19 13:50 Fluconazole/ Sodium Chloride 100 ml @ 100 mls/hr Q24H IV 03/09/19 20:00 03/16/19 19:59 03/09/19 19:37 Insulin Aspart (NovoLOG) EVERY 6 HOURS SUBQ 03/04/19 18:00 03/31/19 16:29 03/09/19 06:00 Ipratropium [place] (Atrovent) 500 mcg Q4H PRN HHN Shortness of Breath 03/06/19 14:30 03/11/19 14:29 Ipratropium [place] (Atrovent) 500 mcg Q6HRT HHN 03/06/19 19:00 03/11/19 18:59 03/10/19 07:01 Metronidazole 100 ml @ 100 mls/hr Q8HR IVPB 03/10/19 14:00 03/17/19 13:59 Phosphorus (Phospha 250 Neutral) 250 mg EVERY 8 HOURS GT 03/06/19 14:00 04/01/19 08:59 03/10/19 05:08 Vancomycin HCl (Vanco rx to dose) 1 ea DAILY PRN MISC Per rx protocol 03/09/19 16:30 04/08/19 16:29 Vancomycin HCl 750 mg/Sodium Chloride 275 ml @ 183.333 mls/hr Q24H IVPB 03/09/19 17:00 03/14/19 16:59 03/09/19 18:35 Zinc Sulfate (Zinc Sulfate) 220 mg DAILY ORAL 03/04/19 09:00 03/14/19 08:59 03/10/19 09:01 Cody Caba MD Mar 10, 2019 10:19
[2019-03-10 12:00] VITALS: BP 100/52
--- NOTE | 2019-03-10 12:00 | NUR ---
NURSE NOTES: LATE ENTRY: PT IN BED. OBTUNDED, TRACH SHILEY 8. VENT SETTINGS AC 12, VT 500, [id number]%, PEEP 5. MODERATE SECRETION DRAINAGE FROM STOMA. HOB 35. PUPILS UNABLE TO DETERMINE. VS HR 90, RR 16, 100/52, 02 SAT 98%, AX TEMP 97. ANASARCA, 4+ PITTING/ WEEPING EDEMA NOTED. ABDOMEN FIRM, DISTENDED, NO BM AT THIS TIME. GT CLAMPED. PT SIMEON, DRAINING DARK KARI URINE. PT HAD ONE LARGE BM, LOOSE BROWN. WOUNDS CLEANED, DRESSING DRY AND INTACT. . CONTACT PRECAUTIONS IN PLACE. BED LOCKED IN LOW POSITION.
--- NOTE | 2019-03-10 12:25 | NUR ---
RD ASSESSMENT & RECOMMENDATIONS SEE CARE ACTIVITY FOR COMPLETE ASSESSMENT DAILY ESTIMATED NEEDS: Needs based on Advanced wounds, Underweight, CRITICAL CARE/ 49.5kg 25-35 kcals/kg 1890-4423 total kcals 1.5-2.0 g protein/kg 74-99 g total protein 25-30 mL/kg 3823-4296 total fluid mLs NUTRITION DIAGNOSIS: (1) Increased kcal/prot needs R/T wound healing, sepsis as evidenced by pt w/ advanced wounds, including full thickness wounds @ Rt elbow and sacrum, unstageable wounds @ RL ischium, RL tibia, RL heels. (2) Swallowing difficulty R/T respiratory status as evidenced trach/vent dep and PEG dep CURRENT TF:Glucerna 1.5 @50ml/hr x20 hrs -> Glucerna 1.2 @ 50ml/hr x 20 hrs HELD ENTERAL NUTRITION RECOMMENDATIONS: Nepro @ 35ml/hr x 24 hrs + Prosource 1pkt daily to provide 840ml, 1512kcal, 68g prot+ 11g prot, 611ml free water -> Rec TF change to Nepro for less K content -> Initiate Nepro @ 15ml/hr x 6 hrs, advance 10ml q 4-6 hrs as tolerated to goal rate -> W/ good TF tolerance, add Prosource 1pkt daily to meet prot needs -> HOB over 30 degrees/ water flush per MD ADDITIONAL RECOMMENDATIONS: * Per SNF: HT=67", Wt trend per SNF: Dec=108#, Jan=131#, Feb=154# -> wt trending up, pt edematous * TXR pt to bed with bedscale, obtain calibrated bedscale wt * Wound healing: continue Vit C + ZnSO4/ ADD MARIE BID via PEG * Monitor lytes closely: K consistently elevated, rec TF change to Nepro * Monitor TF tolerance: s/p vomiting
--- NOTE | 2019-03-10 13:03 | NUR ---
NURSE NOTES: TECH HERE TO DO CXR. VSS.
--- NOTE | 2019-03-10 13:21 | NUR ---
CASE MANAGEMENT: REVIEW 03/10/2019 SI:RESPIRATORY FAILURE TRACH/VENT DEPENDENT. SEPSIS 97.0 AX 12 102 108/52 MECH VENT. FIO2 28 100% WBC 40.3 HGB 7.9 HCT 25.0 K 5.4 CL- 111 BUN 44 CA 7.2 ALK PHOS 281 IS:PHOSPHA GT Q8H FLAGYL IV Q24H MYCAMINE IV Q24H VANCO IV Q24H CARDIZEM GT Q6H SSI NSULIN NEB TX Q6HRT MAXIPIME IV Q12H ASA GT QD WOUND CARE DCP: POSSIBLY BACK TO SNF WITH HOSPICE. ~~~~SDU 2 [facility]
--- NOTE | 2019-03-10 14:50 | Surgery Progress Note ---
Surgery Progress Note Subjective Symptoms: worse Objective Last 24 Hour Vital Signs Date Time Temp Pulse Resp B/P (MAP) Pulse Ox O2 Delivery O2 Flow Rate FiO2 03/10/19 14:37 86 13 28 03/10/19 12:53 87 13 100 Mechanical Ventilator 28 98 12 28 03/10/19 12:47 102 108/52 03/10/19 12:00 96 03/10/19 12:00 Mechanical Ventilator 03/10/19 12:00 97.0 90 16 100/52 (68) 98 03/10/19 12:00 28 03/10/19 11:11 98 12 28 03/10/19 08:54 97 12 28 03/10/19 08:07 99 03/10/19 08:00 Mechanical Ventilator 03/10/19 08:00 28 03/10/19 08:00 97.7 115 18 109/57 (74) 98 03/10/19 06:57 97 14 100 Mechanical Ventilator 28 101 13 28 03/10/19 05:34 98 12 28 03/10/19 05:08 90 101/58 03/10/19 04:00 28 03/10/19 04:00 Mechanical Ventilator 03/10/19 04:00 97.7 100 14 108/52 (70) 96 03/10/19 03:37 105 03/10/19 03:26 111 18 28 03/10/19 01:20 107 15 100 Mechanical Ventilator 28 109 15 28 03/10/19 00:00 98.4 111 16 117/56 (76) 96 03/10/19 00:00 Mechanical Ventilator 03/09/19 23:56 108 03/09/19 23:10 109 17 28 03/09/19 21:16 109 15 28 03/09/19 20:00 98.8 102 15 110/57 (74) 98 03/09/19 20:00 28 03/09/19 20:00 Mechanical Ventilator 03/09/19 19:43 108 03/09/19 19:30 110 17 100 Mechanical Ventilator 28 105 15 28 03/09/19 18:00 98 104/50 03/09/19 16:57 98 16 28 03/09/19 16:00 98.5 100 20 104/50 (68) 99 03/09/19 16:00 101 03/09/19 16:00 Mechanical Ventilator 03/09/19 16:00 28 I&O Intake and Output 03/09/19 03/10/19 19:00 07:00 Intake Total 3075 ml 1010.000 ml Output Total 250 ml 250 ml Balance 2825 ml 760.000 ml Free Water 200 ml 110 ml IV Total 2425 ml 550.000 ml Tube Feeding 450 ml 350 ml Output Urine Total 250 ml 250 ml # Bowel Movements 1 Dressing: other Wound: other Drains: other Cardiovascular: RSR Respiratory: decreased breath sounds Abdomen: soft, present bowel sounds Extremities: no tenderness, no cyanosis Laboratory Tests Test 03/09/19 19:45 03/10/19 04:00 Random Amikacin Level 33.1 MG/L White Blood Count 40.3 K/UL (4.8-10.8) *H Red Blood Count 2.94 M/UL (4.70-6.10) L Hemoglobin 7.9 G/DL (14.2-18.0) L Hematocrit 25.0 % (42.0-52.0) L Mean Corpuscular Volume 85 FL (80-99) Mean Corpuscular Hemoglobin 27.1 PG (27.0-31.0) Mean Corpuscular Hemoglobin Concent 31.8 G/DL (32.0-36.0) L Red Cell Distribution Width 16.9 % (11.6-14.8) H Platelet Count 248 K/UL (150-450) Mean Platelet Volume 9.6 FL (6.5-10.1) Neutrophils (%) (Auto) % (45.0-75.0) Lymphocytes (%) (Auto) % (20.0-45.0) Monocytes (%) (Auto) % (1.0-10.0) Eosinophils (%) (Auto) % (0.0-3.0) Basophils (%) (Auto) % (0.0-2.0) Differential Total Cells Counted 100 Neutrophils % (Manual) 71 % (45-75) Lymphocytes % (Manual) 13 % (20-45) L Monocytes % (Manual) 4 % (1-10) Eosinophils % (Manual) 0 % (0-3) Basophils % (Manual) 0 % (0-2) Myelocytes % 3 % (0-0) H Band Neutrophils 9 % (0-8) H Nucleated Red Blood Cells 2 /100 WBC Platelet Estimate Adequate Platelet Morphology Normal Polychromasia 2+ Hypochromasia 1+ Anisocytosis 1+ Sodium Level 141 MMOL/L (136-145) Potassium Level 5.4 MMOL/L (3.5-5.1) H Chloride Level 111 MMOL/L (98-107) H Carbon Dioxide Level 26 MMOL/L (21-32) Anion Gap 4 mmol/L (5-15) L Blood Urea Nitrogen 44 mg/dL (7-18) H Creatinine 0.7 MG/DL (0.55-1.30) Estimat Glomerular Filtration Rate mL/min (>60) Glucose Level 139 MG/DL (74-106) H Calcium Level 7.2 MG/DL (8.5-10.1) L Total Bilirubin 0.5 MG/DL (0.2-1.0) Aspartate Amino Transf (AST/SGOT) 24 U/L (15-37) Alanine Aminotransferase (ALT/SGPT) 18 U/L (12-78) Alkaline Phosphatase 281 U/L (46-116) H Total Protein 4.8 G/DL (6.4-8.2) L Albumin 0.7 G/DL (3.4-5.0) L Globulin 4.1 g/dL Albumin/Globulin Ratio 0.2 (1.0-2.7) L Plan Problems: (1) Malnutrition Assessment & Plan: DAILY ESTIMATED NEEDS: Needs based on Advanced wounds, Underweight, CRITICAL CARE/ 49.5kg 25-35 kcals/kg 0101-1641 total kcals 1.5-2.0 g protein/kg 74-99 g total protein 25-30 mL/kg 5570-2015 total fluid mLs NUTRITION DIAGNOSIS: (1) Increased kcal/prot needs R/T wound healing, sepsis as evidenced by pt w/ advanced wounds, 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 (2) Swallowing difficulty R/T respiratory status as evidenced trach/vent dep and PEG dep (3) Altered GI function R/T pneumatosis, GIB as evidenced by admitted w/ c/o coffee ground emesis, TF initiated at low rate, now @ goal. CURRENT TF:Glucerna 1.5 @50ml/hr x20 hrs ENTERAL NUTRITION RECOMMENDATIONS: Glucerna 1.5 @ 50ml/hr x 20 hrs to provide 1000ml, 1500 kcal, 82.3g pro, 759ml free H2O -> Maintain current TF to meet 100% est needs -> HOB over 30 degrees/ water flush per MD ADDITIONAL RECOMMENDATIONS: * Per SNF: HT=67", FD=290xla (as of 12/21) Per Dec SNF record -> kx=[id number], pt edematous, wt trending up Rec to RECALIBRATE bed scale for accurate CBW . 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 Altered mental status Continued malnutrition failure to thrive in adult Decubitus skin ulcers Patient evaluated full physical examination completed wounds unlikely etiology of patient's sepsis Micro noted Chest x-ray reviewed Trach in place on support Care plan initiated Discussed with PCP and consultants recommend SNF with hospice Patients condition continue to deteriorate Thank you for let me participation's care will continue to follow with recommendations Sher Keene Mar 10, 2019 14:50
--- NOTE | 2019-03-10 15:40 | Diagnostic Imaging Report ---
Indication: Dyspnea Comparison: 03/09/2019 A single view chest radiograph was obtained. Findings: Pulmonary vascular congestion and bilateral pleural effusions are demonstrated. Findings may be slightly advanced since the last exam. Tracheostomy noted. IMPRESSION: Worsening CHF
[2019-03-10] MEDS: Micafungin 100 MG in NS 110 ML IVPB SCH (15:53)
[2019-03-10 16:00] VITALS: BP 121/50
[2019-03-10] MEDS: Vancomycin 750 MG in NS 275 ML IVPB SCH (17:53)
--- NOTE | 2019-03-10 18:27 | Cardiology Progress Note ---
Assessment/Plan Problem List: (1) Paroxysmal atrial fibrillation (2) Atrial flutter (3) Ventilator dependent (4) Altered level of consciousness (5) Sepsis Assessment & Plan: + bld, sputum cx for Pseudomonas + urine yeast (6) Leukocytosis (7) Edema Status: not improved, unchanged Status Narrative Pt w/ respiratory failure, vent-dependent, with g tube, AMS, with pneumonia ( pseudomonas) UTI ( fungal) decubiti and sepsis. WBC continues to increase. despite broad spectrum abx and fungal coverage Stable BP, off pressors, and SR- sinus tach , on telemetry. Severe peripheral edema, related to hypoalbuminemia - does not appear w/ pulm edema Assessment/Plan REc: continue iv antibiotics, vent support, management as per primary team. H/h improved post transfusion - continue to monitor Continue diltiazem for rate control if AF/ AFL recur No anticoagulation, given severe anemia , ? bleed Overall prognosis poor. DNR status noted. Subjective ROS Limited/Unobtainable: Yes Subjective Cardiology for Dr Melendez Intubated, unresponsive Objective Last 24 Hour Vital Signs Date Time Temp Pulse Resp B/P (MAP) Pulse Ox O2 Delivery O2 Flow Rate FiO2 03/10/19 17:54 102 102/50 03/10/19 17:11 84 12 28 03/10/19 14:37 86 13 28 03/10/19 12:53 87 13 100 Mechanical Ventilator 28 98 12 28 03/10/19 12:47 102 108/52 03/10/19 12:00 96 03/10/19 12:00 Mechanical Ventilator 03/10/19 12:00 97.0 90 16 100/52 (68) 98 03/10/19 12:00 28 03/10/19 11:11 98 12 28 03/10/19 08:54 97 12 28 03/10/19 08:07 99 03/10/19 08:00 Mechanical Ventilator 03/10/19 08:00 28 03/10/19 08:00 97.7 115 18 109/57 (74) 98 03/10/19 06:57 97 14 100 Mechanical Ventilator 28 101 13 28 03/10/19 05:34 98 12 28 03/10/19 05:08 90 101/58 03/10/19 04:00 28 03/10/19 04:00 Mechanical Ventilator 03/10/19 04:00 97.7 100 14 108/52 (70) 96 03/10/19 03:37 105 03/10/19 03:26 111 18 28 03/10/19 01:20 107 15 100 Mechanical Ventilator 28 109 15 28 03/10/19 00:00 98.4 111 16 117/56 (76) 96 03/10/19 00:00 Mechanical Ventilator 03/09/19 23:56 108 03/09/19 23:10 109 17 28 03/09/19 21:16 109 15 28 03/09/19 20:00 98.8 102 15 110/57 (74) 98 03/09/19 20:00 28 03/09/19 20:00 Mechanical Ventilator 03/09/19 19:43 108 03/09/19 19:30 110 17 100 Mechanical Ventilator 28 105 15 28 General Appearance: lethargic, on vent EENT: PERRL/EOMI Neck: no JVD - trach, other Rhythm: NSR Cardiovascular: regular rhythm, no gallop/murmur Respiratory/Chest: other - clear anteriorly Abdomen: non tender, soft, other - + g tube Extremities: severe edema - 3-4+ pitting edema of distal UE LE bilat Intake and Output 03/09/19 03/10/19 19:00 07:00 Intake Total 3075 ml 1010.000 ml Output Total 250 ml 250 ml Balance 2825 ml 760.000 ml Free Water 200 ml 110 ml IV Total 2425 ml 550.000 ml Tube Feeding 450 ml 350 ml Output Urine Total 250 ml 250 ml # Bowel Movements 1 Laboratory Tests Test 03/09/19 19:45 03/10/19 04:00 Random Amikacin Level 33.1 MG/L White Blood Count 40.3 K/UL (4.8-10.8) *H Red Blood Count 2.94 M/UL (4.70-6.10) L Hemoglobin 7.9 G/DL (14.2-18.0) L Hematocrit 25.0 % (42.0-52.0) L Mean Corpuscular Volume 85 FL (80-99) Mean Corpuscular Hemoglobin 27.1 PG (27.0-31.0) Mean Corpuscular Hemoglobin Concent 31.8 G/DL (32.0-36.0) L Red Cell Distribution Width 16.9 % (11.6-14.8) H Platelet Count 248 K/UL (150-450) Mean Platelet Volume 9.6 FL (6.5-10.1) Neutrophils (%) (Auto) % (45.0-75.0) Lymphocytes (%) (Auto) % (20.0-45.0) Monocytes (%) (Auto) % (1.0-10.0) Eosinophils (%) (Auto) % (0.0-3.0) Basophils (%) (Auto) % (0.0-2.0) Differential Total Cells Counted 100 Neutrophils % (Manual) 71 % (45-75) Lymphocytes % (Manual) 13 % (20-45) L Monocytes % (Manual) 4 % (1-10) Eosinophils % (Manual) 0 % (0-3) Basophils % (Manual) 0 % (0-2) Myelocytes % 3 % (0-0) H Band Neutrophils 9 % (0-8) H Nucleated Red Blood Cells 2 /100 WBC Platelet Estimate Adequate Platelet Morphology Normal Polychromasia 2+ Hypochromasia 1+ Anisocytosis 1+ Sodium Level 141 MMOL/L (136-145) Potassium Level 5.4 MMOL/L (3.5-5.1) H Chloride Level 111 MMOL/L (98-107) H Carbon Dioxide Level 26 MMOL/L (21-32) Anion Gap 4 mmol/L (5-15) L Blood Urea Nitrogen 44 mg/dL (7-18) H Creatinine 0.7 MG/DL (0.55-1.30) Estimat Glomerular Filtration Rate mL/min (>60) Glucose Level 139 MG/DL (74-106) H Calcium Level 7.2 MG/DL (8.5-10.1) L Total Bilirubin 0.5 MG/DL (0.2-1.0) Aspartate Amino Transf (AST/SGOT) 24 U/L (15-37) Alanine Aminotransferase (ALT/SGPT) 18 U/L (12-78) Alkaline Phosphatase 281 U/L (46-116) H Total Protein 4.8 G/DL (6.4-8.2) L Albumin 0.7 G/DL (3.4-5.0) L Globulin 4.1 g/dL Albumin/Globulin Ratio 0.2 (1.0-2.7) L Microbiology Date/Time Source Procedure Growth Status 03/08/19 06:41 Blood Blood Culture - Preliminary NO GROWTH AFTER 24 HOURS Resulted 03/08/19 06:30 Blood Blood Culture - Preliminary Resulted 03/07/19 22:30 External Cath Urine Culture - Preliminary Yeast Species Resulted Chinyere Arriaza MD Mar 10, 2019 18:27
--- NOTE | 2019-03-10 19:00 | NUR ---
HAND-OFF: Report given to LULÚ Marrero SBAR USED. ENDORSED F/U W/ TUBE FEEDINGS
--- NOTE | 2019-03-10 19:15 | NUR ---
NURSE NOTES: Report received form NADINE Peralta. Observed pt lying in the bed, SR on fws faculty assistant. On vent, AC 12, TV 500, FIO2 28, PEEP 5, no SOB. GT intact, running Glucerna 1.2 at 10cc/hr, will increase 15cc per 4 hours to meet the goal. IV on L EJ, TKO, asymptomatic. F/C intact and draining yellow urine. Bed in the lowest position. Side rails up x3. Will continue to monitor.
[2019-03-10 20:00] VITALS: BP 108/57
[2019-03-10] MEDS ORDERED: Amikacin 1,000 MG in NS 110 ML IV SCH (20:00)
--- NOTE | 2019-03-10 23:00 | NUR ---
NURSE NOTES: Noted pt temperature of 95.0, rachel hugger applied. No other distress noted at this time. Will continue to monitor.
[2019-03-11] VITALS: BP 107/59
--- NOTE | 2019-03-11 00:09 | NUR ---
NURSE NOTES: Pt sleeping in the bed, no acute change noted. SR on mortuary operations manager. On vent, same setting, no sob noted. Reposition done q 2hr. Oral care given. Will continue to monitor.
[2019-03-11] MEDS: Ipratropium 0.02% Inh Soln 2.5ml UD HHN SCH ×3 (01:39→12:20)
[2019-03-11 04:00] VITALS: BP 131/64
--- NOTE | 2019-03-11 04:00 | NUR ---
NURSE NOTES: No acute distress noted at this time. Tolerating tube feeding, no residual noted, Glucerna 1.2 at 25cc/hr. Will continue to monitor.
[2019-03-11] MEDS: NovoLOG Insulin Flexpen SUBQ SCH ×4 (05:59→23:04)
[2019-03-11] MEDS: dilTIAZem HCl 60mg tab GT SCH ×4 (06:00→23:05)
[2019-03-11] MEDS: Phospha 250 Neutral tab GT SCH ×3 (06:02→21:04)
--- NOTE | 2019-03-11 07:35 | NUR ---
HAND-OFF: Report given to NADINE Mendez.
--- NOTE | 2019-03-11 07:36 | NUR ---
NURSE NOTES: Received patient from NADINE Doe. Patient unreponsive at this time. Patient does not respond to name, shaking or light pain. Patient mouth open. Patient closes mouth when oral care done. Patient does not open eyes. Patient showing sinus rhythm on the in store marketing representative at this time. patient on trach shiley 8 size with ventilator setting of AC 12, tidal volume 500, FiO2 28%, and PEEP 5. Patient has gastrostomy tube that is patent, asymptomatic, and running Glucerna 1.2 at 40mL/hr at this time. Goal is 50mL/hr. Will increase feeding rate as tolerated. Patient has left external jugular peripheral IV that is patent, asymptomatic, and saline locked at this time. Patient has scrotal swelling, right elbow full thickness pressure ulcer, sacral full thickness pressure injury, bilateral heel un-stageable wounds, right and left tibia wound, right and left ischium un-stageable wounds. Patient has generalized pitting edema with weeping of bilateral upper arms. All wounds covered with dressing dry and intact. Patient on full low air loss mattress. Will turn patient every two hours. No labs drawn this morning. Will ask MD when he arrives if he wants labs drawn. Patient bed in low position with bed alarm on and call light in reach at this time. Oral care and repositioning done at this time. Will continue to monitor.
[2019-03-11 08:00] VITALS: BP 120/89
[2019-03-11] MEDS: Zinc Sulfate 220mg cap ORAL SCH (09:10)
[2019-03-11] MEDS: Aspirin Baby 81mg NG SCH (09:10)
[2019-03-11] MEDS: Ascorbic Acid 500mg tab ORAL SCH ×2 (09:10→21:05)
--- NOTE | 2019-03-11 09:47 | Pulmonology Progress Note ---
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 SEPSIS: PsA UTI and sepsis - persistent bacteremia 2. Lactic acidosis - RESOLVED 3. Tracheostomy status. 4. Dysphagia, status post G-tube. 5. Encephalopathy. 6. Multiple decubitus ulcer. 7. Glaucoma. 8. Hypertension, CAD, CHF with diastolic dysfunction. 9. DNAR. 10. Wound - surgery following TREATMENT PLAN: 1. Ventilatory support, settings reviewed. 2. Titrate O2. 3. Atrovent HHN's 4. Abx per ID 5. Monitor volumes and renal function, D/C IVF 6. Wound care 7. TF's 8. D/C Heparin subcutaneous given worsening anemia. 9. Transfuse PRBC 10. DNAR, continue to discuss goals of care, consider transition back to SNF with hospice - ongoing discussions with niece 11. Surgery followig for wound Subjective Allergies: Coded Allergies: DORZOLAMIDE (Unverified Allergy, Unknown, 12/23/18) LISINOPRIL (Unverified Allergy, Unknown, 12/23/18) TIMOLOL (Unverified Allergy, Unknown, 12/23/18) TIOTROPIUM (Unverified Allergy, Unknown, 12/23/18) Subjective WCt [address] noted AFVSS O2 needs stable on vent No sig secretions Objective Vital Signs Noted General Appearance: cachetic HEENT: status post trach Respiratory/Chest: crackles/rales, rhonchi Cardiovascular: normal peripheral pulses, normal rate, regular rhythm Abdomen: normal bowel sounds, soft, non tender, no organomegaly, non distended , no mass, other - GT Extremities: no cyanosis, no clubbing, no edema Microbiology Date/Time Source Procedure Growth Status 03/07/19 22:30 External Cath Urine Culture - Preliminary Yeast Species Resulted Laboratory Tests 03/09/19 03:50: White Blood Count 32.5*H, Red Blood Count 2.56L, Hemoglobin 6.8*L, Hematocrit 21.6L, Mean Corpuscular Volume 85, Mean Corpuscular Hemoglobin 26.4L, Mean Corpuscular Hemoglobin Concent 31.2L, Red Cell Distribution Width 18.1H, Platelet Count 177, Mean Platelet Volume 9.5, Neutrophils (%) (Auto) , Lymphocytes (%) (Auto) , Monocytes (%) (Auto) , Eosinophils (%) (Auto) , Basophils (%) (Auto) , Differential Total Cells Counted 100, Neutrophils % ( Manual) 77H, Lymphocytes % (Manual) 9L, Monocytes % (Manual) 14H, Eosinophils % (Manual) 0, Basophils % (Manual) 0, Band Neutrophils 0, Platelet Estimate Adequate, Platelet Morphology Normal, Hypochromasia 4+, Anisocytosis 2+, Sodium Level 143, Potassium Level 5.1, Chloride Level 111H, Carbon Dioxide Level 26, Anion Gap 7, Blood Urea Nitrogen 42H, Creatinine 0.7, Estimat Glomerular Filtration Rate , Glucose Level 182H, Calcium Level 7.0L, Amikacin Level Trough 19.3H, Vancomycin Level Trough 22.6H 03/09/19 19:45: Random Amikacin Level [Pending] Current Medications Medications (Trade) Dose Ordered Sig/Katie Route PRN Reason Start Time Stop Time Status Last Admin Dose Admin Acetaminophen (Tylenol) 650 mg Q4H PRN GT Mild Pain/Temp > 100.5 03/04/19 06:30 04/03/19 06:29 03/06/19 23:01 Amikacin Protocol (Amikacin pharmacy to dose) 1 ea DAILY PRN MISC Per rx protocol 03/09/19 16:30 04/08/19 16:29 Amikacin Sulfate 1000 mg/Sodium Chloride 114 ml @ 114 mls/hr Q36H IV 03/10/19 20:00 03/19/19 19:59 Ascorbic Acid (Vitamin C) 250 mg EVERY 12 HOURS ORAL 03/06/19 21:00 04/02/19 17:59 03/09/19 09:44 Aspirin (ASA) 81 mg DAILY NG 03/06/19 09:00 04/05/19 08:59 03/09/19 09:44 Cefepime HCl 1 gm/ Dextrose 50 ml @ 100 mls/hr Q12H IVPB 03/07/19 23:00 03/14/19 22:59 03/09/19 13:41 Dextrose (Dextrose 50%) 25 ml Q30M PRN IV Hypoglycemia 03/01/19 12:30 03/31/19 12:29 03/04/19 18:50 Dextrose (Dextrose 50%) 50 ml Q30M PRN IV Hypoglycemia 03/01/19 12:30 03/31/19 12:29 03/08/19 17:07 Diltiazem HCl (Cardizem) 60 mg EVERY 6 HOURS GT 03/05/19 12:00 04/04/19 11:59 03/09/19 13:50 Fluconazole/ Sodium Chloride 100 ml @ 100 mls/hr Q24H IV 03/09/19 20:00 03/16/19 19:59 03/09/19 19:37 Heparin Sodium (Porcine) (Heparin 5000 units/ml) 5,000 units EVERY 12 HOURS SUBQ 03/01/19 21:00 03/31/19 20:59 03/09/19 09:46 Insulin Aspart (NovoLOG) EVERY 6 HOURS SUBQ 03/04/19 18:00 03/31/19 16:29 03/09/19 06:00 Ipratropium [place] (Atrovent) 500 mcg Q4H PRN HHN Shortness of Breath 03/06/19 14:30 03/11/19 14:29 Ipratropium [place] (Atrovent) 500 mcg Q6HRT HHN 03/06/19 19:00 03/11/19 18:59 03/09/19 19:30 Metronidazole (Flagyl) 500 mg EVERY 8 HOURS ORAL 03/09/19 22:00 03/16/19 21:59 Phosphorus (Phospha 250 Neutral) 250 mg EVERY 8 HOURS GT 03/06/19 14:00 04/01/19 08:59 03/09/19 13:51 Sodium Chloride 1,000 ml @ 125 mls/hr Q8H IV 03/06/19 18:15 04/05/19 18:14 03/09/19 18:20 Vancomycin HCl (Vanco rx to dose) 1 ea DAILY PRN MISC Per rx protocol 03/09/19 16:30 04/08/19 16:29 Vancomycin HCl 750 mg/Sodium Chloride 275 ml @ 183.333 mls/hr Q24H IVPB 03/09/19 17:00 03/14/19 16:59 03/09/19 18:35 Zinc Sulfate (Zinc Sulfate) 220 mg DAILY ORAL 03/04/19 09:00 03/14/19 08:59 03/09/19 09:44 Subjective ROS Limited/Unobtainable: No Allergies: Coded Allergies: DORZOLAMIDE (Unverified Allergy, Unknown, 12/23/18) LISINOPRIL (Unverified Allergy, Unknown, 12/23/18) TIMOLOL (Unverified Allergy, Unknown, 12/23/18) TIOTROPIUM (Unverified Allergy, Unknown, 12/23/18) Objective Last 24 Hour Vital Signs Date Time Temp Pulse Resp B/P (MAP) Pulse Ox O2 Delivery O2 Flow Rate FiO2 03/11/19 09:25 97 14 28 03/11/19 08:00 89 03/11/19 08:00 96.4 96 17 120/89 (99) 100 03/11/19 08:00 Mechanical Ventilator 03/11/19 08:00 28 03/11/19 07:00 101 13 100 Mechanical Ventilator 40.0 28 98 13 28 03/11/19 06:00 97 100/68 03/11/19 05:46 91 12 28 03/11/19 04:00 95.7 80 14 131/64 (86) 100 03/11/19 04:00 85 03/11/19 04:00 Mechanical Ventilator 03/11/19 04:00 28 03/11/19 03:24 83 12 28 03/11/19 01:39 78 13 100 Mechanical Ventilator 28 79 12 28 03/11/19 00:00 Mechanical Ventilator 03/11/19 00:00 95.0 75 16 107/59 (75) 100 03/11/19 00:00 28 03/11/19 00:00 87 03/10/19 23:46 70 100/59 03/10/19 23:31 75 12 28 03/10/19 21:19 79 12 28 03/10/19 20:00 95.0 78 16 108/57 (74) 100 03/10/19 20:00 Mechanical Ventilator 03/10/19 20:00 28 03/10/19 19:38 84 03/10/19 19:12 81 12 100 Mechanical Ventilator 28 86 12 28 03/10/19 17:54 102 102/50 03/10/19 17:11 84 12 28 03/10/19 16:00 98.0 80 16 121/50 (73) 97 03/10/19 16:00 28 03/10/19 16:00 Mechanical Ventilator 03/10/19 16:00 92 03/10/19 16:00 Mechanical Ventilator 03/10/19 14:37 86 13 28 03/10/19 12:53 87 13 100 Mechanical Ventilator 28 98 12 28 03/10/19 12:47 102 108/52 03/10/19 12:00 96 03/10/19 12:00 Mechanical Ventilator 03/10/19 12:00 97.0 90 16 100/52 (68) 98 03/10/19 12:00 28 03/10/19 11:11 98 12 28 Intake and Output 03/10/19 03/11/19 19:00 07:00 Intake Total 100 ml 440 ml Output Total 350 ml 250 ml Balance -250 ml 190 ml Free Water 110 ml IV Total 100 ml 150 ml Tube Feeding 180 ml Output Urine Total 350 ml 250 ml # Bowel Movements 3 2 Laboratory Tests 03/10/19 22:35: Random Amikacin Level [Pending] Current Medications Medications (Trade) Dose Ordered Sig/Katie Route PRN Reason Start Time Stop Time Status Last Admin Dose Admin Acetaminophen (Tylenol) 650 mg Q4H PRN GT Mild Pain/Temp > 100.5 03/04/19 06:30 04/03/19 06:29 03/06/19 23:01 Amikacin Protocol (Amikacin pharmacy to dose) 1 ea DAILY PRN MISC Per rx protocol 03/09/19 16:30 04/08/19 16:29 Ascorbic Acid (Vitamin C) 250 mg EVERY 12 HOURS ORAL 03/06/19 21:00 04/02/19 17:59 03/11/19 09:10 Aspirin (ASA) 81 mg DAILY NG 03/06/19 09:00 04/05/19 08:59 03/11/19 09:10 Cefepime HCl 1 gm/ Dextrose 50 ml @ 100 mls/hr Q12H IVPB 03/07/19 23:00 03/14/19 22:59 03/10/19 23:46 Dextrose (Dextrose 50%) 25 ml Q30M PRN IV Hypoglycemia 03/01/19 12:30 03/31/19 12:29 03/04/19 18:50 Dextrose (Dextrose 50%) 50 ml Q30M PRN IV Hypoglycemia 03/01/19 12:30 03/31/19 12:29 03/08/19 17:07 Diltiazem HCl (Cardizem) 60 mg EVERY 6 HOURS GT 03/05/19 12:00 04/04/19 11:59 03/11/19 06:00 Insulin Aspart (NovoLOG) EVERY 6 HOURS SUBQ 03/04/19 18:00 03/31/19 16:29 03/09/19 06:00 Ipratropium [place] (Atrovent) 500 mcg Q4H PRN HHN Shortness of Breath 03/06/19 14:30 03/11/19 14:29 Ipratropium [place] (Atrovent) 500 mcg Q6HRT HHN 03/06/19 19:00 03/11/19 18:59 03/11/19 08:29 Metronidazole 100 ml @ 100 mls/hr Q8HR IVPB 03/10/19 14:00 03/17/19 13:59 03/11/19 06:00 Micafungin Sodium 100 mg/Sodium Chloride 110 ml @ 110 mls/hr Q24H IVPB 03/10/19 15:00 03/17/19 14:59 03/10/19 15:53 Phosphorus (Phospha 250 Neutral) 250 mg EVERY 8 HOURS GT 03/06/19 14:00 04/01/19 08:59 03/11/19 06:02 Vancomycin HCl (Vanco rx to dose) 1 ea DAILY PRN MISC Per rx protocol 03/09/19 16:30 04/08/19 16:29 Vancomycin HCl 750 mg/Sodium Chloride 275 ml @ 183.333 mls/hr Q24H IVPB 03/09/19 17:00 03/14/19 16:59 03/10/19 17:53 Zinc Sulfate (Zinc Sulfate) 220 mg DAILY ORAL 03/04/19 09:00 03/14/19 08:59 03/11/19 09:10 Cody Caba MD Mar 11, 2019 09:47
--- NOTE | 2019-03-11 09:52 | NUR ---
RADIOLOGY DEPT., CHEST X-RAY DONE.-P.DYE
--- NOTE | 2019-03-11 09:56 | Diagnostic Imaging Report ---
EXAM: XR Chest, 1 View CLINICAL HISTORY: INFECT TECHNIQUE: Frontal view of the chest. COMPARISON: Chest x-rays dated 03/10/19, 02/08/19, 01/31/19 FINDINGS: Lungs: Subsegmental atelectasis versus infiltrates in bilateral lung bases. No new consolidation seen. Mild pulmonary vascular congestion, unchanged. Pleural space: No significant change in small bilateral layering pleural effusions. Heart: Unremarkable. No cardiomegaly. Mediastinum: Unremarkable. Bones/joints: Unremarkable. Tubes, lines and devices: Stable positioning of the tracheostomy tube. Telemetry leads overlie the thorax. IMPRESSION: No significant interval change from the prior chest x-ray. Mild pulmonary vascular congestion with persistent small bilateral layering pleural effusions. Subsegmental atelectasis versus infiltrates in bilateral lung bases.
--- NOTE | 2019-03-11 10:00 | NUR ---
NURSE NOTES: vital signs stable. No sign of acute distress. Mentation remains the same. Repositioning done at this time. Will continue to monitor.
[2019-03-11 12:00] VITALS: BP 125/68
--- NOTE | 2019-03-11 12:00 | NUR ---
NURSE NOTES: Patient remains unreponsive. Sinus rhythm on the potline monitor. patient on trach shiley 6 size with ventilator setting of AC 12, tidal volume 500, FiO2 28%, and PEEP 5. Gastrostomy tube patent, asymptomatic, and running Glucerna 1.2 at 50mL/hr at this time. Left external jugular peripheral IV patent, asymptomatic, and saline locked. Patient continues to have generalized pitting edema with weeping of bilateral upper arms. All wounds covered with dressing dry and intact. Patient on full low air loss mattress. Will continue to turn patient every two hours. Patient bed in low position with bed alarm on and call light in reach at this time. Oral care and repositioning done at this time. Will continue to monitor.
--- NOTE | 2019-03-11 13:18 | Surgery Progress Note ---
Surgery Progress Note Subjective Symptoms: worse Objective Last 24 Hour Vital Signs Date Time Temp Pulse Resp B/P (MAP) Pulse Ox O2 Delivery O2 Flow Rate FiO2 03/11/19 12:37 97 196/75 03/11/19 12:20 95 16 100 Mechanical Ventilator 40.0 28 98 14 28 03/11/19 12:07 90 18 100 Mechanical Ventilator 28 03/11/19 11:00 100 16 28 03/11/19 09:25 97 14 28 03/11/19 08:00 89 03/11/19 08:00 96.4 96 17 120/89 (99) 100 03/11/19 08:00 Mechanical Ventilator 03/11/19 08:00 28 03/11/19 07:00 101 13 100 Mechanical Ventilator 40.0 28 98 13 28 03/11/19 06:00 97 100/68 03/11/19 05:46 91 12 28 03/11/19 04:00 95.7 80 14 131/64 (86) 100 03/11/19 04:00 85 03/11/19 04:00 Mechanical Ventilator 03/11/19 04:00 28 03/11/19 03:24 83 12 28 03/11/19 01:39 78 13 100 Mechanical Ventilator 28 79 12 28 03/11/19 00:00 Mechanical Ventilator 03/11/19 00:00 95.0 75 16 107/59 (75) 100 03/11/19 00:00 28 03/11/19 00:00 87 03/10/19 23:46 70 100/59 03/10/19 23:31 75 12 28 03/10/19 21:19 79 12 28 03/10/19 20:00 95.0 78 16 108/57 (74) 100 03/10/19 20:00 Mechanical Ventilator 03/10/19 20:00 28 03/10/19 19:38 84 03/10/19 19:12 81 12 100 Mechanical Ventilator 28 86 12 28 03/10/19 17:54 102 102/50 03/10/19 17:11 84 12 28 03/10/19 16:00 98.0 80 16 121/50 (73) 97 03/10/19 16:00 28 03/10/19 16:00 Mechanical Ventilator 03/10/19 16:00 92 03/10/19 16:00 Mechanical Ventilator 1/31/20 14:37 86 13 28 I&O Intake and Output 03/10/19 03/11/19 19:00 07:00 Intake Total 100 ml 440 ml Output Total 350 ml 250 ml Balance -250 ml 190 ml Free Water 110 ml IV Total 100 ml 150 ml Tube Feeding 180 ml Output Urine Total 350 ml 250 ml # Bowel Movements 3 2 Dressing: other Wound: other Drains: other Cardiovascular: RSR Respiratory: decreased breath sounds Abdomen: soft, present bowel sounds, non-distended Extremities: no cyanosis, other Laboratory Tests Test 03/10/19 22:35 Random Amikacin Level Pending Plan Problems: (1) Malnutrition Assessment & Plan: DAILY ESTIMATED NEEDS: Needs based on Advanced wounds, Underweight, CRITICAL CARE/ 49.5kg 25-35 kcals/kg 4508-9369 total kcals 1.5-2.0 g protein/kg 74-99 g total protein 25-30 mL/kg 2177-4090 total fluid mLs NUTRITION DIAGNOSIS: (1) Increased kcal/prot needs R/T wound healing, sepsis as evidenced by pt w/ advanced wounds, 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 (2) Swallowing difficulty R/T respiratory status as evidenced trach/vent dep and PEG dep (3) Altered GI function R/T pneumatosis, GIB as evidenced by admitted w/ c/o coffee ground emesis, TF initiated at low rate, now @ goal. CURRENT TF:Glucerna 1.5 @50ml/hr x20 hrs ENTERAL NUTRITION RECOMMENDATIONS: Glucerna 1.5 @ 50ml/hr x 20 hrs to provide 1000ml, 1500 kcal, 82.3g pro, 759ml free H2O -> Maintain current TF to meet 100% est needs -> HOB over 30 degrees/ water flush per MD ADDITIONAL RECOMMENDATIONS: * Per SNF: HT=67", [id number] (as of 12/21) Per Dec SNF record -> [id number], pt edematous, wt trending up Rec to RECALIBRATE bed scale for accurate CBW . 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 Altered mental status Continued malnutrition failure to thrive in adult Decubitus skin ulcers Patient evaluated full physical examination completed wounds unlikely etiology of patient's sepsis Micro noted Chest x-ray reviewed Trach in place on support Care plan initiated Discussed with PCP and consultants recommend SNF with hospice Patients condition continue to deteriorate Thank you for let me participation's care will continue to follow with recommendations Sher Keene Mar 11, 2019 13:18
[2019-03-11] MEDS ORDERED: 1/2 NS 1000ml IV ONE (14:09)
[2019-03-11] MEDS ORDERED: NS 275ml ONE (14:09)
[2019-03-11] MEDS ORDERED: Tubing IV Secondary IV ONE (14:09)
[2019-03-11] MEDS: Micafungin 100 MG in NS 110 ML IVPB SCH (15:19)
[2019-03-11 16:00] VITALS: BP 132/59
--- NOTE | 2019-03-11 16:00 | NUR ---
NURSE NOTES: Patient remains unresponsive. Sinus rhythm on the front desk monitor. Patient on trach shiley 6 size with ventilator setting of AC 12, tidal volume 500, FiO2 28%, and PEEP 5. Gastrostomy tube patent, asymptomatic, and running Glucerna 1.2 at 50mL/hr at this time. Left external jugular peripheral IV patent, asymptomatic, and saline locked. Patient continues to have generalized pitting edema with weeping of bilateral upper arms. All wounds covered with dressing dry and intact. Patient on full low air loss mattress. Will continue to turn patient every two hours. Patient bed in low position with bed alarm on and call light in reach at this time. Oral care and repositioning done at this time. Will continue to monitor.
--- NOTE | 2019-03-11 16:57 | Infectious Diseases Prog Note ---
Assessment/Plan Assessment/Plan ASSESSMENT/PLAN; 1. sepsis, pseudomonas bacteremia, gram neg sepsis, pseudomonas uti/pna, sirs, leukocytosis, multiple wounds, ? osteo on CT fungemia +, fungal uti - vancomycin, cefepime, amikacin, flagyl - day # 11 abx - day # 2 micafungin for fungemia - monitor labs and chest x-ray, CT noted and no abscess - wound care per surgery and protocol, debridement if indicated, surgery f/u - poor prognosis 2. trach, vent and respiratory failure. 3. Dysphagia, G-tube. 4. Wound care protocol. 5. History of decubitus. 6. hypercapnia 7. Blood pressure treatment per primary care team. 8. Depression. 9. Diastolic heart failure. 10. Coronary artery disease. 11. GERD. 12. Glaucoma. 13. GI bleed. 14. Osteoarthritis. 15. BPH. 16. Malnutrition. 17. Allergies to dorzolamide, lisinopril, timolol, tiotropium, Spiriva. 18. Family history is noncontributory. 19. Social history is negative. 20. MAR was noted. 21. Case was discussed with RN. 22. ICU care. 23. Continue treatment per primary consultants. 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 Subjective Constitutional: Reports: other - trach, vent, poorly responsive ; Denies: fever HEENT: Reports: congestion Respiratory: Reports: shortness of breath Cardiovascular: Reports: other - no pressors Gastrointestinal/Abdominal: Reports: diarrhea; Denies: nausea, vomiting Genitourinary: Reports: other - + kline Neurologic: Reports: weakness Psychiatric: Reports: other - NA Skin: Denies: rash Hematologic: Denies: bleeding Musculoskeletal: Reports: other - NA Allergies: Coded Allergies: DORZOLAMIDE (Unverified Allergy, Unknown, 12/23/18) LISINOPRIL (Unverified Allergy, Unknown, 12/23/18) TIMOLOL (Unverified Allergy, Unknown, 12/23/18) TIOTROPIUM (Unverified Allergy, Unknown, 12/23/18) Objective Vital Signs Last 24 Hour Vital Signs Date Time Temp Pulse Resp B/P (MAP) Pulse Ox O2 Delivery O2 Flow Rate FiO2 03/11/19 16:00 28 03/11/19 16:00 Mechanical Ventilator 03/11/19 15:44 92 16 28 03/11/19 13:21 95 16 100 Mechanical Ventilator 40.0 28 98 14 28 03/11/19 12:37 97 196/75 03/11/19 12:07 90 18 100 Mechanical Ventilator 28 03/11/19 12:00 96.6 98 17 125/68 (87) 100 03/11/19 12:00 28 03/11/19 12:00 90 03/11/19 12:00 Mechanical Ventilator 03/11/19 11:00 100 16 28 03/11/19 09:25 97 14 28 03/11/19 08:00 89 03/11/19 08:00 96.4 96 17 120/89 (99) 100 03/11/19 08:00 Mechanical Ventilator 03/11/19 08:00 28 03/11/19 07:00 101 13 100 Mechanical Ventilator 40.0 28 98 13 28 03/11/19 06:00 97 100/68 03/11/19 05:46 91 12 28 03/11/19 04:00 95.7 80 14 131/64 (86) 100 03/11/19 04:00 85 03/11/19 04:00 Mechanical Ventilator 03/11/19 04:00 28 03/11/19 03:24 83 12 28 03/11/19 01:39 78 13 100 Mechanical Ventilator 28 79 12 28 03/11/19 00:00 Mechanical Ventilator 03/11/19 00:00 95.0 75 16 107/59 (75) 100 03/11/19 00:00 28 03/11/19 00:00 87 03/10/19 23:46 70 100/59 03/10/19 23:31 75 12 28 03/10/19 21:19 79 12 28 03/10/19 20:00 95.0 78 16 108/57 (74) 100 03/10/19 20:00 Mechanical Ventilator 03/10/19 20:00 28 03/10/19 19:38 84 03/10/19 19:12 81 12 100 Mechanical Ventilator 28 86 12 28 03/10/19 17:54 102 102/50 03/10/19 17:11 84 12 28 Height (Feet): 5 Height (Inches): 7.00 Weight (Pounds): 153 General Appearance: other - trach, vent, poorly respnonsive HEENT: normocephalic, atraumatic, anicteric, no JVD, status post trach Respiratory/Chest: crackles/rales, rhonchi - bilaterally Cardiovascular: normal rate, regular rhythm, no gallop/murmur Abdomen: normal bowel sounds, soft, non tender, no organomegaly, non distended Genitourinary: other - + kline Extremities: other - wounds - covered Skin: no rash Neurologic/Psychiatric: motor weakness, other - lethargic Lymphatic: no neck adenopathy Musculoskeletal: no effusion Objective 03/01/19 - chest x-ray - Procedure: XRAY Chest 1v Indication: Dyspnea Comparison: 03/01/2019 at 02:53 A single view chest radiograph was obtained. Findings: 15:20 Lungs are hyperexpanded. 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 This is probably chronic and due to pleural thickening as the configuration has not changed over several days. Heart size appears stable. Tracheostomy is again noted. Pulmonary vascularity appears mildly prominent as it did previously. IMPRESSION: No significant change from the earlier film 03/03/19 - chest x-ray - Procedure: XRAY Chest 1v Indication: Shortness of breath Technique: One view of the chest Comparison: 03/01/2019 Findings: There is increasing hazy parenchymal consolidation at both lung bases. There are again demonstrated bilateral pleural effusions, appearing stable on the left and likely slightly increased on the right. Tracheostomy remains. The heart size is normal Impression: Increasing bilateral basilar hazy infiltrates and increasing right pleural fluid, over one day. Other stable findings as noted Chest x-ray - 03/06/19 - IMPRESSION: COPD. CHF with bilateral pleural effusions suspected. No significant change from the last exam 03/09/19 - chest x-ray - Procedure: XRAY Chest 1v Indication: Dyspnea Technique: One view of the chest Comparison: 03/06/2019 Findings: There is bilateral interstitial and airspace edema again noted. There are bilateral pleural effusions again noted. There is a tracheostomy in good position. The heart size is normal. There is no significant interim change Impression: Unchanged, over 3 days, findings as above. CT abdomen and pelvis: Impression: Extensive and progressive decubitus ulceration in the retrococcygeal region, with equivocally progressive destructive changes of the proximal coccyx Evidence of anasarca, with large bilateral pleural effusions, small to moderate ascites, diffuse soft tissue edema, marked scrotal wall edema and likely bilateral hydroceles Left inguinal hernia containing a sizable loop of small bowel. Associated herniation of ascites into the hernia sac. No evidence of obstruction or strangulation Interim resolution of previously demonstrated, in retrospect, gastric wall pneumatosis. Gastrostomy in good position. Cholelithiasis, also previously reported Compressive atelectasis of much of both pulmonary lower lobes due to the pleural fluid Chest x-ray - 03/11/19 - IMPRESSION: No significant interval change from the prior chest x-ray. Mild pulmonary vascular congestion with persistent small bilateral layering pleural effusions. Subsegmental atelectasis versus infiltrates in bilateral lung bases. Microbiology Date/Time Source Procedure Growth Status 03/08/19 06:41 Blood Blood Culture - Preliminary NO GROWTH AFTER 48 HOURS Resulted 03/01/19 07:33 Sputum Gram Stain - Final Complete 03/01/19 07:33 Sputum Culture - Final Pseudomonas Aeruginosa Complete 03/07/19 22:30 External Cath Urine Culture - Final Aruna Parapsilosis Complete 03/01/19 04:17 Rectum - Final NO CARBAPENEM-RESISTANT ENTEROBACTERI... Complete Labs Test 03/09/19 03:50 03/09/19 19:45 03/10/19 04:00 03/10/19 22:35 White Blood Count 32.5 K/UL (4.8-10.8) 40.3 K/UL (4.8-10.8) Red Blood Count 2.56 M/UL (4.70-6.10) 2.94 M/UL (4.70-6.10) Hemoglobin 6.8 G/DL (14.2-18.0) 7.9 G/DL (14.2-18.0) Hematocrit 21.6 % (42.0-52.0) 25.0 % (42.0-52.0) Mean Corpuscular Volume 85 FL (80-99) 85 FL (80-99) Mean Corpuscular Hemoglobin 26.4 PG (27.0-31.0) 27.1 PG (27.0-31.0) Mean Corpuscular Hemoglobin Concent 31.2 G/DL (32.0-36.0) 31.8 G/DL (32.0-36.0) Red Cell Distribution Width 18.1 % (11.6-14.8) 16.9 % (11.6-14.8) Platelet Count 177 K/UL (150-450) 248 K/UL (150-450) Mean Platelet Volume 9.5 FL (6.5-10.1) 9.6 FL (6.5-10.1) Neutrophils (%) (Auto) % (45.0-75.0) % (45.0-75.0) Lymphocytes (%) (Auto) % (20.0-45.0) % (20.0-45.0) Monocytes (%) (Auto) % (1.0-10.0) % (1.0-10.0) Eosinophils (%) (Auto) % (0.0-3.0) % (0.0-3.0) Basophils (%) (Auto) % (0.0-2.0) % (0.0-2.0) Differential Total Cells Counted 100 100 Neutrophils % (Manual) 77 % (45-75) 71 % (45-75) Lymphocytes % (Manual) 9 % (20-45) 13 % (20-45) Monocytes % (Manual) 14 % (1-10) 4 % (1-10) Eosinophils % (Manual) 0 % (0-3) 0 % (0-3) Basophils % (Manual) 0 % (0-2) 0 % (0-2) Band Neutrophils 0 % (0-8) 9 % (0-8) Platelet Estimate Adequate Adequate Platelet Morphology Normal Normal Hypochromasia 4+ 1+ Anisocytosis 2+ 1+ Sodium Level 143 MMOL/L (136-145) 141 MMOL/L (136-145) Potassium Level 5.1 MMOL/L (3.5-5.1) 5.4 MMOL/L (3.5-5.1) Chloride Level 111 MMOL/L (98-107) 111 MMOL/L (98-107) Carbon Dioxide Level 26 MMOL/L (21-32) 26 MMOL/L (21-32) Anion Gap 7 mmol/L (5-15) 4 mmol/L (5-15) Blood Urea Nitrogen 42 mg/dL (7-18) 44 mg/dL (7-18) Creatinine 0.7 MG/DL (0.55-1.30) 0.7 MG/DL (0.55-1.30) Estimat Glomerular Filtration Rate mL/min (>60) mL/min (>60) Glucose Level 182 MG/DL (74-106) 139 MG/DL (74-106) Calcium Level 7.0 MG/DL (8.5-10.1) 7.2 MG/DL (8.5-10.1) Amikacin Level Trough 19.3 ug/mL (4.0-8.0) Vancomycin Level Trough 22.6 ug/mL (5.0-12.0) Random Amikacin Level 33.1 MG/L 22.9 MG/L Myelocytes % 3 % (0-0) Nucleated Red Blood Cells 2 /100 WBC Polychromasia 2+ Total Bilirubin 0.5 MG/DL (0.2-1.0) Aspartate Amino Transf (AST/SGOT) 24 U/L (15-37) Alanine Aminotransferase (ALT/SGPT) 18 U/L (12-78) Alkaline Phosphatase 281 U/L (46-116) Total Protein 4.8 G/DL (6.4-8.2) Albumin 0.7 G/DL (3.4-5.0) Globulin 4.1 g/dL Albumin/Globulin Ratio 0.2 (1.0-2.7) Laboratory Tests Test 03/10/19 22:35 Random Amikacin Level Pending Current Medications Medications (Trade) Dose Ordered Sig/Katie Route PRN Reason Start Time Stop Time Status Last Admin Dose Admin Acetaminophen (Tylenol) 650 mg Q4H PRN GT Mild Pain/Temp > 100.5 03/04/19 06:30 04/03/19 06:29 03/06/19 23:01 Amikacin Protocol (Amikacin pharmacy to dose) 1 ea DAILY PRN MISC Per rx protocol 03/09/19 16:30 04/08/19 16:29 Ascorbic Acid (Vitamin C) 250 mg EVERY 12 HOURS ORAL 03/06/19 21:00 04/02/19 17:59 03/11/19 09:10 Aspirin (ASA) 81 mg DAILY NG 03/06/19 09:00 04/05/19 08:59 03/11/19 09:10 Cefepime HCl 1 gm/ Dextrose 50 ml @ 100 mls/hr Q12H IVPB 03/07/19 23:00 03/14/19 22:59 03/11/19 11:55 Dextrose (Dextrose 50%) 25 ml Q30M PRN IV Hypoglycemia 03/01/19 12:30 03/31/19 12:29 03/04/19 18:50 Dextrose (Dextrose 50%) 50 ml Q30M PRN IV Hypoglycemia 03/01/19 12:30 03/31/19 12:29 03/08/19 17:07 Diltiazem HCl (Cardizem) 60 mg EVERY 6 HOURS GT 03/05/19 12:00 04/04/19 11:59 03/11/19 12:37 Insulin Aspart (NovoLOG) EVERY 6 HOURS SUBQ 03/04/19 18:00 03/31/19 16:29 03/09/19 06:00 Ipratropium [place] (Atrovent) 500 mcg Q6HRT HHN 03/06/19 19:00 03/11/19 18:59 03/11/19 12:20 Metronidazole 100 ml @ 100 mls/hr Q8HR IVPB 03/10/19 14:00 03/17/19 13:59 03/11/19 14:06 Micafungin Sodium 100 mg/Sodium Chloride 110 ml @ 110 mls/hr Q24H IVPB 03/10/19 15:00 03/17/19 14:59 03/11/19 15:19 Phosphorus (Phospha 250 Neutral) 250 mg EVERY 8 HOURS GT 03/06/19 14:00 04/01/19 08:59 03/11/19 14:06 Vancomycin HCl (Vanco rx to dose) 1 ea DAILY PRN MISC Per rx protocol 03/09/19 16:30 04/08/19 16:29 Vancomycin HCl 750 mg/Sodium Chloride 275 ml @ 183.333 mls/hr Q24H IVPB 03/09/19 17:00 03/14/19 16:59 03/10/19 17:53 Zinc Sulfate (Zinc Sulfate) 220 mg DAILY ORAL 03/04/19 09:00 03/14/19 08:59 03/11/19 09:10 Randal Pool MD Mar 11, 2019 16:56
[2019-03-11] MEDS: Vancomycin 750 MG in NS 275 ML IVPB SCH (17:44)
--- NOTE | 2019-03-11 18:00 | NUR ---
NURSE NOTES: Bed bath performed at this time. Patient vital signs stable. Will continue to monitor.
[2019-03-11 18:34] LABS: ALANINE AMINOTRANSFERASE 24 U/L (12-78); ALBUMIN 0.7 G/DL (3.4-5.0); ALBUMIN/GLOBULIN RATIO 0.2 (1.0-2.7); ALKALINE PHOSPHATASE 262 U/L (46-116); ANION GAP 7 mmol/L (5-15); ASPARTATE AMINO TRANSFERASE 23 U/L (15-37); BILIRUBIN,TOTAL 0.5 MG/DL (0.2-1.0); BLOOD UREA NITROGEN 43 mg/dL (7-18); CARBON DIOXIDE 25 MMOL/L (21-32); CHLORIDE 113 MMOL/L (98-107); CREATININE 0.7 MG/DL (0.55-1.30); POTASSIUM 5.4 MMOL/L (3.5-5.1); SODIUM 144 MMOL/L (136-145)
[2019-03-11 18:58] LABS: HEMATOCRIT 26.5 % (42.0-52.0); HEMOGLOBIN 7.6 G/DL (14.2-18.0); MEAN CORPUSCULAR VOLUME 90 FL (80-99); PLATELET COUNT 318 K/UL (150-450); RED BLOOD COUNT 2.94 M/UL (4.70-6.10); RED CELL DISTRIBUTION WIDTH 18.3 % (11.6-14.8)
--- NOTE | 2019-03-11 19:15 | NUR ---
HAND-OFF: Report given to NADINE Huffman. VS stable. Endorsed to follow up.
--- NOTE | 2019-03-11 19:20 | NUR ---
NURSE NOTES: Received report from Yasmin Juan RN, pt. in bed with eyes closed- obtunded, family at bedside (niece), pt. appears to be tolerating current vent settings well- AC12, TV500, Fio2 @28% and peep 5- no distress noted- chest noted rising up and down even and unlabored, bed in lowest position, call light within easy reach, bed alarm on, side rails up x's3 and safety brakes engaged, G tube running Glucerna 1.2 at 50cc/hr- no residual noted, Mcpherson intact and draining to gravity, Left EJ intact and patent- TKO, safety measures continue, will continue with plan of care.
[2019-03-11 20:00] VITALS: BP 139/72
[2019-03-11] MEDS ORDERED: Amikacin 750 MG in NS 110 ML IV SCH (21:00)
--- NOTE | 2019-03-11 21:00 | NUR ---
NURSE NOTES: wound care pictures taken- unable to upload as camera is not working -wound care assessment done.
--- NOTE | 2019-03-11 21:27 | Cardiology Progress Note ---
Assessment/Plan Assessment/Plan CARDIOLOGY COVERAGE FOR DR. DUNNE (1) Paroxysmal atrial fibrillation, now in SR, (2) Paroxysmal atrial flutter, not a candidate for RFA in view of DNR status. (3) Ventilator dependent (4) Altered level of consciousness (5) Sepsis, continue IV ABx therapy. Subjective Subjective Sinus rhythm at rate of 89. Objective Last 24 Hour Vital Signs Date Time Temp Pulse Resp B/P (MAP) Pulse Ox O2 Delivery O2 Flow Rate FiO2 03/11/19 19:15 89 14 28 03/11/19 17:44 94 132/59 03/11/19 17:21 92 03/11/19 16:59 88 16 28 03/11/19 16:00 97.0 92 18 132/59 (83) 100 03/11/19 16:00 28 03/11/19 16:00 Mechanical Ventilator 03/11/19 15:44 92 16 28 03/11/19 13:21 95 16 100 Mechanical Ventilator 40.0 28 98 14 28 03/11/19 12:37 97 196/75 03/11/19 12:07 90 18 100 Mechanical Ventilator 28 03/11/19 12:00 96.6 98 17 125/68 (87) 100 03/11/19 12:00 28 03/11/19 12:00 90 03/11/19 12:00 Mechanical Ventilator 03/11/19 11:00 100 16 28 03/11/19 09:25 97 14 28 03/11/19 08:00 89 03/11/19 08:00 96.4 96 17 120/89 (99) 100 03/11/19 08:00 Mechanical Ventilator 03/11/19 08:00 28 03/11/19 07:00 101 13 100 Mechanical Ventilator 40.0 28 98 13 28 03/11/19 06:00 97 100/68 03/11/19 05:46 91 12 28 03/11/19 04:00 95.7 80 14 131/64 (86) 100 03/11/19 04:00 85 03/11/19 04:00 Mechanical Ventilator 03/11/19 04:00 28 03/11/19 03:24 83 12 28 03/11/19 01:39 78 13 100 Mechanical Ventilator 28 79 12 28 03/11/19 00:00 Mechanical Ventilator 03/11/19 00:00 95.0 75 16 107/59 (75) 100 03/11/19 00:00 28 03/11/19 00:00 87 03/10/19 23:46 70 100/59 03/10/19 23:31 75 12 28 Intake and Output 03/10/19 03/11/19 19:00 07:00 Intake Total 100 ml 580 ml Output Total 350 ml 250 ml Balance -250 ml 330 ml Free Water 110 ml IV Total 100 ml 250 ml Tube Feeding 220 ml Output Urine Total 350 ml 250 ml # Bowel Movements 3 2 2D Echo: From Dec 2018: LVEF 60%, Mild MR, RVSP 16 mmHg, Nl LV diastolic fxn. Laboratory Tests Test 03/10/19 22:35 03/11/19 17:45 Random Amikacin Level 22.9 MG/L White Blood Count 35.0 K/UL (4.8-10.8) *H Red Blood Count 2.94 M/UL (4.70-6.10) L Hemoglobin 7.6 G/DL (14.2-18.0) L Hematocrit 26.5 % (42.0-52.0) L Mean Corpuscular Volume 90 FL (80-99) Mean Corpuscular Hemoglobin 25.7 PG (27.0-31.0) L Mean Corpuscular Hemoglobin Concent 28.5 G/DL (32.0-36.0) L Red Cell Distribution Width 18.3 % (11.6-14.8) H Platelet Count 318 K/UL (150-450) Mean Platelet Volume 10.1 FL (6.5-10.1) Neutrophils (%) (Auto) % (45.0-75.0) Lymphocytes (%) (Auto) % (20.0-45.0) Monocytes (%) (Auto) % (1.0-10.0) Eosinophils (%) (Auto) % (0.0-3.0) Basophils (%) (Auto) % (0.0-2.0) Differential Total Cells Counted 100 Neutrophils % (Manual) 78 % (45-75) H Lymphocytes % (Manual) 15 % (20-45) L Monocytes % (Manual) 3 % (1-10) Eosinophils % (Manual) 0 % (0-3) Basophils % (Manual) 0 % (0-2) Myelocytes % 2 % (0-0) H Band Neutrophils 4 % (0-8) Nucleated Red Blood Cells 2 /100 WBC Platelet Estimate Adequate Platelet Morphology Normal Polychromasia 2+ Hypochromasia 1+ Anisocytosis 1+ Sodium Level 144 MMOL/L (136-145) Potassium Level 5.4 MMOL/L (3.5-5.1) H Chloride Level 113 MMOL/L (98-107) H Carbon Dioxide Level 25 MMOL/L (21-32) Anion Gap 7 mmol/L (5-15) Blood Urea Nitrogen 43 mg/dL (7-18) H Creatinine 0.7 MG/DL (0.55-1.30) Estimat Glomerular Filtration Rate mL/min (>60) Glucose Level 122 MG/DL (74-106) H Calcium Level 7.0 MG/DL (8.5-10.1) L Total Bilirubin 0.5 MG/DL (0.2-1.0) Aspartate Amino Transf (AST/SGOT) 23 U/L (15-37) Alanine Aminotransferase (ALT/SGPT) 24 U/L (12-78) Alkaline Phosphatase 262 U/L (46-116) H Total Protein 4.1 G/DL (6.4-8.2) L Albumin 0.7 G/DL (3.4-5.0) L Globulin 3.4 g/dL Albumin/Globulin Ratio 0.2 (1.0-2.7) L Objective General Appearance: lethargic, on vent EENT: PERRL/EOMI Neck: no JVD - trach, other Rhythm: NSR Cardiovascular: regular rhythm, no gallop/murmur/rubs Respiratory/Chest: other - clear anteriorly Abdomen: non tender, soft, other - + g tube Extremities: severe edema - 3-4+ pitting edema of distal UE LE bilLuciano Roa MD Mar 11, 2019 21:27
[2019-03-12] VITALS: BP 110/51
[2019-03-12 04:00] VITALS: BP 97/57
--- NOTE | 2019-03-12 04:00 | NUR ---
NURSE NOTES: Received report from Nathanael RN, pt. obtunded. Tolerating current vent settings well- AC12, TV500, Fio2 @28% and peep 5 In no apparent distress. Respirations even and unlabored, bed in lowest position, call light within easy reach, bed alarm on, side rails up x's3 and bed alarm and brakes engaged, G tube running Glucerna 1.2 at 50cc/hr- no residual noted, Mcpherson intact and draining to gravity, Left EJ intact and patent- TKO, safety measures continue, will continue with plan of care.
--- NOTE | 2019-03-12 04:04 | NUR ---
HAND-OFF: Report given to Earlene Vargas, RN- pt. remains stable and no signs of distress noted.
[2019-03-12] MEDS: dilTIAZem HCl 60mg tab GT SCH ×3 (06:00→17:14)
[2019-03-12] MEDS: Phospha 250 Neutral tab GT SCH (06:32)
[2019-03-12] MEDS: NovoLOG Insulin Flexpen SUBQ SCH ×3 (06:45→17:08)
--- NOTE | 2019-03-12 07:00 | NUR ---
HAND-OFF: Report given to Susana Kerr RN.
--- NOTE | 2019-03-12 07:32 | NUR ---
NURSE NOTES: received patient report from yonathan sam. patient is on bed asleep. on vent at prescribed rate. tube feeding running. nsr on the monitor. wound care per protocol. will follow plan of care.
[2019-03-12 08:00] VITALS: BP 122/55
[2019-03-12] MEDS: Aspirin Baby 81mg NG SCH (09:15)
[2019-03-12] MEDS: Zinc Sulfate 220mg cap ORAL SCH (09:16)
[2019-03-12] MEDS: Ascorbic Acid 500mg tab ORAL SCH ×2 (09:16→21:26)
[2019-03-12] MEDS ORDERED: Tubing IV Secondary IV ONE (10:10)
[2019-03-12] MEDS ORDERED: NS 275ml ONE (10:10)
--- NOTE | 2019-03-12 10:12 | Pulmonology Progress Note ---
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 SEPSIS: PsA UTI and sepsis 2. Lactic acidosis - RESOLVED 3. Tracheostomy status. 4. Dysphagia, status post G-tube. 5. Encephalopathy. 6. Multiple decubitus ulcer. 7. Glaucoma. 8. Hypertension, CAD, CHF with diastolic dysfunction. 9. DNAR. 10. Wound - surgery following TREATMENT PLAN: 1. Ventilatory support, settings reviewed. 2. Titrate O2. 3. Atrovent HHN's 4. Abx per ID 5. Monitor volumes and renal function, D/C IVF 6. Wound care 7. TF's 8. D/C Heparin subcutaneous given worsening anemia. 9. Transfuse PRBC 10. DNAR, continue to discuss goals of care, consider transition back to SNF with hospice - ongoing discussions with niece 11. Surgery followig for wound Subjective Allergies: Coded Allergies: DORZOLAMIDE (Unverified Allergy, Unknown, 12/23/18) LISINOPRIL (Unverified Allergy, Unknown, 12/23/18) TIMOLOL (Unverified Allergy, Unknown, 12/23/18) TIOTROPIUM (Unverified Allergy, Unknown, 12/23/18) Subjective WCt [address] noted AFVSS O2 needs stable on vent No sig secretions Objective Vital Signs Noted General Appearance: cachetic HEENT: status post trach Respiratory/Chest: crackles/rales, rhonchi Cardiovascular: normal peripheral pulses, normal rate, regular rhythm Abdomen: normal bowel sounds, soft, non tender, no organomegaly, non distended , no mass, other - GT Extremities: no cyanosis, no clubbing, no edema Microbiology Date/Time Source Procedure Growth Status 03/07/19 22:30 External Cath Urine Culture - Preliminary Yeast Species Resulted Laboratory Tests 03/09/19 03:50: White Blood Count 32.5*H, Red Blood Count 2.56L, Hemoglobin 6.8*L, Hematocrit 21.6L, Mean Corpuscular Volume 85, Mean Corpuscular Hemoglobin 26.4L, Mean Corpuscular Hemoglobin Concent 31.2L, Red Cell Distribution Width 18.1H, Platelet Count 177, Mean Platelet Volume 9.5, Neutrophils (%) (Auto) , Lymphocytes (%) (Auto) , Monocytes (%) (Auto) , Eosinophils (%) (Auto) , Basophils (%) (Auto) , Differential Total Cells Counted 100, Neutrophils % ( Manual) 77H, Lymphocytes % (Manual) 9L, Monocytes % (Manual) 14H, Eosinophils % (Manual) 0, Basophils % (Manual) 0, Band Neutrophils 0, Platelet Estimate Adequate, Platelet Morphology Normal, Hypochromasia 4+, Anisocytosis 2+, Sodium Level 143, Potassium Level 5.1, Chloride Level 111H, Carbon Dioxide Level 26, Anion Gap 7, Blood Urea Nitrogen 42H, Creatinine 0.7, Estimat Glomerular Filtration Rate , Glucose Level 182H, Calcium Level 7.0L, Amikacin Level Trough 19.3H, Vancomycin Level Trough 22.6H 03/09/19 19:45: Random Amikacin Level [Pending] Current Medications Medications (Trade) Dose Ordered Sig/Katie Route PRN Reason Start Time Stop Time Status Last Admin Dose Admin Acetaminophen (Tylenol) 650 mg Q4H PRN GT Mild Pain/Temp > 100.5 03/04/19 06:30 04/03/19 06:29 03/06/19 23:01 Amikacin Protocol (Amikacin pharmacy to dose) 1 ea DAILY PRN MISC Per rx protocol 03/09/19 16:30 04/08/19 16:29 Amikacin Sulfate 1000 mg/Sodium Chloride 114 ml @ 114 mls/hr Q36H IV 03/10/19 20:00 03/19/19 19:59 Ascorbic Acid (Vitamin C) 250 mg EVERY 12 HOURS ORAL 03/06/19 21:00 04/02/19 17:59 03/09/19 09:44 Aspirin (ASA) 81 mg DAILY NG 03/06/19 09:00 04/05/19 08:59 03/09/19 09:44 Cefepime HCl 1 gm/ Dextrose 50 ml @ 100 mls/hr Q12H IVPB 03/07/19 23:00 03/14/19 22:59 03/09/19 13:41 Dextrose (Dextrose 50%) 25 ml Q30M PRN IV Hypoglycemia 03/01/19 12:30 03/31/19 12:29 03/04/19 18:50 Dextrose (Dextrose 50%) 50 ml Q30M PRN IV Hypoglycemia 03/01/19 12:30 03/31/19 12:29 03/08/19 17:07 Diltiazem HCl (Cardizem) 60 mg EVERY 6 HOURS GT 03/05/19 12:00 04/04/19 11:59 03/09/19 13:50 Fluconazole/ Sodium Chloride 100 ml @ 100 mls/hr Q24H IV 03/09/19 20:00 03/16/19 19:59 03/09/19 19:37 Heparin Sodium (Porcine) (Heparin 5000 units/ml) 5,000 units EVERY 12 HOURS SUBQ 03/01/19 21:00 03/31/19 20:59 03/09/19 09:46 Insulin Aspart (NovoLOG) EVERY 6 HOURS SUBQ 03/04/19 18:00 03/31/19 16:29 03/09/19 06:00 Ipratropium Kingsley (Atrovent) 500 mcg Q4H PRN HHN Shortness of Breath 03/06/19 14:30 03/11/19 14:29 Ipratropium Kingsley (Atrovent) 500 mcg Q6HRT HHN 03/06/19 19:00 03/11/19 18:59 03/09/19 19:30 Metronidazole (Flagyl) 500 mg EVERY 8 HOURS ORAL 03/09/19 22:00 03/16/19 21:59 Phosphorus (Phospha 250 Neutral) 250 mg EVERY 8 HOURS GT 03/06/19 14:00 04/01/19 08:59 03/09/19 13:51 Sodium Chloride 1,000 ml @ 125 mls/hr Q8H IV 03/06/19 18:15 04/05/19 18:14 03/09/19 18:20 Vancomycin HCl (Vanco rx to dose) 1 ea DAILY PRN MISC Per rx protocol 03/09/19 16:30 04/08/19 16:29 Vancomycin HCl 750 mg/Sodium Chloride 275 ml @ 183.333 mls/hr Q24H IVPB 03/09/19 17:00 03/14/19 16:59 03/09/19 18:35 Zinc Sulfate (Zinc Sulfate) 220 mg DAILY ORAL 03/04/19 09:00 03/14/19 08:59 1/30/20 09:44 Subjective ROS Limited/Unobtainable: No Allergies: Coded Allergies: DORZOLAMIDE (Unverified Allergy, Unknown, 12/23/18) LISINOPRIL (Unverified Allergy, Unknown, 12/23/18) TIMOLOL (Unverified Allergy, Unknown, 12/23/18) TIOTROPIUM (Unverified Allergy, Unknown, 12/23/18) Objective Last 24 Hour Vital Signs Date Time Temp Pulse Resp B/P (MAP) Pulse Ox O2 Delivery O2 Flow Rate FiO2 03/12/19 07:10 105 14 28 03/12/19 06:00 97 97/57 03/12/19 05:04 97 16 28 03/12/19 04:00 28 03/12/19 04:00 105 03/12/19 04:00 Mechanical Ventilator 03/12/19 04:00 97.3 105 15 97/57 (70) 100 03/12/19 02:33 101 13 28 03/12/19 00:31 82 14 28 03/12/19 00:00 96.8 97 15 110/51 (70) 100 03/12/19 00:00 Mechanical Ventilator 03/12/19 00:00 28 03/11/19 23:40 107 03/11/19 23:05 72 100/75 03/11/19 22:40 94 15 28 03/11/19 21:10 91 15 28 03/11/19 20:00 28 03/11/19 20:00 96.9 91 15 139/72 (94) 100 03/11/19 20:00 Mechanical Ventilator 03/11/19 19:47 89 03/11/19 19:15 89 14 28 03/11/19 17:44 94 132/59 03/11/19 17:21 92 03/11/19 16:59 88 16 28 03/11/19 16:00 97.0 92 18 132/59 (83) 100 03/11/19 16:00 28 03/11/19 16:00 Mechanical Ventilator 03/11/19 15:44 92 16 28 03/11/19 13:21 95 16 100 Mechanical Ventilator 40.0 28 98 14 28 03/11/19 12:37 97 196/75 03/11/19 12:07 90 18 100 Mechanical Ventilator 28 03/11/19 12:00 96.6 98 17 125/68 (87) 100 03/11/19 12:00 28 03/11/19 12:00 90 03/11/19 12:00 Mechanical Ventilator 03/11/19 11:00 100 16 28 Intake and Output 03/11/19 03/12/19 19:00 07:00 Intake Total 1073.333 ml 1054.667 ml Output Total 300 ml 200 ml Balance 773.333 ml 854.667 ml Free Water 50 ml 100 ml IV Total 443.333 ml 404.667 ml Tube Feeding 580 ml 550 ml Output Urine Total 300 ml 200 ml Laboratory Tests 03/11/19 17:45: White Blood Count 35.0*H, Red Blood Count 2.94L, Hemoglobin 7.6L, Hematocrit 26.5L, Mean Corpuscular Volume 90, Mean Corpuscular Hemoglobin 25.7L, Mean Corpuscular Hemoglobin Concent 28.5L, Red Cell Distribution Width 18.3H, Platelet Count 318, Mean Platelet Volume 10.1, Neutrophils (%) (Auto) , Lymphocytes (%) (Auto) , Monocytes (%) (Auto) , Eosinophils (%) (Auto) , Basophils (%) (Auto) , Differential Total Cells Counted 100, Neutrophils % ( Manual) 78H, Lymphocytes % (Manual) 15L, Monocytes % (Manual) 3, Eosinophils % ( Manual) 0, Basophils % (Manual) 0, Myelocytes % 2H, Band Neutrophils 4, Nucleated Red Blood Cells 2, Platelet Estimate Adequate, Platelet Morphology Normal, Polychromasia 2+, Hypochromasia 1+, Anisocytosis 1+, Sodium Level 144, Potassium Level 5.4H, Chloride Level 113H, Carbon Dioxide Level 25, Anion Gap 7 , Blood Urea Nitrogen 43H, Creatinine 0.7, Estimat Glomerular Filtration Rate , Glucose Level 122H, Calcium Level 7.0L, Total Bilirubin 0.5, Aspartate Amino Transf (AST/SGOT) 23, Alanine Aminotransferase (ALT/SGPT) 24, Alkaline Phosphatase 262H, Total Protein 4.1L, Albumin 0.7L, Globulin 3.4, Albumin/ Globulin Ratio 0.2L 03/12/19 08:00: Random Amikacin Level [Pending] Current Medications Medications (Trade) Dose Ordered Sig/Katie Route PRN Reason Start Time Stop Time Status Last Admin Dose Admin Acetaminophen (Tylenol) 650 mg Q4H PRN GT Mild Pain/Temp > 100.5 03/04/19 06:30 04/03/19 06:29 03/06/19 23:01 Amikacin Protocol (Amikacin pharmacy to dose) 1 ea DAILY PRN MISC Per rx protocol 03/09/19 16:30 04/08/19 16:29 Amikacin Sulfate 750 mg/Sodium Chloride 113 ml @ 113 mls/hr Q36H IV 03/11/19 21:00 03/18/19 20:59 03/11/19 21:04 Ascorbic Acid (Vitamin C) 250 mg EVERY 12 HOURS ORAL 03/06/19 21:00 04/02/19 17:59 03/12/19 09:16 Aspirin (ASA) 81 mg DAILY NG 03/06/19 09:00 04/05/19 08:59 03/12/19 09:15 Cefepime HCl 1 gm/ Dextrose 50 ml @ 100 mls/hr Q12H IVPB 03/07/19 23:00 03/14/19 22:59 03/11/19 22:59 Dextrose (Dextrose 50%) 25 ml Q30M PRN IV Hypoglycemia 03/01/19 12:30 03/31/19 12:29 03/04/19 18:50 Dextrose (Dextrose 50%) 50 ml Q30M PRN IV Hypoglycemia 03/01/19 12:30 03/31/19 12:29 03/08/19 17:07 Diltiazem HCl (Cardizem) 60 mg EVERY 6 HOURS GT 03/05/19 12:00 04/04/19 11:59 03/11/19 17:44 Insulin Aspart (NovoLOG) EVERY 6 HOURS SUBQ 03/04/19 18:00 03/31/19 16:29 03/09/19 06:00 Metronidazole 100 ml @ 100 mls/hr Q8HR IVPB 03/10/19 14:00 03/17/19 13:59 03/12/19 06:31 Micafungin Sodium 100 mg/Sodium Chloride 110 ml @ 110 mls/hr Q24H IVPB 03/10/19 15:00 03/17/19 14:59 03/11/19 15:19 Phosphorus (Phospha 250 Neutral) 250 mg EVERY 8 HOURS GT 03/06/19 14:00 04/01/19 08:59 03/12/19 06:32 Vancomycin HCl (Vanco rx to dose) 1 ea DAILY PRN MISC Per rx protocol 03/09/19 16:30 04/08/19 16:29 Vancomycin HCl 750 mg/Sodium Chloride 275 ml @ 183.333 mls/hr Q24H IVPB 03/09/19 17:00 03/14/19 16:59 03/11/19 17:44 Zinc Sulfate (Zinc Sulfate) 220 mg DAILY ORAL 03/04/19 09:00 03/14/19 08:59 03/12/19 09:16 Cody Caba MD Mar 12, 2019 10:12
--- NOTE | 2019-03-12 11:15 | Surgery Progress Note ---
Surgery Progress Note Subjective Additional Comments labs noted ill appearing no /v/f/c Objective Last 24 Hour Vital Signs Date Time Temp Pulse Resp B/P (MAP) Pulse Ox O2 Delivery O2 Flow Rate FiO2 03/12/19 09:16 126 13 28 03/12/19 08:00 98.8 106 14 122/55 (77) 100 03/12/19 08:00 105 03/12/19 08:00 Mechanical Ventilator 03/12/19 08:00 28 03/12/19 07:10 105 14 28 03/12/19 06:00 97 97/57 03/12/19 05:04 97 16 28 03/12/19 04:00 28 03/12/19 04:00 105 03/12/19 04:00 Mechanical Ventilator 03/12/19 04:00 97.3 105 15 97/57 (70) 100 03/12/19 02:33 101 13 28 03/12/19 00:31 82 14 28 03/12/19 00:00 96.8 97 15 110/51 (70) 100 03/12/19 00:00 Mechanical Ventilator 03/12/19 00:00 28 03/11/19 23:40 107 03/11/19 23:05 72 100/75 03/11/19 22:40 94 15 28 03/11/19 21:10 91 15 28 03/11/19 20:00 28 03/11/19 20:00 96.9 91 15 139/72 (94) 100 03/11/19 20:00 Mechanical Ventilator 03/11/19 19:47 89 03/11/19 19:15 89 14 28 03/11/19 17:44 94 132/59 03/11/19 17:21 92 03/11/19 16:59 88 16 28 03/11/19 16:00 97.0 92 18 132/59 (83) 100 03/11/19 16:00 28 03/11/19 16:00 Mechanical Ventilator 03/11/19 15:44 92 16 28 03/11/19 13:21 95 16 100 Mechanical Ventilator 40.0 28 98 14 28 03/11/19 12:37 97 196/75 03/11/19 12:07 90 18 100 Mechanical Ventilator 28 03/11/19 12:00 96.6 98 17 125/68 (87) 100 03/11/19 12:00 28 03/11/19 12:00 90 03/11/19 12:00 Mechanical Ventilator I&O Intake and Output 03/11/19 03/12/19 19:00 07:00 Intake Total 1073.333 ml 1054.667 ml Output Total 300 ml 200 ml Balance 773.333 ml 854.667 ml Free Water 50 ml 100 ml IV Total 443.333 ml 404.667 ml Tube Feeding 580 ml 550 ml Output Urine Total 300 ml 200 ml Dressing: saturated Wound: clean Cardiovascular: RSR Respiratory: clear Abdomen: soft, non-tender, present bowel sounds Extremities: no edema, no tenderness Laboratory Tests Test 03/11/19 17:45 03/12/19 08:00 White Blood Count 35.0 K/UL (4.8-10.8) *H Red Blood Count 2.94 M/UL (4.70-6.10) L Hemoglobin 7.6 G/DL (14.2-18.0) L Hematocrit 26.5 % (42.0-52.0) L Mean Corpuscular Volume 90 FL (80-99) Mean Corpuscular Hemoglobin 25.7 PG (27.0-31.0) L Mean Corpuscular Hemoglobin Concent 28.5 G/DL (32.0-36.0) L Red Cell Distribution Width 18.3 % (11.6-14.8) H Platelet Count 318 K/UL (150-450) Mean Platelet Volume 10.1 FL (6.5-10.1) Neutrophils (%) (Auto) % (45.0-75.0) Lymphocytes (%) (Auto) % (20.0-45.0) Monocytes (%) (Auto) % (1.0-10.0) Eosinophils (%) (Auto) % (0.0-3.0) Basophils (%) (Auto) % (0.0-2.0) Differential Total Cells Counted 100 Neutrophils % (Manual) 78 % (45-75) H Lymphocytes % (Manual) 15 % (20-45) L Monocytes % (Manual) 3 % (1-10) Eosinophils % (Manual) 0 % (0-3) Basophils % (Manual) 0 % (0-2) Myelocytes % 2 % (0-0) H Band Neutrophils 4 % (0-8) Nucleated Red Blood Cells 2 /100 WBC Platelet Estimate Adequate Platelet Morphology Normal Polychromasia 2+ Hypochromasia 1+ Anisocytosis 1+ Sodium Level 144 MMOL/L (136-145) Potassium Level 5.4 MMOL/L (3.5-5.1) H Chloride Level 113 MMOL/L (98-107) H Carbon Dioxide Level 25 MMOL/L (21-32) Anion Gap 7 mmol/L (5-15) Blood Urea Nitrogen 43 mg/dL (7-18) H Creatinine 0.7 MG/DL (0.55-1.30) Estimat Glomerular Filtration Rate mL/min (>60) Glucose Level 122 MG/DL (74-106) H Calcium Level 7.0 MG/DL (8.5-10.1) L Total Bilirubin 0.5 MG/DL (0.2-1.0) Aspartate Amino Transf (AST/SGOT) 23 U/L (15-37) Alanine Aminotransferase (ALT/SGPT) 24 U/L (12-78) Alkaline Phosphatase 262 U/L (46-116) H Total Protein 4.1 G/DL (6.4-8.2) L Albumin 0.7 G/DL (3.4-5.0) L Globulin 3.4 g/dL Albumin/Globulin Ratio 0.2 (1.0-2.7) L Random Amikacin Level Pending Plan Problems: (1) Malnutrition Assessment & Plan: DAILY ESTIMATED NEEDS: Needs based on Advanced wounds, Underweight, CRITICAL CARE/ 49.5kg 25-35 kcals/kg 7890-7323 total kcals 1.5-2.0 g protein/kg 74-99 g total protein 25-30 mL/kg 0299-1887 total fluid mLs NUTRITION DIAGNOSIS: (1) Increased kcal/prot needs R/T wound healing, sepsis as evidenced by pt w/ advanced wounds, 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 (2) Swallowing difficulty R/T respiratory status as evidenced trach/vent dep and PEG dep (3) Altered GI function R/T pneumatosis, GIB as evidenced by admitted w/ c/o coffee ground emesis, TF initiated at low rate, now @ goal. CURRENT TF:Glucerna 1.5 @50ml/hr x20 hrs ENTERAL NUTRITION RECOMMENDATIONS: Glucerna 1.5 @ 50ml/hr x 20 hrs to provide 1000ml, 1500 kcal, 82.3g pro, 759ml free H2O -> Maintain current TF to meet 100% est needs -> HOB over 30 degrees/ water flush per MD ADDITIONAL RECOMMENDATIONS: * Per SNF: HT=67", FP=[id number] (as of 12/21) Per Dec SNF record -> bm=[id number], pt edematous, wt trending up Rec to RECALIBRATE bed scale for accurate CBW . 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 Altered mental status Continued malnutrition failure to thrive in adult Decubitus skin ulcers Patient evaluated full physical examination completed wounds unlikely etiology of patient's sepsis Micro noted Chest x-ray reviewed Trach in place on support Care plan initiated Discussed with PCP and consultants recommend SNF with hospice Patients condition continue to deteriorate Thank you for let me participation's care will continue to follow with recommendations Sher Keene Mar 12, 2019 11:15
[2019-03-12 12:00] VITALS: BP 119/53
--- NOTE | 2019-03-12 12:59 | Infectious Diseases Prog Note ---
Assessment/Plan Assessment/Plan ASSESSMENT/PLAN; 1. sepsis, pseudomonas bacteremia, gram neg sepsis, pseudomonas uti/pna, sirs, leukocytosis, multiple wounds, ? osteo on CT aruna fungemia and uti - vancomycin, cefepime, amikacin, flagyl - day # 12 abx - day # 3 micafungin for fungemia and uti - monitor labs and chest x-ray, CT noted and no abscess - wound care per surgery and protocol, debridement if indicated, surgery f/u - poor prognosis 2. trach, vent and respiratory failure. 3. Dysphagia, G-tube. 4. Wound care protocol. 5. History of decubitus. 6. hypercapnia 7. Blood pressure treatment per primary care team. 8. Depression. 9. Diastolic heart failure. 10. Coronary artery disease. 11. GERD. 12. Glaucoma. 13. GI bleed. 14. Osteoarthritis. 15. BPH. 16. Malnutrition. 17. Allergies to dorzolamide, lisinopril, timolol, tiotropium, Spiriva. 18. Family history is noncontributory. 19. Social history is negative. 20. MAR was noted. 21. Case was discussed with RN. 22. ICU care. 23. Continue treatment per primary consultants. 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 Subjective Constitutional: Reports: other - + trach and vent ; Denies: fever HEENT: Reports: congestion Respiratory: Reports: shortness of breath Cardiovascular: Denies: chest pain Gastrointestinal/Abdominal: Denies: nausea, vomiting, diarrhea Genitourinary: Reports: other - + kline Neurologic: Denies: headache Psychiatric: Denies: depression Skin: Denies: rash Hematologic: Denies: bleeding Musculoskeletal: Denies: pain Allergies: Coded Allergies: DORZOLAMIDE (Unverified Allergy, Unknown, 12/23/18) LISINOPRIL (Unverified Allergy, Unknown, 12/23/18) TIMOLOL (Unverified Allergy, Unknown, 12/23/18) TIOTROPIUM (Unverified Allergy, Unknown, 12/23/18) Objective Vital Signs Last 24 Hour Vital Signs Date Time Temp Pulse Resp B/P (MAP) Pulse Ox O2 Delivery O2 Flow Rate FiO2 03/12/19 12:00 28 03/12/19 12:00 Mechanical Ventilator 03/12/19 11:17 126 122/55 03/12/19 11:13 104 17 28 2/2/20 09:16 126 13 28 03/12/19 08:00 98.8 106 14 122/55 (77) 100 03/12/19 08:00 105 03/12/19 08:00 Mechanical Ventilator 03/12/19 08:00 28 03/12/19 07:10 105 14 28 03/12/19 06:00 97 97/57 03/12/19 05:04 97 16 28 03/12/19 04:00 28 03/12/19 04:00 105 03/12/19 04:00 Mechanical Ventilator 03/12/19 04:00 97.3 105 15 97/57 (70) 100 03/12/19 02:33 101 13 28 03/12/19 00:31 82 14 28 03/12/19 00:00 96.8 97 15 110/51 (70) 100 03/12/19 00:00 Mechanical Ventilator 03/12/19 00:00 28 03/11/19 23:40 107 03/11/19 23:05 72 100/75 03/11/19 22:40 94 15 28 03/11/19 21:10 91 15 28 03/11/19 20:00 28 03/11/19 20:00 96.9 91 15 139/72 (94) 100 03/11/19 20:00 Mechanical Ventilator 03/11/19 19:47 89 03/11/19 19:15 89 14 28 03/11/19 17:44 94 132/59 03/11/19 17:21 92 03/11/19 16:59 88 16 28 03/11/19 16:00 97.0 92 18 132/59 (83) 100 03/11/19 16:00 28 03/11/19 16:00 Mechanical Ventilator 03/11/19 15:44 92 16 28 03/11/19 13:21 95 16 100 Mechanical Ventilator 40.0 28 98 14 28 Height (Feet): 5 Height (Inches): 7.00 Weight (Pounds): 153 General Appearance: other - + trach and vent HEENT: normocephalic, atraumatic, anicteric, no JVD, status post trach Respiratory/Chest: crackles/rales, rhonchi - bilaterally Cardiovascular: normal rate, regular rhythm, no gallop/murmur Abdomen: normal bowel sounds, soft, non tender, no organomegaly, non distended Genitourinary: other - + kline - urine Extremities: other - wounds covered Skin: no rash Neurologic/Psychiatric: motor weakness, other - lethargic Lymphatic: no neck adenopathy Musculoskeletal: no effusion Objective 03/01/19 - chest x-ray - Procedure: XRAY Chest 1v Indication: Dyspnea Comparison: 03/01/2019 at 02:53 A single view chest radiograph was obtained. Findings: 15:20 Lungs are hyperexpanded. 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 This is probably chronic and due to pleural thickening as the configuration has not changed over several days. Heart size appears stable. Tracheostomy is again noted. Pulmonary vascularity appears mildly prominent as it did previously. IMPRESSION: No significant change from the earlier film 03/03/19 - chest x-ray - Procedure: XRAY Chest 1v Indication: Shortness of breath Technique: One view of the chest Comparison: 03/01/2019 Findings: There is increasing hazy parenchymal consolidation at both lung bases. There are again demonstrated bilateral pleural effusions, appearing stable on the left and likely slightly increased on the right. Tracheostomy remains. The heart size is normal Impression: Increasing bilateral basilar hazy infiltrates and increasing right pleural fluid, over one day. Other stable findings as noted Chest x-ray - 03/06/19 - IMPRESSION: COPD. CHF with bilateral pleural effusions suspected. No significant change from the last exam 03/09/19 - chest x-ray - Procedure: XRAY Chest 1v Indication: Dyspnea Technique: One view of the chest Comparison: 03/06/2019 Findings: There is bilateral interstitial and airspace edema again noted. There are bilateral pleural effusions again noted. There is a tracheostomy in good position. The heart size is normal. There is no significant interim change Impression: Unchanged, over 3 days, findings as above. CT abdomen and pelvis: Impression: Extensive and progressive decubitus ulceration in the retrococcygeal region, with equivocally progressive destructive changes of the proximal coccyx Evidence of anasarca, with large bilateral pleural effusions, small to moderate ascites, diffuse soft tissue edema, marked scrotal wall edema and likely bilateral hydroceles Left inguinal hernia containing a sizable loop of small bowel. Associated herniation of ascites into the hernia sac. No evidence of obstruction or strangulation Interim resolution of previously demonstrated, in retrospect, gastric wall pneumatosis. Gastrostomy in good position. Cholelithiasis, also previously reported Compressive atelectasis of much of both pulmonary lower lobes due to the pleural fluid Chest x-ray - 03/11/19 - IMPRESSION: No significant interval change from the prior chest x-ray. Mild pulmonary vascular congestion with persistent small bilateral layering pleural effusions. Subsegmental atelectasis versus infiltrates in bilateral lung bases. Microbiology Date/Time Source Procedure Growth Status 03/08/19 06:41 Blood Blood Culture - Preliminary NO GROWTH AFTER 72 HOURS Resulted 03/01/19 07:33 Sputum Gram Stain - Final Complete 03/01/19 07:33 Sputum Culture - Final Pseudomonas Aeruginosa Complete 03/07/19 22:30 External Cath Urine Culture - Final Aruna Parapsilosis Complete 03/01/19 04:17 Rectum - Final NO CARBAPENEM-RESISTANT ENTEROBACTERI... Complete Laboratory Tests Test 03/11/19 17:45 03/12/19 08:00 White Blood Count 35.0 K/UL (4.8-10.8) *H Red Blood Count 2.94 M/UL (4.70-6.10) L Hemoglobin 7.6 G/DL (14.2-18.0) L Hematocrit 26.5 % (42.0-52.0) L Mean Corpuscular Volume 90 FL (80-99) Mean Corpuscular Hemoglobin 25.7 PG (27.0-31.0) L Mean Corpuscular Hemoglobin Concent 28.5 G/DL (32.0-36.0) L Red Cell Distribution Width 18.3 % (11.6-14.8) H Platelet Count 318 K/UL (150-450) Mean Platelet Volume 10.1 FL (6.5-10.1) Neutrophils (%) (Auto) % (45.0-75.0) Lymphocytes (%) (Auto) % (20.0-45.0) Monocytes (%) (Auto) % (1.0-10.0) Eosinophils (%) (Auto) % (0.0-3.0) Basophils (%) (Auto) % (0.0-2.0) Differential Total Cells Counted 100 Neutrophils % (Manual) 78 % (45-75) H Lymphocytes % (Manual) 15 % (20-45) L Monocytes % (Manual) 3 % (1-10) Eosinophils % (Manual) 0 % (0-3) Basophils % (Manual) 0 % (0-2) Myelocytes % 2 % (0-0) H Band Neutrophils 4 % (0-8) Nucleated Red Blood Cells 2 /100 WBC Platelet Estimate Adequate Platelet Morphology Normal Polychromasia 2+ Hypochromasia 1+ Anisocytosis 1+ Sodium Level 144 MMOL/L (136-145) Potassium Level 5.4 MMOL/L (3.5-5.1) H Chloride Level 113 MMOL/L (98-107) H Carbon Dioxide Level 25 MMOL/L (21-32) Anion Gap 7 mmol/L (5-15) Blood Urea Nitrogen 43 mg/dL (7-18) H Creatinine 0.7 MG/DL (0.55-1.30) Estimat Glomerular Filtration Rate mL/min (>60) Glucose Level 122 MG/DL (74-106) H Calcium Level 7.0 MG/DL (8.5-10.1) L Total Bilirubin 0.5 MG/DL (0.2-1.0) Aspartate Amino Transf (AST/SGOT) 23 U/L (15-37) Alanine Aminotransferase (ALT/SGPT) 24 U/L (12-78) Alkaline Phosphatase 262 U/L (46-116) H Total Protein 4.1 G/DL (6.4-8.2) L Albumin 0.7 G/DL (3.4-5.0) L Globulin 3.4 g/dL Albumin/Globulin Ratio 0.2 (1.0-2.7) L Random Amikacin Level Pending Current Medications Medications (Trade) Dose Ordered Sig/Katie Route PRN Reason Start Time Stop Time Status Last Admin Dose Admin Acetaminophen (Tylenol) 650 mg Q4H PRN GT Mild Pain/Temp > 100.5 03/04/19 06:30 04/03/19 06:29 03/06/19 23:01 Amikacin Protocol (Amikacin pharmacy to dose) 1 ea DAILY PRN MISC Per rx protocol 03/09/19 16:30 04/08/19 16:29 Amikacin Sulfate 750 mg/Sodium Chloride 113 ml @ 113 mls/hr Q36H IV 03/11/19 21:00 03/18/19 20:59 03/11/19 21:04 Ascorbic Acid (Vitamin C) 250 mg EVERY 12 HOURS ORAL 03/06/19 21:00 04/02/19 17:59 03/12/19 09:16 Aspirin (ASA) 81 mg DAILY NG 03/06/19 09:00 04/05/19 08:59 03/12/19 09:15 Cefepime HCl 1 gm/ Dextrose 50 ml @ 100 mls/hr Q12H IVPB 03/07/19 23:00 03/14/19 22:59 03/12/19 11:16 Dextrose (Dextrose 50%) 25 ml Q30M PRN IV Hypoglycemia 03/01/19 12:30 03/31/19 12:29 03/04/19 18:50 Dextrose (Dextrose 50%) 50 ml Q30M PRN IV Hypoglycemia 03/01/19 12:30 03/31/19 12:29 03/08/19 17:07 Diltiazem HCl (Cardizem) 60 mg EVERY 6 HOURS GT 03/05/19 12:00 04/04/19 11:59 03/12/19 11:17 Insulin Aspart (NovoLOG) EVERY 6 HOURS SUBQ 03/04/19 18:00 03/31/19 16:29 03/09/19 06:00 Metronidazole 100 ml @ 100 mls/hr Q8HR IVPB 03/10/19 14:00 03/17/19 13:59 03/12/19 06:31 Micafungin Sodium 100 mg/Sodium Chloride 110 ml @ 110 mls/hr Q24H IVPB 03/10/19 15:00 03/17/19 14:59 03/11/19 15:19 Vancomycin HCl (Vanco rx to dose) 1 ea DAILY PRN MISC Per rx protocol 03/09/19 16:30 04/08/19 16:29 Vancomycin HCl 750 mg/Sodium Chloride 275 ml @ 183.333 mls/hr Q24H IVPB 03/09/19 17:00 03/14/19 16:59 03/11/19 17:44 Zinc Sulfate (Zinc Sulfate) 220 mg DAILY ORAL 03/04/19 09:00 03/14/19 08:59 03/12/19 09:16 Randal Pool MD Mar 12, 2019 12:59
[2019-03-12] MEDS: Micafungin 100 MG in NS 110 ML IVPB SCH (15:01)
[2019-03-12 16:00] VITALS: BP 156/62
[2019-03-12] MEDS ORDERED: Vancomycin 750 MG in NS 275 ML IVPB SCH (17:00)
--- NOTE | 2019-03-12 19:20 | NUR ---
NURSE NOTES: received pt from NADINE Meza. pt is observed in bed, obtunded, unable to make needs known. no s/sx of pain noted at this time. trach to vent settings are as follows: Shiley: 8, AC: 12, TV: 500, FiO2: 28%, PEEP: 5. tolerating well, saturating well, no s/sx of respiratory distress noted. no acute cardiac distress noted at this time. G-tube site is patent and intact, running Glucerna 1.2 at 50 cc/hr. HOB elevated, no residual noted. F/C is patent and intact, draining blanca urine to gravity. skin alterations noted. LEJ 18 g patent and intact, asymptomatic. bed in lowest position and locked, siderails up X3, call light within reach. will continue to monitor.
--- NOTE | 2019-03-12 19:30 | NUR ---
NURSE NOTES: report given to deep sam
[2019-03-12 20:00] VITALS: BP 107/56
--- NOTE | 2019-03-12 20:15 | NUR ---
NURSE NOTES: upon head to toe assessment, noted open blister on left anterior foot.
--- NOTE | 2019-03-12 23:58 | Cardiology Progress Note ---
Assessment/Plan Assessment/Plan CARDIOLOGY COVERAGE FOR DR. DUNNE (1) Paroxysmal atrial fibrillation, now in SR, (2) Paroxysmal atrial flutter, not a candidate for RFA in view of DNR status. (3) Ventilator dependent (4) Altered level of consciousness (5) Sepsis, continue IV ABx therapy. Subjective Subjective Sinus rhythm at rate of 86. Non-verbal. Objective Last 24 Hour Vital Signs Date Time Temp Pulse Resp B/P (MAP) Pulse Ox O2 Delivery O2 Flow Rate FiO2 03/12/19 22:31 86 14 28 03/12/19 20:31 81 13 28 03/12/19 20:00 98.4 80 13 107/56 (73) 100 03/12/19 20:00 78 03/12/19 20:00 Mechanical Ventilator 03/12/19 20:00 28 03/12/19 19:00 83 15 28 03/12/19 17:28 85 13 28 03/12/19 17:14 102 156/62 03/12/19 17:10 102 03/12/19 16:00 Mechanical Ventilator 03/12/19 16:00 97.2 128 15 156/62 (93) 100 03/12/19 16:00 28 03/12/19 15:15 92 15 28 03/12/19 12:38 102 13 28 03/12/19 12:00 107 03/12/19 12:00 28 03/12/19 12:00 98.1 105 13 119/53 (75) 100 03/12/19 12:00 Mechanical Ventilator 03/12/19 11:17 126 122/55 03/12/19 11:13 104 17 28 03/12/19 09:16 126 13 28 03/12/19 08:00 98.8 106 14 122/55 (77) 100 03/12/19 08:00 105 03/12/19 08:00 Mechanical Ventilator 03/12/19 08:00 28 03/12/19 07:10 105 14 28 03/12/19 06:00 97 97/57 03/12/19 05:04 97 16 28 03/12/19 04:00 28 03/12/19 04:00 105 03/12/19 04:00 Mechanical Ventilator 03/12/19 04:00 97.3 105 15 97/57 (70) 100 03/12/19 02:33 101 13 28 03/12/19 00:31 82 14 28 03/12/19 00:00 96.8 97 15 110/51 (70) 100 03/12/19 00:00 Mechanical Ventilator 03/12/19 00:00 28 Intake and Output 03/11/19 03/12/19 19:00 07:00 Intake Total 1073.333 ml 1054.667 ml Output Total 300 ml 200 ml Balance 773.333 ml 854.667 ml Free Water 50 ml 100 ml IV Total 443.333 ml 404.667 ml Tube Feeding 580 ml 550 ml Output Urine Total 300 ml 200 ml 2D Echo: From Dec 2018: LVEF 60%, Mild MR, RVSP 16 mmHg, Nl LV diastolic fxn. Laboratory Tests Test 03/12/19 08:00 03/12/19 16:00 Random Amikacin Level 27.7 MG/L Vancomycin Level Trough 25.5 ug/mL (5.0-12.0) H Objective General Appearance: lethargic, on vent EENT: PERRL/EOMI Neck: no JVD - trach, other Rhythm: NSR Cardiovascular: regular rhythm, no gallop/murmur/rubs Respiratory/Chest: other - clear anteriorly Abdomen: non tender, soft, other - + g tube Extremities: severe edema - 3-4+ pitting edema of distal UE LE bilat Luciano Amaral MD Mar 12, 2019 23:58
[2019-03-13] VITALS: BP 135/65
[2019-03-13] MEDS: dilTIAZem HCl 60mg tab GT SCH ×5 (00:35→23:37)
[2019-03-13] MEDS: NovoLOG Insulin Flexpen SUBQ SCH ×5 (00:43→23:38)
[2019-03-13 04:00] VITALS: BP 105/55
--- NOTE | 2019-03-13 07:25 | NUR ---
NURSE NOTES: Received report form NADINE Dow. Patient is resting in bed, in stable condition. No s/sx of SOB, breathing is even and unlabored, pt is on Vent as ordered. Observed no presence of pain or discomfort at this time. Bed is in lowest position, brakes engaged. Call light is kept within easy reach. Will continue to monitor patient.
[2019-03-13] MEDS: Zinc Sulfate 220mg cap ORAL SCH (08:48)
[2019-03-13] MEDS: Aspirin Baby 81mg NG SCH (08:48)
[2019-03-13] MEDS: Ascorbic Acid 500mg tab ORAL SCH (08:48)
[2019-03-13 08:59] VITALS: BP 119/51
[2019-03-13] MEDS ORDERED: Amikacin 750 MG in NS 110 ML IV SCH (09:00)
--- NOTE | 2019-03-13 11:06 | Surgery Progress Note ---
Surgery Progress Note Subjective Additional Comments n oacute events exam stable on support prognosis guarded ill appearing Objective Last 24 Hour Vital Signs Date Time Temp Pulse Resp B/P (MAP) Pulse Ox O2 Delivery O2 Flow Rate FiO2 03/13/19 10:45 69 12 28 03/13/19 09:00 71 12 28 03/13/19 08:59 98.8 73 16 119/51 (73) 100 03/13/19 08:00 28 03/13/19 08:00 Mechanical Ventilator 03/13/19 07:07 69 12 28 03/13/19 05:30 74 115/53 03/13/19 05:02 75 15 28 03/13/19 04:00 28 03/13/19 04:00 75 03/13/19 04:00 97.5 69 12 105/55 (72) 100 03/13/19 04:00 Mechanical Ventilator 03/13/19 02:50 77 13 28 03/13/19 00:55 80 16 28 03/13/19 00:35 82 135/65 03/13/19 00:00 98.4 82 14 135/65 (88) 100 03/13/19 00:00 Mechanical Ventilator 03/13/19 00:00 83 03/12/19 22:31 86 14 28 03/12/19 20:31 81 13 28 03/12/19 20:00 98.4 80 13 107/56 (73) 100 03/12/19 20:00 78 03/12/19 20:00 Mechanical Ventilator 03/12/19 20:00 28 03/12/19 19:00 83 15 28 03/12/19 17:28 85 13 28 03/12/19 17:14 102 156/62 03/12/19 17:10 102 03/12/19 16:00 Mechanical Ventilator 03/12/19 16:00 97.2 128 15 156/62 (93) 100 03/12/19 16:00 28 03/12/19 15:15 92 15 28 03/12/19 12:38 102 13 28 03/12/19 12:00 107 03/12/19 12:00 28 03/12/19 12:00 98.1 105 13 119/53 (75) 100 03/12/19 12:00 Mechanical Ventilator 03/12/19 11:17 126 122/55 03/12/19 11:13 104 17 28 I&O Intake and Output 03/12/19 03/13/19 19:00 07:00 Intake Total 1023.333 ml 850 ml Output Total 200 ml Balance 1023.333 ml 650 ml Free Water 80 ml 100 ml IV Total 393.333 ml 200 ml Tube Feeding 550 ml 550 ml Output Urine Total 200 ml # Bowel Movements 2 Dressing: saturated Wound: clean Cardiovascular: RSR Respiratory: clear Abdomen: soft, non-tender, present bowel sounds Extremities: no cyanosis Laboratory Tests Test 03/12/19 16:00 Vancomycin Level Trough 25.5 ug/mL (5.0-12.0) H Plan Problems: (1) Malnutrition Assessment & Plan: DAILY ESTIMATED NEEDS: Needs based on Advanced wounds, Underweight, CRITICAL CARE/ 49.5kg 25-35 kcals/kg 1122-4355 total kcals 1.5-2.0 g protein/kg 74-99 g total protein 25-30 mL/kg 4689-5036 total fluid mLs NUTRITION DIAGNOSIS: (1) Increased kcal/prot needs R/T wound healing, sepsis as evidenced by pt w/ advanced wounds, 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 (2) Swallowing difficulty R/T respiratory status as evidenced trach/vent dep and PEG dep (3) Altered GI function R/T pneumatosis, GIB as evidenced by admitted w/ c/o coffee ground emesis, TF initiated at low rate, now @ goal. CURRENT TF:Glucerna 1.5 @50ml/hr x20 hrs ENTERAL NUTRITION RECOMMENDATIONS: Glucerna 1.5 @ 50ml/hr x 20 hrs to provide 1000ml, 1500 kcal, 82.3g pro, 759ml free H2O -> Maintain current TF to meet 100% est needs -> HOB over 30 degrees/ water flush per MD ADDITIONAL RECOMMENDATIONS: * Per SNF: HT=67", OY=681hpk (as of 12/21) Per Dec SNF record -> rd=418gpp, pt edematous, wt trending up Rec to RECALIBRATE bed scale for accurate CBW . 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 Altered mental status Continued malnutrition failure to thrive in adult Decubitus skin ulcers Patient evaluated full physical examination completed wounds unlikely etiology of patient's sepsis Micro noted Chest x-ray reviewed Trach in place on support Care plan initiated Discussed with PCP and consultants recommend SNF with hospice Patients condition continue to deteriorate Thank you for let me participation's care will continue to follow with recommendations Sher Keene Mar 13, 2019 11:06
[2019-03-13 12:00] VITALS: BP 94/41
[2019-03-13 14:07] LABS: ALANINE AMINOTRANSFERASE 19 U/L (12-78); ALBUMIN 0.7 G/DL (3.4-5.0); ALBUMIN/GLOBULIN RATIO 0.2 (1.0-2.7); ALKALINE PHOSPHATASE 321 U/L (46-116); ANION GAP 6 mmol/L (5-15); ASPARTATE AMINO TRANSFERASE 16 U/L (15-37); BILIRUBIN,TOTAL 0.4 MG/DL (0.2-1.0); BLOOD UREA NITROGEN 52 mg/dL (7-18); CALCIUM 7.6 MG/DL (8.5-10.1); CARBON DIOXIDE 26 MMOL/L (21-32); CHLORIDE 113 MMOL/L (98-107); CREATININE 0.9 MG/DL (0.55-1.30); POTASSIUM 5.5 MMOL/L (3.5-5.1); SODIUM 144 MMOL/L (136-145)
--- NOTE | 2019-03-13 14:33 | NUR ---
SUPERINTENDENT DRILLINGLIME BURNER SI: RESP FAILURE TRACH/VENT DEPENDENT,SEPSIS T. 98.8 HR 70 RR 12 B/P 119/51 AC 12 TV 500 FIO2 28% PEEP 5 K 5.5 BUN 52 ALK PHOS 321 WBC 35.00 (03/11) IS: VANCO IV AMIKACIN IV CEFEPIME IV MICAFUNGIN IV FLAGYL IV STEP DOWN STATUS
[2019-03-13 14:53] LABS: HEMATOCRIT 22.8 % (42.0-52.0); HEMOGLOBIN 7.3 G/DL (14.2-18.0); MEAN CORPUSCULAR VOLUME 87 FL (80-99); PLATELET COUNT 360 K/UL (150-450); RED BLOOD COUNT 2.63 M/UL (4.70-6.10); RED CELL DISTRIBUTION WIDTH 18.9 % (11.6-14.8)
[2019-03-13 14:55] LABS: WHITE BLOOD COUNT 29.4 K/UL (4.8-10.8)
[2019-03-13] MEDS ORDERED: NS 275ml ONE (14:59)
[2019-03-13] MEDS ORDERED: Tubing IV Secondary IV ONE (14:59)
--- NOTE | 2019-03-13 15:04 | NUR ---
*-* INSURANCE *-* ALL CLINICALS AND REVIEWS HAVE BEEN FAXED TO: LEESA GAGNON:MYLES [phone] Work Work
--- NOTE | 2019-03-13 15:45 | NUR ---
NURSE NOTES: Called and left message for Dr. Lopes, , regarding abnormal lab values and current temperature of 90.3 F, pt is in [facility] in highest settings. Awaiting call back. Will continue to monitor patient.
[2019-03-13 16:00] VITALS: BP 107/52
--- NOTE | 2019-03-13 16:29 | NUR ---
NURSE NOTES: Second call to Dr. Lopes regarding abnormal lab values and temperature of 95.7 F, [facility] [place] [place] [place]. Awaiting call back. Will continue to monitor patient.
[2019-03-13] MEDS: Micafungin 100 MG in NS 110 ML IVPB SCH (16:48)
--- NOTE | 2019-03-13 19:00 | NUR ---
NURSE NOTES: Dr. Caba seen and examined patient at bedside. Made MD aware of WBC 29.4, Hgb 7.3, potassium level 5.5 and temperature of 95.7 F on [facility], BP of 104/82. Dr. Caba acknowledged and ordered CBC lab x 2 days, CMP lab x 2 days, TSH lab tomorrow AM, type and cross lab no blood transfusion at this time, Kayexalate 15 gm GT x 1, NS IVF 50 ml/hr x one for 12 hours only, duoneb breathing treatment q6hr - made Dr. Caba aware aware that patient is allergic to tiotropium, Dr. Caba acknowledged and ordered Albuterol HHN Q6HRT no duoneb. Orders entered, noted, and carried out. Will continue to monitor patient.
--- NOTE | 2019-03-13 19:20 | NUR ---
NURSE NOTES: Pt report received from Sam Salas day shift RN SDU. pt remains stable. pt is obtunded neuro martinez. pt is on leather stamper showing NSR, no cardiac distress noted. pt is on trach to vent, pt is satting 99%, no acute resp distress noted. pt bed is low, locked, armed, bed rails up times 3, call light within reach. will follow plan of care.
--- NOTE | 2019-03-13 19:30 | NUR ---
HAND-OFF: Report given to NADINE Crabtree.
[2019-03-13 20:00] VITALS: BP 115/55
[2019-03-13] MEDS ORDERED: Sodium Polystyrene Sulfonate 15gm Powder GT SCH (21:00)
[2019-03-13] MEDS ORDERED: Ascorbic Acid 500mg tab GT SCH (21:00)
--- NOTE | 2019-03-13 21:16 | Pulmonology Progress Note ---
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 SEPSIS: PsA UTI and sepsis 2. Lactic acidosis - RESOLVED 3. Tracheostomy status. 4. Dysphagia, status post G-tube. 5. Encephalopathy. 6. Multiple decubitus ulcer. 7. Glaucoma. 8. Hypertension, CAD, CHF with diastolic dysfunction. 9. DNAR. 10. Wound - surgery following 11. Elevated K TREATMENT PLAN: 1. Ventilatory support, settings reviewed. 2. Titrate O2. 3. Atrovent HHN's 4. Abx per ID 5. Monitor volumes and renal function, low dose IVF 6. Wound care 7. TF's 8. D/C Heparin subcutaneous given worsening anemia. 9. Transfuse PRBC 10. DNAR, continue to discuss goals of care, consider transition back to SNF with hospice - ongoing discussions with niece 11. Surgery following for wound 12. Kayexalate x 1 Subjective Allergies: Coded Allergies: DORZOLAMIDE (Unverified Allergy, Unknown, 12/23/18) LISINOPRIL (Unverified Allergy, Unknown, 12/23/18) TIMOLOL (Unverified Allergy, Unknown, 12/23/18) TIOTROPIUM (Unverified Allergy, Unknown, 12/23/18) Subjective WCt [address] noted AFVSS O2 needs stable on vent No sig secretions Objective Vital Signs Noted General Appearance: cachetic, dry mm HEENT: status post trach Respiratory/Chest: crackles/rales, rhonchi Cardiovascular: normal peripheral pulses, normal rate, regular rhythm Abdomen: normal bowel sounds, soft, non tender, no organomegaly, non distended , no mass, other - GT Extremities: no cyanosis, no clubbing, no edema Microbiology Date/Time Source Procedure Growth Status 03/07/19 22:30 External Cath Urine Culture - Preliminary Yeast Species Resulted Laboratory Tests 03/09/19 03:50: White Blood Count 32.5*H, Red Blood Count 2.56L, Hemoglobin 6.8*L, Hematocrit 21.6L, Mean Corpuscular Volume 85, Mean Corpuscular Hemoglobin 26.4L, Mean Corpuscular Hemoglobin Concent 31.2L, Red Cell Distribution Width 18.1H, Platelet Count 177, Mean Platelet Volume 9.5, Neutrophils (%) (Auto) , Lymphocytes (%) (Auto) , Monocytes (%) (Auto) , Eosinophils (%) (Auto) , Basophils (%) (Auto) , Differential Total Cells Counted 100, Neutrophils % ( Manual) 77H, Lymphocytes % (Manual) 9L, Monocytes % (Manual) 14H, Eosinophils % (Manual) 0, Basophils % (Manual) 0, Band Neutrophils 0, Platelet Estimate Adequate, Platelet Morphology Normal, Hypochromasia 4+, Anisocytosis 2+, Sodium Level 143, Potassium Level 5.1, Chloride Level 111H, Carbon Dioxide Level 26, Anion Gap 7, Blood Urea Nitrogen 42H, Creatinine 0.7, Estimat Glomerular Filtration Rate , Glucose Level 182H, Calcium Level 7.0L, Amikacin Level Trough 19.3H, Vancomycin Level Trough 22.6H 03/09/19 19:45: Random Amikacin Level [Pending] Current Medications Medications (Trade) Dose Ordered Sig/Katie Route PRN Reason Start Time Stop Time Status Last Admin Dose Admin Acetaminophen (Tylenol) 650 mg Q4H PRN GT Mild Pain/Temp > 100.5 03/04/19 06:30 04/03/19 06:29 03/06/19 23:01 Amikacin Protocol (Amikacin pharmacy to dose) 1 ea DAILY PRN MISC Per rx protocol 03/09/19 16:30 04/08/19 16:29 Amikacin Sulfate 1000 mg/Sodium Chloride 114 ml @ 114 mls/hr Q36H IV 03/10/19 20:00 03/19/19 19:59 Ascorbic Acid (Vitamin C) 250 mg EVERY 12 HOURS ORAL 03/06/19 21:00 04/02/19 17:59 03/09/19 09:44 Aspirin (ASA) 81 mg DAILY NG 03/06/19 09:00 04/05/19 08:59 03/09/19 09:44 Cefepime HCl 1 gm/ Dextrose 50 ml @ 100 mls/hr Q12H IVPB 03/07/19 23:00 03/14/19 22:59 03/09/19 13:41 Dextrose (Dextrose 50%) 25 ml Q30M PRN IV Hypoglycemia 03/01/19 12:30 03/31/19 12:29 03/04/19 18:50 Dextrose (Dextrose 50%) 50 ml Q30M PRN IV Hypoglycemia 03/01/19 12:30 03/31/19 12:29 03/08/19 17:07 Diltiazem HCl (Cardizem) 60 mg EVERY 6 HOURS GT 03/05/19 12:00 04/04/19 11:59 03/09/19 13:50 Fluconazole/ Sodium Chloride 100 ml @ 100 mls/hr Q24H IV 03/09/19 20:00 03/16/19 19:59 03/09/19 19:37 Heparin Sodium (Porcine) (Heparin 5000 units/ml) 5,000 units EVERY 12 HOURS SUBQ 03/01/19 21:00 03/31/19 20:59 03/09/19 09:46 Insulin Aspart (NovoLOG) EVERY 6 HOURS SUBQ 03/04/19 18:00 03/31/19 16:29 03/09/19 06:00 Ipratropium Ullin (Atrovent) 500 mcg Q4H PRN HHN Shortness of Breath 03/06/19 14:30 03/11/19 14:29 Ipratropium Ullin (Atrovent) 500 mcg Q6HRT HHN 03/06/19 19:00 03/11/19 18:59 03/09/19 19:30 Metronidazole (Flagyl) 500 mg EVERY 8 HOURS ORAL 03/09/19 22:00 03/16/19 21:59 Phosphorus (Phospha 250 Neutral) 250 mg EVERY 8 HOURS GT 03/06/19 14:00 04/01/19 08:59 03/09/19 13:51 Sodium Chloride 1,000 ml @ 125 mls/hr Q8H IV 03/06/19 18:15 04/05/19 18:14 03/09/19 18:20 Vancomycin HCl (Vanco rx to dose) 1 ea DAILY PRN MISC Per rx protocol 03/09/19 16:30 04/08/19 16:29 Vancomycin HCl 750 mg/Sodium Chloride 275 ml @ 183.333 mls/hr Q24H IVPB 03/09/19 17:00 03/14/19 16:59 03/09/19 18:35 Zinc Sulfate (Zinc Sulfate) 220 mg DAILY ORAL 03/04/19 09:00 03/14/19 08:59 03/09/19 09:44 Subjective ROS Limited/Unobtainable: No Allergies: Coded Allergies: DORZOLAMIDE (Unverified Allergy, Unknown, 12/23/18) LISINOPRIL (Unverified Allergy, Unknown, 12/23/18) TIMOLOL (Unverified Allergy, Unknown, 12/23/18) TIOTROPIUM (Unverified Allergy, Unknown, 12/23/18) Objective Last 24 Hour Vital Signs Date Time Temp Pulse Resp B/P (MAP) Pulse Ox O2 Delivery O2 Flow Rate FiO2 03/13/19 19:30 71 12 28 03/13/19 17:00 70 12 28 03/13/19 16:00 72 03/13/19 16:00 28 03/13/19 16:00 95.7 75 16 107/52 (70) 100 03/13/19 16:00 Mechanical Ventilator 03/13/19 15:06 71 12 28 03/13/19 13:29 69 12 28 03/13/19 12:00 28 03/13/19 12:00 Mechanical Ventilator 03/13/19 12:00 90.3 74 16 94/41 (58) 100 03/13/19 12:00 70 120/58 03/13/19 12:00 77 03/13/19 10:45 69 12 28 03/13/19 09:00 71 12 28 03/13/19 08:59 98.8 73 16 119/51 (73) 100 03/13/19 08:00 73 03/13/19 08:00 28 03/13/19 08:00 Mechanical Ventilator 03/13/19 07:07 69 12 28 03/13/19 05:30 74 115/53 03/13/19 05:02 75 15 28 03/13/19 04:00 03/13/19 04:00 75 03/13/19 04:00 97.5 69 12 105/55 (72) 100 03/13/19 04:00 Mechanical Ventilator 03/13/19 02:50 77 13 28 03/13/19 00:55 80 16 28 03/13/19 00:35 82 135/65 03/13/19 00:00 98.4 82 14 135/65 (88) 100 03/13/19 00:00 Mechanical Ventilator 2/3/20 00:00 83 03/12/19 22:31 86 14 28 Intake and Output 03/12/19 03/13/19 19:00 07:00 Intake Total 1023.333 ml 900 ml Output Total 200 ml Balance 1023.333 ml 700 ml Free Water 80 ml 100 ml IV Total 393.333 ml 200 ml Tube Feeding 550 ml 600 ml Output Urine Total 200 ml # Bowel Movements 2 Laboratory Tests 03/13/19 13:40: Sodium Level 144, Potassium Level 5.5H, Chloride Level 113H, Carbon Dioxide Level 26, Anion Gap 6, Blood Urea Nitrogen 52H, Creatinine 0.9, Estimat Glomerular Filtration Rate , Glucose Level 194H, Calcium Level 7.6L, Total Bilirubin 0.4, Aspartate Amino Transf (AST/SGOT) 16, Alanine Aminotransferase ( ALT/SGPT) 19, Alkaline Phosphatase 321H, Total Protein 4.7L, Albumin 0.7L, Globulin 4.0, Albumin/Globulin Ratio 0.2L 03/13/19 14:38: White Blood Count 29.4*H, Red Blood Count 2.63L, Hemoglobin 7.3L, Hematocrit 22.8L, Mean Corpuscular Volume 87, Mean Corpuscular Hemoglobin 27.9, Mean Corpuscular Hemoglobin Concent 32.2, Red Cell Distribution Width 18.9H, Platelet Count 360, Mean Platelet Volume 8.4, Neutrophils (%) (Auto) , Lymphocytes (%) (Auto) , Monocytes (%) (Auto) , Eosinophils (%) (Auto) , Basophils (%) (Auto) , Differential Total Cells Counted 100, Neutrophils % ( Manual) 77H, Lymphocytes % (Manual) 6L, Monocytes % (Manual) 6, Eosinophils % ( Manual) 2, Basophils % (Manual) 0, Myelocytes % 2H, Band Neutrophils 7, Nucleated Red Blood Cells 2, Platelet Estimate Adequate, Platelet Morphology Normal, Polychromasia 1+, Hypochromasia 1+, Anisocytosis 1+ Current Medications Medications (Trade) Dose Ordered Sig/Katie Route PRN Reason Start Time Stop Time Status Last Admin Dose Admin Acetaminophen (Tylenol) 650 mg Q4H PRN GT Mild Pain/Temp > 100.5 03/04/19 06:30 04/03/19 06:29 03/06/19 23:01 Albuterol Sulfate (Proventil) 2.5 mg Q6HRT HHN 03/14/19 01:00 03/19/19 00:59 Amikacin Protocol (Amikacin pharmacy to dose) 1 ea DAILY PRN MISC Per rx protocol 03/09/19 16:30 04/08/19 16:29 Amikacin Sulfate 750 mg/Sodium Chloride 113 ml @ 113 mls/hr Q36H IV 03/13/19 09:00 03/20/19 08:59 03/13/19 09:12 Ascorbic Acid (Vitamin C) 250 mg EVERY 12 HOURS GT 03/13/19 21:00 04/02/19 17:59 03/13/19 20:19 Aspirin (ASA) 81 mg DAILY NG 03/06/19 09:00 04/05/19 08:59 03/13/19 08:48 Cefepime HCl 1 gm/ Dextrose 50 ml @ 100 mls/hr Q12H IVPB 03/12/19 23:00 03/19/19 22:59 03/13/19 11:01 Dextrose (Dextrose 50%) 25 ml Q30M PRN IV Hypoglycemia 03/01/19 12:30 03/31/19 12:29 03/04/19 18:50 Dextrose (Dextrose 50%) 50 ml Q30M PRN IV Hypoglycemia 03/01/19 12:30 03/31/19 12:29 03/08/19 17:07 Diltiazem HCl (Cardizem) 60 mg EVERY 6 HOURS GT 03/05/19 12:00 04/04/19 11:59 03/13/19 12:00 Insulin Aspart (NovoLOG) EVERY 6 HOURS SUBQ 03/04/19 18:00 03/31/19 16:29 03/13/19 17:55 Metronidazole 100 ml @ 100 mls/hr Q8HR IVPB 03/10/19 14:00 03/17/19 13:59 03/13/19 14:41 Micafungin Sodium 100 mg/Sodium Chloride 110 ml @ 110 mls/hr Q24H IVPB 03/10/19 15:00 03/17/19 14:59 03/13/19 16:48 Sodium Polystyrene Sulfonate (Kayexalate) 15 gm ONCE GT 03/13/19 21:00 03/13/19 22:30 03/13/19 20:18 Sodium Chloride 600 ml @ 50 mls/hr Q12H ONCE IV 03/13/19 21:00 03/14/19 08:59 03/13/19 20:23 Vancomycin HCl (Vanco rx to dose) 1 ea DAILY PRN MISC Per rx protocol 03/12/19 13:00 04/11/19 12:59 Vancomycin HCl 1 gm/Dextrose 275 ml @ 183.708 mls/hr Q48H IVPB 03/14/19 17:00 03/19/19 16:59 Zinc Sulfate (Zinc Sulfate) 220 mg DAILY ORAL 03/04/19 09:00 03/14/19 08:59 03/13/19 08:48 Cody Caba MD Mar 13, 2019 21:16
--- NOTE | 2019-03-13 23:54 | Cardiology Progress Note ---
Assessment/Plan Assessment/Plan CARDIOLOGY COVERAGE FOR DR. DUNNE (1) Paroxysmal atrial fibrillation, now in SR, (2) Paroxysmal atrial flutter, not a candidate for RFA in view of DNR status. (3) Ventilator dependent respiratory failure. (4) Altered level of consciousness, non-verbal status. (5) Sepsis, continue IV ABx therapy. Subjective Subjective Sinus rhythm at rate of 95. Non-verbal. Objective Last 24 Hour Vital Signs Date Time Temp Pulse Resp B/P (MAP) Pulse Ox O2 Delivery O2 Flow Rate FiO2 03/13/19 23:37 95 175/59 03/13/19 21:30 95 13 28 03/13/19 20:00 97.5 84 18 115/55 (75) 100 03/13/19 20:00 Mechanical Ventilator 03/13/19 20:00 84 03/13/19 20:00 28 03/13/19 19:30 71 12 28 03/13/19 17:00 70 12 28 03/13/19 16:00 72 03/13/19 16:00 28 03/13/19 16:00 95.7 75 16 107/52 (70) 100 03/13/19 16:00 Mechanical Ventilator 03/13/19 15:06 71 12 28 03/13/19 13:29 69 12 28 03/13/19 12:00 28 03/13/19 12:00 Mechanical Ventilator 03/13/19 12:00 90.3 74 16 94/41 (58) 100 03/13/19 12:00 70 120/58 03/13/19 12:00 77 03/13/19 10:45 69 12 28 03/13/19 09:00 71 12 28 03/13/19 08:59 98.8 73 16 119/51 (73) 100 03/13/19 08:00 73 03/13/19 08:00 28 03/13/19 08:00 Mechanical Ventilator 03/13/19 07:07 69 12 28 03/13/19 05:30 74 115/53 03/13/19 05:02 75 15 28 03/13/19 04:00 28 03/13/19 04:00 75 03/13/19 04:00 97.5 69 12 105/55 (72) 100 03/13/19 04:00 Mechanical Ventilator 03/13/19 02:50 77 13 28 03/13/19 00:55 80 16 28 03/13/19 00:35 82 135/65 03/13/19 00:00 98.4 82 14 135/65 (88) 100 03/13/19 00:00 Mechanical Ventilator 03/13/19 00:00 83 Intake and Output 03/12/19 03/13/19 19:00 07:00 Intake Total 1023.333 ml 900 ml Output Total 200 ml Balance 1023.333 ml 700 ml Free Water 80 ml 100 ml IV Total 393.333 ml 200 ml Tube Feeding 550 ml 600 ml Output Urine Total 200 ml # Bowel Movements 2 2D Echo: From Dec 2018: LVEF 60%, Mild MR, RVSP 16 mmHg, Nl LV diastolic fxn. Laboratory Tests Test 03/13/19 13:40 03/13/19 14:38 Sodium Level 144 MMOL/L (136-145) Potassium Level 5.5 MMOL/L (3.5-5.1) H Chloride Level 113 MMOL/L (98-107) H Carbon Dioxide Level 26 MMOL/L (21-32) Anion Gap 6 mmol/L (5-15) Blood Urea Nitrogen 52 mg/dL (7-18) H Creatinine 0.9 MG/DL (0.55-1.30) Estimat Glomerular Filtration Rate mL/min (>60) Glucose Level 194 MG/DL (74-106) H Calcium Level 7.6 MG/DL (8.5-10.1) L Total Bilirubin 0.4 MG/DL (0.2-1.0) Aspartate Amino Transf (AST/SGOT) 16 U/L (15-37) Alanine Aminotransferase (ALT/SGPT) 19 U/L (12-78) Alkaline Phosphatase 321 U/L (46-116) H Total Protein 4.7 G/DL (6.4-8.2) L Albumin 0.7 G/DL (3.4-5.0) L Globulin 4.0 g/dL Albumin/Globulin Ratio 0.2 (1.0-2.7) L White Blood Count 29.4 K/UL (4.8-10.8) *H Red Blood Count 2.63 M/UL (4.70-6.10) L Hemoglobin 7.3 G/DL (14.2-18.0) L Hematocrit 22.8 % (42.0-52.0) L Mean Corpuscular Volume 87 FL (80-99) Mean Corpuscular Hemoglobin 27.9 PG (27.0-31.0) Mean Corpuscular Hemoglobin Concent 32.2 G/DL (32.0-36.0) Red Cell Distribution Width 18.9 % (11.6-14.8) H Platelet Count 360 K/UL (150-450) Mean Platelet Volume 8.4 FL (6.5-10.1) Neutrophils (%) (Auto) % (45.0-75.0) Lymphocytes (%) (Auto) % (20.0-45.0) Monocytes (%) (Auto) % (1.0-10.0) Eosinophils (%) (Auto) % (0.0-3.0) Basophils (%) (Auto) % (0.0-2.0) Differential Total Cells Counted 100 Neutrophils % (Manual) 77 % (45-75) H Lymphocytes % (Manual) 6 % (20-45) L Monocytes % (Manual) 6 % (1-10) Eosinophils % (Manual) 2 % (0-3) Basophils % (Manual) 0 % (0-2) Myelocytes % 2 % (0-0) H Band Neutrophils 7 % (0-8) Nucleated Red Blood Cells 2 /100 WBC Platelet Estimate Adequate Platelet Morphology Normal Polychromasia 1+ Hypochromasia 1+ Anisocytosis 1+ Objective General Appearance: lethargic, on vent EENT: PERRL/EOMI Neck: no JVD - trach, other Rhythm: NSR Cardiovascular: regular rhythm, no gallop/murmur/rubs Respiratory/Chest: other - clear anteriorly Abdomen: non tender, soft, other - + g tube Extremities: severe edema - 3-4+ pitting edema of distal UE LE bilat Luciano Amaral MD Mar 13, 2019 23:54
[2019-03-14] VITALS: BP 151/59
[2019-03-14] MEDS: Albuterol ud Inhalation HHN SCH ×2 (01:03→07:00)
[2019-03-14 04:00] VITALS: BP 144/62
[2019-03-14] MEDS: NovoLOG Insulin Flexpen SUBQ SCH (05:36)
[2019-03-14 05:39] VITALS: BP 128/63
[2019-03-14] MEDS: dilTIAZem HCl 60mg tab GT SCH (05:39)
[2019-03-14 06:39] LABS: HEMATOCRIT 23.8 % (42.0-52.0); HEMOGLOBIN 7.5 G/DL (14.2-18.0); MEAN CORPUSCULAR VOLUME 88 FL (80-99); PLATELET COUNT 369 K/UL (150-450); RED BLOOD COUNT 2.71 M/UL (4.70-6.10); RED CELL DISTRIBUTION WIDTH 19.6 % (11.6-14.8)
--- NOTE | 2019-03-14 07:01 | NUR ---
RESPIRATORY NOTE: received pt on current vent settings. pt is vent dependent with trach size shiley [address], secured via trach tie/guard. no signs of resp distress at this time. alarms are on and audible with back up trach and ambu bag at bedside. will cont to monitor.
--- NOTE | 2019-03-14 07:25 | NUR ---
HAND-OFF: Report given to JEFFREY M[facility] ICU SDU.
[2019-03-14 07:27] LABS: WHITE BLOOD COUNT 27.6 K/UL (4.8-10.8)
[2019-03-14 07:28] LABS: ALANINE AMINOTRANSFERASE 23 U/L (12-78); ALBUMIN 0.8 G/DL (3.4-5.0); ALBUMIN/GLOBULIN RATIO 0.2 (1.0-2.7); ALKALINE PHOSPHATASE 321 U/L (46-116); ANION GAP 7 mmol/L (5-15); ASPARTATE AMINO TRANSFERASE 19 U/L (15-37); BILIRUBIN,TOTAL 0.4 MG/DL (0.2-1.0); BLOOD UREA NITROGEN 58 mg/dL (7-18); CALCIUM 7.7 MG/DL (8.5-10.1); CARBON DIOXIDE 24 MMOL/L (21-32); CHLORIDE 113 MMOL/L (98-107); POTASSIUM 5.7 MMOL/L (3.5-5.1); SODIUM 144 MMOL/L (136-145)
--- NOTE | 2019-03-14 07:37 | NUR ---
PRONOUNCEMENT: No Code. Called to pronounce patient. Absence of spontaneous respirations, no cardiac or breath sounds on auscultation. Pupils fixed and dilated. No carotid pulse or chest movement. Patient at 0729. DR hampton notified PER garcia. Family was notified nahum perez .
--- NOTE | 2019-03-14 07:45 | NUR ---
NURSE NOTES: Report received from Sam White During shift bedside report, pt's O2Sat was reading in the 50's, despite being on Ventilator. Pt went sunil to the 30's and then asystole. No Code as pt was DNR/DNI. Absence of spontaneous respirations, no cardiac or breath sounds on auscultation. Pupils fixed and dilated. No carotid pulse or chest movement. Patient at 0729. Charge nurse Jayna notified Anika John, pt's niece . [employer] notified at 07:40, Spoke to Raeann [phone] Crime Lab Analyst notified at 07:44, Spoke to Martha, who informed typewriter repairer that this is not a coroners case. Dr. Adler notified at 07:45.
[2019-03-14] MEDS ORDERED: Vancomycin 1gm/D5W 275ml IVPB SCH ×2 (17:00)
[2019-03-15] MEDS ORDERED: Amikacin 750 MG in NS 110 ML IV SCH (09:00)
--- NOTE | 2019-03-16 09:56 | Discharge Summary ---
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 Apparently his niece recognized that patient had altered mental status and requested transfer to the hospital. Patient subsequently was transferred to this facility . P atient was stable on ventilator, but blood pressure was low. Patient also had a lactic acidosis , which resolved with IV hydration . Laboratory work-up revealed marked leukocytosis WBC 21.3, hemoglobin 8.6, hematocrit 27.4. ABG was stable on current ventilator settings. BUN 35, creatinine 0.5. Lactic acid 2.9 which improved to 2.1 after IV hydration. Calcium 8.2, phosphorus 2.3 ,magnesium 2.6 . Stable LFT Troponin 0.054, pro BNP 74190 . Urinalysis was grossly positive for UTI. Chest x-ray revealed COPD and mild pulmonary vascular congestion. Patient with DNR/DNI status as per POLST with comfort focused treatment. Patient subsequently admitted to stepdown unit for further management. CONSULTANTS: conductor sleeping car Dr. Melendez ID specialist Dr. Pool racking machine operator Dr[facility] COURSE: Patient admitted to stepdown unit. Ventilator support and tracheostomy care provided. Pulmonary toilet provided . Patient was followed -up with chest x-ray . Patient started on empiric antibiotics . ID specialist followed. Urine culture revealed Pseudomonas . Influenza swab test was negative. Sputum culture revealed Pseudomonas. Blood culture revealed Pseudomonas. Bacteremia was likely due to UTI and PNA. Antibiotic regimen was optimized as per ID specialist recommendation. Strict aspiration precaution maintained. G-tube feeding continued. Volumes were closely monitored. DVT prophylaxis with heparin provided. Hemoglobin and hematocrit were closely monitored with goal to keep hemoglobin above 7. Patient undergone transfusion of 1 unit of packed red blood cells for hemoglobin 6.8. Leukocytosis initially was trended down , but then started to trend up again. Repeated urine culture on 03/07 revealed Aruna , and repeated blood culture on 03/06 showed Pseudomonas and on 03/08 showed Aruna. Wound care for multiple decubitus ulcers, present on admission , provided as per surgeon recommendation. Tube feeding formula with goal rate and protein supplements provided as per screening unit registered nurse recommendation CT of the abdomen and pelvis revealed excessive and progressive decubitus ulceration in the rectal coccygeal region with equally progressive destructive changes of the proximal coccyx. Interim resolution of previously demonstrated gastric wall pneumatosis. Gastrostomy in good position. Cholelithiasis. Compressive atelectasis. Anasarca with large bilateral pleural effusion Trimming Assembler followed. Patient was noted to have paroxysmal atrial fibrillation. Diltiazem provided for suppression of atrial arrhythmia and rate control in the event of recurrent atrial fibrillation. Although first troponin was negative, the repeated three troponin were elevated. Per conductor sleeping car patient had acute myocardial infarction, likely due to hypoperfusion. Antiplatelet therapy with aspirin continued. Blood sugar was managed with sliding scale of insulin. Exploration Engineer recommended comfort measures and mild IV hydration to support blood pressure. Electrolytes corrected as needed , and nephrotoxins were avoided. All consultants agreed that patient prognosis was extremely poor. He demosnatrted multisystem organ failure. Patient condition was further deteriorated. He was pronounced at 7:29 AM to 03/14/2019. Cause of : cardiopulmonary arrest FINAL DIAGNOSES: Sepsis with Pseudomonas bacteremia Pseudomonas UTI Pseudomonas pneumonia Aruna fungemia Aruna UTI Possible osteomyelitis/ per CT imaging Lactic acidosis Chronic respiratory failure , ventilator dependent with tracheostomy status Dysphagia, status post G-tube Acute myocardial infarction ,likely due to hypoperfusion Paroxysmal atrial fibrillation Severe protein calorie malnutrition Multiorgan system failure Dehydration Encephalopathy Multiple decubitus ulcers , present on admission Hypertension Coronary artery disease CHF with diastolic dysfunction Glaucoma DNAR status I have been assigned to dictate discharge summary for this account. I was not involved in the patient's management. Simi Mcneal NP Mar 16, 2019 09:56
--- NOTE | 2019-03-16 15:21 | NUR ---
*-* INSURANCE *-* ALL CLINICALS AND REVIEWS HAVE BEEN FAXED TO: LEESA GAGNON:MYLES [phone] Work Work
== END 2019-03-14 07:27 | disposition expired | DRG 870 ==
LOC: EDBD 02:02 → EDUNIT# 02:02 → EMR 02:30 → EDBEDREQ 06:48 → 2W 06:55
PROC: 5A1955Z Respiratory Ventilation, Greater than 96 Consecutive Hours (ICD-10-PCS; principal; 2019-03-01)
DX: A41.52 Sepsis due to Pseudomonas (principal); L89.154 Pressure ulcer of sacral region, stage 4; R65.21 Severe sepsis with septic shock; J15.1 Pneumonia due to Pseudomonas; I21.4 Non-ST elevation (NSTEMI) myocardial infarction; E43 Unspecified severe protein-calorie malnutrition; G92 Toxic encephalopathy; I50.33 Acute on chronic diastolic (congestive) heart failure; N39.0 Urinary tract infection, site not specified; B37.49 Other urogenital candidiasis; M86.9 Osteomyelitis, unspecified; J96.12 Chronic respiratory failure with hypercapnia; J44.0 Chronic obstructive pulmonary disease with (acute) lower respiratory infection; I48.92 Unspecified atrial flutter; N17.9 Acute kidney failure, unspecified; I47.1 Supraventricular tachycardia; K92.2 Gastrointestinal hemorrhage, unspecified; R13.10 Dysphagia, unspecified; Z93.0 Tracheostomy status; Z93.1 Gastrostomy status; I48.0 Paroxysmal atrial fibrillation; Z68.24 Body mass index [BMI] 24.0-24.9, adult; E86.0 Dehydration; I11.0 Hypertensive heart disease with heart failure; N40.0 Benign prostatic hyperplasia without lower urinary tract symptoms; D64.9 Anemia, unspecified; R62.7 Adult failure to thrive; I25.10 Atherosclerotic heart disease of native coronary artery without angina pectoris; H40.9 Unspecified glaucoma; Z66 Do not resuscitate; E83.39 Other disorders of phosphorus metabolism; Z86.73 Personal history of transient ischemic attack (TIA), and cerebral infarction without residual deficits; Z51.5 Encounter for palliative care; I25.2 Old myocardial infarction; E87.5 Hyperkalemia; F32.9 Major depressive disorder, single episode, unspecified; R68.0 Hypothermia, not associated with low environmental temperature
CPT/HCPCS: 36415; 36600; 71045; 74176; 80048; 80053; 80150; 80202; 81003; 82550; 82553; 82803; 82947; 82962; 83605; 83690; 83735; 83880; 84100; 84443; 84484; 85007; 85025; 86710; 86850; 86900; 86901; 86920; 87040; 87070; 87081; 87086; 87181; 87205; 93005; 94002; 94003; 94664; 96365; 99291; 99292; C9399; J1815; J7030; J7620